=== PATIENT | female | born 1950 | race Caucasian/White ===

== ENCOUNTER → 2016-10-08 | Outpatient (CLI) | payer MEDICARE, MEDICAID ==
[~2016-10-08] MED LIST: ALEN70TA2 PO; ALEN70TA47 PO; BACL10TA PO; CIPR-226 PO; CIPR250S2 PO; DICL75TA2 PO; DIPH25CA79 PO; FLUT16SP22 NS; GABA300C PO; LEVO50TA6 PO; NITR-65 PO; NITR100C10 PO; OMEP20CA12 PO; OXYC-197 PO; OXYC-471 PO; POLY119P5 PO; PRD20T PO; ROSU10TA PO; RT-ALBUINH IH
--- OUTSIDE RECORDS SUMMARY | 2016-10-08 12:53 | XMS REPORT | Continuity of Care Document ---
Author Author [facility] Organization [facility] Address Unknown Phone Unavailable Care Team Providers Care Torpedo Specialist Name Role Phone PCP Unavailable Source Comments Some departments are not documenting in the electronic medical record. If you do not see the information that you expected, contact Release of Information in the Health Information Management department at [phone] for further assistance in locating additional records.[facility] Active Allergies and Adverse Reactions Allergen Noted Date Severity Reactions Comments Amoxicillin 02/01/2003 Allergy recorded in SMS: Amoxicillin~Reactions: HIVES Clarithromycin 02/01/2003 Allergy recorded in SMS: Biaxin~Reactions: HIVES~HIVES/BLISTERS Iodine 02/01/2003 Allergy recorded in SMS: TOPICAL IODINE~Reactions: HIVES~HIVES/BLISTERS Penicillins 02/01/2003 High Allergy recorded in SMS: PCN~Reactions: HIVES Current Medications Not on file Active Problems Not on file Social History Tobacco Use Types Packs/Day Years Used Date Never Assessed Plan of Care Health Maintenance Due Date Last Done Comments Physical (Comprehensive) 1957 Exam Pertussis Vaccine 1960 Tetanus Vaccine 1966 Breast Cancer Screening 1989 Colorectal Cancer 1999 Screening Shingles Vaccine 2009 Osteoporosis Screening 2014 Prevnar/Pneumovax (#1) 2014 Influenza Vaccine 05/14/2016 Results from Last 3 Months Not on file
--- NOTE | 2016-10-08 19:28 | Diagnostic Imaging Report ---
Digital mammogram bilateral screening. This study was compared to the prior exams of 01/01/2015, 06/27/2013, and 04/18/2012. At this time, there are no current complaints. The current study was also evaluated with a Computer Aided Detection (CAD) system. FINDINGS: There are scattered fibroglandular densities in both breasts which could obscure a lesion. In the midportion of the left breast approximately 6-7 cm deep to the nipple there are a few scattered microcalcifications. I am not certain that these calcifications have changed significantly since the prior exams of 06/27/2013 and 01/01/2015. They are more conspicuous on this study, however. I would recommend that a compression/magnification view of this area be obtained in the CC and MLO projections so that these calcifications can be further studied. The overall appearance of the breasts is otherwise stable. There is no primary or secondary sign of malignancy noted. IMPRESSION: Additional mammographic views of the left breast would be recommended for further study. ACR BI-RADS Category 0: Incomplete. (Need additional imaging evaluation). Result letter will be mailed to the patient. Note: At least 10% of breast cancer is not imaged by mammography. Dictated by: Dictated on workstation # [id number]
== END ==
LOC: RAD 12:49
PROVIDERS: ATTEND Nurse Practitioner Family
DX: Z12.31 Encounter for screening mammogram for malignant neoplasm of breast (principal)

== ENCOUNTER → 2016-10-16 | Outpatient (CLI) | payer MEDICARE, MEDICAID ==
--- OUTSIDE RECORDS SUMMARY | 2016-10-16 07:48 | XMS REPORT | Continuity of Care Document ---
Author Author [facility] Organization [facility] Address Unknown Phone Unavailable Care Team Providers Care Wool Classer Name Role Phone PCP Unavailable Source Comments Some departments are not documenting in the electronic medical record. If you do not see the information that you expected, contact Release of Information in the Health Information Management department at [phone] for further assistance in locating additional records.[facility] Active Allergies and Adverse Reactions Allergen Noted [...]
--- NOTE | 2016-10-16 18:57 | Diagnostic Imaging Report ---
CC and lateral magnification views for calcifications are performed. INDICATION: Central slightly inferior left breast calcifications seen on screening. The current study was also evaluated with a Computer Aided Detection (CAD) system. FINDINGS: Focal compression views demonstrate loosely clustered punctate calcifications without associated mass. IMPRESSION: Loosely clustered punctate calcifications in the central slightly inferior aspect of the left breast. These are favored to be benign. Ultrasound correlation is pending. ACR BI-RADS Category 0: Incomplete. (Needs additional imaging evaluation). Result letter will be mailed to the patient. Note: At least 10% of breast cancer is not imaged by mammography. Dictated by: Dictated on workstation # [id number]
--- NOTE | 2016-10-16 19:01 | Diagnostic Imaging Report ---
EXAMINATION: Left breast ultrasound. INDICATION: Calcification seen in the inferior aspect of the left breast. FINDINGS: Unremarkable breast parenchyma is seen with no focal lesion. The four quadrants and retroareolar region of the left breast were scanned. IMPRESSION: Negative study. Six month followup to observe the calcifications of interest is recommended. ACR BI-RADS Category 2: Benign findings. Result letter will be mailed to the patient. Note: At least 10% of breast cancer is not imaged by mammography. Dictated by: Dictated on workstation # [id number]
== END ==
LOC: RAD 07:44
PROVIDERS: ATTEND Nurse Practitioner Family
DX: R92.8 Other abnormal and inconclusive findings on diagnostic imaging of breast (principal)
CPT/HCPCS: 76641

== ENCOUNTER → 2017-11-10 | Outpatient (CLI) | payer MEDICARE, MEDICAID ==
--- NOTE | 2017-11-10 18:43 | Diagnostic Imaging Report ---
INDICATION: Followup of left breast calcifications. Comparison is made with prior mammogram from 10/08/2016 and 01/01/2015. The current study was also evaluated with a Computer Aided Detection (CAD) system. FINDINGS: The cluster of punctate calcifications in the inferior left breast appears to be stable. No associated soft tissue mass is identified. No new calcifications are seen. The axillae are unremarkable. IMPRESSION: Stable left breast calcifications. Patient should return in 6 months for additional 6-month followup of left breast calcifications. ACR BI-RADS Category 3: Probably benign findings. Result letter will be mailed to the patient. Note: At least 10% of breast cancer is not imaged by mammography. Dictated by: Dictated on workstation # [id number]
== END ==
LOC: RAD 13:51
PROVIDERS: ATTEND Nurse Practitioner Family
DX: R92.8 Other abnormal and inconclusive findings on diagnostic imaging of breast (principal)
CPT/HCPCS: 77066

== ENCOUNTER → 2018-04-22 | Outpatient (CLI) | payer MEDICARE, MEDICAID, OTHER ==
--- NOTE | 2018-04-22 14:09 | Diagnostic Imaging Report ---
Indication: Left breast calcifications. Patient presents for six-month followup. Correlation is made with prior mammograms from 11/10/2017 and 10/16/2016 as well as 10/08/2016. Unilateral left 2-D and 3-D diagnostic mammography was performed. The punctate calcifications in the medial and inferior left breast appear stable. No associated soft tissue mass is seen. Remainder of the left breast is unremarkable. Left axilla is unremarkable. Impression: BI-RADS 3 Stable left breast calcifications in the inferior and slightly inner aspect. Followup in 6 months is recommended to confirm stability. ACR BI-RADS Category 3: Probably benign findings. Result letter will be mailed to the patient. Note: At least 10% of breast cancer is not imaged by mammography. Dictated by: Dictated on workstation # [id number]
== END ==
LOC: RAD 12:55
PROVIDERS: ATTEND Nurse Practitioner Family
DX: R92.1 Mammographic calcification found on diagnostic imaging of breast (principal)

== ENCOUNTER 2018-07-20 05:40 | Outpatient (CLI) | payer MEDICARE, OTHER, MEDICAID ==
[~2018-07-20] VITALS: Ht 154.9 cm; Wt 78.0 kg
[~2018-07-20 05:40] MED LIST changes: -OXYC-197 PO; +OXYC1TAB87 PO
[2018-07-20] MEDS ORDERED: prelief PO (15:46)
[2018-07-20] MEDS ORDERED: ROSU20TA31 PO (15:46)
[2018-07-20] MEDS ORDERED: FESO4TAB PO (15:46)
[2018-07-20] MEDS ORDERED: HYDR25TA4 PO (15:46)
[2018-07-20] MEDS ORDERED: NITR100C10 PO (15:46)
[2018-07-20] MEDS ORDERED: LEVO75TA6 PO (15:46)
[2018-07-20] MEDS ORDERED: ALBU18HF2 IH (15:46)
== END 2018-07-20 16:00 | disposition home or self-care (01) ==
LOC: PREOP 05:40
PROVIDERS: ATTEND Surgery
DX: Z01.818 Encounter for other preprocedural examination (principal)

== ENCOUNTER 2018-07-27 07:30 | Day surgery (SDC) | payer MEDICARE, OTHER ==
[~2018-07-27] VITALS: Ht 154.9 cm; Wt 78.0 kg
[~2018-07-27 07:30] MED LIST changes: +ALBU18HF2 IH; +FESO4TAB PO; +HYDR25TA4 PO; +LEVO75TA6 PO; +ROSU20TA31 PO; +prelief PO
[2018-07-27] MEDS ORDERED: LACTATED RINGERS 1,000 ML IV STA (07:41)
[2018-07-27 07:45] VITALS: BP 114/57
[2018-07-27] MEDS ORDERED: HURRICAINE EXT TUBE (BENZOCAINE) XX PRN (07:45)
[2018-07-27] MEDS ORDERED: LACTATED RINGERS 1,000 ML IV ONE (07:46)
[2018-07-27] MEDS ORDERED: MIDAZOLAM 2 MG/2 ML (VERSED) VIAL ONE (07:55)
[2018-07-27] MEDS ORDERED: PROPOFOL INJECTION 50 ML IV ONE (07:55)
--- NOTE | 2018-07-27 08:17 | Progress Note-Pre Operative ---
Pre-Operative Progress Note H&P Reviewed The H&P was reviewed, patient examined and no changes noted. Time Seen by Provider: 08:13 Date H&P Reviewed: Jul 27, 2018 Time H&P Reviewed: 08:14 Pre-Operative Diagnosis: Dsyphagia, Screening Colonoscopy KEISHA SHETH DO Jul 27, 2018 08:17
--- OUTSIDE RECORDS SUMMARY | 2018-07-27 08:23 | XMS REPORT | Clinical Summary ---
Author Author [facility] Organization [facility] Address Unknown Phone Unavailable Care Team Providers Care Independent Living Specialist Name Role Phone PCP Unavailable Allergies Not on File Current Medications Not on file Active Problems Not on file Social History Tobacco Use Types Packs/Day Years Used Date Never Assessed Sex Assigned at Date Recorded Not on file Last Filed Vital Signs Not on file Plan of Treatment Not on file Results Not on filefrom Last 3 Months
--- OUTSIDE RECORDS SUMMARY | 2018-07-27 08:23 | XMS REPORT | Clinical Summary ---
Author Author [facility] Organization [facility] Address Unknown Phone Unavailable Care Team Providers Care Lens Inserter Name Role Phone Caren Colon Unavailable Unavailable Janae Lucas Unavailable Unavailable Leanna Cristobal RN Unavailable Unavailable No Pcp, Na Unavailable Unavailable Source Comments Some departments are not documenting in the electronic medical record. If you do not see the information that you expected, contact Release of Information in the Health Information Management department at [phone] for further assistance in locating additional records.[facility] Allergies Active Allergy Reactions Severity Noted Date Comments Amoxicillin 02/01/2003 Allergy recorded in SMS: Amoxicillin~Reactions: HIVES Clarithromycin 02/01/2003 Allergy recorded in SMS: Biaxin~Reactions: HIVES~HIVES/BLISTERS Iodine 02/01/2003 Allergy recorded in SMS: TOPICAL IODINE~Reactions: HIVES~HIVES/BLISTERS Penicillins High 02/01/2003 Allergy recorded in SMS: PCN~Reactions: HIVES Current Medications Not on file Active Problems Not on file Social History Tobacco Use Types Packs/Day Years Used Date Never Assessed Sex Assigned at Date Recorded Not on file Last Filed Vital Signs Not on file Plan of Treatment Health Maintenance Due Date Last Done Comments HEPATITIS C SCREENING 1950 PHYSICAL (COMPREHENSIVE) 1957 EXAM PERTUSSIS VACCINE 1960 TETANUS VACCINE 1966 BREAST CANCER SCREENING 1989 COLORECTAL CANCER 1999 SCREENING SHINGLES RECOMBINANT 1999 VACCINE (1 of 2) OSTEOPOROSIS 2014 SCREENING/MONITORING PNEUMONIA (PCV13/PPSV23) 2014 VACCINES (1 of 2 - PCV13) INFLUENZA VACCINE 04/13/2018 Results Not on filefrom Last 3 Months
--- OUTSIDE RECORDS SUMMARY | 2018-07-27 08:24 | XMS REPORT ---
Author Author ANTHONY CASTELLANO [facility] Address [address] [place] [address] Care Team Providers Care 911 Operator Name Role Phone GRAY ANTHONY Unavailable PROBLEMS Type Condition ICD9-CM Code EBD95-PR Code Onset Dates Condition Status SNOMED Code Problem Hyperlipemia, mixed E78.2 Active 000411263 Problem Essential hypertension I10 Active 15670908 Problem Esophageal reflux K21.9 Active 428341488 Problem COPD (chronic obstructive pulmonary disease) J44.9 Active 03793726 Problem Rhinitis J31.0 Active 58627906 Problem Neuropathy G62.9 Active 512331011 Problem Acquired hypothyroidism E03.9 Active 564954229 Problem Non-seasonal allergic rhinitis due to pollen J30.1 Active 48134383 Problem Chronic fatigue R53.82 Active 80132897 ALLERGIES Substance Reaction Event Type Date Status Binicolasa hives Drug Allergy Jun, Active ENCOUNTERS Encounter Location Date Diagnosis [facility] [address] [address] Oct, [address] [id number] Jun, Acquired hypothyroidism E03.9 ; Hyperlipemia, mixed E78.2 ; Essential hypertension I10 ; Esophageal reflux K21.9 ; COPD (chronic obstructive pulmonary disease) J44.9 ; Ingrown toenail L60.0 ; Foot pain, bilateral M79.671 ; Noncompliance by refusing intervention or support Z53.29 ; Colon cancer screening Z12.11 and Rhinitis J31.0 [facility] [address] [id number] Jun, Hyperlipemia, mixed E78.2 [facility] [address] [id number] Jun, Hypothyroidism, unspecified type E03.9 ; Hyperlipemia, mixed E78.2 ; Essential hypertension I10 and Encounter for immunization Z23 [facility] [place] [id number] [place] [address] [id number] Jun, [facility] [place] [address] [id number] May, Essential hypertension I10 [facility] [id number] [place] [address] [id number] May, Hypothyroidism, unspecified type E03.9 ; Essential hypertension I10 and Hyperlipemia, mixed E78.2 [facility] [place] [id number] [place] [address] [id number] Apr, [facility] [place] [address] [id number] Apr, Abnormal mammogram of left breast R92.8 [facility] [id number] [place] [address] [id number] Mar, Abnormal mammogram of left breast R92.8 [facility] [id number] [place] [address] [id number] Mar, [facility] [id number] [place] [address] [id number] Mar, [facility] [id number] [place] [address] 2546 Feb, Sore throat and laryngitis J06.0 and Strep throat J02.0 [facility] [id number] [place] [address] 30[address] 2542 Dec, [facility] [place] [id number] [place] [address] [id number] Dec, [facility] [id number] [place] [address] [id number] Dec, Dilated pore of Mk of back L70.8 ; Seborrheic keratoses L82.1 and Non- seasonal allergic rhinitis due to pollen J30.1 [facility] [id number] [id number] Dec, [id number] [place] [address] [id number] Oct, [facility] [address] [id number] Oct, Screening breast examination Z12.31 and History of abnormal mammogram Z87.898 [facility] [id number] [place] [address] [id number] Sep, [address] [place] [address] [id number] Sep, [place] [id number] [place] [address] [id number] Sep, [place] [id number] [place] [address] [id number] Jun, Obesity (BMI 30.0-34.9) E66.9 ; Chronic fatigue R53.82 ; Neuropathy G62.9 ; Essential hypertension I10 and Encounter for immunization Z23 [place] [id number] [place] [address] [id number] Jun, Neuropathy G62.9 and Essential hypertension I10 [place] [id number] [place] [address] [id number] Apr, [place] [id number] [place] [address] [id number] Mar, Neuropathy G62.9 ; Hypothyroidism, unspecified type E03.9 ; Essential hypertension I10 ; Muscle spasm M62.838 and Hyperlipemia, mixed E78.2 [address] [place] [address] [id number] Feb, [place] [id number] [place] [address] [id number] January, [address] [place] [address] [id number] Dec, [place] [id number] [place] [address] [id number] Dec, Hypothyroidism, unspecified type E03.9 [address] [place] [address] [id number] Nov, [place] [id number] [place] [address] [id number] Nov, Neuropathy G62.9 ; Sinus congestion R09.81 ; Hyperlipemia, mixed E78.2 and Hypothyroidism, unspecified type E03.9 [facility] [place] [id number] [place] [address] [id number] Nov, Neuropathy G62.9 [facility] [place] [id number] [place] [address] [id number] Nov, Sinus congestion R09.81 and Acquired hypothyroidism E03.9 [facility] [place] [address] [id number] Nov, Acquired hypothyroidism E03.9 [facility] [place] [address] [id number] Oct, [facility] [address] [id number] Oct, Sinus congestion R09.81 and Neuropathy G62.9 [facility] [place] [id number] [place] [address] [id number] Oct, Fever, unspecified R50.9 ; Sinus congestion R09.81 and Neuropathy G62.9 [facility] [id number] [place] [address] Oct [facility] [place] [id number] [place] [address] [id number] Oct, Abnormal mammogram of left breast R92.8 [facility] [place] [id number] [place] [address] [id number] Sep, Abnormal mammogram R92.8 [facility] [place] [id number] [place] [address] [id number] Sep, Acquired hypothyroidism E03.9 [facility] [place] [id number] [place] [address] [id number] Sep, Hypothyroidism, unspecified type E03.9 ; Hyperlipemia, mixed E78.2 and Essential hypertension I10 [facility] [place] [id number] [place] [address] [id number] Sep, Hypothyroidism, unspecified type E03.9 and Hyperlipemia, mixed E78.2 [facility] [place] [address] [id number] Aug, Acute maxillary sinusitis, recurrence not specified J01.00 [place] [address] [id number] Jul, Hyperlipemia, mixed E78.2 [place] [address] [id number] Jul, Acquired hypothyroidism E03.9 ; Hyperlipemia, mixed E78.2 ; Multiple joint pain M25.50 ; Esophageal reflux K21.9 ; Otitis media with effusion, right H65.91 and Essential hypertension I10 [address] [id number] Jul, Gastroesophageal reflux disease, esophagitis presence not specified K21.9 [place] [address] [id number] May, [address] [id number] Apr, Cystitis N30.90 and Well woman exam Z01.419 [place] [id number] [place] [address] [id number] Apr, Hematuria R31.9 and Dysuria R30.[address] [id number] Apr, [address] [id number] Apr, Urinary tract infection, site not specified N39.0 and Hematuria, unspecified R31.9 [place] [id number] [place] [address] [id number] Dec, [place] [id number] [place] [address] [id number] Nov, [address] [id number] Oct, Hyperlipemia, mixed E78.2 [place] [id number] [place] [address] [id number] Oct, Gastroesophageal reflux disease, esophagitis presence not specified K21.9 ; Acute serous otitis media of left ear, recurrence not specified H65.02 ; Hyperlipemia, mixed E78.2 and Hypothyroidism, unspecified type E03.9 [address] [place] [address] [id number] Sep, [place] [id number] [place] [address] [id number] Sep, Actinic keratoses L57.0 and Stuffy and runny nose J34.89 [place] [address] [place] [address] [id number] Aug, [place] [address] [place] [address] [id number] Aug, Acute cystitis with hematuria N30.01 [place] [address] [place] [address] [id number] Jul, Reflux esophagitis K21.0 ; Acquired deformities of toe, 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 ; Multiple joint pain M25.50 and Sinus congestion R09.[address] [place] [address] [id number] Jul, [place] [address] [place] [address] [id number] Jun, Acute cystitis without hematuria N30.00 ; Dysuria R30.0 ; Flank pain R10.9 and High risk medication use Z79.8[address] [place] [address] [id number] Jun, Urinary tract infection N39.0 [place] [address] [facility] [id number] [id number] Jun, [place] [id number] [id number] Jun, Urinary tract infection, site not specified 599.0 and Encounter for immunization Z23 [facility] [address] [id number] Jun, [place] [id number] [place] [address] [id number] May, [address] [place] [address] [id number] Dec, [facility] [place] [facility] [address] [facility] [id number] [place] [address] 9[address] Dec, [facility] [place] [facility] [address] [facility] [id number], [place] [address] 3[address] Dec, [facility] [address] [facility] [id number] [place] [id number] Oct, [facility] [place] [facility] [address] [facility] [id number][place] [address] 0[address] Oct, [facility] [address] [facility] [id number] [place] [id number] Sep, [facility] [place] [facility] [address] [facility] [id number] [place] [address]- 5816 Sep, [facility] [address] [facility] [id number] [place] [id number] Sep, [facility] [place] [facility] [address] [facility] [id number] [address] 4[address] Sep, [facility] [address] [id number] [place] [id number] Aug, [facility] [address] [facility] [id number] [place] [id number] Aug, [facility] [place] [facility] [address] [facility] [id number], [place] [address] 9[address] Aug, [facility] [place] [facility] [address] [facility] [id number] [address]- 0076 Aug, [facility] [address] [facility] [id number] [place] [id number] Aug, [facility] [place] [facility] [address] [facility] [id number], [place] [address] 84[address] Aug, [facility] [address] [facility] [id number] [place] [id number] Jul, [facility] [place] [facility] [address] [facility] [id number], [place] [address]- 9[address] Jul, [facility] [address] [id number] [place] [id number] Jul, [facility] [place] [facility] [address] [facility] [id number], [place] [address]- 30[address] Jul, [facility] [address] [facility] [id number] [place] [id number] Jul, [facility] [place] [facility] [address] [facility] [id number], [place] [address]- 8[address] Jul, [facility] [address] [id number] [place] [id number] Jul, [facility] [place] [facility] [address] [facility] [id number] [place] [address] Jul, [facility] [place] [facility] [address] [facility] [id number], [place] [address]- 68[address] Jun, [facility] [place] [facility] [address] [facility] [id number][place] [address]- 1763 Jun, [facility] [address] [facility] [id number] [place] [id number] Jun, [facility] [place] [facility] [address] [facility] [id number], [place] [address]- 2811 Jun, [facility] [place] [facility] [address] [facility] [id number][place]59[place]- 0171 Jun, [facility] [address] [facility] [id number] [place] [id number] Jun, [facility] [address] [facility] [id number] [place] [id number] Jun, [facility] [place] [facility] [address] [facility] [id number][place] [address]- 8660 Jun, [facility] [address] [facility] [id number] [place] [id number] Jun, [facility] [place] [facility] [address] [facility] [id number][place] [address]- 4087 Jun, [facility] [address] [facility] [id number] [place] [id number] May, [facility] [place] [facility] [address] [facility] [id number] [place] [address]- 3591 May, [facility] [address] [facility] [id number] [place] [id number] May, [facility] [place] [facility] [address] [facility] [id number] [place] [address]- 1705 May, [facility] [place] [facility] [address] [facility] [id number] [place] [address]- 4683 Apr, [facility] [place] [facility] [address] [facility] [id number] [place] [address]- 8313 Apr, [facility] [address] [facility] [id number] [place] [id number] Apr, [facility] [place] [facility] [address] [facility] [id number] [place] [address]- 2259 Apr, [facility] [address] [facility] [id number] [place] [id number] Mar, [facility] [place] [facility] [address] [facility] [id number] [place] [address]- 3824 Mar, [facility] [address] [id number] [place] [id number] Feb, [facility] [place] [facility] [address] [facility] [id number] [address]- 6557 Feb, [facility] [address] [facility] [id number] [place] [id number] January, [facility] [place] [facility] [address] [facility] [id number], [place] [address]- 7934 January, [facility] [address] [id number] [place] [id number] January, [facility] [place] [facility] [address] [facility] [id number] [place] [address]- 8010 January, [facility] [address] [facility] [id number] [place] 055542252 Dec, [facility] [place] [facility] [address] [facility] [id number] [place] [address]- 6480 Dec, [facility] [address] [facility] [id number] [place] [id number] Dec, [facility] [address] [facility] [id number], [place] [address]- 5026 Dec, [facility] [address] [facility] [id number] [place] 54[address] Nov, [facility] [address] [facility] [id number][place] [address]- 2560 Nov, [facility] [place] [facility] [address] [facility] [id number], [place] [address]- 7477 Oct, [facility] [address] [facility] [id number], [place] [address]- 9027 Oct, [facility] [place] [facility] [address] [place] [address] [id number] [address]- 5573 Sep, [facility] [id number] [place] 627808808 Sep, [facility] [address] [place] [address] [id number] [place] 645406216 Sep, [facility] [address] [address]- [address] Sep, [facility] [address] [place] [id number] [place] 150659626 Aug, [facility] [address], [place] [address]- 8236 Aug, [facility] [address] [facility] [id number] [place] [id number] Jul, [facility] [place] [facility] [address] [facility] [id number][place] [address]- 1458 Jul, [facility] [address] [facility] [id number] [place] 800541268 Jul, [facility] [place] [facility] [address] [facility] [id number][place] [address]- 1056 Jul, [facility] [id number] [place] [id number] Jul, [facility] [place] [facility] [address] [facility] [id number], [place] [address]- 2546 Jul, [facility] [address] [id number] [place] 514538385 Jul, [facility] [place] [facility] [address] [facility] [id number], [place] [address]- 2546 Jul, [facility] [place] [facility] [address] [facility] [id number] [place] [address]- 2546 Jul, [facility] [address] [id number] [place] 371662202 Jun, [facility] [place] [facility] [address] [facility] [id number], [place] [address]- 2546 Jun, [facility] [address] [id number] [place] 344460929 Jun, [facility] [address] [id number] [place] 744695444 Jun, [facility] [place] [facility] [address] [facility] [id number], [place] [address]- 2556 Jun, [facility] [place] [facility] [address], [place] [address]- 8236 Jun, [facility] [address] [id number] [place] 225284214 Jun, [facility] [place] [facility] [address], [place] [address]- 2546 Jun, [facility] [place] [facility] [address] [facility] [id number], [place] [address]- 2546 Jun, [facility] [address] [id number] [place] 478219153 May, [facility] [address] [id number] [place] 794235026 May, [facility] [address] [id number] [place] 171457683 May, [facility] [address] [id number] [place] 087719660 May, [facility] [address] [id number] [place] 552314896 Apr, [facility] [address] [id number] [place] [id number] Feb, [facility] [address] [id number] [place] [id number] Feb, [facility] [address] [facility] [id number], [place] [address]- 2546 Feb, [facility] [address] [id number] [place] 876191835 January, [facility] [address] [facility] [id number], [place] [address]- 3926 January, [facility] [address] [id number] [place] [id number] January, [facility] [address] [id number] [place] [id number] January, [facility] [address] [id number] [place] 415583407 January, [facility] [place] [facility] [address]005[address]100[place], [place] [address]- 1062 Nov, [facility] [place] [facility] [address]00565100[place], [place] [address]- 7370 Nov, [facility] [address] [id number] [place] [id number] Oct, [facility] [address] [id number] [place] [id number] Oct, [facility] [address] [id number] [place] [id number] Oct, [facility] [address] [id number] [place] [id number] Oct, [facility] [place] [facility] [address] [place] [address] [id number], [place] [address]- 1635 Oct, [facility] [place] [facility] [address]100[place], [place] [address]- 6856 Oct, [facility] [address] [id number] [place] 810553660 Sep, [facility] [address] [facility] [id number], [place] [address]- 9851 Sep, [facility] [address] [id number] [place] [id number] Sep, [facility] [address] [id number] [place] 316054413 Sep, [facility] [address] [id number] [place] 736045697 Jun, [facility] [address] [facility] [id number][place] [address]- 8331 Jun, [facility] [address] [id number] [place] [id number] May, [facility] [address] [id number] [place] 758807982 May, [facility] [address] [id number] [place] 894064507 Apr, [facility] [address] [id number] [place] 030578592 Apr, [facility] [address] [id number] [place] 786153866 Apr, [facility] [address] [id number] [place] [id number] Mar, [facility] [address] [facility] [id number][place] [address]- 3624 Feb, [facility] [address] [id number] [place] [id number] Nov, [facility] [address] [id number] [place] [id number] Nov, [facility] [address] [facility] [id number] [id number] Nov, [facility] [id number] [id number] Nov, [facility] [address] [facility] [id number], [place] [address] Nov, [facility] [address] [facility] [id number] [place] [id number] Nov, [facility] [address] [facility] [id number] [place] [id number] Sep, [facility] [address] [facility] [id number] [place] [id number] Sep, IMMUNIZATIONS No Known Immunizations SOCIAL HISTORY Never Assessed REASON FOR VISIT IPT- Establish care, f/u on labs [facility] PLAN OF CARE Activity Details Follow Up 3 months or as indicated by lab Reason:[facility]ITAL SIGNS Height 62 in 2018-07-08 Weight 174.1 lbs 2018-07-08 Temperature 99.2 degrees Fahrenheit 2018-07-08 Heart Rate 80 bpm 2018-07-08 Respiratory Rate 16 2018-07-08 BMI 31.84 kg/m2 2018-07-08 Blood pressure systolic 120 mmHg 2018-07-08 Blood pressure diastolic 70 mmHg 2018-07-08 MEDICATIONS Medication Instructions Dosage Frequency Start Date End Date Duration Status Levothyroxine Sodium 75MCG Orally Once a day 1 tablet 24h Active Toviaz 4 MG Orally Once a day 1 tablet 24h 30 day(s) Active Diclofenac Sodium 75 mg Orally twice a day as needed 1 tablet 30 Active Zyrtec Allergy 10 mg Orally Once a day 1 tablet 24h Jun, Jul, 30 day(s) Active Crestor 20 mg Orally Once a day 1 tablet 24h Active Fosamax 70 MG Orally once a week, take 30 min before eating and avoid lying down for 30 min. 1 tablet 0 Active MiraLax Active Omeprazole 20 mg Orally Once a day 1 capsule 24h Active Fluticasone Propionate 50 mcg/act Nasally Once a day 2 spray in each nostril 24h Active Baclofen 10MG Orally Once a day 1 tablet with food or milk 24h 0 days Active Ventolin HFA 90 MCG/ACT Inhalation every 4 hrs 2 puffs as needed 4h Active Diclofenac Sodium 1 % Transdermal 3 times a day as needed apply 2 grams Mar, 0 days Active Prelief 340 (65-50) MG (CA-P) Orally 8 time(s) a day 2 tablets Active Hydrochlorothiazide 25MG oral daily 1 tablet 24h Active RESULTS No Results PROCEDURES Procedure Date Ordered Result Body Site [facility] VISIT ESTABLISHED PATIENT Jul 08, 2018 INSTRUCTIONS MEDICATIONS ADMINISTERED No Known Medications MEDICAL (GENERAL) HISTORY Type Description Date Medical History hyperlipidemia Medical History acid reflux Medical History allergies Medical History Arthritis Medical History chronic obstructive pulmonary disease (COPD) Medical History osteoporosis Medical History thyroid disorder Medical History Anal fissure Medical History Memory loss Medical History Other psoriasis Medical History Primary localized osteoarthrosis, hand Medical History Diverticulosis of colon (without mention of hemorrhage) Medical History Actinic keratosis Medical History Multiple joint pain Medical History Abnormal mammogram of left breast Surgical History foot surgery rt hammer toe and b union_ repair 05/2015 Surgical History bladder surgery--prolapse x 2 2003, 2005 Surgical History partial hysterectomy 1979 Surgical History carpal tunnel release-bilateral 1997 Surgical History colonoscopy 2013 Surgical History right ankle surgery x 5 (ankle is now fused) 2010 Surgical History decompressive lumbar laminectomy and fusion L4-S1 03/06/2016 Surgical History Hemmroidectomy-Dr. YANG in [place] 2013 Hospitalization History surgeries Hospitalization History [facility] for abdominal/chest pain 07/2015 Hospitalization History Inpt for lumbar surgery x's 10 days 02/2015 Hospitalization History Pt was in [facility] for rehab from surgery, Dx with UTI
--- OUTSIDE RECORDS SUMMARY | 2018-07-27 08:24 | XMS REPORT ---
Author Author ZARINA RAYO [facility] Address [address] [place] [address] Care Team Providers Care Manager Market Development Name Role Phone ZARINA RAYO Unavailable PROBLEMS Type Condition ICD9-CM Code OPQ83-SB Code Onset Dates Condition Status SNOMED Code Problem Hyperlipemia, mixed E78.2 Active 251146994 Problem Essential hypertension I10 Active 11671520 Problem Esophageal reflux K21.9 Active 195415779 Problem COPD (chronic obstructive pulmonary disease) J44.9 Active 00819276 Problem Rhinitis J31.0 Active 12971333 Problem Neuropathy G62.9 Active 730057839 Problem Acquired hypothyroidism E03.9 Active 828306693 Problem Non-seasonal allergic rhinitis due to pollen J30.1 Active 98666334 Problem Chronic fatigue R53.82 Active 19453591 ALLERGIES Substance Reaction Event Type Date Status Biaxin hives Drug Allergy Jul, Active ENCOUNTERS Encounter Location Date Diagnosis [facility] [address] [facility] [id number], [place] [address] Oct, [address] [id number] [id number] Jul, Urinary tract infection, site not specified N39.0 and Dysuria R30.0 [place] [id number] [id number] Jun, Acquired hypothyroidism E03.9 ; Hyperlipemia, mixed E78.2 ; Essential hypertension I10 ; Esophageal reflux K21.9 ; COPD (chronic obstructive pulmonary disease) J44.9 ; Ingrown toenail L60.0 ; Foot pain, bilateral M79.671 ; Noncompliance by refusing intervention or support Z53.29 ; Colon cancer screening Z12.11 and Rhinitis J31.0 [facility] [id number][place] [id number] Jun, Hyperlipemia, mixed E78.2 [facility] [place] [id number] [place] [address] [id number] Jun, Hypothyroidism, unspecified type E03.9 ; Hyperlipemia, mixed E78.2 ; Essential hypertension I10 and Encounter for immunization Z23 [facility] [place] [id number] [place] [address] [id number] Jun, [facility] [place] [address] [id number] May, Essential hypertension I10 [facility] [place] [id number] [place] [address] [id number] May, Hypothyroidism, unspecified type E03.9 ; Essential hypertension I10 and Hyperlipemia, mixed E78.2 [facility] [place] [id number] [place] [address] [id number] Apr, [facility] [place] [id number] [place] [address] [phone] Apr, Abnormal mammogram of left breast R92.8 [facility] [place] [id number] [place] [address] [id number] Mar, Abnormal mammogram of left breast R92.8 [facility] [place] [id number] [place] [address] [id number] Mar, [facility] [place] [id number] [place] [address] [phone] Mar, [facility] [id number] [place] [address] Feb, Sore throat and laryngitis J06.0 and Strep throat J02.0 [facility] [address]00565[address], [place] [address] Dec, [facility] [place] [id number] [place] [address] [id number] Dec, [facility] [place] [id number] [place] [address] [id number] Dec, Dilated pore of Mk of back L70.8 ; Seborrheic keratoses L82.1 and Non- seasonal allergic rhinitis due to pollen J30.1 [facility] [place] [address] [id number] [id number] Dec, [facility] [place] [address] [place] [address] [id number], [place] [id number] Oct, [facility] [place] [address] [facility] [id number], [place] [id number] Oct, Screening breast examination Z12.31 and History of abnormal mammogram Z87.898 [facility] [place] [id number], [place] [id number] Sep, [facility] [place] [address] [facility] [id number][place] [id number] Sep, [facility] [place] [id number] [place] [address] [id number] Sep, [facility] [id number], [place] [id number] Jun, Obesity (BMI 30.0-34.9) E66.9 ; Chronic fatigue R53.82 ; Neuropathy G62.9 ; Essential hypertension I10 and Encounter for immunization Z23 [facility] [address] [facility] [id number][place] [id number] Jun, Neuropathy G62.9 and Essential hypertension I10 [facility] [place] [id number] [place] [address] [id number] Apr, [facility] [place] [id number], [place] [id number] Mar, Neuropathy G62.9 ; Hypothyroidism, unspecified type E03.9 ; Essential hypertension I10 ; Muscle spasm M62.838 and Hyperlipemia, mixed E78.2 [facility] [place] [address] [facility] [id number], [place] [id number] Feb, [facility] [place] [id number] [place] [address] [id number] January, [facility] [place] [id number] [place] [address] [id number] Dec, [facility] [place] [address] [facility] [id number], [place] [id number] Dec, Hypothyroidism, unspecified type E03.9 [facility] [place] [id number] [place] [address] [id number] Nov, [facility] [address] [id number] Nov, Neuropathy G62.9 ; Sinus congestion R09.81 ; Hyperlipemia, mixed E78.2 and Hypothyroidism, unspecified type E03.9 [facility] [place] [id number] [place] [address] [id number] Nov, Neuropathy G62.9 [facility] [place] [id number] [place] [address] [id number] Nov, Sinus congestion R09.81 and Acquired hypothyroidism E03.9 [facility] [address] [id number] Nov, Acquired hypothyroidism E03.9 [facility] [place] [id number] [place] [address] [id number] Oct, [facility] [place] [id number] [place] [address] [id number] Oct, Sinus congestion R09.81 and Neuropathy G62.9 [facility] [id number] [place] [address] [id number] Oct, Fever, unspecified R50.9 ; Sinus congestion R09.81 and Neuropathy G62.9 [facility] [address] [id number] [place] [address] Oct [facility] [place] [id number] [place] [address] [id number] Oct, Abnormal mammogram of left breast R92.8 [facility] [id number] [place] [address] [id number] Sep, Abnormal mammogram R92.8 [facility] [place] [id number] [place] [address] [id number] Sep, Acquired hypothyroidism E03.9 [facility] [place] [id number] [place] [address] [id number] Sep, Hypothyroidism, unspecified type E03.9 ; Hyperlipemia, mixed E78.2 and Essential hypertension I10 [place] [id number] [place] [address] [id number] Sep, Hypothyroidism, unspecified type E03.9 and Hyperlipemia, mixed E78.[address] [id number] Aug, Acute maxillary sinusitis, recurrence not specified J01.[address] [id number] Jul, Hyperlipemia, mixed E78.[address] [id number] Jul, Acquired hypothyroidism E03.9 ; Hyperlipemia, mixed E78.2 ; Multiple joint pain M25.50 ; Esophageal reflux K21.9 ; Otitis media with effusion, right H65.91 and Essential hypertension I10 [place] [id number] [place] [address] [id number] Jul, Gastroesophageal reflux disease, esophagitis presence not specified K21.[address] [id number] May, [address] [id number] Apr, Cystitis N30.90 and Well woman exam Z01.[address] [id number] Apr, Hematuria R31.9 and Dysuria R30.[address] [id number] Apr, [address] [id number] Apr, Urinary tract infection, site not specified N39.0 and Hematuria, unspecified R31.[address] [id number] Dec, [address] [id number] Nov, [place] [id number] [place] [address] [id number] Oct, Hyperlipemia, mixed E78.2 [address] [id number] Oct, Gastroesophageal reflux disease, esophagitis presence not specified K21.9 ; Acute serous otitis media of left ear, recurrence not specified H65.02 ; Hyperlipemia, mixed E78.2 and Hypothyroidism, unspecified type E03.9 [address] [place] [address] [id number] Sep, [place] [id number] [place] [address] [id number] Sep, Actinic keratoses L57.0 and Stuffy and runny nose J34.89 [place] [id number] [place] [address] [id number] Aug, [place] [id number] [place] [address] [id number] Aug, Acute cystitis with hematuria N30.01 [place] [id number] [place] [address] [id number] Jul, Reflux esophagitis K21.0 ; Acquired deformities of toe, 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 ; Multiple joint pain M25.50 and Sinus congestion R09.81 [address] [place] [address] [id number] Jul, [place] [id number] [place] [address] [id number] Jun, Acute cystitis without hematuria N30.00 ; Dysuria R30.0 ; Flank pain R10.9 and High risk medication use Z79.899 [address] [place] [address] [id number] Jun, Urinary tract infection N39.0 [facility] [address] [id number] [id number] Jun, [place] [id number] [place] [address] [id number] Jun, Urinary tract infection, site not specified 599.0 and [facility]counter [facility] [address]00565[place] [id number] Jun, [facility] [address] [id number] [place] [id number] May, [facility] [address] [id number] [place] [id number] Dec, [facility] [place] [facility] [address] [facility] [id number], [place] [address] Dec, [facility] [place] [facility] [address]00565100[place], [place] [address] Dec, [facility] [address] [id number] [place] [id number] Oct, [facility] [place] [facility] [address] [facility] [id number], [place] [address] 12[address] Oct, [facility] [address] [facility] [id number], [place] [id number] Sep, [facility] [place] [facility] [address]00565100[place], [place] [address] Sep, [facility] [address] [id number], [place] [id number] Sep, [facility] [place] [facility] [address]00565[address], [place] [address] Sep, [facility] [address] [facility] [id number], [place] [id number] Aug, [facility] [address] [id number], [place] [id number] Aug, [facility] [place] [facility] [address] [facility] [id number], [place] [address]- 0090 Aug, [facility] [place] [facility] [address] [facility] [id number], [place] [address] 9431 Aug, [facility] [address] [id number], [place] [id number] Aug, [facility] [place] [facility] [address] [facility] [id number], [place] [address] 5[address] Aug, [facility] [address] [facility] [id number], [place] [id number] Jul, [facility] [place] [facility] [address] [id number] [place] [address]- 21[address] Jul, [facility] [address] [id number] [place] [id number] Jul, [facility] [place] [facility] [address] [id number] [place] [address]- 7812 Jul, [facility] [address] [id number] [place] [id number] Jul, [facility] [place] [facility] [address] [id number] [place] [address]- 0857 Jul, [facility] [address] [facility] [id number] [place] [id number] Jul, [facility] [place] [facility] [address] [facility] [id number], [place] [address] 36[address] Jul, [facility] [place] [facility] [address] [facility] [id number], [place] [address]- 8836 Jun, [facility] [place] [facility] [address] [facility] [id number], [place] [address]- 2712 Jun, [facility] [address] [facility] [id number], [place] [id number] Jun, [facility] [place] [facility] [address] [facility] [id number], [place] [address]- 3529 Jun, [facility] [place] [facility] [address] [id number][place] [address]- 9369 Jun, [facility] [address] [id number], [place] [id number] Jun, [facility] [address] [id number] [place] [id number] Jun, [facility] [place] [facility] [address] [facility] [id number], [place] [address]- 4714 Jun, [facility] [address] [id number] [place] [id number] Jun, [facility] [place] [facility] [address] [facility] [id number], [place] [address]- 1127 Jun, [facility] [address] [id number] [place] [id number] May, [facility] [place] [facility] [address] [facility] [id number], [place] [address]- 2[address] May, [facility] [address] [id number] [place] [id number] May, [facility] [place] [facility] [address] [facility] [id number][place] [address]- 4820 May, [facility] [place] [facility] [address] [facility] [id number] [place] [address]- 8293 Apr, [facility] [place] [facility] [address] [facility] [id number], [place] [address]- 9981 Apr, [facility] [address] [facility] [id number] [place] [id number] Apr, [facility] [place] [facility] [address] [facility] [id number], [place] [address]- 3[address] Apr, [facility] [address] [facility] [id number] [place] [id number] Mar, [facility] [place] [facility] [address] [facility] [id number], [place] [address]- 7681 Mar, [facility] [address] [id number] [place] [id number] Feb, [facility] [place] [facility] [address] [facility] [id number], [place] [address]- 6554 Feb, [facility] [address] [id number] [place] [id number] January, [facility] [place] [facility] [address] [id number], [place] [address]- 6183 January, [facility] [address] [id number] [place] [id number] January, [facility] [place] [facility] [address] [facility] [id number], [place] [address]- 1566 January, [facility] [address] [id number] [place] [id number] Dec, [facility] [place] [facility] [address] [facility] [id number], [place] [address]- 2856 Dec, [facility] [address] [facility] [id number] [place] [id number] Dec, [facility] [place] [facility] [address] [facility] [id number], [place] [address]- 0736 Dec, [facility] [address] [facility] [id number], [place] 888801884 Nov, [facility] [place] [facility] [address] [facility] [id number] [place] [address]- 8769 Nov, [facility] [place] [facility] [address] [facility] [id number], [place] [address]- 2292 Oct, [facility] [place] [facility] [address]65[address], [place] [address]- 9573 Oct, [facility] [place] [facility] [address] [id number], [place] [address]- 5[address] Sep, [facility] [address] [facility] [id number], [place] 817879840 Sep, [facility] [address] [facility] [id number], [place] [id number] Sep, [facility] [place] [facility] [address] [facility] [id number], [place] [address]- 6926 Sep, [facility] [address] [facility] [id number], [place] 314310324 Aug, [facility] [place] [facility] [address] [facility] [id number], [place] [address]- 5076 Aug, [facility] [address] [facility] [id number] [place] [id number] Jul, [facility] [place] [facility] [address] [facility] [id number], [place] [address]- 4496 Jul, [facility] [address] [id number], [place] [id number] Jul, [facility] [place] [facility] [address] [facility] [id number], [place] [address]- 1656 Jul, [facility] [address] [facility] [id number], [place] 445243701 Jul, [facility] [place] [facility] [address] [facility] [id number], [place] [address]- 2546 Jul, [facility] [address] [facility] [id number], [place] 833517061 Jul, [facility] [place] [facility] [address] [facility] [id number], [place] [address] 2546 Jul, [facility] [place] [facility] [address] [facility] [id number], [place] [address]- 3176 Jul, [facility] [address] [id number], [place] 045374042 Jun, [facility] [place] [facility] [address]00565[address], [place] [address]- 3806 Jun, [facility] [address] [facility] [id number], [place] 012775812 Jun, [facility] [place] [address] [facility] [id number], [place] 210210597 Jun, [facility] [place] [facility] [address] [id number], [place] [address]- 1066 Jun, [facility] [place] [facility] [address] [facility] [id number], [place] [address]- 5916 Jun, [facility] [address] [facility] [id number], [place] 280543602 Jun, [facility] [place] [facility] [address] [facility] [id number], [place] [address]- 4086 Jun, [facility] [place] [facility] [address] [facility] [id number][place] [address]- 9406 Jun, [facility] [address] [facility] [id number], [place] 175026783 May, [facility] [address] [facility] [id number], [place] 970923945 May, [facility] [address] [id number] [place] [id number] May, [facility] [address] [id number] [place] [id number] May, [facility] [address] [id number] [place] [id number] Apr, [facility] [address] [id number] [place] [id number] Feb, [facility] [address] [id number] [place] [id number] Feb, [facility] [address] [facility] [id number], [place] [address]- 2546 Feb, [facility] [address] [id number] [place] [id number] January, [facility] [address]00565100[place], [place] [address]- 2546 January, [facility] [address] [id number] [place] [id number] January, [facility] [address] [id number] [place] [id number] January, [facility] [address] [id number] [place] [id number] January, [facility] [address]00565100[place], [place] [address]- 2546 Nov, [facility] [address]00565100[place], [place] [address]- 2546 Nov, [facility] [address] [id number] [place] [id number] Oct, [facility] [address] [id number] [place] [id number] Oct, [facility] [address] [id number] [place] [id number] Oct, [facility] [address] [id number] [place] [id number] Oct, [facility] [address]00565100[place], [place] [address]- 5157 Oct, [facility] [address] [facility] [id number], [place] [address]- 6552 Oct, [facility] [address] [id number] [place] [id number] Sep, [facility] [address] [facility] [id number], [place] [address]- 0780 Sep, [facility] [address] [id number] [place] [id number] Sep, [facility] [address] [id number] [place] [id number] Sep, [facility] [address] [id number] [place] [id number] Jun, [facility] [address] [facility] [id number], [place] [address] Jun, [facility] [address] [id number] [place] [id number] May, [facility] [address] [id number] [place] [id number] May, [facility] [address] [id number] [place] [id number] Apr, [facility] [address] [id number] [place] [id number] Apr, [facility] [address] [id number] [id number] Apr, [facility] [address] [id number][place] [id number] Mar, [facility] [address] [facility] [id number], [place] [address] Feb, [facility] [address] [id number][place] [id number] Nov, [facility] [address] [id number][place] [id number] Nov, [facility] [address] [facility] [id number], [place] [address] Nov, [facility] [address] [facility] [id number] [place] [address] Nov, [facility] [address] [facility] [id number], [place] [address] Nov, [facility] [address] [facility] [id number][place] [id number] Nov, [facility] [address] [facility] [id number][place] [id number] Sep, [facility] [address] [facility] [id number][place] [id number] Sep, IMMUNIZATIONS No Known Immunizations SOCIAL HISTORY Never Assessed REASON FOR VISIT Frequency in urination, burning on urination. Started 3 days ago. Chris de oliveira PLAN OF CARE Activity Details Follow Up 1 Week, prn Reason: VITAL SIGNS Height 62 in 2018-07-23 Weight 175.4 lbs 2018-07-23 Temperature 98.9 degrees Fahrenheit 2018-07-23 Heart Rate 84 bpm 2018-07-23 Respiratory Rate 18 2018-07-23 BMI 32.08 kg/m2 2018-07-23 Blood pressure systolic 120 mmHg 2018-07-23 Blood pressure diastolic 74 mmHg 2018-07-23 MEDICATIONS Medication Instructions Dosage Frequency Start Date End Date Duration Status Toviaz 4 MG Orally Once a day 1 tablet 24h 30 day(s) Active Ventolin HFA 90 MCG/ACT Inhalation every 4 hrs 2 puffs as needed 4h Active Omeprazole 20 mg Orally Once a day 1 capsule 24h Active Prelief 340 (65-50) MG (CA-P) Orally 8 time(s) a day 2 tablets Active Fosamax 70 MG Orally once a week, take 30 min before eating and avoid lying down for 30 min. 1 tablet 0 Active Zyrtec Allergy 10 mg Orally Once a day 1 tablet 24h Jun, Jul, 30 day(s) Active Fluticasone Propionate 50 mcg/act Nasally Once a day 2 spray in each nostril 24h Active Diclofenac Sodium 75 mg Orally twice a day as needed 1 tablet 30 Active Diclofenac Sodium 1 % Transdermal 3 times a day as needed apply 2 grams Mar, 0 days Active Baclofen 10MG Orally Once a day 1 tablet with food or milk 24h 0 days Active Ciprofloxacin 500 mg Orally Once a day 1 tablet 24h Jul, 17 Jul, 2018 7 days Active Hydrochlorothiazide 25MG oral daily 1 tablet 24h Active MiraLax Active Pyridium 100 mg Orally Three times a day 1 tablet after meals 8h Jul, Jul, 3 days Active Crestor 20 mg Orally Once a day 1 tablet 24h Active Levothyroxine Sodium 75MCG Orally Once a day 1 tablet 24h 30 Active RESULTS Name Result Date Reference Range UA LONG DIP (IN HOUSE) Lot # [id number] Exp date 04/12/2019 Clarity cloudy Color yellow Odor yes GLU negative CEE negative KET negative SG 1.025 BLO 3+ pH 6.0 Protein 2+ URO 0.2 NIT POSITIVE ISA 3+ Lot # Exp date PROCEDURES Procedure Date Ordered Result Body Site [facility] VISIT ESTABLISHED PATIENT Jul 23, 2018 URINALYSIS, AUTO, W/O SCOPE Jul 23, 2018 INSTRUCTIONS MEDICATIONS ADMINISTERED No Known Medications [...] [id number] 03/06/2016 Surgical History Hemmroidectomy-Dr. YANG in [place] 2013 Hospitalization History surgeries Hospitalization History [facility] for abdominal/chest pain 07/2015 Hospitalization History Inpt for lumbar surgery x's 10 days 02/2015 Hospitalization History Pt was in [facility] for rehab from surgery, Dx with UTI -03/2016
--- OUTSIDE RECORDS SUMMARY | 2018-07-27 08:25 | XMS REPORT ---
Author Author ANTHONY CASTELLANO [facility] Address [address] [place] [address] Care Team Providers Care Target Man Name Role Phone ANTHONY CASTELLANO Unavailable PROBLEMS Type Condition ICD9-CM Code LTB77-CF Code Onset Dates Condition Status SNOMED Code Problem Hyperlipemia, mixed E78.2 Active 540416272 Problem Non-seasonal allergic rhinitis due to pollen J30.1 Active 92381121 Problem Chronic fatigue R53.82 Active 95032707 Problem Essential hypertension I10 Active 54579170 Problem Esophageal reflux K21.9 Active 570238405 Problem Neuropathy G62.9 Active 930201898 Problem Acquired hypothyroidism E03.9 Active [id number] ALLERGIES No Information ENCOUNTERS Encounter Location Date Diagnosis [facility] [id number] [place] [address] [id number] Jun, [address] [id number] Jun, [address] [id number] May, Essential hypertension I10 [id number] [place] [address] [id number] May, Hypothyroidism, unspecified type E03.9 ; Essential hypertension I10 and Hyperlipemia, mixed E78.2 [facility] [id number] [place] [address] [id number] Apr, [id number] [place] [address] [id number] Apr, Abnormal mammogram of left breast R92.[address] [id number] Mar, Abnormal mammogram of left breast R92.8 [id number] [place] [id number] Mar, [address] [id number][place] [id number] Mar, [facility] [address], [place] [address] Feb, Sore throat and laryngitis J06.0 and Strep throat J02.0 [facility] [address] [facility] [id number] [address] Dec, [facility] [id number] [place] [address] [id number] Dec, [id number] [place] [address] [id number] Dec, Dilated pore of Mk of back L70.8 ; Seborrheic keratoses L82.1 and Non- seasonal allergic rhinitis due to pollen J30.1 [facility] [address] [place] [address] [id number] Dec, [facility] [address]005[address] [id number] Oct, [facility] [address] [place] [address] [id number] Oct, Screening breast examination Z12.31 and History of abnormal mammogram Z87.[address] [place] [address] [id number] Sep, [address] [place] [address] [id number] Sep, [address] [place] [address] [id number] Sep, [address] [place] [address] [id number] Jun, Obesity (BMI 30.0-34.9) E66.9 ; Chronic fatigue R53.82 ; Neuropathy G62.9 ; Essential hypertension I10 and Encounter for immunization Z23 [facility] [address] [place] [address] [id number] Jun, Neuropathy G62.9 and Essential hypertension I10 [id number] [place] [address] [id number] Apr[facility] [id number] [place] [address] [id number] Mar, Neuropathy G62.9 ; Hypothyroidism, unspecified type E03.9 ; Essential hypertension I10 ; Muscle spasm M62.838 and Hyperlipemia, mixed E78.2 [facility] [id number] [place] [address] [id number] Feb, [facility] [address] [id number] January, [facility] [id number] [place] [address] [id number] Dec, [facility] [place] [address] [id number] [place] [address] [phone] Dec, Hypothyroidism, unspecified type E03.9 [facility] [place] [id number] [place] [address] [id number] Nov, [facility] [address] [address] [address] [place] [address] [id number] Nov, Neuropathy G62.9 ; Sinus congestion R09.81 ; Hyperlipemia, mixed E78.2 and Hypothyroidism, unspecified type E03.9 [facility] [place] [address] [id number] [place] [address] [id number] Nov, Neuropathy G62.9 [facility] [id number] [place] [address] [id number] Nov, Sinus congestion R09.81 and Acquired hypothyroidism E03.9 [facility] [id number] [place] [address] [id number] Nov, Acquired hypothyroidism E03.9 [facility] [id number] [place] [address] [id number] Oct, [facility] [address] [id number] [place] [address] [id number] Oct, Sinus congestion R09.81 and Neuropathy G62.9 [facility] [id number] [place] [address] [id number] Oct, Fever, unspecified R50.9 ; Sinus congestion R09.81 and Neuropathy G62.9 [facility] [address] [id number] [place] [address] Oct [address] [place] [address] [id number] Oct, Abnormal mammogram of left breast R92.8 [place] [address] [place] [address] [id number] Sep, Abnormal mammogram R92.8 [address] [place] [address] [id number] Sep, Acquired hypothyroidism E03.9 [place] [address] [place] [address] [id number] Sep, Hypothyroidism, unspecified type E03.9 ; Hyperlipemia, mixed E78.2 and Essential hypertension I10 [address] [place] [address] [id number] Sep, Hypothyroidism, unspecified type E03.9 and Hyperlipemia, mixed E78.2 [address] [place] [address] [id number] Aug, Acute maxillary sinusitis, recurrence not specified J01.00 [address] [place] [address] [id number] Jul, Hyperlipemia, mixed E78.2 [place] [address] [place] [address] [id number] Jul, Acquired hypothyroidism E03.9 ; Hyperlipemia, mixed E78.2 ; Multiple joint pain M25.50 ; Esophageal reflux K21.9 ; Otitis media with effusion, right H65.91 and Essential hypertension I10 [address] [place] [address] [id number] Jul, Gastroesophageal reflux disease, esophagitis presence not specified K21.9 [address] [place] [address] [id number] May, [address] [place] [address] [id number] Apr, Cystitis N30.90 and Well woman exam Z01.419 [address] [place] [address] [id number] Apr, Hematuria R31.9 and Dysuria R30.0 [address] [place] [address] [id number] Apr, [address] [id number] Apr, Urinary tract infection, site not specified N39.0 and Hematuria, unspecified R31.[address] [phone] Dec, [address] [place] [address] [id number] Nov, [address] [id number] Oct, Hyperlipemia, mixed E78.2 [address] [place] [address] [id number] Oct, Gastroesophageal reflux disease, esophagitis presence not specified K21.9 ; Acute serous otitis media of left ear, recurrence not specified H65.02 ; Hyperlipemia, mixed E78.2 and Hypothyroidism, unspecified type E03.9 [address] [place] [address] [id number] Sep, [address] [id number] Sep, Actinic keratoses L57.0 and Stuffy and runny nose J34.89 [address] [place] [address] [id number] Aug, [address] [place] [address] [id number] Aug, Acute cystitis with hematuria N30.[address] [id number] Jul, Reflux esophagitis K21.0 ; Acquired deformities of toe, 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 ; Multiple joint pain M25.50 and Sinus congestion R09.81 [address] [place] [address] [id number] Jul, [address] [id number], [place] [id number] Jun, Acute cystitis without hematuria N30.00 ; Dysuria R30.0 ; Flank pain R10.9 and High risk medication use Z79.899 [facility] [address] [id number][place] [id number] Jun, Urinary tract infection N39.0 [facility] [place] [address] [facility] [id number] [id number] Jun, [facility] [id number], [place] [id number] Jun, Urinary tract infection, site not specified 599.0 and Encounter for immunization Z23 [facility] [place] [id number] [id number] Jun, [facility] [id number], [place] [id number] May, [facility] [id number], [place] [id number] Dec, [facility] [address], [place] [address] Dec, [facility] [address], [place] [address] Dec, [facility] [address] [id number], [place] [id number] Oct, [facility] [address], [place] [address] Oct, [facility] [address] [facility] [id number], [place] [id number] Sep, [facility] [address] [place] [address] Sep, [facility] [address] [id number], [place] [id number] Sep, [facility] [address] [id number], [place] [address] Sep, [facility] [address] [id number] [place] [id number] Aug, [facility] [address] [id number] [place] [id number] Aug, [facility] [place] [facility] [address] [facility] [id number] [place] [address] Aug, [facility] [place] [facility] [address] [facility] [id number], [place] [address] Aug, [facility] [address] [id number] [place] [id number] Aug, [facility] [place] [facility] [address] [facility] [id number] [place] [address] Aug, [facility] [address] [facility] [id number] [place] [id number] Jul, [facility] [address] [facility] [id number], [place] [address] Jul, [facility] [address] [facility] [id number], [place] [id number] Jul, [facility] [place] [facility] [address] [facility] [id number][place] [address] Jul, [facility] [address] [facility] [id number], [place] [id number] Jul, [facility] [place] [facility] [address] [facility] [id number], [place] [address] Jul, [facility] [address] [facility] [id number], [place] [id number] Jul, [facility] [address] [facility] [id number], [place] [address] Jul, [facility] [address] [facility] [id number], [place] [address] Jun, [facility] [place] [facility] [address] [facility] [id number][place] [address] Jun, [facility] [address] [facility] [id number], [place] [id number] Jun, [facility] [place] [facility] [address] [id number], [place] [address] Jun, [facility] [place] [facility] [address] [facility] [id number] [place] [address] 0[address] Jun, [facility] [address] [id number], [place] [id number] Jun, [facility] [address] [id number] [place] [id number] Jun, [facility] [place] [facility] [address] [facility] [id number] [place] [address] Jun, [facility] [address] [facility] [id number] [place] [id number] Jun, [facility] [place] [facility] [address] [facility] [id number], [place] [address] Jun, [facility] [address] [facility] [id number], [place] [id number] May, [facility] [place] [facility] [address] [facility] [id number], [place] [address] 77[address] May, [facility] [address] [facility] [id number], [place] [id number] May, [facility] [place] [address] [facility] [id number][place] [address] 4[address] May, [facility] [place] [facility] [address] [facility] [id number], [place] [address] Apr, [facility] [address] [facility] [id number], [place] [address] Apr, [facility] [address] [facility] [id number], [place] [id number] Apr, [facility] [place] [facility] [address] [facility] [id number], [place] [address] Apr, [facility] [address] [facility] [id number], [place] [id number] Mar, [facility] [place] [facility] [address] [facility] [id number][place] [address] 17[address] Mar, [facility] [address] [id number] [place] [id number] Feb, [facility] [place] [facility] [address] [facility] [id number], [place] [address]- 25[address] Feb, [facility] [address] [id number] [place] [id number] January, [facility] [address] [facility] [id number], [place] [address] 2546 January, [facility] [address] [id number] [place] [id number] January, [facility] [place] [facility] [address] [facility] [id number][place] [address]- [address] January, [facility] [address] [id number] [place] [id number] Dec, [facility] [facility] [address] [facility] [id number], [place] [address] 9[address] Dec, [facility] [address] [facility] [id number], [place] 413568336 Dec, [facility] [place] [facility] [address] [facility] [id number], [place] [address] Dec, [facility] [address] [facility] [id number], [place] [id number] Nov, [facility] [address] [facility] [id number], [place] [address] Nov, [facility] [place] [facility] [address] [facility] [id number], [place] [address] 2[address] Oct, [facility] [place] [facility] [address] [facility] [id number], [place] [address] 12[address] Oct, [facility] [place] [facility] [address] [facility] [id number], [place] [address] Sep, [facility] [address] [id number], [place] 63406[address] Sep, [facility] [address] [id number], [place] 53[address] Sep, [facility] [place] [facility] [address] [id number], [place] [address]- 44[address] Sep, [facility] [address] [id number] [place] [id number] Aug, [facility] [address] [facility] [id number][place] [address]- 7[address] Aug, [facility] [address] [id number], [place] [id number] Jul, [facility] [address] [id number], [place] [address]- 15[address] Jul, [facility] [address] [id number] [place] [id number] Jul, [facility] [place] [address] [id number], [place] [address]- 59[address] Jul, [facility] [address] [facility] [id number], [place] 635884363 Jul, [facility] [address] [facility] [id number], [place] 913878- 7774 Jul, [facility] [address] [facility] [id number], [place] [id number] Jul, [facility] [address] [facility] [id number], [place] [address]- 5586 Jul, [facility] [address] [facility] [id number][place] [address]- 55[address] Jul, [facility] [address] [id number], [place] 911002715 Jun, [facility] [address] [id number] [address]- 69[address] Jun, [facility] [address] [id number], [place] 210079337 Jun, [facility] [address] [id number], [place] 256024200 Jun, [facility] [place] [address] [facility] [id number], [place] [address]- [address] Jun, [facility] [address] [facility] [id number], [place] [address]- 2991 Jun, [facility] [address] [id number], [place] 724221973 Jun, [facility] [address] [facility] [id number][place] [address] 2546 Jun, [facility] [address] [facility] [id number], [place] [address]- 2546 Jun, [facility] [address] [id number] [place] [id number] May, [facility] [address] [id number] [place] [id number] May, [facility] [address] [id number] [place] 878194777 May, [facility] [address] [id number] [place] [id number] May, [facility] [address] [id number] [place] [id number] Apr, [facility] [address] [id number] [place] [id number] Feb, [facility] [address] [id number] [place] [id number] Feb, [facility] [address] [facility] [id number] [address]- 2546 Feb, [facility] [address] [id number] [place] [id number] January, [facility] [address] [facility] [id number], [place] [address]- 2546 January, [facility] [address] [id number] [place] [id number] January, [facility] [address] [id number] [place] [id number] January, [facility] [address] [id number] [place] [id number] January, [facility] [address] [facility] [id number], [place] [address]- 2046 Nov, [facility] [address] [facility] [id number][place] [address]- 2546 Nov, [facility] [address] [id number], [place] 674159186 Oct, [facility] [address] [id number] [place] [id number] Oct, [facility] [address] [id number] [place] 901579846 Oct, [facility] [address] [id number], [place] 144604160 Oct, [facility] [address] [facility] [id number], [place] [address] Oct, [facility] [id number], [place] [address] Oct, [facility] [address] [id number], [place] [id number] Sep, [facility] [address] [facility] [id number], [place] [address] Sep, [facility] [address] [id number][place] [id number] Sep, [facility] [address] [id number][place] [id number] Sep, [facility] [address] [id number][place] [id number] Jun, [facility] [address] [facility] [id number], [place] [address] Jun, [facility] [address] [id number], [place] [id number] May, [facility] [address] [id number], [place] [id number] May, [facility] [address] [id number][place] [id number] Apr, [facility] [address] [id number][place] [id number] Apr, [facility] [address] [id number][place] [id number] Apr, [facility] [id number][place] [id number] Mar, [facility] [id number], [place] [address] Feb, [facility] [id number], [place] [id number] Nov, [facility] [id number] [place] [id number] Nov, [facility] [id number] [place] [address] Nov, [facility] [id number] [place] [address] Nov, [facility] [id number] [place] [address] Nov, [facility] [id number] [id number] Nov, [id number] [place] [id number] Sep, [id number] [id number] Sep, IMMUNIZATIONS No Known Immunizations SOCIAL HISTORY Never Assessed REASON FOR VISIT Medication question PLAN OF CARE VITAL SIGNS MEDICATIONS Unknown Medications RESULTS No Results PROCEDURES No Known procedures INSTRUCTIONS MEDICATIONS ADMINISTERED No Known Medications MEDICAL [...] Surgical History bladder surgery--prolapse x 2 2003, 2006 Surgical History partial hysterectomy 1979 Surgical History carpal tunnel release-bilateral 1997 Surgical History colonoscopy 2013 Surgical History right ankle surgery x 5 (ankle is now fused) 2010 Surgical History decompressive lumbar laminectomy and fusion L4-S1 03/06/2016 Surgical History [facility]ide[facility] Hospitalization History surgeries Hospitalization History [facility] for abdominal/chest pain 07/2015 Hospitalization History Inpt for lumbar surgery x's 10 days 02/2015 Hospitalization History Pt was in [facility] for rehab from surgery, Dx with UTI
--- OUTSIDE RECORDS SUMMARY | 2018-07-27 08:26 | XMS REPORT ---
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 Phone ANTHONY CASTELLANO Unavailable PROBLEMS Type Condition ICD9-CM Code QVL61-DW Code Onset Dates Condition Status SNOMED Code Problem Hyperlipemia, mixed E78.2 Active 698473138 Problem Non-seasonal allergic rhinitis due to pollen J30.1 Active 65912283 Problem Chronic fatigue R53.82 Active 76557127 Problem Essential hypertension I10 Active 16082819 Problem Esophageal reflux K21.9 Active 430926467 Problem Neuropathy G62.9 Active 054683089 Problem Acquired hypothyroidism E03.9 Active 007617421 ALLERGIES Substance Reaction Event Type Date Status Biaxin hives Drug Allergy May, Active ENCOUNTERS Encounter Location Date Diagnosis [facility] [address] [id number] Jun, [address] [id number] May, Essential hypertension I10 [address] [id number] May, Hypothyroidism, unspecified type E03.9 ; Essential hypertension I10 and Hyperlipemia, mixed E78.2 [facility] [id number] [place] [address] [id number] Apr, [address] [id number] Apr, Abnormal mammogram of left breast R92.[address] [id number] Mar, Abnormal mammogram of left breast R92.[address] [id number] Mar, [address] [id number] Mar, [facility] [address], [place] [address] Feb, Sore throat and laryngitis J06.0 and Strep throat J02.0 [facility] [address] [facility] [id number] [address] Dec, [address] [id number] [place] [address] [id number] Dec, [id number] [place] [address] [id number] Dec, Dilated pore of Mk of back L70.8 ; Seborrheic keratoses L82.1 and Non- seasonal allergic rhinitis due to pollen J30.[address] [place] [address] [id number] Dec, [address] [place] [address] [id number] Oct, [id number] [place] [address] [id number] Oct, Screening breast examination Z12.31 and History of abnormal mammogram Z87.898 [id number] [place] [address] [id number] Sep, [id number] [place] [address] [id number] Sep, [id number] [place] [address] [id number] Sep, [id number] [place] [address] [id number] Jun, Obesity (BMI 30.0-34.9) E66.9 ; Chronic fatigue R53.82 ; Neuropathy G62.9 ; Essential hypertension I10 and Encounter for immunization Z23 [address] [id number] [place] [address] [id number] Jun, Neuropathy G62.9 and Essential hypertension I10 [address] [id number] [place] [address] [id number] Apr, [facility] [address]005[address] [address] Mar, Neuropathy G62.9 ; Hypothyroidism, unspecified type E03.9 ; Essential hypertension I10 ; Muscle spasm M62.838 and Hyperlipemia, mixed E78.2 [facility] [address] [place] [address] [id number] Feb, [facility] [id number] [place] [address] [id number] January, [facility] [address] [id number] [place] [address] [id number] Dec, [facility] [address] [id number] [place] [address] [id number] Dec, Hypothyroidism, unspecified type E03.9 [facility] [address] [id number] [place] [address] [id number] Nov, [facility] [id number] [place] [address] [id number] Nov, Neuropathy G62.9 ; Sinus congestion R09.81 ; Hyperlipemia, mixed E78.2 and Hypothyroidism, unspecified type E03.9 [facility] [address] [place] [address] [id number] Nov, Neuropathy G62.9 [facility] [id number] [place] [address] [id number] Nov, Sinus congestion R09.81 and Acquired hypothyroidism E03.9 [facility] [address] [place] [address] [id number] Nov, Acquired hypothyroidism E03.9 [facility] [address] [place] [address] [id number] Oct, [facility] [address] [place] [address] [id number] Oct, Sinus congestion R09.81 and Neuropathy G62.9 [facility] [address] [id number] [place] [address] [id number] Oct, Fever, unspecified R50.9 ; Sinus congestion R09.81 and Neuropathy G62.9 [facility] [place] [id number] [place] [address] 10 Oct [address] [id number] Oct, Abnormal mammogram of left breast R92.8 [address] [id number] [place] [address] [id number] Sep, Abnormal mammogram R92.8 [id number] [place] [address] [id number] Sep, Acquired hypothyroidism E03.9 [address] [id number] [place] [address] [id number] Sep, Hypothyroidism, unspecified type E03.9 ; Hyperlipemia, mixed E78.2 and Essential hypertension I10 [address] [id number] [place] [address] [id number] Sep, Hypothyroidism, unspecified type E03.9 and Hyperlipemia, mixed E78.2 [address] [id number] [place] [address] [id number] Aug, Acute maxillary sinusitis, recurrence not specified J01.00 [id number] [place] [address] [id number] Jul, Hyperlipemia, mixed E78.2 [id number] [place] [address] [id number] Jul, Acquired hypothyroidism E03.9 ; Hyperlipemia, mixed E78.2 ; Multiple joint pain M25.50 ; Esophageal reflux K21.9 ; Otitis media with effusion, right H65.91 and Essential hypertension I10 [address] [place] [address] [id number] Jul, Gastroesophageal reflux disease, esophagitis presence not specified K21.9 [address] [id number] [place] [address] [id number] May, [address] [id number] [place] [address] [id number] Apr, Cystitis N30.90 and Well woman exam Z01.419 [id number] [place] [address] [id number] Apr, Hematuria R31.9 and Dysuria R30.0 [place] [id number] [place] [address] [id number] Apr, [address] [id number] Apr, Urinary tract infection, site not specified N39.0 and Hematuria, unspecified R31.9 [place] [id number] [place] [address] [id number] Dec, [address] [id number] Nov, [place] [id number] [place] [address] [id number] Oct, Hyperlipemia, mixed E78.2 [address] [id number] [place] [address] [id number] Oct, Gastroesophageal reflux disease, esophagitis presence not specified K21.9 ; Acute serous otitis media of left ear, recurrence not specified H65.02 ; Hyperlipemia, mixed E78.2 and Hypothyroidism, unspecified type E03.9 [address] [id number] [place] [address] [id number] Sep, [address] [id number] Sep, Actinic keratoses L57.0 and Stuffy and runny nose J34.89 [address] [id number] [place] [address] [id number] Aug, [address] [address] [place] [address] [id number] Aug, Acute cystitis with hematuria N30.01 [address] [address] [place] [address] [id number] 16 Jul, 2015 Reflux esophagitis K21.0 ; Acquired deformities of toe, 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 ; Multiple joint pain M25.50 and Sinus congestion R09.81 [place] [id number] [place] [address] [id number] Jul, [address] [id number] Jun, Acute cystitis without hematuria N30.00 ; Dysuria R30.0 ; Flank pain R10.9 and High risk medication use Z79.899 [facility] [place] [id number], [place] [id number] Jun, Urinary tract infection N39.0 [facility] [address] [address] [id number] [id number] Jun, [facility] [place] [id number][place] [id number] Jun, Urinary tract infection, site not specified 599.0 and Encounter for immunization Z23 [facility] [place] [id number] [id number] Jun, [facility] [place] [address] [id number][place] [id number] May, [facility] [place] [address], [place] [id number] Dec, [facility] [address], [place] [address] Dec, [facility] [id number] [place] [address] Dec, [facility] [place] [address], [place] [id number] Oct, [facility] [address], [place] [address] Oct, [facility] [place] [id number], [place] [id number] Sep, [facility] [address], [place] [address] Sep, [facility] [address], [place] [id number] Sep, [facility] [address], [place] [address] Sep, [facility] [place] [address] [id number] Aug, [facility] [address] [id number] [place] [id number] Aug, [facility] [place] [facility] [address] [id number] [place] [address] Aug, [facility] [place] [facility] [address] [facility] [id number] [place] [address] 6[address] Aug, [facility] [address] [id number] [place] [id number] Aug, [facility] [place] [facility] [address] [id number] [place] [address] Aug, [facility] [address] [id number] [place] [id number] Jul, [facility] [place] [facility] [address] [facility] [id number] [place] [address] 7[address] Jul, [facility] [address] [facility] [id number][place] [id number] Jul, [facility] [place] [facility] [address] [facility] [id number], [place] [address] Jul, [facility] [address] [facility] [id number], [place] [id number] Jul, [facility] [place] [facility] [address] [facility] [id number], [place] [address] Jul, [facility] [address] [id number], [place] [id number] Jul, [facility] [place] [facility] [address] [facility] [id number], [place] [address] Jul, [facility] [place] [facility] [address] [facility] [id number], [place] [address] 8[address] Jun, [facility] [place] [facility] [address] [facility] [id number], [place] [address] Jun, [facility] [address] [id number], [place] [id number] Jun, [facility] [place] [facility] [address] [facility] [id number], [place] [address] Jun, [facility] [place] [facility] [address] [id number] [place] [address] Jun, [facility] [address] [id number] [place] [id number] Jun, [facility] [address] [id number] [place] [id number] Jun, [facility] [place] [facility] [address] [facility] [id number], [place] [address] Jun, [facility] [address] [id number] [place] 9844523[address] Jun, [facility] [place] [facility] [address] [facility] [id number], [place] [address] Jun, [facility] [address] [facility] [id number] [place] [id number] May, [facility] [place] [facility] [address] [facility] [id number], [place] [address] May, [facility] [address] [facility] [id number] [place] 8396724[address] May, [facility] [place] [facility] [address] [facility] [id number], [place] [address] May, [facility] [place] [facility] [address] [facility] [id number], [place] [address] Apr, [facility] [place] [facility] [address] [facility] [id number], [place] [address] Apr, [facility] [address] [id number] [place] [id number] Apr, [facility] [place] [facility] [address] [facility] [id number], [place] [address] Apr, [facility] [address] [id number] [place] [id number] Mar, [facility] [place] [facility] [address] [facility] [id number], [place] [address] Mar, [facility] [address] [id number] [place] [id number] Feb, [facility] [place] [facility] [address] [id number], [place] [address] Feb, [facility] [address] [id number] [place] [id number] January, [facility] [place] [facility] [address] [facility] [id number], [place] [address] January, [facility] [address] [id number] [place] [id number] January, [facility] [place] [facility] [address] [id number][place] [address] 9[address] January, [facility] [address] [facility] [id number], [place] [id number] Dec, [facility] [place] [facility] [address] [facility] [id number], [place] [address] Dec, [facility] [address] [facility] [id number], [place] 969493549 Dec, [facility] [place] [facility] [address] [facility] [id number], [place] [address] Dec, [facility] [address] [facility] [id number], [place] [id number] Nov, [facility] [place] [facility] [address] [facility] [id number], [place] [address] Nov, [facility] [place] [facility] [address] [facility] [id number], [place] [address] 0[address] Oct, [facility] [place] [facility] [address] [facility] [id number], [place] [address] Oct, [facility] [place] [facility] [address] [facility] [id number], [place] [address] 0[address] Sep, [facility] [address] [id number], [place] [id number] Sep, [facility] [address] [facility] [id number], [place] 947258464 Sep, [facility] [place] [facility] [address] [facility] [id number], [place] [address] Sep, [facility] [address] [facility] [id number] [place] [id number] Aug, [facility] [place] [facility] [address] [facility] [id number], [place] [address] 8[address] Aug, [facility] [address] [facility] [id number] [place] [id number] Jul, [facility] [place] [facility] [address] [facility] [id number] [place] [address] 3[address] Jul, [facility] [address] [facility] [id number], [place] 356079962 Jul, [facility] [place] [facility] [address] [facility] [id number], [place] [address] 0[address] Jul, [facility] [address] [facility] [id number], [place] 601879615 Jul, [facility] [place] [facility] [address] [facility] [id number], [place] [address] 83[address] Jul, [facility] [address] [facility] [id number], [place] [id number] Jul, [facility] [place] [facility] [address] [facility] [id number], [place] [address]- 2000 Jul, [facility] [place] [facility] [address] [facility] [id number], [place] [address]- 69[address] Jul, [facility] [address] [facility] [id number], [place] 647675953 Jun, [facility] [place] [facility] [address] [facility] [id number] [place] [address]- 50[address] Jun, [facility] [address] [id number], [place] 350913177 Jun, [facility] [address] [facility] [id number], [place] [id number] Jun, [facility] [place] [facility] [address] [facility] [id number], [place] [address]- [address] Jun, [facility] [address] [facility] [id number], [place] [address]- 8[address] Jun, [facility] [address] [id number] [place] [id number] Jun, [facility] [address] [facility] [id number], [place] [address] 2546 Jun, [facility] [address] [facility] [id number], [place] [address]- 2546 Jun, [facility] [address] [id number] [place] 000099822 May, [facility] [address] [id number] [place] 004297438 May, [facility] [address] [id number] [place] 084493811 May, [facility] [address] [id number] [place] [id number] May, [facility] [address] [id number] [place] 049815678 Apr, [facility] [address] [id number] [place] 779408551 Feb, [facility] [address] [id number] [place] [id number] Feb, [facility] [address] [facility] [id number], [place] [address]- 2546 Feb, [facility] [address] [id number] [place] [id number] January, [facility] [address] [id number], [place] [address]- [address] January, [facility] [address] [id number] [place] 460420813 January, [facility] [address] [id number] [place] 927800930 January, [facility] [address] [id number] [place] [id number] January, [facility] [address] [facility] [id number], [place] [address]- 2546 Nov, [facility] [address] [facility] [id number], [place] [address]- 7306 Nov, [facility] [address] [id number], [place] 349378451 Oct, [facility] [address] [id number], [place] 178019585 Oct, [facility] [address] [id number], [place] 959004460 Oct, [facility] [address] [id number], [place] 878488181 Oct, [facility] [address] [facility] [id number], [place] [address]- 2546 Oct, [facility] [address] [facility] [id number], [place] [address]- 2546 Oct, [facility] [address] [id number], [place] 272002093 Sep, [facility] [address] [facility] [id number], [place] [address]- 6766 Sep, [facility] [address] [id number], [place] 502851105 Sep, [facility] [address] [id number], [place] 214355530 Sep, [facility] [address] [id number], [place] 009942461 Jun, [facility] [address] [facility] [id number], [place] [address]- 2546 Jun, [facility] [address] [id number], [place] 560619599 May, [facility] [address] [id number], [place] 532460581 May, [facility] [address] [id number], [place] 232555759 Apr, [facility] [address] [id number], [place] 017930439 Apr, [facility] [address] [facility] [id number], [place] 707116834 Apr, [facility] [address] [facility] [id number], [place] 462321518 Mar, [facility] [address] [id number], [place] [address]- 25[address] Feb, [facility] [address] [facility] [id number], [place] 811979668 Nov, [facility] [address] [id number], [place] [id number] Nov, [facility] [address], [place] [address]- 2546 Nov, [facility] [address]100[place], [place] [address]- 2546 Nov, [facility] [address], [place] [address]- 2546 Nov, [facility] [address] [facility] [id number], [place] 412412082 Nov, [facility] [address] [id number], [place] 528226504 Sep, [facility] [address] [id number], [place] [id number] Sep, IMMUNIZATIONS No Known Immunizations SOCIAL HISTORY Never Assessed REASON FOR VISIT here for CHM, has HTN and Hyperlipidemia. alvino Almanza PLAN OF CARE Activity Details Follow Up 4-6 Weeks, prn Reason:Establish Care VITAL SIGNS Height 62 in 2018-05-24 Weight 171 lbs 2018-05-24 Temperature 98.2 degrees Fahrenheit 2018-05-24 Heart Rate 78 bpm 2018-05-24 Respiratory Rate 16 2018-05-24 BMI 31.27 kg/m2 2018-05-24 Blood pressure systolic 130 mmHg 2018-05-24 Blood pressure diastolic 72 mmHg 2018-05-24 MEDICATIONS Medication Instructions Dosage Frequency Start Date End Date Duration Status Fosamax 70 MG Orally once a week, take 30 min before eating and avoid lying down for 30 min. 1 tablet 0 Active Prelief 340 (65-50) MG (CA-P) Orally 8 time(s) a day 2 tablets Active Toviaz 4 MG Orally Once a day 1 tablet 24h 30 day(s) Active Diclofenac Sodium 75 mg Orally twice a day as needed 1 tablet 30 Active Crestor 20MG Orally Once a day 1 tablet 24h Active Baclofen 10MG Orally Once a day 1 tablet with food or milk 24h Active Fluticasone Propionate 50 mcg/act Nasally Once a day 2 spray in each nostril 24h 0 Active Diclofenac Sodium 1 % Transdermal 3 times a day as needed apply 2 grams Mar, 0 days Active Omeprazole 20 mg Orally Once a day 1 capsule 24h 0 days Active Levothyroxine Sodium 75MCG Orally Once a day 1 tablet 24h Active Ventolin HFA 90 MCG/ACT Inhalation every 4 hrs 2 puffs as needed 4h 0 Active MiraLax Active Hydrochlorothiazide 25MG oral daily 1 tablet 24h Active RESULTS No Results PROCEDURES Procedure Date Ordered Result Body Site [facility] VISIT ESTABLISHED PATIENT May 24, 2018 INSTRUCTIONS MEDICATIONS ADMINISTERED No Known Medications [...] [id number] 03/06/2016 Surgical History Hemmroidectomy-Dr. YANG in [place] 2013 Hospitalization History surgeries Hospitalization History [facility] for abdominal/chest pain 07/2015 Hospitalization History Inpt for lumbar surgery x's 10 days 02/2015 Hospitalization History Pt was in [facility] for rehab from surgery, Dx with UTI
--- OUTSIDE RECORDS SUMMARY | 2018-07-27 08:26 | XMS REPORT ---
Author Author ANTHONY CASTELLANO [facility] Address [address] [place] [address] Care Team Providers Care Safety Officer Name Role Phone ANTHONY CASTELLANO Unavailable PROBLEMS Type Condition ICD9-CM Code YQU52-ZA Code Onset Dates Condition Status SNOMED Code Problem Hyperlipemia, mixed E78.2 Active 961185060 Problem Non-seasonal allergic rhinitis due to pollen J30.1 Active 54938295 Problem Chronic fatigue R53.82 Active 06269953 Problem Essential hypertension I10 Active 91066191 Problem Esophageal reflux K21.9 Active 463992318 Problem Neuropathy G62.9 Active 458314723 Problem Acquired hypothyroidism E03.9 Active 250651220 ALLERGIES No Information ENCOUNTERS Encounter Location Date Diagnosis [facility] [id number] [place] [address] [id number] Jun, [address] [id number] Jun, [address] [id number] May, Essential hypertension I10 [id number] [place] [address] [phone] May, Hypothyroidism, unspecified type E03.9 ; Essential hypertension I10 and Hyperlipemia, mixed E78.2 [facility] [id number] [place] [address] [id number] Apr, [id number] [place] [address] [id number] Apr, Abnormal mammogram of left breast R92.[address] [id number] Mar, Abnormal mammogram of left breast R92.8 [id number] [place] [address] [id number] Mar, [address] [id number] [place] [id number] Mar, [facility] [id number], [place] [address] Feb, Sore throat and laryngitis J06.0 and Strep throat J02.0 [facility] [address] [facility] [id number], [place] [address] Dec, [facility] [id number] [place] [address] [id number] Dec, [id number] [place] [address] [id number] Dec, Dilated pore of Mk of back L70.8 ; Seborrheic keratoses L82.1 and Non- seasonal allergic rhinitis due to pollen J30.1 [facility] [id number] [place] [address] [id number] Dec, [facility] [address]00565[address] [id number] Oct, [facility] [id number] [place] [address] [id number] Oct, Screening breast examination Z12.31 and History of abnormal mammogram Z87.[address] [place] [address] [id number] Sep, [address] [place] [address] [id number] Sep, [address] [place] [address] [id number] Sep, [address] [place] [address] [id number] Jun, Obesity (BMI 30.0-34.9) E66.9 ; Chronic fatigue R53.82 ; Neuropathy G62.9 ; Essential hypertension I10 and Encounter for immunization Z23 [facility] [address] [place] [address] [id number] Jun, Neuropathy G62.9 and Essential hypertension I10 [id number] [place] [address] [id number] Apr, [facility] [id number] [place] [address] [id number] Mar, Neuropathy G62.9 ; Hypothyroidism, unspecified type E03.9 ; Essential hypertension I10 ; Muscle spasm M62.838 and Hyperlipemia, mixed E78.2 [facility] [id number] [place] [address] [id number] Feb, [facility] [address] [id number] January, [facility] [id number] [place] [address] [id number] Dec, [facility] [place] [id number] [place] [address] [id number] Dec, Hypothyroidism, unspecified type E03.9 [facility] [place] [id number] [place] [address] [id number] Nov, [facility] [place] [id number] [place] [address] [id number] Nov, Neuropathy G62.9 ; Sinus congestion R09.81 ; Hyperlipemia, mixed E78.2 and Hypothyroidism, unspecified type E03.9 [facility] [place] [id number] [place] [address] [id number] Nov, Neuropathy G62.9 [facility] [place] [id number] [place] [address] [id number] Nov, Sinus congestion R09.81 and Acquired hypothyroidism E03.9 [facility] [place] [id number] [place] [address] [id number] Nov, Acquired hypothyroidism E03.9 [facility] [place] [id number] [place] [address] [id number] Oct, [facility] [place] [id number] [place] [address] [id number] Oct, Sinus congestion R09.81 and Neuropathy G62.9 [facility] [id number] [place] [address] [id number] Oct, Fever, unspecified R50.9 ; Sinus congestion R09.81 and Neuropathy G62.9 [facility] [address] [id number] [place] [address] Oct [id number] [place] [address] [id number] Oct, Abnormal mammogram of left breast R92.8 [place] [id number] [place] [address] [id number] Sep, Abnormal mammogram R92.8 [id number] [place] [address] [id number] Sep, Acquired hypothyroidism E03.9 [place] [id number] [place] [address] [id number] Sep, Hypothyroidism, unspecified type E03.9 ; Hyperlipemia, mixed E78.2 and Essential hypertension I10 [id number] [place] [address] [id number] Sep, Hypothyroidism, unspecified type E03.9 and Hyperlipemia, mixed E78.2 [id number] [place] [address] [id number] Aug, Acute maxillary sinusitis, recurrence not specified J01.00 [id number] [place] [address] [id number] Jul, Hyperlipemia, mixed E78.2 [place] [id number] [place] [address] [id number] Jul, Acquired hypothyroidism E03.9 ; Hyperlipemia, mixed E78.2 ; Multiple joint pain M25.50 ; Esophageal reflux K21.9 ; Otitis media with effusion, right H65.91 and Essential hypertension I10 [address] [place] [address] [id number] Jul, Gastroesophageal reflux disease, esophagitis presence not specified K21.9 [id number] [place] [address] [id number] May, [id number] [place] [address] [id number] Apr, Cystitis N30.90 and Well woman exam Z01.419 [id number] [place] [address] [id number] Apr, Hematuria R31.9 and Dysuria R30.0 [id number] [place] [address] [id number] Apr, [address] [id number] Apr, Urinary tract infection, site not specified N39.0 and Hematuria, unspecified R31.[address] [id number] Dec, [id number] [place] [address] [id number] Nov, [address] [id number] Oct, Hyperlipemia, mixed E78.2 [id number] [place] [address] [id number] Oct, Gastroesophageal reflux disease, esophagitis presence not specified K21.9 ; Acute serous otitis media of left ear, recurrence not specified H65.02 ; Hyperlipemia, mixed E78.2 and Hypothyroidism, unspecified type E03.9 [id number] [place] [address] [id number] Sep, [address] [id number] Sep, Actinic keratoses L57.0 and Stuffy and runny nose J34.89 [id number] [place] [address] [id number] Aug, [id number] [place] [address] [id number] Aug, Acute cystitis with hematuria N30.[address] [id number] Jul, Reflux esophagitis K21.0 ; Acquired deformities of toe, 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 ; Multiple joint pain M25.50 and Sinus congestion R09.81 [id number] [place] [address] [id number] Jul, [address] [id number] [place] [id number] Jun, Acute cystitis without hematuria N30.00 ; Dysuria R30.0 ; Flank pain R10.9 and High risk medication use Z79.899 [facility] [address] [id number] [place] [id number] Jun, Urinary tract infection N39.0 [facility] [place] [address] [facility] [id number][place] [id number] Jun, [facility] [id number] [place] [id number] Jun, Urinary tract infection, site not specified 599.0 and Encounter for immunization Z23 [id number] [id number] Jun, [facility] [id number] [place] [id number] May, [facility] [id number] [place] [id number] Dec, [facility] [address], [place] [address] Dec, [facility] [address], [place] [address] Dec, [facility] [address] [id number] [place] [id number] Oct, [facility] [address], [place] [address] Oct, [facility] [address] [facility] [id number] [place] [id number] Sep, [facility] [address] [place] [address] Sep, [facility] [address] [id number] [place] [id number] Sep, [facility] [address] [id number], [place] [address] 0[address] Sep, [facility] [address] [id number] [place] [id number] Aug, [facility] [address] [id number] [place] [id number] Aug, [facility] [place] [facility] [address] [facility] [id number] [place] [address] Aug, [facility] [place] [facility] [address] [facility] [id number], [place] [address] 3[address] Aug, [facility] [address] [id number] [place] [id number] Aug, [facility] [place] [facility] [address] [facility] [id number] [place] [address]- 70[address] Aug, [facility] [address] [facility] [id number] [place] [id number] Jul, [facility] [place] [facility] [address] [facility] [id number], [place] [address] Jul, [facility] [address] [facility] [id number] [place] [id number] Jul, [facility] [place] [facility] [address] [facility] [id number], [place] [address] Jul, [facility] [address] [facility] [id number] [place] [id number] Jul, [facility] [place] [facility] [address] [facility] [id number], [place] [address] 65[address] Jul, [facility] [address] [facility] [id number] [place] [id number] Jul, [facility] [place] [facility] [address] [facility] [id number], [place] [address] Jul, [facility] [place] [facility] [address] [facility] [id number], [place] [address] Jun, [facility] [place] [facility] [address] [facility] [id number], [place] [address] 5[address] Jun, [facility] [address] [facility] [id number] [place] [id number] Jun, [facility] [place] [facility] [address] [id number], [place] [address] 98[address] Jun, [facility] [place] [facility] [address] [facility] [id number] [place] [address] 6673 Jun, [facility] [address] [id number] [place] [address] Jun, [facility] [address] [id number] [place] [id number] Jun, [facility] [place] [facility] [address] [facility] [id number] [place] [address]- 0119 Jun, [facility] [address] [facility] [id number] [place] [id number] Jun, [facility] [place] [facility] [address] [facility] [id number], [place] [address] 9[address] Jun, [facility] [address] [facility] [id number] [place] [id number] May, [facility] [place] [facility] [address] [facility] [id number], [place] [address] 6843 May, [facility] [address] [facility] [id number] [place] [id number] May, [facility] [place] [facility] [address] [facility] [id number], [place] [address] May, [facility] [place] [facility] [address] [facility] [id number], [place] [address]- 65[address] Apr, [facility] [place] [facility] [address] [facility] [id number], [place] [address]- 1191 Apr, [facility] [address] [facility] [id number] [place] 1233[address]771 Apr, [facility] [place] [facility] [address] [facility] [id number], [place] [address]- 2713 Apr, [facility] [address] [facility] [id number] [place] [id number] Mar, [facility] [place] [facility] [address] [facility] [id number], [place] [address]- 76[address] Mar, [facility] [address] [id number] [place] [id number] Feb, [facility] [place] [facility] [address] [facility] [id number], [place] [address]- 2546 Feb, [facility] [address] [id number] [place] [id number] January, [facility] [place] [facility] [address] [facility] [id number], [place] [address] 2546 January, [facility] [address] [id number] [place] [address]37[address] January, [facility] [place] [facility] [address] [facility] [id number], [place] [address]- 2546 January, [facility] [address] [id number] [place] [id number] Dec, [facility] [place] [facility] [address] [facility] [id number], [place] [address]- 8336 Dec, [facility] [address] [facility] [id number] [place] [id number] Dec, [facility] [place] [facility] [address] [facility] [id number], [place] [address]- 5[address] Dec, [facility] [address] [facility] [id number] [place] [id number] Nov, [facility] [place] [facility] [address] [facility] [id number], [place] [address]- 9216 Nov, [facility] [place] [facility] [address] [facility] [id number], [place] [address]- 4266 Oct, [facility] [place] [facility] [address] [facility] [id number], [place] [address]- 1386 Oct, [facility] [facility] [address] [facility] [id number], [place] [address]- 9236 Sep, [facility] [address] [id number] [place] [id number] Sep, [facility] [address] [id number] [place] 73[address]3381 Sep, [facility] [facility] [address] [id number], [place] [address] 3[address] Sep, [facility] [address] [id number] [place] [id number] Aug, [facility] [place] [facility] [address] [facility] [id number], [place] [address] 8[address] Aug, [facility] [address] [id number] [place] 414335296 Jul, [facility] [place] [facility] [address] [id number], [place] [address]- 2694 Jul, [facility] [address] [id number] [place] [id number] Jul, [facility] [place] [facility] [address] [id number], [place] [address]- 6040 Jul, [facility] [address] [facility] [id number] [place] 980058075 Jul, [facility] [place] [facility] [address] [facility] [id number][place]- 3294 Jul, [facility] [address] [facility] [id number] [place] [id number] Jul, [facility] [place] [facility] [address] [facility] [id number], [place] [address]- 6241 Jul, [facility] [place] [facility] [address] [facility] [id number], [place] [address]- 6384 Jul, [facility] [address] [id number] [place] 695222165 Jun, [facility] [place] [facility] [address] [id number], [place] [address] 1980 Jun, [facility] [address] [id number] [place] 324090079 Jun, [facility] [address] [id number] [place] 287475579 Jun, [facility] [place] [facility] [address] [facility] [id number], [place] [address]- 6336 Jun, [facility] [address] [facility] [id number], [place] [address]- 6[address] Jun, [facility] [address] [id number] [place] 643189532 Jun, [facility] [address] [facility] [id number], [place] [address] 2546 Jun, [facility] [address] [facility] [id number], [place] [address]- 2546 Jun, [facility] [address] [id number] [place] [address] May, [facility] [address] [id number] [place] [id number] May, [facility] [address] [id number] [place] 522913279 May, [facility] [address] [id number] [place] 349573886 May, [facility] [address] [id number] [place] 640307460 Apr, [facility] [address] [id number] [place] 188760218 Feb, [facility] [address] [id number] [place] 080578709 Feb, [facility] [address] [facility] [id number], [place] [address]- 2546 Feb, [facility] [address] [id number] [place] [address] January, [facility] [address] [facility] [id number], [place] [address]- 2546 January, [facility] [address] [id number] [place] [id number] January, [facility] [address] [id number] [place] 8601840[address] January, [facility] [address] [id number] [place] 147337455 January, [facility] [address] [facility] [id number], [place] [address]- 4616 Nov, [facility] [address] [facility] [id number], [place] [address]- 2546 Nov, [facility] [address] [id number] [place] [id number] Oct, [facility] [address] [id number] [place] 1054[address] Oct, [facility] [address] [id number] [place] [id number] Oct, [facility] [address] [id number] [place] 977073771 Oct, [facility] [address] [facility] [id number], [place] [address]- 2546 Oct, [facility] [address]65[address], [place] [address]- 2546 Oct, [facility] [address] [id number] [place] 737247486 Sep, [facility] [address] [facility] [id number], [place] [address]- 2546 Sep, [facility] [address] [id number] [place] 199146548 Sep, [facility] [address] [id number] [place] 096999666 Sep, [facility] [address] [id number] [place] 116353581 Jun, [facility] [address] [facility] [id number], [place] [address]- 2546 Jun, [facility] [address] [id number] [place] 6[address] May, [facility] [address] [id number] [place] 160228811 May, [facility] [address] [id number] [place] 736074[address] Apr, [facility] [address] [id number] [place] 254444985 Apr, [facility] [address] [id number] [place] [address] Apr, [facility] [id number] [place] [address]69[address]658 Mar, [facility] [address]00565100[place], [place] [address]- 2546 Feb, [facility] [id number] [place] [id number] Nov, [facility] [id number] [place] 520[address] Nov, [facility] [id number] [place] [address]- 2546 Nov, [facility] [id number] [place] [address]- 2546 Nov, [facility] [address] [id number] [phone] Nov, [facility] [id number] [id number] Nov, [facility] [id number] [place] [id number] Sep, [facility] [id number] [place] [id number] Sep, IMMUNIZATIONS No Known Immunizations SOCIAL HISTORY Never Assessed REASON FOR VISIT med refill PLAN OF CARE VITAL SIGNS MEDICATIONS Medication Instructions Dosage Frequency Start Date End Date Duration Status Baclofen 10MG Orally Once a day 1 tablet with food or milk 24h 0 days Active Hydrochlorothiazide 25MG oral daily 1 tablet 24h 0 days Active RESULTS No Results PROCEDURES No Known procedures [...] [id number] 03/06/2016 Surgical History Hemmroidectomy-Dr. YANG in [place] 2013 Hospitalization History surgeries Hospitalization History [facility] for abdominal/chest pain 07/2015 Hospitalization History Inpt for lumbar surgery x's 10 days 02/2015 Hospitalization History Pt was in [facility] for rehab from surgery, Dx with UTI
--- OUTSIDE RECORDS SUMMARY | 2018-07-27 08:27 | XMS REPORT ---
Author Author ROOPA FOSTER Organization [facility] Address [address] [place] [address] Care Team Providers Care Analytics Consultant Name Role Phone ROOPA FOSTER Unavailable PROBLEMS Type Condition ICD9-CM Code TZY62-TL Code Onset Dates Condition Status SNOMED Code Problem Hyperlipemia, mixed E78.2 Active 895933933 Problem Non-seasonal allergic rhinitis due to pollen J30.1 Active 76943642 Problem Chronic fatigue R53.82 Active 74648978 Problem Essential hypertension I10 Active 52044890 Problem Esophageal reflux K21.9 Active 196419663 Problem Neuropathy G62.9 Active 327044639 Problem Acquired hypothyroidism E03.9 Active 496035770 ALLERGIES No Information ENCOUNTERS Encounter Location Date Diagnosis [facility] [id number] [place] [address] [id number] Jun, [place] [address] [id number] May, Hypothyroidism, unspecified type E03.9 ; Essential hypertension I10 and Hyperlipemia, mixed E78.2 [facility] [id number] [place] [address] [id number] Apr, [facility] [address] [id number] Apr, Abnormal mammogram of left breast R92.8 [facility] [id number] [place] [address] [id number] Mar, Abnormal mammogram of left breast R92.8 [facility] [id number] [place] [address] [id number] Mar, [facility] [id number] [place] [address] [id number] Mar, [facility] [id number] [place] [address] Feb, Sore throat and laryngitis J06.0 and Strep throat J02.0 [facility] [address]005[address], [place] [address] Dec, [facility] [id number] [place] [id number] Dec, [place] [id number] [place] [address] [id number] Dec, Dilated pore of Mk of back L70.8 ; Seborrheic keratoses L82.1 and Non- seasonal allergic rhinitis due to pollen J30.1 [facility] [address] [id number] Dec, [address] [id number] Oct, [address] [place] [address] [id number] Oct, Screening breast examination Z12.31 and History of abnormal mammogram Z87.898 [facility] [address] [place] [address] [id number] Sep, [address] [place] [address] [id number] Sep, [address] [place] [address] [id number] Sep, [place] [id number] [place] [address] [id number] Jun, Obesity (BMI 30.0-34.9) E66.9 ; Chronic fatigue R53.82 ; Neuropathy G62.9 ; Essential hypertension I10 and Encounter for immunization Z23 [address] [place] [address] [id number] Jun, Neuropathy G62.9 and Essential hypertension I10 [address] [place] [address] [id number] Apr, [address] [place] [address] [id number] Mar, Neuropathy G62.9 ; Hypothyroidism, unspecified type E03.9 ; Essential hypertension I10 ; Muscle spasm M62.838 and Hyperlipemia, mixed E78.2 [facility] [place] [id number] [place] [address] [id number] Feb, [facility] [address] [id number] January, [facility] [place] [id number] [place] [address] [id number] Dec, [facility] [address] [id number] Dec, Hypothyroidism, unspecified type E03.9 [facility] [place] [id number] [place] [address] [id number] Nov, [facility] [address] [id number] Nov, Neuropathy G62.9 ; Sinus congestion R09.81 ; Hyperlipemia, mixed E78.2 and Hypothyroidism, unspecified type E03.9 [facility] [place] [id number] [place] [address] [id number] Nov, Neuropathy G62.9 [facility] [place] [id number] [place] [address] [id number] Nov, Sinus congestion R09.81 and Acquired hypothyroidism E03.9 [facility] [place] [id number] [place] [address] [id number] Nov, Acquired hypothyroidism E03.9 [facility] [place] [id number] [place] [address] [id number] Oct, [facility] [place] [id number] [place] [address] [id number] Oct, Sinus congestion R09.81 and Neuropathy G62.9 [facility] [place] [id number] [place] [address] [id number] Oct, Fever, unspecified R50.9 ; Sinus congestion R09.81 and Neuropathy G62.9 [facility] [place] [id number] [place] [address] Oct [facility] [place] [id number] [place] [address] [id number] Oct, Abnormal mammogram of left breast R92.8 [place] [id number] [place] [address] [id number] Sep, Abnormal mammogram R92.8 [place] [address] [id number] Sep, Acquired hypothyroidism E03.[address] [id number] Sep, Hypothyroidism, unspecified type E03.9 ; Hyperlipemia, mixed E78.2 and Essential hypertension I10 [address] [id number] Sep, Hypothyroidism, unspecified type E03.9 and Hyperlipemia, mixed E78.[address] [id number] Aug, Acute maxillary sinusitis, recurrence not specified J01.[address] [id number] Jul, Hyperlipemia, mixed E78.[address] [id number] Jul, Acquired hypothyroidism E03.9 ; Hyperlipemia, mixed E78.2 ; Multiple joint pain M25.50 ; Esophageal reflux K21.9 ; Otitis media with effusion, right H65.91 and Essential hypertension I10 [place] [id number] [place] [address] [id number] Jul, Gastroesophageal reflux disease, esophagitis presence not specified K21.9 [place] [id number] [place] [address] [id number] May, [place] [id number] [place] [address] [id number] Apr, Cystitis N30.90 and Well woman exam Z01.419 [place] [id number] [place] [address] [id number] Apr, Hematuria R31.9 and Dysuria R30.[address] [id number] Apr, [address] [place] [address] [id number] Apr, Urinary tract infection, site not specified N39.0 and Hematuria, unspecified R31.9 [place] [id number] [place] [address] [id number] Dec, [place] [id number] [place] [address] [id number] Nov, [address] [id number] Oct, Hyperlipemia, mixed E78.2 [place] [id number] [place] [address] [id number] Oct, Gastroesophageal reflux disease, esophagitis presence not specified K21.9 ; Acute serous otitis media of left ear, recurrence not specified H65.02 ; Hyperlipemia, mixed E78.2 and Hypothyroidism, unspecified type E03.9 [place] [id number] [place] [address] [id number] Sep, [place] [id number] [place] [address] [id number] Sep, Actinic keratoses L57.0 and Stuffy and runny nose J34.89 [place] [id number] [place] [address] [id number] Aug, [place] [id number] [place] [address] [id number] Aug, Acute cystitis with hematuria N30.01 [place] [id number] [place] [address] [id number] 16 Jul, 2015 Reflux esophagitis K21.0 ; Acquired deformities of toe, 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 ; Multiple joint pain M25.50 and Sinus congestion R09.81 [address] [place] [address] [id number] Jul, [address] [place] [address] [id number] Jun, Acute cystitis without hematuria N30.00 ; Dysuria R30.0 ; Flank pain R10.9 and High risk medication use Z79.899 [facility] [address] [facility] [id number] [id number] Jun, Urinary tract infection N39.0 [facility] [address] [facility] [address] [id number] [id number] Jun, [facility] [address] [id number] [id number] Jun, Urinary tract infection, site not specified 599.0 and Encounter for [facility] [place] [address] [facility] [id number][place] [id number] Jun, [facility] [id number] [place]ACE[place] [id number] May, [facility] [place] [id number] [place] [id number] Dec, [facility] [address], [place] [address] Dec, [facility] [address]65100[place], [place] [address] 8[address] Dec, [facility] [id number] [place] [id number] Oct, [facility] [address], [place] [address] Oct, [facility] [address] [facility] [id number] [place]ACE[place] [id number] Sep, [facility] [address]100[place], [place] [address] 3[address] Sep, [facility] [address] [facility] [id number] [place]ACE[place] [id number] Sep, [facility] [address], [place] [address] 2546 Sep, [facility] [place] [address] [facility] [id number] [place]ACE[place] [id number] Aug, [facility] [place] [address] [id number] [place]ACE[place] 399678987 Aug, [facility] [place] [facility] [address] [id number] [place] [address] Aug, [facility] [place] [facility] [address] [id number] [place] [address] 4[address] Aug, [facility] [address] [id number] [place] [id number] Aug, [facility] [place] [facility] [address] [id number] [place] [address] 29[address] Aug, [facility] [address] [id number] [place]ACE[place] [id number] Jul, [facility] [place] [facility] [address] [id number] [place] [address] 2896 Jul, [facility] [address] [facility] [id number] [place]ACE[place] [id number] Jul, [facility] [place] [facility] [address] [facility] [id number], [place] [address] Jul, [facility] [address] [facility] [id number] [place]ACE[place] [id number] Jul, [facility] [place] [facility] [address] [facility] [id number], [place] [address] 9[address] Jul, [facility] [address] [facility] [id number] [place]ACE[place] [id number] Jul, [facility] [place] [facility] [address] [facility] [id number], [place] [address]- 4898 Jul, [facility] [place] [facility] [address] [facility] [id number], [place] [address]- 9401 Jun, [facility] [place] [facility] [address] [id number], [place] [address]- 9264 Jun, [facility] [address] [facility] [id number] [place]ACE[place] [id number] Jun, [facility] [place] [facility] [address] [facility] [id number], [place]- [address] Jun, [facility] [place] [facility] [address] [facility] [id number], [place] [address]- 7751 Jun, [facility] [address] [id number] [place] [id number] Jun, [facility] [address] [id number] [place] [id number] Jun, [facility] [place] [facility] [address] [facility] [id number] [place] [address]- 1626 Jun, [facility] [address] [id number] [place] [id number] Jun, [facility] [place] [facility] [address] [id number] [place] [address]- 5652 Jun, [facility] [address] [id number] [place] [id number] May, [facility] [place] [facility] [address] [facility] [id number], [place] [address]- 3[address] May, [facility] [address] [facility] [id number] PLACE[place] [id number] May, [facility] [place] [facility] [address] [facility] [id number] [place] [address]- 2084 May, [facility] [place] [facility] [address] [facility] [id number], [place] [address]- 2679 Apr, [facility] [place] [facility] [address] [facility] [id number], [place] [address]- 5[address] Apr, [facility] [address] [facility] [id number] [place]ACE[place] [id number] Apr, [facility] [place] [facility] [address] [facility] [id number], [place] [address]- 8513 Apr, [facility] [address] [facility] [id number] [place] [id number] Mar, [facility] [place] [facility] [address] [facility] [id number] [place] [address]- 4895 Mar, [facility] [address] [id number] [place] [id number] Feb, [facility] [place] [facility] [address] [facility] [id number], [place] [address]- 5106 Feb, [facility] [address] [facility] [id number] [place] [id number] January, [facility] [place] [facility] [address] [facility] [id number], [place] [address]- 5676 January, [facility] [address] [facility] [id number] [place] [id number] January, [facility] [place] [facility] [address] [facility] [id number], [place] [address]- 6776 January, [facility] [address] [facility] [id number] [place] [id number] Dec, [facility] [place] [facility] [address] [facility] [id number], [place] [address]- 3556 Dec, [facility] [address] [facility] [id number] [place] [id number] Dec, [facility] [place] [facility] [address] [facility] [id number], [place] [address]- 0576 Dec, [facility] [address] [facility] [id number] [place]ACE[place] [id number] Nov, [facility] [place] [facility] [address], [place] [address]- [address] Nov, [facility] [place] [facility] [address] [facility] [id number], [place] [address]- 6070 Oct, [facility] [place] [facility] [address] [facility] [id number], [place] [address]- 5976 Oct, [facility] [place] [facility] [address] [facility] [id number], [place] [address]- 1371 Sep, [facility] [address] [facility] [id number] [place]ACE[place] 046225664 Sep, [facility] [address] [facility] [id number] [place] [id number] Sep, [facility] [place] [facility] [address] [facility] [id number], [place] [address]- [address] Sep, [facility] [address] [id number] [place] [id number] Aug, [facility] [place] [facility] [address] [facility] [id number], [place] [address]- 0226 Aug, [facility] [address] [facility] [id number] [place]ACE[place] 426869328 Jul, [facility] [place] [facility] [address] [facility] [id number], [place] [address]- 3506 Jul, [facility] [address] [facility] [id number] [place]ACE[place] [id number] Jul, [facility] [place] [facility] [address] [facility] [id number], [place] [address]- 3020 Jul, [facility] [address] [facility] [id number] [place]ACE[place] [id number] Jul, [facility] [place] [facility] [address], [place] [address]- 3181 Jul, [facility] [address] [facility] [id number] [place]ACE[place] 512638151 Jul, [facility] [place] [facility] [address] [facility] [id number], [place] [address]- 7541 Jul, [facility] [place] [facility] [address] [facility] [id number], [place] [address]- 7204 Jul, [facility] [address] [facility] [id number] [place]ACE[place] 615373500 Jun, [facility] [place] [facility] [address] [facility] [id number], [place] [address]- 0753 Jun, [facility] [address] [facility] [id number] [place]ACE[place] 054058133 Jun, [facility] [address] [facility] [id number] [place]ACE[place] 087354474 Jun, [facility] [place] [facility] [address] [facility] [id number], [place] [address]- 4866 Jun, [facility] [place] [facility] [address] [facility] [id number], [place] [address]- 1452 Jun, [facility] [address] [id number] [place] [id number] Jun, [facility] [address] [facility] [id number], [place] [address]- 2546 Jun, [facility] [address] [facility] [id number], [place] [address]- 2546 Jun, [facility] [address] [id number] [place] [id number] May, [facility] [address] [id number] [place] [id number] May, [facility] [address] [id number] [place] [id number] May, [facility] [address] [id number] [place] [id number] May, [facility] [address] [id number] [place] 028919279 Apr, [facility] [address] [id number] [place] [id number] Feb, [facility] [address] [id number] [place] [id number] Feb, [facility] [address], [place] [address]- 2546 Feb, [facility] [address] [id number] [place] [id number] January, [facility] [address]00565100[place], [place] [address]- 2546 January, [facility] [address] [id number] [place]ACE[place] 740374241 January, [facility] [address] [id number] [place] [id number] January, [facility] [address] [facility] [id number] [place]ACE[place] 477490782 January, [facility] [address], [place] [address]- 5848 Nov, [facility] [address] [id number], [place] [address]- 2546 Nov, [facility] [address] [id number] [place] [id number] Oct, [facility] [address] [id number] [place] [id number] Oct, [facility] [address] [id number] [place] [id number] Oct, [facility] [address] [id number] [place] [id number] Oct, [facility] [address] [facility] [id number], [place] [address]- 2546 Oct, [facility] [address] [facility] [id number], [place] [address]- 2546 Oct, [facility] [address] [id number] [place]ACE[place] 918525511 Sep, [facility] [address] [facility] [id number], [place] [address]- 5871 Sep, [facility] [address] [id number] [place] [id number] Sep, [facility] [address] [id number] [place]ACE[place] 905576063 Sep, [facility] [address] [id number] [place]ACE[place] 396075301 Jun, [facility] [address] [facility] [id number], [place] [address]- 2546 Jun, [facility] [address] [id number] PLACE[place] 772097784 May, [facility] [address] [id number] [place] [id number] May, [facility] [address] [id number] [place] 043013651 Apr, [facility] [address] [id number] [place] [id number] Apr, [facility] [address] [id number] [place]ACE[place] 217878922 Apr, [facility] [address] [facility] [id number] [place]ACE[place] 187031281 Mar, [facility] [address]00565100[place], [place] [address]- 2546 Feb, [facility] [address] [id number] [place]ACE[place] 335947843 Nov, [facility] [id number] [place]ACE[place] [id number] Nov, [facility] [address]00565100[place], [place] [address]- 2546 Nov, [facility] [address]00565100[place], [place] [address]- 2546 Nov, [facility] [address]00565100[place], [place] [address]- 2546 Nov, [facility] [address] 131647649 Nov, [facility] [address] 121490281 Sep, [facility] [address] 569882952 Sep, IMMUNIZATIONS No Known Immunizations SOCIAL HISTORY Never Assessed REASON FOR VISIT change mammogram order per [facility] OF [facility] VITAL SIGNS MEDICATIONS Unknown Medications RESULTS Name Result Date Reference Range Mammogram Dx, Left 2018-04-22 PROCEDURES No Known procedures INSTRUCTIONS MEDICATIONS ADMINISTERED [...] L4-S1 03/06/2016 Surgical History Hemmroidectomy-Dr. YANG in [place] 2013 Hospitalization History surgeries Hospitalization History [facility] for abdominal/chest pain 07/2015 Hospitalization History Inpt for lumbar surgery x's 10 days 02/2015 Hospitalization History Pt was in [facility] for rehab from surgery, Dx with UTI
--- OUTSIDE RECORDS SUMMARY | 2018-07-27 08:27 | XMS REPORT ---
Author Author ROOPA FOSTER Organization [facility] Address [address] [place] [address] Care Team Providers Care Optical Instrument Specialist Name Role Phone ROOPA FOSTER Unavailable PROBLEMS Type Condition ICD9-CM Code RTD88-NI Code Onset Dates Condition Status SNOMED Code Problem Hyperlipemia, mixed E78.2 Active 252668400 Problem Non-seasonal allergic rhinitis due to pollen J30.1 Active 58167394 Problem Chronic fatigue R53.82 Active 28933078 Problem Essential hypertension I10 Active 53951924 Problem Esophageal reflux K21.9 Active 711569136 Problem Neuropathy G62.9 Active 442509033 Problem Acquired hypothyroidism E03.9 Active 680450636 ALLERGIES No Information ENCOUNTERS Encounter Location Date Diagnosis [facility] [address] [id number] Jun, [address] [id number] May, Essential hypertension I10 [address] [id number] May, Hypothyroidism, unspecified type E03.9 ; Essential hypertension I10 and Hyperlipemia, mixed E78.2 [facility] [id number] [place] [address] [id number] Apr, [address] [id number] Apr, Abnormal mammogram of left breast R92.[address] [id number] Mar, Abnormal mammogram of left breast R92.[address] [id number] Mar, [address] [id number] Mar, [facility] [address]005[address], [place] [address] Feb, Sore throat and laryngitis J06.0 and Strep throat J02.0 [facility] [address] [facility] [id number] [address]46 Dec, [place] [id number] [place] [address] [id number] Dec, [place] [id number] [place] [address] [id number] Dec, Dilated pore of Mk of back L70.8 ; Seborrheic keratoses L82.1 and Non- seasonal allergic rhinitis due to pollen J30.[address] [place] [address] [id number] Dec, [address] [place] [address] [id number] Oct, [place] [id number] [place] [address] [id number] Oct, Screening breast examination Z12.31 and History of abnormal mammogram Z87.898 [address] [id number] [place] [address] [id number] Sep, [place] [id number] [place] [address] [id number] Sep, [address] [id number] [place] [address] [id number] Sep, [address] [id number] [place] [address] [id number] Jun, Obesity (BMI 30.0-34.9) E66.9 ; Chronic fatigue R53.82 ; Neuropathy G62.9 ; Essential hypertension I10 and Encounter for immunization Z23 [place] [id number] [place] [address] [id number] Jun, Neuropathy G62.9 and Essential hypertension I10 [place] [id number] [place] [address] [id number] Apr, [facility] [address]005[address] [id number] Mar, Neuropathy G62.9 ; Hypothyroidism, unspecified type E03.9 ; Essential hypertension I10 ; Muscle spasm M62.838 and Hyperlipemia, mixed E78.2 [facility] [address] [place] [address] [id number] Feb, [facility] [place] [id number] [place] [address] [id number] January, [facility] [place] [id number] [place] [address] [id number] Dec, [facility] [place] [id number] [place] [address] [id number] Dec, Hypothyroidism, unspecified type E03.9 [facility] [place] [id number] [place] [address] [id number] Nov, [facility] [place] [id number] [place] [address] [id number] Nov, Neuropathy G62.9 ; Sinus congestion R09.81 ; Hyperlipemia, mixed E78.2 and Hypothyroidism, unspecified type E03.9 [facility] [address] [place] [address] [id number] Nov, Neuropathy G62.9 [facility] [place] [id number] [place] [address] [id number] Nov, Sinus congestion R09.81 and Acquired hypothyroidism E03.9 [facility] [address] [place] [address] [id number] Nov, Acquired hypothyroidism E03.9 [facility] [address] [place] [address] [id number] Oct, [facility] [address] [place] [address] [id number] Oct, Sinus congestion R09.81 and Neuropathy G62.9 [facility] [place] [id number] [place] [address] [id number] Oct, Fever, unspecified R50.9 ; Sinus congestion R09.81 and Neuropathy G62.9 [facility] [place] [id number] [place] [address] 10 Oct [address]005[address] [id number] Oct, Abnormal mammogram of left breast R92.8 [place] [id number] [place] [address] [id number] Sep, Abnormal mammogram R92.8 [place] [id number] [place] [address] [id number] Sep, Acquired hypothyroidism E03.9 [place] [id number] [place] [address] [id number] Sep, Hypothyroidism, unspecified type E03.9 ; Hyperlipemia, mixed E78.2 and Essential hypertension I10 [place] [id number] [place] [address] [id number] Sep, Hypothyroidism, unspecified type E03.9 and Hyperlipemia, mixed E78.2 [place] [id number] [place] [address] [id number] Aug, Acute maxillary sinusitis, recurrence not specified J01.00 [place] [address] [place] [address] [id number] Jul, Hyperlipemia, mixed E78.2 [place] [id number] [place] [address] [id number] Jul, Acquired hypothyroidism E03.9 ; Hyperlipemia, mixed E78.2 ; Multiple joint pain M25.50 ; Esophageal reflux K21.9 ; Otitis media with effusion, right H65.91 and Essential hypertension I10 [address] [place] [address] [id number] Jul, Gastroesophageal reflux disease, esophagitis presence not specified K21.9 [place] [id number] [place] [address] [id number] May, [place] [address] [place] [address] [id number] Apr, Cystitis N30.90 and Well woman exam Z01.419 [place] [address] [place] [address] [id number] Apr, Hematuria R31.9 and Dysuria R30.0 [place] [id number] [place] [address] [id number] Apr, [address] [id number] Apr, Urinary tract infection, site not specified N39.0 and Hematuria, unspecified R31.9 [place] [id number] [place] [address] [id number] Dec, [address] [id number] Nov, [place] [id number] [place] [address] [id number] Oct, Hyperlipemia, mixed E78.2 [place] [id number] [place] [address] [id number] Oct, Gastroesophageal reflux disease, esophagitis presence not specified K21.9 ; Acute serous otitis media of left ear, recurrence not specified H65.02 ; Hyperlipemia, mixed E78.2 and Hypothyroidism, unspecified type E03.9 [place] [id number] [place] [address] [id number] Sep, [address] [id number] Sep, Actinic keratoses L57.0 and Stuffy and runny nose J34.89 [place] [address] [place] [address] [id number] Aug, [place] [address] [place] [address] [id number] Aug, Acute cystitis with hematuria N30.01 [place] [address] [place] [address] [id number] Jul, 2015 Reflux esophagitis K21.0 ; Acquired deformities of toe, 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 ; Multiple joint pain M25.50 and Sinus congestion R09.81 [place] [address] [place] [address] [id number] Jul, [address] [id number] Jun, Acute cystitis without hematuria N30.00 ; Dysuria R30.0 ; Flank pain R10.9 and High risk medication use Z79.899 [facility] [place] [id number] [place] [id number] Jun, Urinary tract infection N39.0 [facility] [place] [address] [facility] [address] [id number] [id number] Jun, [facility] [place] [id number] [place]KE[place] [id number] Jun, Urinary tract infection, site not specified 599.0 and Encounter for immunization [facility] [place] [id number] [id number] Jun, [facility] [place] [address] [id number] [place] [id number] May, [facility] [place] [address] [id number] Dec, [facility] [address]005[address], [place] [address] Dec, [facility] [id number] [place] [address] Dec, [facility] [place] [address]00565[address] [id number] Oct, [facility] [address], [place] [address] Oct, [facility] [place] [id number] [place]KE[place] [id number] Sep, [facility] [address], [place] [address] Sep, [facility] [address]65100[place] [id number] Sep, [facility] [address]005[address], [place] [address] Sep, [facility] [place] [address]005[address] [id number] Aug, [facility] [place] [address] [id number] [place] [id number] Aug, [facility] [place] [facility] [address] [id number] [place] [address] Aug, [facility] [place] [facility] [address] [facility] [id number] [place] [address] Aug, [facility] [place] [address] [id number] [place] [id number] Aug, [facility] [place] [facility] [address] [id number] [place] [address] Aug, [facility] [place] [address] [id number] [place] [id number] Jul, [facility] [place] [facility] [address] [facility] [id number] [place] [address] Jul, [facility] [place] [address] [facility] [id number] LAKE[place] [id number] Jul, [facility] [place] [facility] [address] [facility] [id number], [place] [address] Jul, [facility] [address] [facility] [id number] [place]KE[place] [id number] Jul, [facility] [place] [facility] [address] [facility] [id number], [place] [address] Jul, [facility] [address] [id number] LAKE[place] [id number] Jul, [facility] [place] [facility] [address] [facility] [id number], [place] [address] Jul, [facility] [place] [facility] [address] [facility] [id number], [place] [address] Jun, [facility] [place] [facility] [address] [facility] [id number], [place] [address] Jun, [facility] [place] [address] [id number] [place]KE[place] [id number] Jun, [facility] [place] [facility] [address] [facility] [id number], [place] [address] Jun, [facility] [place] [facility] [address] [id number] [place] [address] Jun, [facility] [place] [address] [id number] [place] [id number] Jun, [facility] [address] [id number] [place] [id number] Jun, [facility] [place] [facility] [address] [facility] [id number], [place] [address] Jun, [facility] [address] [id number] [place] [id number] Jun, [facility] [place] [facility] [address] [facility] [id number], [place] [address] Jun, [facility] [address] [facility] [id number] [place] [id number] May, [facility] [place] [facility] [address] [facility] [id number], [place] [address] May, [facility] [address] [facility] [id number] [place] [id number] May, [facility] [place] [facility] [address] [facility] [id number], [place] [address] May, [facility] [place] [facility] [address] [facility] [id number], [place] [address] Apr, [facility] [place] [facility] [address] [facility] [id number], [place] [address] Apr, [facility] [address] [id number] [place] 035885938 Apr, [facility] [place] [facility] [address] [facility] [id number], [place] [address] Apr, [facility] [address] [id number] [place] [id number] Mar, [facility] [place] [facility] [address] [facility] [id number], [place] [address] Mar, [facility] [address] [id number] [place] [id number] Feb, [facility] [place] [facility] [address] [id number], [place] [address] Feb, [facility] [address] [id number] [place] [id number] January, [facility] [place] [facility] [address] [facility] [id number], [place] [address] January, [facility] [address] [id number] [place] [id number] January, [facility] [place] [facility] [address] [id number], [place] [address] January, [facility] [address] [facility] [id number] [place]KE[place] [id number] Dec, [facility] [place] [facility] [address] [facility] [id number], [place] [address] Dec, [facility] [address] [facility] [id number] LAKE[place] [id number] Dec, [facility] [place] [facility] [address] [facility] [id number], [place] [address] Dec, [facility] [address] [facility] [id number] [place]KE[place] [id number] Nov, [facility] [place] [facility] [address] [facility] [id number], [place] [address] Nov, [facility] [place] [facility] [address] [facility] [id number], [place] [address] 1667 Oct, [facility] [place] [facility] [address] [facility] [id number], [place] [address] 3[address] Oct, [facility] [place] [facility] [address] [facility] [id number], [place] [address] 72[address] Sep, [facility] [address] [id number] [place]KE[place] [id number] Sep, [facility] [address] [facility] [id number] LAKE[place] 817199796 Sep, [facility] [place] [facility] [address] [facility] [id number], [place] [address] 9[address] Sep, [facility] [address] [facility] [id number] [place] [id number] Aug, [facility] [place] [facility] [address] [facility] [id number], [place] [address] 79[address] Aug, [facility] [address] [facility] [id number] [place] [id number] Jul, [facility] [place] [facility] [address] [facility] [id number] [place] [address] 42[address] Jul, [facility] [address] [facility] [id number] [place]KE[place] 371473687 Jul, [facility] [place] [facility] [address] [facility] [id number], [place] [address] 8[address] Jul, [facility] [address] [facility] [id number] LAKE[place] [id number] Jul, [facility] [place] [facility] [address] [facility] [id number], [place] [address] 9[address] Jul, [facility] [address] [facility] [id number] [place]KE[place] 069725091 Jul, [facility] [place] [facility] [address] [facility] [id number], [place] [address]- 6[address] Jul, [facility] [place] [facility] [address] [facility] [id number], [place] [address]- 45[address] Jul, [facility] [address] [facility] [id number] LAKE[place] 059499148 Jun, [facility] [place] [facility] [address] [facility] [id number] [place] [address]- 287[address] Jun, [facility] [address] [id number] LAKE[place] 165066412 Jun, [facility] [address] [facility] [id number] [place]KE[place] 513360025 Jun, [facility] [place] [facility] [address] [facility] [id number], [place] [address]- 23[address] Jun, [facility] [address] [facility] [id number][place] [address]- 85[address] Jun, [facility] [address] [id number] [place] 589476432 Jun, [facility] [address] [facility] [id number], [place] [address] 2546 Jun, [facility] [address] [facility] [id number], [place] [address]- 2546 Jun, [facility] [address] [id number] [place] [id number] May, [facility] [address] [id number] [place] 214100786 May, [facility] [address] [id number] [place] [id number] May, [facility] [address] [id number] [place] [id number] May, [facility] [address] [id number] [place] 388566973 Apr, [facility] [address] [id number] [place] 142066498 Feb, [facility] [address] [id number] [place] [id number] Feb, [facility] [address] [facility] [id number], [place] [address]- 2546 Feb, [facility] [address] [id number] [place] [id number] January, [facility] [address] [id number], [place] [address]- [address] January, [facility] [address] [id number] [place] [id number] January, [facility] [address] [id number] [place] [id number] January, [facility] [address] [id number] [place] 748653606 January, [facility] [address] [facility] [id number], [place] [address]- 2546 Nov, [facility] [address] [facility] [id number], [place] [address]- 5[address] Nov, [facility] [address] [id number] [place]KE[place] 302872994 Oct, [facility] [address] [id number] LAKE[place] 386418775 Oct, [facility] [address] [id number] LAKE[place] 526049672 Oct, [facility] [address] [id number] [place]KE[place] 919742262 Oct, [facility] [address] [facility] [id number], [place] [address]- 2546 Oct, [facility] [address] [facility] [id number], [place] [address]- 2546 Oct, [facility] [address] [id number] [place]KE[place] [id number] Sep, [facility] [address] [facility] [id number], [place] [address]- 9[address] Sep, [facility] [address] [id number] LAKE[place] [id number] Sep, [facility] [address] [id number] LAKE[place] 928298130 Sep, [facility] [address] [id number] [place]KE[place] 217712746 Jun, [facility] [address] [facility] [id number], [place] [address]- 2546 Jun, [facility] [address] [id number] [place]KE[place] [id number] May, [facility] [address] [id number] [place]KE[place] [id number] May, [facility] [address] [id number] LAKE[place] 392266199 Apr, [facility] [address] [id number] LAKE, [place] 1208397[address] Apr, [facility] [address] [facility] [id number] LAKE, [place] 487473098 Apr, [facility] [address] [id number] [place] [id number] Mar, [facility] [address]00565100[place], [place] [address]- 25[address] Feb, [facility] [address] [id number] [place]KE[place] [id number] Nov, [facility] [address]00565100[place] [id number] Nov, [facility] [address]00565100[place], [place] [address]- 2546 Nov, [facility] [address]00565100[place], [place] [address]- 2546 Nov, [facility] [address]00565100[place], [place] [address]- 2546 Nov, [facility] [address] [id number] [place] [id number] Nov, [place] [id number] [address]3085 Sep, [address]65100[place] [address] Sep, IMMUNIZATIONS No Known Immunizations SOCIAL HISTORY Never Assessed REASON FOR VISIT Medication refill request PLAN OF CARE VITAL SIGNS MEDICATIONS Medication Instructions Dosage Frequency Start Date End Date Duration Status Levothyroxine Sodium 75MCG Orally Once a day 1 tablet 24h 30 days Active RESULTS No Results PROCEDURES No [...] L4-S1 03/06/2016 Surgical History Hemmroidectomy-Dr. YANG [place] 2013 Hospitalization History surgeries Hospitalization History [facility] for abdominal/chest pain 07/2015 Hospitalization History Inpt for lumbar surgery x's 10 days 02/2015 Hospitalization History Pt was in [facility] for rehab from surgery, Dx with UTI
--- OUTSIDE RECORDS SUMMARY | 2018-07-27 08:28 | XMS REPORT ---
Author Author ROOPA FOSTER Organization [facility] Address [address] [place] [address] Care Team Providers Care Battery Engineer Name Role Phone ROOPA FOSTER Unavailable PROBLEMS Type Condition ICD9-CM Code ALY02-ZV Code Onset Dates Condition Status SNOMED Code Problem Hyperlipemia, mixed E78.2 Active 362154102 Problem Non-seasonal allergic rhinitis due to pollen J30.1 Active 42855023 Problem Chronic fatigue R53.82 Active 93977026 Problem Essential hypertension I10 Active 65044606 Problem Esophageal reflux K21.9 Active 264101790 Problem Neuropathy G62.9 Active 459363228 Problem Acquired hypothyroidism E03.9 Active [id number] ALLERGIES No Information ENCOUNTERS Encounter Location Date Diagnosis [facility] [id number] [place] [address] [id number] Jun, [place] [address] [id number] May, Hypothyroidism, unspecified type E03.9 ; Essential hypertension I10 and Hyperlipemia, mixed E78.2 [facility] [id number] [place] [address] [id number] Apr, [facility] [address] [id number] Apr, Abnormal mammogram of left breast R92.8 [facility] [id number] [place] [address] [id number] Mar, Abnormal mammogram of left breast R92.8 [facility] [id number] [place] [address] [id number] Mar, [facility] [id number] [place] [address] [id number] Mar, [facility] [id number] [place] [address] Feb, Sore throat and laryngitis J06.0 and Strep throat J02.0 [facility] [address]00565[address], [place] [address] Dec, [facility] [id number], [place] [id number] Dec, [place] [id number] [place] [address] [id number] Dec, Dilated pore of Mk of back L70.8 ; Seborrheic keratoses L82.1 and Non- seasonal allergic rhinitis due to pollen J30.1 [facility] [address] [address] Dec, [address] [id number] Oct, [address] [place] [address] [id number] Oct, Screening breast examination Z12.31 and History of abnormal mammogram Z87.898 [facility] [address] [place] [address] [id number] Sep, [address] [place] [address] [id number] Sep, [address] [place] [address] [id number] Sep, [place] [id number] [place] [address] [id number] Jun, Obesity (BMI 30.0-34.9) E66.9 ; Chronic fatigue R53.82 ; Neuropathy G62.9 ; Essential hypertension I10 and Encounter for immunization Z23 [address] [place] [address] [id number] Jun, Neuropathy G62.9 and Essential hypertension I10 [address] [place] [address] [id number] Apr, [address] [place] [address] [id number] Mar, Neuropathy G62.9 ; Hypothyroidism, unspecified type E03.9 ; Essential hypertension I10 ; Muscle spasm M62.838 and Hyperlipemia, mixed E78.2 [facility] [place] [address] [id number] [place] [address] [id number] Feb, [facility] [address] [id number] January, [facility] [place] [id number] [place] [address] [id number] Dec, [facility] [address] [id number] Dec, Hypothyroidism, unspecified type E03.9 [facility] [place] [id number] [place] [address] [id number] Nov, [facility] [address] [id number] Nov, Neuropathy G62.9 ; Sinus congestion R09.81 ; Hyperlipemia, mixed E78.2 and Hypothyroidism, unspecified type E03.9 [facility] [place] [id number] [place] [address] [id number] Nov, Neuropathy G62.9 [facility] [place] [id number] [place] [address] [id number] Nov, Sinus congestion R09.81 and Acquired hypothyroidism E03.9 [facility] [place] [id number] [place] [address] [id number] Nov, Acquired hypothyroidism E03.9 [facility] [place] [id number] [place] [address] [id number] Oct, [facility] [place] [id number] [place] [address] [id number] Oct, Sinus congestion R09.81 and Neuropathy G62.9 [facility] [place] [id number] [place] [address] [id number] Oct, Fever, unspecified R50.9 ; Sinus congestion R09.81 and Neuropathy G62.9 [facility] [place] [id number] [place] [address] Oct [facility] [place] [id number] [place] [address] [id number] Oct, Abnormal mammogram of left breast R92.8 [place] [id number] [place] [address] [id number] Sep, Abnormal mammogram R92.8 [place] [address] [id number] Sep, Acquired hypothyroidism E03.[address] [id number] Sep, Hypothyroidism, unspecified type E03.9 ; Hyperlipemia, mixed E78.2 and Essential hypertension I10 [address] [id number] Sep, Hypothyroidism, unspecified type E03.9 and Hyperlipemia, mixed E78.[address] [id number] Aug, Acute maxillary sinusitis, recurrence not specified J01.[address] [id number] Jul, Hyperlipemia, mixed E78.[address] [id number] Jul, Acquired hypothyroidism E03.9 ; Hyperlipemia, mixed E78.2 ; Multiple joint pain M25.50 ; Esophageal reflux K21.9 ; Otitis media with effusion, right H65.91 and Essential hypertension I10 [place] [id number] [place] [address] [id number] Jul, Gastroesophageal reflux disease, esophagitis presence not specified K21.9 [place] [id number] [place] [address] [id number] May, [place] [id number] [place] [address] [id number] Apr, Cystitis N30.90 and Well woman exam Z01.419 [place] [address] [place] [address] [id number] Apr, Hematuria R31.9 and Dysuria R30.[address] [id number] Apr, [address] [place] [address] [id number] Apr, Urinary tract infection, site not specified N39.0 and Hematuria, unspecified R31.9 [place] [id number] [place] [address] [id number] Dec, [place] [id number] [place] [address] [id number] Nov, [address] [id number] Oct, Hyperlipemia, mixed E78.2 [place] [id number] [place] [address] [id number] Oct, Gastroesophageal reflux disease, esophagitis presence not specified K21.9 ; Acute serous otitis media of left ear, recurrence not specified H65.02 ; Hyperlipemia, mixed E78.2 and Hypothyroidism, unspecified type E03.9 [place] [id number] [place] [address] [id number] Sep, [place] [id number] [place] [address] [id number] Sep, Actinic keratoses L57.0 and Stuffy and runny nose J34.89 [place] [id number] [place] [address] [id number] Aug, [place] [id number] [place] [address] [id number] Aug, Acute cystitis with hematuria N30.01 [place] [id number] [place] [address] [id number] 16 Jul, 2015 Reflux esophagitis K21.0 ; Acquired deformities of toe, 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 ; Multiple joint pain M25.50 and Sinus congestion R09.81 [address] [place] [address] [id number] Jul, [address] [place] [address] [id number] Jun, Acute cystitis without hematuria N30.00 ; Dysuria R30.0 ; Flank pain R10.9 and High risk medication use Z79.899 [facility] [address] [facility] [id number][place] [id number] Jun, Urinary tract infection N39.0 [facility] [address] [address] [id number] [id number] Jun, [facility] [address] [id number] [id number] Jun, Urinary tract infection, site not specified 599.0 and Encounter for immunization Z23 [facility] [address] [facility] [id number] [id number] Jun, [facility] [id number], [place] [id number] May, [facility] [id number], [place] [id number] Dec, [facility] [address]005[address], [place] [address] Dec, [facility] [address]65100[place], [place] [address] Dec, [facility] [id number], [place] [id number] Oct, [facility] [address]00565100[place], [place] [address] 8[address] Oct, [facility] [address] [facility] [id number], [place] [id number] Sep, [facility] [address]00565100[place], [place] [address] 07[address] Sep, [facility] [address] [facility] [id number], [place] [id number] Sep, [facility] [address]00565100[place], [place] [address] 2546 Sep, [facility] [address] [facility] [id number], [place] [id number] Aug, [facility] [address] [id number] [id number] Aug, [facility] [place] [facility] [address] [id number] [place] [address] Aug, [facility] [place] [facility] [address] [id number] [place] [address]- 3316 Aug, [facility] [address] [id number] [place] [id number] Aug, [facility] [place] [facility] [address] [id number] [place] [address]- 9326 Aug, [facility] [address] [id number], [place] [id number] Jul, [facility] [place] [facility] [address] [id number] [place] [address]- 3311 Jul, [facility] [address] [facility] [id number], [place] [id number] Jul, [facility] [place] [facility] [address] [facility] [id number], [place] [address]- [address] Jul, [facility] [address] [facility] [id number], [place] 1543[address]298 Jul, [facility] [place] [facility] [address] [facility] [id number], [place] [address]- [address] Jul, [facility] [address] [facility] [id number], [place] [id number] Jul, [facility] [place] [facility] [address] [facility] [id number], [place] [address]- 4[address] Jul, [facility] [place] [facility] [address] [facility] [id number], [place] [address]- 8732 Jun, [facility] [place] [facility] [address] [id number], [place] [address]- 6410 Jun, [facility] [address] [facility] [id number], [place] [id number] Jun, [facility] [place] [facility] [address] [facility] [id number], [place] 522239- 6446 Jun, [facility] [place] [facility] [address] [facility] [id number], [place] [address]- 275[address] Jun, [facility] [address] [id number] [place] [id number] Jun, [facility] [address] [id number] [place] [id number] Jun, [facility] [place] [facility] [address] [facility] [id number] [place] [address]- 4846 Jun, [facility] [address] [id number] [place] [id number] Jun, [facility] [place] [facility] [address] [id number] [place] [address]- 6968 Jun, [facility] [address] [id number] [place] [id number] May, [facility] [place] [facility] [address] [facility] [id number], [place] [address]- 9628 May, [facility] [address] [facility] [id number], [place] [id number] May, [facility] [place] [facility] [address] [facility] [id number] [place] [address]- 2049 May, [facility] [place] [facility] [address] [facility] [id number], [place] [address]- 8826 Apr, [facility] [place] [facility] [address] [facility] [id number], [place] [address]- 2466 Apr, [facility] [address] [facility] [id number], [place] 789693286 Apr, [facility] [place] [facility] [address] [facility] [id number], [place] [address]- 0114 Apr, [facility] [address] [facility] [id number] [place] 728234048 Mar, [facility] [place] [facility] [address] [facility] [id number] [place] [address]- 5339 Mar, [facility] [address] [id number] [place] 8046[address] Feb, [facility] [place] [facility] [address] [facility] [id number], [place] [address]- 0496 Feb, [facility] [address] [facility] [id number] [place] 317412329 January, [facility] [place] [facility] [address] [facility] [id number], [place] [address]- 8446 January, [facility] [address] [facility] [id number] [place] [id number] January, [facility] [place] [facility] [address] [facility] [id number], [place] [address]- 7946 January, [facility] [address] [facility] [id number] [place] [id number] Dec, [facility] [place] [facility] [address] [facility] [id number], [place] [address]- 1456 Dec, [facility] [address] [facility] [id number] [place] [id number] Dec, [facility] [place] [facility] [address] [facility] [id number], [place] [address]- 8696 Dec, [facility] [address] [facility] [id number], [place] 307071823 Nov, [facility] [place] [facility] [address], [place] [address]- 4616 Nov, [facility] [place] [facility] [address] [facility] [id number], [place] [address]- 4343 Oct, [facility] [place] [facility] [address] [facility] [id number], [place] [address]- 5086 Oct, [facility] [place] [facility] [address] [facility] [id number], [place] [address]- 5116 Sep, [facility] [address] [facility] [id number], [place] 402998077 Sep, [facility] [address] [facility] [id number] [place] [id number] Sep, [facility] [place] [facility] [address] [facility] [id number], [place] [address]- 8396 Sep, [facility] [address] [id number] [place] 3845[address]133 Aug, [facility] [place] [facility] [address] [facility] [id number], [place] [address]- 1386 Aug, [facility] [address] [facility] [id number], [place] 017458264 Jul, [facility] [place] [facility] [address] [facility] [id number], [place] [address]- 5656 Jul, [facility] [address] [facility] [id number], [place] 329301855 Jul, [facility] [place] [facility] [address] [facility] [id number], [place] [address]- 7069 Jul, [facility] [address] [facility] [id number], [place] 641595164 Jul, [facility] [place] [facility] [address], [place] [address]- 2830 Jul, [facility] [address] [facility] [id number], [place] 710203518 Jul, [facility] [place] [facility] [address] [facility] [id number], [place] [address]- 0428 Jul, [facility] [place] [facility] [address] [facility] [id number], [place] [address]- 8800 Jul, [facility] [address] [facility] [id number], [place] 357117970 Jun, [facility] [place] [facility] [address] [facility] [id number], [place] [address]- 5911 Jun, [facility] [address] [facility] [id number], [place] 366022651 Jun, [facility] [address] [facility] [id number], [place] 610216346 Jun, [facility] [place] [facility] [address] [facility] [id number], [place] [address]- 7097 Jun, [facility] [place] [facility] [address] [facility] [id number], [place] [address]- 0869 Jun, [facility] [address] [id number] [place] 0844301[address] Jun, [facility] [address] [facility] [id number], [place] [address]- 2546 Jun, [facility] [address] [facility] [id number], [place] [address]- 2546 Jun, [facility] [address] [id number] [place] 9902439[address] May, [facility] [address] [id number] [place] 283549281 May, [facility] [address] [id number] [place] 584498261 May, [facility] [address] [id number] [place] 939029857 May, [facility] [address] [id number] [place] 844911684 Apr, [facility] [address] [id number] [place] 434[address] Feb, [facility] [address] [id number] [place] [address] Feb, [facility] [address], [place] [address]- 2546 Feb, [facility] [address] [id number] [place] 835397868 January, [facility] [address]005[address], [place] [address]- 2546 January, [facility] [address] [id number], [place] 335923117 January, [facility] [address] [id number] [place] 486634063 January, [facility] [address] [facility] [id number], [place] 231069898 January, [facility] [address]00565100[place], [place] [address]- 1701 Nov, [facility] [id number], [place] [address]- 2546 Nov, [facility] [address] [id number] [place] 286603493 Oct, [facility] [address] [id number] [place] 49[address]1266 Oct, [facility] [address] [id number] [place] 4667939[address] Oct, [facility] [address] [id number] [place] 244022935 Oct, [facility] [address] [facility] [id number], [place] [address]- 2546 Oct, [facility] [address] [facility] [id number], [place] [address]- 2546 Oct, [facility] [address] [id number], [place] 989732545 Sep, [facility] [address] [facility] [id number], [place] [address]- 978[address] Sep, [facility] [address] [id number] [place] 565317474 Sep, [facility] [address] [id number], [place] 851597308 Sep, [facility] [address] [id number], [place] 698839226 Jun, [facility] [address] [facility] [id number], [place] [address]- 2546 Jun, [facility] [address] [id number], [place] 041627301 May, [facility] [address] [id number] [place] 162592117 May, [facility] [address] [id number] [place] 555363755 Apr, [facility] [address] [id number] [place] 580993815 Apr, [facility] [address] [id number], [place] 164673445 Apr, [facility] [address] [id number], [place] 235937162 Mar, [facility] [address]00565[address], [place] [address]- 2546 Feb, [facility] [address] [id number], [place] [id number] Nov, [facility] [id number] [id number] Nov, [facility] [address] [id number] [address] Nov, [facility] [id number] [place] [address] Nov, [facility] [id number], [place] [address] Nov, [facility] [id number] [id number] Nov, [facility] [id number] [id number] Sep, [facility] [id number] [id number] Sep, IMMUNIZATIONS No Known Immunizations SOCIAL HISTORY Never Assessed REASON FOR VISIT Needing Orders PLAN OF CARE VITAL SIGNS MEDICATIONS Unknown [...] L4-S1 03/06/2016 Surgical History Hemmroidectomy-Dr. YANG in [place] 2013 Hospitalization History surgeries Hospitalization History [facility] for abdominal/chest pain 07/2015 Hospitalization History Inpt for lumbar surgery x's 10 days 02/2015 Hospitalization History Pt was in [facility] for rehab from surgery, Dx with UTI
--- OUTSIDE RECORDS SUMMARY | 2018-07-27 08:28 | XMS REPORT ---
Author Author ROOPA FOSTER Organization [facility] Address [address] [place] [address] Care Team Providers Care Surgical Coder Name Role Phone ROOPA FOSTER Unavailable PROBLEMS Type Condition ICD9-CM Code LEM74-DX Code Onset Dates Condition Status SNOMED Code Problem Essential hypertension I10 Active 40230942 Problem Multiple joint pain M25.50 Active 53080962 Problem Acquired hypothyroidism E03.9 Active 111976186 Problem Non-seasonal allergic rhinitis due to pollen J30.1 Active 94748876 Problem Chronic fatigue R53.82 Active 17990887 Problem Neuropathy G62.9 Active 891795002 Problem Abnormal mammogram of left breast R92.8 Active 383786753 Problem Obesity (BMI 30.0-34.9) E66.9 Active 677735147402985 Problem Hypothyroidism, unspecified type E03.9 Active 99982702 Problem Memory loss 780.93 Active 97669159 Problem Primary localized osteoarthrosis, hand 715.14 Active 609622343 Problem Diverticulosis of colon (without mention of hemorrhage) 562.10 Active 408010491 Problem Unspecified hypothyroidism 244.9 Active 84484334 Problem Actinic keratosis 702.0 Active 790926461 Problem Hyperlipemia, mixed E78.2 Active 779440587 Problem Other psoriasis 696.1 Active 2224668 Problem Esophageal reflux K21.9 Active 719631763 ALLERGIES No Information ENCOUNTERS Encounter Location Date Diagnosis [facility] [address] [facility] [id number] [place] [id number] May, [place] [address] [id number] [place] [id number] Apr, [facility] [address] [id number] [place] [id number] Apr, Abnormal mammogram of left breast R92.8 [facility] [id number] [place] [address] [id number] Mar, Abnormal mammogram of left breast R92.8 [facility] [address] [place] [address] [id number] Mar, [address] [place] [address] [id number] Mar, [facility] [address]00565100[place] [address] Feb, Sore throat and laryngitis J06.0 and Strep throat J02.0 [facility] [address] [facility] [id number] [address] Dec, [address] [place] [address] [id number] Dec, [address] [place] [address] [id number] Dec, Dilated pore of Mk of back L70.8 ; Seborrheic keratoses L82.1 and Non- seasonal allergic rhinitis due to pollen J30.1 [facility] [address]00565100[place] [id number] Dec, [address]00565[place] [id number] Oct, [address] [place] [address] [id number] Oct, Screening breast examination Z12.31 and History of abnormal mammogram Z87.[address] [place] [address] [id number] Sep, [address]00565100[place] [id number] Sep, [address] [place] [address] [id number] Sep, [place] [id number] [place] [address] [id number] Jun, Obesity (BMI 30.0-34.9) E66.9 ; Chronic fatigue R53.82 ; Neuropathy G62.9 ; Essential hypertension I10 and Encounter for immunization Z23 [address] [place] [id number] [place] [address] [id number] Jun, Neuropathy G62.9 and Essential hypertension I10 [facility] [place] [address] [id number] Apr, [facility] [place] [address] [id number] Mar, Neuropathy G62.9 ; Hypothyroidism, unspecified type E03.9 ; Essential hypertension I10 ; Muscle spasm M62.838 and Hyperlipemia, mixed E78.2 [place] [address] [place] [address] [id number] [place] [address] [id number] Feb, [address] [id number] January, [facility] [place] [address] [id number] Dec, [place] [id number] [place] [address] [id number] Dec, Hypothyroidism, unspecified type E03.9 [place] [id number] [place] [address] [id number] Nov, [address] [id number] Nov, Neuropathy G62.9 ; Sinus congestion R09.81 ; Hyperlipemia, mixed E78.2 and Hypothyroidism, unspecified type E03.9 [facility] [place] [id number] [place] [address] [id number] Nov, Neuropathy G62.9 [facility] [place] [id number] [place] [address] [id number] Nov, Sinus congestion R09.81 and Acquired hypothyroidism E03.9 [facility] [place] [id number] [place] [address] [id number] Nov, Acquired hypothyroidism E03.9 [facility] [place] [id number] [place] [address] [id number] Oct, [facility] [place] [id number] [place] [address] [id number] Oct, Sinus congestion R09.81 and Neuropathy G62.9 [address] [place] [address] [id number] Oct, 2016 Fever, unspecified R50.9 ; Sinus congestion R09.81 and Neuropathy G62.9 [facility] [address] [id number] [address] 10 Oct [place] [id number] [place] [address] [id number] Oct, Abnormal mammogram of left breast R92.8 [place] [id number] [place] [address] [id number] Sep, Abnormal mammogram R92.[address] [id number] Sep, Acquired hypothyroidism E03.9 [place] [id number] [place] [address] [id number] Sep, Hypothyroidism, unspecified type E03.9 ; Hyperlipemia, mixed E78.2 and Essential hypertension I10 [place] [id number] [place] [address] [id number] Sep, Hypothyroidism, unspecified type E03.9 and Hyperlipemia, mixed E78.2 [place] [id number] [place] [address] [id number] Aug, Acute maxillary sinusitis, recurrence not specified J01.00 [place] [id number] [place] [address] [id number] Jul, Hyperlipemia, mixed E78.2 [place] [id number] [place] [address] [id number] Jul, Acquired hypothyroidism E03.9 ; Hyperlipemia, mixed E78.2 ; Multiple joint pain M25.50 ; Esophageal reflux K21.9 ; Otitis media with effusion, right H65.91 and Essential hypertension I10 [place] [id number] [place] [address] [id number] Jul, Gastroesophageal reflux disease, esophagitis presence not specified K21.9 [place] [id number] [place] [address] [id number] May, [address] [place] [address] [id number] Apr, Cystitis N30.90 and Well woman exam Z01.[address] [id number] Apr, Hematuria R31.9 and Dysuria R30.[address] [id number] Apr, [address] [id number] Apr, Urinary tract infection, site not specified N39.0 and Hematuria, unspecified R31.[address] [id number] Dec, [address] [id number] Nov, [address] [id number] Oct, Hyperlipemia, mixed E78.[address] [id number] Oct, Gastroesophageal reflux disease, esophagitis presence not specified K21.9 ; Acute serous otitis media of left ear, recurrence not specified H65.02 ; Hyperlipemia, mixed E78.2 and Hypothyroidism, unspecified type E03.9 [place] [id number] [place] [address] [id number] Sep, [address] [id number] Sep, Actinic keratoses L57.0 and Stuffy and runny nose J34.89 [place] [id number] [place] [address] [id number] Aug, [address] [id number] Aug, Acute cystitis with hematuria N30.01 [place] [id number] [place] [address] [id number] Jul, Reflux esophagitis K21.0 ; Acquired deformities of toe, 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 ; Multiple joint pain M25.50 and Sinus congestion R09.81 [address]00565100[place] [id number] Jul, [address] [place] [address] [id number] Jun, Acute cystitis without hematuria N30.00 ; Dysuria R30.0 ; Flank pain R10.9 and High risk medication use Z79.899 [address]00565100[place] [id number] Jun, Urinary tract infection N39.[address] [id number] [id number] Jun, [address] [place] [address] [id number] Jun, Urinary tract infection, site not specified 599.0 and Encounter [facility] [id number] [id number] Jun, [place] [id number] [id number] May, [address] [place] [address] [id number] Dec, [facility] [id number] [place] [address] Dec, [facility] [id number] [place] [address] 07835- 7030 Dec, [address]65100[place] [id number] Oct, [facility] [id number] [place] [address] Oct, [address] [place] [address] [id number] Sep, [facility] [address] [place] [address] 89537- 6146 Sep, [place] [id number] [id number] Sep, [facility] [place] [facility] [address] [id number] [place] [address] Sep, [facility] [address] [id number] [place] [id number] Aug, [facility] [address] [facility] [id number] [place] [id number] Aug, [facility] [place] [facility] [address] [facility] [id number] [place] [address] Aug, [facility] [place] [facility] [address] [facility] [id number] [place] [address]- 3979 Aug, [facility] [address] [facility] [id number] [place] [id number] Aug, [facility] [place] [facility] [address]00565100[place] 9[address] Aug, [facility] [address] [facility] [id number] [place] [id number] Jul, [facility] [place] [facility] [address] [facility] [id number] [place] [address]- 8731 Jul, [facility] [address] [facility] [id number] [place] [id number] Jul, [facility] [place] [facility] [address] [facility] [id number] [address]- 8[address] Jul, [facility] [address] [facility] [id number] [place] [id number] Jul, [facility] [place] [facility] [address] [facility] [id number] [place] [address]- 8853 Jul, [facility] [address] [facility] [id number] [place]INT[place] [id number] Jul, [facility] [place] [facility] [address] [facility] [id number] [place] [address]- 1518 Jul, [facility] [place] [facility] [address] [facility] [id number] [place] [address]- 3095 Jun, [facility] [place] [facility] [address] [facility] [id number] [place] [address]- 0772 Jun, [facility] [address] [id number] [place] [id number] Jun, [facility] [place] [facility] [address] [facility] [id number] [place]- 4[address] Jun, [facility] [place] [facility] [address] [facility] [id number] [place] [address]- 9769 Jun, [facility] [address] [id number] [place] [id number] Jun, [facility] [address] [id number] [place] [id number] Jun, [facility] [place] [facility] [address] [facility] [id number] [place] [address]- 1891 Jun, [facility] [address] [facility] [id number] [place] [id number] Jun, [facility] [place] [facility] [address] [facility] [id number] [place] [address]- 7830 Jun, [facility] [address] [facility] [id number] [place] [id number] May, [facility] [place] [facility] [address] [facility] [id number] [place] [address]- 7514 May, [facility] [address] [facility] [id number] [place] [id number] May, [facility] [place] [facility] [address] [facility] [id number] [place] [address]- 1611 May, [facility] [place] [facility] [address] [facility] [id number] [address]- 3024 Apr, [facility] [place] [facility] [address] [facility] [id number] [place] [address]- 3595 Apr, [facility] [address] [facility] [id number] [place] [id number] Apr, [facility] [place] [facility] [address] [facility] [id number] [place] [address]- 1512 Apr, [facility] [address] [id number] [place] [id number] Mar, [facility] [place] [facility] [address] [id number] [place] [address]- 6136 Mar, [facility] [address] [id number] [place] [id number] Feb, [facility] [place] [facility] [address] [facility] [id number] [place] [address]- 8586 Feb, [facility] [address] [id number] [place] [id number] January, [facility] [place] [facility] [address] [facility] [id number] [address]- 3669 January, [facility] [address] [facility] [id number] [place] [id number] January, [facility] [place] [facility] [address] [id number] [address]- 3866 January, [facility] [address] [facility] [id number] [place] [id number] Dec, [facility] [place] [facility] [address] [facility] [id number] [place] [address]- 2184 Dec, [facility] [address] [facility] [id number] [place] [id number] Dec, [facility] [place] [facility] [address] [facility] [id number] [place] [address]- 2986 Dec, [facility] [address] [facility] [id number] [place] [id number] Nov, [facility] [place] [facility] [address] [facility] [id number] [place] [address]- 0545 Nov, [facility] [place] [facility] [address] [facility] [id number] [place] [address]- 0738 Oct, [facility] [place] [facility] [address] [facility] [id number] [place] [address]- 1869 Oct, [facility] [place] [facility] [address] [facility] [id number] [place] [address]- 2877 Sep, [facility] [address] [id number] [place] [id number] Sep, [facility] [address] [id number] [place] 712344594 Sep, [facility] [place] [facility] [address] [facility] [id number] [place] [address]- 6827 Sep, [facility] [address] [id number] [place] [id number] Aug, [facility] [place] [facility] [address] [facility] [id number] [place] [address]- 5917 Aug, [facility] [address] [id number] [place] [id number] Jul, [facility] [place] [facility] [address]00565100[place] [address]- 4851 Jul, [facility] [address] [id number] [place] [id number] Jul, [facility] [place] [facility] [address]00565100[place] [address]- 6281 Jul, [facility] [address] [facility] [id number] [place] 773190924 Jul, [facility] [place] [facility] [address]00565100[place] [address]- 0542 Jul, [facility] [address] [id number] [place] [id number] Jul, [facility] [place] [facility] [address] [id number] [address]- 4473 Jul, [facility] [place] [facility] [address] [facility] [id number] [place] [address]- 1921 Jul, [facility] [address] [facility] [id number] [place] [id number] Jun, [facility] [place] [facility] [address] [facility] [id number] [place] 95040922- 4420 Jun, [facility] [address] [facility] [id number] [place] [id number] Jun, [facility] [address] [id number] [place] 048686732 Jun, [facility] [place] [facility] [address] [facility] [id number] [place] 224628[place]- 2746 Jun, [facility] [place] [facility] [address] [facility] [id number] [place] [address]- 2276 Jun, [facility] [address] [id number] [place] 504912528 Jun, [facility] [place] [facility] [address] [facility] [id number] [place] 16[place]- 6024 Jun, [facility] [place] [facility] [address] [facility] [id number] [place] 44824747- 8062 Jun, [facility] [address] [id number] [place] 082001795 May, [facility] [address] [id number] [place] 707630964 May, [facility] [address] [id number] [place] [id number] May, [facility] [address] [id number] [place] 728485850 May, [facility] [address] [id number] [place] 961225270 Apr, [facility] [address] [id number] [place] 570155901 Feb, [facility] [address] [id number] [place] 918743001 Feb, [facility] [place] [facility] [address] [facility] [id number] [place] [address]- 2065 Feb, [facility] [address] [id number] [place] [id number] January, [facility] [place] [facility] [address] [facility] [id number] [place] [address]- 8637 January, [facility] [address] [id number] [place] 012851833 January, [facility] [address] [id number] [place] 722605120 January, [facility] [address] [id number] [place] 251504033 January, [facility] [place] [facility] [address] [facility] [id number] [place] [address]- 2546 Nov, [facility] [address]005[address]100[place] [address]- 2546 Nov, [facility] [address] [id number] [place] [id number] Oct, [facility] [address] [id number] [place] [id number] Oct, [facility] [address] [id number] [place] 177471885 Oct, [facility] [id number] [place] 292160618 Oct, [facility] [place] [facility] [address]00565100[place] [address]- 2546 Oct, [facility] [address] [id number] [address]- 2546 Oct, [facility] [address] [id number] [place]INT[place] 799728466 Sep, [facility] [address] [id number] [address]- 2546 Sep, [facility] [address] [id number] [place] 217822688 Sep, [facility] [address] [id number] [place] 281903748 Sep, [facility] [address] [id number] [place] 239813785 Jun, [facility] [place] [facility] [address] [facility] [id number] [place] [address]- 2546 Jun, [facility] [address] [id number] [place] 695018962 May, [facility] [address] [id number] [place]INT[place] [id number] May, [facility] [id number] [place] 989331312 Apr, [facility] [id number] [place] 367935363 Apr, [facility] [id number] [place] 911543800 Apr, [facility] [id number] [place] [address] [id number] Mar, [facility] [id number] [place] [address] 00729- 2546 Feb, [facility] [id number] [place] [address] [id number] Nov, [facility] [id number] [place] [address] [id number] Nov, [facility] [id number] [place] [address] 86115- 2546 Nov, [facility] [id number] [place] [address] 15245- 2546 Nov, [facility] [id number] [place] [address] 79647- 2546 Nov, [facility] [id number] [place] 063016318 Nov, [facility] [address]00565100[place] 338589512 Sep, [facility] [address] [id number] [place] [id number] Sep, IMMUNIZATIONS No Known Immunizations SOCIAL HISTORY Never Assessed REASON FOR VISIT med question PLAN OF CARE VITAL SIGNS MEDICATIONS Medication Instructions Dosage Frequency Start Date End Date Duration Status Diclofenac Sodium 1 % Transdermal 3 times a day as needed apply 2 grams Mar, 0 days Active RESULTS No Results PROCEDURES No Known procedures INSTRUCTIONS MEDICATIONS ADMINISTERED No Known Medications MEDICAL (GENERAL) HISTORY Type Description Date Medical History hyperlipidemia Medical History acid reflux Medical History allergies Medical History Arthritis Medical History chronic obstructive pulmonary disease (COPD) Medical History osteoporosis Medical History thyroid disorder Medical History Anal fissure Surgical History foot surgery rt hammer toe and b union_ repair 05/2015 Surgical History bladder surgery--prolapse x 2 2003, 2005 Surgical History partial hysterectomy 1979 Surgical History carpal tunnel release-bilateral 1997 Surgical History colonoscopy 2013 Surgical History right ankle surgery x 5 (ankle is now fused) 2010 Surgical History decompressive lumbar laminectomy and fusion L4-S1 03/06/2016 Surgical History Hemmroidectomy-Dr. YANG in [place] 2013 Hospitalization History surgeries Hospitalization History [facility] for abdominal/chest pain 07/2015 Hospitalization History Inpt for lumbar surgery x's 10 days 02/2015 Hospitalization History Pt was in [facility] for rehab from surgery, Dx with UTI
--- OUTSIDE RECORDS SUMMARY | 2018-07-27 08:29 | XMS REPORT ---
Author Author ROOPA FOSTER Organization [facility] Address [address] [place] [address] Care Team Providers Care Suppression Crew Leader Name Role Phone ROOPA FOSTER Unavailable PROBLEMS Type Condition ICD9-CM Code GUL33-LP Code Onset Dates Condition Status SNOMED Code Problem Essential hypertension I10 Active 18202308 Problem Multiple joint pain M25.50 Active 70839830 Problem Acquired hypothyroidism E03.9 Active 799587898 Problem Non-seasonal allergic rhinitis due to pollen J30.1 Active 09832259 Problem Chronic fatigue R53.82 Active 40319002 Problem Neuropathy G62.9 Active 827459890 Problem Abnormal mammogram of left breast R92.8 Active 866513573 Problem Obesity (BMI 30.0-34.9) E66.9 Active 956150316348148 Problem Hypothyroidism, unspecified type E03.9 Active 75377473 Problem Memory loss 780.93 Active 21367613 Problem Primary localized osteoarthrosis, hand 715.14 Active 127745995 Problem Diverticulosis of colon (without mention of hemorrhage) 562.10 Active 262207806 Problem Unspecified hypothyroidism 244.9 Active 93768572 Problem Actinic keratosis 702.0 Active 018780071 Problem Hyperlipemia, mixed E78.2 Active 321295061 Problem Other psoriasis 696.1 Active 7407367 Problem Esophageal reflux K21.9 Active 216630624 ALLERGIES No Information ENCOUNTERS Encounter Location Date Diagnosis [facility] [address] [id number] [id number] May, [facility] [address] [id number] [id number] Apr, [facility] [address] [id number] [address] Apr, Abnormal mammogram of left breast R92.8 [facility] [id number] [place] [address] [id number] Mar, Abnormal mammogram of left breast R92.8 [facility] [address] [place] [address] [id number] Mar, [address] [place] [address] [id number] Mar, [facility] [address]005[address] [address] Feb, Sore throat and laryngitis J06.0 and Strep throat J02.0 [facility] [address] [facility] [id number] [address] Dec, [id number] [place] [address] [id number] Dec, [address] [place] [address] [id number] Dec, Dilated pore of Mk of back L70.8 ; Seborrheic keratoses L82.1 and Non- seasonal allergic rhinitis due to pollen J30.1 [facility] [address]00565[address] [id number] Dec, [address]005[address] [id number] Oct, [address] [place] [address] [id number] Oct, Screening breast examination Z12.31 and History of abnormal mammogram Z87.898 [address] [place] [address] [id number] Sep, [address]65100[place] [address] Sep, [address] [place] [address] [id number] Sep, [address] [id number] [place] [address] [id number] Jun, Obesity (BMI 30.0-34.9) E66.9 ; Chronic fatigue R53.82 ; Neuropathy G62.9 ; Essential hypertension I10 and Encounter for immunization Z23 [address] [place] [id number] [place] [address] [id number] Jun, Neuropathy G62.9 and Essential hypertension I10 [facility] [place] [address] [id number] Apr, [facility] [place] [address] [id number] Mar, Neuropathy G62.9 ; Hypothyroidism, unspecified type E03.9 ; Essential hypertension I10 ; Muscle spasm M62.838 and Hyperlipemia, mixed E78.2 [place] [id number] [place] [address] [id number] Feb, [address] [id number] January, [facility] [place] [address] [id number] Dec, [address] [id number] [place] [address] [id number] Dec, Hypothyroidism, unspecified type E03.9 [address] [place] [id number] [place] [address] [id number] Nov, [address] [id number] Nov, Neuropathy G62.9 ; Sinus congestion R09.81 ; Hyperlipemia, mixed E78.2 and Hypothyroidism, unspecified type E03.9 [facility] [place] [id number] [place] [address] [id number] Nov, Neuropathy G62.9 [facility] [place] [id number] [place] [address] [id number] Nov, Sinus congestion R09.81 and Acquired hypothyroidism E03.9 [facility] [place] [id number] [place] [address] [id number] Nov, Acquired hypothyroidism E03.9 [facility] [place] [id number] [place] [address] [id number] Oct, [facility] [place] [id number] [place] [address] [id number] Oct, Sinus congestion R09.81 and Neuropathy G62.9 [address] [place] [address] [id number] 14 Oct, 2016 Fever, unspecified R50.9 ; Sinus congestion R09.81 and Neuropathy G62.9 [facility] [place] [address] [id number] [place] [address] 10 Oct [address] [place] [id number] [place] [address] [id number] Oct, Abnormal mammogram of left breast R92.8 [address] [place] [id number] [place] [address] [id number] Sep, Abnormal mammogram R92.[address] [id number] Sep, Acquired hypothyroidism E03.9 [place] [id number] [place] [address] [id number] Sep, Hypothyroidism, unspecified type E03.9 ; Hyperlipemia, mixed E78.2 and Essential hypertension I10 [address] [id number] [place] [address] [id number] Sep, Hypothyroidism, unspecified type E03.9 and Hyperlipemia, mixed E78.2 [place] [place] [id number] [place] [address] [id number] Aug, Acute maxillary sinusitis, recurrence not specified J01.00 [place] [place] [id number] [place] [address] [id number] Jul, Hyperlipemia, mixed E78.2 [address] [place] [id number] [place] [address] [id number] Jul, Acquired hypothyroidism E03.9 ; Hyperlipemia, mixed E78.2 ; Multiple joint pain M25.50 ; Esophageal reflux K21.9 ; Otitis media with effusion, right H65.91 and Essential hypertension I10 [place] [place] [id number] [place] [address] [id number] Jul, Gastroesophageal reflux disease, esophagitis presence not specified K21.9 [place] [id number] [place] [address] [id number] May, [address] [place] [address] [id number] Apr, Cystitis N30.90 and Well woman exam Z01.[address] [id number] Apr, Hematuria R31.9 and Dysuria R30.[address] [id number] Apr, [address] [id number] Apr, Urinary tract infection, site not specified N39.0 and Hematuria, unspecified R31.[address] [id number] Dec, [address] [id number] Nov, [address] [id number] Oct, Hyperlipemia, mixed E78.[address] [id number] Oct, Gastroesophageal reflux disease, esophagitis presence not specified K21.9 ; Acute serous otitis media of left ear, recurrence not specified H65.02 ; Hyperlipemia, mixed E78.2 and Hypothyroidism, unspecified type E03.9 [place] [id number] [place] [address] [id number] Sep, [address] [id number] Sep, Actinic keratoses L57.0 and Stuffy and runny nose J34.89 [place] [id number] [place] [address] [id number] Aug, [address] [id number] Aug, Acute cystitis with hematuria N30.01 [place] [id number] [place] [address] [id number] Jul, Reflux esophagitis K21.0 ; Acquired deformities of toe, 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 ; Multiple joint pain M25.50 and Sinus congestion R09.81 [address]00565[address] [id number] Jul, [address] [place] [address] [id number] Jun, Acute cystitis without hematuria N30.00 ; Dysuria R30.0 ; Flank pain R10.9 and High risk medication use Z79.899 [address]65[address] [id number] Jun, Urinary tract infection N39.[address] [id number] [id number] Jun, [address] [place] [address] [id number] Jun, Urinary tract infection, site not specified 599.0 and Encounter [facility] [id number] [id number] Jun, [place] [id number] [id number] May, [address] [place] [address] [id number] Dec, [facility] [id number] [place] [address] Dec, [facility] [id number] [place] [address]- [address] Dec, [address]100[place], [place] [id number] Oct, [facility] [id number] [place] [address] Oct, [address] [place] [address] [id number] Sep, [facility] [address] [place] [address]- 4[address] Sep, [place] [id number] [id number] Sep, [facility] [place] [facility] [address] [id number] [place] [address] Sep, [facility] [address] [id number] [place] [id number] Aug, [facility] [address] [id number] [place] [id number] Aug, [facility] [place] [facility] [address] [facility] [id number] [place]- 0662 Aug, [facility] [place] [facility] [address] [facility] [id number] [place] [address]- 3683 Aug, [facility] [address] [id number] [place] [id number] Aug, [facility] [place] [facility] [id number] [address] Aug, [facility] [address] [id number], [place] [id number] Jul, [facility] [place] [facility] [address] [facility] [id number][place] [address]- 8663 Jul, [facility] [address] [id number] [place] [id number] Jul, [facility] [place] [facility] [address] [facility] [id number][place] [address]- 2[address] Jul, [facility] [address] [id number], [place] [id number] Jul, [facility] [place] [facility] [address] [facility] [id number][place] [address]- 98[address] Jul, [facility] [address] [id number], [place] [id number] Jul, [facility] [place] [facility] [address] [facility] [id number][place] [address]- 2604 Jul, [facility] [place] [facility] [address] [facility] [id number], [place] [address]- 4[address] Jun, [facility] [place] [facility] [address] [facility] [id number][place] [address]- 40[address] Jun, [facility] [address] [id number] [place] [id number] Jun, [facility] [place] [facility] [address] [facility] [id number] [place]- [address] Jun, [facility] [place] [facility] [address] [facility] [id number] [place] [address]- 9575 Jun, [facility] [address] [id number] [place] [id number] Jun, [facility] [address] [id number] [place] [id number] Jun, [facility] [place] [facility] [address] [facility] [id number] [place] [address]- 0344 Jun, [facility] [address] [id number] [place] [id number] Jun, [facility] [place] [facility] [address] [facility] [id number][place] [address]- 6[address] Jun, [facility] [address] [id number] [place] [id number] May, [facility] [place] [facility] [address] [facility] [id number], [place] [address]- 7369 May, [facility] [address] [id number] [place] [id number] May, [facility] [place] [facility] [address] [facility] [id number], [place] [address]- [address] May, [facility] [place] [facility] [address] [facility] [id number][place] [address]- 8320 Apr, [facility] [place] [facility] [address] [facility] [id number], [place] [address]- 39[address] Apr, [facility] [address] [id number] [place] [id number] Apr, [facility] [place] [facility] [address] [facility] [id number][place] [address]- 8971 Apr, [facility] [address] [id number] [place] [id number] Mar, [facility] [place] [facility] [address] [id number] [place] [address]- 0986 Mar, [facility] [address] [id number] [place] [id number] Feb, [facility] [place] [facility] [address] [facility] [id number] [place] [address]- 6516 Feb, [facility] [address] [id number] [place] [id number] January, [facility] [place] [facility] [address] [facility] [id number][place] [address]- 6401 January, [facility] [address] [id number] [place] [id number] January, [facility] [place] [facility] [address] [id number] [address]- 5[address] January, [facility] [address] [id number] [place] [id number] Dec, [facility] [place] [facility] [address] [facility] [id number], [place] [address]- 4[address] Dec, [facility] [address] [id number] [place] [id number] Dec, [facility] [place] [facility] [address] [facility] [id number], [place] [address]- 5806 Dec, [facility] [address] [id number], [place] 832930509 Nov, [facility] [place] [facility] [address] [facility] [id number] [place] [address]- 2955 Nov, [facility] [place] [facility] [address] [facility] [id number] [place] [address]- 9991 Oct, [facility] [place] [facility] [address] [facility] [id number] [place] [address]- 8918 Oct, [facility] [place] [facility] [address] [facility] [id number][place] [address]- 0129 Sep, [facility] [address] [id number] [place] [id number] Sep, [facility] [address] [id number] [place] [id number] Sep, [facility] [place] [facility] [address] [facility] [id number][place] [address]- 3516 Sep, [facility] [address] [id number] [place] [id number] Aug, [facility] [place] [facility] [address] [facility] [id number], [place] [address]- 9998 Aug, [facility] [address] [id number] [place] [id number] Jul, [facility] [place] [facility] [address], [place] [address]- 0[address] Jul, [facility] [address] [id number], [place] [id number] Jul, [facility] [place] [facility] [address]005[address], [place] [address]- 7[address] Jul, [facility] [address] [id number], [place] 799969895 Jul, [facility] [place] [facility] [address], [place] [address]- 7485 Jul, [facility] [address] [id number], [place] 551840550 Jul, [facility] [place] [facility] [address] [id number] [address]- 0323 Jul, [facility] [place] [facility] [address] [facility] [id number], [place] [address]- 3192 Jul, [facility] [address] [id number], [place] 165826626 Jun, [facility] [place] [facility] [address] [facility] [id number], [place] 31066380- 0555 Jun, [facility] [address] [id number], [place] 390412273 Jun, [facility] [address] [id number] [place] [id number] Jun, [facility] [place] [facility] [address] [facility] [id number] [place] 92846891- 9538 Jun, [facility] [place] [facility] [address] [facility] [id number] [place] [address]- 3518 Jun, [facility] [address] [id number] [place] [id number] Jun, [facility] [place] [facility] [address] [facility] [id number] [place] 57706689- 3074 Jun, [facility] [place] [facility] [address] [facility] [id number] [place] 56020139- 0960 Jun, [facility] [address] [id number] [place] [id number] May, [facility] [address] [id number] [place] [id number] May, [facility] [address] [id number] [place] [id number] May, [facility] [address] [id number] [place] [id number] May, [facility] [address] [id number], [place] 914657922 Apr, [facility] [address] [id number], [place] 038320086 Feb, [facility] [address] [id number], [place] 396409596 Feb, [facility] [place] [facility] [address] [facility] [id number][place] [address]- 7749 Feb, [facility] [address] [id number] [place] [id number] January, [facility] [place] [facility] [address] [facility] [id number] [place] [address]- 6826 January, [facility] [address] [id number], [place] 00[address]11941 January, [facility] [address] [id number], [place] 826001759 January, [facility] [address] [id number] [place] [id number] January, [facility] [place] [facility] [address] [facility] [id number], [place] [address]- 2546 Nov, [facility] [address]00565100[place] [address]- 2546 Nov, [facility] [address] [id number], [place] 529104888 Oct, [facility] [address] [id number] [place] [id number] Oct, [facility] [address] [id number], [place] 299623639 Oct, [facility] [id number], [place] 500558657 Oct, [facility] [place] [facility] [address]00565100[place] [address]- 2546 Oct, [facility] [address] [id number], [place] [address]- 2546 Oct, [facility] [address] [id number], [place] 795610085 Sep, [facility] [address] [id number], [place] [address]- 2546 Sep, [facility] [address] [id number], [place] 443663298 Sep, [facility] [address] [id number], [place] 859874743 Sep, [facility] [address] [id number], [place] 345358049 Jun, [facility] [place] [facility] [address] [facility] [id number], [place] [address]- 2546 Jun, [facility] [address] [id number], [place] 320519791 May, [facility] [address] [id number], [place] [address] May, [facility] [id number], [place] [id number] Apr, [facility] [id number] [id number] Apr, [facility] [address] [id number] [id number] Apr, [facility] [id number] [place] [id number] Mar, [facility] [id number] [place] [phone] Feb, [facility] [id number] [place] [id number] Nov, [facility] [id number] [place] [id number] Nov, [facility] [id number] [place] [address] Nov, [facility] [id number] [place] [phone] Nov, [facility] [id number] [place] [phone] Nov, [facility] [id number] [id number] Nov, [facility] [id number] [id number] Sep, [facility] [address] [id number] [phone] Sep, IMMUNIZATIONS No Known Immunizations SOCIAL HISTORY Never Assessed REASON FOR VISIT refill on diclofenac PLAN OF CARE VITAL SIGNS MEDICATIONS Medication Instructions Dosage Frequency Start Date End Date Duration Status Diclofenac Sodium 75 mg Orally twice a day as needed 1 tablet 30 Active RESULTS No Results PROCEDURES No Known [...] carpal tunnel release-bilateral 1997 Surgical History colonoscopy 2014 Surgical History right ankle surgery x 5 (ankle is now fused) 2010 Surgical History decompressive lumbar laminectomy and fusion L4-S1 03/06/2016 Surgical History Hemmroidectomy-Dr. YANG in [place] 2013 Hospitalization History surgeries Hospitalization History [facility] for abdominal/chest pain 07/2015 Hospitalization History Inpt for lumbar surgery x's 10 days 02/2015 Hospitalization History Pt was in [facility] for rehab from surgery, Dx with UTI -03/2016
--- OUTSIDE RECORDS SUMMARY | 2018-07-27 08:30 | XMS REPORT ---
Author Author NEVAEH MCCARTY Organization [facility] Address [address] [place] [address] Care Team Providers Care Batch Room Technician Name Role Phone NEVAEH MCCARTY Unavailable PROBLEMS Type Condition ICD9-CM Code ABN56-GS Code Onset Dates Condition Status SNOMED Code Problem Essential hypertension I10 Active 21904837 Problem Multiple joint pain M25.50 Active 00158998 Problem Acquired hypothyroidism E03.9 Active 120965785 Problem Non-seasonal allergic rhinitis due to pollen J30.1 Active 99576486 Problem Chronic fatigue R53.82 Active 70148818 Problem Neuropathy G62.9 Active 769261647 Problem Abnormal mammogram of left breast R92.8 Active 753118069 Problem Obesity (BMI 30.0-34.9) E66.9 Active 456865294604649 Problem Hypothyroidism, unspecified type E03.9 Active 80832477 Problem Memory loss 780.93 Active 72179578 Problem Primary localized osteoarthrosis, hand 715.14 Active 254330439 Problem Diverticulosis of colon (without mention of hemorrhage) 562.10 Active 996491774 Problem Unspecified hypothyroidism 244.9 Active 94035506 Problem Actinic keratosis 702.0 Active 057225003 Problem Hyperlipemia, mixed E78.2 Active 734192963 Problem Other psoriasis 696.1 Active 6441935 Problem Esophageal reflux K21.9 Active 487107633 ALLERGIES Substance Reaction Event Type Date Status Biaxin hives Drug Allergy Feb, Active ENCOUNTERS Encounter Location Date Diagnosis [facility] [address] [facility] [id number] [id number] Apr, Abnormal mammogram of left breast R92.8 [facility] [address] [id number][place] [id number] Mar, Abnormal mammogram of left breast R92.8 [facility] [address] [id number], [place] [id number] Mar, [facility] [id number][place] [id number] Mar, [facility] [id number] [place] [address] Feb, Sore throat and laryngitis J06.0 and Strep throat J02.0 [facility] [address] [facility] [id number], [place] [address] Dec, [facility] [id number] [place] [address] [id number] Dec, [facility] [id number] [place] [address] [id number] Dec, Dilated pore of Mk of back L70.8 ; Seborrheic keratoses L82.1 and Non- seasonal allergic rhinitis due to pollen J30.1 [facility] [address] [place] [address] [id number] Dec, [facility] [address]00565100[place] [address] Oct, [facility] [address] [place] [address] [id number] Oct, Screening breast examination Z12.31 and History of abnormal mammogram Z87.[address] [place] [address] [id number] Sep, [address] [place] [address] [id number] Sep, [address] [place] [address] [phone] Sep, [address] [place] [address] [id number] Jun, Obesity (BMI 30.0-34.9) E66.9 ; Chronic fatigue R53.82 ; Neuropathy G62.9 ; Essential hypertension I10 and Encounter for immunization Z23 [facility] [address] [place] [address] [id number] Jun, Neuropathy G62.9 and Essential hypertension I10 [id number] [place] [address] [id number] Apr, [facility] [place] [id number] [place] [address] [id number] Mar, Neuropathy G62.9 ; Hypothyroidism, unspecified type E03.9 ; Essential hypertension I10 ; Muscle spasm M62.838 and Hyperlipemia, mixed E78.2 [facility] [id number] [place] [address] [id number] Feb, [facility] [place] [address] [id number] January, [facility] [id number] [place] [address] [id number] Dec, [facility] [address] [id number] Dec, Hypothyroidism, unspecified type E03.9 [facility] [place] [id number] [place] [address] [id number] Nov, [facility] [address] [id number] Nov, Neuropathy G62.9 ; Sinus congestion R09.81 ; Hyperlipemia, mixed E78.2 and Hypothyroidism, unspecified type E03.9 [facility] [id number] [place] [address] [id number] Nov, Neuropathy G62.9 [facility] [address] [place] [address] [id number] Nov, Sinus congestion R09.81 and Acquired hypothyroidism E03.9 [facility] [address] [place] [address] [id number] Nov, Acquired hypothyroidism E03.9 [facility] [address] [place] [address] [id number] Oct, [facility] [address] [id number] Oct, Sinus congestion R09.81 and Neuropathy G62.9 [facility] [place] [id number] [place] [address] [id number] Oct, Fever, unspecified R50.9 ; Sinus congestion R09.81 and Neuropathy G62.9 [facility] [address] [id number] [place] [address] Oct [address] [place] [address] [id number] Oct, Abnormal mammogram of left breast R92.8 [address] [id number] [place] [address] [id number] Sep, Abnormal mammogram R92.8 [place] [id number] [place] [address] [id number] Sep, Acquired hypothyroidism E03.9 [place] [address] [place] [address] [id number] Sep, Hyperlipemia, mixed E78.2 ; Hypothyroidism, unspecified type E03.9 and Essential hypertension I10 [address] [place] [address] [id number] Sep, Hypothyroidism, unspecified type E03.9 and Hyperlipemia, mixed E78.2 [place] [id number] [place] [address] [id number] Aug, Acute maxillary sinusitis, recurrence not specified J01.00 [place] [address] [place] [address] [id number] Jul, Hyperlipemia, mixed E78.2 [place] [address] [place] [address] [id number] Jul, Acquired hypothyroidism E03.9 ; Hyperlipemia, mixed E78.2 ; Multiple joint pain M25.50 ; Esophageal reflux K21.9 ; Otitis media with effusion, right H65.91 and Essential hypertension I10 [address] [place] [address] [id number] Jul, Gastroesophageal reflux disease, esophagitis presence not specified K21.9 [place] [id number] [place] [address] [id number] May, [address] [place] [address] [place] [address] [id number] Apr, Cystitis N30.90 and Well woman exam Z01.419 [address] [place] [place] [address] [id number] Apr, Hematuria R31.9 and Dysuria R30.0 [place] [id number] [place] [address] [id number] Apr, [address] [id number] Apr, Urinary tract infection, site not specified N39.0 and Hematuria, unspecified R31.[address] [id number] Dec, [place] [id number] [place] [address] [id number] Nov, [address] [id number] Oct, Hyperlipemia, mixed E78.2 [place] [address] [place] [address] [id number] Oct, Gastroesophageal reflux disease, esophagitis presence not specified K21.9 ; Acute serous otitis media of left ear, recurrence not specified H65.02 ; Hypothyroidism, unspecified type E03.9 and Hyperlipemia, mixed E78.2 [place] [address] [place] [address] [id number] Sep, [address] [id number] Sep, Actinic keratoses L57.0 and Stuffy and runny nose J34.89 [place] [address] [place] [address] [id number] Aug, [place] [address] [place] [address] [id number] Aug, Acute cystitis with hematuria N30.[address] [id number] 16 Jul, 2015 Reflux esophagitis K21.0 ; Acquired deformities of toe, 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 ; Multiple joint pain M25.50 and Sinus congestion R09.81 [place] [address] [place] [address] [id number] Jul, [place] [address] [facility] [id number][place] [id number] Jun, Acute cystitis without hematuria N30.00 ; Dysuria R30.0 ; Flank pain R10.9 and High risk medication use Z79.899 [facility] [place] [address] [facility] [id number][place] [id number] Jun, Urinary tract infection N39.0 [facility] [place] [address] [facility] [id number][place] [id number] Jun, [facility] [place] [address] [facility] [id number], [place] [id number] Jun, Urinary tract infection, site not specified 599.0 and Encounter for immunization Z23 [facility] [address] [id number] [id number] Jun, [facility] [address] [id number] [id number] May, [facility] [place] [address] [id number] [id number] Dec, [facility] [address] [id number], [place] [address] Dec, [facility] [address]00565100[place], [place] [address]46 Dec, [facility] [address] [facility] [id number], [place] [id number] Oct, [facility] [address] [id number], [place] [address] 2546 Oct, [facility] [place] [address] [facility] [id number], [place] [id number] Sep, [facility] [address]00565100[place], [place] [address] Sep, [facility] [place] [address] [facility] [id number], [place] [id number] Sep, [facility] [address] [id number], [place] [address] Sep, [facility] [address] [id number] [place] [id number] Aug, [facility] [address] [id number] [place] [id number] Aug, [facility] [place] [facility] [address] [id number] [place] [address]- 7[address] Aug, [facility] [place] [facility] [address] [facility] 3] [id number], [place] [address]- 8[address] Aug, [facility] [address] [id number] [place] [id number] Aug, [facility] [place] [facility] [address] [facility]NOTE 3] [id number], [place] [address] Aug, [facility] [address] [facility] [id number] [place] [id number] Jul, [facility] [place] [facility] [address] [facility]NOTE 3] [id number], [place] [address] 5[address] Jul, [facility] [address] [facility] [id number], [place] [id number] Jul, [facility] [place] [facility] [address] [facility] 3] [id number], [place] [address] 4147 Jul, [facility] [address] [facility] [id number], [place] [address]0199 Jul, [facility] [place] [facility] [address] [facility]NOTE 3] [id number], [place] [address]- 1757 Jul, [facility] [address] [facility] [id number], [place] [id number] Jul, [facility] [place] [facility] [address] [facility] 3] [id number], [place] [address]- 0813 Jul, [facility] [place] [facility] [address] [facility] 3] [id number], [place]49[place]- 4646 Jun, [facility] [place] [facility] [address] [facility] 3] [id number], [place] [address]- 9943 Jun, [facility] [address] [facility] [id number], [place] [id number] Jun, [facility] [place] [facility] [address] [facility] 3] [id number] [place] [address]- 7[address] Jun, [facility] [place] [facility] [address] [facility] 3] [id number] [place] [address]- 1105 Jun, [facility] [address] [id number] [place] [address] Jun, [facility] [address] [id number] [place] [address]24[address] Jun, [facility] [place] [facility] [address] [facility] 3] [id number] [place] [address]- 5440 Jun, [facility] [address] [id number] [place] [address]28[address] Jun, [facility] [place] [facility] [address] [facility] 3] [id number], [place] [address]- 1455 Jun, [facility] [address] [facility] [id number], [place] 597328850 May, [facility] [place] [facility] [address] [facility] 3] [id number], [place] [address]- [address] May, [facility] [address] [facility] [id number], [place] [id number] May, [facility] [place] [facility] [address] [facility] 3] [id number], [place] [address]- 3501 May, [facility] [place] [facility] [address] [facility] 3] [id number], [place] [address]- 8717 Apr, [facility] [place] [facility] [address] [facility]NOTE 3] [id number], [place] 69189200- 7076 Apr, [facility] [address] [facility] [id number] [place] [id number] Apr, [facility] [place] [facility] [address] [facility]NOTE 3] [id number], [place] 40948018- 2539 Apr, [facility] [address] [facility] [id number], [place] 655667357 Mar, [facility] [place] [facility] [address] [facility] 3] [id number], [place] [address]- 2546 Mar, [facility] [address] [id number] [place] [address] Feb, [facility] [address] [id number] [place] [address]- 2546 Feb, [facility] [address] [id number] [place] [address]35[address] January, [facility] [place] [facility] [address] [id number] [place] [address]- 2546 January, [facility] [address] [id number] [place] [id number] January, [facility] [place] [facility] [address] [facility] 3] [id number] [place] [address]- 2546 January, [facility] [address] [id number] [place] [id number] Dec, [facility] [place] [facility] [address] [facility] 3] [id number], [place] [address] Dec, [facility] [address] [id number], [place] 837702465 Dec, [facility] [place] [facility] [address] [facility] 3] [id number], [place] [address] 2546 Dec, [facility] [address] [facility] [id number], [place] [id number] Nov, [facility] [place] [facility] [address] [facility] 3] [id number], [place] [address] 2546 Nov, [facility] [place] [facility] [address] [facility] 3] [id number], [place] [address]- 2546 Oct, [facility] [place] [facility] [address] [facility] 3] [id number], [place] [address]- 6486 Oct, [facility] [place] [facility] [address] [facility] 3] [id number], [place] [address] 2546 Sep, [facility] [address] [id number] [place] 2019[place] Sep, [facility] [address] [id number], [place] 407489119 Sep, [facility] [place] [facility] [address] [id number], [place] [address]- 4669 Sep, [facility] [address] [id number], [place] 075342589 Aug, [facility] [place] [facility] [address] [facility] 3] [id number], [place] [address]- 3484 Aug, [facility] [address] [id number], [place] 843726746 Jul, [facility] [place] [facility] [address] [facility] 3] [id number], [place] [address]- 1916 Jul, [facility] [address] [id number], [place] 365174572 Jul, [facility] [place] [facility] [address]00565100[place], [place] [address]- 76[address] Jul, [facility] [address] [facility] [id number], [place] 172031012 Jul, [facility] [place] [facility] [address] [facility] 3] [id number], [place] 11237601- 2727 Jul, [facility] [address] [facility] [id number], [place] 195835999 Jul, [facility] [place] [facility] [address]00565100[place], [place] [address]- 9787 Jul, [facility] [place] [facility] [address] [facility] 3] [id number], [place] [address]- 0975 Jul, [facility] [address] [id number], [place] 316996319 Jun, [facility] [place] [facility] [address] [id number], [place] [address]- 2531 Jun, [facility] [address] [id number], [place] 944179498 Jun, [facility] [address] [id number], [place] 174739328 Jun, [facility] [place] [facility] [address] [facility]] [id number], [place] [address]- 2436 Jun, [facility] [address] [id number], [place] [address]- 9996 Jun, [facility] [address] [id number], [place] 669934343 Jun, [facility] [address] [facility] [id number], [place] [address] 2546 Jun, [facility] [place] [facility] [address] [facility]] [id number], [place] [address]- 2546 Jun, [facility] [address] [id number] [place] 61486[address] May, [facility] [address] [id number] [place] 815825076 May, [facility] [address] [id number] [place] 687252942 May, [facility] [address] [id number] [place] 239022655 May, [facility] [address] [id number] [place] 893307595 Apr, [facility] [address] [id number] [place] 901189677 Feb, [facility] [address] [id number] [place] [address]18490[address] Feb, [facility] [address] [facility]] [id number], [place] [address]- 2546 Feb, [facility] [address] [id number] [place] 162[address]121 January, [facility] [address] [id number], [place] [address]- 2546 January, [facility] [address] [id number] [place] 626153979 January, [facility] [address] [id number] [place] 8635465[address] January, [facility] [address] [id number] [place] [address] January, [facility] [address] [facility]] [id number], [place] [address]- 2546 Nov, [facility] [address] [facility] 3] [id number], [place] [address]- 2546 Nov, [facility] [address] [id number], [place] 2901[address]103 Oct, [facility] [address] [id number] [place] 2738816[address] Oct, [facility] [address] [id number] [place] 790[place] Oct, [facility] [address] [id number] [place] 208814373 Oct, [facility] [place] [facility] [address] [id number], [place] [address]- 2546 Oct, [facility] [address]00565100[place], [place] [address]- 2546 Oct, [facility] [address] [id number], [place] 707826813 Sep, [facility] [address] [facility]] [id number], [place] [address]- 2546 Sep, [facility] [address] [id number], [place] 264448356 Sep, [facility] [address] [id number], [place] 892679322 Sep, [facility] [address] [id number], [place] 037379979 Jun, [facility] [address] [facility] [id number], [place] [address]- 2546 Jun, [facility] [address] [id number], [place] 965524699 May, [facility] [address] [id number], [place] 972510902 May, [facility] [address] [id number], [place] 896884386 Apr, [facility] [address] [id number], [place] [address] Apr, [facility] [address] [facility] [id number] [id number] Apr, [facility] [address] [id number] [id number] Mar, [facility] [id number], [place] [address] Feb, [facility] [id number] [id number] Nov, [facility] [id number], [place] [id number] Nov, [facility] ([facility] [id number] [place] [address] Nov, [facility] ([facility] [address] [id number], [place] [address] Nov, [facility] ([facility] [address] [id number], [place] [address] Nov, [facility] [address] [id number] [id number] Nov, [facility] [id number] [id number] Sep, [facility] [address] [id number][place] [id number] Sep, IMMUNIZATIONS No Known Immunizations SOCIAL HISTORY Never Assessed REASON FOR VISIT sore throat Pt c/o sore throat and cough, feels she is having a COPD exacerbation [facility] PLAN OF CARE Activity Details Follow Up 1 Week, prn Reason:if symptoms worsen or not improving VITAL SIGNS Height 62 in 2018-02-25 Weight 170.4 lbs 2018-02-25 Temperature 98.3 degrees Fahrenheit 2018-02-25 Heart Rate 102 bpm 2018-02-25 Respiratory Rate 22 2018-02-25 Oximetry 95 % 2018-02-25 BMI 31.16 kg/m2 2018-02-25 Blood pressure systolic 122 mmHg 2018-02-25 Blood pressure diastolic 76 mmHg 2018-02-25 MEDICATIONS Medication Instructions Dosage Frequency Start Date End Date Duration Status Amoxicillin 500 mg Orally Once a day 2 capsules 24h Feb, Feb, 10 day(s) Active Diclofenac Sodium 75 mg Orally twice a day as needed 1 tablet 30 Active Prelief 340 (65-50) MG (CA-P) Orally 8 time(s) a day 2 tablets Active Fluticasone Propionate 50 mcg/act Nasally Once a day 2 spray in each nostril 24h 0 Active Levothyroxine Sodium 75MCG Orally Once a day 1 tablet 24h Active Crestor 20 mg Orally Once a day 1 tablet 24h Active Oxybutynin Chloride 10 MG Active Benzonatate 200 mg Orally Three times a day 1 capsule 8h Feb, Feb, 14 days Active MiraLax Active Hydrochlorothiazide 25MG oral daily 1 tablet 24h 90 Active Baclofen 10 mg Orally Once a day 1 tablet with food or milk 24h Active Ventolin HFA 90 MCG/ACT Inhalation every 4 hrs 2 puffs as needed 4h 0 Active Fosamax 70 MG Orally once a week, take 30 min before eating and avoid lying down for 30 min. 1 tablet Dec, 0 days Active Omeprazole 20 mg Orally Once a day 1 capsule 24h 0 days Active RESULTS Name Result Date Reference Range STREP A (IN HOUSE) 2018-02-25 STREP A positive Control [id number] Lot # + Exp date 2020-06-28 PROCEDURES Procedure Date Ordered Result Body Site STREP A ASSAY W/OPTIC February 25, 2018 [facility] VISIT ESTABLISHED PATIENT February 25, 2018 INSTRUCTIONS MEDICATIONS ADMINISTERED No Known Medications [...] [id number] 03/06/2016 Surgical History Hemmroidectomy-Dr. YANG in [place] 2013 Hospitalization History surgeries Hospitalization History [facility] for abdominal/chest pain 07/2015 Hospitalization History Inpt for lumbar surgery x's 10 days 02/2015 Hospitalization History Pt was in [facility] for rehab from surgery, Dx with UTI
--- OUTSIDE RECORDS SUMMARY | 2018-07-27 08:30 | XMS REPORT ---
Author Author ROOPA FOSTER Organization [facility] Address [address] [place] [address] Care Team Providers Care B And B Gang Worker Name Role Phone ROOPA FOSTER Unavailable PROBLEMS Type Condition ICD9-CM Code MLP39-NV Code Onset Dates Condition Status SNOMED Code Problem Essential hypertension I10 Active 36660863 Problem Multiple joint pain M25.50 Active 28797423 Problem Acquired hypothyroidism E03.9 Active 571360811 Problem Non-seasonal allergic rhinitis due to pollen J30.1 Active 13368665 Problem Chronic fatigue R53.82 Active 18782777 Problem Neuropathy G62.9 Active 458340274 Problem Abnormal mammogram of left breast R92.8 Active 673715690 Problem Obesity (BMI 30.0-34.9) E66.9 Active 652337041504255 Problem Hypothyroidism, unspecified type E03.9 Active 86821850 Problem Memory loss 780.93 Active 41818195 Problem Primary localized osteoarthrosis, hand 715.14 Active 862120742 Problem Diverticulosis of colon (without mention of hemorrhage) 562.10 Active 523715398 Problem Unspecified hypothyroidism 244.9 Active 77750899 Problem Actinic keratosis 702.0 Active 015344555 Problem Hyperlipemia, mixed E78.2 Active 610475821 Problem Other psoriasis 696.1 Active 7001971 Problem Esophageal reflux K21.9 Active 356385446 ALLERGIES No Information ENCOUNTERS Encounter Location Date Diagnosis [facility] [address] [facility] [id number][place] [id number] Mar, Abnormal mammogram of left breast R92.8 [facility] [address] [id number][place] [id number] Mar, [facility] [address] [facility] [id number][place] [id number] Mar, [facility] [address], [place] [address] Feb, Sore throat and laryngitis J06.0 and Strep throat J02.0 [facility] [address] [id number], [place] [address] Dec, [facility] [address] [place] [address] [id number] Dec, [place] [id number] [place] [address] [id number] Dec, Dilated pore of Mk of back L70.8 ; Seborrheic keratoses L82.1 and Non- seasonal allergic rhinitis due to pollen J30.1 [place] [id number] [place] [address] [id number] Dec, [address]005[address] [id number] Oct, [address] [id number] [place] [address] [id number] Oct, Screening breast examination Z12.31 and History of abnormal mammogram Z87.898 [place] [id number] [place] [address] [id number] Sep, [address] [id number] [place] [address] [id number] Sep, [address] [id number] [place] [address] [id number] Sep, [address] [id number] [place] [address] [id number] Jun, Obesity (BMI 30.0-34.9) E66.9 ; Chronic fatigue R53.82 ; Neuropathy G62.9 ; Essential hypertension I10 and Encounter for immunization Z23 [place] [id number] [place] [address] [id number] Jun, Neuropathy G62.9 and Essential hypertension I10 [place] [id number] [place] [address] [id number] Apr, [address] [id number] Mar, Neuropathy G62.9 ; Hypothyroidism, unspecified type E03.9 ; Essential hypertension I10 ; Muscle spasm M62.838 and Hyperlipemia, mixed E78.2 [facility] [id number] [place] [address] [id number] Feb, [facility] [id number] [place] [address] [id number] January, [facility] [id number] [place] [address] [id number] Dec, [facility] [address] [id number] Dec, Hypothyroidism, unspecified type E03.9 [facility] [address] [id number] [place] [address] [id number] Nov, [facility] [address] [id number] Nov, Neuropathy G62.9 ; Sinus congestion R09.81 ; Hyperlipemia, mixed E78.2 and Hypothyroidism, unspecified type E03.9 [facility] [id number] [place] [address] [id number] Nov, Neuropathy G62.9 [facility] [id number] [place] [address] [id number] Nov, Sinus congestion R09.81 and Acquired hypothyroidism E03.9 [facility] [address] [place] [address] [id number] Nov, Acquired hypothyroidism E03.9 [facility] [address] [place] [address] [id number] Oct, [facility] [id number] [place] [address] [id number] Oct, Sinus congestion R09.81 and Neuropathy G62.9 [facility] [id number] [place] [address] [id number] Oct, Fever, unspecified R50.9 ; Sinus congestion R09.81 and Neuropathy G62.9 [facility] [place] [id number] [place] [address] Oct [facility] [id number] [place] [address] [id number] Oct, Abnormal mammogram of left breast R92.8 [place] [id number] [place] [address] [id number] Sep, Abnormal mammogram R92.8 [place] [id number] [place] [address] [id number] Sep, Acquired hypothyroidism E03.[address] [id number] Sep, Hyperlipemia, mixed E78.2 ; Hypothyroidism, unspecified type E03.9 and Essential hypertension I10 [address] [id number] Sep, Hypothyroidism, unspecified type E03.9 and Hyperlipemia, mixed E78.[address] [id number] Aug, Acute maxillary sinusitis, recurrence not specified J01.[address] [id number] Jul, Hyperlipemia, mixed E78.[address] [id number] Jul, Acquired hypothyroidism E03.9 ; Hyperlipemia, mixed E78.2 ; Multiple joint pain M25.50 ; Esophageal reflux K21.9 ; Otitis media with effusion, right H65.91 and Essential hypertension I10 [place] [id number] [place] [address] [id number] Jul, Gastroesophageal reflux disease, esophagitis presence not specified K21.9 [place] [id number] [place] [address] [id number] May, [address] [id number] Apr, Cystitis N30.90 and Well woman exam Z01.419 [place] [id number] [place] [address] [id number] Apr, Hematuria R31.9 and Dysuria R30.0 [address] [id number] Apr, [place] [id number] [place] [address] [id number] Apr, Urinary tract infection, site not specified N39.0 and Hematuria, unspecified R31.9 [place] [id number] [place] [address] [id number] Dec, [place] [id number] [place] [address] [id number] Nov, [place] [id number] [place] [address] [id number] Oct, Hyperlipemia, mixed E78.[address] [id number] Oct, Gastroesophageal reflux disease, esophagitis presence not specified K21.9 ; Acute serous otitis media of left ear, recurrence not specified H65.02 ; Hypothyroidism, unspecified type E03.9 and Hyperlipemia, mixed E78.2 [place] [id number] [place] [address] [id number] Sep, [place] [id number] [place] [address] [id number] Sep, Actinic keratoses L57.0 and Stuffy and runny nose J34.89 [place] [id number] [place] [address] [id number] Aug, [place] [id number] [place] [address] [id number] Aug, Acute cystitis with hematuria N30.01 [place] [id number] [place] [address] [id number] Jul, 2015 Reflux esophagitis K21.0 ; Acquired deformities of toe, 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 ; Multiple joint pain M25.50 and Sinus congestion R09.81 [place] [id number] [place] [address] [id number] Jul, [place] [id number] [place] [address] [id number] Jun, Acute cystitis without hematuria N30.00 ; Dysuria R30.0 ; Flank pain R10.9 and High risk medication use Z79.899 [facility] [address] [facility] [id number][place] [id number] Jun, Urinary tract infection N39.0 [facility] [address] [facility] [id number] [id number] Jun, [facility] [address] [id number][place] [id number] Jun, Urinary tract infection, site not specified 599.0 and Encounter for immunization [facility]23 [facility] [address] [facility] [id number][place] [id number] Jun, [facility] [id number], [place] [id number] May, [facility] [address] [id number], [place] [id number] Dec, [facility] [address], [place] [address] Dec, [facility] [address]005[address]100[place], [place] [address] Dec, [facility] [id number], [place] [id number] Oct, [facility] [address]005[address]100[place], [place] [address] Oct, [facility] [id number], [place] [id number] Sep, [facility] [address]00565[address], [place] [address] Sep, [facility] [address] [facility] [id number], [place] [id number] Sep, [facility] [address], [place] [address] 3[address] Sep, [facility] [address] [id number], [place] [id number] Aug, [facility] [id number], [place] [id number] Aug, [facility] [place] [facility] [address] [id number] [place] Aug, [facility] [place] [facility] [address] [id number] [place] [address]- 1488 Aug, [facility] [address] [id number] [place] [id number] Aug, [facility] [place] [facility] [address] [id number], [place] [address] 0[address] Aug, [facility] [address] [facility] [id number] [place] [id number] Jul, [facility] [place] [facility] [address] [id number] [place] [address]- 3362 Jul, [facility] [address] [facility] [id number] [place] [id number] Jul, [facility] [place] [facility] [address] [facility] [id number], [place] 14[address]- [address] Jul, [facility] [address] [facility] [id number], [place] [id number] Jul, [facility] [place] [facility] [address] [facility] [id number], [place] [address] 5[address] Jul, [facility] [address] [facility] [id number], [place] [id number] Jul, [facility] [place] [facility] [address] [facility] [id number][place]90[place]- 6[address] Jul, [facility] [place] [facility] [address] [facility] [id number], [place] [address] 20[address] Jun, [facility] [place] [facility] [address] [id number], [place] [address] 9469 Jun, [facility] [address] [facility] [id number], [place] [id number] Jun, [facility] [place] [facility] [address] [facility] [id number], [place] [address]- 4433 Jun, [facility] [place] [facility] [address] [id number] [place] [address]- 4416 Jun, [facility] [address] [id number] [place] [id number] Jun, [facility] [address] [id number] [place] [id number] Jun, [facility] [place] [facility] [address] [facility] [id number] [place] [address]- 4896 Jun, [facility] [address] [id number] [place] [id number] Jun, [facility] [place] [facility] [address] [id number] [place] [address]- 8076 Jun, [facility] [address] [id number] [place] 054385042 May, [facility] [place] [facility] [address] [facility] [id number] [place] [address]- 5113 May, [facility] [address] [facility] [id number], [place] [id number] May, [facility] [place] [facility] [address] [facility] [id number] [place]- 3943 May, [facility] [place] [facility] [address] [facility] [id number], [place] [address]- 1341 Apr, [facility] [place] [facility] [address] [facility] [id number], [place] [address]- 9799 Apr, [facility] [address] [facility] [id number], [place] [id number] Apr, [facility] [place] [facility] [address] [id number], [place] [address]- 3058 Apr, [facility] [address] [facility] [id number] [place] [id number] Mar, [facility] [place] [facility] [address] [facility] [id number] [place] [address]- 4505 Mar, [facility] [address] [facility] [id number], [place] [id number] Feb, [facility] [place] [facility] [address] [facility] [id number], [place] [address]- 0776 Feb, [facility] [address] [facility] [id number] [place] [id number] January, [facility] [place] [facility] [address] [facility] [id number] [place] [address]- 2546 January, [facility] [address] [facility] [id number] [place] [id number] January, [facility] [place] [facility] [address] [facility] [id number] [place] [address]- 2546 January, [facility] [address] [facility] [id number] [place] [id number] Dec, [facility] [place] [facility] [address] [facility] [id number], [place] [address]- 6106 Dec, [facility] [address] [facility] [id number], [place] 326744486 Dec, [facility] [place] [facility] [address] [facility] [id number], [place] [address]- 4416 Dec, [facility] [address] [facility] [id number], [place] 035947955 Nov, [facility] [place] [facility] [address] [facility] [id number], [place] [address]- 5656 Nov, [facility] [place] [facility] [address] [facility] [id number], [place] [address]- 5296 Oct, [facility] [place] [facility] [address] [facility] [id number], [place] [address]- 0326 Oct, [facility] [place] [facility] [address] [facility] [id number], [place] [address]- 6236 Sep, [facility] [address] [id number], [place] [id number] Sep, [facility] [address] [facility] [id number] [place] 939208706 Sep, [facility] [place] [facility] [address] [facility] [id number], [place] [address]- 7180 Sep, [facility] [address] [facility] [id number] [place] [id number] Aug, [facility] [address] [facility] [id number], [place] [address]- 6749 Aug, [facility] [address] [facility] [id number], [place] 524537529 Jul, [facility] [place] [facility] [address] [facility] [id number], [place] [address]- 1226 Jul, [facility] [address] [facility] [id number], [place] [id number] Jul, [facility] [address] [id number], [place] [address]- 3[address] Jul, [facility] [address] [id number], [place] [id number] Jul, [facility] [address], [place] [address]- 37[address] Jul, [facility] [address] [id number], [place] [id number] Jul, [facility] [address]100[place], [place] [address]- 7478 Jul, [facility] [place] [facility] [address]100[place], [place] [address]- 5031 Jul, [facility] [id number], [place] 650294633 Jun, [facility] [place] [facility] [address] [facility] [id number], [place] [address]- 9[address] Jun, [facility] [address] [facility] [id number], [place] [id number] Jun, [facility] [address] [facility] [id number], [place] 015060429 Jun, [facility] [place] [facility] [address]00565100[place], [place] [address]- 9654 Jun, [facility] [place] [facility] [address] [place] [address] 94608- 2546 Jun, [facility] [address] [id number] [place] [id number] Jun, [facility] [address] [facility] [id number], [place] [address]- 2546 Jun, [facility] [address] [facility] [id number], [place] [address]- 2546 Jun, [facility] [address] [id number] [place] [id number] May, [facility] [address] [id number] [place] 977830078 May, [facility] [address] [id number] [place] [id number] May, [facility] [address] [id number] [place] 701554215 May, [facility] [address] [id number] [place] 398902572 Apr, [facility] [address] [id number] [place] 990673989 Feb, [facility] [address] [id number] [place] [id number] Feb, [facility] [address] [facility] [id number], [place] [address]- 2546 Feb, [facility] [address] [id number] [place] [id number] January, [facility] [address] [facility] [id number], [place] [address]- 2546 January, [facility] [address] [id number] [place] [id number] January, [facility] [address] [id number] [place] 217422052 January, [facility] [address] [id number] [place] [id number] January, [facility] [address] [facility] [id number], [place] [address]- 8333 Nov, [facility] [place] [facility] [address] [facility] [id number], [place] [address]- 2546 Nov, [facility] [address] [id number] [place] 182778204 Oct, [facility] [address] [id number] [place] 719465307 Oct, [facility] [address] [id number] [place] [id number] Oct, [facility] [address] [id number], [place] 586010205 Oct, [facility] [address] [facility] [id number], [place] [address]- 2546 Oct, [facility] [place] [facility] [address] [facility] [id number], [place] [address]- 2546 Oct, [facility] [address] [id number], [place] 329765235 Sep, [facility] [address] [facility] [id number], [place] [address]- 4263 Sep, [facility] [address] [id number], [place] 419541180 Sep, [facility] [address] [id number], [place] 467330087 Sep, [facility] [address] [id number], [place] 026830985 Jun, [facility] [address], [place] [address]- 2546 Jun, [facility] [address] [id number], [place] 134937908 May, [facility] [address] [id number] [place] 849302526 May, [facility] [address] [id number], [place] [id number] Apr, [facility] [address] [id number], [place] 889215204 Apr, [facility] [address] [id number], [place] [id number] Apr, [facility] [address] [id number], [place] 469871159 Mar, [facility] [address], [place] [address]- 2546 Feb, [facility] [address] [id number], [place] [id number] Nov, [facility] [address] [place] [address] [id number] Nov, [facility] [id number] [place] [address] 02576- 2546 Nov, [facility] [id number] [place] [address] 84439- 2546 Nov, [facility] [address] [id number], [place] [address]- 2546 Nov, [facility] [address]65[address], [place] 484852494 Nov, [facility] [address]00565100[place], [place] 712249722 Sep, [facility] [address], [place] [id number] Sep, IMMUNIZATIONS No Known Immunizations SOCIAL HISTORY Never Assessed REASON FOR VISIT med question PLAN OF CARE VITAL SIGNS MEDICATIONS Medication Instructions Dosage Frequency Start Date End Date Duration Status Omeprazole 20 mg Orally Once a day 1 capsule 24h 0 days Active RESULTS No Results [...] L4-S1 03/06/2016 Surgical History Hemmroidectomy-Dr. YANG in [place] 2013 Hospitalization History surgeries Hospitalization History [facility] for abdominal/chest pain 07/2015 Hospitalization History Inpt for lumbar surgery x's 10 days 02/2015 Hospitalization History Pt was in [facility] for rehab from surgery, Dx with UTI -03/2016
--- OUTSIDE RECORDS SUMMARY | 2018-07-27 08:31 | XMS REPORT ---
Author Author ROOPA FOSTER Organization [facility] Address [address] [place] [address] Care Team Providers Care Sports Intern Name Role Phone ROOPA FOSTER Unavailable PROBLEMS Type Condition ICD9-CM Code EQM81-VO Code Onset Dates Condition Status SNOMED Code Problem Essential hypertension I10 Active 16882196 Problem Multiple joint pain M25.50 Active 68430956 Problem Acquired hypothyroidism E03.9 Active 170571454 Problem Non-seasonal allergic rhinitis due to pollen J30.1 Active 83644408 Problem Chronic fatigue R53.82 Active 77830676 Problem Neuropathy G62.9 Active 941722692 Problem Abnormal mammogram of left breast R92.8 Active 366134042 Problem Obesity (BMI 30.0-34.9) E66.9 Active 553959766790171 Problem Hypothyroidism, unspecified type E03.9 Active 93722675 Problem Memory loss 780.93 Active 14394169 Problem Primary localized osteoarthrosis, hand 715.14 Active 395903282 Problem Diverticulosis of colon (without mention of hemorrhage) 562.10 Active 424272984 Problem Unspecified hypothyroidism 244.9 Active 07190742 Problem Actinic keratosis 702.0 Active 372198282 Problem Hyperlipemia, mixed E78.2 Active 663660177 Problem Other psoriasis 696.1 Active 6796771 Problem Esophageal reflux K21.9 Active 309925781 ALLERGIES Substance Reaction Event Type Date Status Penicillin V Potassium hives Drug Allergy Dec, Active Biaxin hives Drug Allergy Dec, Active Amoxicillin hives Drug Allergy Dec, Active ENCOUNTERS Encounter Location Date Diagnosis [facility] [address] [facility] [id number] [id number] Mar, [facility] [address] [facility] [id number][place] [id number] Mar, [facility] [address] [facility] [id number], [place] [address] Feb, Sore throat and laryngitis J06.0 and Strep throat J02.0 [facility] [place] [facility] [address]00565[address], [place] [address] Dec, [facility] [id number] [place] [address] [id number] Dec, [place] [id number] [place] [address] [id number] Dec, Dilated pore of Mk of back L70.8 ; Seborrheic keratoses L82.1 and Non- seasonal allergic rhinitis due to pollen J30.[address] [place] [address] [id number] Dec, [address]005[address] [id number] Oct, [place] [id number] [place] [address] [id number] Oct, Screening breast examination Z12.31 and History of abnormal mammogram Z87.898 [place] [id number] [place] [address] [id number] Sep, [place] [id number] [place] [address] [id number] Sep, [address] [place] [address] [id number] Sep, [place] [id number] [place] [address] [id number] Jun, Obesity (BMI 30.0-34.9) E66.9 ; Chronic fatigue R53.82 ; Neuropathy G62.9 ; Essential hypertension I10 and Encounter for immunization Z23 [place] [id number] [place] [address] [id number] Jun, Neuropathy G62.9 and Essential hypertension I10 [place] [id number] [place] [address] [id number] Apr, [place] [id number] [place] [address] [id number] Mar, Neuropathy G62.9 ; Hypothyroidism, unspecified type E03.9 ; Essential hypertension I10 ; Muscle spasm M62.838 and Hyperlipemia, mixed E78.2 [facility] [place] [id number] [place] [address] [id number] Feb, [facility] [place] [id number] [place] [address] [id number] January, [facility] [place] [id number] [place] [address] [id number] Dec, [facility] [address] [id number] Dec, Hypothyroidism, unspecified type E03.9 [facility] [place] [id number] [place] [address] [id number] Nov, [facility] [address] [id number] Nov, Neuropathy G62.9 ; Sinus congestion R09.81 ; Hyperlipemia, mixed E78.2 and Hypothyroidism, unspecified type E03.9 [facility] [place] [id number] [place] [address] [id number] Nov, Neuropathy G62.9 [facility] [address] [place] [address] [id number] Nov, Sinus congestion R09.81 and Acquired hypothyroidism E03.9 [facility] [address] [place] [address] [id number] Nov, Acquired hypothyroidism E03.9 [facility] [address] [place] [address] [id number] Oct, [facility] [place] [id number] [place] [address] [id number] Oct, Sinus congestion R09.81 and Neuropathy G62.9 [facility] [place] [id number] [place] [address] [id number] Oct, Fever, unspecified R50.9 ; Sinus congestion R09.81 and Neuropathy G62.9 [facility] [place] [address] [id number] [address] Oct [facility] [place] [id number] [place] [address] [id number] Oct, Abnormal mammogram of left breast R92.8 [place] [id number] [place] [address] [id number] Sep, Abnormal mammogram R92.[address] [id number] Sep, Acquired hypothyroidism E03.[address] [id number] Sep, Hypothyroidism, unspecified type E03.9 ; Hyperlipemia, mixed E78.2 and Essential hypertension I10 [address] [id number] Sep, Hypothyroidism, unspecified type E03.9 and Hyperlipemia, mixed E78.[address] [id number] Aug, Acute maxillary sinusitis, recurrence not specified J01.[address] [id number] Jul, Hyperlipemia, mixed E78.[address] [id number] Jul, Acquired hypothyroidism E03.9 ; Hyperlipemia, mixed E78.2 ; Multiple joint pain M25.50 ; Esophageal reflux K21.9 ; Otitis media with effusion, right H65.91 and Essential hypertension I10 [place] [id number] [place] [address] [id number] Jul, Gastroesophageal reflux disease, esophagitis presence not specified K21.9 [place] [id number] [place] [address] [id number] May, [address] [id number] Apr, Cystitis N30.90 and Well woman exam Z01.419 [place] [id number] [place] [address] [id number] Apr, Hematuria R31.9 and Dysuria R30.[address] [place] [id number] Apr, [place] [id number] [place] [address] [id number] Apr, Urinary tract infection, site not specified N39.0 and Hematuria, unspecified R31.[address] [id number] Dec, [address] [id number] Nov, [address] [id number] Oct, Hyperlipemia, mixed E78.[address] [id number] Oct, Gastroesophageal reflux disease, esophagitis presence not specified K21.9 ; Acute serous otitis media of left ear, recurrence not specified H65.02 ; Hyperlipemia, mixed E78.2 and Hypothyroidism, unspecified type E03.9 [place] [id number] [place] [address] [id number] Sep, [address] [id number] Sep, Actinic keratoses L57.0 and Stuffy and runny nose J34.89 [place] [id number] [place] [address] [id number] Aug, [address] [id number] Aug, Acute cystitis with hematuria N30.[address] [id number] 16 Jul, 2015 Reflux esophagitis K21.0 ; Acquired deformities of toe, 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 ; Multiple joint pain M25.50 and Sinus congestion R09.81 [place] [id number] [place] [address] [id number] Jul, [place] [id number] [place] [address] [id number] Jun, Acute cystitis without hematuria N30.00 ; Dysuria R30.0 ; Flank pain R10.9 and High risk medication use Z79.899 [facility] [id number] [id number] Jun, Urinary tract infection N39.0 [facility] Levy[address] [facility] [id number][place] [id number] Jun, [facility] [address] [place] [id number] [id number] Jun, Urinary tract infection, site not specified 599.0 and Encounter for immunization Z23 [facility] [address] [facility] [id number][place] [phone] Jun, [facility] [id number], [place] [id number] May, [facility] [place] [id number], [place] [id number] Dec, [facility] [facility] [address], [place] [address] Dec, [facility] [place] [facility] [address], [place] [address] Dec, [facility] [id number], [place] [id number] Oct, [facility] [place] [facility] [address], [place] [address] Oct, [facility] [address] [place] [id number], [place] [id number] Sep, [facility] [place] [facility] [address]65[address], [place] [address] Sep, [facility] [address] [facility] [id number][place] [id number] Sep, [facility] [place] [facility] [address]65[address], [place] [address] Sep, [facility] [place] [address] [place] [id number], [place] [id number] Aug, [facility] [id number], [place] [id number] Aug, [facility] [place] [facility] [address] [id number] [place] [address] Aug, [facility] [place] [facility] [address] [id number] [place] [address] Aug, [facility] [address] [id number] [place] [id number] Aug, [facility] [place] [facility] [address] [id number] [place] [address] Aug, [facility] [address] [id number] [place] [id number] Jul, [facility] [place] [facility] [address] [id number] [place] Jul, [facility] [address] [facility] [id number], [place] [id number] Jul, [facility] [place] [facility] [address] [facility] [id number], [place] Jul, [facility] [address] [facility] [id number][place] [id number] Jul, [facility] [place] [facility] [address] [facility] [id number], [place] [address] Jul, [facility] [address] [facility] [id number], [place] [id number] Jul, [facility] [place] [facility] [address] [facility] [id number], [place] Jul, [facility] [place] [facility] [address] [facility] [id number], [place] [address] Jun, [facility] [place] [facility] [address] [id number], [place] Jun, [facility] [address] [facility] [id number], [place] [id number] Jun, [facility] [place] [facility] [address] [facility] [id number], [place] [address] Jun, [facility] [place] [facility] [address] [facility] [id number] [place] [address] Jun, [facility] [address] [id number] [place] [id number] Jun, [facility] [address] [id number] [place] [id number] Jun, [facility] [place] [facility] [address] [facility] [id number] [place] [address] Jun, [facility] [address] [id number] [place] [id number] Jun, [facility] [place] [facility] [address] [id number] [place] [address] Jun, [facility] [address] [id number] [place] [id number] May, [facility] [place] [facility] [address] [facility] [id number] [place] [address] May, [facility] [address] [facility] [id number], [place] [id number] May, [facility] [place] [facility] [address] [facility] [id number] [place] May, [facility] [place] [facility] [address] [facility] [id number] [place] Apr, [facility] [place] [facility] [address] [facility] [id number], [place] [address] Apr, [facility] [address] [facility] [id number] [place] [id number] Apr, [facility] [place] [facility] [address] [facility] [id number] [place] [address] Apr, [facility] [address] [facility] [id number] [place] [id number] Mar, [facility] [place] [facility] [address] [facility] [id number] [place] [address] Mar, [facility] [address] [facility] [id number] [place] [id number] Feb, [facility] [place] [facility] [address] [facility] [id number] [place] [address] Feb, [facility] [address] [facility] [id number] [place] [id number] January, [facility] [place] [facility] [address] [facility] [id number] [place] [address] 25[address] January, [facility] [address] [facility] [id number] [place] [id number] January, [facility] [place] [facility] [address] [facility] [id number] [place] [address]- [address] January, [facility] [address] [facility] [id number] [place] [id number] Dec, [facility] [place] [facility] [address] [facility] [id number], [place] [address] Dec, [facility] [address] [facility] [id number] [place] [id number] Dec, [facility] [place] [facility] [address] [facility] [id number], [place] [address] 2546 Dec, [facility] [address] [facility] [id number] [place] [id number] Nov, [facility] [place] [facility] [address] [facility] [id number], [place] [address] Nov, [facility] [place] [facility] [address] [place] [id number], [place] [address] Oct, [facility] [place] [facility] [address] [facility] [id number], [place] [address] Oct, [facility] [place] [facility] [address] [facility] [id number] [place] [address]- [address] Sep, [facility] [address] [facility] [id number] [place] [id number] Sep, [facility] [address] [facility] [id number] [place] [id number] Sep, [facility] [place] [facility] [address] [facility] [id number], [place] [address] Sep, [facility] [address] [id number] [place] [id number] Aug, [facility] [place] [facility] [address] [facility] [id number], [place] [address] Aug, [facility] [address] [facility] [id number], [place] [id number] Jul, [facility] [place] [facility] [address] [facility] [id number], [place] [address]- [address] Jul, [facility] [address] [id number] [place] [id number] Jul, [facility] [place] [facility] [address] [facility] [id number], [place] [address] Jul, [facility] [address] [facility] [id number], [place] [id number] Jul, [facility] [place] [facility] [address]65[address], [place] [address] Jul, [facility] [address] [facility] [id number], [place] [id number] Jul, [facility] [place] [facility] [address], [place] [address] Jul, [facility] [place] [facility] [address] [place] [address] [id number], [place] [address] Jul, [facility] [address] [facility] [id number], [place] [id number] Jun, [facility] [place] [facility] [address] [facility] [id number], [place] [address]- [address] Jun, [facility] [address] [facility] [id number], [place] 232115721 Jun, [facility] [address] [facility] [id number], [place] 387856051 Jun, [facility] [place] [facility] [address] [facility] [id number], [place] [address]- [address] Jun, [facility] [place] [facility] [address] [facility] [id number], [place] [address]2483203- [address] Jun, [facility] [address] [id number] [place] [id number] Jun, [facility] [address] [facility] [id number], [place] [address]- [address] Jun, [facility] [address] [facility] [id number], [place] [address]- 25[address] Jun, [facility] [address] [id number] [place] [id number] May, [facility] [address] [id number] [place] [id number] May, [facility] [address] [id number] [place] [id number] May, [facility] [address] [id number] [place] [id number] May, [facility] [address] [id number] [place] [id number] Apr, [facility] [address] [id number] [place] [id number] Feb, [facility] [address] [id number] [place] 905712171 Feb, [facility] [address], [place] [address]- [address] Feb, [facility] [address] [id number] [place] 6421826[address] January, [facility] [address], [place] [address]- [address] January, [facility] [address] [id number] [place] [id number] January, [facility] [address] [id number] [place] [id number] January, [facility] [address] [id number] [place] [id number] January, [facility] [address]65100[place], [place] [address]- [address] Nov, [facility] [place] [facility] [address] [facility] [id number], [place] [address]- 2546 Nov, [facility] [address] [id number] [place] [id number] Oct, [facility] [address] [id number] [place] [id number] Oct, [facility] [address] [id number] [place] 077468016 Oct, [facility] [address] [id number] [place] [id number] Oct, [facility] [address] [facility] [id number], [place] [address]- [address] Oct, [facility] [address] [facility] [id number], [place] [address]- 359[address] Oct, [facility] [address] [id number], [place] 734503462 Sep, [facility] [address] [facility] [id number], [place] [address]- [address] Sep, [facility] [address] [id number], [place] 032042488 Sep, [facility] [address] [id number], [place] 599407273 Sep, [facility] [address] [id number], [place] [id number] Jun, [facility] [address] [facility] [id number], [place] [address]- 2546 Jun, [facility] [address] [id number], [place] [address]23820 May, [facility] [address] [id number] [place] [id number] May, [facility] [address] [id number] [place] 055462692 Apr, [facility] [address] [id number] [place] [id number] Apr, [facility] [address] [id number] [place] [address] Apr, [facility] [address] [facility] [id number] [place] [address] Mar, [facility] [place] [facility] [address] [facility] [id number], [place] [address]- 2546 Feb, [facility] [address] [id number], [place] [address]407 Nov, [facility] [address] [id number], [place] 825296699 Nov, [facility] [place] [facility] [address] [facility] [id number], [place] [address]- 2546 Nov, [facility] [place] [facility] [address]65[address], [place] [address]- 2546 Nov, [facility] [place] [facility] [address], [place] [address]- [address] Nov, [facility] [address] [id number], [place] [id number] Nov, [facility] [address] [id number], [place] 899033295 Sep, [facility] [address] [id number], [place] [id number] Sep, IMMUNIZATIONS No Known Immunizations SOCIAL HISTORY Never Assessed REASON FOR VISIT skin tag removal- meir THAYER, black head cleaning PLAN OF CARE Activity Details Follow Up prn Reason: VITAL SIGNS Height 62 in 2017-12-24 Weight 171 lbs 2017-12-24 Temperature 99.2 degrees Fahrenheit 2017-12-24 Heart Rate 98 bpm 2017-12-24 Respiratory Rate 20 2017-12-24 BMI 31.27 kg/m2 2017-12-24 Blood pressure systolic 120 mmHg 2017-12-24 Blood pressure diastolic 88 mmHg 2017-12-24 MEDICATIONS Medication Instructions Dosage Frequency Start Date End Date Duration Status Diclofenac Sodium 75 mg Orally twice a day as needed 1 tablet 30 Active Hydrochlorothiazide 25MG oral daily 1 tablet 24h 90 Active MiraLax Active Baclofen 10 mg Orally Once a day 1 tablet with food or milk 24h 0 Active Levothyroxine Sodium 75MCG Orally Once a day 1 tablet 24h Active Fluticasone Propionate 50 mcg/act Nasally Once a day 2 spray in each nostril 24h 0 Active Oxybutynin Chloride 10 MG Active Omeprazole 20 mg Orally 2 times a day 1 capsule 12h 30 Active Fosamax 70 MG Orally once a week, take 30 min before eating and avoid lying down for 30 min. 1 tablet Dec, 0 days Active Crestor 20 mg Orally Once a day 1 tablet 24h Active Toviaz 4 MG Orally Once a day 1 tablet 24h Unknown Prelief 340 (65-50) MG (CA-P) Orally 8 time(s) a day 2 tablets Active Ventolin HFA 90 MCG/ACT Inhalation every 4 hrs 2 puffs as needed 4h 0 Active Boniva 150 MG Orally Once per month 1 tablet Unknown RESULTS No Results PROCEDURES Procedure Date Ordered Result Body Site [facility] VISIT ESTABLISHED PATIENT December 24, 2017 INSTRUCTIONS MEDICATIONS ADMINISTERED No Known Medications MEDICAL [...] L4-S1 03/06/2016 Surgical History Hemmroidectomy-Dr. YANG in [place] 2013 Hospitalization History surgeries Hospitalization History [facility] for abdominal/chest pain 07/2015 Hospitalization History Inpt for lumbar surgery x's 10 days 02/2015 Hospitalization History Pt was in [facility] for rehab from surgery, Dx with UTI -03/2016
--- OUTSIDE RECORDS SUMMARY | 2018-07-27 08:31 | XMS REPORT ---
Author Author ROOPA FOSTER Organization [facility] Address [address] [place] [address] Care Team Providers Care Wood Cutter Name Role Phone ROOPA FOSTER Unavailable PROBLEMS Type Condition ICD9-CM Code UOG84-KE Code Onset Dates Condition Status SNOMED Code Problem Essential hypertension I10 Active 85304102 Problem Multiple joint pain M25.50 Active 90986183 Problem Acquired hypothyroidism E03.9 Active 157867275 Problem Non-seasonal allergic rhinitis due to pollen J30.1 Active 65495683 Problem Chronic fatigue R53.82 Active 09726423 Problem Neuropathy G62.9 Active 967401019 Problem Abnormal mammogram of left breast R92.8 Active 666270186 Problem Obesity (BMI 30.0-34.9) E66.9 Active [id number] Problem Hypothyroidism, unspecified type E03.9 Active 44436231 Problem Memory loss 780.93 Active 16367439 Problem Primary localized osteoarthrosis, hand 715.14 Active 826969600 Problem Diverticulosis of colon (without mention of hemorrhage) 562.10 Active 885320931 Problem Unspecified hypothyroidism 244.9 Active 76137127 Problem Actinic keratosis 702.0 Active 052718942 Problem Hyperlipemia, mixed E78.2 Active 282299500 Problem Other psoriasis 696.1 Active 7719074 Problem Esophageal reflux K21.9 Active 033099649 ALLERGIES No Information ENCOUNTERS Encounter Location Date Diagnosis [facility] [address] [facility] [id number] [id number] Mar, Abnormal mammogram of left breast R92.8 [facility] [address] [id number] [id number] Mar, [facility] [address] [facility] [id number] [id number] Mar, [facility] [address]00565100[place], [place] [address] Feb, Sore throat and laryngitis J06.0 and Strep throat J02.0 [facility] [address] [id number], [place] [address] Dec, [facility] [address] [place] [address] [id number] Dec, [id number] [place] [address] [id number] Dec, Dilated pore of Mk of back L70.8 ; Seborrheic keratoses L82.1 and Non- seasonal allergic rhinitis due to pollen J30.1 [id number] [place] [address] [id number] Dec, [address]00565100[place] [id number] Oct, [id number] [place] [address] [id number] Oct, Screening breast examination Z12.31 and History of abnormal mammogram Z87.898 [id number] [place] [address] [id number] Sep, [id number] [place] [address] [id number] Sep, [id number] [place] [address] [id number] Sep, [id number] [place] [address] [id number] Jun, Obesity (BMI 30.0-34.9) E66.9 ; Chronic fatigue R53.82 ; Neuropathy G62.9 ; Essential hypertension I10 and Encounter for immunization Z23 [id number] [place] [address] [id number] Jun, Neuropathy G62.9 and Essential hypertension I10 [id number] [place] [address] [id number] Apr, [address] [id number] Mar, Neuropathy G62.9 ; Hypothyroidism, unspecified type E03.9 ; Essential hypertension I10 ; Muscle spasm M62.838 and Hyperlipemia, mixed E78.2 [facility] [id number] [place] [address] [id number] Feb, [facility] [id number] [place] [address] [id number] January, [facility] [id number] [place] [address] [id number] Dec, [facility] [address] [id number] Dec, Hypothyroidism, unspecified type E03.9 [facility] [id number] [place] [address] [id number] Nov, [facility] [address] [id number] Nov, Neuropathy G62.9 ; Sinus congestion R09.81 ; Hyperlipemia, mixed E78.2 and Hypothyroidism, unspecified type E03.9 [facility] [id number] [place] [address] [id number] Nov, Neuropathy G62.9 [facility] [id number] [place] [address] [id number] Nov, Sinus congestion R09.81 and Acquired hypothyroidism E03.9 [facility] [address] [place] [address] [id number] Nov, Acquired hypothyroidism E03.9 [facility] [address] [place] [address] [id number] Oct, [facility] [id number] [place] [address] [id number] Oct, Sinus congestion R09.81 and Neuropathy G62.9 [facility] [id number] [place] [address] [id number] Oct, Fever, unspecified R50.9 ; Sinus congestion R09.81 and Neuropathy G62.9 [facility] [place] [id number] [address] Oct [facility] [id number] [place] [address] [id number] Oct, Abnormal mammogram of left breast R92.8 [id number] [place] [address] [id number] Sep, Abnormal mammogram R92.8 [id number] [place] [address] [id number] Sep, Acquired hypothyroidism E03.[address] [id number] Sep, Hyperlipemia, mixed E78.2 ; Hypothyroidism, unspecified type E03.9 and Essential hypertension I10 [address] [id number] Sep, Hypothyroidism, unspecified type E03.9 and Hyperlipemia, mixed E78.[address] [id number] Aug, Acute maxillary sinusitis, recurrence not specified J01.[address] [id number] Jul, Hyperlipemia, mixed E78.[address] [id number] Jul, Acquired hypothyroidism E03.9 ; Hyperlipemia, mixed E78.2 ; Multiple joint pain M25.50 ; Esophageal reflux K21.9 ; Otitis media with effusion, right H65.91 and Essential hypertension I10 [id number] [place] [address] [id number] Jul, Gastroesophageal reflux disease, esophagitis presence not specified K21.9 [address] [id number] [place] [address] [id number] May, [address] [id number] Apr, Cystitis N30.90 and Well woman exam Z01.419 [id number] [place] [address] [id number] Apr, Hematuria R31.9 and Dysuria R30.0 [address] [id number] Apr, [id number] [place] [address] [id number] Apr, Urinary tract infection, site not specified N39.0 and Hematuria, unspecified R31.9 [id number] [place] [address] [id number] Dec, [id number] [place] [address] [id number] Nov, [id number] [place] [address] [id number] Oct, Hyperlipemia, mixed E78.[address] [id number] Oct, Gastroesophageal reflux disease, esophagitis presence not specified K21.9 ; Acute serous otitis media of left ear, recurrence not specified H65.02 ; Hypothyroidism, unspecified type E03.9 and Hyperlipemia, mixed E78.2 [id number] [place] [address] [id number] Sep, [id number] [place] [address] [id number] Sep, Actinic keratoses L57.0 and Stuffy and runny nose J34.89 [id number] [place] [address] [id number] Aug, [id number] [place] [address] [id number] Aug, Acute cystitis with hematuria N30.01 [id number] [place] [address] [id number] 16 Jul, 2015 Reflux esophagitis K21.0 ; Acquired deformities of toe, 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 ; Multiple joint pain M25.50 and Sinus congestion R09.81 [id number] [place] [address] [id number] Jul, [id number] [place] [address] [id number] Jun, Acute cystitis without hematuria N30.00 ; Dysuria R30.0 ; Flank pain R10.9 and High risk medication use Z79.899 [facility] [address] [facility] [id number] [id number] Jun, Urinary tract infection N39.0 [facility] [address] [facility] [id number][place] [id number] Jun, [facility] [address] [id number], [place] [id number] Jun, Urinary tract infection, site not specified 599.0 and Encounter for immunization Z23 [facility] [place] [address] [facility] [id number][place] [id number] Jun, [facility] [id number], [place] [id number] May, [facility] [place] [address] [id number], [place] [id number] Dec, [facility] [address]65100[place], [place] [address] Dec, [facility] [address]65100[place], [place] [address] Dec, [facility] [id number], [place] [id number] Oct, [facility] [address]100[place], [place] [address] Oct, [facility] [id number], [place] [id number] Sep, [facility] [address]65100[place], [place] [address] Sep, [facility] [address] [facility] [id number], [place] [id number] Sep, [facility] [address]65100[place], [place] [address] Sep, [facility] [address] [id number], [place] [id number] Aug, [facility] [id number], [place] [id number] Aug, [facility] [place] [facility] [address] [id number] [place] Aug, [facility] [place] [facility] [address] [id number] [place] [address] Aug, [facility] [address] [id number] [place] [id number] Aug, [facility] [place] [facility] [address] [id number], [place] [address] Aug, [facility] [address] [facility] [id number] [place] [id number] Jul, [facility] [place] [facility] [address] [id number] [place] [address]- 07[address] Jul, [facility] [address] [facility] [id number] [place] [id number] Jul, [facility] [place] [facility] [address] [facility] [id number][place] [address] Jul, [facility] [address] [facility] [id number], [place] [id number] Jul, [facility] [place] [facility] [address] [facility] [id number], [place] [address] Jul, [facility] [address] [facility] [id number], [place] [id number] Jul, [facility] [place] [facility] [address] [facility] [id number], [place] Jul, [facility] [place] [facility] [address] [facility] [id number], [place] [address]- 9[address] Jun, [facility] [place] [facility] [address] [id number], [place] [address] 33[address] Jun, [facility] [address] [facility] [id number], [place] [id number] Jun, [facility] [place] [facility] [address] [facility] [id number], [place] [address] 6[address] Jun, [facility] [place] [facility] [address] [id number] [place] [address]- 5[address] Jun, [facility] [address] [id number] [place] [id number] Jun, [facility] [address] [id number] [place] [id number] Jun, [facility] [place] [facility] [address] [facility] [id number] [place] [address]- 9206 Jun, [facility] [address] [id number] [place] [id number] Jun, [facility] [place] [facility] [address] [id number] [place] [address]- 7[address] Jun, [facility] [address] [id number] [place] [id number] May, [facility] [place] [facility] [address] [facility] [id number] [place] [address]- 4461 May, [facility] [address] [facility] [id number], [place] [id number] May, [facility] [place] [facility] [address] [facility] [id number] [place] 98[address] May, [facility] [place] [facility] [address] [facility] [id number], [place] [address]- 38[address] Apr, [facility] [place] [facility] [address] [facility] [id number], [place] [address]- 1498 Apr, [facility] [address] [facility] [id number], [place] [id number] Apr, [facility] [place] [facility] [address] [id number], [place] [address] 8[address] Apr, [facility] [address] [facility] [id number] [place] [id number] Mar, [facility] [place] [facility] [address] [facility] [id number] [place] [address]- 6177 Mar, [facility] [address] [facility] [id number], [place] [id number] Feb, [facility] [place] [facility] [address] [facility] [id number], [place] [address]- 93[address] Feb, [facility] [address] [facility] [id number] [place] [id number] January, [facility] [place] [facility] [address] [facility] [id number] [place] [address]- 2546 January, [facility] [address] [facility] [id number] [place] [id number] January, [facility] [place] [facility] [address] [facility] [id number] [place] [address]- 2546 January, [facility] [address] [facility] [id number] [place] [id number] Dec, [facility] [place] [facility] [address] [facility] [id number], [place] [address]- 8[address] Dec, [facility] [address] [facility] [id number], [place] 510775375 Dec, [facility] [place] [facility] [address] [facility] [id number], [place] [address]- 9096 Dec, [facility] [address] [facility] [id number], [place] [id number] Nov, [facility] [place] [facility] [address] [facility] [id number], [place] [address]- 48[address] Nov, [facility] [place] [facility] [address] [facility] [id number], [place] [address]- 5686 Oct, [facility] [place] [facility] [address] [facility] [id number], [place] [address]- 7456 Oct, [facility] [place] [facility] [address] [facility] [id number], [place] [address]- 4746 Sep, [facility] [address] [id number], [place] 845164025 Sep, [facility] [address] [facility] [id number] [place] 885370507 Sep, [facility] [place] [facility] [address] [facility] [id number], [place] [address]- 9[address] Sep, [facility] [address] [facility] [id number] [place] [id number] Aug, [facility] [address] [facility] [id number], [place] [address]- [address] Aug, [facility] [address] [facility] [id number], [place] [id number] Jul, [facility] [place] [facility] [address] [facility] [id number], [place] [address]- [address] Jul, [facility] [address] [facility] [id number], [place] [id number] Jul, [facility] [address] [id number], [place] [address]- [address] Jul, [facility] [address] [id number], [place] [id number] Jul, [facility] [address]00565100[place], [place] [address]- 8[address] Jul, [facility] [address] [id number], [place] 546182513 Jul, [facility] [address]100[place], [place] [address]- 0[address] Jul, [facility] [place] [facility] [address]00565100[place], [place] [address]- 6651 Jul, [facility] [id number], [place] 290631729 Jun, [facility] [place] [facility] [address] [facility] [id number], [place] [address]- 1758 Jun, [facility] [address] [facility] [id number], [place] 639847382 Jun, [facility] [address] [facility] [id number], [place] 107416518 Jun, [facility] [place] [facility] [address]00565100[place], [place] [address]- 28[address] Jun, [facility] [place] [facility] [address] [place] [address]- 2546 Jun, [facility] [address] [id number] [place] 412020966 Jun, [facility] [address] [facility] [id number], [place] [address]- 2546 Jun, [facility] [address] [facility] [id number], [place] [address]- 2546 Jun, [facility] [address] [id number] [place] [id number] May, [facility] [address] [id number] [place] 780104915 May, [facility] [address] [id number] [place] [id number] May, [facility] [address] [id number] [place] 786087677 May, [facility] [address] [id number] [place] 610292983 Apr, [facility] [address] [id number] [place] [id number] Feb, [facility] [address] [id number] [place] 349085704 Feb, [facility] [address] [facility] [id number], [place] [address]- 2546 Feb, [facility] [address] [id number] [place] [id number] January, [facility] [address] [facility] [id number], [place] [address]- 2546 January, [facility] [address] [id number] [place] [id number] January, [facility] [address] [id number] [place] 840252429 January, [facility] [address] [id number] [place] 203719914 January, [facility] [address] [facility] [id number], [place] [address]- 0239 Nov, [facility] [place] [facility] [address] [facility] [id number], [place] [address]- 2546 Nov, [facility] [address] [id number] [place] 580964468 Oct, [facility] [address] [id number] [place] 420983510 Oct, [facility] [address] [id number] [place] 393763327 Oct, [facility] [address] [id number], [place] 838920691 Oct, [facility] [address] [facility] [id number], [place] [address]- 2546 Oct, [facility] [place] [facility] [address] [facility] [id number], [place] [address]- 2546 Oct, [facility] [address] [id number], [place] 054128157 Sep, [facility] [address] [facility] [id number], [place] [address]- 7203 Sep, [facility] [address] [id number], [place] 242119066 Sep, [facility] [address] [id number], [place] 332832376 Sep, [facility] [address] [id number], [place] 778324002 Jun, [facility] [address]00565100[place], [place] [address]- 2546 Jun, [facility] [address] [id number], [place] 125099949 May, [facility] [address] [id number] [place] 810522108 May, [facility] [address] [id number], [place] 793318491 Apr, [facility] [address] [id number], [place] 240119942 Apr, [facility] [address] [id number], [place] 173859828 Apr, [facility] [address] [id number], [place] [id number] Mar, [facility] [address]00565100[place], [place] [address]- 2546 Feb, [facility] [address] [id number], [place] 157502802 Nov, [facility] [id number] [place] [address] [id number] Nov, [facility] [id number] [place] [address]- 2546 Nov, [facility] [id number] [place] [address]- 2546 Nov, [facility] [address] [id number], [place] [address]- 2546 Nov, [facility] [address]00565[address] 816267602 Nov, [facility] [address]00565[address], [place] 587[address]2908 Sep, [facility] [address]65[address], [place] 4936[address]990 Sep, IMMUNIZATIONS No Known Immunizations SOCIAL HISTORY Never Assessed REASON FOR VISIT Medication notice PLAN OF CARE VITAL SIGNS MEDICATIONS Unknown [...] L4-S1 03/06/2016 Surgical History Hemmroidectomy-Dr. YANG in [facility] 2013 Hospitalization History surgeries Hospitalization History [facility] for abdominal/chest pain 07/2015 Hospitalization History In for lumbar surgery x's 10 days 02/2015 Hospitalization History Pt was in [facility] for rehab from surgery, Dx with UTI
--- OUTSIDE RECORDS SUMMARY | 2018-07-27 08:32 | XMS REPORT ---
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 Name Role Phone YU WEBSTER CP Unavailable Allergies No Known Allergies Problems Problem Type Condition Code Onset Dates Condition Status Problem Esophageal reflux 530.81 Active Problem Acute maxillary sinusitis 461.0 Active Problem Sciatica 724.3 Active Problem Actinic keratosis 702.0 Active Problem Acute bronchitis 466.0 Active Problem Diverticulosis of colon (without mention of hemorrhage) 562.10 Active Problem External hemorrhoids with other complication 455.5 Active Problem Internal hemorrhoids without mention of complication 455.0 Active Problem Abdominal pain, left lower quadrant 789.04 Active Problem Unspecified constipation 564.00 Active Problem Primary localized osteoarthrosis, hand 715.14 Active Problem Degeneration of intervertebral disc, site unspecified 722.6 Active Problem Other and unspecified hyperlipidemia 272.4 Active Problem Acute upper respiratory infections of unspecified site 465.9 Active Problem Allergic rhinitis due to pollen 477.0 Active Problem Chronic airway obstruction, not elsewhere classified 496 Active 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 Problem Benign paroxysmal positional vertigo 386.11 Active Problem Other psoriasis 696.1 Active Problem Unspecified breast screening V76.10 Active Problem 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 Problem Unspecified hypothyroidism 244.9 Active Problem Lumbago 724.2 Active Problem Need for prophylactic vaccination and inoculation, Influenza V04.81 Active Problem Urinary tract infection, site not specified 599.0 Active Problem Pain in joint, hand 719.44 Active Problem Pain in joint, site unspecified 719.40 Active Problem Rash and other nonspecific skin eruption 782.1 Active Problem Hirsutism 704.1 Active Problem Unspecified backache 724.5 Active Problem Acute sinusitis, unspecified 461.9 Active Problem Pain in joint, shoulder region 719.41 Active Problem Anal fissure 565.0 Active Problem Memory loss 780.93 Active Problem Dysphagia, unspecified 787.20 Active Problem Pain in soft tissues of limb 729.5 Active Problem Personal history of colonic polyps V12.72 Active Medications Medication Code System Code Instructions Start Date End Date Status Dosage Turonor [facility] [place] [address]-68 10 MG Orally Once a day Jul 15, 2015 1 tablet Results No Known Results Summary Purpose eClinicalWorks Submission
--- OUTSIDE RECORDS SUMMARY | 2018-07-27 08:32 | XMS REPORT ---
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 Name Role Phone ROOPA FOSTER Unavailable PROBLEMS Type Condition ICD9-CM Code XKE06-BL Code Onset Dates Condition Status SNOMED Code Problem Essential hypertension I10 Active 27562694 Problem Multiple joint pain M25.50 Active 05814009 Problem Acquired hypothyroidism E03.9 Active 375131540 Problem Non-seasonal allergic rhinitis due to pollen J30.1 Active 02008312 Problem Chronic fatigue R53.82 Active 30685687 Problem Neuropathy G62.9 Active 307574924 Problem Abnormal mammogram of left breast R92.8 Active 525167455 Problem Obesity (BMI 30.0-34.9) E66.9 Active [id number] Problem Hypothyroidism, unspecified type E03.9 Active 72703081 Problem Memory loss 780.93 Active 75539708 Problem Primary localized osteoarthrosis, hand 715.14 Active 345888306 Problem Diverticulosis of colon (without mention of hemorrhage) 562.10 Active 819709999 Problem Unspecified hypothyroidism 244.9 Active 92614904 Problem Actinic keratosis 702.0 Active 053723088 Problem Hyperlipemia, mixed E78.2 Active 649282610 Problem Other psoriasis 696.1 Active 8366091 Problem Esophageal reflux K21.9 Active 350816538 ALLERGIES No Information ENCOUNTERS Encounter Location Date Diagnosis [facility] [address] [facility] [id number] [id number] Mar, [facility] [address] [facility] [id number][place] [id number] Mar, [facility] [address] [id number], [place] [address] Feb, Sore throat and laryngitis J06.0 and Strep throat J02.0 [facility] [address] [id number][place] [address] Dec, [id number] [place] [address] [id number] Dec, [place] [id number] [place] [address] [id number] Dec, Dilated pore of Mk of back L70.8 ; Seborrheic keratoses L82.1 and Non- seasonal allergic rhinitis due to pollen J30.1 [facility] [address]00565[address] [id number] Dec, [address]100[place] [id number] Oct, [address] [place] [address] [id number] Oct, Screening breast examination Z12.31 and History of abnormal mammogram Z87.898 [place] [id number] [place] [address] [id number] Sep, [address]100[place] [id number] Sep, [address] [place] [address] [id number] Sep, [place] [id number] [place] [address] [id number] Jun, Obesity (BMI 30.0-34.9) E66.9 ; Chronic fatigue R53.82 ; Neuropathy G62.9 ; Essential hypertension I10 and Encounter for immunization Z23 [facility] [address] [id number] Jun, Neuropathy G62.9 and Essential hypertension I10 [address] [place] [address] [id number] Apr, [place] [id number] [place] [address] [id number] Mar, Neuropathy G62.9 ; Hypothyroidism, unspecified type E03.9 ; Essential hypertension I10 ; Muscle spasm M62.838 and Hyperlipemia, mixed E78.[address] [id number] [id number] Feb, [facility] [place] [id number] [place] [address] [id number] January, [facility] [place] [id number] [place] [address] [id number] Dec, [facility] [address] [place] [address] [id number] Dec, Hypothyroidism, unspecified type E03.9 [facility] [place] [id number] [place] [address] [id number] Nov, [facility] [place] [id number] [place] [address] [id number] Nov, Neuropathy G62.9 ; Sinus congestion R09.81 ; Hyperlipemia, mixed E78.2 and Hypothyroidism, unspecified type E03.9 [facility] [address] [place] [address] [id number] Nov, Neuropathy G62.9 [facility] [address] [place] [address] [id number] Nov, Sinus congestion R09.81 and Acquired hypothyroidism E03.9 [place] [id number] [place] [address] [id number] Nov, Acquired hypothyroidism E03.9 [address] [place] [address] [id number] Oct, [address] [place] [address] [id number] Oct, Sinus congestion R09.81 and Neuropathy G62.9 [facility] [address]00565100[place] [id number] Oct, Fever, unspecified R50.9 ; Sinus congestion R09.81 and Neuropathy G62.9 [facility] [place] [address] [id number] [place] [address] Oct [facility] [place] [address] [facility] [id number][place] [id number] Oct, Abnormal mammogram of left breast R92.8 [facility] [place] [address] [place] [id number] [place] [address] [id number] Sep, Abnormal mammogram R92.8 [place] [id number] [place] [address] [id number] Sep, Acquired hypothyroidism E03.[address] [id number] Sep, Hypothyroidism, unspecified type E03.9 ; Hyperlipemia, mixed E78.2 and Essential hypertension I10 [place] [id number] [place] [address] [id number] Sep, Hypothyroidism, unspecified type E03.9 and Hyperlipemia, mixed E78.[address] [id number] Aug, Acute maxillary sinusitis, recurrence not specified J01.00 [place] [id number] [place] [address] [id number] Jul, Hyperlipemia, mixed E78.[address] [id number] Jul, Acquired hypothyroidism E03.9 ; Hyperlipemia, mixed E78.2 ; Multiple joint pain M25.50 ; Esophageal reflux K21.9 ; Otitis media with effusion, right H65.91 and Essential hypertension I10 [place] [id number] [place] [address] [id number] Jul, Gastroesophageal reflux disease, esophagitis presence not specified K21.9 [place] [id number] [place] [address] [id number] May, [place] [id number] [place] [address] [id number] Apr, Cystitis N30.90 and Well woman exam Z01.[address] [id number] Apr, Hematuria R31.9 and Dysuria R30.0 [place] [id number] [place] [address] [id number] Apr, [address] [id number] Apr, Urinary tract infection, site not specified N39.0 and Hematuria, unspecified R31.9 [place] [id number] [place] [address] [id number] Dec, [address] [id number] Nov, [address] [id number] Oct, Hyperlipemia, mixed E78.[address] [id number] Oct, Gastroesophageal reflux disease, esophagitis presence not specified K21.9 ; Acute serous otitis media of left ear, recurrence not specified H65.02 ; Hyperlipemia, mixed E78.2 and Hypothyroidism, unspecified type E03.[address] [id number] Sep, [address] [id number] Sep, Actinic keratoses L57.0 and Stuffy and runny nose J34.89 [place] [id number] [place] [address] [id number] Aug, [address] [id number] Aug, Acute cystitis with hematuria N30.01 [place] [id number] [place] [address] [id number] Jul, Reflux esophagitis K21.0 ; Acquired deformities of toe, 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 ; Multiple joint pain M25.50 and Sinus congestion R09.81 [place] [id number] [place] [address] [id number] Jul, [address] [id number] Jun, Acute cystitis without hematuria N30.00 ; Dysuria R30.0 ; Flank pain R10.9 and High risk medication use Z79.[address] [id number] Jun, Urinary tract infection N39.[address] [facility] [address] [id number] [id number] Jun, [facility] [address] [facility] [id number] [id number] Jun, Urinary tract infection, site not specified 599.0 and [facility] [address] [id number] [id number] Jun, [facility] [place] [address] [place] [id number] [id number] May, [facility] [place] [address] [place] [id number] [id number] Dec, [facility] [address]00565100[place], [place] [address] Dec, [facility] [address]00565100[place], [place] [address] Dec, [facility] [id number] [id number] Oct, [facility] [address]00565100[place], [place] [address] Oct, [facility] [address] [place] [id number], [place] [id number] Sep, [facility] [address] [place] [address] [id number], [place] [address] Sep, [facility] [address] [facility] [id number][place] [id number] Sep, [facility] [address] [id number], [place] [address] Sep, [facility] [address] [place] [id number] [id number] Aug, [facility] [address] [facility] [id number], [place] [id number] Aug, [facility] [address]00565100[place], [place] [address] Aug, [facility] [place] [address] [id number], [place] [address] Aug, [facility] [address] [facility] [id number][place] [id number] Aug, [facility] [address] [id number], [place] [address] Aug, [facility] [address] [facility] [id number][place] [id number] Jul, [facility] [address] [id number], [place] [address] Jul, [facility] [address] [facility] [id number], [place] [id number] Jul, [facility] [place] [address] [id number], [place] Jul, [facility] [address] [facility] [id number], [place] [id number] Jul, [facility] [address] [id number], [place] [address] Jul, [facility] [address] [facility] [id number], [place] [id number] Jul, [facility] [address] [id number], [place] [address] Jul, [facility] [address] [id number], [place] [address] Jun, [facility] [address] [id number], [place] [address] Jun, [facility] [address] [facility] [id number][place] [id number] Jun, [facility] [address] [id number], [place] 134[place]173[place] [address] Jun, [facility] [address] [id number], [place] [address] Jun, [facility] [address] [facility] [id number], [place] [id number] Jun, [facility] [address] [id number] [place] [id number] Jun, [facility] [place] [facility] [address] [id number] [place] [address] Jun, [facility] [address] [id number] [place] [id number] Jun, [facility] [place] [facility] [address] [id number] [place] [address] Jun, [facility] [address] [id number] [place] [id number] May, [facility] [place] [facility] [address] [id number] [place] [address] May, [facility] [address] [id number] [place] [id number] May, [facility] [address] [id number], [place] [address] May, [facility] [place] [facility] [address] [id number] [place] [address] 244[address] Apr, [facility] [place] [facility] [address] [id number] [place] Apr, [facility] [address] [id number], [place] [id number] Apr, [facility] [address] [id number], [place] [address] Apr, [facility] [address] [id number], [place] [id number] Mar, [facility] [address] [id number], [place] [address] Mar, [facility] [address] [id number] [place] [id number] Feb, [facility] [place] [facility] [address] [id number] [place] [address] Feb, [facility] [address] [id number] [place] [id number] January, [facility] [place] [facility] [address] [id number], [place] [address] January, [facility] [address] [facility] [id number], [place] [id number] January, [facility] [place] [facility] [address] [id number], [place] [address] January, [facility] [address] [facility] [id number] [place] [id number] Dec, [facility] [place] [facility] [address] [id number] [place] [address]- 6[address] Dec, [facility] [address] [facility] [id number], [place] [id number] Dec, [facility] [place] [facility] [address]00565100[place], [place] [address] Dec, [facility] [id number], [place] [id number] Nov, [facility] [place] [facility] [address]00565100[place], [place] [address] Nov, [facility] [place] [facility] [address]00565100[place], [place] [address] 8[address] Oct, [facility] [place] [facility] [address]00565100[place], [place] [address] 8[address] Oct, [facility] [place] [facility] [address]00565100[place], [place] [address]- 277[address] Sep, [facility] [address] [facility] [id number], [place] [id number] Sep, [facility] [address] [facility] [id number], [place] [id number] Sep, [facility] [place] [facility] [address] [id number], [place] [address]- [address] Sep, [facility] [address] [place] [id number], [place] [id number] Aug, [facility] [place] [facility] [address] [id number], [place] [address] Aug, [facility] [address] [facility] [id number], [place] [id number] Jul, [facility] [place] [facility] [address] [id number], [place] [address]- 67[address] Jul, [facility] [address] [facility] [id number], [place] [id number] Jul, [facility] [place] [facility] [address] [id number], [place] [address] Jul, [facility] [address] [facility] [id number], [place] [id number] Jul, [facility] [place] [facility] [address] [id number], [place] [address] Jul, [facility] [address] [facility] [id number], [place] 058234026 Jul, [facility] [place] [facility] [address] [id number], [place] [address]- [address] Jul, [facility] [place] [facility] [address] [id number], [place] [address]- 89[address] Jul, [facility] [address] [facility] [id number], [place] [id number] Jun, [facility] [place] [facility] [address] [id number], [place] [address] Jun, [facility] [address] [facility] [id number], [place] [address]41107547 Jun, [facility] [address] [facility] [id number], [place] 260049928 Jun, [facility] [place] [facility] [address] [id number], [place] [address]- 4[address] Jun, [facility] [place] [facility] [address] [id number], [place] [address]- 37[address] Jun, [facility] [address] [facility] [id number], [place] 847330269 Jun, [facility] [place] [facility] [address] [id number], [place] [address]- 2549 Jun, [facility] [place] [facility] [address] [id number], [place] [address]- 2546 Jun, [facility] [address] [id number] [place] 878803951 May, [facility] [address] [id number] [place] [id number] May, [facility] [address] [id number] [place] 7823495[place] May, [facility] [address] [id number] [place] [id number] May, [facility] [address] [id number] [place] [id number] Apr, [facility] [address] [id number] [place] [id number] Feb, [facility] [address] [id number] [place] [id number] Feb, [facility] [address] [id number], [place] [address]- [address] Feb, [facility] [address] [id number] [place] [id number] January, [facility] [place] [facility] [address] [id number], [place] [address]- 0986 January, [facility] [address] [id number], [place] [id number] January, [facility] [address] [id number] [place] [id number] January, [facility] [address] [id number], [place] 079015400 January, [facility] [facility] [address] [id number], [place] [address]- 2546 Nov, [facility] [place] [facility] [address] [id number], [place] [address]- 5762 Nov, [facility] [address] [id number] [place] [id number] Oct, [facility] [address] [id number] [place] [id number] Oct, [facility] [address] [id number] [place] [id number] Oct, [facility] [address] [id number] [place] [id number] Oct, [facility] [id number] [place] [address]- 2546 Oct, [facility] [address] [id number], [place] [address]- 8594 Oct, [facility] [address] [id number] [place] [id number] Sep, [facility] [address]00565100[place], [place] [address]- 6[address] Sep, [facility] [address] [id number], [place] 915886977 Sep, [facility] [address] [id number], [place] 083182022 Sep, [facility] [address] [id number] [place] 080771669 Jun, [facility] [address] [id number], [place] [address]- 8196 Jun, [facility] [address] [id number] [place] 148572796 May, [facility] [address] [id number] [place] [id number] May, [facility] [address] [id number] [place] [id number] Apr, [facility] [address] [id number] [place] [id number] Apr, [facility] [address] [id number] [place] 664502498 Apr, [facility] [address] [id number] [place] [id number] Mar, [facility] [address]00565100[place], [place] [address]- 25[address] Feb, [address] [place] [address] [id number] Nov, [place] [id number] [place] [address] [id number] Nov, [facility] [id number] [place] [address]- 2546 Nov, [facility] [id number] [place] [address] 8[address]- 2546 Nov, [facility] [id number] [place] [address] 80941- 2546 Nov, [place] [id number] [place] [address] [id number] Nov, [address] [place] [address] [id number] Sep, [address] [place] [address] [id number] Sep, IMMUNIZATIONS No Known Immunizations SOCIAL HISTORY Never Assessed REASON FOR VISIT Medication question PLAN OF CARE VITAL SIGNS MEDICATIONS Medication Instructions Dosage Frequency Start Date End Date Duration Status Fosamax 70 MG Orally once a week, take 30 min before eating and avoid lying down for 30 min. 1 tablet Dec, 0 days Active RESULTS No Results PROCEDURES [...] L4-S1 03/06/2016 Surgical History Hemmroidectomy-Dr. YANG in [place] 2013 Hospitalization History surgeries Hospitalization History [facility] for abdominal/chest pain 07/2015 Hospitalization History In for lumbar surgery x's 10 days 02/2015 Hospitalization History Pt was in [facility] for rehab from surgery, Dx with UTI
--- OUTSIDE RECORDS SUMMARY | 2018-07-27 08:32 | XMS REPORT ---
Author Author ROOPA FOSTER [facility] Address [address] [place] [address] Care Team Providers Care Sales Representative [employer] Name Role Phone ROOPA FOSTER Unavailable PROBLEMS Type Condition ICD9-CM Code EAP37-AW Code Onset Dates Condition Status SNOMED Code Problem Degeneration of intervertebral disc, site unspecified 722.6 Active 98368277 Problem Memory loss 780.93 Active 32453198 Problem Pain in joint, site unspecified 719.40 Active 03428740 Problem Pain in joint, shoulder region 719.41 Active 183026902 Problem Primary localized osteoarthrosis, hand 715.14 Active 789710472 Problem Hirsutism 704.1 Active 251352304 Problem Actinic keratosis 702.0 Active 301317 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 405716279 Problem Other psoriasis 696.1 Active 9065275 Problem Other and unspecified hyperlipidemia 272.4 Active 98194494 Problem Lumbago 724.2 Active 676705463 Problem Unspecified hypothyroidism 244.9 Active 63516261 Problem Unspecified backache 724.5 Active 728326293 Problem Hyperlipemia, mixed E78.2 Active 504599979 Problem Essential hypertension I10 Active 25719750 Problem Esophageal reflux K21.9 Active 583787315 Problem Hypothyroidism, unspecified type E03.9 Active 27353907 Problem Neuropathy G62.9 Active 814960822 Problem Diverticulosis of colon (without mention of hemorrhage) 562.10 Active 652083277 Problem Anal fissure 565.0 Active 19289241 Problem Sciatica 724.3 Active 34077560 Problem Otitis media with effusion, right H65.91 Active 91772646 Problem Acquired hypothyroidism E03.9 Active 619136539 Problem Abnormal mammogram of left breast R92.8 Active 570116010 Problem Multiple joint pain M25.50 Active 27881106 Problem Abdominal pain, left lower quadrant 789.04 Active 270301014 Problem Acute bronchitis 466.0 Active 92139045 Problem Dysphagia, unspecified 787.20 Active 57985231 Problem Acute maxillary sinusitis 461.0 Active 13877455 Problem Esophageal reflux 530.81 Active 056831345 Problem Chronic airway obstruction, not elsewhere classified 496 Active 00734810 Problem Benign paroxysmal positional vertigo 386.11 Active 784828067 Problem Allergic rhinitis due to pollen 477.0 Active 25980683 Problem External hemorrhoids with other complication 455.5 Active 53496788 Problem Internal hemorrhoids without mention of complication 455.0 Active 83959983 ALLERGIES No Information SOCIAL HISTORY Never Assessed PLAN OF CARE VITAL SIGNS MEDICATIONS Medication Instructions Dosage Frequency Start Date End Date Duration Status Gabapentin 100 mg Orally 3 times a day 2 capsules 8h 0 days Active RESULTS No Results PROCEDURES No Known procedures IMMUNIZATIONS No Known Immunizations MEDICAL (GENERAL) HISTORY Type Description Date Medical History hyperlipidemia Medical History acid reflux Medical History allergies Medical History Arthritis Medical History chronic obstructive pulmonary disease (COPD) Medical History osteoporosis Medical History thyroid disorder Surgical History foot surgery rt hammer toe and b union_ repair 05/2015 Surgical History bladder surgery--prolapse x 2 2003, 2005 Surgical History partial hysterectomy 1979 Surgical History carpal tunnel release-bilateral 1997 Surgical History colonoscopy 2013 Surgical History right ankle surgery x 5 (ankle is now fused) 2010 Surgical History decompressive lumbar laminectomy and fusion L4-S1 03/06/2016 Surgical History Hemmroidectomy-Dr. YANG in [place] 2013 Hospitalization History surgeries Hospitalization History [facility] for abdominal/chest pain 07/2015 Hospitalization History Inpt for lumbar surgery x's 10 days 02/2015 Hospitalization History Pt was in [facility] for rehab from surgery, Dx with UTI
--- OUTSIDE RECORDS SUMMARY | 2018-07-27 08:32 | XMS REPORT ---
Author Author YU WEBSTER [facility] eClinicalWorks Address Unknown Phone Unavailable Care Team Providers Care Flat Examiner Name Role Phone YU WEBSTER CP Unavailable [...] history of colonic polyps V12.72 Active Medications No Known Medications Results No Known Results Summary Purpose eClinicalWorks Submission
--- OUTSIDE RECORDS SUMMARY | 2018-07-27 08:32 | XMS REPORT ---
Author Author ROOPA FOSTER [facility] Address [address] [place] [address] Care Team Providers Care Tubular Stock Glass Bulb Machine Former Name Role Phone ROOPA FOSTER Unavailable PROBLEMS Type Condition ICD9-CM Code WHV46-GN Code Onset Dates Condition Status SNOMED Code Problem Essential hypertension I10 Active 49411061 Problem Multiple joint pain M25.50 Active 63195657 Problem Acquired hypothyroidism E03.9 Active 918224523 Problem Non-seasonal allergic rhinitis due to pollen J30.1 Active 14806245 Problem Chronic fatigue R53.82 Active 77320724 Problem Neuropathy G62.9 Active 627409402 Problem Abnormal mammogram of left breast R92.8 Active 541512672 Problem Obesity (BMI 30.0-34.9) E66.9 Active 392640661774842 Problem Hypothyroidism, unspecified type E03.9 Active 04233172 Problem Memory loss 780.93 Active 01104054 Problem Primary localized osteoarthrosis, hand 715.14 Active 908930723 Problem Diverticulosis of colon (without mention of hemorrhage) 562.10 Active 485282962 Problem Unspecified hypothyroidism 244.9 Active 02191887 Problem Actinic keratosis 702.0 Active 602396200 Problem Hyperlipemia, mixed E78.2 Active 623440018 Problem Other psoriasis 696.1 Active 0023872 Problem Esophageal reflux K21.9 Active 232336654 ALLERGIES No Information ENCOUNTERS Encounter Location Date Diagnosis [facility] [address] [facility] [id number] [address] Feb, Sore throat and laryngitis J06.0 and Strep throat J02.0 [facility] [address] [facility] [id number] [address] Dec, [facility] [address] [facility] [facility] [id number] [place] [id number] Dec, [facility] [address] [facility] [facility] [id number] [place] [id number] Dec, Dilated pore of Mk of back L70.8 ; Seborrheic keratoses L82.1 and Non- seasonal allergic rhinitis due to pollen J30.1 [facility] [address] [facility] [facility] [id number] [place] [id number] Dec, [address] [id number] [place] [id number] Oct, [facility] [id number] [place] [address] [id number] Oct, Screening breast examination Z12.31 and History of abnormal mammogram Z87.898 [place] [id number] [place] [address] [id number] Sep, [address] [place] [address] [id number] Sep, [address] [place] [address] [phone] Sep, [address] [place] [address] [id number] Jun, Obesity (BMI 30.0-34.9) E66.9 ; Chronic fatigue R53.82 ; Neuropathy G62.9 ; Essential hypertension I10 and Encounter for immunization Z23 [address] [place] [address] [id number] Jun, Neuropathy G62.9 and Essential hypertension I10 [address] [place] [address] [id number] Apr, [address] [place] [address] [id number] Mar, Neuropathy G62.9 ; Hypothyroidism, unspecified type E03.9 ; Essential hypertension I10 ; Muscle spasm M62.838 and Hyperlipemia, mixed E78.2 [address]00565100[place] [id number] Feb, [place] [id number] [place] [address] [id number] January, [address] [id number] [place] [id number] Dec, [facility] [place] [id number] [place] [address] [id number] Dec, Hypothyroidism, unspecified type E03.9 [facility] [place] [id number] [place] [address] [id number] Nov, [facility] [place] [id number] [place] [address] [id number] Nov, Neuropathy G62.9 ; Sinus congestion R09.81 ; Hyperlipemia, mixed E78.2 and Hypothyroidism, unspecified type E03.9 [facility] [place] [id number] [place] [address] [id number] Nov, Neuropathy G62.9 [facility] [place] [id number] [place] [address] [id number] Nov, Sinus congestion R09.81 and Acquired hypothyroidism E03.9 [facility] [place] [id number] [place] [address] [id number] Nov, Acquired hypothyroidism E03.9 [facility] [address] [place] [address] [id number] Oct, [facility] [place] [id number] [place] [address] [id number] Oct, Sinus congestion R09.81 and Neuropathy G62.9 [facility] [address] [place] [address] [id number] Oct, Fever, unspecified R50.9 ; Sinus congestion R09.81 and Neuropathy G62.9 [facility] [place] [address] [id number] [place] [address] Oct [facility] [address] [place] [address] [id number] Oct, Abnormal mammogram of left breast R92.8 [facility] [address] [place] [address] [id number] Sep, Abnormal mammogram R92.8 [facility] [address] [place] [address] [id number] Sep, Acquired hypothyroidism E03.9 [facility] [id number] [place] [address] [id number] Sep, Hypothyroidism, unspecified type E03.9 ; Hyperlipemia, mixed E78.2 and Essential hypertension I10 [place] [address] [id number] Sep, Hypothyroidism, unspecified type E03.9 and Hyperlipemia, mixed E78.[address] [id number] Aug, Acute maxillary sinusitis, recurrence not specified J01.[address] [id number] Jul, Hyperlipemia, mixed E78.[address] [id number] Jul, Acquired hypothyroidism E03.9 ; Hyperlipemia, mixed E78.2 ; Multiple joint pain M25.50 ; Esophageal reflux K21.9 ; Otitis media with effusion, right H65.91 and Essential hypertension I10 [place] [id number] [place] [address] [id number] Jul, Gastroesophageal reflux disease, esophagitis presence not specified K21.9 [place] [id number] [place] [address] [id number] May, [address] [id number] Apr, Cystitis N30.90 and Well woman exam Z01.419 [place] [id number] [place] [address] [id number] Apr, Hematuria R31.9 and Dysuria R30.[address] [id number] Apr, [address] [id number] Apr, Urinary tract infection, site not specified N39.0 and Hematuria, unspecified R31.[address] [id number] Dec, [address]00565100[place] [id number] Nov, [address] [place] [address] [id number] Oct, Hyperlipemia, mixed E78.2 [place] [id number] [place] [address] [id number] Oct, Gastroesophageal reflux disease, esophagitis presence not specified K21.9 ; Acute serous otitis media of left ear, recurrence not specified H65.02 ; Hyperlipemia, mixed E78.2 and Hypothyroidism, unspecified type E03.9 [place] [id number] [place] [address] [id number] Sep, [place] [id number] [place] [address] [id number] Sep, Actinic keratoses L57.0 and Stuffy and runny nose J34.89 [place] [id number] [place] [address] [id number] Aug, [place] [id number] [place] [address] [id number] Aug, Acute cystitis with hematuria N30.01 [place] [id number] [place] [address] [id number] Jul, Reflux esophagitis K21.0 ; Acquired deformities of toe, 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 ; Multiple joint pain M25.50 and Sinus congestion R09.81 [address] [place] [address] [id number] Jul, [place] [address] [place] [address] [id number] Jun, Acute cystitis without hematuria N30.00 ; Dysuria R30.0 ; Flank pain R10.9 and High risk medication use Z79.899 [address] [place] [address] [id number] Jun, Urinary tract infection N39.0 [place] [address] [facility] [id number] [place] [id number] Jun, [address]00565100[place] [id number] Jun, Urinary tract infection, site not specified 599.0 and Encounter for [facility] [id number] [id number] Jun, [facility] [address] [id number] [place] [id number] May, [facility] [id number] [place] [id number] Dec, [facility] [id number] [place] [address] Dec, [facility] [place] [facility] [id number] [place] [address] Dec, [facility] [id number] [place] [id number] Oct, [facility] [address]00565100[place] [address] Oct, [facility] [id number] [place] [id number] Sep, [facility] [address]00565100[place] [address] Sep, [facility] [id number] [place] [id number] Sep, [facility] [address] [address] [id number] [address] Sep, [facility] [id number] [place] [id number] Aug, [facility] [address] [id number] [place] [id number] Aug, [facility] [address]00565100[place] [address] Aug, [facility] [place] [facility] [address] [place] [address] [id number] [address] Aug, [facility] [id number] [place] [id number] Aug, [facility] [place] [facility] [address] [facility] [id number] [place] [address] Aug, [facility] [address] [facility] [facility] [id number] [place] [id number] Jul, [facility] [place] [address] [facility] [id number] [place] [address] Jul, [facility] [address] [facility] [facility] [id number] [place] [id number] Jul, [facility] [place] [facility] [address] [id number] [place] [address] Jul, [facility] [address] [facility] [facility] [id number] [place] [id number] Jul, [facility] [place] [address] [facility] [id number] [place] [address] Jul, [facility] [address] [id number] [place] [id number] Jul, [facility] [place] [address] [facility] [id number] [place] [address] Jul, [facility] [place] [address] [facility] [id number] [place] [address] Jun, [facility] [place] [facility] [address] [facility] [id number] [place] [address] Jun, [facility] [address] [facility] [facility] [id number] [place] [id number] Jun, [facility] [place] [address] [facility] [id number] [place] [address] Jun, [facility] [place] [address] [facility] [id number] [place] [address] Jun, [facility] [address] [facility] [facility] [id number] [place] [id number] Jun, [facility] [address] [facility] [facility] [id number] [place] [id number] Jun, [facility] [place] [facility] [address] [facility] [id number] [place] [address] Jun, [facility] [address] [id number] [place] [id number] Jun, [facility] [place] [facility] [address] [id number] [place] [address] Jun, [facility] [address] [id number] [place] [id number] May, [facility] [place] [facility] [address] [id number] [place] May, [facility] [address] [id number] [place] [id number] May, [facility] [place] [facility] [address] [facility] [id number] [place] [address] May, [facility] [place] [facility] [address] [facility] [id number] [place] [address] Apr, [facility] [place] [facility] [address] [facility] [id number] [place] [address] Apr, [facility] [address] [id number] [place] [id number] Apr, [facility] [place] [facility] [address] [facility] [id number] [place] [address] Apr, [facility] [address] [facility] [facility] [id number] [place] [id number] Mar, [facility] [place] [facility] [address] [id number] [address] Mar, [facility] [address] [id number] [place] [address]68[address] Feb, [facility] [place] [facility] [address] [id number] [place] [address] Feb, [facility] [address] [id number] [place] [id number] January, [facility] [place] [facility] [address] [id number] [place] [address] January, [facility] [address] [id number] [place] [id number] January, [facility] [address] [facility] [id number] [place] [address] January, [facility] [address] [facility] [facility] [id number] [place] [id number] Dec, [facility] [address] [facility] [id number] [place] [address] Dec, [facility] [address] [facility] [facility] [id number] [place] 925263287 Dec, [facility] [address] [facility] [id number] [place] [address] Dec, [facility] [address] [facility] [facility] [id number] [place] [id number] Nov, [facility] [place] [facility] [address]00565100[place] [address] Nov, [facility] [place] [facility] [address]00565100[place] [address] Oct, [facility] [place] [facility] [address]00565100[place] [address] Oct, [facility] [place] [facility] [address]00565100[place] [address] Sep, [facility] [address] [facility] [facility] [id number] [place] [id number] Sep, [facility] [address] [facility] [facility] [id number] [place] [id number] Sep, [facility] [place] [facility] [address] [facility] [id number] [place] [address] Sep, [facility] [address] [facility] [facility] [id number] [place] [id number] Aug, [facility] [place] [facility] [address] [facility] [id number] [place] [address] 25[address] Aug, [facility] [address] [place] [address] [id number] [place] 035989135 Jul, [facility] [address] [id number] [place] [address] 38[address] Jul, [facility] [address] [facility] [facility] [id number] [place] 938354662 Jul, [facility] [facility] [address] [facility] [id number] [place] [address] 8[address] Jul, [facility] [address] [facility] [facility] [id number] [place] 268156661 Jul, [facility] [facility] [address] [facility] [id number] [place] [address] Jul, [facility] [address] [facility] [facility] [id number] [place] [address] [id number] Jul, [facility] [place] [facility] [address] [place] [id number] [address]- 8467 Jul, [facility] [address]00565100[place] [address] Jul, [facility] [address] [facility] [id number] [place] 826038008 Jun, [facility] [place] [facility] [address] [facility] [id number] [place] [address] Jun, [facility] [address] [facility] [facility] [id number] [place] 480984679 Jun, [facility] [place] [address] [facility] [facility] [id number] [place] [id number] Jun, [facility] [place] [facility] [address] [facility] [id number] [place] [address]- 2207 Jun, [facility] [place] [facility] [address] [facility] [id number] [place] [address]- 9[address] Jun, [facility] [address] [facility] [facility] [id number] [place] 250469192 Jun, [facility] [place] [facility] [address] [facility] [id number] [place] [address]- 4552 Jun, [facility] [place] [facility] [address]00565100[place] [address]- 2698 Jun, [facility] [address] [id number] [place] [address] May, [facility] [address] [id number] [place] [id number] May, [facility] [address] [id number] [place] [id number] May, [facility] [address] [id number] [place] [id number] May, [facility] [address] [id number] [place] 823829049 Apr, [facility] [address] [id number] [place] 550226122 Feb, [facility] [address] [id number] [place] [id number] Feb, [facility] [address] [facility] [id number] [place] [address]- 2546 Feb, [facility] [address] [id number] [place] 499718515 January, [facility] [address] [facility] [id number] [place] [address]- 2546 January, [facility] [address] [id number] [place] 724923726 January, [facility] [address] [id number] [place] 203007074 January, [facility] [address] [id number] [place] 166623203 January, [facility] [address] [facility] [id number] [place] [address]- 2546 Nov, [facility] [address] [facility] [id number] [place] [address]- 2546 Nov, [facility] [address] [id number] [place] 498043775 Oct, [facility] [address] [id number] [place] 271109779 Oct, [facility] [address] [id number] [place] 850729691 Oct, [facility] [address] [id number] [place] 169302600 Oct, [facility] [place] [facility] [address] [facility] [id number] [place] [address]- 0468 Oct, [facility] [place] [facility] [address] [facility] [id number] [place] [address]- 7144 Oct, [facility] [address] [id number] [place] [id number] Sep, [facility] [facility] [address] [facility] [id number] [place] [address]- 3323 Sep, [facility] [address] [id number] [place] 696155720 Sep, [facility] [address] [id number] [place] 767879718 Sep, [facility] [address] [id number] [place] 035455857 Jun, [facility] [address]00565100[place] [address]- 07[address] Jun, [facility] [address] [id number] [place] 414776335 May, [facility] [address] [id number] [place] 674795875 May, [facility] [address] [id number] [place] 294208511 Apr, [facility] [address] [id number] [place] 015406499 Apr, [facility] [address] [id number] [place] 067822962 Apr, [facility] [address] [id number] [place] [id number] Mar, [facility] [address] [facility] [id number] [place] [address]- 0607 Feb, [facility] [address] [facility] [facility] [id number] [place] [id number] Nov, [facility] [address] [facility] [facility] [id number] [place] [id number] Nov, [facility] [address]00565100[place] [address]- 2546 Nov, [facility] [address] [id number] [address]- 2546 Nov, [facility] [address]00565100[place] [address]- 2546 Nov, [facility] [address] [id number] [place] [address]35916[address] Nov, [facility] [address]00565100[place] [address]99467543 Sep, [facility] [address] [id number] [place] [id number] Sep, IMMUNIZATIONS No Known Immunizations SOCIAL HISTORY Never Assessed REASON FOR VISIT requesting return call PLAN OF CARE VITAL SIGNS MEDICATIONS No Known Medications RESULTS No Results PROCEDURES No Known [...] 2 2003, 2005 Surgical History partial hysterectomy 1980 Surgical History carpal tunnel release-bilateral 1997 Surgical History colonoscopy 2013 Surgical History right ankle surgery x 5 (ankle is now fused) 2010 Surgical History decompressive lumbar laminectomy and fusion L4-S1 03/06/2016 [facility] Hospitalization History surgeries Hospitalization History [facility] for abdominal[facility]chest pain 07/2015 Hospitalization History Inpt for lumbar surgery x's 10 days 02/2015 Hospitalization History Pt was in [facility] for rehab from surgery, Dx with UTI -03/2016
--- OUTSIDE RECORDS SUMMARY | 2018-07-27 08:33 | XMS REPORT ---
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 Name Role Phone ROOPA FOSTER Unavailable PROBLEMS Type Condition ICD9-CM Code MIV29-ML Code Onset Dates Condition Status SNOMED Code Problem Essential hypertension I10 Active 48340533 Problem Multiple joint pain M25.50 Active 94664490 Problem Acquired hypothyroidism E03.9 Active 442745737 Problem Non-seasonal allergic rhinitis due to pollen J30.1 Active 12323133 Problem Chronic fatigue R53.82 Active 98131557 Problem Neuropathy G62.9 Active 052191607 Problem Abnormal mammogram of left breast R92.8 Active 110572322 Problem Obesity (BMI 30.0-34.9) E66.9 Active 869172507083919 Problem Hypothyroidism, unspecified type E03.9 Active 66308601 Problem Memory loss 780.93 Active 02380653 Problem Primary localized osteoarthrosis, hand 715.14 Active 787864600 Problem Diverticulosis of colon (without mention of hemorrhage) 562.10 Active 867416550 Problem Unspecified hypothyroidism 244.9 Active 32120311 Problem Actinic keratosis 702.0 Active 240625126 Problem Hyperlipemia, mixed E78.2 Active 518390729 Problem Other psoriasis 696.1 Active 9198395 Problem Esophageal reflux K21.9 Active 278596808 ALLERGIES No Information ENCOUNTERS Encounter Location Date Diagnosis [facility] [address] [facility] [id number] [id number] Mar, [facility] [address] [facility] [id number], [place] [id number] Mar, [facility] [address] [facility] [id number], [place] [address] Feb, Sore throat and laryngitis J06.0 and Strep throat J02.0 [facility] [address] [facility] [id number], [place] [address] Dec, [address] [place] [address] [id number] Dec, [place] [id number] [place] [address] [id number] Dec, Dilated pore of Mk of back L70.8 ; Seborrheic keratoses L82.1 and Non- seasonal allergic rhinitis due to pollen J30.1 [facility] [address]00565[address] [address] Dec, [address]00565[place] [id number] Oct, [address] [place] [address] [id number] Oct, Screening breast examination Z12.31 and History of abnormal mammogram Z87.898 [place] [id number] [place] [address] [id number] Sep, [address]00565100[place] [id number] Sep, [address] [place] [address] [id number] Sep, [place] [id number] [place] [address] [id number] Jun, Obesity (BMI 30.0-34.9) E66.9 ; Chronic fatigue R53.82 ; Neuropathy G62.9 ; Essential hypertension I10 and Encounter for immunization Z23 [facility] [address]00565[address] [id number] Jun, Neuropathy G62.9 and Essential hypertension I10 [address] [place] [address] [id number] Apr, [place] [id number] [place] [address] [id number] Mar, Neuropathy G62.9 ; Hypothyroidism, unspecified type E03.9 ; Essential hypertension I10 ; Muscle spasm M62.838 and Hyperlipemia, mixed E78.[address] [id number][place] [id number] Feb, [facility] [place] [id number] [place] [address] [id number] January, [facility] [id number] [place] [address] [id number] Dec, [facility] [address] [place] [address] [id number] Dec, Hypothyroidism, unspecified type E03.9 [facility] [id number] [place] [address] [id number] Nov, [facility] [place] [id number] [place] [address] [id number] Nov, Neuropathy G62.9 ; Sinus congestion R09.81 ; Hyperlipemia, mixed E78.2 and Hypothyroidism, unspecified type E03.9 [facility] [address] [place] [address] [id number] Nov, Neuropathy G62.9 [facility] [address] [place] [address] [id number] Nov, Sinus congestion R09.81 and Acquired hypothyroidism E03.9 [place] [id number] [place] [address] [id number] Nov, Acquired hypothyroidism E03.9 [address] [place] [address] [id number] Oct, [address] [place] [address] [id number] Oct, Sinus congestion R09.81 and Neuropathy G62.9 [facility] [address]00565[address] [address] Oct, Fever, unspecified R50.9 ; Sinus congestion R09.81 and Neuropathy G62.9 [facility] [place] [address] [id number] [address] Oct [facility] [place] [address] [facility] [id number], [place] [id number] Oct, Abnormal mammogram of left breast R92.8 [facility] [place] [address] [place] [id number] [place] [address] [id number] Sep, Abnormal mammogram R92.8 [place] [id number] [place] [address] [id number] Sep, Acquired hypothyroidism E03.[address] [id number] Sep, Hypothyroidism, unspecified type E03.9 ; Hyperlipemia, mixed E78.2 and Essential hypertension I10 [place] [address] [place] [address] [id number] Sep, Hypothyroidism, unspecified type E03.9 and Hyperlipemia, mixed E78.[address] [id number] Aug, Acute maxillary sinusitis, recurrence not specified J01.00 [place] [address] [place] [address] [id number] Jul, Hyperlipemia, mixed E78.[address] [id number] Jul, Acquired hypothyroidism E03.9 ; Hyperlipemia, mixed E78.2 ; Multiple joint pain M25.50 ; Esophageal reflux K21.9 ; Otitis media with effusion, right H65.91 and Essential hypertension I10 [place] [address] [place] [address] [id number] Jul, Gastroesophageal reflux disease, esophagitis presence not specified K21.9 [place] [address] [place] [address] [id number] May, [place] [address] [place] [address] [id number] Apr, Cystitis N30.90 and Well woman exam Z01.[address] [id number] Apr, Hematuria R31.9 and Dysuria R30.0 [place] [address] [place] [address] [id number] Apr, [address] [id number] Apr, Urinary tract infection, site not specified N39.0 and Hematuria, unspecified R31.9 [place] [address] [place] [address] [id number] Dec, [address] [id number] Nov, [address] [id number] Oct, Hyperlipemia, mixed E78.[address] [id number] Oct, Gastroesophageal reflux disease, esophagitis presence not specified K21.9 ; Acute serous otitis media of left ear, recurrence not specified H65.02 ; Hyperlipemia, mixed E78.2 and Hypothyroidism, unspecified type E03.[address] [id number] Sep, [address] [id number] Sep, Actinic keratoses L57.0 and Stuffy and runny nose J34.89 [place] [address] [place] [address] [id number] Aug, [address] [id number] Aug, Acute cystitis with hematuria N30.01 [place] [address] [place] [address] [id number] Jul, Reflux esophagitis K21.0 ; Acquired deformities of toe, 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 ; Multiple joint pain M25.50 and Sinus congestion R09.81 [place] [address] [place] [address] [id number] Jul, [address] [id number] Jun, Acute cystitis without hematuria N30.00 ; Dysuria R30.0 ; Flank pain R10.9 and High risk medication use Z79.[address] [id number] Jun, Urinary tract infection N39.[address] [facility] [address] [id number] [id number] Jun, [facility] [address] [facility] [id number], [place] [id number] Jun, Urinary tract infection, site not specified 599.0 and [facility] [address] [id number] [id number] Jun, [facility] [address] [place] [id number], [place] [id number] May, [facility] [address] [id number], [place] [id number] Dec, [facility] [address]00565100[place], [place] [address] Dec, [facility] [address]00565100[place], [place] [address] Dec, [facility] [id number], [place] [id number] Oct, [facility] [address]00565100[place], [place] [address] Oct, [facility] [address] [id number], [place] [id number] Sep, [facility] [address] [place] [address] [id number], [place] [address] Sep, [facility] [address] [facility] [id number], [place] [id number] Sep, [facility] [facility] [address] [facility] [id number], [place] [address] Sep, [facility] [address] [id number], [place] [id number] Aug, [facility] [address] [facility] [id number], [place] [id number] Aug, [facility] [address]00565100[place], [place] [address] Aug, [facility] [place] [address] [facility] [id number], [place] [address] Aug, [facility] [address] [facility] [id number], [place] [id number] Aug, [facility] [address] [facility] [id number], [place] [address] Aug, [facility] [address] [facility] [id number], [place] [address]87400921 Jul, [facility] [address] [facility] [id number], [place] [address] Jul, [facility] [address] [facility] [id number], [place] [id number] Jul, [facility] [address] [facility] [id number], [place] 250729- [address] Jul, [facility] [address] [facility] [id number], [place] [id number] Jul, [facility] [place] [facility] [address] [facility] [id number], [place] [address]- [address] Jul, [facility] [address] [facility] [id number], [place] 840730023 Jul, [facility] [address] [facility] [id number], [place] [address]- 17[address] Jul, [facility] [address] [facility] [id number], [place] [address]- 5[address] Jun, [facility] [place] [facility] [address] [facility] [id number], [place] [address]- 0[address] Jun, [facility] [address] [facility] [id number], [place] 112390584 Jun, [facility] [facility] [address] [facility] [id number], [place] 38014557- 1980 Jun, [facility] [place] [facility] [address] [facility] [id number], [place] [address]- [address] Jun, [facility] [address] [facility] [id number], [place] [id number] Jun, [facility] [address] [id number] [place] [id number] Jun, [facility] [place] [facility] [address] [id number] [place] [address]- [address] Jun, [facility] [address] [id number] [place] [id number] Jun, [facility] [place] [facility] [address] [id number] [place] [address]- 7716 Jun, [facility] [address] [id number] [place] [id number] May, [facility] [place] [facility] [address] [facility] [id number] [place] [address]- 3[address] May, [facility] [address] [id number] [place] [id number] May, [facility] [place] [facility] [address] [facility] [id number], [place] [address]- 9[address] May, [facility] [place] [facility] [address] [facility] [id number] [place] [address]- 8820 Apr, [facility] [place] [facility] [address] [facility] [id number] [place]- 1924 Apr, [facility] [address] [id number], [place] 156084191 Apr, [facility] [place] [facility] [address] [facility] [id number], [place] [address]- [address] Apr, [facility] [address] [id number], [place] 648672398 Mar, [facility] [place] [facility] [address] [id number], [place] [address]- [address] Mar, [facility] [address] [id number] [place] [id number] Feb, [facility] [place] [facility] [address] [facility] [id number] [place] [address]- 3835 Feb, [facility] [address] [id number] [place] 847351349 January, [facility] [place] [facility] [address] [facility] [id number], [place] [address]- [address]46 January, [facility] [address] [facility] [id number], [place] 846306221 January, [facility] [place] [facility] [address] [facility] [id number], [place] [address]- [address]46 January, [facility] [address] [facility] [id number] [place] [id number] Dec, [facility] [place] [facility] [address] [facility] [id number] [place] [address]- 9816 Dec, [facility] [address] [facility] [id number], [place] [id number] Dec, [facility] [place] [facility] [address]00565100[place], [place] [address]- 25[address] Dec, [facility] [id number], [place] 501935934 Nov, [facility] [place] [facility] [address]00565100[place], [place] [address]- 76[address] Nov, [facility] [place] [facility] [address]00565100[place], [place] [address]- 3583 Oct, [facility] [place] [facility] [address]00565100[place], [place] [address]- 3[address] Oct, [facility] [place] [facility] [address]00565100[place], [place] [address]- 4[address] Sep, [facility] [address] [facility] [id number], [place] [id number] Sep, [facility] [address] [facility] [id number], [place] 372650350 Sep, [facility] [place] [facility] [address] [facility] [id number], [place] [address]- 2546 Sep, [facility] [address] [id number], [place] 875259882 Aug, [facility] [place] [facility] [address] [facility] [id number], [place] [address]- 3867 Aug, [facility] [address] [facility] [id number], [place] 090803039 Jul, [facility] [place] [facility] [address] [facility] [id number], [place] [address]- 39[address] Jul, [facility] [address] [facility] [id number], [place] 787952578 Jul, [facility] [place] [facility] [address] [facility] [id number], [place] [address]- 7543 Jul, [facility] [address] [facility] [id number], [place] 821098374 Jul, [facility] [place] [facility] [address] [facility] [id number], [place] [address]- 5931 Jul, [facility] [address] [facility] [id number], [place] 230424938 Jul, [facility] [place] [facility] [address] [facility] [id number], [place] [address]- 5[address] Jul, [facility] [place] [facility] [address] [facility] [id number], [place] [address]- 7363 Jul, [facility] [address] [facility] [id number], [place] 315214528 Jun, [facility] [place] [facility] [address] [facility] [id number], [place] [address]- 9235 Jun, [facility] [address] [facility] [id number], [place] [id number] Jun, [facility] [address] [facility] [id number], [place] 160861287 Jun, [facility] [place] [facility] [address] [facility] [id number], [place] [address]- 6501 Jun, [facility] [place] [facility] [address] [facility] [id number], [place] [address]- 6342 Jun, [facility] [address] [facility] [id number], [place] 313762409 Jun, [facility] [place] [facility] [address] [id number], [place] [address]- 254 Jun, [facility] [facility] [address] [id number], [place] [address]- 2546 Jun, [facility] [address] [id number] [place] [id number] May, [facility] [address] [id number] [place] [id number] May, [facility] [address] [id number] [place] 861686465 May, [facility] [address] [id number] [place] [id number] May, [facility] [address] [id number] [place] 107694574 Apr, [facility] [address] [id number] [place] [id number] Feb, [facility] [address] [id number] [place] 803520101 Feb, [facility] [address] [facility] [id number], [place] [address]- 2546 Feb, [facility] [address] [id number] [place] [id number] January, [facility] [facility] [address] [facility] [id number], [place] [address]- 2566 January, [facility] [address] [id number], [place] 526885878 January, [facility] [address] [id number] [place] 095822622 January, [facility] [address] [id number], [place] 232773210 January, [facility] [facility] [address] [facility] [id number], [place] [address]- 2546 Nov, [facility] [place] [facility] [address] [facility] [id number], [place] [address]- 2928 Nov, [facility] [address] [id number] [place] [id number] Oct, [facility] [address] [id number] [place] 105269638 Oct, [facility] [address] [id number] [place] 005108167 Oct, [facility] [address] [id number] [place] 541572517 Oct, [facility] [address] [facility] [id number] [place] [address]- 2546 Oct, [facility] [address] [facility] [id number], [place] [address]- 4171 Oct, [facility] [address] [id number] [place] [id number] Sep, [facility] [address]00565100[place], [place] [address]- 1625 Sep, [facility] [address] [id number], [place] 944512487 Sep, [facility] [address] [id number], [place] 417097046 Sep, [facility] [address] [id number] [place] 540519284 Jun, [facility] [address] [facility] [id number], [place] [address]- 4596 Jun, [facility] [address] [id number] [place] [id number] May, [facility] [address] [id number] [place] 166247584 May, [facility] [address] [id number] [place] [id number] Apr, [facility] [address] [id number] [place] 600253915 Apr, [facility] [address] [id number] [place] [id number] Apr, [facility] [address] [id number] [place] 156367904 Mar, [facility] [address]00565100[place], [place] [address]- [address]46 Feb, [facility] [address]65[address], [place] 149[address]39 Nov, [facility] [address] [place] [address] [id number] Nov, [facility] [address] [id number], [place] [address]- 2546 Nov, [facility] [id number] [place] [address] 0[address]- 2546 Nov, [facility] [id number] [place] [address]- 2546 Nov, [facility] [address] [place] [address] [id number] Nov, [address] [place] [address] [id number] Sep, [address], [place] [address]6946282 Sep, IMMUNIZATIONS No Known Immunizations SOCIAL HISTORY Never Assessed REASON FOR VISIT order for mammogram PLAN OF CARE VITAL SIGNS MEDICATIONS Unknown [...] L4-S1 03/06/2016 Surgical History Hemmroidectomy-Dr. YANG in [place] 2013 Hospitalization History surgeries Hospitalization History [facility] for abdominal/chest pain 07/2015 Hospitalization History Inpt for lumbar surgery x's 10 days 02/2015 Hospitalization History Pt was in [facility] for rehab from surgery, Dx with UTI
--- OUTSIDE RECORDS SUMMARY | 2018-07-27 08:33 | XMS REPORT ---
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 Name Role Phone ROOPA FOSTER Unavailable PROBLEMS Type Condition ICD9-CM Code [id number] Code Onset Dates Condition Status SNOMED Code Problem Degeneration of intervertebral disc, site unspecified 722.6 Active 34119336 Problem Memory loss 780.93 Active 64467361 Problem Pain in joint, site unspecified 719.40 Active 69752056 Problem Pain in joint, shoulder region 719.41 Active 925907785 Problem Primary localized osteoarthrosis, hand 715.14 Active 156382575 Problem Hirsutism 704.1 Active 967852197 Problem Actinic keratosis 702.0 Active 500580712 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 971297368 Problem Other psoriasis 696.1 Active 6727510 Problem Other and unspecified hyperlipidemia 272.4 Active 37685744 Problem Lumbago 724.2 Active 913962971 Problem Unspecified hypothyroidism 244.9 Active 26818897 Problem Unspecified backache 724.5 Active 833698485 Problem Hyperlipemia, mixed E78.2 Active 421936107 Problem Essential hypertension I10 Active 21421534 Problem Esophageal reflux K21.9 Active 900355877 Problem Hypothyroidism, unspecified type E03.9 Active 34217356 Problem Neuropathy G62.9 Active 551930523 Problem Diverticulosis of colon (without mention of hemorrhage) 562.10 Active 076959491 Problem Anal fissure 565.0 Active 28839518 Problem Sciatica 724.3 Active 46237997 Problem Otitis media with effusion, right H65.91 Active 30356548 Problem Acquired hypothyroidism E03.9 Active 495725317 Problem Abnormal mammogram of left breast R92.8 Active 553211944 Problem Multiple joint pain M25.50 Active 30678817 Problem Abdominal pain, left lower quadrant 789.04 Active 586345114 Problem Acute bronchitis 466.0 Active 07772314 Problem Dysphagia, unspecified 787.20 Active 29910512 Problem Acute maxillary sinusitis 461.0 Active 08067937 Problem Esophageal reflux 530.81 Active 076622514 Problem Chronic airway obstruction, not elsewhere classified 496 Active 67794338 Problem Benign paroxysmal positional vertigo 386.11 Active 510423992 Problem Allergic rhinitis due to pollen 477.0 Active 75445821 Problem External hemorrhoids with other complication 455.5 Active 40316309 Problem Internal hemorrhoids without mention of complication 455.0 Active 82659385 ALLERGIES No Information SOCIAL HISTORY Never Assessed PLAN OF CARE VITAL SIGNS MEDICATIONS Medication Instructions Dosage Frequency Start Date End Date Duration Status Fluticasone Propionate 50MCG/AC Nasally Once a day 2 spray in each nostril 24h 0 days Active RESULTS No Results [...] L4-S1 03/06/2016 Surgical History Hemmroidectomy-Dr. YANG in [place] 2013 Hospitalization History surgeries Hospitalization History [facility] for abdominal/chest pain 07/2015 Hospitalization History Inpt for lumbar surgery x's 10 days 02/2015 Hospitalization History Pt was in [facility] for rehab from surgery, Dx with UTI
--- OUTSIDE RECORDS SUMMARY | 2018-07-27 08:33 | XMS REPORT ---
Author Author ESTHER MOORE 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.14 Active 116482761 Problem Hirsutism 704.1 Active 759750153 Problem Actinic keratosis 702.0 Active 770829153 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 233136527 Problem Other psoriasis 696.1 Active 3954761 Problem Other and unspecified hyperlipidemia 272.4 Active 39075387 Problem Lumbago 724.2 Active 591926021 Problem Unspecified hypothyroidism 244.9 Active 73878418 Problem Unspecified backache 724.5 Active 238576297 Problem Hyperlipemia, mixed E78.2 Active 604324998 Problem Essential hypertension I10 Active 68528546 Problem Esophageal reflux K21.9 Active 411125086 Problem Hypothyroidism, unspecified type E03.9 Active 75261365 Problem Neuropathy G62.9 Active 720804285 Problem Diverticulosis of colon (without mention of hemorrhage) 562.10 Active 881545852 Problem Anal fissure 565.0 Active 89011043 Problem Sciatica 724.3 Active 31555489 Problem Otitis media with effusion, right H65.91 Active 24796687 Problem Acquired hypothyroidism E03.9 Active 092998484 Problem Abnormal mammogram of left breast R92.8 Active 972408583 Problem Multiple joint pain M25.50 Active 23463595 Problem Abdominal pain, left lower quadrant 789.04 Active 174297427 Problem Acute bronchitis 466.0 Active 34541057 Problem Dysphagia, unspecified 787.20 Active 88554432 Problem Acute maxillary sinusitis 461.0 Active 85545946 Problem Esophageal reflux 530.81 Active 543728587 Problem Chronic airway obstruction, not elsewhere classified 496 Active 59450182 Problem Benign paroxysmal positional vertigo 386.11 Active 703654523 Problem Allergic rhinitis due to pollen 477.0 Active 93136040 Problem External hemorrhoids with other complication 455.5 Active 50081364 Problem Internal hemorrhoids without mention of complication 455.0 Active 94355487 ALLERGIES Unknown Allergies SOCIAL HISTORY No smoking Hx information available PLAN OF CARE VITAL SIGNS MEDICATIONS Unknown Medications RESULTS Name Result Date Reference Range Mammogram Dx, Left 2016-10-16 Ultrasound : Breast, Left 2016-10-16 PROCEDURES No Known procedures IMMUNIZATIONS No Known Immunizations
--- OUTSIDE RECORDS SUMMARY | 2018-07-27 08:33 | XMS REPORT ---
Author Author ROOPA FOSTER [facility] Address [address] [place] [address] Care Team Providers Care Lineman Name Role Phone ROOPA FOSTER Unavailable PROBLEMS Type Condition ICD9-CM Code [id number] Code Onset Dates Condition Status SNOMED Code Problem Degeneration of intervertebral disc, site unspecified 722.6 Active 02358720 Problem Memory loss 780.93 Active 56016392 Problem Pain in joint, site unspecified 719.40 Active 27760211 Problem Pain in joint, shoulder region 719.41 Active 154424838 Problem Primary localized osteoarthrosis, hand 715.14 Active 223799290 Problem Hirsutism 704.1 Active 008137099 Problem Actinic keratosis 702.0 Active 276437 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 480593736 Problem Other psoriasis 696.1 Active 6080626 Problem Other and unspecified hyperlipidemia 272.4 Active 60536958 Problem Lumbago 724.2 Active 142141123 Problem Unspecified hypothyroidism 244.9 Active 93479652 Problem Unspecified backache 724.5 Active 969008749 Problem Hyperlipemia, mixed E78.2 Active 747450132 Problem Essential hypertension I10 Active 46305753 Problem Esophageal reflux K21.9 Active 590074188 Problem Hypothyroidism, unspecified type E03.9 Active 40819561 Problem Neuropathy G62.9 Active 679677350 Problem Diverticulosis of colon (without mention of hemorrhage) 562.10 Active 468553825 Problem Anal fissure 565.0 Active 02828772 Problem Sciatica 724.3 Active 86351085 Problem Otitis media with effusion, right H65.91 Active 92908920 Problem Acquired hypothyroidism E03.9 Active 077942957 Problem Abnormal mammogram of left breast R92.8 Active 422127832 Problem Multiple joint pain M25.50 Active 03284942 Problem Abdominal pain, left lower quadrant 789.04 Active 866818428 Problem Acute bronchitis 466.0 Active 67248956 Problem Dysphagia, unspecified 787.20 Active 94881518 Problem Acute maxillary sinusitis 461.0 Active 34672289 Problem Esophageal reflux 530.81 Active 826160350 Problem Chronic airway obstruction, not elsewhere classified 496 Active 20731539 Problem Benign paroxysmal positional vertigo 386.11 Active 521015985 Problem Allergic rhinitis due to pollen 477.0 Active 78405758 Problem External hemorrhoids with other complication 455.5 Active 77245551 Problem Internal hemorrhoids without mention of complication 455.0 Active 71530269 ALLERGIES Substance Reaction Event Type Date Status Penicillin V Potassium hives Drug Allergy Oct, Active Biaxin Unknown Drug Allergy Oct, Active Amoxicillin hives Drug Allergy Oct, Active SOCIAL HISTORY Never Assessed PLAN OF CARE Activity Details Follow Up 4 Weeks Reason:CHM Neuropathy VITAL SIGNS Height 62 in 2016-11-03 Weight 172.2 lbs 2016-11-03 Temperature 98.7 degrees Fahrenheit 2016-11-03 Heart Rate 86 bpm 2016-11-03 Respiratory Rate 16 2016-11-03 Oximetry 93 % 2016-11-03 BMI 31.49 kg/m2 2016-11-03 Blood pressure systolic 100 mmHg 2016-11-03 Blood pressure diastolic 70 mmHg 2016-11-03 MEDICATIONS Medication Instructions Dosage Frequency Start Date End Date Duration Status Fluticasone Propionate 50MCG/AC Nasally Once a day 2 spray in each nostril 24h 0 days Active Levothyroxine Sodium 75 MCG Orally Once a day 1 tablet 24h 0 days Active Diclofenac Sodium 75MG Orally Once a day 1 tablet 24h Active Boniva 150 MG Orally Once per month 1 tablet 30 Active MiraLax Active Crestor 20 mg Orally Once a day 1/2 tablet 24h Active Omeprazole 20MG TAKE ONE CAPSULE BY MOUTH BEFORE MEAL(S) TWICE DAILY 20 Active Toviaz 4 MG Orally Once a day 1 tablet 24h Active Ventolin HFA 90 MCG/ACT Inhalation every 4 hrs 2 puffs as needed 4h Active Sudafed 30 MG Orally every 6 hrs for sinus congestion 1 tablet as needed 14 days Active Hydrochlorothiazide 25 MG Orally Once a day 1 tablet 24h 0 days Active Prelief 340 (65-50) MG (CA-P) Orally 8 time(s) a day 2 tablets Active Gabapentin 100 mg Orally 3 times a day (increase from once per day to 3 times per day over the first week) 1 capsule 0 days Active RESULTS No Results PROCEDURES Procedure Date Ordered Result Body Site ON LICENSE OF [facility] VISIT ESTABLISHED PATIENT Nov 03, 2016 IMMUNIZATIONS No Known Immunizations MEDICAL (GENERAL) HISTORY [...] L4-S1 03/06/2016 Surgical History Hemmroidectomy-Dr. YANG in [place] 2013 Hospitalization History surgeries Hospitalization History [facility] for abdominal/chest pain 07/2015 Hospitalization History Inpt for lumbar surgery x's 10 days 02/2015 Hospitalization History Pt was in [facility] for rehab from surgery, Dx with UTI
--- OUTSIDE RECORDS SUMMARY | 2018-07-27 08:34 | XMS REPORT ---
Author Author JULIANO CARDENAS Organization [employer] Address Unknown Phone Unavailable Care Team Providers Care Reel And Rewinder Operator Name Role Phone JULIANO CARDENAS CP Unavailable Allergies No Known Allergies Problems Problem Type Condition Code Onset Dates Condition Status Assessment Gastroesophageal reflux disease, esophagitis presence not specified K21.9 Active Problem Pain in joint, shoulder region 719.41 Active Problem Pain in joint, site unspecified 719.40 Active Problem Other psoriasis 696.1 Active Problem Hirsutism 704.1 Active Problem Anal fissure 565.0 Active Problem Acute maxillary sinusitis 461.0 Active Problem Unspecified backache 724.5 Active Problem Dysphagia, unspecified 787.20 Active Problem Memory loss 780.93 Active 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 Problem Benign paroxysmal positional vertigo 386.11 Active Problem Sciatica 724.3 Active Problem Actinic keratosis 702.0 Active Problem Hyperlipemia, mixed E78.2 Active Problem Esophageal reflux 530.81 Active Problem Chronic airway obstruction, not elsewhere classified 496 Active Problem Degeneration of intervertebral disc, site unspecified 722.6 Active Problem Lumbago 724.2 Active Problem Allergic rhinitis due to pollen 477.0 Active Problem External hemorrhoids with other complication 455.5 Active Problem Internal hemorrhoids without mention of complication 455.0 Active Problem Acute bronchitis 466.0 Active Problem Diverticulosis of colon (without mention of hemorrhage) 562.10 Active Problem Other and unspecified hyperlipidemia 272.4 Active Problem Unspecified hypothyroidism 244.9 Active Problem Abdominal pain, left lower quadrant 789.04 Active Problem Primary localized osteoarthrosis, 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
--- OUTSIDE RECORDS SUMMARY | 2018-07-27 08:34 | XMS REPORT ---
Author Author ROOPA FOSTER [facility] Address [address] [place] [address] Care Team Providers Care Air Tank Assembler Name Role Phone ROOPA FOSTER Unavailable PROBLEMS Type Condition ICD9-CM Code VBB52-PZ Code Onset Dates Condition Status SNOMED Code Problem Essential hypertension I10 Active 32072044 Problem Multiple joint pain M25.50 Active 68244596 Problem Acquired hypothyroidism E03.9 Active 807503533 Problem Non-seasonal allergic rhinitis due to pollen J30.1 Active 30619588 Problem Chronic fatigue R53.82 Active 55161837 Problem Neuropathy G62.9 Active 199405950 Problem Abnormal mammogram of left breast R92.8 Active 935202481 Problem Obesity (BMI 30.0-34.9) E66.9 Active 782448514619665 Problem Hypothyroidism, unspecified type E03.9 Active 95663378 Problem Memory loss 780.93 Active 01260066 Problem Primary localized osteoarthrosis, 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 Active 854085893 Problem Diverticulosis of colon (without mention of hemorrhage) 562.10 Active 043318123 Problem Unspecified hypothyroidism 244.9 Active 96709725 Problem Actinic keratosis 702.0 Active 732072436 Problem Hyperlipemia, mixed E78.2 Active 415521558 Problem Other psoriasis 696.1 Active 1704358 Problem Esophageal reflux K21.9 Active 945662734 ALLERGIES No Information ENCOUNTERS Encounter Location Date Diagnosis [facility] [address] [facility] [id number] [address] Feb, Sore throat and laryngitis J06.0 and Strep throat J02.0 [facility] [address] [facility] [id number] [place] [address] Dec, [facility] [address] [facility] [id number] LAKE[place] [id number] Dec, [facility] [address] [facility] [id number] [place]KE[place] [id number] Dec, Dilated pore of Mk of back L70.8 ; Seborrheic keratoses L82.1 and Non- seasonal allergic rhinitis due to pollen J30.1 [facility] [address] [facility] [id number] LAKE[place] [id number] Dec, [address] [id number][place] [id number] Oct, [facility] [id number] [place] [address] [id number] Oct, Screening breast examination Z12.31 and History of abnormal mammogram Z87.898 [place] [id number] [place] [address] [id number] Sep, [address] [place] [address] [id number] Sep, [address] [place] [address] [id number] Sep, [address] [place] [address] [id number] Jun, Obesity (BMI 30.0-34.9) E66.9 ; Chronic fatigue R53.82 ; Neuropathy G62.9 ; Essential hypertension I10 and Encounter for immunization Z23 [address] [place] [address] [id number] Jun, Neuropathy G62.9 and Essential hypertension I10 [address] [place] [address] [id number] Apr, [address] [place] [address] [id number] Mar, Neuropathy G62.9 ; Hypothyroidism, unspecified type E03.9 ; Essential hypertension I10 ; Muscle spasm M62.838 and Hyperlipemia, mixed E78.2 [address]00565100[place] [id number] Feb, [place] [id number] [place] [address] [id number] January, [address] [id number] LAKE[place] [id number] Dec, [facility] [place] [id number] [place] [address] [id number] Dec, Hypothyroidism, unspecified type E03.9 [facility] [place] [address] [place] [id number] [place] [address] [id number] Nov, [facility] [place] [id number] [place] [address] [id number] Nov, Neuropathy G62.9 ; Sinus congestion R09.81 ; Hyperlipemia, mixed E78.2 and Hypothyroidism, unspecified type E03.9 [facility] [place] [id number] [place] [address] [id number] Nov, Neuropathy G62.9 [facility] [place] [id number] [place] [address] [id number] Nov, Sinus congestion R09.81 and Acquired hypothyroidism E03.9 [facility] [place] [id number] [place] [address] [id number] Nov, Acquired hypothyroidism E03.9 [facility] [address] [place] [address] [id number] Oct, [facility] [place] [id number] [place] [address] [id number] Oct, Sinus congestion R09.81 and Neuropathy G62.9 [facility] [address] [place] [address] [id number] Oct, Fever, unspecified R50.9 ; Sinus congestion R09.81 and Neuropathy G62.9 [facility] [place] [address] [id number] [place] [address] Oct [facility] [address] [place] [address] [id number] Oct, Abnormal mammogram of left breast R92.8 [facility] [address] [place] [address] [id number] Sep, Abnormal mammogram R92.8 [facility] [address] [place] [address] [id number] Sep, Acquired hypothyroidism E03.9 [facility] [id number] [place] [address] [id number] Sep, Hyperlipemia, mixed E78.2 ; Hypothyroidism, unspecified type E03.9 and Essential hypertension I10 [place] [address] [id number] Sep, Hypothyroidism, unspecified type E03.9 and Hyperlipemia, mixed E78.[address] [id number] Aug, Acute maxillary sinusitis, recurrence not specified J01.[address] [id number] Jul, Hyperlipemia, mixed E78.[address] [id number] Jul, Acquired hypothyroidism E03.9 ; Hyperlipemia, mixed E78.2 ; Multiple joint pain M25.50 ; Esophageal reflux K21.9 ; Otitis media with effusion, right H65.91 and Essential hypertension I10 [place] [id number] [place] [address] [id number] Jul, Gastroesophageal reflux disease, esophagitis presence not specified K21.[address] [id number] May, [address] [id number] Apr, Cystitis N30.90 and Well woman exam Z01.419 [place] [id number] [place] [address] [id number] Apr, Hematuria R31.9 and Dysuria R30.[address] [id number] Apr, [address] [id number] Apr, Urinary tract infection, site not specified N39.0 and Hematuria, unspecified R31.[address] [id number] Dec, [address]00565100[place] [id number] Nov, [place] [id number] [place] [address] [id number] Oct, Hyperlipemia, mixed E78.2 [place] [id number] [place] [address] [id number] Oct, Gastroesophageal reflux disease, esophagitis presence not specified K21.9 ; Acute serous otitis media of left ear, recurrence not specified H65.02 ; Hypothyroidism, unspecified type E03.9 and Hyperlipemia, mixed E78.2 [place] [id number] [place] [address] [id number] Sep, [place] [address] [place] [address] [id number] Sep, Actinic keratoses L57.0 and Stuffy and runny nose J34.89 [place] [id number] [place] [address] [id number] Aug, [place] [id number] [place] [address] [id number] Aug, Acute cystitis with hematuria N30.01 [place] [address] [place] [address] [id number] Jul, Reflux esophagitis K21.0 ; Acquired deformities of toe, 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 ; Multiple joint pain M25.50 and Sinus congestion R09.81 [address] [place] [address] [id number] Jul, [place] [address] [place] [address] [id number] Jun, Acute cystitis without hematuria N30.00 ; Dysuria R30.0 ; Flank pain R10.9 and High risk medication use Z79.899 [address] [place] [address] [id number] Jun, Urinary tract infection N39.0 [facility] [address] [facility] [id number][place] [id number] Jun, [address]100[place] [id number] Jun, Urinary tract infection, site not specified 599.0 and Encounter [facility] [id number][place] [id number] Jun, [facility] [place] [address] [place] [id number] [place] [id number] May, [facility] [id number] [place] [id number] Dec, [facility] [address] [place] [id number] [place] [address] Dec, [facility] [place] [facility] [address] [place] [id number] [place] [address] Dec, [facility] [id number] [place]KE[place] [id number] Oct, [facility] [address]00565100[place] [address] Oct, [facility] [id number] [place]KE[place] [id number] Sep, [facility] [address]00565100[place] [address] Sep, [facility] [id number] [place]KE[place] [id number] Sep, [facility] [address] [place] [id number] [address] Sep, [facility] [id number] [place]KE[place] [id number] Aug, [facility] [address] [place] [id number] [place] [id number] Aug, [facility] [address]00565100[place] [address] Aug, [facility] [place] [facility] [address] [place] [id number] [address] Aug, [facility] [id number] [place]KE[place] [id number] Aug, [facility] [place] [facility] [address] [facility] [id number] [place] [address] Aug, [facility] [address] [facility] [id number] [place] [id number] Jul, [facility] [place] [facility] [address] [facility] [id number] [place] [address] Jul, [facility] [address] [facility] [id number] [place] [id number] Jul, [facility] [place] [facility] [address] [id number] [place] [address] Jul, [facility] [address] [facility] [id number] [place] [id number] Jul, [facility] [place] [facility] [address] [facility] [id number] [place] [address] Jul, [facility] [place] [address] [place] [id number] [place]KE[place] [id number] Jul, [facility] [place] [facility] [address] [facility] [id number] [address] Jul, [facility] [place] [facility] [address] [facility] [id number] [place] [address] Jun, [facility] [place] [facility] [address] [facility] [id number] [address] Jun, [facility] [address] [facility] [id number] [place]KE[place] [id number] Jun, [facility] [place] [facility] [address] [facility] [id number] [place] [address] Jun, [facility] [place] [facility] [address] [facility] [id number] [place] [address] Jun, [facility] [address] [facility] [id number] [place] [id number] Jun, [facility] [address] [facility] [id number] [place] [id number] Jun, [facility] [place] [facility] [address] [facility] [id number] [address] Jun, [facility] [address] [id number] [place] [id number] Jun, [facility] [place] [facility] [address] [id number] [place] [address]- [address] Jun, [facility] [address] [id number] [place] [id number] May, [facility] [place] [facility] [address] [id number] [place] [address] May, [facility] [address] [id number] [place] [id number] May, [facility] [place] [facility] [address] [facility] [id number] [place] [address] May, [facility] [place] [facility] [address] [facility] [id number] [place] [address] Apr, [facility] [place] [facility] [address] [facility] [id number] [place] [address] Apr, [facility] [address] [id number] [place] [id number] Apr, [facility] [place] [facility] [address] [facility] [id number] [place] [address] Apr, [facility] [address] [facility] [id number] [place] [id number] Mar, [facility] [place] [facility] [address] [id number] [place] [address] Mar, [facility] [address] [id number] [place] [id number] Feb, [facility] [place] [facility] [address] [id number] [place] [address] Feb, [facility] [address] [id number] [place] [id number] January, [facility] [place] [facility] [address] [id number] [place] [address] January, [facility] [address] [id number] [place] [id number] January, [facility] [address] [facility] [id number] [place] [address] January, [facility] [address] [facility] [id number] [place] [id number] Dec, [facility] [address] [facility] [id number] [place] [address] Dec, [facility] [address] [facility] [id number] [place]KE[place] 590444002 Dec, [facility] [address] [facility] [id number] [address] Dec, [facility] [address] [facility] [id number] [place]KE[place] 393789199 Nov, [facility] [place] [facility] [address]00565100[place] [address] Nov, [facility] [place] [facility] [address]00565100[place] [address] Oct, [facility] [place] [facility] [address]00565100[place] [address] Oct, [facility] [place] [facility] [address]00565100[place] [address] Sep, [facility] [address] [facility] [id number] [place]KE[place] 794136611 Sep, [facility] [address] [facility] [id number] [place] 9488036[address] Sep, [facility] [place] [facility] [address] [facility] [id number] [place] [address] Sep, [facility] [address] [facility] [id number] [place] [id number] Aug, [facility] [place] [facility] [address] [facility] [id number] [place] [address] Aug, [facility] [place] [address] [place] [id number] [place] [id number] Jul, [facility] [place] [facility] [address] [id number] [address] Jul, [facility] [address] [facility] [id number] [place]KE[place] 067099172 Jul, [facility] [place] [facility] [address] [facility] [id number] [place] [address] Jul, [facility] [address] [facility] [id number] [place]KE[place] 103464607 Jul, [facility] [place] [facility] [address] [facility] [id number] [place] [address]- [address] Jul, [facility] [address] [facility] [id number] [place] [address] [id number] Jul, [facility] [place] [facility] [address] [place] [id number] [address]- [address] Jul, [facility] [address]00565100[place] [address] Jul, [facility] [address] [facility] [id number] [place] 581843774 Jun, [facility] [place] [facility] [address] [facility] [id number] [place] [address]- 9[address] Jun, [facility] [address] [facility] [id number] [place]KE[place] 500887947 Jun, [facility] [place] [address] [facility] [id number] [place] 148637708 Jun, [facility] [place] [facility] [address] [facility] [id number] [place] [address]- [address] Jun, [facility] [place] [facility] [address] [facility] [id number] [address]- 5[address] Jun, [facility] [address] [facility] [id number] [place], [place] [id number] Jun, [facility] [place] [facility] [address] [facility] [id number] [place] [address]- 85[address] Jun, [facility] [place] [facility] [address]00565100[place] [address]- 45[address] Jun, [facility] [address] [id number] [place] 580370039 May, [facility] [address] [id number] [place] [id number] May, [facility] [address] [id number] [place] [address] May, [facility] [address] [id number] [place] 723650178 May, [facility] [address] [id number] [place] 9[place]01811 Apr, [facility] [address] [id number] [place] 433395300 Feb, [facility] [address] [id number] [place] [id number] Feb, [facility] [address] [facility] [id number] [address]- [address] Feb, [facility] [address] [id number] [place] 540[address]2702 January, [facility] [address] [facility] [id number] [place] [address]- 2546 January, [facility] [address] [id number] [place] 765158135 January, [facility] [address] [id number] [place] [id number] January, [facility] [address] [id number] [place] [id number] January, [facility] [address] [facility] [id number] [place] [address]- 2546 Nov, [facility] [address] [facility] [id number] [place] [address]- 2546 Nov, [facility] [address] [id number] [place] 125724322 Oct, [facility] [address] [id number] [place] 923628600 Oct, [facility] [address] [id number] [place] 415[address]846 Oct, [facility] [address] [id number] [place] 0582[address]358 Oct, [facility] [place] [facility] [address] [facility] [id number] [place] [address]- 5834 Oct, [facility] [place] [facility] [address] [facility] [id number] [place] [address]- 4232 Oct, [facility] [address] [id number] LAKE[place] 955846483 Sep, [facility] [place] [facility] [address] [facility] [id number] [place] [address]- 4[address] Sep, [facility] [address] [id number] [place]KE[place] 683281536 Sep, [facility] [address] [id number] [place] 858768[address] Sep, [facility] [address] [id number] [place] 438541881 Jun, [facility] [address]00565100[place] [address]- [address] Jun, [facility] [address] [id number] [place] 105239346 May, [facility] [address] [id number] [place]KE[place] 474469865 May, [facility] [address] [id number] [place]KE[place] 465168045 Apr, [facility] [address] [id number] LAKE[place] 766312250 Apr, [facility] [address] [id number] [place] 8248[address] Apr, [facility] [address] [id number] [place] 589587803 Mar, [facility] [place] [facility] [address] [facility] [id number] [place] [address]- 6047 Feb, [facility] [address] [facility] [id number] [place]KE[place] 004371033 Nov, [facility] [address] [facility] [id number] [place] [address] Nov, [facility] [address]00565100[place] [address]- 25[address] Nov, [facility] [address] [id number] [address]- 2546 Nov, [facility] [address]00565100[place] [address]- 2546 Nov, [facility] [address] [id number] [place]KE[place] [address]452296 Nov, [facility] [address]00565[address] [id number] Sep, [facility] [address] [id number] [id number] Sep, IMMUNIZATIONS No Known Immunizations SOCIAL HISTORY Never Assessed REASON FOR VISIT Refill request PLAN OF CARE VITAL SIGNS MEDICATIONS No [...] [id number] 03/06/2016 [facility] Hospital[facility] History surgeries Hospitalization History [facility] for abdominal/chest pain 07/2015 Hospitalization History Inpt for lumbar surgery x's 10 days 02/2015 Hospitalization History Pt was in [facility] for rehab from surgery, Dx with UTI -03/2016
--- OUTSIDE RECORDS SUMMARY | 2018-07-27 08:35 | XMS REPORT ---
Author Author JULIANO CARDENAS [facility] Address [address] [place] [address] Care Team Providers Care Scanning Tech Name Role Phone JULIANO CARDENAS Unavailable PROBLEMS Type Condition ICD9-CM Code WFY04-EL Code Onset Dates Condition Status SNOMED Code Problem Acute maxillary sinusitis 461.0 Active 33461851 Problem Hirsutism 704.1 Active 311125149 Problem Actinic keratosis 702.0 Active 325012737 Problem Esophageal reflux 530.81 Active 125133787 Problem Sciatica 724.3 Active 03027013 Problem Acute bronchitis 466.0 Active 90382380 Problem Diverticulosis of colon (without mention of hemorrhage) 562.10 Active 847541076 Problem External hemorrhoids with other complication 455.5 Active 41475764 Problem Internal hemorrhoids without mention of complication 455.0 Active 72119467 Problem Benign paroxysmal positional vertigo 386.11 Active 093624024 Problem Abdominal pain, left lower quadrant 789.04 Active 068102912 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 196898133 Problem Primary localized osteoarthrosis, 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.14 Active 785923995 Problem Hyperlipemia, mixed E78.2 Active 438344326 Problem Otitis media with effusion, right H65.91 Active 23295732 Problem Essential hypertension I10 Active 59200900 Problem Hypothyroidism, unspecified type E03.9 Active 34297728 Problem Neuropathy G62.9 Active 345832930 Problem Other psoriasis 696.1 Active 5240875 Problem Unspecified hypothyroidism 244.9 Active 81892974 Problem Other and unspecified hyperlipidemia 272.4 Active 01372086 Problem Multiple joint pain M25.50 Active 11867672 Problem Esophageal reflux K21.9 Active 126121009 Problem Abnormal mammogram of left breast R92.8 Active 324109844 Problem Acquired hypothyroidism E03.9 Active 115391893 Problem Pain in joint, shoulder region 719.41 Active 061647582 Problem Memory loss 780.93 Active 55909666 Problem Pain in joint, site unspecified 719.40 Active 79047513 Problem Dysphagia, unspecified 787.20 Active 26883271 Problem Anal fissure 565.0 Active 31468345 Problem Unspecified backache 724.5 Active 146667914 Problem Allergic rhinitis due to pollen 477.0 Active 46229755 Problem Lumbago 724.2 Active 548858501 Problem Degeneration of intervertebral disc, site unspecified 722.6 Active 96750969 Problem Chronic airway obstruction, not elsewhere classified 496 Active 01759185 ALLERGIES Substance Reaction Event Type Date Status Penicillin V Potassium hives Drug Allergy Aug, Active Biaxin Unknown Drug Allergy Aug, Active Amoxicillin hives Drug Allergy Aug, Active SOCIAL HISTORY No smoking Hx information available PLAN OF CARE Activity Details Follow Up prn Reason: VITAL SIGNS Height 62 in 2016-09-08 Weight 174.0 lbs 2016-09-08 Temperature 97.9 degrees Fahrenheit 2016-09-08 Heart Rate 104 bpm 2016-09-08 Respiratory Rate 28 2016-09-08 BMI 31.82 kg/m2 2016-09-08 Blood pressure systolic 132 mmHg 2016-09-08 Blood pressure diastolic 86 mmHg 2016-09-08 MEDICATIONS Medication Instructions Dosage Frequency Start Date End Date Duration Status Hydrochlorothiazide 25 MG Orally Once a day 1 tablet 24h 30 days Active Zithromax Z-Wang 250 MG Orally Once a day 2 tab d 1 then 1 tab qd 24h Aug, Sep, 05 days Active Crestor 10 mg Orally Once a day 1 tablet 24h 30 Active Levothyroxine Sodium 75 MCG Orally Once a day TAKE ONE TABLET BY MOUTH ONCE DAILY 24h Active Ventolin HFA 90 MCG/ACT Inhalation every 4 hrs 2 puffs as needed 4h Active Toviaz 4 MG Orally Once a day 1 tablet 24h Active Flexeril 10 MG Orally Once a day-at bedtime 1 tablet Active Baclofen 10 mg Orally Once a day 1 tablet with food or milk 24h Active Nitrofurantoin Macrocrystal 100 MG Orally Once a day 1 capsule 24h Aug, Active Diclofenac Sodium 75MG Orally 2 times a day PRN 1 tablet Active MiraLax Active Fluticasone Propionate 50MCG/AC USE TWO SPRAY(S) IN EACH NOSTRIL ONCE DAILY 30 Active Boniva 150 MG Orally Once per month 1 tablet 30 Active Prelief 340 (65-50) MG (CA-P) Orally 8 time(s) a day 2 tablets Active Omeprazole 20MG TAKE ONE CAPSULE BY MOUTH BEFORE MEAL(S) TWICE DAILY 20 Active RESULTS No Results PROCEDURES Procedure Date Ordered Related Diagnosis Body Site [facility] VISIT ESTABLISHED PATIENT Sep 08, 2016 Office Visit, Est Pt., Level 3 Sep 08, 2016 IMMUNIZATIONS No Known Immunizations
--- OUTSIDE RECORDS SUMMARY | 2018-07-27 08:35 | XMS REPORT ---
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 325602709 Problem Other psoriasis 696.1 Active 1007059 Problem Lumbago 724.2 Active 101354494 Problem Unspecified backache 724.5 Active 329077428 Problem Sciatica 724.3 Active 68961658 Problem Otitis media with effusion, right H65.91 Active 69241687 Problem Anal fissure 565.0 Active 39786243 Problem Esophageal reflux K21.9 Active 862475140 Problem Diverticulosis of colon (without mention of hemorrhage) 562.10 Active 227158272 Problem Essential hypertension I10 Active 52995640 Problem Multiple joint pain M25.50 Active 91209995 Problem Acquired hypothyroidism E03.9 Active 648402605 Problem Non-seasonal allergic rhinitis due to pollen J30.1 Active 69700228 Problem Obesity (BMI 30.0-34.9) E66.9 Active 050833538692731 Problem Acute bronchitis 466.0 Active 15459580 Problem Chronic airway obstruction, not elsewhere classified 496 Active 73475984 Problem Esophageal reflux 530.81 Active 010782920 Problem Neuropathy G62.9 Active 300855530 Problem Abnormal mammogram of left breast R92.8 Active 134198909 Problem Chronic fatigue R53.82 Active 55860213 Problem Hypothyroidism, unspecified type E03.9 Active 95046542 Problem Degeneration of intervertebral disc, site unspecified 722.6 Active 61653409 Problem Internal hemorrhoids without mention of complication 455.0 Active 59782875 Problem Pain in joint, shoulder region 719.41 Active 975562315 Problem Benign paroxysmal positional vertigo 386.11 Active 724113415 Problem Dysphagia, unspecified 787.20 Active 14806082 Problem Acute maxillary sinusitis 461.0 Active 58111749 Problem Memory loss 780.93 Active 42886814 Problem External hemorrhoids with other complication 455.5 Active 50912896 Problem Unspecified hypothyroidism 244.9 Active 37668751 Problem Abdominal pain, left lower quadrant 789.04 Active 857377308 Problem Hyperlipemia, mixed E78.2 Active 054728704 Problem Allergic rhinitis due to pollen 477.0 Active 26390344 Problem Other and unspecified hyperlipidemia 272.4 Active 84834280 ALLERGIES Substance Reaction Event Type Date Status Penicillin V Potassium hives Drug Allergy Jun, Active Biaxin hives Drug Allergy Jun, Active Amoxicillin hives Drug Allergy Jun, Active ENCOUNTERS Encounter Location Date Diagnosis [facility] [address] [facility] [id number] [address] Dec, [address] [place] [address] [id number] Dec, [place] [id number] [place] [address] [id number] Dec, Dilated pore of Mk of back L70.8 ; Seborrheic keratoses L82.1 and Non- seasonal allergic rhinitis due to pollen J30.1 [address] [id number] Dec, [place] [address] [facility] [id number] [id number] Oct, [address] [place] [address] [id number] Oct, Screening breast examination Z12.31 and History of abnormal mammogram Z87.[address] [place] [address] [id number] Sep, [place] [address] [place] [address] [id number] Sep, [facility] [id number] [place] [address] [id number] Sep, [place] [address] [place] [address] [id number] Jun, Obesity (BMI 30.0-34.9) E66.9 ; Chronic fatigue R53.82 ; Neuropathy G62.9 ; Essential hypertension I10 and Encounter for immunization Z23 [place] [id number] [place] [address] [id number] Jun, Neuropathy G62.9 and Essential hypertension I10 [place] [id number] [place] [address] [id number] Apr, [address] [id number] Mar, Neuropathy G62.9 ; Hypothyroidism, unspecified type E03.9 ; Essential hypertension I10 ; Muscle spasm M62.838 and Hyperlipemia, mixed E78.2 [place] [address] [place] [address] [id number] Feb, [place] [id number] [place] [address] [id number] January, [address] [id number] Dec, [place] [address] [place] [address] [id number] Dec, Hypothyroidism, unspecified type E03.9 [place] [address] [place] [address] [id number] Nov, [place] [address] [place] [address] [id number] Nov, Neuropathy G62.9 ; Sinus congestion R09.81 ; Hyperlipemia, mixed E78.2 and Hypothyroidism, unspecified type E03.9 [facility] [place] [id number] [place] [address] [id number] Nov, Neuropathy G62.9 [facility] [place] [id number] [place] [address] [id number] Nov, Sinus congestion R09.81 and Acquired hypothyroidism E03.9 [address] [address] Nov, Acquired hypothyroidism E03.[address] [place] [address] [id number] Oct, [place] [address] [place] [address] [id number] Oct, Sinus congestion R09.81 and Neuropathy G62.9 [place] [address] [place] [address] [id number] Oct, Fever, unspecified R50.9 ; Sinus congestion R09.81 and Neuropathy G62.9 [place] [address] [id number] [place] [address] Oct [address] [place] [address] [id number] Oct, Abnormal mammogram of left breast R92.8 [place] [address] [place] [address] [id number] Sep, Abnormal mammogram R92.8 [place] [address] [place] [address] [id number] Sep, Acquired hypothyroidism E03.9 [place] [address] [place] [address] [id number] Sep, Hypothyroidism, unspecified type E03.9 ; Hyperlipemia, mixed E78.2 and Essential hypertension I10 [address] [place] [address] [id number] Sep, Hypothyroidism, unspecified type E03.9 and Hyperlipemia, mixed E78.[address] [place] [address] [id number] Aug, Acute maxillary sinusitis, recurrence not specified J01.00 [place] [address] [place] [address] [id number] Jul, Hyperlipemia, mixed E78.[address] [place] [address] [id number] Jul, Acquired hypothyroidism E03.9 ; Hyperlipemia, mixed E78.2 ; Multiple joint pain M25.50 ; Esophageal reflux K21.9 ; Otitis media with effusion, right H65.91 and Essential hypertension I10 [address] [id number] Jul, Gastroesophageal reflux disease, esophagitis presence not specified K21.9 [place] [address] [place] [address] [id number] May, [address] [id number] Apr, Cystitis N30.90 and Well woman exam Z01.[address] [id number] Apr, Hematuria R31.9 and Dysuria R30.[address] [id number] Apr, [address] [id number] Apr, Urinary tract infection, site not specified N39.0 and Hematuria, unspecified R31.9 [place] [address] [place] [address] [id number] Dec, [address] [id number] Nov, [address] [id number] Oct, Hyperlipemia, mixed E78.[address] [id number] Oct, Gastroesophageal reflux disease, esophagitis presence not specified K21.9 ; Acute serous otitis media of left ear, recurrence not specified H65.02 ; Hyperlipemia, mixed E78.2 and Hypothyroidism, unspecified type E03.9 [place] [address] [place] [address] [id number] Sep, [place] [address] [place] [address] [id number] Sep, Actinic keratoses L57.0 and Stuffy and runny nose J34.89 [place] [address] [id number] Aug, [address] [id number] Aug, Acute cystitis with hematuria N30.01 [address] [id number] Jul, Reflux esophagitis K21.0 ; Acquired deformities of toe, 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 ; Multiple joint pain M25.50 and Sinus congestion R09.81 [address] [id number] Jul, [address] [place] [address] [id number] Jun, Acute cystitis without hematuria N30.00 ; Dysuria R30.0 ; Flank pain R10.9 and High risk medication use Z79.899 [address] [id number] Jun, Urinary tract infection N39.0 [place] [address] [facility] [id number] [id number] Jun, [place] [id number] [id number] Jun, Urinary tract infection, site not specified 599.0 and [facility] [address] [id number] [id number] Jun, [place] [id number] [id number] May, [place] [id number] [id number] Dec, [facility] [address] [address] Dec, [facility] [address] [place] [address] Dec, [address] [id number] Oct, [facility] [address] [place] [id number] [address] Oct, [facility] [address] [id number] [place] [id number] Sep, [facility] [place] [facility] [address] [facility] [id number] [place] [address] Sep, [facility] [address] [id number] [place] [id number] Sep, [facility] [place] [facility] [address] [facility] [id number] [address] Sep, [facility] [address] [id number] [place] [id number] Aug, [facility] [address] [id number] [place] [id number] Aug, [facility] [place] [facility] [address] [facility] [id number] [place] [address] Aug, [facility] [place] [facility] [address] [facility] [id number] [place] [address] Aug, [facility] [address] [id number] [place] [id number] Aug, [facility] [place] [facility] [address] [facility] [id number] [place] [address] Aug, [facility] [address] [facility] [id number] [place] [id number] Jul, [facility] [place] [facility] [address] [facility] [id number] [address] Jul, [facility] [address] [id number] [place] [id number] Jul, [facility] [place] [facility] [address] [facility] [id number] [address] Jul, [facility] [address] [id number] [place] [id number] Jul, [facility] [place] [facility] [address] [facility] [id number] [place] [address] Jul, [facility] [address] [id number] [place] 993488347 Jul, [facility] [place] [facility] [address] [facility] [id number] [place] [address]- 6[address] Jul, [facility] [place] [facility] [address] [facility] [id number] [place] [address]- [address] Jun, [facility] [place] [facility] [address] [facility] [id number] [place] [address] Jun, [facility] [address] [facility] [id number] [place] [id number] Jun, [facility] [place] [facility] [address] [facility] [id number] [place] [address]- 0369 Jun, [facility] [place] [facility] [address] [facility] [id number] [place] [address]- 0[address] Jun, [facility] [address] [facility] [id number] [place] 353[address]2673 Jun, [facility] [address] [facility] [id number] [place] [id number] Jun, [facility] [place] [facility] [address] [facility] [id number] [place] [address]- [address] Jun, [facility] [address] [facility] [id number] [place] 731558131 Jun, [facility] [place] [facility] [address] [facility] [id number] [place] [address]- [address] Jun, [facility] [address] [facility] [id number] [place] [id number] May, [facility] [place] [facility] [address] [facility] [id number] [place] [address]- [address] May, [facility] [address] [facility] [id number] [place] 488429787 May, [facility] [place] [facility] [address] [facility] [id number] [place] [address] May, [facility] [place] [facility] [address] [facility] [id number] [place] [address]- [address] Apr, [facility] [place] [facility] [address] [id number] [place] [address]- 7[address] Apr, [facility] [address] [id number] [place] 838612283 Apr, [facility] [place] [facility] [address] [facility] [id number] [place] [address]- 6[address] Apr, [facility] [address] [id number] [place] 184594939 Mar, [facility] [place] [facility] [address] [id number] [place] [address]- 79[address] Mar, [facility] [address] [id number] [place] [id number] Feb, [facility] [place] [facility] [address] [facility] [id number] [place] [address]- 287[address] Feb, [facility] [address] [id number] [place] 789999080 January, [facility] [place] [facility] [address] [facility] [id number] [place] [address]- 24[address] January, [facility] [address] [id number] [place] 777832544 January, [facility] [place] [facility] [address] [facility] [id number] [place] [address]- 8[address] January, [facility] [address] [id number] [place] 517060000 Dec, [facility] [place] [facility] [address] [facility] [id number] [place] [address]- 5[address] Dec, [facility] [address] [id number] [place] 7670950[address] Dec, [facility] [place] [facility] [address] [facility] [id number] [place] [address]- 2[address] Dec, [facility] [address] [id number] [place] 590048998 Nov, [facility] [place] [facility] [address] [facility] [id number] [place] 844[place]642[place] [address] Nov, [facility] [place] [facility] [address] [facility] [id number] [place] [address]- [address] Oct, [facility] [place] [facility] [address] [facility] [id number] [place] [address]- 16[address] Oct, [facility] [place] [facility] [address] [facility] [id number] [place] [address]- [address] Sep, [facility] [address] [id number] [place] 1037427[address] Sep, [facility] [address] [facility] [id number] [place] 883688471 Sep, [facility] [place] [facility] [address] [facility] [id number] [place] [address]- 8[address] Sep, [facility] [address] [facility] [id number] [place] 523969273 Aug, [facility] [place] [facility] [address] [facility] [id number] [place] [address]- 38[address] Aug, [facility] [address] [facility] [id number] [place] 901182327 Jul, [facility] [place] [facility] [address] [facility] [id number] [place] [address] 8[address] Jul, [facility] [address] [facility] [id number] [place] 123910621 Jul, [facility] [place] [facility] [address] [id number] [address] Jul, [facility] [address] [facility] [id number] [place] 631053748 Jul, [facility] [place] [facility] [address] [facility] [id number] [place] [address]- [address] Jul, [facility] [address] [facility] [id number] [place] 785360169 Jul, [facility] [place] [facility] [address] [id number] [address]- [address] Jul, [facility] [place] [facility] [address] [facility] [id number] [place] [address]- [address] Jul, [facility] [address] [id number] [place] 091577673 Jun, [facility] [place] [facility] [address] [facility] [id number] [place] [address]- 99[address] Jun, [facility] [address] [id number] [place] 948697536 Jun, [facility] [address] [id number] [place] 694988195 Jun, [facility] [place] [facility] [address] [facility] [id number] [place] [address]- 9[address] Jun, [facility] [place] [facility] [address] [facility] [id number] [place] [address]- 9676 Jun, [facility] [address] [id number] [place] 098325980 Jun, [facility] [place] [facility] [address] [place] [address]- [address] Jun, [facility] [place] [facility] [address] [id number] [address]- 58[address] Jun, [facility] [address] [id number] [place] 378509509 May, [facility] [address] [id number] [place] 535425334 May, [facility] [address] [id number] [place] 126566755 May, [facility] [address] [id number] [place] 354699248 May, [facility] [address] [id number] [place] 156499460 Apr, [facility] [address] [id number] [place] 833115708 Feb, [facility] [address] [id number] [place] 139049382 Feb, [facility] [place] [facility] [address] [address]- 24[address] Feb, [facility] [address] [id number] [place] 273[address]236 January, [facility] [address] [facility] [id number] [place] [address]- [address]46 January, [facility] [address] [id number] [place] 630577007 January, [facility] [address] [id number] [place] 306563436 January, [facility] [address] [id number] [place] 404021117 January, [facility] [address]005[address]100[place] [address]- [address] Nov, [facility] [address] [id number] [address]- 25[address] Nov, [facility] [address] [id number] [place] 568859275 Oct, [facility] [address] [id number] [place] 056145518 Oct, [facility] [address] [id number] [place] 981996259 Oct, [facility] [address] [facility] [id number] [place] 790579478 Oct, [facility] [address]00565100[place] [address]- [address] Oct, [facility] [address] [facility] [id number] [place] [address]- 2546 Oct, [facility] [address] [facility] [id number] [place] 449179458 Sep, [facility] [address] [facility] [id number] [place] [address]- 2546 Sep, [facility] [address] [id number] [place] 826353458 Sep, [facility] [address] [facility] [id number] [place] 942577579 Sep, [facility] [address] [facility] [id number] [place] 843880070 Jun, [facility] [address] [id number] [address]- [address]46 Jun, [facility] [address] [id number] [place] 348819464 May, [facility] [address] [id number] [place] 938380741 May, [facility] [address] [id number] [place] 887430651 Apr, [facility] [address] [id number] [place] 999429266 Apr, [facility] [address] [id number] [place] 151477314 Apr, [facility] [id number] [place] 575397540 Mar, [facility] [address] [place] [address]- [address] Feb, [facility] [id number] [place] 168636730 Nov, [facility] [id number] [place] 682928726 Nov, [facility] [address] [id number] [address]- 2546 Nov, [facility] [id number] [place] [address]- 2546 Nov, [facility] [address] [id number] [address]- 2546 Nov, [facility] [id number] [place] 255261642 Nov, [facility] [address] [id number] [id number] Sep, [facility] [address] [id number] [id number] Sep, IMMUNIZATIONS Vaccine Route Administration Date Status FLUARIX QUAD (3 AND UP) 2017 IM Intramuscular Jun 28, 2017 Administered PCV 13 IM Intramuscular Jun 28, 2017 Administered SOCIAL HISTORY Never Assessed REASON FOR VISIT HTN/Neuropathy, depression screen John JENKINS PLAN OF CARE Activity Details Follow Up 4 Weeks Reason:CHM thyroid VITAL SIGNS Height 62 in 2017-06-28 Weight 171.0 lbs 2017-06-28 Temperature 97.6 degrees Fahrenheit 2017-06-28 Heart Rate 92 bpm 2017-06-28 Respiratory Rate 18 2017-06-28 BMI 31.27 kg/m2 2017-06-28 Blood pressure systolic 118 mmHg 2017-06-28 Blood pressure diastolic 68 mmHg 2017-06-28 MEDICATIONS Medication Instructions Dosage Frequency Start Date End Date Duration Status Levothyroxine Sodium 75MCG Orally Once a day 1 tablet 24h 90 Active Toviaz 4 MG Orally Once a day 1 tablet 24h Active Boniva 150 MG Orally Once per month 1 tablet 30 Active Prelief 340 (65-50) MG (CA-P) Orally 8 time(s) a day 2 tablets Active MiraLax Active Ventolin HFA 90 MCG/ACT Inhalation every 4 hrs 2 puffs as needed 4h 0 Active Baclofen 10 mg Orally Once a day 1 tablet with food or milk 24h 0 Active Diclofenac Sodium 75 mg Orally twice a day as needed 1 tablet 30 Active Fluticasone Propionate 50 mcg/act Nasally Once a day 2 spray in each nostril 24h 0 Active Rosuvastatin Calcium 10 mg Orally Once a day 1 tablet 24h Nov, 90 Active Omeprazole 20 mg Orally 2 times a day 1 capsule 12h 30 days Active RESULTS No Results PROCEDURES Procedure Date Ordered Result Body [facility] Jun [facility], 2017 VENIPUNCT, ROUTINE* Jun 28, 2017 [facility] VISIT ESTABLISHED PATIENT Jun 28, 2017 PCV 13 Jun 28, 2017 FLUARIX QUAD (3 & UP)-[id number] 28, 2017 IMMUNIZATION ADMIN, EACH ADD (please include units) Jun 28, 2017 SINGLE IMMUNIZATION ADMIN Jun 28, 2017 INSTRUCTIONS MEDICATIONS ADMINISTERED No Known Medications [...] 03/06/2016 Surgical History Hemmroidectomy-Dr. YANG in [place] 2013 Hospitalization History surgeries Hospitalization History [facility] for abdominal/chest pain 07/2015 Hospitalization History Inpt for lumbar surgery x's 10 days 02/2015 Hospitalization History Pt was in [facility] for rehab from surgery, Dx with UTI
--- OUTSIDE RECORDS SUMMARY | 2018-07-27 08:35 | XMS REPORT ---
Author Author YU WEBSTER [facility] eClinicalWorks Address Unknown Phone Unavailable Care Team Providers Care Electrolysist Name Role Phone YU WEBSTER CP Unavailable [...] Instructions Start Date End Date Status Dosage Nitrofurantoin Macroc[facility] [address]-64 50 MG Orally Once a day Aug 23, 2015 1 capsule at bedtime Results No Known Results Summary Purpose eClinicalWorks Submission
--- OUTSIDE RECORDS SUMMARY | 2018-07-27 08:35 | XMS REPORT ---
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 171228413 Problem Other psoriasis 696.1 Active 5827216 Problem Lumbago 724.2 Active 063191126 Problem Unspecified backache 724.5 Active 378984493 Problem Sciatica 724.3 Active 99086769 Problem Otitis media with effusion, right H65.91 Active 27394589 Problem Anal fissure 565.0 Active 90582760 Problem Esophageal reflux K21.9 Active 964245340 Problem Diverticulosis of colon (without mention of hemorrhage) 562.10 Active 261228583 Problem Essential hypertension I10 Active 76857307 Problem Multiple joint pain M25.50 Active 91492439 Problem Acquired hypothyroidism E03.9 Active 274185507 Problem Non-seasonal allergic rhinitis due to pollen J30.1 Active 91478648 Problem Obesity (BMI 30.0-34.9) E66.9 Active [id number] Problem Acute bronchitis 466.0 Active 76619232 Problem Chronic airway obstruction, not elsewhere classified 496 Active 31778309 Problem Esophageal reflux 530.81 Active 663645402 Problem Neuropathy G62.9 Active 509861094 Problem Abnormal mammogram of left breast R92.8 Active 771541720 Problem Chronic fatigue R53.82 Active 33814560 Problem Hypothyroidism, unspecified type E03.9 Active 79736552 Problem Degeneration of intervertebral disc, site unspecified 722.6 Active 65472204 Problem Internal hemorrhoids without mention of complication 455.0 Active 22453236 Problem Pain in joint, shoulder region 719.41 Active 972301505 Problem Benign paroxysmal positional vertigo 386.11 Active 963823017 Problem Dysphagia, unspecified 787.20 Active 20201083 Problem Acute maxillary sinusitis 461.0 Active 83152837 Problem Memory loss 780.93 Active 99579678 Problem External hemorrhoids with other complication 455.5 Active 70410161 Problem Unspecified hypothyroidism 244.9 Active 84670700 Problem Abdominal pain, left lower quadrant 789.04 Active 418420571 Problem Hyperlipemia, mixed E78.2 Active 627443006 Problem Allergic rhinitis due to pollen 477.0 Active 78665974 Problem Other and unspecified hyperlipidemia 272.4 Active 90476951 ALLERGIES No Information ENCOUNTERS Encounter Location Date Diagnosis [facility] [address], [place] [address] Dec, [place] [id number] [place] [address] [id number] Dec, [place] [id number] [place] [address] [id number] Dec, Dilated pore of Mk of back L70.8 ; Seborrheic keratoses L82.1 and Non- seasonal allergic rhinitis due to pollen J30.1 [address] [place] [address] [id number] Dec, [address] [id number] [place] [id number] Oct, [place] [id number] [place] [address] [id number] Oct, Screening breast examination Z12.31 and History of abnormal mammogram Z87.898 [place] [id number] [place] [address] [id number] Sep, [address] [place] [address] [id number] Sep, [address] [place] [address] [id number] Sep, [place] [id number] [place] [address] [id number] Jun, Obesity (BMI 30.0-34.9) E66.9 ; Chronic fatigue R53.82 ; Neuropathy G62.9 ; Essential hypertension I10 and Encounter for immunization Z23 [place] [id number] [place] [address] [id number] Jun, Neuropathy G62.9 and Essential hypertension I10 [address] [id number] Apr, [address] [id number] Mar, Neuropathy G62.9 ; Hypothyroidism, unspecified type E03.9 ; Essential hypertension I10 ; Muscle spasm M62.838 and Hyperlipemia, mixed E78.2 [place] [id number] [place] [address] [id number] Feb, [place] [id number] [place] [address] [id number] January, [place] [id number] [place] [address] [id number] Dec, [place] [id number] [place] [address] [id number] Dec, Hypothyroidism, unspecified type E03.9 [place] [id number] [place] [address] [id number] Nov, [place] [address] [place] [address] [id number] Nov, Neuropathy G62.9 ; Sinus congestion R09.81 ; Hyperlipemia, mixed E78.2 and Hypothyroidism, unspecified type E03.9 [facility] [place] [id number] [place] [address] [id number] Nov, Neuropathy G62.9 [facility] [place] [id number] [place] [address] [id number] Nov, Sinus congestion R09.81 and Acquired hypothyroidism E03.9 [place] [id number] [place] [address] [id number] Nov, Acquired hypothyroidism E03.9 [address] [id number] Oct, [address] [phone] Oct, Sinus congestion R09.81 and Neuropathy G62.9 [address] [id number] Oct, Fever, unspecified R50.9 ; Sinus congestion R09.81 and Neuropathy G62.9 [place] [address] [id number] [place] [address] Oct [address] [place] [address] [id number] Oct, Abnormal mammogram of left breast R92.8 [place] [id number] [place] [address] [id number] Sep, Abnormal mammogram R92.8 [place] [id number] [place] [address] [id number] Sep, Acquired hypothyroidism E03.9 [address] [id number] Sep, Hyperlipemia, mixed E78.2 ; Hypothyroidism, unspecified type E03.9 and Essential hypertension I10 [address] [id number] Sep, Hypothyroidism, unspecified type E03.9 and Hyperlipemia, mixed E78.[address] [place] [address] [id number] Aug, Acute maxillary sinusitis, recurrence not specified J01.00 [address] [id number] Jul, Hyperlipemia, mixed E78.2 [place] [id number] [place] [address] [id number] Jul, Acquired hypothyroidism E03.9 ; Hyperlipemia, mixed E78.2 ; Multiple joint pain M25.50 ; Esophageal reflux K21.9 ; Otitis media with effusion, right H65.91 and Essential hypertension I10 [place] [id number] [place] [address] [id number] Jul, Gastroesophageal reflux disease, esophagitis presence not specified K21.9 [place] [address] [place] [id number] [place] [id number] May, [address] [id number] Apr, Cystitis N30.90 and Well woman exam Z01.[address] [id number] Apr, Hematuria R31.9 and Dysuria R30.[address] [id number] Apr, [address] [id number] Apr, Urinary tract infection, site not specified N39.0 and Hematuria, unspecified R31.[address] [id number] Dec, [place] [address] [id number] Nov, [place] [id number] [place] [address] [id number] Oct, Hyperlipemia, mixed E78.2 [place] [address] [place] [address] [id number] Oct, Gastroesophageal reflux disease, esophagitis presence not specified K21.9 ; Acute serous otitis media of left ear, recurrence not specified H65.02 ; Hypothyroidism, unspecified type E03.9 and Hyperlipemia, mixed E78.2 [address] [place] [address] [id number] Sep, [address] [id number] Sep, Actinic keratoses L57.0 and Stuffy and runny nose J34.89 [place] [address] [place] [address] [id number] Aug, [address] [id number] Aug, Acute cystitis with hematuria N30.01 [address] [id number] Jul, Reflux esophagitis K21.0 ; Acquired deformities of toe, 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 ; Multiple joint pain M25.50 and Sinus congestion R09.81 [address] [id number] Jul, [place] [address] [place] [address] [id number] Jun, Acute cystitis without hematuria N30.00 ; Dysuria R30.0 ; Flank pain R10.9 and High risk medication use Z79.899 [address] [place] [address] [id number] Jun, Urinary tract infection N39.[address] [id number] [place] [id number] Jun, [address] [place] [address] [id number] Jun, Urinary tract infection, site not specified 599.0 and [facility] [id number] [place] [address] [id number] Jun, [place] [id number] [id number] May, [place] [id number] [place] [address] [id number] Dec, [facility] [address] [place] [address] Dec, [facility] [address] [place] [address] Dec, [address] [place] [address] [id number] Oct, [facility] [address] [place] [address] Oct, [place] [id number] [id number] Sep, [facility] [place] [facility] [address] [id number] [place] [address] Sep, [facility] [address] [id number] [place] [id number] Sep, [facility] [place] [facility] [address] [facility] [id number], [place] [address] Sep, [facility] [address] [id number] [place] [id number] Aug, [facility] [address] [id number] [place] [id number] Aug, [facility] [place] [facility] [address] [facility] [id number] [place] [address] Aug, [facility] [place] [facility] [address], [place] [address] Aug, [facility] [address] [id number] [place] [id number] Aug, [facility] [place] [facility] [address] [facility] [id number] [address] Aug, [facility] [address] [facility] [id number] [place] [id number] Jul, [facility] [place] [facility] [address] [facility] [id number], [place] [address] Jul, [facility] [address] [id number] [place] [id number] Jul, [facility] [place] [facility] [address] [facility] [id number], [place] [address] Jul, [facility] [address] [id number] [place] [id number] Jul, [facility] [place] [facility] [address] [facility] [id number], [place] [address] Jul, [facility] [address] [id number] [place] [id number] Jul, [facility] [place] [facility] [address] [facility] [id number], [place] [address]- 1610 Jul, [facility] [place] [facility] [address] [facility] [id number], [place] [address] 43[address] Jun, [facility] [place] [facility] [address] [facility] [id number], [place] [address] 17[address] Jun, [facility] [address] [facility] [id number] [place] [id number] Jun, [facility] [place] [facility] [address] [facility] [id number], [place] [address] 12[address] Jun, [facility] [place] [facility] [address] [facility] [id number], [place] [address]- 7975 Jun, [facility] [address] [facility] [id number] [place]ALL[place] [id number] Jun, [facility] [address] [facility] [id number] [place]ALLS[place] [id number] Jun, [facility] [place] [facility] [address] [facility] [id number], [place] [address] 6[address] Jun, [facility] [address] [facility] [id number] [place] [id number] Jun, [facility] [place] [facility] [address] [facility] [id number], [place] [address]- 5[address] Jun, [facility] [address] [facility] [id number] [place]ALL[place] [id number] May, [facility] [place] [facility] [address] [facility] [id number], [place] [address] May, [facility] [address] [facility] [id number] [place]ALL[place] [address] May, [facility] [place] [facility] [address] [facility] [id number], [place] [address]- [address]37 May, [facility] [place] [facility] [address] [facility] [id number], [place] [address]- 48[address] Apr, [facility] [place] [facility] [address] [facility] [id number], [place] [address]- [address] Apr, [facility] [address] [id number] [place] [id number] Apr, [facility] [place] [facility] [address] [facility] [id number] [place] [address]- 6[address] Apr, [facility] [address] [facility] [id number] [place] [id number] Mar, [facility] [place] [facility] [address] [facility] [id number] [place] [address]- 8106 Mar, [facility] [address] [facility] [id number] [place] [id number] Feb, [facility] [place] [facility] [address] [facility] [id number] [place] [address]- 4[address] Feb, [facility] [address] [facility] [id number] [place] [id number] January, [facility] [place] [facility] [address] [place] [address] January, [facility] [address] [facility] [id number] [place] [id number] January, [facility] [place] [facility] [address] [id number], [place] [address] January, [facility] [address] [facility] [id number] [place] [address] Dec, [facility] [place] [facility] [address] [facility] [id number], [place] [address]- [address] Dec, [facility] [address] [facility] [id number] [place]ALL[place] [address] Dec, [facility] [place] [facility] [address] [facility] [id number] [place] [address]- 76[address] Dec, [facility] [address] [facility] [id number] [place] [id number] Nov, [facility] [place] [facility] [address] [facility] [id number] [place] [address]- 36[address] Nov, [facility] [place] [facility] [address] [place] [id number] [place] [address]- 287[address] Oct, [facility] [place] [facility] [address] [facility] [id number], [place] [address]- 6069 Oct, [facility] [place] [facility] [address] [facility] [id number], [place] [address]- [address] Sep, [facility] [address] [id number] [place] [id number] Sep, [facility] [address] [id number] [place] [id number] Sep, [facility] [place] [facility] [address] [facility] [id number], [place] [address] Sep, [facility] [address] [facility] [id number] [place] [id number] Aug, [facility] [place] [facility] [address], [place] [address]- [address] Aug, [facility] [id number] [place] [address]254[address] Jul, [facility] [place] [facility] [address], [place] [address] Jul, [facility] [address] [place] [address] [id number] [place] [address] Jul, [facility] [place] [facility] [address], [place] [address] Jul, [facility] [id number] [place] [address] Jul, [facility] [place] [facility] [address] [facility] [id number], [place] [address]- 64[address] Jul, [facility] [address] [facility] [id number] [place] [address]49 Jul, [facility] [place] [facility] [address] [facility] [id number], [place] [address]- 2398 Jul, [facility] [place] [facility] [address] [facility] [id number], [place] [address]- [address] Jul, [facility] [address] [facility] [id number] [place] [address] Jun, [facility] [address] [facility] [id number], [place] [address]- 2546 Jun, [facility] [address] [id number] [place] 2[address] Jun, [facility] [address] [id number] [place] 491[address]25 Jun, [facility] [address] [facility] [id number], [place] [address]- [address] Jun, [facility] [address] [facility] [id number], [place] [address]- 5090 Jun, [facility] [address] [id number] [place] 836972129 Jun, [facility] [address] [facility] [id number], [place] [address] 2546 Jun, [facility] [address], [place] [address]- 89[address] Jun, [facility] [address] [id number] [place] 433356582 May, [facility] [address] [id number] [place] 44[address] May, [facility] [address] [id number] [place] 656288793 May, [facility] [address] [id number] [place]ALL[place] 905709609 May, [facility] [address] [id number] [place] 561934851 Apr, [facility] [address] [id number] [place] 9695807[address] Feb, [facility] [address] [id number] [place] 082654840 Feb, [facility] [address] [facility] [id number], [place] [address]- 2546 Feb, [facility] [address] [id number] [place]ALL[place] 564[address]1811 January, [facility] [place] [facility] [address] [facility] [id number], [place] [address]- 2546 January, [facility] [address] [id number] [place] [id number] January, [facility] [address] [facility] [id number] [place] 1942[address]15 January, [facility] [address] [facility] [id number] [place] [address]27[address] January, [facility] [address] [facility] [id number], [place] [address]- 2546 Nov, [facility] [address], [place] [address]- 2546 Nov, [facility] [address] [id number] [place] [address] Oct, [facility] [id number] [place] 345162461 Oct, [facility] [address] [id number] [place] 920038103 Oct, [facility] [address] [facility] [id number] [place] 859224157 Oct, [facility] [address], [place] [address]- 2546 Oct, [facility] [id number], [place] [address]- 2546 Oct, [facility] [address] [id number] [place] 414390615 Sep, [facility] [address] [facility] [id number], [place] [address]- 2546 Sep, [facility] [address] [facility] [id number] [place] 710194973 Sep, [facility] [address] [facility] [id number] [place]ALL[place] 846276729 Sep, [facility] [address] [id number] [place] [address] Jun, [facility] [address], [place] [address]- [address] Jun, [facility] [address] [id number] [place] [id number] May, [facility] [address] [id number] [place] [id number] May, [facility] [address] [id number] [place] [id number] Apr, [facility] [address] [id number] [place] [id number] Apr, [facility] [address] [id number] [place] [address] Apr, [facility] [address] [id number] [place] [id number] Mar, [facility] [address], [place] [address] Feb, [facility] [id number] [place] [address] Nov, [facility] [id number] [place] [address] Nov, [facility] [address] [place] [address]- 2546 Nov, [facility] [address]005[address], [place] [address]- 2546 Nov, [facility] [address], [place] [address]- 2546 Nov, [facility] [id number] [place] [id number] Nov, [facility] [id number] [place]ALL[place] 508[address]8875 Sep, [facility] [id number] [place]ALLS[place] 890887[address] Sep, IMMUNIZATIONS No Known Immunizations SOCIAL HISTORY Never Assessed REASON FOR VISIT Refill request PLAN OF CARE VITAL SIGNS MEDICATIONS Medication Instructions Dosage Frequency Start Date End Date Duration Status Diclofenac Sodium 75 mg Orally twice a day as needed 1 tablet 30 Active Omeprazole 20 mg Orally 2 times a day 1 capsule 12h 30 days Active Hydrochlorothiazide 25MG oral daily 1 tablet 24h 30 days Active Rosuvastatin Calcium 10 mg Orally Once a day 1 tablet 24h Nov, 30 days Active RESULTS No Results PROCEDURES [...] L4-S1 03/06/2016 Surgical History Hemmroidectomy-Dr. YANG in [place] 2013 Hospitalization History surgeries Hospitalization History [facility] for abdominal/chest pain 07/2015 Hospitalization History Inpt for lumbar surgery x's 10 days 02/2015 Hospitalization History Pt was in [facility] for rehab from surgery, Dx with UTI -03/2016
--- OUTSIDE RECORDS SUMMARY | 2018-07-27 08:36 | XMS REPORT ---
Author Author JULIANO CARDENAS Organization [employer] Address Unknown Phone Unavailable Care Team Providers [facility] Name Role Phone JULIANO CARDENAS CP Unavailable Allergies No Known Allergies Problems Problem Type Condition Code Onset Dates Condition Status Problem Pain in joint, shoulder region 719.41 [...] Primary localized osteoarthrosis, hand 715.14 Active Medications No Known Medications Results No Known Results Summary Purpose [employer] Submission
--- OUTSIDE RECORDS SUMMARY | 2018-07-27 08:36 | XMS REPORT ---
Author Author ROOPA FOSTER [facility] Address [address] [place] [address] Care Team Providers Care Phlebotomist Medical Lab Assistant Name Role Phone ROOPA FOSTER Unavailable PROBLEMS Type Condition ICD9-CM Code [id number] Code Onset Dates Condition Status SNOMED Code Problem Degeneration of intervertebral disc, site unspecified 722.6 Active 58245636 Problem Memory loss 780.93 Active 27057703 Problem Pain in joint, site unspecified 719.40 Active 22295764 Problem Pain in joint, shoulder region 719.41 Active 965893372 Problem Primary localized osteoarthrosis, hand 715.14 Active 775078873 Problem Hirsutism 704.1 Active 746406787 Problem Actinic keratosis 702.0 Active 658935 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 168069407 Problem Other psoriasis 696.1 Active 8230639 Problem Other and unspecified hyperlipidemia 272.4 Active 46850714 Problem Lumbago 724.2 Active 343328476 Problem Unspecified hypothyroidism 244.9 Active 74508511 Problem Unspecified backache 724.5 Active 472711115 Problem Hyperlipemia, mixed E78.2 Active 331224121 Problem Essential hypertension I10 Active 21114093 Problem Esophageal reflux K21.9 Active 034596914 Problem Hypothyroidism, unspecified type E03.9 Active 82165166 Problem Neuropathy G62.9 Active 202598247 Problem Diverticulosis of colon (without mention of hemorrhage) 562.10 Active 728541437 Problem Anal fissure 565.0 Active 63176781 Problem Sciatica 724.3 Active 34643281 Problem Otitis media with effusion, right H65.91 Active 34301418 Problem Acquired hypothyroidism E03.9 Active 533742203 Problem Abnormal mammogram of left breast R92.8 Active 616293939 Problem Multiple joint pain M25.50 Active 69351458 Problem Abdominal pain, left lower quadrant 789.04 Active 862269615 Problem Acute bronchitis 466.0 Active 24077078 Problem Dysphagia, unspecified 787.20 Active 57916843 Problem Acute maxillary sinusitis 461.0 Active 82065771 Problem Esophageal reflux 530.81 Active 551547245 Problem Chronic airway obstruction, not elsewhere classified 496 Active 24247251 Problem Benign paroxysmal positional vertigo 386.11 Active 224724661 Problem Allergic rhinitis due to pollen 477.0 Active 49311578 Problem External hemorrhoids with other complication 455.5 Active 93566625 Problem Internal hemorrhoids without mention of complication 455.0 Active 10287826 ALLERGIES No Information SOCIAL HISTORY Never Assessed PLAN OF CARE VITAL SIGNS MEDICATIONS Medication Instructions Dosage Frequency Start Date End Date Duration Status Sudafed 30 MG Orally every 6 hrs for sinus congestion 1 tablet as needed 0 days Active Levothyroxine Sodium 75 mcg Orally Once a day 1 tablet 24h 0 days Active RESULTS [...] L4-S1 03/06/2016 Surgical History Hemmroidectomy-Dr. YANG in [place] 2013 Hospitalization History surgeries Hospitalization History [facility] for abdominal/chest pain 07/2015 Hospitalization History Inpt for lumbar surgery x's 10 days 02/2015 Hospitalization History Pt was in [facility] for rehab from surgery, Dx with UTI
--- OUTSIDE RECORDS SUMMARY | 2018-07-27 08:36 | XMS REPORT ---
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 961481085 Problem Other psoriasis 696.1 Active 0743653 Problem Lumbago 724.2 Active 669418108 Problem Unspecified backache 724.5 Active 717657368 Problem Hyperlipemia, mixed E78.2 Active 078138267 Problem Sciatica 724.3 Active 12220553 Problem Otitis media with effusion, right H65.91 Active 04908594 Problem Anal fissure 565.0 Active 22634693 Problem Esophageal reflux K21.9 Active 580064657 Problem Acquired hypothyroidism E03.9 Active 001992242 Problem Essential hypertension I10 Active 40751203 Problem Obesity (BMI 30.0-34.9) E66.9 Active 348921444028773 Problem Chronic fatigue R53.82 Active 21889932 Problem Chronic airway obstruction, not elsewhere classified 496 Active 23690520 Problem Esophageal reflux 530.81 Active 283116693 Problem Diverticulosis of colon (without mention of hemorrhage) 562.10 Active 917055449 Problem Abnormal mammogram of left breast R92.8 Active 183220654 Problem Multiple joint pain M25.50 Active 31615511 Problem Hypothyroidism, unspecified type E03.9 Active 18953210 Problem Neuropathy G62.9 Active 574199405 Problem Memory loss 780.93 Active 75270026 Problem External hemorrhoids with other complication 455.5 Active 04581760 Problem Degeneration of intervertebral disc, site unspecified 722.6 Active 99674891 Problem Internal hemorrhoids without mention of complication 455.0 Active 02701572 Problem Abdominal pain, left lower quadrant 789.04 Active 215167445 Problem Acute bronchitis 466.0 Active 00534382 Problem Dysphagia, unspecified 787.20 Active 20183270 Problem Acute maxillary sinusitis 461.0 Active 84640501 Problem Other and unspecified hyperlipidemia 272.4 Active 41818662 Problem Unspecified hypothyroidism 244.9 Active 88471948 Problem Benign paroxysmal positional vertigo 386.11 Active 171098427 Problem Allergic rhinitis due to pollen 477.0 Active 26388270 ALLERGIES No Information SOCIAL HISTORY Never Assessed PLAN OF CARE VITAL SIGNS MEDICATIONS Medication Instructions Dosage Frequency Start Date End Date Duration Status Diclofenac Sodium 75 mg Orally twice a day as needed 1 tablet 2 Feb, 2017 0 days Active RESULTS No Results PROCEDURES [...] L4-S1 03/06/2016 Surgical History Hemmroidectomy-Dr. YANG in [place] 2013 Hospitalization History surgeries Hospitalization History [facility] for abdominal/chest pain 07/2015 Hospitalization History Inpt for lumbar surgery x's 10 days 02/2015 Hospitalization History Pt was in [facility] for rehab from surgery, Dx with UTI
--- OUTSIDE RECORDS SUMMARY | 2018-07-27 08:36 | XMS REPORT ---
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 Active 476719735 Problem Hirsutism 704.1 Active 205030012 Problem Actinic keratosis 702.0 Active 378492 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 987123785 Problem Other psoriasis 696.1 Active 4590059 Problem Other and unspecified hyperlipidemia 272.4 Active 57771731 Problem Lumbago 724.2 Active 510185433 Problem Unspecified hypothyroidism 244.9 Active 21413898 Problem Unspecified backache 724.5 Active 038213384 Problem Hyperlipemia, mixed E78.2 Active 423104110 Problem Essential hypertension I10 Active 64282954 Problem Esophageal reflux K21.9 Active 291822748 Problem Hypothyroidism, unspecified type E03.9 Active 20202644 Problem Neuropathy G62.9 Active 068528333 Problem Diverticulosis of colon (without mention of hemorrhage) 562.10 Active 018061804 Problem Anal fissure 565.0 Active 21087954 Problem Sciatica 724.3 Active 66088547 Problem Otitis media with effusion, right H65.91 Active 56376814 Problem Acquired hypothyroidism E03.9 Active 254182110 Problem Abnormal mammogram of left breast R92.8 Active 881623384 Problem Multiple joint pain M25.50 Active 06543489 Problem Abdominal pain, left lower quadrant 789.04 Active 321725215 Problem Acute bronchitis 466.0 Active 68229150 Problem Dysphagia, unspecified 787.20 Active 82513319 Problem Acute maxillary sinusitis 461.0 Active 22396757 Problem Esophageal reflux 530.81 Active 111639977 Problem Chronic airway obstruction, not elsewhere classified 496 Active 56475314 Problem Benign paroxysmal positional vertigo 386.11 Active 047866831 Problem Allergic rhinitis due to pollen 477.0 Active 30309086 Problem External hemorrhoids with other complication 455.5 Active 56503491 Problem Internal hemorrhoids without mention of complication 455.0 Active 60540093 ALLERGIES Substance Reaction Event Type Date Status Penicillin V Potassium hives Drug Allergy Oct, Active Biaxin Unknown Drug Allergy Oct, Active Amoxicillin hives Drug Allergy Oct, Active SOCIAL HISTORY Never Assessed PLAN OF CARE Activity Details Follow Up 1 Week, prn Reason:if s/s worsen VITAL SIGNS Height 62 in 2016-10-27 Weight 175.4 lbs 2016-10-27 Temperature 99.9 degrees Fahrenheit 2016-10-27 Heart Rate 100 bpm 2016-10-27 Respiratory Rate 18 2016-10-27 BMI 32.08 kg/m2 2016-10-27 Blood pressure systolic 110 mmHg 2016-10-27 Blood pressure diastolic 84 mmHg 2016-10-27 MEDICATIONS Medication Instructions Dosage Frequency Start Date End Date Duration Status Sudafed 30 MG Orally every 6 hrs for sinus congestion 1 tablet as needed Oct, 14 days Active Fluticasone Propionate 50MCG/AC Nasally Once a day 2 spray in each nostril 24h 0 days Active Boniva 150 MG Orally Once per month 1 tablet 30 Active Omeprazole 20MG TAKE ONE CAPSULE BY MOUTH BEFORE MEAL(S) TWICE DAILY 20 Active Baclofen 10 mg Orally Once a day 1 tablet with food or milk 24h Active MiraLax Active Flexeril 10 MG Orally Once a day-at bedtime 1 tablet Active Levothyroxine Sodium 75 MCG Orally Once a day 1 tablet 24h 0 days Active Toviaz 4 MG Orally Once a day 1 tablet 24h Active Ventolin HFA 90 MCG/ACT Inhalation every 4 hrs 2 puffs as needed 4h Active Gabapentin 100 mg Orally 3 times a day (increase from once per day to 3 times per day over the first week) 1 capsule Oct, 0 days Active Diclofenac Sodium 75MG Orally 2 times a day PRN 1 tablet 0 days Active Hydrochlorothiazide 25 MG Orally Once a day 1 tablet 24h 0 days Active Crestor 20 mg Orally Once a day 1 tablet 24h 0 days Active Prelief 340 (65-50) MG (CA-P) Orally 8 time(s) a day 2 tablets Active RESULTS Name Result Date Reference Range INFLUENZA A & B (IN HOUSE) 2016-10-27 INFLUENZA A negative INFLUENZA B negative Control positive Lot # [id number] Exp date 01/30/17 PROCEDURES Procedure Date Ordered Result Body Site INFLUENZA ASSAY W/OPTIC Oct 27, 2016 [facility] VISIT ESTABLISHED PATIENT Oct 27, 2016 IMMUNIZATIONS No Known Immunizations MEDICAL (GENERAL) [...] L4-S1 03/06/2016 Surgical History Hemmroidectomy-Dr. YANG in [place] 2013 Hospitalization History surgeries Hospitalization History [facility] for abdominal/chest pain 07/2015 Hospitalization History Inpt for lumbar surgery x's 10 days 02/2015 Hospitalization History Pt was in [facility] for rehab from surgery, Dx with UTI
--- OUTSIDE RECORDS SUMMARY | 2018-07-27 08:36 | XMS REPORT ---
Author Author JULIANO CARDENAS Organization [employer] Address Unknown Phone Unavailable Care Team Providers Care Speech Language Pathologist Travel Name Role Phone JULIANO CARDENAS CP Unavailable Allergies, Adverse Reactions, Alerts Substance Reaction Event Type Penicillin V Potassium hives Drug Allergy Biaxin Info Not Available Drug Allergy Amoxicillin hives Drug Allergy Problems Problem Type Condition Code Onset Dates Condition Status Assessment Dysuria R30.0 Active Assessment Hematuria R31.9 Active Problem Pain in joint, shoulder region [...] Instructions Start Date End Date Status Dosage Baclofen [facility] [address]-77 10 MG Orally Three times a day 1 tablet with food or milk Ventolin HFA [facility] [address]-83 90 MCG/ACT Inhalation every 4 hrs 2 puffs as needed Pantoprazole Sodium [facility] [address]-99 40 MG Orally Once a day Oct 31, 2015 1 tablet Nitrofurantoin Macrocrystal [facility] [address]-35 100 mg Orally twice a day Aug 23, 2015 1 capsule Pyridium [facility] [address]-73 100 MG Orally Three times a day Apr 20, 2016 1 tablet after meals Omeprazole [facility] [address]-22 20 MG Orally 2 times a day 1 capsule Diclofenac Sodium [facility] 11808975248 75MG Orally 2 times a day PRN 1 tablet Crestor [facility] [address]-63 10 MG Orally Once a day 1 tablet Boniva [facility] [address]-37 150 MG Orally Once per month Oct 31, 2015 1 tablet Omeprazole [facility] 11574765987 20MG TAKE ONE CAPSULE BY MOUTH BEFORE MEAL(S) TWICE DAILY Cipro [facility] [address]-61 500 MG Orally Twice a day Apr 13, 2016 Apr 23, 2016 1 tablet Levothyroxine Sodium [facility] 17876440131 50MCG TAKE ONE TABLET BY MOUTH ONCE DAILY Procedures Procedure Coding System Code Date [facility] VISIT ESTABLISHED PATIENT CPT-4 G0467 Apr 20, 2016 Office Visit, Est Pt., Level 3 CPT-4 44612 Apr 20, 2016 URINALYSIS, AUTO, W/O SCOPE CPT-4 32558 Apr 20, 2016 Vital Signs Date/Time: Apr 20, 2016 Cardiac Monitoring Heart Rate 72 bpm Weight 177 lbs Height 62 in BMI 32.37 Index Blood Pressure Diastolic 74 mmHg Blood Pressure Systolic 138 mmHg Results No Known Results Summary Purpose [employer] Submission
--- OUTSIDE RECORDS SUMMARY | 2018-07-27 08:36 | XMS REPORT ---
Author Author YU WEBSTER [facility] [employer] Address Unknown Phone Unavailable Care Team Providers Care Ripshear Operator Name Role Phone YU WEBSTER CP Unavailable [...]
--- OUTSIDE RECORDS SUMMARY | 2018-07-27 08:37 | XMS REPORT ---
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 Active Problem Unspecified backache 724.5 Active Assessment Acute cystitis without hematuria N30.00 Active Problem Acute sinusitis, unspecified 461.9 Active Problem Pain in joint, shoulder region 719.41 Active Problem Anal fissure 565.0 Active Assessment Flank pain R10.9 Active Problem Memory loss 780.93 Active Assessment Dysuria R30.0 Active Problem Dysphagia, unspecified 787.20 Active Problem Pain in soft tissues of limb 729.5 Active Problem Personal history of colonic polyps V12.72 Active Medications Medication Code System Code Instructions Start Date End Date Status Dosage Flonase [facility] [address]-11 50 MCG/DOSE Nasally Once a day 1 spray in each nostril Diclofenac Sodium [facility] [address]-94 75 MG Orally Twice a day December 31, 2015 1 tab Simvastatin [facility] [address]-25 80 MG Orally Once a day 1 tablet in the evening Ventolin HFA [facility] [address]-42 90 MCG/ACT Inhalation every 4 hrs 2 puffs as needed Omeprazole [facility] [address]-83 20 MG Orally 2 times a day 1 capsule Hydrochlorothiazide [facility] [address]-65 25 MG Orally Once a day 1 tablet Levothyroxine Sodium [facility] [address]-53 50 MCG Orally Once a day 1 tablet Fosamax [facility] [address]-72 70 MG Orally Once a week 1 tablet Ceftin [facility] [address]-15 250 MG Orally Twice a day Jul 04, 2015 Jul 11, 2015 1 tablet Procedures Procedure Coding System Code Date URINALYSIS, AUTO, W/O SCOPE CPT-4 47022 Jul 04, 2015 [facility] VISIT ESTABLISHED PATIENT CPT-4 G0467 Jul 04, 2015 [facility] CPT-4 NOBLL Jul 04, 2015 VENIPUNCT, ROUTINE* CPT-4 52497 Jul 04, 2015 Office Visit, Est Pt., Level 3 CPT-4 12074 Jul 04, 2015 Vital Signs Date/Time: Jul 04, 2015 Temperature 98.5 F Weight 184.0 lbs Height 62 in BMI 33.65 Index Blood Pressure Diastolic 70 mmHg Blood Pressure Systolic 100 mmHg Cardiac Monitoring Heart Rate 96 bpm Results Name Result Date Reference Range Unit Abnormality Flag CULTURE, URINE TSH ROUTINE VENIPUNCTURE UA LONG DIP (IN HOUSE) LIPID PANEL Summary Purpose [employer] Submission
--- OUTSIDE RECORDS SUMMARY | 2018-07-27 08:37 | XMS REPORT ---
Author Author YU WEBSTER [facility] [employer] Address Unknown Phone Unavailable Care Team Providers Care Assistant Professor Of Religion Name Role Phone YU WEBSTER CP Unavailable [...] Problem Unspecified breast screening V76.10 Active Assessment Sinus congestion R09.81 Active Problem Other specified congenital anomaly of [...] Active Problem Unspecified backache 724.5 Active Assessment Reflux esophagitis K21.0 Active Problem Acute sinusitis, unspecified 461.9 Active Problem Pain in joint, shoulder region 719.41 Active Problem Anal fissure 565.0 Active Assessment Multiple joint pain M25.50 Active Problem Memory loss 780.93 Active Assessment Acquired deformities of toe, 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 Active Problem Dysphagia, unspecified 787.20 Active Problem Pain in soft tissues of limb 729.5 Active Problem Personal history of colonic polyps V12.72 Active Medications Medication Code System Code Instructions Start Date End Date Status Dosage Omeprazole [facility] [address]-19 20 MG Orally 2 times a day 1 capsule Macrobid [facility] [address]-91 100 MG Orally every 12 hrs 1 capsule with food Levothyroxine Sodium [facility] [address]-68 50 MCG Orally Once a day 1 tablet Diclofenac Sodium [facility] [address]-04 75 MG Orally Twice a day December 31, 2015 1 tab Fosamax [facility] [address]-10 70 MG Orally Once a week 1 tablet Hydrochlorothiazide [facility] [address]-48 25 MG Orally Once a day 1 tablet Crestor [facility] [address]-06 10 MG Orally Once a day Jul 15, 2015 1 tablet Ventolin HFA [facility] [address]-02 90 MCG/ACT Inhalation every 4 hrs 2 puffs as needed Fluticasone Propionate [facility] 99683721246 50MCG/AC USE TWO SPRAY(S ) IN EACH NOSTRIL ONCE DAILY Flonase [facility] [address]-52 50 MCG/DOSE Nasally Once a day 1 spray in each nostril Pseudoephedrine HCl [facility] [address]-15 120 MG Once a day Nov 01, 2014 1 Tablet by Oral route 1 time per day Procedures Procedure Coding System Code Date VENIPUNCT, ROUTINE* CPT-4 21901 Jul 29, 2015 [facility] VISIT ESTABLISHED PATIENT CPT-4 G0467 Jul 29, 2015 [facility] CPT-4 NOBLL Jul 29, 2015 Office Visit, Est Pt., Level 3 CPT-4 24241 Jul 29, 2015 Vital Signs Date/Time: Jul 29, 2015 Temperature 99.2 F Weight 187.0 lbs Height 62 in BMI 34.20 Index Blood Pressure Diastolic 68 mmHg Blood Pressure Systolic 118 mmHg Cardiac Monitoring Heart Rate 84 bpm Results Name Result Date Reference Range Unit Abnormality Flag ROUTINE VENIPUNCTURE RA (RHEUMATOID) FACTOR Summary Purpose [employer] Submission
--- OUTSIDE RECORDS SUMMARY | 2018-07-27 08:37 | XMS REPORT ---
Author Author ROOPA RAMOS Organization [employer] Address Unknown Phone Unavailable Care Team Providers Care Wet Silk Hanger Name Role Phone ROOPA RAMOS CP Unavailable Allergies No Known Allergies Problems Problem Type Condition Code Onset Dates Condition Status Problem Pain in joint, shoulder region 719.41 Active Assessment Hyperlipemia, mixed E78.2 Active Problem Pain in joint, site unspecified 719.40 Active Problem Hirsutism 704.1 Active Problem Acute maxillary sinusitis 461.0 Active Problem Esophageal reflux 530.81 Active Problem Actinic keratosis 702.0 Active Problem Dysphagia, unspecified 787.20 Active Problem Sciatica 724.3 Active Problem Degeneration of intervertebral disc, site unspecified 722.6 Active Problem Acute bronchitis 466.0 Active Problem Chronic airway obstruction, not elsewhere classified 496 Active Problem Lumbago 724.2 Active Problem Allergic rhinitis due to pollen 477.0 Active Problem Multiple joint pain M25.50 Active Problem Esophageal reflux K21.9 Active Problem Internal hemorrhoids without mention of complication 455.0 Active Problem External hemorrhoids with other complication 455.5 Active Problem Acquired hypothyroidism E03.9 Active Problem Diverticulosis of colon (without mention of hemorrhage) 562.10 Active 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 Problem Benign paroxysmal positional vertigo 386.11 Active Problem Otitis media with effusion, right H65.91 Active Problem Hyperlipemia, mixed E78.2 Active Problem Other and unspecified hyperlipidemia 272.4 Active Problem Unspecified hypothyroidism 244.9 Active Problem Abdominal pain, left lower quadrant 789.04 Active Problem Primary localized osteoarthrosis, 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
--- OUTSIDE RECORDS SUMMARY | 2018-07-27 08:37 | XMS REPORT ---
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 Active 359789673 Problem Hirsutism 704.1 Active 738374730 Problem Actinic keratosis 702.0 Active 240090916 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 749276958 Problem Other psoriasis 696.1 Active 6702920 Problem Other and unspecified hyperlipidemia 272.4 Active 62817727 Problem Lumbago 724.2 Active 629583048 Problem Unspecified hypothyroidism 244.9 Active 89472696 Problem Unspecified backache 724.5 Active 955328923 Problem Hyperlipemia, mixed E78.2 Active 769412535 Problem Essential hypertension I10 Active 99835737 Problem Esophageal reflux K21.9 Active 429628996 Problem Hypothyroidism, unspecified type E03.9 Active 26995324 Problem Neuropathy G62.9 Active 298550663 Problem Diverticulosis of colon (without mention of hemorrhage) 562.10 Active 393038226 Problem Anal fissure 565.0 Active 77595198 Problem Sciatica 724.3 Active 68414424 Problem Otitis media with effusion, right H65.91 Active 98153085 Problem Acquired hypothyroidism E03.9 Active 061487118 Problem Abnormal mammogram of left breast R92.8 Active 343418274 Problem Multiple joint pain M25.50 Active 33712211 Problem Abdominal pain, left lower quadrant 789.04 Active 672322991 Problem Acute bronchitis 466.0 Active 98027008 Problem Dysphagia, unspecified 787.20 Active 01892289 Problem Acute maxillary sinusitis 461.0 Active 01853136 Problem Esophageal reflux 530.81 Active 323923056 Problem Chronic airway obstruction, not elsewhere classified 496 Active 00857452 Problem Benign paroxysmal positional vertigo 386.11 Active 428788935 Problem Allergic rhinitis due to pollen 477.0 Active 68825021 Problem External hemorrhoids with other complication 455.5 Active 53517871 Problem Internal hemorrhoids without mention of complication 455.0 Active 88428570 ALLERGIES No Information SOCIAL HISTORY Never Assessed PLAN OF CARE VITAL SIGNS MEDICATIONS Unknown [...] L4-S1 03/06/2016 Surgical History Hemmroidectomy-Dr. YANG in [place] 2013 Hospitalization History surgeries Hospitalization History [facility] for abdominal/chest pain 07/2015 Hospitalization History Inpt for lumbar surgery x's 10 days 02/2015 Hospitalization History Pt was in [facility] for rehab from surgery, Dx with UTI
--- OUTSIDE RECORDS SUMMARY | 2018-07-27 08:38 | XMS REPORT ---
Author Author YU WEBSTER [facility] eClinicalWorks Address Unknown Phone Unavailable Care Team Providers Care Robotics Systems Engineer Name Role Phone YU WEBSTER CP Unavailable [...] Active Problem Unspecified backache 724.5 Active Assessment Urinary tract infection N39.0 Active Problem Acute sinusitis, unspecified 461.9 Active Problem Pain in joint, shoulder region 719.41 Active Problem Anal fissure 565.0 Active Problem Memory loss 780.93 Active Problem Dysphagia, unspecified 787.20 Active Problem Pain in soft tissues of limb 729.5 Active Problem Personal history of colonic polyps V12.72 Active Medications Medication Code System Code Instructions Start Date End Date Status Dosage Macrobid [facility] [address]-35 100 MG Orally every 12 hrs Jun 27, 2015Jun 1 capsule with food Procedures Procedure Coding System Code Date URINALYSIS, AUTO, W/O SCOPE CPT-4 15447 Jun 27, 2015 [facility] NO[facility] Jun 27, 2015 Results Name Result Date Reference Range Unit Abnormality Flag UA LONG DIP (IN HOUSE) Summary Purpose eClinicalWorks Submission
--- OUTSIDE RECORDS SUMMARY | 2018-07-27 08:38 | XMS REPORT ---
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.14 Active 441222174 Problem Hirsutism 704.1 Active 676088214 Problem Actinic keratosis 702.0 Active 498005 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 943083008 Problem Other psoriasis 696.1 Active 7450607 Problem Other and unspecified hyperlipidemia 272.4 Active 59484517 Problem Lumbago 724.2 Active 798331709 Problem Unspecified hypothyroidism 244.9 Active 96794704 Problem Unspecified backache 724.5 Active 203341827 Problem Hyperlipemia, mixed E78.2 Active 573901859 Problem Essential hypertension I10 Active 88804728 Problem Esophageal reflux K21.9 Active 879765783 Problem Hypothyroidism, unspecified type E03.9 Active 62244392 Problem Neuropathy G62.9 Active 934004495 Problem Diverticulosis of colon (without mention of hemorrhage) 562.10 Active 916495959 Problem Anal fissure 565.0 Active 26426511 Problem Sciatica 724.3 Active 41450169 Problem Otitis media with effusion, right H65.91 Active 61998076 Problem Acquired hypothyroidism E03.9 Active 500815785 Problem Abnormal mammogram of left breast R92.8 Active 539043431 Problem Multiple joint pain M25.50 Active 46846959 Problem Abdominal pain, left lower quadrant 789.04 Active 694537171 Problem Acute bronchitis 466.0 Active 24197212 Problem Dysphagia, unspecified 787.20 Active 29447972 Problem Acute maxillary sinusitis 461.0 Active 29692317 Problem Esophageal reflux 530.81 Active 463384337 Problem Chronic airway obstruction, not elsewhere classified 496 Active 95999851 Problem Benign paroxysmal positional vertigo 386.11 Active 687442905 Problem Allergic rhinitis due to pollen 477.0 Active 13238307 Problem External hemorrhoids with other complication 455.5 Active 42507298 Problem Internal hemorrhoids without mention of complication 455.0 Active 69599922 ALLERGIES No Information SOCIAL HISTORY Never Assessed PLAN OF CARE VITAL SIGNS MEDICATIONS Unknown Medications RESULTS Name Result Date Reference Range TSH 2016-11-11 TSH 0.568 0.450-4.500 PROCEDURES Procedure Date Ordered Result Body Site [facility] November 11, 2016 VENIPUNCT, ROUTINE* November 11, 2016 IMMUNIZATIONS No Known Immunizations MEDICAL (GENERAL) [...] L4-S1 03/06/2016 Surgical History Hemmroidectomy-Dr. YANG in [place] 2013 Hospitalization History surgeries Hospitalization History [facility] for abdominal/chest pain 07/2015 Hospitalization History Inpt for lumbar surgery x's 10 days 02/2015 Hospitalization History Pt was in [facility] for rehab from surgery, Dx with UTI
--- OUTSIDE RECORDS SUMMARY | 2018-07-27 08:38 | XMS REPORT ---
Author Author YU WEBSTER Organization [employer] Address Unknown Phone Unavailable Care Team Providers Care Fisheries Inspector Name Role Phone YU WEBSTER CP Unavailable [...] Start Date End Date Status Dosage Omeprazole [facility] [address]-29 20 mg Orally 2 times a day 1 capsule Results No Known Results Summary Purpose eClinicalWorks Submission
--- OUTSIDE RECORDS SUMMARY | 2018-07-27 08:38 | XMS REPORT ---
Author Author YU WEBSTER [facility] eClinicalWorks Address Unknown Phone Unavailable Care Team Providers Care Engineering Coordinator Name Role Phone UY WEBSTER CP Unavailable Allergies, Adverse Reactions, Alerts [...] Unspecified backache 724.5 Active Assessment Acute cystitis with hematuria N30.01 Active Problem Acute sinusitis, unspecified 461.9 Active Problem Pain in joint, shoulder region 719.41 Active Problem Anal fissure 565.0 Active Problem Memory loss 780.93 Active Problem Dysphagia, unspecified 787.20 Active Problem Pain in soft tissues of limb 729.5 Active Problem Personal history of colonic polyps V12.72 Active Medications Medication Code System Code Instructions Start Date End Date Status Dosage Ventolin HFA [facility] [address]-72 90 MCG/ACT Inhalation every 4 hrs 2 puffs as needed VESIcare [facility] [address]-50 5 MG Orally Once a day 1 tablet Macrobid [facility] [address]-05 100 MG Orally every 12 hrs Aug 19, 2015Aug 1 capsule with food Fosamax [facility] 99713232398 70MG Orally one time/week 1 tablet Fluticasone Propionate [facility] 52696122898 50MCG/AC USE TWO SPRAY(S ) IN EACH NOSTRIL ONCE DAILY Crestor [facility] [address]-54 10 MG Orally Once a day Jul 15, 2015 1 tablet Bactrim [facility] [address]-35 400-80 MG Orally Once a day 2 tablets Omeprazole [facility] [address]-31 20 MG Orally 2 times a day 1 capsule Levothyroxine Sodium [facility] 44374028056 50MCG TAKE ONE TABLET BY MOUTH ONCE DAILY Hydrochlorothiazide [facility] [address]-77 25 MG Orally Once a day 1 tablet Diclofenac Sodium [facility] [address]-64 75 MG Orally Twice a day December 31, 2015 1 tab Procedures Procedure Coding System Code Date URINE-NO MICRO CPT-4 80045 Aug 19, 2015 URINALYSIS, AUTO W/SCOPE CPT-4 12573 Aug 19, 2015 Office Visit, Est Pt., Level 3 CPT-4 50222 Aug 19, 2015 URINALYSIS, AUTO, W/O SCOPE CPT-4 96524 Aug 19, 2015 CULTURE OF SPECIMEN BY KIT CPT-4 01516 Aug 19, 2015 [facility] NOBLL Aug 19, 2015 Vital Signs Date/Time: Aug 19, 2015 Temperature 98 F Weight 186 lbs Height 62 in BMI 34.02 Index Blood Pressure Diastolic 70 mmHg Blood Pressure Systolic 126 mmHg Cardiac Monitoring Heart Rate 78 bpm Results Name Result Date Reference Range Unit Abnormality Flag UA LONG DIP (IN HOUSE) ----pH 5.5 20150819 ----BLO 2+ 20150819 ----SG 1.025 20150819 ----KET trace 20150819 ----CEE neg [id number] ----URO 0.2 20150819 ----Protein 2+ 20150819 ----ISA trace 20150819 ----NIT positive 20150819 ----Clarity cloudy 20150819 ----Color yellow 20150819 ----Odor no 20150819 ----GLU neg [id number] Summary Purpose eClinicalWorks Submission
--- OUTSIDE RECORDS SUMMARY | 2018-07-27 08:38 | XMS REPORT ---
Author Author ESTHER MOORE [facility] eClinicalWorks Address Unknown Phone Unavailable Care Team Providers Care Power Brake Operator Name Role Phone ESTHER MOORE CP Unavailable Allergies, Adverse Reactions, Alerts Substance Reaction Event Type Penicillin V Potassium hives Drug Allergy Biaxin Info Not Available Drug Allergy Amoxicillin hives Drug Allergy Problems Problem Type Condition Code Onset Dates Condition Status Assessment Well woman exam Z01.419 Active Assessment Cystitis N30.90 Active Problem Pain in joint, shoulder region [...] Start Date End Date Status Dosage Boniva [facility] [address]-90 150 MG Orally Once per month Oct 31, 2015 1 tablet Nitrofurantoin Macrocrystal [facility] [address]-38 100 mg Orally twice a day Aug 23, 2015 1 capsule Levothyroxine Sodium [facility] 12358124338 50MCG TAKE ONE TABLET BY MOUTH ONCE DAILY Baclofen [facility] [address]-80 10 MG Orally Three times a day 1 tablet with food or milk Pantoprazole Sodium [facility] [address]-35 40 MG Orally Once a day Oct 31, 2015 1 tablet Diclofenac Sodium [facility] 22106859409 75MG Orally 2 times a day PRN 1 tablet Pyridium [facility] [address]-61 100 MG Orally Three times a day Apr 20, 2016 1 tablet after meals Prelief [facility] [address]645 340 (65-50) MG (CA-P) Orally 4 times a day Apr 24, 2016 Jun 23, 2016 2 tablets Crestor [facility] [address]-19 10 MG Orally Once a day 1 tablet Ventolin HFA [facility] [address]-94 90 MCG/ACT Inhalation every 4 hrs 2 puffs as needed Omeprazole [facility] [address]-30 20 MG Orally 2 times a day 1 capsule Omeprazole [facility] 52242901584 20MG TAKE ONE CAPSULE BY MOUTH BEFORE MEAL(S) TWICE DAILY Procedures Procedure Coding System Code Date URINALYSIS, AUTO, W/O SCOPE CPT-4 70978 Apr 24, 2016 SPECIMEN HANDLING CPT-4 11783 Apr 24, 2016 [facility] NOB[facility] Apr 24, 2016 Preventive Care Est Pt. Age 40-64 CPT-4 46640 Apr 24, 2016 Vital Signs Date/Time: Apr 24, 2016 Cardiac Monitoring Heart Rate 76 bpm Weight 176.4 lbs Height 62 in BMI 32.26 Index Blood Pressure Diastolic 70 mmHg Blood Pressure Systolic 138 mmHg Results No Known Results Summary Purpose eClinicalWorks Submission
--- OUTSIDE RECORDS SUMMARY | 2018-07-27 08:39 | XMS REPORT ---
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 Active 708851539 Problem Hirsutism 704.1 Active 069077266 Problem Actinic keratosis 702.0 Active 025030 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 196724609 Problem Other psoriasis 696.1 Active 6489583 Problem Other and unspecified hyperlipidemia 272.4 Active 95239046 Problem Lumbago 724.2 Active 236303360 Problem Unspecified hypothyroidism 244.9 Active 61969378 Problem Unspecified backache 724.5 Active 892680930 Problem Hyperlipemia, mixed E78.2 Active 785123807 Problem Essential hypertension I10 Active 81169711 Problem Esophageal reflux K21.9 Active 713984671 Problem Hypothyroidism, unspecified type E03.9 Active 81478163 Problem Neuropathy G62.9 Active 222333242 Problem Diverticulosis of colon (without mention of hemorrhage) 562.10 Active 714420702 Problem Anal fissure 565.0 Active 12525964 Problem Sciatica 724.3 Active 13774068 Problem Otitis media with effusion, right H65.91 Active 83760702 Problem Acquired hypothyroidism E03.9 Active 952196577 Problem Abnormal mammogram of left breast R92.8 Active 887972783 Problem Multiple joint pain M25.50 Active 42435409 Problem Abdominal pain, left lower quadrant 789.04 Active 128228395 Problem Acute bronchitis 466.0 Active 45578837 Problem Dysphagia, unspecified 787.20 Active 83132807 Problem Acute maxillary sinusitis 461.0 Active 63718017 Problem Esophageal reflux 530.81 Active 639802277 Problem Chronic airway obstruction, not elsewhere classified 496 Active 55430771 Problem Benign paroxysmal positional vertigo 386.11 Active 626108787 Problem Allergic rhinitis due to pollen 477.0 Active 01986918 Problem External hemorrhoids with other complication 455.5 Active 78275004 Problem Internal hemorrhoids without mention of complication 455.0 Active 49913721 ALLERGIES No Information SOCIAL HISTORY Never Assessed [...] L4-S1 03/06/2016 Surgical History Hemmroidectomy-Dr. YANG in [place] 2013 Hospitalization History surgeries Hospitalization History [facility] for abdominal/chest pain 07/2015 Hospitalization History Inpt for lumbar surgery x's 10 days 02/2015 Hospitalization History Pt was in [facility] for rehab from surgery, Dx with UTI
--- OUTSIDE RECORDS SUMMARY | 2018-07-27 08:40 | XMS REPORT ---
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 033353010 Problem Other psoriasis 696.1 Active 7822628 Problem Lumbago 724.2 Active 962166040 Problem Unspecified backache 724.5 Active 452510332 Problem Hyperlipemia, mixed E78.2 Active 458503613 Problem Sciatica 724.3 Active 21261248 Problem Otitis media with effusion, right H65.91 Active 53985353 Problem Anal fissure 565.0 Active 51074880 Problem Esophageal reflux K21.9 Active 924317315 Problem Acquired hypothyroidism E03.9 Active 853004952 Problem Essential hypertension I10 Active 86449320 Problem Obesity (BMI 30.0-34.9) E66.9 Active [id number] Problem Chronic fatigue R53.82 Active 10521611 Problem Chronic airway obstruction, not elsewhere classified 496 Active 27187249 Problem Esophageal reflux 530.81 Active 979127488 Problem Diverticulosis of colon (without mention of hemorrhage) 562.10 Active 169609077 Problem Abnormal mammogram of left breast R92.8 Active 289259003 Problem Multiple joint pain M25.50 Active 05610675 Problem Hypothyroidism, unspecified type E03.9 Active 55029497 Problem Neuropathy G62.9 Active 013766356 Problem Memory loss 780.93 Active 89454808 Problem External hemorrhoids with other complication 455.5 Active 33602933 Problem Degeneration of intervertebral disc, site unspecified 722.6 Active 75055188 Problem Internal hemorrhoids without mention of complication 455.0 Active 30439626 Problem Abdominal pain, left lower quadrant 789.04 Active 310519667 Problem Acute bronchitis 466.0 Active 71539067 Problem Dysphagia, unspecified 787.20 Active 54170283 Problem Acute maxillary sinusitis 461.0 Active 95413373 Problem Other and unspecified hyperlipidemia 272.4 Active 86524146 Problem Unspecified hypothyroidism 244.9 Active 58707039 Problem Benign paroxysmal positional vertigo 386.11 Active 915700665 Problem Allergic rhinitis due to pollen 477.0 Active 03777853 ALLERGIES No Information ENCOUNTERS Encounter Location Date Diagnosis [address] [id number] Dec, [place] [id number] [place] [id number] Oct, [address] [id number] Oct, Screening breast examination Z12.31 and History of abnormal mammogram Z87.[address] [id number] Sep, [address] [id number] Sep, [place] [id number] [place] [address] [id number] Sep, [address] [id number] Jun, Obesity (BMI 30.0-34.9) E66.9 ; Chronic fatigue R53.82 ; Neuropathy G62.9 ; Essential hypertension I10 and Encounter for immunization Z23 [address] [id number] Jun, Neuropathy G62.9 and Essential hypertension I10 [address] [id number] Apr, [address] [id number] Mar, Neuropathy G62.9 ; Hypothyroidism, unspecified type E03.9 ; Essential hypertension I10 ; Muscle spasm M62.838 and Hyperlipemia, mixed E78.2 [facility] [address] [place] [address] [id number] Feb, [facility] [place] [id number] [place] [address] [id number] January, [facility] [place] [id number] [place] [address] [id number] Dec, [facility] [place] [id number] [place] [address] [id number] Dec, Hypothyroidism, unspecified type E03.9 [facility] [place] [id number] [place] [address] [id number] Nov, [facility] [place] [id number] [place] [address] [id number] Nov, Neuropathy G62.9 ; Sinus congestion R09.81 ; Hyperlipemia, mixed E78.2 and Hypothyroidism, unspecified type E03.9 [facility] [address] [place] [address] [id number] Nov, Neuropathy G62.9 [facility] [place] [id number] [place] [address] [id number] Nov, Sinus congestion R09.81 and Acquired hypothyroidism E03.9 [place] [id number] [place] [address] [id number] Nov, Acquired hypothyroidism E03.9 [address] [place] [address] [id number] Oct, [facility] [address] [place] [address] [id number] Oct, Sinus congestion R09.81 and Neuropathy G62.9 [facility] [place] [id number] [place] [address] [id number] Oct, Fever, unspecified R50.9 ; Sinus congestion R09.81 and Neuropathy G62.9 [facility] [place] [address] [place] [id number] [place] [address] Oct [address] [place] [address] [id number] Oct, Abnormal mammogram of left breast R92.[address] [id number] Sep, Abnormal mammogram R92.[address] [id number] Sep, Acquired hypothyroidism E03.9 [place] [id number] [place] [address] [id number] Sep, Hyperlipemia, mixed E78.2 ; Hypothyroidism, unspecified type E03.9 and Essential hypertension I10 [address] [id number] Sep, Hypothyroidism, unspecified type E03.9 and Hyperlipemia, mixed E78.[address] [id number] Aug, Acute maxillary sinusitis, recurrence not specified J01.00 [place] [id number] [place] [address] [id number] Jul, Hyperlipemia, mixed E78.[address] [id number] Jul, Acquired hypothyroidism E03.9 ; Hyperlipemia, mixed E78.2 ; Multiple joint pain M25.50 ; Esophageal reflux K21.9 ; Otitis media with effusion, right H65.91 and Essential hypertension I10 [place] [id number] [place] [address] [id number] Jul, Gastroesophageal reflux disease, esophagitis presence not specified K21.9 [place] [id number] [place] [id number] May, [address] [id number] Apr, Cystitis N30.90 and Well woman exam Z01.419 [place] [id number] [place] [address] [id number] Apr, Hematuria R31.9 and Dysuria R30.0 [place] [id number] [place] [address] [id number] Apr, [place] [id number] [place] [address] [id number] Apr, Urinary tract infection, site not specified N39.0 and Hematuria, unspecified R31.9 [place] [id number] [place] [address] [id number] Dec, [address] [id number] Nov, [place] [id number] [place] [address] [id number] Oct, Hyperlipemia, mixed E78.2 [place] [id number] [place] [address] [id number] Oct, Gastroesophageal reflux disease, esophagitis presence not specified K21.9 ; Acute serous otitis media of left ear, recurrence not specified H65.02 ; Hypothyroidism, unspecified type E03.9 and Hyperlipemia, mixed E78.2 [place] [id number] [place] [address] [id number] Sep, [place] [id number] [place] [address] [id number] Sep, Actinic keratoses L57.0 and Stuffy and runny nose J34.89 [place] [address] [place] [address] [id number] Aug, [place] [address] [place] [address] [id number] Aug, Acute cystitis with hematuria N30.[address] [place] [address] [id number] 16 Jul, 2015 Reflux esophagitis K21.0 ; Acquired deformities of toe, 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 ; Multiple joint pain M25.50 and Sinus congestion R09.81 [place] [id number] [place] [address] [id number] Jul, [place] [address] [place] [address] [id number] Jun, Acute cystitis without hematuria N30.00 ; Dysuria R30.0 ; Flank pain R10.9 and High risk medication use Z79.899 [facility] [place] [address] [id number] [id number] Jun, Urinary tract infection N39.[address] [facility] [address] [id number] [id number] Jun, [facility] [place] [id number] [id number] Jun, Urinary tract infection, site not specified 599.0 and [facility] [place] [address] [id number] [id number] Jun, [facility] [place] [address] [address] [id number][place] [id number] May, [facility] [place] [id number], [place] [id number] Dec, [facility] [address] [place] [address]- [address] Dec, [facility] [address] [place] [address]- 36[address] Dec, [facility] [place] [id number] [place] [address] [id number] Oct, [facility] [address] [place] [address] 15463- 5427 Oct, [facility] [place] [id number], [place] [id number] Sep, [facility] [address]005[address], [place] [address] Sep, [facility] [place] [id number] [place] [address] [id number] Sep, [facility] [address]00565100[place], [place] [address] Sep, [facility] [address] [id number][place] [id number] Aug, [facility] [place] [address] [id number] [place] [id number] Aug, [facility] [place] [facility] [address] [facility] [id number] [place] [address]- 9[address] Aug, [facility] [place] [facility] [address] [facility] [id number] [place] [address]- 54[address] Aug, [facility] [place] [address] [facility] [id number] [place] [id number] Aug, [facility] [place] [facility] [address] [facility] [id number] [place] [address]- 7[address] Aug, [facility] [place] [address] [id number] [place] [id number] Jul, [facility] [place] [facility] [address] [facility] [id number] [place] [address]- 4490 Jul, [facility] [address] [facility] [place] [id number][place] [id number] Jul, [facility] [place] [facility] [address] [facility] [id number], [place] [address]- 8499 Jul, [facility] [address] [facility] [id number], [place] 437584762 Jul, [facility] [place] [facility] [address] [facility] [id number], [place] [address]- 5584 Jul, [facility] [address] [facility] [place] [id number], [place] [id number] Jul, [facility] [place] [facility] [address] [facility] [id number], [place] [address]- 9269 Jul, [facility] [place] [facility] [address] [facility] [id number], [place] [address]- 2073 Jun, [facility] [place] [facility] [address] [facility] [id number], [place] [address]- 1794 Jun, [facility] [address] [facility] [id number], [place] 789660351 Jun, [facility] [place] [facility] [address] [facility] [id number], [place] [address]- 6[address] Jun, [facility] [place] [facility] [address] [id number] [place] [address]- 5322 Jun, [facility] [address] [id number] [place] [id number] Jun, [facility] [address] [id number] [place] 453004377 Jun, [facility] [place] [facility] [address] [facility] [id number] [place] [address]- 0647 Jun, [facility] [address] [id number] [place] [id number] Jun, [facility] [place] [facility] [address] [facility] [id number] [place] [address]- 2912 Jun, [facility] [address] [facility] [id number] [place] [id number] May, [facility] [place] [facility] [address] [facility] [id number], [place] [address]- 5984 May, [facility] [address] [facility] [id number] [place] [id number] May, [facility] [place] [facility] [address] [facility] [id number], [place] [address]- 4916 May, [facility] [place] [facility] [address] [facility] [id number], [place] [address]- 3[address] Apr, [facility] [place] [facility] [address] [facility] [id number], [place] [address]- 1535 Apr, [facility] [address] [facility] [place] [id number], [place] [id number] Apr, [facility] [place] [facility] [address] [facility] [id number] [place] [address]- 8720 Apr, [facility] [address] [facility] [place] [id number], [place] [id number] Mar, [facility] [place] [facility] [address] [facility] [id number], [place] [address]- 9411 Mar, [facility] [address] [id number], [place] [id number] Feb, [facility] [place] [facility] [address] [facility] [id number], [place] [address]- 6746 Feb, [facility] [address] [facility] [place] [id number] [place] [id number] January, [facility] [place] [facility] [address] [facility] [id number], [place] [address]- 5016 January, [facility] [address] [facility] [id number] [place] [id number] January, [facility] [place] [facility] [address] [id number] [place] [address]- 1328 January, [facility] [address] [facility] [id number] [place] 584618129 Dec, [facility] [place] [facility] [address] [facility] [id number], [place] [address]- 9574 Dec, [facility] [address] [id number] [place] [id number] Dec, [facility] [place] [facility] [address] [facility] [id number], [place] [address]- 9567 Dec, [facility] [address] [place] [id number], [place] [id number] Nov, [facility] [place] [facility] [address] [facility] [id number], [place] [address]- 9444 Nov, [facility] [place] [facility] [address] [facility] [id number], [place] [address]- 4661 Oct, [facility] [place] [facility] [address] [facility] [id number], [place] [address]- 6373 Oct, [facility] [place] [facility] [address] [facility] [id number], [place] [address]- 6936 Sep, [facility] [address] [id number] [place] 391377209 Sep, [facility] [address] [facility] [id number] [place] [id number] Sep, [facility] [place] [facility] [address] [facility] [id number], [place] [address]- 9276 Sep, [facility] [address] [id number] [place] [id number] Aug, [facility] [place] [facility] [address] [facility] [id number], [place] [address]- [address] Aug, [facility] [address] [facility] [id number] [place] 750638081 Jul, [facility] [place] [facility] [address] [facility] [id number], [place] [address]- 9003 Jul, [facility] [address] [facility] [id number] [place] 213153570 Jul, [facility] [place] [facility] [address] [facility] [id number], [place] [address]- 7614 Jul, [facility] [address] [id number], [place] 090303692 Jul, [facility] [place] [facility] [address]00565[address], [place] [address]- 2077 Jul, [facility] [address] [facility] [id number], [place] 344032967 Jul, [facility] [place] [facility] [address]00565[address], [place] [address]- 2475 Jul, [facility] [place] [facility] [address]65[address], [place] [address]- 6824 Jul, [facility] [address] [facility] [id number], [place] 788188502 Jun, [facility] [place] [facility] [address] [facility] [id number], [place] [address]- 6201 Jun, [facility] [address] [facility] [id number], [place] 633378320 Jun, [facility] [address] [facility] [id number], [place] 483912585 Jun, [facility] [place] [facility] [address] [facility] [id number], [place] 97513289- 7085 Jun, [facility] [place] [facility] [address] [address] [id number], [place] [address]- 2545 Jun, [facility] [address] [id number] [place] 487856892 Jun, [facility] [address] [facility] [id number], [place] [address] 2546 Jun, [facility] [address] [facility] [id number], [place] [address]- 5136 Jun, [facility] [address] [id number] [place] 749352847 May, [facility] [address] [id number] [place] 446886582 May, [facility] [address] [id number] [place] 362466561 May, [facility] [address] [id number] [place] 282069195 May, [facility] [address] [id number] [place] 028130925 Apr, [facility] [address] [id number] [place] 482984761 Feb, [facility] [address] [id number] [place] 443218207 Feb, [facility] [address]00565[address], [place] [address]- 2546 Feb, [facility] [address] [id number], [place] 798852758 January, [facility] [address] [facility] [id number], [place] [address]- 8146 January, [facility] [address] [id number] [place] 970791011 January, [facility] [address] [id number], [place] 917742211 January, [facility] [address] [id number], [place] 518411553 January, [facility] [address], [place] [address]- 1314 Nov, [facility] [address] [facility] [id number], [place] [address]- 2546 Nov, [facility] [address] [id number] [place] 404948591 Oct, [facility] [address] [id number] [place] 395614203 Oct, [facility] [address] [id number] [place] 374722337 Oct, [facility] [address] [id number] [place] 493169198 Oct, [facility] [address] [facility] [id number], [place] [address]- 2546 Oct, [facility] [address] [facility] [id number], [place] [address]- 2546 Oct, [facility] [address] [id number], [place] 861658443 Sep, [facility] [address] [facility] [id number], [place] [address]- 2546 Sep, [facility] [address] [id number], [place] 587152749 Sep, [facility] [address] [id number], [place] 837980029 Sep, [facility] [address] [id number], [place] 963681970 Jun, [facility] [address] [facility] [id number], [place] [address]- 2546 Jun, [facility] [address] [id number] [place] 743443266 May, [facility] [address] [id number] [place] 448727799 May, [facility] [address] [id number] [place] 393808196 Apr, [facility] [address] [id number] [place] 892151416 Apr, [facility] [address] [id number], [place] 605532303 Apr, [facility] [address] [id number], [place] 109275474 Mar, [facility] [address]00565100[place], [place] [address]- 2546 Feb, [facility] [address] [id number], [place] 421650455 Nov, [facility] [address]005[address], [place] [address] Nov, [facility] [address]00565100[place], [place] [address]- 2546 Nov, [facility] [address]65[address], [place] [address]- 2546 Nov, [facility] [address]00565100[place], [place] [address]- 2546 Nov, [address]00565100[place], [place] 005851961 Nov, [address]00565100[place], [place] 808658694 Sep, [address]00565100[place], [place] 623751638 Sep, IMMUNIZATIONS No Known Immunizations SOCIAL HISTORY Never Assessed REASON FOR VISIT med refills PLAN OF CARE VITAL SIGNS MEDICATIONS Medication Instructions Dosage Frequency Start Date End Date Duration Status Diclofenac Sodium 75 mg Orally twice a day as needed 1 tablet 1 Apr, 2017 0 days Active Omeprazole 20 mg Orally Once a day 1 capsule 24h Active RESULTS No Results PROCEDURES No Known [...] L4-S1 03/06/2016 Surgical History Hemmroidectomy-Dr. YANG in [place] 2013 Hospitalization History surgeries Hospitalization History [facility] for abdominal/chest pain 07/2015 Hospitalization History Inpt for lumbar surgery x's 10 days 02/2015 Hospitalization History Pt was in [facility] for rehab from surgery, Dx with UTI
--- OUTSIDE RECORDS SUMMARY | 2018-07-27 08:41 | XMS REPORT ---
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 331667547 Problem Other psoriasis 696.1 Active 5014565 Problem Lumbago 724.2 Active 450192045 Problem Unspecified backache 724.5 Active 629424975 Problem Hyperlipemia, mixed E78.2 Active 315496424 Problem Sciatica 724.3 Active 44550513 Problem Otitis media with effusion, right H65.91 Active 51871954 Problem Anal fissure 565.0 Active 38449110 Problem Esophageal reflux K21.9 Active 875575324 Problem Acquired hypothyroidism E03.9 Active 767836019 Problem Essential hypertension I10 Active 83902664 Problem Obesity (BMI 30.0-34.9) E66.9 Active 995738809929934 Problem Chronic fatigue R53.82 Active 23152994 Problem Chronic airway obstruction, not elsewhere classified 496 Active 15464556 Problem Esophageal reflux 530.81 Active 094272622 Problem Diverticulosis of colon (without mention of hemorrhage) 562.10 Active 365580280 Problem Abnormal mammogram of left breast R92.8 Active 643311121 Problem Multiple joint pain M25.50 Active 58635804 Problem Hypothyroidism, unspecified type E03.9 Active 01499674 Problem Neuropathy G62.9 Active 992171988 Problem Memory loss 780.93 Active 53911914 Problem External hemorrhoids with other complication 455.5 Active 76983557 Problem Degeneration of intervertebral disc, site unspecified 722.6 Active 58112811 Problem Internal hemorrhoids without mention of complication 455.0 Active 06488365 Problem Abdominal pain, left lower quadrant 789.04 Active 411923993 Problem Acute bronchitis 466.0 Active 53319280 Problem Dysphagia, unspecified 787.20 Active 45409900 Problem Acute maxillary sinusitis 461.0 Active 19838673 Problem Other and unspecified hyperlipidemia 272.4 Active 53705870 Problem Unspecified hypothyroidism 244.9 Active 43768812 Problem Benign paroxysmal positional vertigo 386.11 Active 987825932 Problem Allergic rhinitis due to pollen 477.0 Active 62389502 ALLERGIES No Information ENCOUNTERS Encounter Location Date Diagnosis [address] [id number] [id number] Oct, [place] [id number] [place] [address] [id number] Oct, Screening breast examination Z12.31 and History of abnormal mammogram Z87.898 [place] [id number] [place] [address] [id number] Sep, [place] [id number] [place] [address] [id number] Sep, [place] [id number] [place] [address] [id number] Sep, [place] [id number] [place] [address] [id number] Jun, Obesity (BMI 30.0-34.9) E66.9 ; Chronic fatigue R53.82 ; Neuropathy G62.9 ; Essential hypertension I10 and Encounter for immunization Z23 [place] [id number] [place] [address] [id number] Jun, Neuropathy G62.9 and Essential hypertension I10 [place] [id number] [place] [address] [id number] Apr, [place] [id number] [place] [address] [id number] Mar, Neuropathy G62.9 ; Hypothyroidism, unspecified type E03.9 ; Essential hypertension I10 ; Muscle spasm M62.838 and Hyperlipemia, mixed E78.2 [facility] [place] [id number] [place] [address] [id number] Feb, [facility] [address] [id number] January, [facility] [place] [id number] [place] [address] [id number] Dec, [facility] [address] [id number] Dec, Hypothyroidism, unspecified type E03.9 [facility] [place] [id number] [place] [address] [id number] Nov, [facility] [address] [id number] Nov, Neuropathy G62.9 ; Sinus congestion R09.81 ; Hyperlipemia, mixed E78.2 and Hypothyroidism, unspecified type E03.9 [facility] [place] [id number] [place] [address] [id number] Nov, Neuropathy G62.9 [facility] [place] [id number] [place] [address] [id number] Nov, Sinus congestion R09.81 and Acquired hypothyroidism E03.9 [facility] [place] [id number] [place] [address] [id number] Nov, Acquired hypothyroidism E03.9 [facility] [address] [place] [address] [id number] Oct, [facility] [place] [id number] [place] [address] [id number] Oct, Sinus congestion R09.81 and Neuropathy G62.9 [facility] [address] [place] [address] [id number] Oct, Fever, unspecified R50.9 ; Sinus congestion R09.81 and Neuropathy G62.9 [facility] [place] [address] [id number] [place] [address] Oct [facility] [place] [id number] [place] [address] [id number] Oct, Abnormal mammogram of left breast R92.8 [place] [id number] [place] [address] [id number] Sep, Abnormal mammogram R92.8 [place] [address] [place] [id number] [place] [address] [id number] Sep, Acquired hypothyroidism E03.9 [place] [id number] [place] [address] [id number] Sep, Hypothyroidism, unspecified type E03.9 ; Hyperlipemia, mixed E78.2 and Essential hypertension I10 [place] [id number] [place] [address] [id number] Sep, Hypothyroidism, unspecified type E03.9 and Hyperlipemia, mixed E78.2 [place] [id number] [place] [address] [id number] Aug, Acute maxillary sinusitis, recurrence not specified J01.[address] [id number] Jul, Hyperlipemia, mixed E78.2 [place] [id number] [place] [address] [id number] Jul, Acquired hypothyroidism E03.9 ; Hyperlipemia, mixed E78.2 ; Multiple joint pain M25.50 ; Esophageal reflux K21.9 ; Otitis media with effusion, right H65.91 and Essential hypertension I10 [place] [id number] [place] [address] [id number] Jul, Gastroesophageal reflux disease, esophagitis presence not specified K21.9 [place] [id number] [place] [address] [id number] May, [place] [id number] [place] [address] [id number] Apr, Cystitis N30.90 and Well woman exam Z01.[address] [id number] Apr, Hematuria R31.9 and Dysuria R30.[address] [id number] Apr, [address] [place] [address] [id number] Apr, Urinary tract infection, site not specified N39.0 and Hematuria, unspecified R31.9 [place] [id number] [place] [address] [id number] Dec, [address] [id number] Nov, [address] [id number] Oct, Hyperlipemia, mixed E78.2 [place] [id number] [place] [address] [id number] Oct, Gastroesophageal reflux disease, esophagitis presence not specified K21.9 ; Acute serous otitis media of left ear, recurrence not specified H65.02 ; Hyperlipemia, mixed E78.2 and Hypothyroidism, unspecified type E03.9 [place] [id number] [place] [address] [id number] Sep, [place] [id number] [place] [address] [id number] Sep, Actinic keratoses L57.0 and Stuffy and runny nose J34.89 [place] [id number] [place] [address] [id number] Aug, [place] [id number] [place] [address] [id number] Aug, Acute cystitis with hematuria N30.01 [place] [id number] [place] [address] [id number] Jul, Reflux esophagitis K21.0 ; Acquired deformities of toe, 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 ; Multiple joint pain M25.50 and Sinus congestion R09.81 [place] [id number] [place] [address] [id number] Jul, [address] [id number] Jun, Acute cystitis without hematuria N30.00 ; Dysuria R30.0 ; Flank pain R10.9 and High risk medication use Z79.899 [facility] [address] [facility] [id number] [id number] Jun, Urinary tract infection N39.0 [facility] [address] [facility] [id number][place] [id number] Jun, [facility] [address] [facility] [id number], [place] [id number] Jun, Urinary tract infection, site not specified 599.0 and Encounter for immunization Z23 [facility] [place] [address] [id number] [id number] Jun, [facility] [address] [facility] [id number], [place] [id number] May, [facility] [address] [place] [id number][place] [id number] Dec, [facility] [address] [address] Dec, [facility] [address]00565[address], [place] [address] Dec, [facility] [address] [facility] [id number], [place] [id number] Oct, [facility] [address]65[address], [place] [address] Oct, [facility] [place] [address] [place] [id number][place] [id number] Sep, [facility] [address]65[address], [place] [address] Sep, [facility] [address] [facility] [id number], [place] [id number] Sep, [facility] [address]00565[address], [place] [address] 2546 Sep, [facility] [address] [facility] [id number][place] 701018077 Aug, [facility] [address] [facility] [id number][place] [id number] Aug, [facility] [place] [facility] [address] [id number], [place] [address] Aug, [facility] [place] [facility] [address] [id number] [place] [address] Aug, [facility] [address] [id number] [place] [id number] Aug, [facility] [place] [facility] [address] [id number], [place] [address] 9[address] Aug, [facility] [address] [id number], [place] [id number] Jul, [facility] [place] [facility] [address] [id number], [place] [address] Jul, [facility] [address] [facility] [id number], [place] [id number] Jul, [facility] [place] [facility] [address] [id number], [place] [address] 65[address] Jul, [facility] [address] [facility] [id number], [place] [id number] Jul, [facility] [place] [facility] [address] [id number], [place] [address] 8[address] Jul, [facility] [address] [facility] [id number], [place] 006883086 Jul, [facility] [place] [facility] [address] [id number], [place] [address] 9[address] Jul, [facility] [place] [facility] [address] [id number], [place] [address] 8[address] Jun, [facility] [place] [facility] [address] [id number], [place] [address] 4[address] Jun, [facility] [address] [facility] [id number], [place] [id number] Jun, [facility] [place] [facility] [address] [id number], [place] [address]- 7361 14 Jun, 2014 [facility] [place] [facility] [address] [id number], [place] [address] 2073 Jun, [facility] [address] [id number] [place] [id number] Jun, [facility] [address] [id number] [place] [id number] Jun, [facility] [place] [facility] [address] [facility] [id number] [place] [address]- 4[address] Jun, [facility] [address] [id number] [place] [id number] Jun, [facility] [place] [facility] [address] [facility] [id number] [place] [address]- 5176 Jun, [facility] [address] [id number] [place] [id number] May, [facility] [place] [facility] [address] [facility] [id number], [place] [address] May, [facility] [address] [facility] [id number] [place] [id number] May, [facility] [place] [facility] [address] [facility] [id number], [place] 28437273- 2476 May, [facility] [place] [facility] [address] [facility] [id number], [place] 08301956- 3644 Apr, [facility] [place] [facility] [address] [facility] [id number], [place] 52318772- 5763 Apr, [facility] [address] [facility] [id number], [place] 786933607 Apr, [facility] [place] [facility] [address] [facility] [id number], [place] [address]- 9[address] Apr, [facility] [address] [id number] [place] [id number] Mar, [facility] [place] [facility] [address] [facility] [id number], [place] [address]- 8[address] Mar, [facility] [address] [facility] [id number] [place] [id number] Feb, [facility] [place] [facility] [address] [facility] [id number], [place] [address]- 2546 Feb, [facility] [address] [id number] [place] [id number] January, [facility] [place] [facility] [address] [id number] [place] [address]- 2546 January, [facility] [address] [id number] [place] 050066947 January, [facility] [place] [facility] [address] [id number] [place] [address]- 2546 January, [facility] [address] [id number] [place] [id number] Dec, [facility] [place] [facility] [address] [facility] [id number] [place] [address]- 6026 Dec, [facility] [address] [id number] [place] [id number] Dec, [facility] [place] [facility] [address]65[address], [place] [address]- 2546 Dec, [facility] [address] [id number], [place] 647501271 Nov, [facility] [place] [facility] [address]65[address], [place] [address]- 0226 Nov, [facility] [place] [facility] [address] [facility] [id number], [place] [address]- 77[address] Oct, [facility] [place] [facility] [address]65[address], [place] [address]- 1376 Oct, [facility] [place] [facility] [address] [facility] [id number], [place] [address]- 2546 Sep, [facility] [address] [id number] [place] [id number] Sep, [facility] [address] [id number] [place] [id number] Sep, [facility] [place] [facility] [address] [facility] [id number], [place] [address]- 2546 Sep, [facility] [address] [id number], [place] 154406864 Aug, [facility] [address] [id number], [place] [address]- 2846 Aug, [facility] [address] [id number], [place] [id number] Jul, [facility] [address] [facility] [id number], [place] [address]- 9966 Jul, [facility] [address] [id number], [place] 204199207 Jul, [facility] [place] [facility] [address] [facility] [id number], [place] [address]- 3367 Jul, [facility] [address] [facility] [id number], [place] 421657709 Jul, [facility] [place] [facility] [address]65[address], [place] [address]- 0598 Jul, [facility] [address] [facility] [id number], [place] 379481377 Jul, [facility] [place] [facility] [address] [id number]16[place]- [address] Jul, [facility] [place] [facility] [address] [place] [id number], [place] [address]- 1835 Jul, [facility] [address] [id number], [place] 416077279 Jun, [facility] [place] [facility] [address] [facility] [id number], [place] [address]- 3705 Jun, [facility] [address] [id number], [place] 672002850 Jun, [facility] [address] [id number], [place] 071796447 Jun, [facility] [place] [facility] [address] [facility] [id number], [place] 485195- [address]39 Jun, [facility] [place] [facility] [address] [facility] [id number], [place] 814[place]- 2943 Jun, [facility] [address] [id number] [place] 050554665 Jun, [facility] [address] [facility] [id number], [place] [address]- 5621 Jun, [facility] [place] [facility] [address] [facility] [id number], [place] [address]- 2541 Jun, [facility] [address] [id number] [place] [id number] May, [facility] [address] [id number] [place] 321250935 May, [facility] [address] [id number] [place] 521045482 May, [facility] [address] [id number] [place] 155923219 May, [facility] [address] [id number] [place] 191126425 Apr, [facility] [address] [id number] [place] 480611280 Feb, [facility] [address] [id number] [place] 806077472 Feb, [facility] [address]65100[place], [place] [address]- 2219 Feb, [facility] [address] [id number] [place] 865019923 January, [facility] [address] [facility] [id number], [place] [address]- [address] January, [facility] [address] [id number] [place] 468954712 January, [facility] [address] [id number] [place] 535172473 January, [facility] [address] [id number], [place] 955147857 January, [facility] [place] [facility] [address] [facility] [id number], [place] [address]- 7006 Nov, [facility] [place] [facility] [address], [place] [address]- 2546 Nov, [facility] [address] [id number] [place] 548761958 Oct, [facility] [address] [id number] [place] 159319102 Oct, [facility] [address] [id number] [place] 707788726 Oct, [facility] [address] [id number] [place] 416498214 Oct, [facility] [address] [facility] [id number], [place] [address]- 2546 Oct, [facility] [address] [facility] [id number], [place] [address]- 2546 Oct, [facility] [address] [id number], [place] 347141355 Sep, [facility] [address]65[address], [place] [address]- 2546 Sep, [facility] [address] [id number], [place] 641045004 Sep, [facility] [address] [id number] [place] 369518172 Sep, [facility] [address] [id number], [place] 157870765 Jun, [facility] [address] [facility] [id number], [place] [address]- 2546 Jun, [facility] [address] [id number] [place] 344293221 May, [facility] [address] [id number] [place] 436273408 May, [facility] [address] [id number] [place] 582101941 Apr, [facility] [address] [id number] [place] 369778839 Apr, [facility] [address] [id number] [place] 078191557 Apr, [facility] [address] [id number], [place] 344750725 Mar, [facility] [address]65[address], [place] [address]- 2546 Feb, [facility] [id number], [place] 688[address]16[address] Nov, [facility] [id number], [place] [address] Nov, [facility] [id number] [place] [address]- 2546 Nov, [facility] [id number] [place] [address]- [address] Nov, [facility] [id number] [place] [address] 833[address]- 2546 Nov, [facility] [id number], [place] 6938[address]497 Nov, [facility] [id number], [place] 9898[address]65 Sep, [facility] [id number], [place] 744296882 Sep, IMMUNIZATIONS No Known Immunizations SOCIAL HISTORY Never Assessed REASON FOR VISIT 3 month follow up on neuropathy and HTN. States she stopped Gabapentin x 2 weeks , "I felt weird". alivno Almanza PLAN OF CARE Activity Details Follow Up 3 Months Reason:CHM HTN Neuropathy VITAL SIGNS Height 62 in 2017-03-15 Weight 171.5 lbs 2017-03-15 Temperature 97.9 degrees Fahrenheit 2017-03-15 Heart Rate 82 bpm 2017-03-15 Respiratory Rate 16 2017-03-15 BMI 31.36 kg/m2 2017-03-15 Blood pressure systolic 120 mmHg 2017-03-15 Blood pressure diastolic 78 mmHg 2017-03-15 MEDICATIONS Medication Instructions Dosage Frequency Start Date End Date Duration Status Prelief 340 (65-50) MG (CA-P) Orally 8 time(s) a day 2 tablets Active Toviaz 4 MG Orally Once a day 1 tablet 24h Active Boniva 150 MG Orally Once per month 1 tablet 30 Active Omeprazole 20MG TAKE ONE CAPSULE BY MOUTH BEFORE MEAL(S) TWICE DAILY 20 Active Hydrochlorothiazide 25MG oral daily 1 tablet 24h 0 Active Amitriptyline HCl 10 MG Orally Once a day 1 tablet 24h 0 Active Levothyroxine Sodium 75 mcg Orally Once a day 1 tablet 24h Active Baclofen 10 mg Orally Once a day 1 tablet with food or milk 24h 0 Active Ventolin HFA 90 MCG/ACT Inhalation every 4 hrs 2 puffs as needed 4h 0 Active Rosuvastatin Calcium 10 mg Orally Once a day 1 tablet 24h Nov, 0 days Active Fluticasone Propionate 50 mcg/act Nasally Once a day 2 spray in each nostril 24h 0 Active MiraLax Active RESULTS No Results PROCEDURES Procedure Date Ordered Result Body Site [facility] ESTABLISHED PATIENT March 15, 2017 INSTRUCTIONS MEDICATIONS ADMINISTERED No Known Medications [...] [id number] 03/06/2016 Surgical History Hemmroidectomy-Dr. Y[place] 2013 Hospitalization History surgeries Hospitalization History [facility] for abdominal/chest pain 07/2015 Hospitalization History Inpt for lumbar surgery x's 10 days 02/2015 Hospitalization History Pt was in [facility] for rehab from surgery, Dx with UTI
--- OUTSIDE RECORDS SUMMARY | 2018-07-27 08:43 | XMS REPORT ---
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.14 Active 133829775 Problem Hirsutism 704.1 Active 959681722 Problem Actinic keratosis 702.0 Active 050970900 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 078425435 Problem Other psoriasis 696.1 Active 3803010 Problem Other and unspecified hyperlipidemia 272.4 Active 43539027 Problem Lumbago 724.2 Active 027529435 Problem Unspecified hypothyroidism 244.9 Active 49558292 Problem Unspecified backache 724.5 Active 624343954 Problem Hyperlipemia, mixed E78.2 Active 281752153 Problem Essential hypertension I10 Active 25320943 Problem Esophageal reflux K21.9 Active 191995040 Problem Hypothyroidism, unspecified type E03.9 Active 79784050 Problem Neuropathy G62.9 Active 525338804 Problem Diverticulosis of colon (without mention of hemorrhage) 562.10 Active 541318917 Problem Anal fissure 565.0 Active 98282936 Problem Sciatica 724.3 Active 35620390 Problem Otitis media with effusion, right H65.91 Active 72494361 Problem Acquired hypothyroidism E03.9 Active 797054453 Problem Abnormal mammogram of left breast R92.8 Active 898859218 Problem Multiple joint pain M25.50 Active 67297132 Problem Abdominal pain, left lower quadrant 789.04 Active 909865684 Problem Acute bronchitis 466.0 Active 68963903 Problem Dysphagia, unspecified 787.20 Active 12998536 Problem Acute maxillary sinusitis 461.0 Active 34748432 Problem Esophageal reflux 530.81 Active 046652382 Problem Chronic airway obstruction, not elsewhere classified 496 Active 29530232 Problem Benign paroxysmal positional vertigo 386.11 Active 116111017 Problem Allergic rhinitis due to pollen 477.0 Active 01146515 Problem External hemorrhoids with other complication 455.5 Active 51763972 Problem Internal hemorrhoids without mention of complication 455.0 Active 88204539 ALLERGIES Unknown Allergies SOCIAL HISTORY No smoking Hx information available PLAN OF CARE VITAL SIGNS MEDICATIONS Medication Instructions Dosage Frequency Start Date End Date Duration Status Levothyroxine Sodium 75 MCG Orally Once a day 1 tablet 24h 0 days Active Diclofenac Sodium 75MG Orally 2 times a day PRN 1 tablet 0 days Active RESULTS No Results PROCEDURES No Known procedures IMMUNIZATIONS No Known Immunizations
--- OUTSIDE RECORDS SUMMARY | 2018-07-27 08:43 | XMS REPORT ---
Author Author ROOPA FOSTER [facility] Address [address] [place] [address] Care Team Providers Care Parking Lot Attendant Name Role Phone ROOPA FOSTER Unavailable PROBLEMS Type Condition ICD9-CM Code [id number] Code Onset Dates Condition Status SNOMED Code Problem Acute maxillary sinusitis 461.0 Active 87613098 Problem Hirsutism 704.1 Active 647211093 Problem Actinic keratosis 702.0 Active 569756026 Problem Esophageal reflux 530.81 Active 312271649 Problem Sciatica 724.3 Active 40531956 Problem Acute bronchitis 466.0 Active 13082013 Problem Diverticulosis of colon (without mention of hemorrhage) 562.10 Active 377054613 Problem External hemorrhoids with other complication 455.5 Active 22496096 Problem Internal hemorrhoids without mention of complication 455.0 Active 84117883 Problem Benign paroxysmal positional vertigo 386.11 Active 030508731 Problem Abdominal pain, left lower quadrant 789.04 Active 682932107 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 418910847 Problem Primary localized osteoarthrosis, 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.14 Active 305663739 Problem Hyperlipemia, mixed E78.2 Active 162075446 Problem Otitis media with effusion, right H65.91 Active 41346601 Problem Essential hypertension I10 Active 31068075 Problem Hypothyroidism, unspecified type E03.9 Active 27999679 Problem Neuropathy G62.9 Active 753227402 Problem Other psoriasis 696.1 Active 0615724 Problem Unspecified hypothyroidism 244.9 Active 11457955 Problem Other and unspecified hyperlipidemia 272.4 Active 28616984 Problem Multiple joint pain M25.50 Active 72106475 Problem Esophageal reflux K21.9 Active 840562499 Problem Abnormal mammogram of left breast R92.8 Active 656594595 Problem Acquired hypothyroidism E03.9 Active 591785500 Problem Pain in joint, shoulder region 719.41 Active 759725184 Problem Memory loss 780.93 Active 91985836 Problem Pain in joint, site unspecified 719.40 Active 63776946 Problem Dysphagia, unspecified 787.20 Active 83547903 Problem Anal fissure 565.0 Active 94990470 Problem Unspecified backache 724.5 Active 583707980 Problem Allergic rhinitis due to pollen 477.0 Active 21452425 Problem Lumbago 724.2 Active 396140127 Problem Degeneration of intervertebral disc, site unspecified 722.6 Active 30988265 Problem Chronic airway obstruction, not elsewhere classified 496 Active 33231481 ALLERGIES Unknown Allergies SOCIAL HISTORY No smoking Hx information available PLAN OF CARE VITAL SIGNS MEDICATIONS Medication Instructions Dosage Frequency Start Date End Date Duration Status Crestor 20 mg Orally Once a day 1 tablet 24h 0 days Active Fish Oil 1000 MG Orally Once a day 1 capsule 24h Sep, Oct, 30 day(s) Active RESULTS No Results PROCEDURES No Known procedures IMMUNIZATIONS No Known Immunizations
--- OUTSIDE RECORDS SUMMARY | 2018-07-27 08:43 | XMS REPORT ---
Author Author YU WEBSTER [facility] eClinical[employer] Address Unknown Phone Unavailable Care Team Providers Care Bird Tender Name Role Phone YU WEBSTER CP Unavailable [...] Active Problem Unspecified backache 724.5 Active Assessment Actinic keratoses L57.0 Active Problem Acute sinusitis, unspecified 461.9 Active Problem Pain in joint, shoulder region 719.41 Active Problem Anal fissure 565.0 Active Problem Memory loss 780.93 Active Assessment Stuffy and runny nose J34.89 Active Problem Dysphagia, unspecified 787.20 Active Problem Pain in soft tissues of limb 729.5 Active Problem Personal history of colonic polyps V12.72 Active Medications Medication Code System Code Instructions Start Date End Date Status Dosage Fluticasone Propionate [facility] 33561681250 50MCG/AC USE TWO SPRAY(S ) IN EACH NOSTRIL ONCE DAILY Diclofenac Sodium [facility] [address]-86 75 MG Orally Twice a day December 31, 2015 1 tab VESIcare [facility] [address]-45 5 MG Orally Once a day 1 tablet Pseudoephedrine HCl [facility] [address]-02 120 MG Once a day Nov 01, 2014 1 Tablet by Oral route 1 time per day Levothyroxine Sodium [facility] 94712718123 50MCG TAKE ONE TABLET BY MOUTH ONCE DAILY Omeprazole [facility] [address]-39 20 MG Orally 2 times a day 1 capsule Crestor [facility] [address]-21 10 MG Orally Once a day Jul 15, 2015 1 tablet Ventolin HFA [facility] [address]-76 90 MCG/ACT Inhalation every 4 hrs 2 puffs as needed Bactrim [facility] [address]-11 400-80 MG Orally Once a day 2 tablets Fosamax [facility] 20158058865 70MG Orally one time/week 1 tablet Nitrofurantoin Macrocrystal [facility] [address]-04 50 MG Orally Once a day Aug 23, 2015 1 capsule at bedtime Hydrochlorothiazide [facility] [address]-85 25 MG Orally Once a day 1 tablet Procedures Procedure Coding System Code Date CRYOTHERAPY OF SKIN CPT-4 16738 Sep 27, 2015 Vital Signs Date/Time: Sep 27, 2015 Temperature 98.6 F Weight 187.8 lbs Height 62 in BMI 34.35 Index Blood Pressure Diastolic 70 mmHg Blood Pressure Systolic 120 mmHg Cardiac Monitoring Heart Rate 68 bpm Results No Known Results Summary Purpose eClinicalWorks Submission
--- OUTSIDE RECORDS SUMMARY | 2018-07-27 08:43 | XMS REPORT ---
Author Author YU WEBSTER [facility] e[employer] Address Unknown Phone Unavailable Care Team Providers Care Binder Cutter Hand Name Role Phone YU WEBSTER CP Unavailable Allergies No Known Allergies Problems Problem Type Condition ICD-9 Code Onset Dates Condition Status Problem Esophageal [...] Start Date End Date Status Dosage Omeprazole [facility] [address]-43 20 MG Orally 2 times a day Oct 10, 2014 take 1 capsule Results No Known Results Summary Purpose eClinicalWorks Submission
--- OUTSIDE RECORDS SUMMARY | 2018-07-27 08:44 | XMS REPORT ---
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 Active 621897931 Problem Hirsutism 704.1 Active 457376627 Problem Actinic keratosis 702.0 Active 734907138 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 145403380 Problem Other psoriasis 696.1 Active 9100838 Problem Other and unspecified hyperlipidemia 272.4 Active 45412815 Problem Lumbago 724.2 Active 716320942 Problem Unspecified hypothyroidism 244.9 Active 65568247 Problem Unspecified backache 724.5 Active 122821818 Problem Hyperlipemia, mixed E78.2 Active 890982857 Problem Essential hypertension I10 Active 43003011 Problem Esophageal reflux K21.9 Active 403659062 Problem Hypothyroidism, unspecified type E03.9 Active 01611628 Problem Neuropathy G62.9 Active 861217440 Problem Diverticulosis of colon (without mention of hemorrhage) 562.10 Active 863491710 Problem Anal fissure 565.0 Active 17986748 Problem Sciatica 724.3 Active 84405834 Problem Otitis media with effusion, right H65.91 Active 47169861 Problem Acquired hypothyroidism E03.9 Active 059228762 Problem Abnormal mammogram of left breast R92.8 Active 977452581 Problem Multiple joint pain M25.50 Active 00578984 Problem Abdominal pain, left lower quadrant 789.04 Active 961672258 Problem Acute bronchitis 466.0 Active 32093593 Problem Dysphagia, unspecified 787.20 Active 31952209 Problem Acute maxillary sinusitis 461.0 Active 19426438 Problem Esophageal reflux 530.81 Active 821016449 Problem Chronic airway obstruction, not elsewhere classified 496 Active 60428240 Problem Benign paroxysmal positional vertigo 386.11 Active 359899430 Problem Allergic rhinitis due to pollen 477.0 Active 15743457 Problem External hemorrhoids with other complication 455.5 Active 00002155 Problem Internal hemorrhoids without mention of complication 455.0 Active 52193885 ALLERGIES Substance Reaction Event Type Date Status Penicillin V Potassium hives Drug Allergy Jul, Active Biaxin Unknown Drug Allergy Jul, Active Amoxicillin hives Drug Allergy Jul, Active SOCIAL HISTORY No smoking Hx information available PLAN OF CARE Activity Details Follow Up 2 - 3 Days Reason:Fasting labs and 6 weeks for TSH VITAL SIGNS Height 62 in 2016-07-29 Weight 171.1 lbs 2016-07-29 Temperature 99.0 degrees Fahrenheit 2016-07-29 Heart Rate 72 bpm 2016-07-29 Respiratory Rate 16 2016-07-29 BMI 31.29 kg/m2 2016-07-29 Blood pressure systolic 128 mmHg 2016-07-29 Blood pressure diastolic 70 mmHg 2016-07-29 MEDICATIONS Medication Instructions Dosage Frequency Start Date End Date Duration Status MiraLax Active Omeprazole 20MG TAKE ONE CAPSULE BY MOUTH BEFORE MEAL(S) TWICE DAILY Active Diclofenac Sodium 75MG Orally 2 times a day PRN 1 tablet Active Hydrochlorothiazide 25 MG Orally Once a day 1 tablet 24h Active Nitrofurantoin Macrocrystal 100 MG Orally Once a day 1 capsule 24h Aug, Active Levothyroxine Sodium 75 MCG Orally Once a day TAKE ONE TABLET BY MOUTH ONCE DAILY 24h Active Fluticasone Propionate 50MCG/AC USE TWO SPRAY(S) IN EACH NOSTRIL ONCE DAILY Active Prelief 340 (65-50) MG (CA-P) Orally 8 time(s) a day 2 tablets Active Ventolin HFA 90 MCG/ACT Inhalation every 4 hrs 2 puffs as needed 4h Active Crestor 10 mg Orally Once a day 1 tablet 24h Active Baclofen 10 mg Orally Once a day 1 tablet with food or milk 24h Active Toviaz 4 MG Orally Once a day 1 tablet 24h Active Boniva 150 MG Orally Once per month 1 tablet Oct, Active RESULTS No Results PROCEDURES Procedure Date Ordered Related Diagnosis Body Site [facility] VISIT ESTABLISHED PATIENT Jul 29, 2016 Office Visit, Est Pt., Level 3 Jul 29, 2016 IMMUNIZATIONS No Known Immunizations
--- OUTSIDE RECORDS SUMMARY | 2018-07-27 08:44 | XMS REPORT ---
Author Author JULIAON CARDENAS Organization [employer] Address Unknown Phone Unavailable Care Team Providers Care Product Applications Engineer Name Role Phone JULIANO CARDENAS CP Unavailable [...] Unspecified backache 724.5 Active Assessment Urinary tract infection, site not specified 599.0 Active Problem Acute sinusitis, unspecified 461.9 Active Problem Pain in joint, shoulder region 719.41 Active Problem Anal fissure 565.0 Active Problem Memory loss 780.93 Active Assessment Encounter for immunization Z23 Active Problem Dysphagia, unspecified 787.20 Active Problem Pain in soft tissues of limb 729.5 Active Problem Personal history of colonic polyps V12.72 Active Medications Medication Code System Code Instructions Start Date End Date Status Dosage Diclofenac Sodium [facility] 98220614511 75MG take 1 Tablet by Oral route 2 times per day PRN Fosamax [facility] [address]-29 70 MG Orally one time/week Jun 26, [address] [facility] [address]-59 50 mcg/actuation Jul 30, 2014 2 sprays by Nasal route 1 time per day Omeprazole [facility] [address]-61 20 MG Orally 2 times a day Oct 10, 2014 take [address] [facility] [address]-66 25 mg December 06, 2013 1 tablet by Oral route 1 time per day levothyroxine ND 0 50 mcg Aug 13, 2014 1 tablet by Oral route 1 time per day Ventolin HFA [facility] [address]-73 90 mcg/actuation Aug 22, 2014 inhale 1-2 puff by Inhalation route as needed 2 times per day PRN cough or shortness of breath Cipro [facility] [address]-63 500 MG Orally Twice a day Jun 20, 2015 Jun 25, [address] [facility] 70495502780 80MG Orally Once a day 1 tablet in the evening Procedures Procedure Coding System Code Date Office Visit, Est Pt., Level 3 CPT-4 50976 Jun 20, 2015 FLUARIX QUAD (3 & UP)-GSK-2014 CPT-4 47410 Jun 20, 2015 [facility] VISIT ESTABLISHED PATIENT CPT-4 G0467 Jun 20, 2015 URINALYSIS, AUTO, W/O SCOPE CPT-4 85052 Jun 20, 2015 SINGLE IMMUNIZATION ADMIN CPT-4 02279 Jun 20, 2015 Vital Signs Date/Time: Jun 20, 2015 Temperature 98.3 F Weight 175 lbs Height 62 in BMI 32.00 Index Blood Pressure Diastolic 70 mmHg Blood Pressure Systolic 130 mmHg Cardiac Monitoring Heart Rate 72 bpm Results Name Result Date Reference Range Unit Abnormality Flag UA LONG DIP (IN HOUSE) Immunizations Vaccine Administration Date FLUARIX QUAD (3 & UP)-GSK-2014Jun 20, 2015 Summary Purpose eClinicalWorks Submission
--- OUTSIDE RECORDS SUMMARY | 2018-07-27 08:47 | XMS REPORT | Continuity of Care Document ---
Author Author [facility] Address Unknown Phone Unavailable Allergies Active Description Code Type Severity Reaction Onset Reported/Identified Relationship to Patient Clinical Status Yes Penicillins Drug Allergy 09/30/2011 Yes Penicillins Drug Allergy N/A N/A 09/30/2011 Yes celecoxib [id number] Drug Allergy Unknown N/A 07/22/2015 Yes Sulfa (Sulfonamide Antibiotics) [id number] Drug Allergy Unknown N/A 2014 Yes celecoxib [id number] Drug Allergy Severe FACE SWELLING 07/20/2018 Yes Penicillins [id number] Drug Allergy Severe N/A 07/20/2018 Medications There is no data. Problems Date Dx Coded Attending Type Code Diagnosis Diagnosed By 09/23/2011 SUGAR DEVRIES MD 465.9 UPPER RESPIRATORY INFECTION 09/23/2011 SUGAR DEVRIES MD 49Jensen COPD 09/23/2011 SUGAR DEVRIES MD 465.9 UPPER RESPIRATORY INFECTION 09/23/2011 SUGAR DEVRIES MD 49Jensen COPD 09/23/2011 SUGAR DEVRIES MD 465.9 UPPER RESPIRATORY INFECTION 09/23/2011 SUGAR DEVRIES MD 49Jensen COPD 09/23/2011 465.9 UPPER RESPIRATORY INFECTION 09/23/2011 496 COPD 09/23/2011 465.9 UPPER RESPIRATORY INFECTION 09/23/2011 496 COPD 09/23/2011 465.9 UPPER RESPIRATORY INFECTION 09/23/2011 496 COPD 09/23/2011 465.9 UPPER RESPIRATORY INFECTION 09/23/2011 496 COPD 09/23/2011 465.9 UPPER RESPIRATORY INFECTION 09/23/2011 496 COPD 09/23/2011 JACLYN CRUZ DO 465.9 UPPER RESPIRATORY INFECTION 09/23/2011 JACLYN CRUZ DO 496 COPD 09/23/2011 JACLYN CRUZ DO 465.9 UPPER RESPIRATORY INFECTION 09/23/2011 JACLYN CRUZ DO 496 COPD 09/23/2011 JACLYN CRUZ DO 465.9 UPPER RESPIRATORY INFECTION 09/23/2011 CRUZ DO, JACLYN K 496 COPD 09/23/2011 CRUZ DO, JACLYN K 465.9 UPPER RESPIRATORY INFECTION 09/23/2011 CRUZ DO, JACLYN K 496 COPD 09/23/2011 CRUZ DO, JACLYN K 465.9 UPPER RESPIRATORY INFECTION 09/23/2011 CRUZ DO, JACLYN K 496 COPD 09/23/2011 CRUZ DO, JACLYN K 465.9 UPPER RESPIRATORY INFECTION 09/23/2011 CRUZ DO, JACLYN K 496 COPD 09/23/2011 HELL[employer]IG SAL[employer]ENT [employer]ING [employer], YU E 465.9 UPPER RESPIRATORY INFECTION 09/23/2011 HELLWIG SALES AGENT [employer]ING [employer], YU E 496 COPD 09/23/2011 CRUZ DO, JACLYN K 465.9 UPPER RESPIRATORY INFECTION 09/23/2011 CRUZ DO, JACLYN K 496 COPD 09/23/2011 HELLWIG SALES AGENT [employer]ING SERVICE, YU E 465.9 UPPER RESPIRATORY INFECTION 09/23/2011 HELLWIG SALES AGENT [employer] VENDING SERVICE, YU E 496 COPD 09/23/2011 HELLWIG SALES AGENT [employer] VENDING SERVICE, YU E 465.9 UPPER RESPIRATORY INFECTION 09/23/2011 HELLWIG SALES AGENT [employer] VENDING SERVICE, YU E 496 COPD 09/23/2011 HELLWIG SALES AGENT [employer] VENDING SERVICE, YU E 465.9 UPPER RESPIRATORY INFECTION 09/23/2011 HELLWIG SALES AGENT FO[employer] VENDING SERVICE, YU E 496 COPD 09/23/2011 HELLWIG SALES AGENT FO[employer] VENDING SERVICE, YU E 465.9 UPPER RESPIRATORY INFECTION 09/23/2011 HELLWIG SALES AGENT [employer] VENDING SERVICE, YU E 496 COPD 09/23/2011 CRUZ DO, JACLYN K 465.9 UPPER RESPIRATORY INFECTION 09/23/2011 CRUZ DO, JACLYN K 496 COPD 09/23/2011 465.9 UPPER RESPIRATORY INFECTION 09/23/2011 496 COPD 09/30/2011 SUGAR DEVRIES MD 461.9 SINUSITIS ACUTE 09/30/2011 SUGAR DEVRIES MD 461.9 SINUSITIS ACUTE 09/30/2011 SUGAR DEVRIES MD 461.9 SINUSITIS ACUTE 09/30/2011 461.9 SINUSITIS ACUTE 09/30/2011 461.9 SINUSITIS ACUTE 09/30/2011 461.9 SINUSITIS ACUTE 09/30/2011 461.9 SINUSITIS ACUTE 09/30/2011 461.9 SINUSITIS ACUTE 09/30/2011 CRUZ DO, JACLYN K 461.9 SINUSITIS ACUTE 09/30/2011 CRUZ DO, JACLYN K 461.9 SINUSITIS ACUTE 09/30/2011 CRUZ DO, JACLYN K 461.9 SINUSITIS ACUTE 09/30/2011 CRUZ DO, JACLYN K 461.9 SINUSITIS ACUTE 09/30/2011 CRUZ DO, JACLYN K 461.9 SINUSITIS ACUTE 09/30/2011 CRUZ DO, JACLYN K 461.9 SINUSITIS ACUTE 09/30/2011 HELL[employer]IG SALES AGENT [employer]ING SERVICE, YU E 461.9 SINUSITIS ACUTE 09/30/2011 CRUZ DO, JACLYN K 461.9 SINUSITIS ACUTE 09/30/2011 HELLWIG SALES AGENT [employer]ING SERVICE, YU E 461.9 SINUSITIS ACUTE 09/30/2011 HELLWIG SALES AGENT [employer] VENDING SERVICE, YU E 461.9 SINUSITIS ACUTE 09/30/2011 HELLWIG SALES AGENT FO[employer] VENDING SERVICE, YU E 461.9 SINUSITIS ACUTE 09/30/2011 HELLWIG SALES AGENT [employer] VENDING SERVICE, YU E 461.9 SINUSITIS ACUTE 09/30/2011 CRUZ DO, JACLYN K 461.9 SINUSITIS ACUTE 09/30/2011 461.9 SINUSITIS ACUTE 11/20/2011 SUGAR DEVRIES MD 599.0 URINARY TRACT INFECTION SITE NOT SPECIFIED 11/20/2011 SUGAR DEVRIES MD 719.44 PAIN IN JOINT INVOLVING HAND 11/20/2011 SUGAR DEVRIES MD 724.2 LUMBAGO 11/20/2011 SUGAR DEVRIES MD 599.0 URINARY TRACT INFECTION SITE NOT SPECIFIED 11/20/2011 SUGAR DEVRIES MD 719.44 PAIN IN JOINT INVOLVING HAND 11/20/2011 SUGAR DEVRIES MD 724.2 LUMBAGO 11/20/2011 SUGAR DEVRIES MD 599.0 URINARY TRACT INFECTION SITE NOT SPECIFIED 11/20/2011 SUGAR DEVRIES MD 719.44 PAIN IN JOINT INVOLVING HAND 11/20/2011 SUGAR DEVRIES MD 724.2 LUMBAGO 11/20/2011 599.0 URINARY TRACT INFECTION SITE NOT SPECIFIED 11/20/2011 719.44 PAIN IN JOINT INVOLVING HAND 11/20/2011 724.2 LUMBAGO 11/20/2011 599.0 URINARY TRACT INFECTION SITE NOT SPECIFIED 11/20/2011 719.44 PAIN IN JOINT INVOLVING HAND 11/20/2011 724.2 LUMBAGO 11/20/2011 599.0 URINARY TRACT INFECTION SITE NOT SPECIFIED 11/20/2011 719.44 PAIN IN JOINT INVOLVING HAND 11/20/2011 724.2 LUMBAGO 11/20/2011 599.0 URINARY TRACT INFECTION SITE NOT SPECIFIED 11/20/2011 719.44 PAIN IN JOINT INVOLVING HAND 11/20/2011 724.2 LUMBAGO 11/20/2011 599.0 URINARY TRACT INFECTION SITE NOT SPECIFIED 11/20/2011 719.44 PAIN IN JOINT INVOLVING HAND 11/20/2011 724.2 LUMBAGO 11/20/2011 CRUZ DO, JACLYN K 599.0 URINARY TRACT INFECTION SITE NOT SPECIFIED 11/20/2011 CRUZ DO, JACLYN K 719.44 PAIN IN JOINT INVOLVING HAND 11/20/2011 CRUZ DO, JACLYN K 724.2 LUMBAGO 11/20/2011 CRUZ DO, JACLYN K 599.0 URINARY TRACT INFECTION SITE NOT SPECIFIED 11/20/2011 CRUZ DO, JACLYN K 719.44 PAIN IN JOINT INVOLVING HAND 11/20/2011 CRUZ DO, JACLYN K 724.2 LUMBAGO 11/20/2011 CRUZ DO, JACLYN K 599.0 URINARY TRACT INFECTION SITE NOT SPECIFIED 11/20/2011 CRUZ DO, JACLYN K 719.44 PAIN IN JOINT INVOLVING HAND 11/20/2011 CRUZ DO, JACLYN K 724.2 LUMBAGO 11/20/2011 CRUZ DO, JACLYN K 599.0 URINARY TRACT INFECTION SITE NOT SPECIFIED 11/20/2011 CRUZ DO, JACLYN K 719.44 PAIN IN JOINT INVOLVING HAND 11/20/2011 CRUZ DO, JACLYN K 724.2 LUMBAGO 11/20/2011 CRUZ DO, JACLYN K 599.0 URINARY TRACT INFECTION SITE NOT SPECIFIED 11/20/2011 CRUZ DO, JACYLN K 719.44 PAIN IN JOINT INVOLVING HAND 11/20/2011 CRUZ DO, JACLYN K 724.2 LUMBAGO 11/20/2011 RCUZ DO, JACLYN K 599.0 URINARY TRACT INFECTION SITE NOT SPECIFIED 11/20/2011 CRUZ DO, JACLYN K 719.44 PAIN IN JOINT INVOLVING HAND 11/20/2011 CRUZ DO, JACLYN K 724.2 LUMBAGO 11/20/2011 YU WEBSTER APRN 599.0 URINARY TRACT INFECTION SITE NOT SPECIFIED 11/20/2011 HELLWIG SALES AGENT [employer] VENDING SERVICE YU E 719.44 PAIN IN JOINT INVOLVING HAND 11/20/2011 HELLWIG SALES AGENT FO[employer] VENDING SERVICE YU E 724.2 LUMBAGO 11/20/2011 CRUZ DO JACLYN K 599.0 URINARY TRACT INFECTION SITE NOT SPECIFIED 11/20/2011 CRUZ DOJACLYN K 719.44 PAIN IN JOINT INVOLVING HAND 11/20/2011 CRUZ DO JACLYN K 724.2 LUMBAGO 11/20/2011 HELLWIG SALES AGENT FO[employer] VENDING SERVICE YU E 599.0 URINARY TRACT INFECTION SITE NOT SPECIFIED 11/20/2011 HELLWIG SALES AGENT [employer] VENDING SERVICE, YU E 719.44 PAIN IN JOINT INVOLVING HAND 11/20/2011 HELLWIG SALES AGENT FO[employer] VENDING SERVICE YU E 724.2 LUMBAGO 11/20/2011 HELLWIG SALES AGENT FO[employer] VENDING SERVICE YU E 599.0 URINARY TRACT INFECTION SITE NOT SPECIFIED 11/20/2011 SATISHLALEXANDER SALES AGENT FO[employer] VENDING SERVICE YU E 719.44 PAIN IN JOINT INVOLVING HAND 11/20/2011 HELLWIG SALES AGENT FO[employer] VENDING SERVICE YU E 724.2 LUMBAGO 11/20/2011 HELLWIG SALES AGENT FO[employer] VENDING SERVICE, YU E 599.0 URINARY TRACT INFECTION SITE NOT SPECIFIED 11/20/2011 SATISHLALEXANDER SALES AGENT FOOD VENDING SERVICE YU E 719.44 PAIN IN JOINT INVOLVING HAND 11/20/2011 HELLWIG SALES AGENT FO[employer] VENDING SERVICE, YU E 724.2 LUMBAGO 11/20/2011 HELLWIG SALES AGENT FO[employer] VENDING SERVICE, YU E 599.0 URINARY TRACT INFECTION SITE NOT SPECIFIED 11/20/2011 SATISHLWIG SALES AGENT FO[employer] VENDING SERVICE YU E 719.44 PAIN IN JOINT INVOLVING HAND 11/20/2011 HELLWIG SALES AGENT FO[employer] VENDING SERVICE, YU E 724.2 LUMBAGO 11/20/2011 CRUZ DO JACLYN K 599.0 URINARY TRACT INFECTION SITE NOT SPECIFIED 11/20/2011 ANTHONY DOJACLYN K 719.44 PAIN IN JOINT INVOLVING HAND 11/20/2011 CRUZ DO JACLYN K 724.2 LUMBAGO 11/20/2011 599.0 URINARY TRACT INFECTION SITE NOT SPECIFIED 11/20/2011 719.44 PAIN IN JOINT INVOLVING HAND 11/20/2011 724.2 LUMBAGO 12/04/2011 DEVRIES SUGAR BENAVIDEZ 715.14 OSTEOARTHROSIS LOCALIZED PRIMARY INVOLVING HAND 12/04/2011 SUGAR DEVRIES MD 715.14 OSTEOARTHROSIS LOCALIZED PRIMARY INVOLVING HAND 12/04/2011 SUGAR DEVRIES MD 715.14 OSTEOARTHROSIS LOCALIZED PRIMARY INVOLVING HAND 12/04/2011 715.14 OSTEOARTHROSIS LOCALIZED PRIMARY INVOLVING HAND 12/04/2011 715.14 OSTEOARTHROSIS LOCALIZED PRIMARY INVOLVING HAND 12/04/2011 715.14 OSTEOARTHROSIS LOCALIZED PRIMARY INVOLVING HAND 12/04/2011 715.14 OSTEOARTHROSIS LOCALIZED PRIMARY INVOLVING HAND 12/04/2011 715.14 OSTEOARTHROSIS LOCALIZED PRIMARY INVOLVING HAND 12/04/2011 ANTHONY DE LA TORRE JACLYN K 715.14 OSTEOARTHROSIS LOCALIZED PRIMARY INVOLVING HAND 12/04/2011 ANTHONY DE LA TORRE JACLYN K 715.14 OSTEOARTHROSIS LOCALIZED PRIMARY INVOLVING HAND 12/04/2011 ANTHONY DE LA TORRE JACLYN K 715.14 OSTEOARTHROSIS LOCALIZED PRIMARY INVOLVING HAND 12/04/2011 ANTHONY DE LA TORRE JACLYN K 715.14 OSTEOARTHROSIS LOCALIZED PRIMARY INVOLVING HAND 12/04/2011 ROBERT CRUZ DOA K 715.14 OSTEOARTHROSIS LOCALIZED PRIMARY INVOLVING HAND 12/04/2011 ANTHONY DE LA TORRE JACLYN K 715.14 OSTEOARTHROSIS LOCALIZED PRIMARY INVOLVING HAND 12/04/2011 SATISHLALEXANDER SALES AGENT FO[employer] VENDING SERVICE, YU E 715.14 OSTEOARTHROSIS LOCALIZED PRIMARY INVOLVING HAND 12/04/2011 ANTHONY DE LA TORRE JACLYN K 715.14 OSTEOARTHROSIS LOCALIZED PRIMARY INVOLVING HAND 12/04/2011 DARIN SALES AGENT FO[employer] VENDING SERVICE, YU E 715.14 OSTEOARTHROSIS LOCALIZED PRIMARY INVOLVING HAND 12/04/2011 SATISHLALEXANDER SALES AGENT FO[employer] VENDING SERVICE, YU E 715.14 OSTEOARTHROSIS LOCALIZED PRIMARY INVOLVING HAND 12/04/2011 SATISHLALEXANDER SALES AGENT [employer] VENDING SERVICE, YU E 715.14 OSTEOARTHROSIS LOCALIZED PRIMARY INVOLVING HAND 12/04/2011 DARIN SALES AGENT [employer] VENDING SERVICE, YU E 715.14 OSTEOARTHROSIS LOCALIZED PRIMARY INVOLVING HAND 12/04/2011 ROBERT CRUZ DOA K 715.14 OSTEOARTHROSIS LOCALIZED PRIMARY INVOLVING HAND 12/04/2011 715.14 OSTEOARTHROSIS LOCALIZED PRIMARY INVOLVING HAND 04/04/2012 SUGAR DEVRIES MD 244.9 HYPOTHYROIDISM 04/04/2012 SUGAR DEVRIES MD 272.4 OTHER AND UNSPECIFIED HYPERLIPIDEMIA 04/04/2012 SUGAR DEVRIES MD V76.10 BREAST CANCER SCREENING 04/04/2012 SUGAR DEVRIES MD 244.9 HYPOTHYROIDISM 04/04/2012 SUGAR DEVRIES MD 272.4 OTHER AND UNSPECIFIED HYPERLIPIDEMIA 04/04/2012 SUGAR DEVRIES MD V76.10 BREAST CANCER SCREENING 04/04/2012 SUGAR DEVRIES MD 244.9 HYPOTHYROIDISM 04/04/2012 SUGAR DEVRIES MD 272.4 OTHER AND UNSPECIFIED HYPERLIPIDEMIA 04/04/2012 SUGAR DEVRIES MD V76.10 BREAST CANCER SCREENING 04/04/2012 244.9 HYPOTHYROIDISM 04/04/2012 272.4 OTHER AND UNSPECIFIED HYPERLIPIDEMIA 04/04/2012 V76.10 BREAST CANCER SCREENING 04/04/2012 244.9 HYPOTHYROIDISM 04/04/2012 272.4 OTHER AND UNSPECIFIED HYPERLIPIDEMIA 04/04/2012 V76.10 BREAST CANCER SCREENING 04/04/2012 244.9 HYPOTHYROIDISM 04/04/2012 272.4 OTHER AND UNSPECIFIED HYPERLIPIDEMIA 04/04/2012 V76.10 BREAST CANCER SCREENING 04/04/2012 244.9 HYPOTHYROIDISM 04/04/2012 272.4 OTHER AND UNSPECIFIED HYPERLIPIDEMIA 04/04/2012 V76.10 BREAST CANCER SCREENING 04/04/2012 244.9 HYPOTHYROIDISM 04/04/2012 272.4 OTHER AND UNSPECIFIED HYPERLIPIDEMIA 04/04/2012 V76.10 BREAST CANCER SCREENING 04/04/2012 CRUZ DO, JACLYN K 244.9 HYPOTHYROIDISM 04/04/2012 CRUZ DO, JACLYN K 272.4 OTHER AND UNSPECIFIED HYPERLIPIDEMIA 04/04/2012 CRUZ DO, JACLYN K V76.10 BREAST CANCER SCREENING 04/04/2012 CRUZ DO, JACLYN K 244.9 HYPOTHYROIDISM 04/04/2012 CRUZ DO, JACLYN K 272.4 OTHER AND UNSPECIFIED HYPERLIPIDEMIA 04/04/2012 CRUZ DO, JACLYN K V76.10 BREAST CANCER SCREENING 04/04/2012 CRUZ DO, JACLYN K 244.9 HYPOTHYROIDISM 04/04/2012 CRUZ DO, JACLYN K 272.4 OTHER AND UNSPECIFIED HYPERLIPIDEMIA 04/04/2012 CRUZ DO, JACLYN K V76.10 BREAST CANCER SCREENING 04/04/2012 CRUZ DO, JACLYN K 244.9 HYPOTHYROIDISM 04/04/2012 CRUZ DO, JACLYN K 272.4 OTHER AND UNSPECIFIED HYPERLIPIDEMIA 04/04/2012 CRUZ DO, JACLYN K V76.10 BREAST CANCER SCREENING 04/04/2012 CRUZ DO, JACLYN K 244.9 HYPOTHYROIDISM 04/04/2012 CRUZ DO, JACLYN K 272.4 OTHER AND UNSPECIFIED HYPERLIPIDEMIA 04/04/2012 CRUZ DO, JACLYN K V76.10 BREAST CANCER SCREENING 04/04/2012 CRUZ DO, JACLYN K 244.9 HYPOTHYROIDISM 04/04/2012 CRUZ DO, JACLYN K 272.4 OTHER AND UNSPECIFIED HYPERLIPIDEMIA 04/04/2012 CRUZ DO, JACLYN K V76.10 BREAST CANCER SCREENING 04/04/2012 [facility] FOOD VENDING SERVICE, YU E 244.9 HYPOTHYROIDISM 04/04/2012 HELLWIG SALES AGENT FO[employer] VENDING SERVICE, YU E 272.4 OTHER AND UNSPECIFIED HYPERLIPIDEMIA 04/04/2012 HELLWIG SALES AGENT FOOD VENDING SERVICE, YU E V76.10 BREAST CANCER SCREENING 04/04/2012 CRUZ DO, JACLYN K 244.9 HYPOTHYROIDISM 04/04/2012 CRUZ DO, JACLYN K 272.4 OTHER AND UNSPECIFIED HYPERLIPIDEMIA 04/04/2012 CRUZ DO, JACLYN K V76.10 BREAST CANCER SCREENING 04/04/2012 [facility] AGENT FOOD VENDING SERVICE, YU E 244.9 HYPOTHYROIDISM 04/04/2012 [facility], YU E 272.4 OTHER AND UNSPECIFIED HYPERLIPIDEMIA 04/04/2012 [facility] FOOD VENDING [facility], YU E V76.10 BREAST CANCER SCREENING 04/04/2012 HELLWIG SALES AGENT FO[employer] VENDING SERVICE, YU E 244.9 HYPOTHYROIDISM 04/04/2012 [facility]END[facility], YU E 272.4 OTHER AND UNSPECIFIED HYPERLIPIDEMIA 04/04/2012 [facility]END[facility], YU E V76.10 BREAST CANCER SCREENING 04/04/2012 HELLWIG SALES AGENT FO[employer] VENDING SERVICE, YU E 244.9 HYPOTHYROIDISM 04/04/2012 [facility] FOOD VEND[facility], YU E 272.4 OTHER AND UNSPECIFIED HYPERLIPIDEMIA 04/04/2012 [facility] FO[facility] VEND[facility], YU E V76.10 BREAST CANCER SCREENING 04/04/2012 HELLWIG SALES AGENT FO[employer] VENDING SERVICE, YU E 244.9 HYPOTHYROIDISM 04/04/2012 HELLWIG SALES AGENT FOOD VENDING SERVICE, YU E 272.4 OTHER AND UNSPECIFIED HYPERLIPIDEMIA 04/04/2012 HELLWIG SALES AGENT FOOD VENDING SERVICE, YU E V76.10 BREAST CANCER SCREENING 04/04/2012 CRUZ DO, JACLYN K 244.9 HYPOTHYROIDISM 04/04/2012 CRUZ DO, JACLYN K 272.4 OTHER AND UNSPECIFIED HYPERLIPIDEMIA 04/04/2012 CRUZ DO, JACLYN K V76.10 BREAST CANCER SCREENING 04/04/2012 244.9 HYPOTHYROIDISM 04/04/2012 272.4 OTHER AND UNSPECIFIED HYPERLIPIDEMIA 04/04/2012 V76.10 BREAST CANCER SCREENING 09/28/2012 SUGAR DEVRIES MD 565.0 ANAL FISSURE 09/28/2012 SUGAR DEVRIES MD 565.0 ANAL FISSURE 09/28/2012 SUGAR DEVRIES MD 565.0 ANAL FISSURE 09/28/2012 565.0 ANAL FISSURE 09/28/2012 565.0 ANAL FISSURE 09/28/2012 565.0 ANAL FISSURE 09/28/2012 565.0 ANAL FISSURE 09/28/2012 565.0 ANAL FISSURE 09/28/2012 ANTHONY DE LA TORRE JACLYN K 565.0 ANAL FISSURE 09/28/2012 CRUZ DO JACLYN K 565.0 ANAL FISSURE 09/28/2012 CRUZ DO JACLYN K 565.0 ANAL FISSURE 09/28/2012 ANTHONY DE LA TORRE JACLYN K 565.0 ANAL FISSURE 09/28/2012 CRUZ DO JACLYN K 565.0 ANAL FISSURE 09/28/2012 CRUZ DO JACLYN K 565.0 ANAL FISSURE 09/28/2012 HELLALEXANDER SALES AGENT FO[employer] VENDING SERVICE, YU E 565.0 ANAL FISSURE 09/28/2012 CRUZ DO JACLYN K 565.0 ANAL FISSURE 09/28/2012 HELLAELXANDER SALES AGENT FOOD VENDING SERVICE, YU E 565.0 ANAL FISSURE 09/28/2012 HELLALEXANDER SALES AGENT FO[employer] VENDING SERVICE, YU E 565.0 ANAL FISSURE 09/28/2012 HELLALEXANDER SALES AGENT FO[employer] VENDING SERVICE, YU E 565.0 ANAL FISSURE 09/28/2012 HELLALEXANDER BLEDSOE, YU E 565.0 ANAL FISSURE 09/28/2012 ROBERT CRUZ DOA K 565.0 ANAL FISSURE 10/13/2012 SUGAR DEVRIES MD 704.1 excessive facial or body hair (hirsutism) 10/13/2012 SUGAR DEVRIES MD 719.40 ARTHRALGIA 10/13/2012 SUGAR DEVRIES MD 719.41 joint pain, localized in the left shoulder 10/13/2012 SUGAR DEVRIES MD 704.1 excessive facial or body hair (hirsutism) 10/13/2012 SUGAR DEVRIES MD 719.40 ARTHRALGIA 10/13/2012 SUGAR DEVRIES MD 719.41 joint pain, localized in the left shoulder 10/13/2012 704.1 excessive facial or body hair (hirsutism) 10/13/2012 719.40 ARTHRALGIA 10/13/2012 719.41 joint pain, localized in the left shoulder 10/13/2012 704.1 excessive facial or body hair (hirsutism) 10/13/2012 719.40 ARTHRALGIA 10/13/2012 719.41 joint pain, localized in the left shoulder 10/13/2012 704.1 excessive facial or body hair (hirsutism) 10/13/2012 719.40 ARTHRALGIA 10/13/2012 719.41 joint pain, localized in the left shoulder 10/13/2012 704.1 excessive facial or body hair (hirsutism) 10/13/2012 719.40 ARTHRALGIA 10/13/2012 719.41 joint pain, localized in the left shoulder 10/13/2012 704.1 excessive facial or body hair (hirsutism) 10/13/2012 719.40 ARTHRALGIA 10/13/2012 719.41 joint pain, localized in the left shoulder 10/13/2012 JACLYN CRUZ DO K 704.1 excessive facial or body hair (hirsutism) 10/13/2012 ROBERT CRUZ DOA K 719.40 ARTHRALGIA 10/13/2012 ROBERT CRUZ DOA K 719.41 joint pain, localized in the left shoulder 10/13/2012 ROBERT CRUZ DOA K 704.1 excessive facial or body hair (hirsutism) 10/13/2012 CRUZ ROBERT DE LA TORREA K 719.40 ARTHRALGIA 10/13/2012 ROBERT CRUZ DOA K 719.41 joint pain, localized in the left shoulder 10/13/2012 ROBERT CRUZ DOA K 704.1 excessive facial or body hair (hirsutism) 10/13/2012 ROBERT CRUZ DOA K 719.40 ARTHRALGIA 10/13/2012 ROBERT CRUZ DOA K 719.41 joint pain, localized in the left shoulder 10/13/2012 CRUZ DO, JACLYN K 704.1 excessive facial or body hair (hirsutism) 10/13/2012 CRUZ DO, JACLYN K 719.40 ARTHRALGIA 10/13/2012 CRUZ DO, JACLYN K 719.41 joint pain, localized in the left shoulder 10/13/2012 CRUZ DO, JACLYN K 704.1 excessive facial or body hair (hirsutism) 10/13/2012 CRUZ DO, JACLYN K 719.40 ARTHRALGIA 10/13/2012 CRUZ DO, JACLYN K 719.41 joint pain, localized in the left shoulder 10/13/2012 CRUZ DO, JACLYN K 704.1 excessive facial or body hair (hirsutism) 10/13/2012 CRUZ DO, JACLYN K 719.40 ARTHRALGIA 10/13/2012 CRUZ DO, JACLYN K 719.41 joint pain, localized in the left shoulder 10/13/2012 DARIN SALES AGENT FO[employer] VENDING SERVICE YU E 704.1 excessive facial or body hair (hirsutism) 10/13/2012 HELLWIG SALES AGENT FOOD VENDING SERVICE, YU E 719.40 ARTHRALGIA 10/13/2012 HELLWIG SALES AGENT FOOD VENDING SERVICE, YU E 719.41 joint pain, localized in the left shoulder 10/13/2012 CRUZ DO, JACLYN K 704.1 excessive facial or body hair (hirsutism) 10/13/2012 CRUZ DO, JACLYN K 719.40 ARTHRALGIA 10/13/2012 CRUZ DO, JACLYN K 719.41 joint pain, localized in the left shoulder 10/13/2012 HELLWIG SALES AGENT FO[employer] VENDING SERVICE, YU E 704.1 excessive facial or body hair (hirsutism) 10/13/2012 HELLWIG SALES AGENT FOOD VENDING SERVICE, YU E 719.40 ARTHRALGIA 10/13/2012 HELLWIG SALES AGENT FOOD VENDING SERVICE, YU E 719.41 joint pain, localized in the left shoulder 10/13/2012 HELLWIG SALES AGENT FOOD VENDING SERVICE, YU E 704.1 excessive facial or body hair (hirsutism) 10/13/2012 HELLWIG SALES AGENT FOOD VENDING SERVICE, YU E 719.40 ARTHRALGIA 10/13/2012 HELLWIG SALES AGENT FOOD VENDING SERVICE, YU E 719.41 joint pain, localized in the left shoulder 10/13/2012 HELPURNIMA SALES AGENT FOOD VENDING SERVICE, YU E 704.1 excessive facial or body hair (hirsutism) 10/13/2012 HELLALEXANDER SALES AGENT FOOD VENDING SERVICE, YU E 719.40 ARTHRALGIA 10/13/2012 HELLALEXANDER SALES AGENT FOOD VENDING SERVICE, YU E 719.41 joint pain, localized in the left shoulder 10/13/2012 HELPURNIMA WOLFFN, YU E 704.1 excessive facial or body hair (hirsutism) 10/13/2012 HELLALEXANDER SALES [employer], YU E 719.40 ARTHRALGIA 10/13/2012 HELLALEXANDER SALES [employer], YU E 719.41 joint pain, localized in the left shoulder 10/13/2012 CRUZ DO, JACLYN K 704.1 excessive facial or body hair (hirsutism) 10/13/2012 CRUZ DO, JACLYN K 719.40 ARTHRALGIA 10/13/2012 CRUZ DO, JACLYN K 719.41 joint pain, localized in the left shoulder 10/27/2012 SUGAR DEVRIES MD 724.5 back pain 10/27/2012 SUGAR DEVRIES MD 729.5 pain in the hands 10/27/2012 SUGAR DEVRIES MD 782.1 skin: a rash [as Sx] 10/27/2012 724.5 back pain 10/27/2012 729.5 pain in the hands 10/27/2012 782.1 skin: a rash [as Sx] 10/27/2012 724.5 back pain 10/27/2012 729.5 pain in the hands 10/27/2012 782.1 skin: a rash [as Sx] 10/27/2012 724.5 back pain 10/27/2012 729.5 pain in the hands 10/27/2012 782.1 skin: a rash [as Sx] 10/27/2012 724.5 back pain 10/27/2012 729.5 pain in the hands 10/27/2012 782.1 skin: a rash [as Sx] 10/27/2012 724.5 back pain 10/27/2012 729.5 pain in the hands 10/27/2012 782.1 skin: a rash [as Sx] 10/27/2012 CRUZ DO, JACLYN K 724.5 back pain 10/27/2012 CRUZ DO, JACLYN K 729.5 pain in the hands 10/27/2012 CRUZ DO, JACLYN K 782.1 skin: a rash [as Sx] 10/27/2012 CRUZ DO, JACLYN K 724.5 back pain 10/27/2012 CRUZ DO, JACLYN K 729.5 pain in the hands 10/27/2012 CRUZ DO, JACLYN K 782.1 skin: a rash [as Sx] 10/27/2012 CRUZ DO, JACLYN K 724.5 back pain 10/27/2012 CRUZ DO, JACLYN K 729.5 pain in the hands 10/27/2012 CRUZ DO, JACLYN K 782.1 skin: a rash [as Sx] 10/27/2012 CRUZ DO, JACLYN K 724.5 back pain 10/27/2012 CRUZ DO, JACLYN K 729.5 pain in the hands 10/27/2012 CRUZ DO, JACLYN K 782.1 skin: a rash [as Sx] 10/27/2012 CRUZ DO, JALCYN K 724.5 back pain 10/27/2012 CRUZ DO, JACLYN K 729.5 pain in the hands 10/27/2012 CRUZ DO, JACLYN K 782.1 skin: a rash [as Sx] 10/27/2012 CRUZ DO, JACLYN K 724.5 back pain 10/27/2012 CRUZ DO, JACLYN K 729.5 pain in the hands 10/27/2012 CRUZ DO, JACLYN K 782.1 skin: a rash [as Sx] 10/27/2012 YU WEBSTER APRN E 724.5 back pain 10/27/2012 YU WEBSTER APRN E 729.5 pain in the hands 10/27/2012 YU WEBSTER APRN E 782.1 skin: a rash [as Sx] 10/27/2012 CRUZ DO, JACLYN K 724.5 back pain 10/27/2012 CRUZ DO, JACLYN K 729.5 pain in the hands 10/27/2012 CRUZ DO, JACLYN K 782.1 skin: a rash [as Sx] 10/27/2012 HELLWIG SAL[employer], YU E 724.5 back pain 10/27/2012 HELLWIG SAL[employer], YU E 729.5 pain in the hands 10/27/2012 HELLWIG SALES [employer], YU E 782.1 skin: a rash [as Sx] 10/27/2012 HELLWIG SALES [employer], YU E 724.5 back pain 10/27/2012 HELLWIG SAL[employer], YU E 729.5 pain in the hands 10/27/2012 HELLWIG SALES [employer], YU E 782.1 skin: a rash [as Sx] 10/27/2012 HELLWIG SALES [employer], YU E 724.5 back pain 10/27/2012 HELLWIG SALES [employer], YU E 729.5 pain in the hands 10/27/2012 HELLWIG SALES [employer], YU E 782.1 skin: a rash [as Sx] 10/27/2012 SATISHLWIG SALES [employer], YU E 724.5 back pain 10/27/2012 HELLWIG SALES [employer], YU E 729.5 pain in the hands 10/27/2012 HELLWIG SALES [employer], YU E 782.1 skin: a rash [as Sx] 10/27/2012 ANTHONY DO JACLYN K 724.5 back pain 10/27/2012 ANTHONY DO JACLYN K 729.5 pain in the hands 10/27/2012 CRUZ DO JACLYN K 782.1 skin: a rash [as Sx] 02/02/2013 789.04 abdominal pain in the left lower belly (LLQ) 02/02/2013 789.04 abdominal pain in the left lower belly (LLQ) 02/02/2013 789.04 abdominal pain in the left lower belly (LLQ) 02/02/2013 789.04 abdominal pain in the left lower belly (LLQ) 02/02/2013 ANTHONY DOROBERTA K 789.04 abdominal pain in the left lower belly (LLQ) 02/02/2013 CRUZ DOROBERTA K 789.04 abdominal pain in the left lower belly (LLQ) 02/02/2013 CRUZ DO JACLYN K 789.04 abdominal pain in the left lower belly (LLQ) 02/02/2013 CRUZ DO, JACLYN K 789.04 abdominal pain in the left lower belly (LLQ) 02/02/2013 CRUZ DO, JACLYN K 789.04 abdominal pain in the left lower belly (LLQ) 02/02/2013 CRUZ DO, JACLYN K 789.04 abdominal pain in the left lower belly (LLQ) 02/02/2013 HELLWIG SALES [employer] YU E 789.04 abdominal pain in the left lower belly (LLQ) 02/02/2013 CRUZ DO, JACLYN K 789.04 abdominal pain in the left lower belly (LLQ) 02/02/2013 HELLWIG SALES [employer], YU E 789.04 abdominal pain in the left lower belly (LLQ) 02/02/2013 HELLWIG SALES 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 [employer]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 SERVICE YU E 789.04 abdominal pain in the left lower belly (LLQ) 02/02/2013 DARIN BLEDSOE YU E 789.04 abdominal pain in the left lower belly (LLQ) 02/02/2013 SATISHLWIG SALES AGENT [employer] VENDING SERVICE YU E 789.04 abdominal pain in the left lower belly (LLQ) 02/02/2013 CRUZ DO, JACLYN K 789.04 abdominal pain in the left lower belly (LLQ) 05/01/2013 696.1 OTHER PSORIASIS AND SIMILAR DISORDERS 05/01/2013 696.1 OTHER PSORIASIS AND SIMILAR DISORDERS 05/01/2013 CRUZ DO, JACLYN K 696.1 OTHER PSORIASIS AND SIMILAR DISORDERS 05/01/2013 CRUZ DO, JACLYN K 696.1 OTHER PSORIASIS AND SIMILAR DISORDERS 05/01/2013 CRUZ DO, JACLYN K 696.1 OTHER PSORIASIS AND SIMILAR DISORDERS 05/01/2013 CRUZ DO, JACLYN K 696.1 OTHER PSORIASIS AND SIMILAR DISORDERS 05/01/2013 CRUZ DO, JACLYN K 696.1 OTHER PSORIASIS AND SIMILAR DISORDERS 05/01/2013 CRUZ DO, JACLYN K 696.1 OTHER PSORIASIS AND SIMILAR DISORDERS 05/01/2013 DARIN SALES AGENT [employer]ING SERVICE, YU E 696.1 OTHER PSORIASIS AND SIMILAR DISORDERS 05/01/2013 CRUZ DO, JACLYN K 696.1 OTHER PSORIASIS AND SIMILAR DISORDERS 05/01/2013 SATISHLALEXANDER SALES AGENT FO[employer] VENDING SERVICE, YU E 696.1 OTHER PSORIASIS AND SIMILAR DISORDERS 05/01/2013 HELLWIG SALES AGENT [employer]ING SERVICE, YU E 696.1 OTHER PSORIASIS AND SIMILAR DISORDERS 05/01/2013 HELLWIG SALES AGENT [employer]ING [employer]ICE, YU E 696.1 OTHER PSORIASIS AND SIMILAR DISORDERS 05/01/2013 HELLWIG SALES AGENT [employer]ING [employer]ICE, YU E 696.1 OTHER PSORIASIS AND SIMILAR DISORDERS 05/01/2013 CRUZ DO, JACLYN K 696.1 OTHER PSORIASIS AND SIMILAR DISORDERS 05/17/2013 701.1 KERATODERMA ACQUIRED 05/17/2013 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 05/17/2013 CRUZ DO, JACLYN K 701.1 KERATODERMA ACQUIRED 05/17/2013 CRUZ DO, JACLYN K 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 05/17/2013 CRUZ DO, JACLYN K 701.1 KERATODERMA ACQUIRED 05/17/2013 CRUZ DO, JACLYN K 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 05/17/2013 CRUZ DO, JACLYN K 701.1 KERATODERMA ACQUIRED 05/17/2013 CRUZ DO, JACLYN K 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 05/17/2013 CRUZ DO, JACLYN K 701.1 KERATODERMA ACQUIRED 05/17/2013 CRUZ DO, JACLYN K 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 05/17/2013 RCUZ DO, JACLYN K 701.1 KERATODERMA ACQUIRED 05/17/2013 CRUZ DO, JACLYN K 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 05/17/2013 CRUZ DO, JACLYN K 701.1 KERATODERMA ACQUIRED 05/17/2013 CRUZ DO, JACLYN K 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 05/17/2013 HELLWIG SALES [employer], YU E 701.1 KERATODERMA ACQUIRED 05/17/2013 HELWIG SALES AGENT [employer]ING [employer]ICE, YU E 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 05/17/2013 CRUZ DO, JACLYN K 701.1 KERATODERMA ACQUIRED 05/17/2013 CRUZ DO, JACLYN K 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 05/17/2013 HELLWIG SALES AGENT [employer]ING [employer]ICE, YU E 701.1 KERATODERMA ACQUIRED 05/17/2013 HELWIG SALES AGENT [employer]ING [employer]ICE, YU E 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 05/17/2013 HELLWIG SALES AGENT [employer]ING [employer]ICE, YU E 701.1 KERATODERMA ACQUIRED 05/17/2013 HELLWIG SALES AGENT [employer]ING [employer]ICE, YU E 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 05/17/2013 HELLWIG SALES AGENT [employer]ING [employer]ICE, YU E 701.1 KERATODERMA ACQUIRED 05/17/2013 HELLWIG SALES AGENT [employer]ING [employer]ICE, YU E 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 05/17/2013 HELLWIG SALES AGENT [employer]ING [employer]ICE, YU E 701.1 KERATODERMA ACQUIRED 05/17/2013 HELLWIG SALES AGENT [employer]ING [employer]ICE, YU E 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 05/17/2013 CRUZ DO, JACLYN K 701.1 KERATODERMA ACQUIRED 05/17/2013 CRUZ DO, JACLYN K 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 05/23/2013 CRUZ DO, JACLYN K 477.0 ALLERGIC RHINITIS DUE TO POLLEN 05/23/2013 CRUZ DO, JACLYN K V04.81 FLU DX (3 YRS AND ABOVE, IM) 05/23/2013 CRUZ DO, JACLYN K 477.0 ALLERGIC RHINITIS DUE TO POLLEN 05/23/2013 CRUZ DO, JACLYN K V04.81 FLU DX (3 YRS AND ABOVE, IM) 05/23/2013 CRUZ DO, JACLYN K 477.0 ALLERGIC RHINITIS DUE TO POLLEN 05/23/2013 CRUZ DO, JACLYN K V04.81 FLU DX (3 YRS AND ABOVE, IM) 05/23/2013 CRUZ DO, JACLYN K 477.0 ALLERGIC RHINITIS DUE TO POLLEN 05/23/2013 CRUZ DO, JACLYN K V04.81 FLU DX (3 YRS AND ABOVE, IM) 05/23/2013 CRUZ DO, JACLYN K 477.0 ALLERGIC RHINITIS DUE TO POLLEN 05/23/2013 CRUZ DO, JACLYN K V04.81 FLU DX (3 YRS AND ABOVE, IM) 05/23/2013 CRUZ DO, JACLYN K 477.0 ALLERGIC RHINITIS DUE TO POLLEN 05/23/2013 CRUZ DO, JACLYN K V04.81 FLU DX (3 YRS AND ABOVE, IM) 05/23/2013 SATISHLWIG SALES AGENT [employer]ENDING SERVICE, YU E 477.0 ALLERGIC RHINITIS DUE TO POLLEN 05/23/2013 HELLeodanWIG SALES AGENT [employer] VENDING SERVICE, YU E V04.81 FLU DX (3 YRS AND ABOVE, IM) 05/23/2013 CRUZ DO, JACLYN K 477.0 ALLERGIC RHINITIS DUE TO POLLEN 05/23/2013 CRUZ DO, JACLYN K V04.81 FLU DX (3 YRS AND ABOVE, IM) 05/23/2013 HELLWIG SALES AGENT [employer]ING SERVICE, YU E 477.0 ALLERGIC RHINITIS DUE TO POLLEN 05/23/2013 HELLWIG SALES AGENT [employer]ING SERVICE, YU E V04.81 FLU DX (3 YRS AND ABOVE, IM) 05/23/2013 HELLWIG SALES AGENT [employer]ING SERVICE, YU E 477.0 ALLERGIC RHINITIS DUE TO POLLEN 05/23/2013 HELLWIG SALES AGENT [employer]ING SERVICE, YU E V04.81 FLU DX (3 YRS AND ABOVE, IM) 05/23/2013 HELLWIG SALES AGENT [employer]ING SERVICE, YU E 477.0 ALLERGIC RHINITIS DUE TO POLLEN 05/23/2013 HELLWIG SALES AGENT [employer]ING SERVICE, YU E V04.81 FLU DX (3 YRS AND ABOVE, IM) 05/23/2013 HELLWIG SALES AGENT [employer]ING SERVICE, YU E 477.0 ALLERGIC RHINITIS DUE TO POLLEN 05/23/2013 HELLWIG SALES AGENT [employer]ENDING SERVICE, YU E V04.81 FLU DX (3 YRS AND ABOVE, IM) 05/23/2013 CRUZ DO, JACLYN K 477.0 ALLERGIC RHINITIS DUE TO POLLEN 05/23/2013 CRUZ DO, JACLYN K V04.81 FLU DX (3 YRS AND ABOVE, IM) 06/07/2013 CRUZ DO, JACLYN K 466.0 ACUTE BRONCHITIS 06/07/2013 CRUZ DO, JACLYN K 466.0 ACUTE BRONCHITIS 06/07/2013 CRUZ DO, JACLYN K 466.0 ACUTE BRONCHITIS 06/07/2013 CRUZ DO, JACLYN K 466.0 ACUTE BRONCHITIS 06/07/2013 CRUZ DO, JACLYN K 466.0 ACUTE BRONCHITIS 06/07/2013 HELLWIG SALES [employer], YU E 466.0 ACUTE BRONCHITIS 06/07/2013 CRUZ DO, JACLYN K 466.0 ACUTE BRONCHITIS 06/07/2013 HELLWIG SALES AGENT [employer]ICE, YU E 466.0 ACUTE BRONCHITIS 06/07/2013 HELLWIG SALES AGENT [employer]ING [employer]ICE, YU E 466.0 ACUTE BRONCHITIS 06/07/2013 HELLWIG SALES AGENT [employer]ING SERVICE, YU E 466.0 ACUTE BRONCHITIS 06/07/2013 HELLWIG SALES AGENT [employer]ING [employer]ICE, YU E 466.0 ACUTE BRONCHITIS 06/07/2013 CRUZ DO, JACLYN K 466.0 ACUTE BRONCHITIS 07/20/2013 CRUZ DO, JACLYN K 386.11 BENIGN PAROXYSMAL POSITIONAL VERTIGO 07/20/2013 CRUZ DO, JACLYN K 386.11 BENIGN PAROXYSMAL POSITIONAL VERTIGO 07/20/2013 HELLWIG SALES AG[employer], YU E 386.11 BENIGN PAROXYSMAL POSITIONAL VERTIGO 07/20/2013 CRUZ DO, JACLYN K 386.11 BENIGN PAROXYSMAL POSITIONAL VERTIGO 07/20/2013 HELLWIG SALES AGENT [employer]ICE, YU E 386.11 BENIGN PAROXYSMAL POSITIONAL VERTIGO 07/20/2013 HELLWIG SALES AGENT [employer]ING [employer]ICE, YU E 386.11 BENIGN PAROXYSMAL POSITIONAL VERTIGO 07/20/2013 HELLWIG SALES AGENT [employer]ING SERVICE, YU E 386.11 BENIGN PAROXYSMAL POSITIONAL VERTIGO 07/20/2013 HELLWIG SALES AGENT [employer]ING SERVICE, YU E 386.11 BENIGN PAROXYSMAL POSITIONAL VERTIGO 07/20/2013 CRUZ DO, JACLYN K 386.11 BENIGN PAROXYSMAL POSITIONAL VERTIGO 08/11/2013 HELLWIG SALES AG[employer]ICE, YU E 461.0 ACUTE MAXILLARY SINUSITIS 08/11/2013 CRZU , JACLYN K 461.0 ACUTE MAXILLARY SINUSITIS 08/11/2013 HELLWIG SALES AGENT [employer]ING [employer]ICE, YU E 461.0 ACUTE MAXILLARY SINUSITIS 08/11/2013 HELLWIG SALES AGENT [employer]ENDING SERVICE, YU E 461.0 ACUTE MAXILLARY SINUSITIS 08/11/2013 HELLWIG SALES AGENT [employer]ENDING SERVICE, YU E 461.0 ACUTE MAXILLARY SINUSITIS 08/11/2013 HELLWIG SALES AGENT [employer]ING SERVICE, YU E 461.0 ACUTE MAXILLARY SINUSITIS 08/11/2013 ANTHONY DE LA TORRE, JACLYN K 461.0 ACUTE MAXILLARY SINUSITIS 12/06/2013 CRUZ DO, JACLYN K 724.3 SCIATICA 12/06/2013 HELLWIG SALES AGENT [employer]ING [employer]ICE, YU E 724.3 SCIATICA 12/06/2013 HELLWIG SALES AGENT [employer]ENDING SERVICE, YU E 724.3 SCIATICA 12/06/2013 HELLWIG SALES AGENT [employer]ENDING SERVICE, YU E 724.3 SCIATICA 12/06/2013 HELLWIG SALES AGENT [employer]ING SERVICE, YU E 724.3 SCIATICA 12/06/2013 CRUZ DO, JACLYN K 724.3 SCIATICA 05/25/2014 HELLWIG SALES AG[employer]ICE, YU E 564.00 UNSPECIFIED CONSTIPATION 05/25/2014 ROBERT WEBSTER APRNSIE E 722.6 DEGENERATION OF INTERVERTEBRAL DISC SITE UNSPECIFIED 05/25/2014 ROBERT WEBSTER APRNSIE E 780.93 MEMORY LOSS 05/25/2014 ROBERT WEBSTER APRNSIE E 787.20 DYSPHAGIA UNSPECIFIED 05/25/2014 ROBERT WEBSTER APRNSIE E V12.72 PERSONAL HISTORY OF COLONIC POLYPS 05/25/2014 ROBERT WEBSTER APRNSIE E 564.00 UNSPECIFIED CONSTIPATION 05/25/2014 ROBERT WEBSTER APRNSIE E 722.6 DEGENERATION OF INTERVERTEBRAL DISC SITE UNSPECIFIED 05/25/2014 ROBERT WEBSTER APRNSIE E 780.93 MEMORY LOSS 05/25/2014 ROBERT WEBSTER APRNSIE E 787.20 DYSPHAGIA UNSPECIFIED 05/25/2014 ROBERT WEBSTER APRNSIE E V12.72 PERSONAL HISTORY OF COLONIC POLYPS 05/25/2014 MAGALI WEBSTER APRNE E 564.00 UNSPECIFIED CONSTIPATION 05/25/2014 MAGALI WEBSTER APRNE E 722.6 DEGENERATION OF INTERVERTEBRAL DISC SITE UNSPECIFIED 05/25/2014 ROBERT WEBSTER APRNSIE E 780.93 MEMORY LOSS 05/25/2014 ROBERT WEBSTER APRNSIE E 787.20 DYSPHAGIA UNSPECIFIED 05/25/2014 ROBERT WEBSTER APRNSIE E V12.72 PERSONAL HISTORY OF COLONIC POLYPS 05/25/2014 CRUZ DO, JACLYN K 564.00 UNSPECIFIED CONSTIPATION 05/25/2014 CRUZ DO, JACLYN K 722.6 DEGENERATION OF INTERVERTEBRAL DISC SITE UNSPECIFIED 05/25/2014 CRUZ DO, JACLYN K 780.93 MEMORY LOSS 05/25/2014 CRUZ DO, JACLYN K 787.20 DYSPHAGIA UNSPECIFIED 05/25/2014 CRUZ DO, JACLYN K V12.72 PERSONAL HISTORY OF COLONIC POLYPS 08/06/2014 YU WEBSTER APRN E 455.0 INTERNAL HEMORRHOIDS WITHOUT COMPLICATION 08/06/2014 YU WEBSTER APRN E 455.5 EXTERNAL HEMORRHOIDS WITH OTHER COMPLICATION 08/06/2014 MAGALI WEBSTER APRNE E 562.10 DIVERTICULOSIS OF COLON (WITHOUT HEMORRHAGE) 08/06/2014 HELLWIG SALES AGENT [employer]ICE, YU E 455.0 INTERNAL HEMORRHOIDS WITHOUT COMPLICATION 08/06/2014 YU WEBSTER APRN E 455.5 EXTERNAL HEMORRHOIDS WITH OTHER COMPLICATION 08/06/2014 YU WEBSTER APRN E 562.10 DIVERTICULOSIS OF COLON (WITHOUT HEMORRHAGE) 08/06/2014 JACLYN CRUZ DO K 455.0 INTERNAL HEMORRHOIDS WITHOUT COMPLICATION 08/06/2014 JACLYN CRUZ DO K 455.5 EXTERNAL HEMORRHOIDS WITH OTHER COMPLICATION 08/06/2014 JACLYN CRUZ DO K 562.10 DIVERTICULOSIS OF COLON (WITHOUT HEMORRHAGE) 09/26/2014 JAYCOB BENAVIDEZ, SUGAR Alcocer Ot 729.5 09/26/2014 SUGAR DEVRIES MD Ot 780.79 09/26/2014 SUGAR DEVRIES MD Ot 715.94 09/26/2014 SUGAR DEVRIES MD Ot 722.4 09/26/2014 SUGAR DERVIES MD Ot 722.51 09/26/2014 SUGAR DEVRIES MD Ot 722.52 09/26/2014 YU WEBSTER APRN Ot V76.12 09/26/2014 YU WEBSTER APRN Ot 722.52 09/28/2014 ALLY ALMEIDA MD Ot 278.00 OBESITY, NOS 09/28/2014 ALLY ALMEIDA MD Ot 721.3 LUMBOSACRAL SPONDYLOSIS 09/28/2014 ALLY ALMEIDA MD Ot 722.52 LUMB/LUMBOSAC DISC DEGEN 09/28/2014 ALLY ALMEIDA MD Ot V58.69 OTH MED,LT,CURRENT USE 09/28/2014 ALLY ALMEIDA MD Ot V85.35 BODY MASS INDEX 35.0-35.9, ADULT 10/10/2014 YU WEBSTER APRN E 530.81 ESOPHAGEAL REFLUX 10/10/2014 MAGALI WEBSTER APRNE E 702.0 ACTINIC KERATOSIS 10/10/2014 JACLYN CRUZ DO K 530.81 ESOPHAGEAL REFLUX 10/10/2014 JACLYN CRUZ DO K 702.0 ACTINIC KERATOSIS 11/05/2014 Ot 721.3 LUMBOSACRAL SPONDYLOSIS 11/05/2014 Ot 722.52 LUMB/ LUMBOSAC DISC DEGEN 11/05/2014 Ot V58.69 OTH MED,LT, CURRENT USE 12/28/2014 JACLYN CRUZ DO K 381.81 DYSFUNCTION OF EUSTACHIAN TUBE 12/28/2014 JACLYN CRUZ DO K 727.1 BUNION 12/28/2014 JACLYN CRUZ DO V76.19 OTHER SCREENING BREAST EXAMINATION 02/01/2015 YU WEBSTER SALES AGENT [employer]ING SERVICE Ot V76.12 02/25/2015 YU WEBSTER SALES AGENT [employer]ENDING SERVICE Ot V76.12 05/13/2015 SUGAR DEVRIES MD Ot 729.5 05/13/2015 SUGAR DEVRIES MD Ot 780.79 05/13/2015 SUGAR DEVRIES MD Ot 715.94 05/13/2015 SUGAR DEVRIES MD Ot 722.4 05/13/2015 SUGAR DEVRIES MD Ot 722.51 05/13/2015 SUGAR DEVRIES MD Ot 722.52 05/13/2015 YU WEBSTER SALES AGENT [employer]ING SERVICE Ot V76.12 05/13/2015 YU WEBSTER SALES AGENT [employer] VENDING SERVICE Ot 722.52 05/13/2015 YU WEBSTER SALES AGENT [employer]ING SERVICE Ot V76.12 06/05/2015 ALLY ALMEIDA MD Ot 722.52 06/05/2015 ALLY ALMEIDA MD Ot 724.6 06/27/2015 YU WEBSTER SALES AGENT [employer]ING SERVICE Ot V76.12 06/27/2015 ALLY ALMEIDA MD Ot 722.52 06/27/2015 ALLY ALMEIDA MD Ot 724.6 06/27/2015 ALLY ALMEIDA MD Ot 722.52 06/27/2015 ALLY ALMEIDA MD Ot 724.6 07/22/2015 KIM ZAMORANO SALES AGENT [employer]ENDING SERVICE Ot F17.211 07/22/2015 KIM ZAMORANO SALES AGENT [employer]ENDING SERVICE Ot M41.26 07/22/2015 KIM ZAMORANO SALES AGENT [employer] VENDING SERVICE Ot M47.897 07/22/2015 KIM ZAMORANO SALES AGENT [employer] VENDING SERVICE Ot M54.16 07/22/2015 KIM ZAMORANO SALES AGENT [employer] VENDING SERVICE Ot N39.0 07/23/2015 SUGAR DEVRIES MD Ot 729.5 07/23/2015 SUGAR DEVRIES MD Ot 780.79 07/23/2015 SUGAR DEVRIES MD Ot 715.94 07/23/2015 JAYCOB BENAVIDEZ, SUGAR Alcocer Ot 722.4 07/23/2015 JAYCOB BENAVIDEZ, SUGAR Alcocer Ot 722.51 07/23/2015 JAYCOB BENAVIDEZ, SUGAR Alcocer Ot 722.52 07/23/2015 YU WEBSTER SALES AGENT [employer]ING SERVICE Ot V76.12 07/23/2015 HELLYU MUNOZ SALES AGENT FO[employer] VENDING SERVICE Ot 722.52 07/23/2015 HELLeodanROBERT MUNOZSIE E SALES AGENT [employer] VENDING SERVICE Ot V76.12 07/23/2015 ALLY ALMEIDA MD Ot 722.52 07/23/2015 ALLY ALMEIDA MD Ot 724.6 07/24/2015 SUSAN POLLOCK MD Ot E03.9 HYPOTHYROIDISM, UNSPECIFIED 07/24/2015 SUSAN POLLOCK MD, Ot E66.9 OBESITY, UNSPECIFIED 07/24/2015 SUSAN POLLOCK MD, Ot E78.5 HYPERLIPIDEMIA, UNSPECIFIED 07/24/2015 SUSAN POLLOCK MD Ot I10 ESSENTIAL (PRIMARY) HYPERTENSION 07/24/2015 SUSAN POLLOCK MD, Ot I25.10 ATHSCL HEART DISEASE OF [place] CORONARY 07/24/2015 SUSAN POLLOCK MD Ot K21.9 GASTRO-ESOPHAGEAL REFLUX DISEASE WITHOUT 07/24/2015 SUSAN POLLOCK MD, Ot K44.9 DIAPHRAGMATIC HERNIA WITHOUT OBSTRUCTION 07/24/2015 SUSAN POLLOCK MD, Ot N39.0 URINARY TRACT INFECTION, SITE NOT SPECIF 07/24/2015 SUSAN POLLOCK MD Ot R07.89 OTHER CHEST PAIN 07/24/2015 SUSAN POLLOCK MD Ot Z68.35 BODY MASS INDEX (BMI) 35.0-35.9, ADULT 07/24/2015 SUSAN POLLOCK MD, Ot Z79.899 OTHER REPORT ANALYST (CURRENT) DRUG THERAPY 07/24/2015 SUSAN POLLOCK MD, Ot Z87.891 PERSONAL HISTORY OF NICOTINE DEPENDENCE 07/26/2015 LALY ALMEIDA MD Ot E66.9 OBESITY, UNSPECIFIED 07/26/2015 ALLY ALMEIDA MD Ot M47.816 SPONDYLOSIS W/O MYELOPATHY OR RADICULOPA 07/26/2015 ALLY ALMEIDA MD Ot M51.16 INTERVERTEBRAL DISC DISORDERS W RADICULO 07/26/2015 ALLY ALMEIDA MD, Ot M79.1 MYALGIA 07/26/2015 ALLY ALMEIDA MD, Ot Z68.34 BODY MASS INDEX (BMI) 34.0-34.9, ADULT 07/26/2015 ALLY ALMEIDA MD, Ot Z79.899 OTHER SNF (CURRENT) DRUG THERAPY 08/07/2015 ALLY ALMEIDA MD Ot 722.52 08/07/2015 ALLY ALMEIDA MD Ot 724.6 08/07/2015 YU WEBSTER APRN Ot V76.12 08/07/2015 ALLY ALMEIDA MD, Ot 722.52 08/07/2015 ALLY ALMEIDA MD, Ot 724.6 10/18/2015 YU WEBSTER APRN Ot V76.12 10/18/2015 ALLY ALMEIDA MD Ot 722.52 10/18/2015 ALLY ALMEIDA MD Ot 724.6 10/18/2015 ALLY ALMEIDA MD, Ot M47.816 SPONDYLOSIS W/O MYELOPATHY OR RADICULOPA 10/18/2015 ALLY ALMEIDA MD, Ot M51.16 INTERVERTEBRAL DISC DISORDERS W RADICULO 10/18/2015 ALLY ALMEIDA MD, Ot M53.3 SACROCOCCYGEAL DISORDERS, NOT ELSEWHERE 10/18/2015 ALLY ALMEIDA MD, Ot Z79.899 OTHER REPORT ANALYST (CURRENT) DRUG THERAPY 12/27/2015 ALLY ALMEIDA MD, Ot M47.816 SPONDYLOSIS W/O MYELOPATHY OR RADICULOPA 12/27/2015 ALLY ALMEIDA MD, Ot M51.16 INTERVERTEBRAL DISC DISORDERS W RADICULO 12/27/2015 ALLY ALMEIDA MD, Ot M53.3 SACROCOCCYGEAL DISORDERS, NOT ELSEWHERE 12/27/2015 ALLY ALMEIDA MD, Ot Z79.899 OTHER REPORT ANALYST (CURRENT) DRUG THERAPY 01/08/2016 ALLY ALMEIDA MD, Ot M47.816 SPONDYLOSIS W/O MYELOPATHY OR RADICULOPA 01/08/2016 ALLY ALMEIDA MD, Ot M51.16 INTERVERTEBRAL DISC DISORDERS W RADICULO 01/08/2016 ALLY ALMEIDA MD, Ot M53.3 SACROCOCCYGEAL DISORDERS, NOT ELSEWHERE 01/08/2016 ALLY ALMEIDA MD, Ot Z79.899 OTHER REPORT ANALYST (CURRENT) DRUG THERAPY 01/08/2016 ALLY ALMEIDA MD Ot M47.816 SPONDYLOSIS W/O MYELOPATHY OR RADICULOPA 01/08/2016 ALLY ALMEIDA MD Ot M51.16 INTERVERTEBRAL DISC DISORDERS W RADICULO 01/08/2016 ALLY ALMEIDA MD Ot M53.3 SACROCOCCYGEAL DISORDERS, NOT ELSEWHERE 01/08/2016 ALLY ALMEIDA MD Ot Z79.899 OTHER SNF (CURRENT) DRUG THERAPY 02/14/2016 ALLY ALMEIDA MD Ot M47.816 SPONDYLOSIS W/O MYELOPATHY OR RADICULOPA 02/14/2016 ALLY ALMEIDA MD Ot M51.16 INTERVERTEBRAL DISC DISORDERS W RADICULO 02/14/2016 ALLY ALMEIDA MD Ot M53.3 SACROCOCCYGEAL DISORDERS, NOT ELSEWHERE 02/14/2016 ALLY ALMEIDA MD Ot Z79.899 OTHER SNF (CURRENT) DRUG THERAPY 02/18/2016 CE ORELLANA MD Ot M54.16 RADICULOPATHY, LUMBAR REGION 02/19/2016 CE ORELLANA MD Ot M54.16 RADICULOPATHY, LUMBAR REGION 02/20/2016 ALLY ALMEIDA MD Ot M54.5 LOW BACK PAIN 02/22/2016 UMAIR ACOSTA MD Ot G89.29 OTHER CHRONIC PAIN 02/22/2016 UMAIR ACOSTA MD Ot K59.00 CONSTIPATION, UNSPECIFIED 02/22/2016 UMAIR ACOSTA MD Ot M48.06 SPINAL STENOSIS, LUMBAR REGION 02/22/2016 UMAIR ACOSTA MD Ot M54.16 RADICULOPATHY, LUMBAR REGION 02/22/2016 UMAIR ACOSTA MD Ot Z79.891 SNF (CURRENT) USE OF OPIATE ANALGE 02/24/2016 ALLY ALMEIDA MD Ot M54.5 LOW BACK PAIN 02/24/2016 UMAIR ACOSTA MD Ot G89.29 OTHER CHRONIC PAIN 02/24/2016 UMAIR ACOSTA MD Ot K59.00 CONSTIPATION, UNSPECIFIED 02/24/2016 UMAIR ACOSTA MD Ot M48.06 SPINAL STENOSIS, LUMBAR REGION 02/24/2016 DAVE BENAVIDEZ, UMAIR Roe Ot M54.16 RADICULOPATHY, LUMBAR REGION 02/24/2016 DAVE BENAVIDEZ, UMAIR Roe Ot Z79.891 SNF (CURRENT) USE OF OPIATE ANALGE 02/26/2016 JUAN PABLO BENAVIDEZ, ALLY Galvez Ot M54.5 LOW BACK PAIN 03/18/2016 ALLY ALMEIDA MD Ot M54.5 LOW BACK PAIN 03/26/2016 ALLY ALMEIDA MD Ot M54.5 LOW BACK PAIN 03/26/2016 ALLY ALMEIDA MD Ot M54.5 LOW BACK PAIN 04/23/2016 CARDENAS, JULIANO R CFNP Ot R30.0 DYSURIA 04/23/2016 CARDENAS, JULIANO R CFNP Ot R31.9 HEMATURIA, UNSPECIFIED 04/24/2016 CARDENAS, JULIANO R CFNP Ot R30.0 DYSURIA 04/24/2016 CARDENAS, JULIANO R CFNP Ot R31.9 HEMATURIA, UNSPECIFIED 05/13/2016 CARDENAS, JULIANO R CFNP Ot R30.0 DYSURIA 05/13/2016 CARDENAS, JULIANO R CFNP Ot R31.9 HEMATURIA, UNSPECIFIED 05/22/2016 CARDENAS, JULIANO R CFNP Ot R30.0 DYSURIA 05/22/2016 CARDENAS, JULIANO R CFNP Ot R31.9 HEMATURIA, UNSPECIFIED 10/08/2016 JUAN PABLO BENAVIDEZ, ALLY Galvez Ot M54.5 LOW BACK PAIN 10/08/2016 CARDENAS, JULIANO R CFNP Ot R30.0 DYSURIA 10/08/2016 CARDENAS, JULIANO R CFNP Ot R31.9 HEMATURIA, UNSPECIFIED 10/12/2016 ESTHER FAITH HEARINGS REPORTER Ot Z12.31 ENCNTR SCREEN MAMMOGRAM FOR MALIGNANT NE 10/12/2016 ESTHER FAITH HEARINGS REPORTER Ot Z12.31 ENCNTR SCREEN MAMMOGRAM FOR MALIGNANT NE 10/16/2016 ESTHER FAITH HEARINGS REPORTER Ot R92.8 OTH ABN AND INCONCLUSIVE FINDINGS ON DX 10/16/2016 ESTHER FAITH HEARINGS REPORTER Ot R92.8 OTH ABN AND INCONCLUSIVE FINDINGS ON DX 10/19/2016 CATHERINE-CASHERO, ESTHER N HEARINGS REPORTER Ot R92.8 OTH ABN AND INCONCLUSIVE FINDINGS ON DX 11/03/2016 ESTHER FAITH HEARINGS REPORTER Ot Z12.31 ENCNTR SCREEN MAMMOGRAM FOR MALIGNANT NE 11/06/2016 ESTHER FAITH HEARINGS REPORTER Ot Z12.31 ENCNTR SCREEN MAMMOGRAM FOR MALIGNANT NE 12/14/2016 ESTHER FAITH Maninder HEARINGS REPORTER Ot R92.8 OTH ABN AND INCONCLUSIVE FINDINGS ON DX 12/18/2016 ESTHER FAITH HEARINGS REPORTER Ot R92.8 OTH ABN AND INCONCLUSIVE FINDINGS ON DX 11/11/2017 DEGRAFFENREID-THORPE, ROOPA L Ot R92.8 OTH ABN AND INCONCLUSIVE FINDINGS ON DX 11/16/2017 DEGRAFFENREID-THORPE, ROOPA L Ot R92.8 OTH ABN AND INCONCLUSIVE FINDINGS ON DX 12/02/2017 DEGRAFFENREID-THORPE, ROOPA L Ot R92.8 OTH ABN AND INCONCLUSIVE FINDINGS ON DX 03/02/2018 DEGRAFFENREID-THORPE, ROOPA L Ot R92.8 OTH ABN AND INCONCLUSIVE FINDINGS ON DX 03/02/2018 JAYCOB BENAVIDEZ, SUGAR L Ot 729.5 PAIN IN LIMB 03/02/2018 JAYCOB BENAVIDEZ, SUGAR L Ot 780.79 OTH MALAISE FATIGUE 03/02/2018 JAYCOB BENAVIDEZ, SUGAR L Ot 715.94 OSTEOARTHROS NOS-HAND 03/02/2018 JAYCOB BENAVIDEZ, SUGAR L Ot 722.4 CERVICAL DISC DEGEN 03/02/2018 JAYCOB BENAVIDEZ, SUGAR L Ot 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 03/02/2018 JAYCOB BENAVIDEZ, SUGAR L Ot 722.52 LUMB/LUMBOSAC DISC DEGEN 03/02/2018 YU WEBSTER E SALES AGENT [employer] VENDING SERVICE Ot V76.12 OTH SCREEN MAMMO-MALIGN NEOPLASM OF DMITRY 03/02/2018 YU WEBSTER E SALES AGENT [employer] VENDING SERVICE Ot 722.52 LUMB/LUMBOSAC DISC DEGEN 03/02/2018 YU WEBSTER E SALES AGENT FOOD VENDING SERVICE Ot V76.12 OTH SCREEN MAMMO-MALIGN NEOPLASM OF DMITRY 03/02/2018 DEGRAFFENREID-THORPE, ROOPA L Ot R92.8 OTH ABN AND INCONCLUSIVE FINDINGS ON DX 03/08/2018 DEGRAFFENREID-ROOPA THORPE Ot R92.8 OTH ABN AND INCONCLUSIVE FINDINGS ON DX 06/02/2018 Ot R92.1 MAMMOGRAPHIC CALCIFCN FOUND ON DIAGNOSTI 06/10/2018 Ot R92.1 MAMMOGRAPHIC CALCIFCN FOUND ON DIAGNOSTI 07/21/2018 KEISHA SHETH DO Ot Z01.818 ENCOUNTER FOR OTHER PREPROCEDURAL EXAMIN Procedures Code Description [place] [address] ROUTINE VENIPUNCTURE 10/13/2012 39049 TESTOSTERONE-WOMEN & CHILDREN 10/13/2012 20591 CCP ANTIBODY 10/13/2012 ANAANA DEVANTE ANALYZER (SCREEN) 10/13/2012 91506 CBC 10/14/2012 74159 URIC ACID 10/15/2012 76092 CRP 10/15/2012 89554 PROLACTIN 10/15/2012 78248 FSH 10/15/2012 28166 LH 10/15/2012 81688 TSH 10/15/2012 79646 RA FACTOR 10/15/2012 89900 ROUTINE VENIPUNCTURE 02/02/2013 12637 UA LONG DIP 02/02/2013 98086 XRAY CERVICAL SPINE, 2 OR 3 VIEWS 02/02/2013 05632 XRAY THORACIC SPINE 3 VIEWS 02/02/2013 41893 XRAY LUMBAR SPINE MIN 4 VIEWS 02/02/2013 70953 XRAY HAND CEE 2 VIEWS 02/02/2013 06250 MRI EXTREMITY JOINT, UPPER LEFT, W/O CONTRAST 02/02/2013 20408 CBC 02/02/2013 85395 CMP 02/02/2013 6234181 GFR CALC (RESULT ONLY) 02/02/2013 24575 CRP 02/02/2013 06462 CULTURE URINE 02/04/2013 29656 SKIN TAG REM 1-15 05/17/2013 61499 LESION DESTRUCTION 1-14 ( BENIGN) 05/17/2013 12193 MAMMOGRAM, SCREENING 05/26/2013 40764 UA LONG DIP 07/10/2013 ORTHOPEDI ANALY RIGGINS 07/10/2013 56046 LIPID PANEL 08/11/2013 41673 TSH 08/11/2013 95152 MRI SPINE (LUMBAR) W/O CONTRAST 12/06/2013 77749 DEXA BONE DENSITY, AXIAL 05/25/2014 GASTROENT CLARISSE ALEJANDRA 05/25/2014 NEUROLOGUMAIR MOREIRA 05/25/2014 NEUROLOGY Aníbal 05/25/2014 Neurologi Umair Grace 06/15/2014 86270 ROUTINE VENIPUNCTURE 08/06/2014 81890 CMP 08/06/2014 53704 LIPID PANEL 08/06/2014 67619 TSH 08/06/2014 53884 CBC 08/06/2014 GENERAL S TREYJOSSE 08/06/2014 ORTHOPEDI RUPAL BRONSON 08/06/2014 97558 MAMMOGRAM, SCREENING 12/28/2014 PODIATRY SUSNA RICH 12/28/2014 Results Test Result Range INTERPRETATION - 06/28/17 13:13 INTERPRETATION NRG FOLATE (FOLIC ACID) - 06/28/17 13:13 FOLATE, SERUM >24.0 ng/mL NRG CBC - 07/04/18 10:00 WHITE BLOOD CELL COUNT 7.0 Thousand/uL 3.8-10.8 RED BLOOD CELL COUNT 5.43 Million/uL 3.80-5.10 HEMOGLOBIN 15.8 g/dL 11.7-15.5 HEMATOCRIT 46.9 % 35.0-45.0 MCV 86.4 fL 80.0-100.0 MCH 29.1 pg 27.0-33.0 MCHC 33.7 g/dL 32.0-36.0 RDW 13.6 % 11.0-15.0 PLATELET COUNT 269 Thousand/uL 140-400 MPV 9.5 fL 7.5-12.5 ABSOLUTE NEUTROPHILS 4375 cells/uL 9226-0259 ABSOLUTE LYMPHOCYTES 2093 cells/uL 850-3900 ABSOLUTE MONOCYTES 378 cells/uL 200-950 ABSOLUTE EOSINOPHILS 91 cells/uL 15-500 ABSOLUTE BASOPHILS 63 cells/uL 0-200 NEUTROPHILS 62.5 % NRG LYMPHOCYTES 29.9 % NRG MONOCYTES 5.4 % NRG EOSINOPHILS 1.3 % NRG BASOPHILS 0.9 % NRG TSH - 07/04/18 10:00 TSH 0.20 mIU/L 0.40-4.50 Encounters ACCT No. Visit Date/Time Discharge Status Pt. Type Provider Facility Loc./Unit Complaint [id number] 12/28/2014 09:59:00 12/28/2014 23:59:59 CLS Outpatient JACLYN CRUZ DO [id number] 10/10/2014 11:03:00 10/10/2014 23:59:59 CLS Outpatient YU WEBSTER APRN [id number] 08/06/2014 10:50:00 08/06/2014 23:59:59 CLS Outpatient YU WEBSTER APRN [id number] 05/25/2014 10:07:00 05/25/2014 23:59:59 CLS Outpatient YU WEBSTER APRN [id number] 12/20/2013 13:50:00 12/20/2013 23:59:59 CLS Outpatient YU WEBSTER APRN [id number] 12/06/2013 10:56:00 12/06/2013 23:59:59 CLS Outpatient CRUZ DOJACLYN [id number] 08/11/2013 10:39:00 08/11/2013 23:59:59 CLS Outpatient YU WEBSTER APRN [id number] 07/20/2013 09:28:00 07/20/2013 23:59:59 CLS Outpatient CRUZ DOJACLYN [id number] 07/10/2013 13:44:00 07/10/2013 23:59:59 CLS Outpatient CRUZ DOJACLYN [id number] 07/10/2013 13:44:00 07/10/2013 23:59:59 CLS Outpatient CRUZ DOJACLYN [id number] 06/07/2013 11:00:00 06/07/2013 23:59:59 CLS Outpatient CRUZ DOJACLYN [id number] 05/23/2013 09:26:00 05/23/2013 23:59:59 CLS Outpatient CRUZ DOJACLYN [id number] 05/23/2013 09:26:00 05/23/2013 23:59:59 CLS Outpatient CRUZ DOJACLYN [id number] 10/27/2012 14:01:00 10/27/2012 23:59:59 CLS Outpatient SUGAR DEVRIES MD [id number] 10/13/2012 15:17:00 10/13/2012 23:59:59 CLS Outpatient SUGAR DEVRIES MD [id number] 09/28/2012 09:32:00 09/28/2012 23:59:59 [place] [id number] 2012 14:17:00 2012 23:59:59 CLS Outpatient [id number] 05/17/2013 09:49:00 Document Registration [id number] 05/01/2013 10:28:00 Document Registration [id number] 03/07/2013 09:48:00 Document Registration [id number] 02/02/2013 10:50:00 Document Registration [id number] 12/02/2012 00:00:00 Document Registration [id number] 05/13/2015 22:51:56 ACT Document Registration [id number] 02/25/2018 08:30:00 02/25/2018 23:59:59 CLS Outpatient ROOPA FOSTER [facility] [id number] 07/04/2018 09:40:00 Document Registration [id number] 06/28/2017 11:20:00 Document Registration [id number] 07/20/2018 05:40:00 07/20/2018 16:00:00 DIS Outpatient KEISHA SHETH DO [facility] PREOP COLONOSCOPY/EGD [id number] 11/10/2017 13:51:00 11/10/2017 23:59:59 CLS Outpatient ROOPA RAMOS [facility] RAD [id number] HX OF ABN MAMMO [id number] 10/16/2016 07:44:00 10/16/2016 23:59:59 CLS Outpatient ESTHER FA[employer] HEARINGS REPORTER [facility] RAD ABNORMAL MAMMO [id number] 10/08/2016 12:49:00 10/08/2016 23:59:59 CLS Outpatient ESTHER FAITH HEARINGS REPORTER [facility] RAD SCREENING [id number] 04/22/2016 08:41:00 04/22/2016 23:59:59 CLS Outpatient JULIANO CARDENAS [facility] RAD HEMATURIA,DYSURIA [id number] 02/22/2016 09:11:00 02/22/2016 11:25:00 DIS Emergency DAVE BENAVIDEZ, UMAIR Roe [facility] ER BACK PAIN [id number] 02/20/2016 17:45:00 02/20/2016 23:59:59 CLS Outpatient JUAN PABLO BENAVIDEZ, ALLY Galvez [facility] RAD LOW BACK PAIN [id number] 02/18/2016 09:38:00 02/18/2016 14:05:00 DIS Emergency CE ORELLANA MD [facility] ER BACK/LEFT HIP PAIN [id number] 02/14/2016 10:24:00 02/14/2016 11:10:00 DIS Outpatient ALLY ALMEIDA MD [facility] CARD DISC DISORDER, SACROCCOCGEAL DISORDER [id number] 12/27/2015 09:00:00 12/27/2015 09:51:00 DIS Outpatient ALLY ALMEIDA MD [facility] CARD DISC DISORDER W/ RADICULOPATHY,SACROCOCCYGEAL DISOR [id number] 10/18/2015 10:04:00 10/18/2015 11:06:00 DIS Outpatient ALLY ALMEIDA MD [facility] 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 [id number] 07/26/2015 11:08:00 07/26/2015 12:32:00 DIS Outpatient ALLY ALMEIDA MD [facility] CARD [id number] 07/23/2015 04:31:00 07/24/2015 11:58:00 DIS Outpatient SUSAN POLLOCK MD [facility] CATH CHEST PAIN [id number] 07/22/2015 15:34:00 07/22/2015 19:46:00 DIS Emergency KIM ZAMORANO SALES AGENT FOOD VENDING SERVICE [facility] ER [id number] 05/13/2015 11:43:00 05/13/2015 23:59:59 CLS Outpatient ALLY ALMEIDA MD [facility] CARD [id number] 01/01/2015 10:07:00 01/01/2015 23:59:59 CLS Outpatient YU WEBSTER SALES AG[employer]ING SERVICE [facility] RAD SCREENING [id number] 09/28/2014 08:15:00 09/28/2014 09:25:00 DIS Outpatient ALLY ALMEIDA MD [facility] CARD DDD [id number] 12/14/2013 13:05:00 12/14/2013 23:59:59 CLS Outpatient YU WEBSTER SALES AGENT [employer] VENDING SERVICE [facility] RAD INCREASED LUMBAGO [id number] 06/27/2013 10:29:00 06/27/2013 23:59:59 CLS Outpatient YU WEBSTER APRN [facility] RAD ROUTINE [id number] 03/07/2013 12:43:00 03/07/2013 23:59:59 CLS Outpatient SUGAR DEVRIES MD [facility] RAD PAIN AND WEAKNESS, HX OF ROTATOR CUFF REPAIR [id number] 02/13/2013 12:28:00 02/13/2013 23:59:59 CLS Outpatient SUGAR DEVRIES MD [facility] RAD NECK STIFFNESS AND PAIN,BACK PAIN,HAND PAIN [id number] 07/27/2018 13:40:00 PEN Preadmit KEISHA SHETH DO [facility] ENDO SCREENING/DYSPAGIA [id number] 04/22/2018 12:55:00 Document Registration [id number] 07/23/2015 04:34:00 Document Registration [id number] 11/05/2014 12:41:00 Document Registration
[2018-07-27 10:10] VITALS: BP 134/76
[2018-07-27 10:40] VITALS: BP 126/75
--- NOTE | 2018-07-27 10:54 | Progress Note-Post Operative ---
Post-Operative Progess Note Surgeon (s)/Shipyard Helper (s) Surgeon KEISHA SHETH DO Shipyard Helper: none Pre-Operative Diagnosis Dsyphagia, Screening Colonoscopy Post-Operative Diagnosis Gastritis, Hiatal Hernia, ?? Barretts Esophagus Cecal Polyp Diverticula Internal Hemorrhoids Procedure & Operative Findings Date of Procedure 07/27/18 Procedure Performed/Findings EGD with bx Colon with snare Anesthesia Type IV sedation by SENIOR QUALITATIVE RESEARCHER Estimated Blood Loss Estimated blood loss (mL): scant Specimens/Packing Specimens Removed antral bx body of stomach bx GE jxn bx Cecal colon polyp, taken in pieces KEISHA SHETH DO Jul 27, 2018 10:54
--- NOTE | 2018-07-27 10:56 | Endoscopy Discharge Instruct ---
Endo Procedure/Findings Findings 1.: Hiatal Hernia, Gastritis, Hernandez's Esophagus 2.: Polyp 3.: Diverticulosis 4.: Internal Hemorrhoids Discharge Instructions - Activity: You might feel a little sleepy until tomorrow. This is due to the medicine you received to relax you. Until tomorrow, you should: NOT drive a car, operate machinery or power tools. NOT drink any alcoholic beverages. NOT make any important decisions or sign importortant papers. Do not return to work until tomorrow, unless otherwise instructed. Resume previous activities tomorrow. Diet: Start by taking liquids. If you tolerate liquids, advance to solid food. Make an appointment for one week Instructions: 1.: Colonoscopy in 1 year Notify Physician - If you experience excessive bleeding, unusual abdominal pain, fever, or chest pain, contact your doctor immediately. Follow-Up: - I have received and understand the above instructions and will call my doctor if I have any further questions. Patient Signature Date Nurse Signature Other (Relationship) KEISHA SHETH DO Jul 27, 2018 10:56
--- NOTE | 2018-07-27 11:11 | Anesthesia-General Post-Op ---
MAC Patient Condition Mental Status/LOC: Same as Preop Cardiovascular: Satisfactory Nausea/Vomiting: Absent Respiratory: Satisfactory Pain: Controlled Complications: Absent Post Op Complications Complications None Follow Up Care/Instructions Patient Instructions None needed. Anesthesiology Discharge Order Discharge Order Patient is doing well, no complaints, stable vital signs, no apparent adverse anesthesia problems. No complications reported per nursing. GANESH HAYES CRNA Jul 27, 2018 11:11
--- NOTE | 2018-07-27 14:51 | OPERATIVE REPORT ---
DATE OF SERVICE: PREOPERATIVE DIAGNOSES: Dysphagia and screening colonoscopy. POSTOPERATIVE DIAGNOSES: 1. Gastritis. 2. Hiatal hernia. 3. Questionable Hernandez's esophagus. 4. Cecal polyp. 5. Diverticulum. 6. Internal hemorrhoids. PROCEDURES: 1. EGD with biopsy. 2. Colonoscopy with snare polypectomy. SURGEON: Jorge Cruz DO. SUPERINTENDENT SEED MILL: None. ANESTHESIA: IV sedation by the SITE FOREMAN. SPECIMEN: One biopsy from the antrum, one biopsy from the body of the stomach and then one biopsy from the GE junction. Flat cecal polyp larger than a cm taken in multiple pieces sent to pathology. PROCEDURE NOTE: After informed consent was obtained, the patient was brought to the endoscopy suite, placed in the bed left lateral decubitus position. She was administered IV sedation by the SITE FOREMAN who then monitored her vitals the entire time, heart rate, blood pressure and pulse ox and the scope was inserted down the mouth into the stomach and towards the antrum, saw some inflammation and erythema in the body of stomach and then saw some at the antrum. Push into the duodenum, this looked okay, took a picture of the duodenum, backed up into the antrum, did a biopsy. Then pulled up back into the body of stomach and did a biopsy of rest of the . Retroflexed the scope, saw what looked like a small hiatal hernia and then pulled back into the GE junction, looked like there was a little bit of Hernandez's esophagus almost creeping up of the Z line. Biopsy was taken here. I then pulled up the rest of the esophagus and took a picture of the esophagus on the way out. There was no stricture or problems in the rest of the esophagus. At this point, switched gloves and switched cameras, went down below, inserted the scope. Upon entering the sigmoid, noted large diverticula, able to push pass this and get all the way to the cecum, took a picture of appendiceal orifice and then just inside this cecal cap almost next to the ileocecal valve was a long flat polyp, elected to do snare polypectomy, removed this in pieces. Able to remove it all and then slowly withdrew the scope insufflating to look circumferentially at the gallagher looking at the cecum up the ascending colon to the hepatic flexure, then down the transverse colon, the splenic flexure into the descending colon and down in the sigmoid and finally into the rectum, retroflexed the rectal vault, saw some minimal internal hemorrhoids, took a picture of this and then removed the scope. The patient tolerated the procedure, recovered in the endoscopy suite. Job ID: [id number] DocumentID: [id number] Dictated Date: 07/27/2018 11:14:22 Assistant Commissioner Date: 07/27/2018 14:50:40 Dictated By: JORGE CRUZ DO
== END 2018-07-27 11:05 | disposition home or self-care (01) ==
LOC: ENDO 07:30
PROVIDERS: ATTEND Surgery
DX: Z12.11 Encounter for screening for malignant neoplasm of colon (principal); D12.0 Benign neoplasm of cecum; K57.30 Diverticulosis of large intestine without perforation or abscess without bleeding; K64.8 Other hemorrhoids; K29.70 Gastritis, unspecified, without bleeding; K44.9 Diaphragmatic hernia without obstruction or gangrene; K21.9 Gastro-esophageal reflux disease without esophagitis; I10 Essential (primary) hypertension; J44.9 Chronic obstructive pulmonary disease, unspecified; G57.93 Unspecified mononeuropathy of bilateral lower limbs; Z87.891 Personal history of nicotine dependence; Z79.899 Other long term (current) drug therapy
CPT/HCPCS: 88305; 88342

== ENCOUNTER → 2019-01-25 | Outpatient (CLI) | payer MEDICARE, OTHER ==
[~2019-01-25] MED LIST changes: -ALEN70TA47 PO; +ALEN70TA5 PO; -ROSU10TA PO; +ROSU10TA22 PO
--- NOTE | 2019-01-25 15:56 | Diagnostic Imaging Report ---
PROCEDURE: US Venous Lower Ext Paramjit. TECHNIQUE: Multiple real-time grayscale images were obtained over the lower extremities in various projections, bilaterally. Additional duplex Doppler and color Doppler images were also obtained. INDICATION: Lower extremity edema. There is no evidence of right or left lower extremity DVT. Both lower extremity deep venous system shows normal compressibility with normal response to augmentation and Valsalva. No fluid collection or mass is seen. ?? IMPRESSION: No evidence of right or left lower extremity DVT. Dictated by: Dictated on workstation # [id number]
== END ==
LOC: RAD 14:15
PROVIDERS: ATTEND Registered Nurse
DX: R60.0 Localized edema (principal)
CPT/HCPCS: 93970

== ENCOUNTER 2019-08-14 05:37 | Outpatient (CLI) | payer MEDICARE, OTHER ==
[~2019-08-14] VITALS: Ht 154.9 cm; Wt 77.7 kg
[~2019-08-14 05:37] MED LIST changes: -OMEP20CA12 PO; +OMEP20CA13 PO; -ROSU20TA31 PO; +ROSU20TA32 PO
[2019-08-14] MEDS ORDERED: MELO7.5T46 PO (09:56)
[2019-08-14] MEDS ORDERED: FESO8TAB PO (13:34)
[2019-08-14] MEDS ORDERED: CETI10TA17 PO (13:34)
[2019-08-14] MEDS ORDERED: TRIM100T PO (13:34)
== END 2019-08-14 13:58 ==
LOC: PREOP 05:37
PROVIDERS: ATTEND Surgery
DX: Z01.818 Encounter for other preprocedural examination (principal)

== ENCOUNTER 2019-08-14 09:01 | Emergency (ER) | payer MEDICARE, OTHER ==
[~2019-08-14] VITALS: Ht 154.9 cm; Wt 77.7 kg
[2019-08-14] MEDS ORDERED: MELO7.5T46 PO (09:56)
--- NOTE | 2019-08-14 10:02 | ED Upper Extremity ---
General Chief Complaint: Upper Extremity Stated Complaint: R SHOULDER PAIN Source: patient Exam Limitations: no limitations History of Present Illness Date Seen by Provider: Aug 14, 2019 Time Seen by Provider: 10:01 Initial Comments 69-year-old female presents with right shoulder pain. Patient reports that it happened this morning she was getting dressed. Reports that she twisted funny and has the pain. Is worse with her extending it against resistance. Or lifting that out to the side. She does have full range of motion. No other injuries reported or concerns. Allergies and Home Medications Allergies Coded Allergies: Penicillins (Verified Allergy, Severe, 07/20/18) celecoxib (Verified Allergy, Severe, FACE SWELLING , 07/20/18) Home Medications Albuterol Sulfate 18 Gm Hfa.aer.ad, 2 PUFF IH QID PRN for WHEEZING, (Reported) Alendronate Sodium 70 Mg Tablet, 70 MG PO WEEKLY ON SATURDAYS, (Reported) Baclofen 10 Mg Tablet, 10 MG PO TID PRN for MUSCLE SPASMS, (Reported) Diclofenac Sodium 75 Mg Tablet.dr, 75 MG PO DAILY, (Reported) Diclofenac Sodium 75 Mg Tablet.dr, 75 MG PO HS PRN for PAIN, (Reported) Diphenhydramine HCl 25 Mg Capsule, 25-50 MG PO HS PRN for ALLERGIES, (Reported) Fesoterodine Fumarate 4 Mg Tab.sr.24h, 4 MG PO DAILY, (Reported) Fluticasone Propionate 16 Gm Hume.susp, 2 SPRAY NS BID PRN for CONGESTION, (Reported) Hydrochlorothiazide 25 Mg Tablet, 25 MG PO DAILY, (Reported) Levothyroxine Sodium 75 Mcg Tablet, 75 MCG PO DAILY, (Reported) Nitrofurantoin Monohyd/M-Cryst 100 Mg Capsule, 100 MG PO BID Prescribed by: VERNON GONZALEZ on 07/24/15 1128 Nitrofurantoin Monohyd/M-Cryst 100 Mg Capsule, 100 MG PO every 4 days, (Reported) Omeprazole 20 Mg Capsule.dr, 20 MG PO DAILY, (Reported) Polyethylene Glycol 3350 119 Gm Powder, 17 GM PO BID PRN for CONSTIPATION Prescribed by: RUY PRO on 02/22/16 1109 Rosuvastatin Calcium 20 Mg Tablet, 20 MG PO HS, (Reported) [prelief] , 2 TAB PO BID, (Reported) Patient Home Medication List Home Medication List Reviewed: Yes Review of Systems Constitutional: No chills, No fever Respiratory: no symptoms reported Cardiovascular: no symptoms reported Gastrointestinal: no symptoms reported Genitourinary: no symptoms reported Musculoskeletal: see HPI Skin: no symptoms reported Psychiatric/Neurological: No Symptoms Reported Past Lhueonz-Quyifh-Cbjvma Hx Past Med/Social Hx: Reviewed Nursing Past Med/Soc Hx Patient Social History Former Smoker, Quit: Jul 20, 2006 Recent Foreign Travel: No Contact w/Someone Who Travel: No Recent Hopitalizations: No Immunizations Up To Date Date of Pneumonia Vaccine: Jul 23, 2017 Date of Influenza Vaccine: May 23, 2018 Seasonal Allergies Seasonal Allergies: No Past Medical History Bladder Surgery, Hysterectomy, Nose, Orthopedic COPD Reproductive Disorders: No Gastroesophageal Reflux, Chronic Constipation Arthritis Hypothyroidsim Eczema Adverse Reaction/Blood Tranf: No Family Medical History Arthritis 19 MOTHER Diabetes mellitus G8 BROTHER G8 SISTER FH: breast cancer G8 SISTER FH: emphysema G8 BROTHER FH: lymphoma G8 BROTHER Myocardial infarction 19 FATHER No Pertinent Family Hx Physical Exam Vital Signs Vital Signs - First Documented 08/14/19 09:42 Temp 36.6 Pulse 88 Resp 18 Pulse Ox 94 O2 Delivery Room Air Capillary Refill : Height, Weight, BMI Height: 5'1.00" Weight: 172lbs. 0.0oz. 78.077655ym; 32.5 BMI Method:Stated General Appearance: WD/WN, no apparent distress Neck: full range of motion, supple Cardiovascular: normal peripheral pulses, regular rate, rhythm Respiratory: lungs clear, normal breath sounds Gastrointestinal: non tender, soft Shoulder: normal ROM, pain, soft tissue tenderness Elbow/Forearm: normal inspection, non-tender Wrist: Yes normal inspection, Yes non-tender Hand: normal inspection, non-tender Neurologic/Tendon: normal sensation Neurologic/Psychiatric: alert, normal mood/affect, oriented x 3 Skin: normal color, warm/dry Progress/Results/Core Measures Results/Orders My Orders Orders - DAVID ESTEBAN DO Shoulder, Right, 3 Views (08/14/19 10:02) Vital Signs/I&O 08/14/19 09:42 Temp 36.6 Pulse 88 Resp 18 B/P (MAP) Pulse Ox 94 O2 Delivery Room Air Departure Impression Primary Impression: Strain of right shoulder Qualified Codes: S46.911A - Strain of unspecified muscle, fascia and tendon at shoulder and upper arm level, right arm, initial encounter Disposition: HOME, SELF-CARE Condition: Stable Departure-Patient Inst. Referrals: JACLYN CRUZ DO (PCP/Family) Primary Care Physician Patient Instructions: Tendonitis (DC), Muscle Strain Add. Discharge Instructions: Tylenol or ibuprofen as needed for pain Follow-up with your primary care provider or orthopedic surgeon if symptoms are not improved All discharge instructions reviewed with patient and/or family. Voiced understanding. DAVID ESTEBAN DO Aug 14, 2019 10:02 POS
--- NOTE | 2019-08-14 10:31 | Diagnostic Imaging Report ---
CLINICAL HISTORY: Right shoulder pain. Prior rotator cuff surgery. COMPARISON: None. TECHNIQUE: Three views of the right shoulder. FINDINGS: There is no acute fracture or dislocation of the right shoulder. Alignment is anatomic. Moderate degenerative changes are present in the right shoulder with bulky osteophytes and joint space narrowing. No large joint effusion is seen. The included soft tissues are unremarkable. The included right chest is clear. IMPRESSION: 1. No acute fracture or dislocation in the right shoulder. 2. Moderate degenerative changes in the right shoulder. Dictated by: Dictated on workstation # [id number]
[2019-08-14 11:13] VITALS: BP 110/76
[2019-08-14] MEDS ORDERED: TRIM100T PO (13:34)
[2019-08-14] MEDS ORDERED: CETI10TA17 PO (13:34)
[2019-08-14] MEDS ORDERED: FESO8TAB PO (13:34)
--- OUTSIDE RECORDS SUMMARY | 2019-09-07 21:24 | XMS REPORT ---
Author Author Paola Lucero [facility] Address [address] [place] [address] Care Team Providers Care Extern Name Role Phone YU Lucero Unavailable PROBLEMS Type Condition ICD9-CM Code OCO62-EU Code Onset Dates Condition S tatus SNOMED Code Problem Abnormal MRI, lumbar spine R93.7 Act sung 639836010 Problem Hyperlipemia, mixed E78.2 Active 674444785 Problem Esophageal reflux K21.9 Active 24 6549141 Problem Non-seasonal allergic rhinitis due to pollen J30.1 Active 69336806 Problem COPD (chronic obstructive pulmonary disease) J44.9 Active 36935118 Problem Essential hypertension I10 Active 56695199 Problem Acquired hypothyroidism E03.9 Active 119743799 Problem Neuropathy G62.9 Active 303887484 Problem Chronic fatigue R53.82 Active 5270 2003 ALLERGIES No Information ENCOUNTERS Encounter Location Date Diagnosis [place] [id number], [place] [id number] January, Arthralgia of left temporomandibular shaina nt M26.622 [place] [id number] [place], [place] [address], [place] [id number] January, Essential hypertension I10 ; Neuropathy G62.9 and Edema, unspecified type R60.9 [place] [id number] [employer], [place] [id number] Sep, [place] [id number] [place], [place] [address], [employer] S [id number] Sep, COPD (chronic obstructive pulmonary dise ase) J44.9 ; Essential hypertension I10 ; Hyperlipemia, mixed E78.2 ; Acquired hypothyroidism E03.9 ; Esophageal reflux K21.9 ; Midline low back pain, unspecified chronicity, with sciatica presence unspecified M54.5 and Michaelle infection B37.[address] [id number] [place] [id number] Sep, Toenail fungus B35.1 [facility] [place] [address] [facility] [id number] [place] [id number] Aug, [facility] [place] [address] [facility] [id number] [place] [id number] Aug, Rhinitis J31.0 [facility] [address] [id number] [id number] Aug, [facility] [place] [address] [facility] [id number] [place] [id number] Aug, [facility] [place] [address] [facility] [id number] [place] [id number] Aug, [facility] [place] [address] [facility] [facility] [address] [id number] [id number] Jul, Urinary tract infection, site not specif ied N39.0 and Dysuria R30.0 [facility] [place] [address] [facility] [id number] [place] [id number] Jun, Acquired hypothyroidism E03.9 ; Hyperlip emia, mixed E78.2 ; Essential hypertension I10 ; Esophageal reflux K21.9 ; COPD (chronic obstructive pulmonary disease) J44.9 ; Ingrown toenail L60.0 ; Foot pain, bilateral M79.671 ; Noncompliance by refusing intervention or support Z53.29 ; Colon cancer screening Z12.[address] [facility] [address] [facility] [id number] [place] [id number] Jun, Hyperlipemia, mixed E78.2 [facility] [place] [address] [facility] [id number] [place] [id number] Jun, Hypothyroidism, unspecified type E03.9 ; Hyperlipemia, mixed E78.2 ; Essential hypertension I10 and Encounter for immunization Z23 [facility] [place] [address] [facility] [id number] [place] [id number] Jun, [facility] [place] [address] [facility] [id number] [place] [id number] May, Essential hypertension I10 [facility] [place] [address] [id number] [place] [id number] May, Hypothyroidism, unspecified type E03.9 ; Essential hypertension I10 and Hyperlipemia, mixed E78.2 [facility] [place] [address] [id number] [place] [id number] Apr, [facility] [place] [address] [id number] [place] [id number] Apr, Abnormal mammogram of left breast R92.8 [facility] [place] [address] [id number] [place] [id number] Mar, Abnormal mammogram of left breast R92.8 [facility] [place] [address] [id number] [place] [id number] Mar, [facility] [place] [address] [id number] [place] [id number] Mar, [facility] [address] [facility] [id number] [address] [place] [address] Feb, Sore throat and laryngitis J 06.0 and Strep throat J02.0 [facility] [address] [facility] [id number] [address] [place] [address] Dec, [facility] [place] [address] [id number] [place] [id number] Dec, [facility] [place] [address] [id number] [place] [id number] Dec, Dilated pore of Mk of back L70.8 ; Se borrheic keratoses L82.1 and Non- seasonal allergic rhinitis due to pollen J30.1 [facility] [place] [address] [id number] [place] [id number] Dec, [facility] [address] [facility] [address] [id number] [id number] Oct, [facility] [place] [address] [id number] [place] [id number] Oct, Screening breast examination Z12.31 and History of abnormal mammogram Z87.898 [facility] [place] [address] [place] [id number] [place] [id number] Sep, [facility] [place] [address] [place] [id number] [place] [id number] Sep, [facility] [place] [address] [place] [id number] [place] [id number] Sep, [facility] [place] [address] [place] [id number] [place] [address], [place] [id number] Jun, Obesity (BMI 30.0-34.9) E66.9 ; Chronic fatigue R53.82 ; Neuropathy G62.9 ; Essential hypertension I10 and Encounter for immunization Z23 [facility] [address] [place] [address] [id number] [place] [address], [place] [id number] Jun, Neuropathy G62.9 and Essential hypertens ion I10 [facility] [id number] [place] [id number] Apr, [facility] [place] [address] [place] [address] [id number] [place] [address], [place] [id number] Mar, Neuropathy G62.9 ; Hypothyroidism, unspe cified type E03.9 ; Essential hypertension I10 ; Muscle spasm M62.838 and Hyperlipemia, mixed E78.2 [facility] [id number] [place] [id number] Feb, [facility] [place] [id number] [place] [id number] January, [facility] [place] [id number] [place] [id number] Dec, [facility] [place] [address] [place] [address] [id number] [place] [address], [place] [id number] Dec, Hypothyroidism, unspecified type E03.9 [facility] [place] [address] [place] [id number] [place] [id number] Nov, [facility] [place] [address] [place] [id number] [place] [address], [place] [id number] Nov, Neuropathy G62.9 ; Sinus congestion R09. 81 ; Hyperlipemia, mixed E78.2 and Hypothyroidism, unspecified type E03.9 [facility] [place] [address] [place] [id number] [id number] Nov, Neuropathy G62.9 [facility] [place] [address] [facility] [id number] [place] [id number] Nov, Sinus congestion R09.81 and Acquired hyp othyroidism E03.9 [facility] [place] [address] [facility] [id number] [place] [id number] Nov, Acquired hypothyroidism E03.9 [facility] [place] [address] [id number] [place] [id number] Oct, [facility] [place] [address] [facility] [id number] [place] [id number] Oct, Sinus congestion R09.81 and Neuropathy G 62.9 [place] [id number] [place] [id number] Oct, Fever, unspecified R50.9 ; Sinus congest ion R09.81 and Neuropathy G62.9 [place] [address] [id number] [place] [address] Oct, [facility] [place] [address] [place] [id number] [place] [id number] Oct, Abnormal mammogram of left breast R92.8 [place] [id number] [place] [id number] Sep, Abnormal mammogram R92.8 [place] [address] [facility] [id number] [place] [id number] Sep, Acquired hypothyroidism E03.9 [facility] [place] [address] [facility] [id number] [place] [id number] Sep, Hypothyroidism, unspecified type E03.9 ; Hyperlipemia, mixed E78.2 and Essential hypertension I10 [facility] [id number] [place] [id number] Sep, Hypothyroidism, unspecified type E03.9 a nd Hyperlipemia, mixed E78.2 [facility] [place] [address] [place] [id number] [place] [id number] Aug, Acute maxillary sinusitis, recurrence no t specified J01.00 [facility] [place] [address] [id number] [place] [id number] Jul, Hyperlipemia, mixed E78.2 [facility] [place] [address] [id number] [place] [id number] Jul, Acquired hypothyroidism E03.9 ; Hyperlip emia, mixed E78.2 ; Multiple joint pain M25.50 ; Esophageal reflux K21.9 ; Otitis media with effusion, right H65.91 and Essential hypertension I10 [facility] [place] [address] [id number] [place] [id number] Jul, Gastroesophageal reflux disease, esophag itis presence not specified K21.9 [facility] [place] [address] [id number] [place] [id number] May, [facility] [place] [address] [id number] [place] [id number] Apr, Cystitis N30.90 and Well woman exam Z01. 419 [facility] [place] [address] [id number] [place] [id number] Apr, Hematuria R31.9 and Dysuria R30.0 [facility] [place] [address] [id number] [place] [id number] Apr, [facility] [place] [address] [id number] [place] [id number] Apr, Urinary tract infection, site not specif ied N39.0 and Hematuria, unspecified R31.9 [facility] [place] [address] [id number] [place] [id number] Dec, [facility] [place] [address] [id number] [place] [id number] Nov, [facility] [place] [address] [id number] [place] [id number] Oct, Hyperlipemia, mixed E78.2 [facility] [place] [address] [id number] [place] [id number] Oct, Gastroesophageal reflux disease, esophag itis presence not specified K21.9 ; Acute serous otitis media of left ear, recurrence not specified H65.02 ; Hyperlipemia, mixed E78.2 and Hypothyroidism, unspecified type E03.9 [place] [address] [facility] [id number] [place], [place] [id number] Sep, [address] [id number] [place], S [id number] Sep, Actinic keratoses L57.0 and Stuffy and r unny nose J34.[address], [place] [id number] Aug, [address], [place] [id number] Aug, Acute cystitis with hematuria N30.[id number] [place] [address], S [id number] Jul, Reflux esophagitis K21.0 ; Acquired defo rmities of toe, 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 ; Multiple joint pain M25.50 and Sinus congestion R09.[address], [place] [id number] Jul, [address], S [id number] Jun, Acute cystitis without hematuria N30.00 ; Dysuria R30.0 ; Flank pain R10.9 and High risk medication use Z79.899 [address], S [id number] Jun, Urinary tract infection N39.0 [facility] [address] [id number] [id number] Jun, [address] [id number] [place] [id number] Jun, Urinary tract infection, site not specif ied 599.0 and Encounter for immunization Z23 [facility] [place] [address] [facility] [id number] [facility] [place] [id number] Jun, [place] [id number] [id number] May, [place] [id number] [place] [id number] Dec, [facility] [address] [facility] [id number] [address] [place] [address], [place] [address] Dec, [facility] [address] [facility] [id number] [address] [place] [address], [place] [address] Dec, [facility] [place] [address] [id number] [place] [id number] Oct, [facility] [address] [id number] [address] [place] [address], [place] [address] Oct, [facility] [place] [address] [id number] [place] [id number] Sep, [facility] [address] [facility] [id number] [address] [place] [address], [place] [address] Sep, [facility] [place] [address] [id number] [place] [id number] Sep, [facility] [address] [facility] [id number] [address] [place] [address], [place] [address] Sep, [facility] [place] [address] [id number] [place] [id number] Aug, [facility] [place] [address] [id number] [place] [id number] Aug, [facility] [address] [facility] [id number] [address] [place] [address], [place] [address] Aug, [facility] [address] [id number] [address] [place] [address], [place] [address] Aug, [facility] [place] [address] [id number] [place] [id number] Aug, [facility] [address] [facility] [id number] [address] [place] [address], [place] [address] Aug, [facility] [place] [address] [id number] [place] [id number] Jul, [facility] [address] [facility] [id number] [address] [place] [address], [place] [address] Jul, [facility] [place] [address] [id number] [place] [id number] Jul, [facility] [address] [id number] [address] [place] [address], [place] [address] Jul, [facility] [place] [address] [id number] [place] [id number] Jul, [facility] [address] [id number] [address] [place] [address], [place] [address] Jul, [facility] [place] [address] [id number] [place] [id number] Jul, [facility] [address] [id number] [address] [place] [address], [place] [address] Jul, [facility] [address] [id number] [address] [place] [address], [place] [address] Jun, [facility] [address] [id number] [address] [place] [address], [place] [address] Jun, [facility] [place] [address] [id number] [place] [id number] Jun, [facility] [address] [id number] [address] [place] [address] Jun, [facility] [address] [id number] [address] [place] [address], [place] [address] Jun, [facility] [place] [address] [id number] [place] [id number] Jun, [facility] [place] [address] [id number] [place] K [place] [id number] Jun, [facility] [address] [id number] [address] [place] [address], [place] [address] Jun, [facility] [place] [address] [id number] [place] [id number] Jun, [facility] [address] [id number] [address] [place] [address], [place] [address] Jun, [facility] [place] [address] [id number] [place] [id number] May, [facility] [address] [id number] [facility] [place] [address] May, [facility] [place] [address] [id number] [place] [id number] May, [facility] [address] [id number] [facility] [place] [address] May, [facility] [address] [id number] [facility] [place] [address] Apr, [facility] [address] [id number] [address] [place] [address], [place] [address] Apr, [facility] [place] [address] [id number] [place] [id number] Apr, [facility] [address] [id number] [address] [place] [address], [place] [address] Apr, [facility] [place] [address] [id number] [place] [id number] Mar, [facility] [address] [id number] [address] [place] [address], [place] [address] Mar, [facility] [place] [address] [id number] [place] [id number] Feb, [facility] [address] [id number] [facility] [place] [address] Feb, [facility] [place] [address] [id number] [place] [id number] January, [facility] [address] [id number] [facility] [place] [address] January, [facility] [place] [address] [id number] [place] [id number] January, [facility] [address] [id number] [facility] [place] [address] January, [facility] [place] [address] [id number] [place] [id number] Dec, [facility] [address] [id number] [address] [place] [address], [place] [address] Dec, [facility] [place] [address] [id number] [place] [id number] Dec, [facility] [address] [id number] [address] [place] [address], [place] [address] Dec, [facility] [place] [address] [id number] [place] [id number] Nov, [facility] [address] [id number] [address] [place] [address], [place] [address] Nov, [facility] [address] [id number] [address] [place] [address], [place] [address] Oct, [facility] [address] [facility] [id number] [address] [place] [address], [place] [address] Oct, [facility] [address] [id number] [address] [place] [address], [place] [address] Sep, [facility] [place] [address] [id number] [place] [id number] Sep, [facility] [place] [address] [id number] [place] [id number] Sep, [facility] [address] [id number] [address] [place] [address], [place] [address] Sep, [facility] [place] [address] [id number] [place] [id number] Aug, [facility] [address] [id number] [address] [place] [address], [place] [address] Aug, [facility] [place] [address] [id number] [place] [id number] Jul, [facility] [address] [id number] [address] [place] [address], [place] [address] Jul, [facility] [place] [address] [id number] [place] [id number] Jul, [facility] [address] [id number] [address] [place] [address], [place] [address] Jul, [facility] [place] [address] [id number] [place] [id number] Jul, [facility] [address] [id number] [address] [place] [address], [place] [address] Jul, [facility] [place] [address] [id number] [place] [id number] Jul, [facility] [address] [id number] [address] [place] [address], [place] [address] Jul, [facility] [address] [id number] [address] [place] [address], [place] [address] Jul, [facility] [place] [address] [id number] [place] [id number] Jun, [facility] [address] [id number] [address] [place] [address], [place] [address] Jun, [facility] [place] [address] [id number] [place] [id number] Jun, [facility] [place] [address] [id number] [place] [id number] Jun, [facility] [address] [id number] [address] [place] [address], [place] [address] Jun, [facility] [address] [id number] [address] [place] [address], [place] [address] Jun, [facility] [place] [address] [id number] [place] [id number] Jun, [facility] [address] [id number] [address] [place] [address], [place] [address] Jun, [facility] [address] [id number] [address] [place] [address], [place] [address] Jun, [facility] [place] [address] [id number] [place] [id number] May, [facility] [place] [address] [id number] [place] [id number] May, [facility] [place] [address] [id number] [place] [id number] May, [facility] [place] [address] [id number] [place] [id number] May, [facility] [place] [address] [id number] [place] [id number] Apr, [facility] [place] [address] [id number] [place] [id number] Feb, [facility] [place] [address] [id number] [place] [id number] Feb, [facility] [address] [id number] [address] [place] [id number] Feb, [facility] [place] [address] [id number] [place] [id number] January, [facility] [address] [facility] [id number] [address] [place] [phone] January, [facility] [place] [address] [id number] [place] [id number] January, [facility] [place] [address] [id number] [place] [id number] January, [facility] [place] [address] [id number] [place] [id number] January, [facility] [address] [facility] [id number] [address] [place] [phone] Nov, [facility] [address] [facility] [id number] [address] [place] [phone] Nov, [facility] [place] [address] [id number] [place] [id number] Oct, [facility] [place] [address] [id number] [place] [id number] Oct, [facility] [place] [address] [id number] [place] [id number] Oct, [facility] [place] [address] [id number] [place] [id number] Oct, [facility] [address] [id number] [address] [place] [phone] Oct, [facility] [address] [facility] [id number] [address] [place] [id number] Oct, [facility] [place] [address] [id number] [place] [id number] Sep, [facility] [address] [facility] [id number] [address] [place] [phone] Sep, [facility] [place] [address] [id number] [place] [id number] Sep, [facility] [place] [address] [id number] [place] [id number] Sep, [facility] [place] [address] [id number] [place] [id number] Jun, [facility] [address] [id number] [address] [place] [phone] Jun, [facility] [place] [address] [id number] [place] [id number] May, [facility] [place] [address] [id number] [place] [id number] May, [facility] [place] [address] [id number] [place] [id number] Apr, [facility] [place] [address] [id number] [place] [id number] Apr, [facility] [place] [address] [id number] [place] [id number] Apr, [facility] [place] [address] [id number] [place] [id number] Mar, [facility] [address] [id number] [address] [place] [address], [place] [address] Feb, [facility] [place] [address] [id number] [place] [id number] Nov, [facility] [place] [address] [id number] [place] [id number] Nov, [facility] [address] [facility] [id number] [address] [place] [id number] Nov, [facility] [address] [facility] [id number] [address] [place] [phone] Nov, [facility] [address] [facility] [id number] [address] [place] [phone] Nov, [facility] [facility] [address] [facility] [id number] [place], S [id number] Nov, [facility] [address] [facility] [id number] [place], S [id number] Sep, [facility] [address] [facility] [id number] [place], S [id number] Sep, IMMUNIZATIONS No Known Immunizations SOCIAL HISTORY Never Assessed REASON FOR VISIT PLAN OF CARE VITAL SIGNS MEDICATIONS No Known Medications RESULTS No Results PROCEDURES No Known procedures INSTRUCTIONS MEDICATIONS ADMINISTERED No Known Medications MEDICAL (GENERAL) HISTORY Type Description Date Medical History hyperlipidemia Medical History acid reflux Medical History allergies Medical History Arthritis Medical History chronic obstructive pulmonary disease (C OPD) Medical History osteoporosis Medical History thyroid disorder [...] ankle surgery x 5 (ankle is now fu sed) 2010 Surgical History decompressive lumbar laminectomy and fus ion L4-S1 03/06/2016 Surgical History Hemmroidectomy-Dr. YANG in [place] 2013 Surgical History EGD/Colonoscopy 07/27/18 Hospitalization History surgeries Hospitalization History [facility] for abdominal/chest pain 07/2015 Hospitalization History Inpt for lumbar surgery x's 10 days 02/2015 Hospitalization History Pt was in [facility] home for rehab from surgery, Dx with UTI
--- OUTSIDE RECORDS SUMMARY | 2019-09-07 21:24 | XMS REPORT ---
Author Author Paola Lucero [facility] Address [address] [place] [address] Care Team Providers Care Science Technician Name Role Phone YU Lucero Unavailable PROBLEMS Type Condition ICD9-CM Code LWL50-YI Code Onset Dates Condition S tatus SNOMED Code Problem Abnormal MRI, lumbar spine R93.7 Act sung 308807385 Problem Hyperlipemia, mixed E78.2 Active 312602478 Problem Esophageal reflux K21.9 Active 24 6808395 Problem Non-seasonal allergic rhinitis due to pollen J30.1 Active 01283897 Problem COPD (chronic obstructive pulmonary disease) J44.9 Active 86979384 Problem Essential hypertension I10 Active 60366516 Problem Acquired hypothyroidism E03.9 Active 921643980 Problem Neuropathy G62.9 Active 175369250 Problem Chronic fatigue R53.82 Active 5270 2003 ALLERGIES No Information ENCOUNTERS Encounter Location Date Diagnosis [place] [id number] [place] [id number] January, Arthralgia of left temporomandibular shaina nt M26.622 [place] [id number] [place], [place] [address], [place] [id number] January, Essential hypertension I10 ; Neuropathy G62.9 and Edema, unspecified type R60.9 [place] [id number] [id number] Sep, [place] [id number] [place], [place] [address], [employer] [place] [id number] Sep, COPD (chronic obstructive pulmonary dise ase) J44.9 ; Essential hypertension I10 ; Hyperlipemia, mixed E78.2 ; Acquired hypothyroidism E03.9 ; Esophageal reflux K21.9 ; Midline low back pain, unspecified chronicity, with sciatica presence unspecified M54.5 and Michaelle infection B37.[address] [id number] [place] [id number] Sep, Toenail fungus B35.1 [facility] [place] [address] [facility] [id number] [place] [id number] Aug, [facility] [place] [address] [facility] [id number] [place] [id number] Aug, Rhinitis J31.0 [facility] [address] [id number] [place] [id number] Aug, [facility] [place] [address] [facility] [id number] [place] [id number] Aug, [facility] [place] [address] [facility] [id number] [place] [id number] Aug, [facility] [place] [address] [facility] [address] [id number] [place] [id number] Jul, Urinary tract infection, site not specif ied N39.0 and Dysuria R30.0 [facility] [place] [address] [facility] [id number] [place] [id number] Jun, Acquired hypothyroidism E03.9 ; Hyperlip emia, mixed E78.2 ; Essential hypertension I10 ; Esophageal reflux K21.9 ; COPD (chronic obstructive pulmonary disease) J44.9 ; Ingrown toenail L60.0 ; Foot pain, bilateral M79.671 ; Noncompliance by refusing intervention or support Z53.29 ; Colon cancer screening Z12.11 and Rhinitis J31.0 [facility] [address] [facility] [id number] [place] [id number] Jun, Hyperlipemia, mixed E78.2 [facility] [place] [address] [facility] [id number] [place] [id number] Jun, Hypothyroidism, unspecified type E03.9 ; Hyperlipemia, mixed E78.2 ; Essential hypertension I10 and Encounter for immunization Z23 [facility] [place] [address] [facility] [id number] [place] [id number] Jun, [facility] [place] [address] [facility] [id number] [place] [id number] May, Essential hypertension I10 [facility] [place] [address] [id number] [place] [id number] May, Hypothyroidism, unspecified type E03.9 ; Essential hypertension I10 and Hyperlipemia, mixed E78.2 [facility] [place] [address] [id number] [place] [id number] Apr, [facility] [place] [address] [id number] [place] [id number] Apr, Abnormal mammogram of left breast R92.8 [facility] [place] [address] [id number] [place] [id number] Mar, Abnormal mammogram of left breast R92.8 [facility] [place] [address] [id number] [place] [id number] Mar, [facility] [place] [address] [id number] [place] [id number] Mar, [facility] [address] [facility] [id number] [address] [place] [address] Feb, Sore throat and laryngitis J 06.0 and Strep throat J02.0 [facility] [place] [address] [facility] [id number] [address] [place] [address] Dec, [facility] [place] [address] [id number] [place] [id number] Dec, [facility] [place] [address] [id number] [place] [id number] Dec, Dilated pore of Mk of back L70.8 ; Se borrheic keratoses L82.1 and Non- seasonal allergic rhinitis due to pollen J30.1 [facility] [place] [address] [id number] [place] [id number] Dec, [facility] [place] [address] [facility] [address] [id number] [place] [id number] Oct, [facility] [place] [address] [id number] [place] [id number] Oct, Screening breast examination Z12.31 and History of abnormal mammogram Z87.898 [facility] [place] [address] [place] [id number] [place] [id number] Sep, [facility] [place] [address] [id number] [place] [id number] Sep, [facility] [place] [address] [id number] [place] [id number] Sep, [facility] [place] [address] [place] [id number] [place] [address], [place] [id number] Jun, Obesity (BMI 30.0-34.9) E66.9 ; Chronic fatigue R53.82 ; Neuropathy G62.9 ; Essential hypertension I10 and Encounter for immunization Z23 [facility] [address] [id number] [place] [address], [place] [id number] Jun, Neuropathy G62.9 and Essential hypertens ion I10 [facility] [id number] [place] [id number] Apr, [facility] [place] [id number] [place] [address], [place] [id number] Mar, Neuropathy G62.9 ; Hypothyroidism, unspe cified type E03.9 ; Essential hypertension I10 ; Muscle spasm M62.838 and Hyperlipemia, mixed E78.2 [facility] [id number] [place] [id number] Feb, [facility] [place] [id number] [place] [id number] January, [facility] [place] [id number] [place] [id number] Dec, [facility] [place] [id number] [place] [address], [place] [id number] Dec, Hypothyroidism, unspecified type E03.9 [facility] [place] [address] [place] [address] [id number] [place] [id number] Nov, [facility] [place] [id number] [place] [address], [place] [id number] Nov, Neuropathy G62.9 ; Sinus congestion R09. 81 ; Hyperlipemia, mixed E78.2 and Hypothyroidism, unspecified type E03.9 [facility] [place] [address] [place] [address] [id number] [id number] Nov, Neuropathy G62.9 [facility] [place] [address] [facility] [id number] [place] [id number] Nov, Sinus congestion R09.81 and Acquired hyp othyroidism E03.9 [facility] [place] [address] [facility] [id number] [place] [id number] Nov, Acquired hypothyroidism E03.9 [facility] [place] [address] [id number] [place] [id number] Oct, [facility] [place] [address] [facility] [id number] [place] [id number] Oct, Sinus congestion R09.81 and Neuropathy G 62.9 [place] [id number] [place] [id number] Oct, Fever, unspecified R50.9 ; Sinus congest ion R09.81 and Neuropathy G62.9 [place] [address] [id number] [place] [address] Oct, [facility] [place] [address] [place] [address] [id number] [place] [id number] Oct, Abnormal mammogram of left breast R92.8 [place] [id number] [place] [id number] Sep, Abnormal mammogram R92.8 [place] [address] [facility] [id number] [place] [id number] Sep, Acquired hypothyroidism E03.9 [facility] [place] [address] [facility] [id number] [place] [id number] Sep, Hypothyroidism, unspecified type E03.9 ; Hyperlipemia, mixed E78.2 and Essential hypertension I10 [facility] [id number] [place] [id number] Sep, Hypothyroidism, unspecified type E03.9 a nd Hyperlipemia, mixed E78.2 [facility] [place] [address] [place] [address] [id number] [place] [id number] Aug, Acute maxillary sinusitis, recurrence no t specified J01.00 [facility] [place] [address] [id number] [place] [id number] Jul, Hyperlipemia, mixed E78.2 [facility] [place] [address] [id number] [place] [id number] Jul, Acquired hypothyroidism E03.9 ; Hyperlip emia, mixed E78.2 ; Multiple joint pain M25.50 ; Esophageal reflux K21.9 ; Otitis media with effusion, right H65.91 and Essential hypertension I10 [facility] [place] [address] [id number] [place] [id number] Jul, Gastroesophageal reflux disease, esophag itis presence not specified K21.9 [facility] [place] [address] [id number] [place] [id number] May, [facility] [place] [address] [id number] [place] [id number] Apr, Cystitis N30.90 and Well woman exam Z01. 419 [facility] [place] [address] [id number] [place] [id number] Apr, Hematuria R31.9 and Dysuria R30.0 [facility] [place] [address] [id number] [place] [id number] Apr, [facility] [place] [address] [id number] [place] [id number] Apr, Urinary tract infection, site not specif ied N39.0 and Hematuria, unspecified R31.9 [facility] [place] [address] [id number] [place] [id number] Dec, [facility] [place] [address] [id number] [place] [id number] Nov, [facility] [place] [address] [id number] [place] [id number] Oct, Hyperlipemia, mixed E78.2 [facility] [place] [address] [id number] [place] [id number] Oct, Gastroesophageal reflux disease, esophag itis presence not specified K21.9 ; Acute serous otitis media of left ear, recurrence not specified H65.02 ; Hyperlipemia, mixed E78.2 and Hypothyroidism, unspecified type E03.9 [place] [address] [facility] [id number] [place] [id number] Sep, [address] [id number] [place] [id number] Sep, Actinic keratoses L57.0 and Stuffy and r unny nose J34.[address], [place] [id number] Aug, [address] [id number] Aug, Acute cystitis with hematuria N30.[address] [place] [address], S [id number] Jul, Reflux esophagitis K21.0 ; Acquired defo rmities of toe, 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 ; Multiple joint pain M25.50 and Sinus congestion R09.81 [address] [id number] Jul, [address] [id number] Jun, Acute cystitis without hematuria N30.00 ; Dysuria R30.0 ; Flank pain R10.9 and High risk medication use Z79.899 [address], [place] [id number] Jun, Urinary tract infection N39.0 [facility] [address] [id number] [place] [id number] Jun, [address] [id number] [place] [id number] Jun, Urinary tract infection, site not specif ied 599.0 and Encounter for immunization Z23 [facility] [place] [address] [facility] [id number] [facility] [place] [id number] Jun, [place] [id number] [id number] May, [place] [id number] [place] [id number] Dec, [facility] [address] [facility] [id number] [address] [place] [address], [place] [address] Dec, [facility] [address] [facility] [id number] [address] [place] [address], [place] [address] Dec, [facility] [place] [address] [id number] [place] [id number] Oct, [facility] [address] [id number] [address] [place] [address], [place] [address] Oct, [facility] [place] [address] [id number] [place] [id number] Sep, [facility] [address] [facility] [id number] [address] [place] [address], [place] [address] Sep, [facility] [place] [address] [id number] [place] [id number] Sep, [facility] [address] [facility] [id number] [address] [place] [address], [place] [address] Sep, [facility] [place] [address] [id number] [place] [id number] Aug, [facility] [place] [address] [id number] [place] [id number] Aug, [facility] [address] [facility] [id number] [address] [place] [address], [place] [address] Aug, [facility] [address] [id number] [address] [place] [address], [place] [address] Aug, [facility] [place] [address] [id number] [place] [id number] Aug, [facility] [address] [facility] [id number] [address] [place] [address], [place] [address] Aug, [facility] [place] [address] [id number] [place] [id number] Jul, [facility] [address] [facility] [id number] [address] [place] [address], [place] [address] Jul, [facility] [place] [address] [id number] [place] [id number] Jul, [facility] [address] [id number] [address] [place] [address], [place] [address] Jul, [facility] [place] [address] [id number] [place] [id number] Jul, [facility] [address] [id number] [address] [place] [address], [place] [address] Jul, [facility] [place] [address] [id number] [place] [id number] Jul, [facility] [address] [id number] [address] [place] [address], [place] [address] Jul, [facility] [address] [id number] [address] [place] [address], [place] [address] Jun, [facility] [address] [id number] [address] [place] [address], [place] [address] Jun, [facility] [place] [address] [id number] [place] [id number] Jun, [facility] [address] [id number] [address] [place] [address] Jun, [facility] [address] [id number] [address] [place] [address], [place] [address] Jun, [facility] [place] [address] [id number] [place] [id number] Jun, [facility] [place] [address] [id number] [place] [id number] Jun, [facility] [address] [id number] [address] [place] [address], [place] [address] Jun, [facility] [place] [address] [id number] [place] [id number] Jun, [facility] [address] [id number] [address] [place] [address], [place] [address] Jun, [facility] [place] [address] [id number] [place] [id number] May, [facility] [address] [id number] [facility] [place] [address] May, [facility] [place] [address] [id number] [place] [id number] May, [facility] [address] [id number] [facility] [place] [address] May, [facility] [address] [id number] [facility] [place] [address] Apr, [facility] [address] [id number] [address] [place] [address], [place] [address] Apr, [facility] [place] [address] [id number] [place] [id number] Apr, [facility] [address] [id number] [address] [place] [address], [place] [address] Apr, [facility] [place] [address] [id number] [place] [id number] Mar, [facility] [address] [id number] [address] [place] [address], [place] [address] Mar, [facility] [place] [address] [id number] [place] [id number] Feb, [facility] [address] [id number] [facility] [place] [address] Feb, [facility] [place] [address] [id number] [place] [id number] January, [facility] [address] [id number] [facility] [place] [address] January, [facility] [place] [address] [id number] [place] [id number] January, [facility] [address] [id number] [facility] [place] [address] January, [facility] [place] [address] [id number] [place] [id number] Dec, [facility] [address] [id number] [address] [place] [address], [place] [address] Dec, [facility] [place] [address] [id number] [place] [id number] Dec, [facility] [address] [id number] [address] [place] [address], [place] [address] Dec, [facility] [place] [address] [id number] [place] [id number] Nov, [facility] [address] [id number] [address] [place] [address], [place] [address] Nov, [facility] [address] [id number] [address] [place] [address], [place] [address] Oct, [facility] [address] [facility] [id number] [address] [place] [address], [place] [address] Oct, [facility] [address] [id number] [address] [place] [address], [place] [address] Sep, [facility] [place] [address] [id number] [place] [id number] Sep, [facility] [place] [address] [id number] [place] [id number] Sep, [facility] [address] [id number] [address] [place] [address], [place] [address] Sep, [facility] [place] [address] [id number] [place] [id number] Aug, [facility] [address] [id number] [address] [place] [address], [place] [address] Aug, [facility] [place] [address] [id number] [place] [id number] Jul, [facility] [address] [id number] [address] [place] [address], [place] [address] Jul, [facility] [place] [address] [id number] [place] [id number] Jul, [facility] [address] [id number] [address] [place] [address], [place] [address] Jul, [facility] [place] [address] [id number] [place] [id number] Jul, [facility] [address] [id number] [address] [place] [address], [place] [address] Jul, [facility] [place] [address] [id number] [place] [id number] Jul, [facility] [address] [id number] [address] [place] [address], [place] [address] Jul, [facility] [address] [id number] [address] [place] [address], [place] [address] Jul, [facility] [place] [address] [id number] [place] [id number] Jun, [facility] [address] [id number] [address] [place] [address], [place] [address] Jun, [facility] [place] [address] [id number] [place] [id number] Jun, [facility] [place] [address] [id number] [place] [id number] Jun, [facility] [address] [id number] [address] [place] [address], [place] [address] Jun, [facility] [address] [id number] [address] [place] [address], [place] [address] Jun, [facility] [place] [address] [id number] [place] [id number] Jun, [facility] [address] [id number] [address] [place] [address], [place] [address] Jun, [facility] [address] [id number] [address] [place] [address], [place] [address] Jun, [facility] [place] [address] [id number] [place] [id number] May, [facility] [place] [address] [id number] [place] [id number] May, [facility] [place] [address] [id number] [place] [id number] May, [facility] [place] [address] [id number] [place] [id number] May, [facility] [place] [address] [id number] [place] [id number] Apr, [facility] [place] [address] [id number] [place] [id number] Feb, [facility] [place] [address] [id number] [place] [id number] Feb, [facility] [address] [id number] [address] [place] [id number] Feb, [facility] [place] [address] [id number] [place] [id number] January, [facility] [address] [facility] [id number] [address] [place] [phone] January, [facility] [place] [address] [id number] [place] [id number] January, [facility] [place] [address] [id number] [place] [id number] January, [facility] [place] [address] [id number] [place] [id number] January, [facility] [address] [facility] [id number] [address] [place] [phone] Nov, [facility] [address] [facility] [id number] [address] [place] [phone] Nov, [facility] [place] [address] [id number] [place] [id number] Oct, [facility] [place] [address] [id number] [place] [id number] Oct, [facility] [place] [address] [id number] [place] [id number] Oct, [facility] [place] [address] [id number] [place] [id number] Oct, [facility] [address] [id number] [address] [place] [phone] Oct, [facility] [address] [facility] [id number] [address] [place] [phone] Oct, [facility] [place] [address] [id number] [place] [id number] Sep, [facility] [address] [facility] [id number] [address] [place] [phone] Sep, [facility] [place] [address] [id number] [place] [id number] Sep, [facility] [place] [address] [id number] [place] [id number] Sep, [facility] [place] [address] [id number] [place] [id number] Jun, [facility] [address] [id number] [address] [place] [phone] Jun, [facility] [place] [address] [id number] [place] [id number] May, [facility] [place] [address] [id number] [place] [id number] May, [facility] [place] [address] [id number] [place] [id number] Apr, [facility] [place] [address] [id number] [place] [id number] Apr, [facility] [place] [address] [id number] [place] [id number] Apr, [facility] [address] [id number] [place] [id number] Mar, [facility] [address] [id number] [address] [place] [address], [place] [phone] Feb, [facility] [place] [address] [id number] [place] [id number] Nov, [facility] [place] [address] [id number] [place] [id number] Nov, [facility] [place] [address] [facility] [id number] [address] [place] [phone] Nov, [facility] [place] [address] [facility] [id number] [address] [place] [phone] Nov, [facility] [place] [address] [facility] [id number] [address] [place] [phone] Nov, [facility] [address] [facility] [id number] [place] [id number] Nov, [facility] [address] [facility] [id number] [place] [id number] Sep, [facility] [address] [facility] [id number] [place] [id number] Sep, IMMUNIZATIONS No Known Immunizations SOCIAL HISTORY Never Assessed REASON FOR VISIT PLAN OF CARE VITAL SIGNS Height 62 in 2014-08-06 Weight 190 lbs 2014-08-06 Temperature 99.1 degrees Fahrenheit 2014-08-06 Heart Rate 92 bpm 2014-08-06 Respiratory Rate 20 2014-08-06 Blood pressure systolic 110 mmHg 2014-08-06 Blood pressure diastolic 80 mmHg 2014-08-06 MEDICATIONS No Known Medications RESULTS No Results PROCEDURES Procedure Date Ordered Result Body Site COMPLETE CBC W/AUTO DIFF WBC Aug 06, 2014 ASSAY THYROID STIM HORMONE Aug 06, 2014 LIPID PANEL Aug 06, 2014 COMPREHEN METABOLIC PANEL Aug 06, 2014 VENIPUNCT, ROUTINE* Aug 06, 2014 INSTRUCTIONS MEDICATIONS ADMINISTERED No Known Medications MEDICAL [...] [id number] 03/06/2016 Surgical History Hemmroidectomy-Dr. YANG in [place] 2013 Surgical History EGD/Colonoscopy 07/27/18 Hospitalization History surgeries Hospitalization History [facility] for abdominal/chest pain 07/2015 Hospitalization History Inpt for lumbar surgery x's 10 days 02/2015 Hospitalization History Pt was in [facility] home for rehab from surgery, Dx with UTI -03/2016
--- OUTSIDE RECORDS SUMMARY | 2019-09-07 21:24 | XMS REPORT | Encounter Summary ---
Author Author [facility] Organization [facility] Address Unknown Phone Unavailable Care Team Providers Care Laborer [facility] Name Role Phone PCP Unavailable Encounter Details Care Team Description Date Type Department 04/02/2005 [facility] Encounter Social History Date Tobacco Use Types Packs/Day Years Used Never Assessed Sex Assigned at Date Recorded Not on file Industry Job Start Date Occupation Not on file Not on file Not on file Travel End Travel History Travel Start No recent travel history available. documented as of this encounter Plan of Treatment Not on filedocumented as of this encounter Visit Diagnoses Not on filedocumented in this encounter
--- OUTSIDE RECORDS SUMMARY | 2019-09-07 21:24 | XMS REPORT ---
Author Author Paola Lucero [facility] Address [address] [place] [address] Care Team Providers Care [employer] Specialist Name Role Phone YU Lucero Unavailable PROBLEMS Type Condition ICD9-CM Code FAS85-BU Code Onset Dates Condition S tatus SNOMED Code Problem Abnormal MRI, lumbar spine R93.7 Act sung 050431128 Problem Hyperlipemia, mixed E78.2 Active 639940098 Problem Esophageal reflux K21.9 Active 24 2510605 Problem Non-seasonal allergic rhinitis due to pollen J30.1 Active 79354306 Problem COPD (chronic obstructive pulmonary disease) J44.9 Active 05279934 Problem Essential hypertension I10 Active 19343913 Problem Acquired hypothyroidism E03.9 Active 485561287 Problem Neuropathy G62.9 Active 707895151 Problem Chronic fatigue R53.82 Active 5270 2003 ALLERGIES No Information ENCOUNTERS Encounter Location Date Diagnosis [place] [id number] [id number] January, Arthralgia of left temporomandibular shaina nt M26.622 [place] [id number] [place], [place] [address], [place] [id number] January, Essential hypertension I10 ; Neuropathy G62.9 and Edema, unspecified type R60.9 [place] [id number] [id number] Sep, [place] [id number] [place], [place] [address], [employer] [place] [id number] Sep, COPD (chronic obstructive pulmonary dise ase) J44.9 ; Essential hypertension I10 ; Hyperlipemia, mixed E78.2 ; Acquired hypothyroidism E03.9 ; Esophageal reflux K21.9 ; Midline low back pain, unspecified chronicity, with sciatica presence unspecified M54.5 and Michaelle infection B37.[address] [id number] [place] [id number] Sep, Toenail fungus B35.1 [facility] [place] [address] [facility] [id number] [place] [id number] Aug, [facility] [place] [address] [facility] [id number] [place] [id number] Aug, Rhinitis J31.0 [facility] [address] [id number] [id number] Aug, [facility] [place] [address] [facility] [id number] [place] [id number] Aug, [facility] [place] [address] [facility] [id number] [place] [id number] Aug, [facility] [place] [address] [id number][place] [id number] Jul, Urinary tract infection, site not specif ied N39.0 and Dysuria R30.0 [facility] [place] [address] [facility] [id number] [place] [id number] Jun, Acquired hypothyroidism E03.9 ; Hyperlip emia, mixed E78.2 ; Essential hypertension I10 ; Esophageal reflux K21.9 ; COPD (chronic obstructive pulmonary disease) J44.9 ; Ingrown toenail L60.0 ; Foot pain, bilateral M79.671 ; Noncompliance by refusing intervention or support Z53.29 ; Colon cancer screening Z12.11 and Rhinitis J31.0 [facility] [address] [facility] [id number] [place] [id number] Jun, Hyperlipemia, mixed E78.2 [facility] [place] [address] [facility] [id number] [place] [id number] Jun, Hypothyroidism, unspecified type E03.9 ; Hyperlipemia, mixed E78.2 ; Essential hypertension I10 and Encounter for immunization Z23 [facility] [place] [address] [facility] [id number] [place] [id number] Jun, [facility] [place] [address] [facility] [id number] [place] [id number] May, Essential hypertension I10 [facility] [place] [address] [id number] [place] [id number] May, Hypothyroidism, unspecified type E03.9 ; Essential hypertension I10 and Hyperlipemia, mixed E78.2 [facility] [place] [address] [id number] [place] [id number] Apr, [facility] [place] [address] [id number] [place] [id number] Apr, Abnormal mammogram of left breast R92.8 [facility] [place] [address] [id number] [place] [id number] Mar, Abnormal mammogram of left breast R92.8 [facility] [place] [address] [id number] [place] [id number] Mar, [facility] [place] [address] [id number] [place] [id number] Mar, [facility] [address] [facility] [id number] [address] [place] [address] Feb, Sore throat and laryngitis J 06.0 and Strep throat J02.0 [facility] [address] [facility] [id number] [address] [place] [address] Dec, [facility] [place] [address] [id number] [place] [id number] Dec, [facility] [place] [address] [id number] [place] [id number] Dec, Dilated pore of Mk of back L70.8 ; Se borrheic keratoses L82.1 and Non- seasonal allergic rhinitis due to pollen J30.1 [facility] [place] [address] [id number] [place] [id number] Dec, [facility] [place] [address] [id number] [id number] Oct, [facility] [place] [address] [id number] [place] [id number] Oct, Screening breast examination Z12.31 and History of abnormal mammogram Z87.898 [facility] [place] [address] [place] [id number] [place] [id number] Sep, [facility] [place] [address] [id number] [place] [id number] Sep, [facility] [place] [address] [id number] [place] [id number] Sep, [facility] [place] [id number] [place] [address], [place] [id number] Jun, Obesity (BMI 30.0-34.9) E66.9 ; Chronic fatigue R53.82 ; Neuropathy G62.9 ; Essential hypertension I10 and Encounter for immunization Z23 [facility] [id number] [place] [address], [place] [id number] Jun, Neuropathy G62.9 and Essential hypertens ion I10 [facility] [id number] [place] [id number] Apr, [facility] [place] [id number] [place] [address], [place] [id number] Mar, Neuropathy G62.9 ; Hypothyroidism, unspe cified type E03.9 ; Essential hypertension I10 ; Muscle spasm M62.838 and Hyperlipemia, mixed E78.2 [facility] [id number] [place] [id number] Feb, [facility] [place] [id number] [place] [id number] January, [facility] [place] [id number] [place] [id number] Dec, [facility] [place] [id number] [place] [address], [place] [id number] Dec, Hypothyroidism, unspecified type E03.9 [facility] [place] [address] [id number] [place] [id number] Nov, [facility] [place] [id number] [place] [address], [place] [id number] Nov, Neuropathy G62.9 ; Sinus congestion R09. 81 ; Hyperlipemia, mixed E78.2 and Hypothyroidism, unspecified type E03.9 [facility] [place] [address] [place] [id number] [id number] Nov, Neuropathy G62.9 [facility] [place] [address] [facility] [id number] [place] [id number] Nov, Sinus congestion R09.81 and Acquired hyp othyroidism E03.9 [facility] [place] [address] [facility] [id number] [place] [id number] Nov, Acquired hypothyroidism E03.9 [facility] [place] [address] [id number] [place] [id number] Oct, [facility] [place] [address] [facility] [id number] [place] [id number] Oct, Sinus congestion R09.81 and Neuropathy G 62.9 [place] [id number] [place] [id number] Oct, Fever, unspecified R50.9 ; Sinus congest ion R09.81 and Neuropathy G62.9 [place] [address] [id number] [place] [address] Oct, [facility] [place] [address] [place] [address] [id number] [place] [id number] Oct, Abnormal mammogram of left breast R92.8 [place] [id number] [place] [id number] Sep, Abnormal mammogram R92.8 [place] [address] [facility] [id number] [place] [id number] Sep, Acquired hypothyroidism E03.9 [facility] [place] [address] [facility] [id number] [place] [id number] Sep, Hypothyroidism, unspecified type E03.9 ; Hyperlipemia, mixed E78.2 and Essential hypertension I10 [facility] [id number] [place] [id number] Sep, Hypothyroidism, unspecified type E03.9 a nd Hyperlipemia, mixed E78.2 [facility] [place] [address] [place] [address] [id number] [place] [id number] Aug, Acute maxillary sinusitis, recurrence no t specified J01.00 [facility] [place] [address] [id number] [place] [id number] Jul, Hyperlipemia, mixed E78.2 [facility] [place] [address] [id number] [place] [id number] Jul, Acquired hypothyroidism E03.9 ; Hyperlip emia, mixed E78.2 ; Multiple joint pain M25.50 ; Esophageal reflux K21.9 ; Otitis media with effusion, right H65.91 and Essential hypertension I10 [facility] [place] [address] [id number] [place] [id number] Jul, Gastroesophageal reflux disease, esophag itis presence not specified K21.9 [facility] [place] [address] [id number] [place] [id number] May, [facility] [place] [address] [id number] [place] [id number] Apr, Cystitis N30.90 and Well woman exam Z01. 419 [facility] [place] [address] [id number] [place] [id number] Apr, Hematuria R31.9 and Dysuria R30.0 [facility] [place] [address] [id number] [place] [id number] Apr, [facility] [place] [address] [id number] [place] [id number] Apr, Urinary tract infection, site not specif ied N39.0 and Hematuria, unspecified R31.9 [facility] [place] [address] [id number] [place] [id number] Dec, [facility] [place] [address] [id number] [place] [id number] Nov, [facility] [place] [address] [id number] [place] [id number] Oct, Hyperlipemia, mixed E78.2 [facility] [place] [address] [id number] [place] [id number] Oct, Gastroesophageal reflux disease, esophag itis presence not specified K21.9 ; Acute serous otitis media of left ear, recurrence not specified H65.02 ; Hyperlipemia, mixed E78.2 and Hypothyroidism, unspecified type E03.9 [place] [address] [facility] [id number] [place] [id number] Sep, [address] [id number] [place] [id number] Sep, Actinic keratoses L57.0 and Stuffy and r unny nose J34.89 [address]65100[facility], [place] [id number] Aug, [address]65[address], S [id number] Aug, Acute cystitis with hematuria N30.[address] [place] [address], S [id number] Jul, Reflux esophagitis K21.0 ; Acquired defo rmities of toe, 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 ; Multiple joint pain M25.50 and Sinus congestion R09.81 [address], S [id number] Jul, [address], S [id number] Jun, Acute cystitis without hematuria N30.00 ; Dysuria R30.0 ; Flank pain R10.9 and High risk medication use Z79.899 [address]65100[facility], S [id number] Jun, Urinary tract infection N39.0 [facility] [address] [id number] [id number] Jun, [address] [id number] [place] [id number] Jun, Urinary tract infection, site not specif ied 599.0 and Encounter for immunization Z23 [facility] [address] [facility] [id number] [facility] [place] [id number] Jun, [place] [id number] [id number] May, [place] [id number] [id number] Dec, [facility] [address] [facility] [id number] [address] [place] [address], [place] [address] Dec, [facility] [address] [facility] [id number] [address] [place] [address], [place] [address] Dec, [facility] [place] [address] [id number] [place] [id number] Oct, [facility] [address] [id number] [address] [place] [address], [place] [address] Oct, [facility] [place] [address] [id number] [place] [id number] Sep, [facility] [address] [facility] [id number] [address] [place] [address], [place] [address] Sep, [facility] [place] [address] [id number] [place] [id number] Sep, [facility] [address] [facility] [id number] [address] [place] [address], [place] [address] Sep, [facility] [place] [address] [id number] [place] [id number] Aug, [facility] [place] [address] [id number] [place] [id number] Aug, [facility] [address] [facility] [id number] [address] [place] [address], [place] [address] Aug, [facility] [address] [id number] [address] [place] [address], [place] [address] Aug, [facility] [place] [address] [id number] [place] [id number] Aug, [facility] [address] [facility] [id number] [address] [place] [address], [place] [address] Aug, [facility] [place] [address] [id number] [place] [id number] Jul, [facility] [address] [facility] [id number] [address] [place] [address], [place] [address] Jul, [facility] [place] [address] [id number] [place] [id number] Jul, [facility] [address] [id number] [address] [place] [address], [place] [address] Jul, [facility] [place] [address] [id number] [place] [id number] Jul, [facility] [address] [id number] [address] [place] [address], [place] [address] Jul, [facility] [place] [address] [id number] [place] [id number] Jul, [facility] [address] [id number] [address] [place] [address], [place] [address] Jul, [facility] [address] [id number] [address] [place] [address], [place] [address] Jun, [facility] [address] [id number] [address] [place] [address], [place] [address] Jun, [facility] [place] [address] [id number] [place] [id number] Jun, [facility] [address] [id number] [address] [place] [address] Jun, [facility] [address] [id number] [address] [place] [address], [place] [address] Jun, [facility] [place] [address] [id number] [place] [id number] Jun, [facility] [place] [address] [id number] [place] [id number] Jun, [facility] [address] [id number] [address] [place] [address], [place] [address] Jun, [facility] [place] [address] [id number] [place] [id number] Jun, [facility] [address] [id number] [address] [place] [address], [place] [address] Jun, [facility] [place] [address] [id number] [place] [id number] May, [facility] [address] [id number] [facility] [place] [address] May, [facility] [place] [address] [id number] [place] [id number] May, [facility] [address] [id number] [facility] [place] [address] May, [facility] [address] [id number] [facility] [place] [address] Apr, [facility] [address] [id number] [address] [place] [address], [place] [address] Apr, [facility] [place] [address] [id number] [place] [id number] Apr, [facility] [address] [id number] [address] [place] [address], [place] [address] Apr, [facility] [place] [address] [id number] [place] [id number] Mar, [facility] [address] [id number] [address] [place] [address], [place] [address] Mar, [facility] [place] [address] [id number] [place] [id number] Feb, [facility] [address] [id number] [facility] [place] [address] Feb, [facility] [place] [address] [id number] [place] [id number] January, [facility] [address] [id number] [facility] [place] [address] January, [facility] [place] [address] [id number] [place] [id number] January, [facility] [address] [id number] [facility] [place] [address] January, [facility] [place] [address] [id number] [place] [id number] Dec, [facility] [address] [id number] [address] [place] [address], [place] [address] Dec, [facility] [place] [address] [id number] [place] [id number] Dec, [facility] [address] [id number] [address] [place] [address], [place] [address] Dec, [facility] [place] [address] [id number] [place] [id number] Nov, [facility] [address] [id number] [address] [place] [address], [place] [address] Nov, [facility] [address] [id number] [address] [place] [address], [place] [address] Oct, [facility] [address] [facility] [id number] [address] [place] [address], [place] [address] Oct, [facility] [address] [id number] [address] [place] [address], [place] [address] Sep, [facility] [place] [address] [id number] [place] [id number] Sep, [facility] [place] [address] [id number] [place] [id number] Sep, [facility] [address] [id number] [address] [place] [address], [place] [address] Sep, [facility] [place] [address] [id number] [place] [id number] Aug, [facility] [address] [id number] [address] [place] [address], [place] [address] Aug, [facility] [place] [address] [id number] [place] [id number] Jul, [facility] [address] [id number] [address] [place] [address], [place] [address] Jul, [facility] [place] [address] [id number] [place] [id number] Jul, [facility] [address] [id number] [address] [place] [address], [place] [address] Jul, [facility] [place] [address] [id number] [place] [id number] Jul, [facility] [address] [id number] [address] [place] [address], [place] [address] Jul, [facility] [place] [address] [id number] [place] [id number] Jul, [facility] [address] [id number] [address] [place] [address], [place] [address] Jul, [facility] [address] [id number] [address] [place] [address], [place] [address] Jul, [facility] [place] [address] [id number] [place] [id number] Jun, [facility] [address] [id number] [address] [place] [address], [place] [address] Jun, [facility] [place] [address] [id number] [place] [id number] Jun, [facility] [place] [address] [id number] [place] [id number] Jun, [facility] [address] [id number] [address] [place] [address], [place] [address] Jun, [facility] [address] [id number] [address] [place] [address], [place] [address] Jun, [facility] [place] [address] [id number] [place] [id number] Jun, [facility] [address] [id number] [address] [place] [address], [place] [address] Jun, [facility] [address] [id number] [address] [place] [address], [place] [address] Jun, [facility] [place] [address] [id number] [place] [id number] May, [facility] [place] [address] [id number] [place] [id number] May, [facility] [place] [address] [id number] [place] [id number] May, [facility] [place] [address] [id number] [place] [id number] May, [facility] [place] [address] [id number] [place] [id number] Apr, [facility] [place] [address] [id number] [place] [id number] Feb, [facility] [place] [address] [id number] [place] [id number] Feb, [facility] [address] [id number] [address] [place] [phone] Feb, [facility] [place] [address] [id number] [place] [id number] January, [facility] [address] [facility] [id number] [address] [place] [id number] January, [facility] [place] [address] [id number] [place] [id number] January, [facility] [place] [address] [id number] [place] [id number] January, [facility] [place] [address] [id number] [place] [id number] January, [facility] [address] [facility] [id number] [address] [place] [id number] Nov, [facility] [address] [facility] [id number] [address] [place] [phone] Nov, [facility] [place] [address] [id number] [place] [id number] Oct, [facility] [place] [address] [id number] [place] [id number] Oct, [facility] [place] [address] [id number] [place] [id number] Oct, [facility] [place] [address] [id number] [place] [id number] Oct, [facility] [address] [id number] [address] [place] [phone] Oct, [facility] [address] [facility] [id number] [address] [place] [id number] Oct, [facility] [place] [address] [id number] [place] [id number] Sep, [facility] [address] [facility] [id number] [address] [place] [phone] Sep, [facility] [place] [address] [id number] [place] [id number] Sep, [facility] [place] [address] [id number] [place] [id number] Sep, [facility] [place] [address] [id number] [place] [id number] Jun, [facility] [address] [id number] [address] [place] [phone] Jun, [facility] [place] [address] [id number] [place] [id number] May, [facility] [place] [address] [id number] [place] [id number] May, [facility] [place] [address] [id number] [place] [id number] Apr, [facility] [place] [address] [id number] [place] [id number] Apr, [facility] [place] [address] [id number] [place] [id number] Apr, [facility] [place] [address] [id number] [place] [id number] Mar, [facility] [address] [id number] [address] [place] [address], [place] [address] Feb, [facility] [place] [address] [id number] [place] [id number] Nov, [facility] [place] [address] [id number] [place] [id number] Nov, [facility] [address] [facility] [id number] [address] [place] [phone] Nov, [facility] [address] [facility] [id number] [address] [place] [id number] Nov, [facility] [address] [facility] [id number] [address] [place] [id number] Nov, [facility] [address] [facility] [id number] [place] [id number] Nov, [facility] [address] [facility] [id number] [place] [id number] Sep, [facility] [address] [facility] [id number] [place] [id number] Sep, IMMUNIZATIONS No Known Immunizations SOCIAL HISTORY [...] [id number] 03/06/2016 Surgical History Hemmroidectomy-Dr. YANG in [place] 2013 Surgical History EGD/Colonoscopy 07/27/18 Hospitalization History surgeries Hospitalization History [facility] for abdominal/chest pain 07/2015 Hospitalization History Inpt for lumbar surgery x's 10 days 02/2015 Hospitalization History Pt was in [facility] home for rehab from surgery, Dx with UTI
--- OUTSIDE RECORDS SUMMARY | 2019-09-07 21:24 | XMS REPORT | Clinical Summary ---
Author Author [facility] Organization [facility] Address Unknown Phone Unavailable Care Team Providers Care Felt Checker Name Role Phone PCP Unavailable Allergies Not on File Medications Not on file Active Problems Not on file Social History Date Tobacco Use Types Packs/Day Years Used Never Assessed Sex Assigned at Date Recorded Not on file Industry Job Start Date Occupation Not on file Not on file Not on file Travel End Travel History Travel Start No recent travel history available. Last Filed Vital Signs Not on file Plan of Treatment Not on file Results Not on filefrom Last 3 Months
--- OUTSIDE RECORDS SUMMARY | 2019-09-07 21:24 | XMS REPORT | Clinical Summary ---
Author Author [facility] Organization [facility] Address Unknown Phone Unavailable Care Team Providers Care Film Splicer Name Role Phone Caren Colon Unavailable Unavailable Janae Lucas Unavailable Unavailable Leanna Cristobal RN Unavailable Unavailable No Pcp, Na Unavailable Unavailable Source Comments Some departments are not documenting in the electronic medical record. If you d o not see the information that you expected, contact Release of Information in [facility] Information Management department at [phone] for further assistan ce in locating additional records.[facility] Allergies Comments Active Allergy Reactions Severity Noted Date Allergy recorded in SMS: Amoxicillin~Reactions: HIVES Amoxicillin 02/01/2003 Allergy recorded in SMS: Biaxin~Reactions: HIVES~HIVES/BLISTERS Clarithromycin 02/01/2003 Allergy recorded in SMS: TOPICAL IODINE~Reactions: HIVES~HIVES/BLISTERS Iodine 02/01/2003 Allergy recorded in SMS: PCN~Reactions: HIVES Penicillins High 02/01/2003 Medications Not on file Active Problems Not [...] Last Done Comments HEPATITIS C SCREENING 1949 MEDICARE ANNUAL WELLNESS 1949 VISIT DTAP/TDAP VACCINES (1 - 1960 Tdap) PHYSICAL (COMPREHENSIVE) 1967 EXAM BREAST CANCER SCREENING 1989 COLORECTAL CANCER 1999 SCREENING SHINGLES RECOMBINANT 1999 VACCINE (1 of 2) OSTEOPOROSIS 2014 SCREENING/MONITORING PNEUMONIA (PCV13/PPSV23) 2014 VACCINES (1 of 2 - PCV13) INFLUENZA VACCINE 04/13/2019 Results Not on filefrom Last 3 Months Insurance Type Payer Benefit Subscriber ID Effective Phone Address Plan / Dates Group Medicare MEDICARE MEDICARE xxxxxxxxxx [id number] PART A AND resent B Advance Directives Patient Tray Server Explanation Type Date Recorded Advance 07/26/2014 4:23 PM Directive/DPOA
--- OUTSIDE RECORDS SUMMARY | 2019-09-07 21:25 | XMS REPORT ---
Author Author Paola Lucero [facility] Address [address] [place] [address] Care Team Providers Care Channel Cementer Name Role Phone YU Lucero Unavailable PROBLEMS Type Condition ICD9-CM Code IHN27-HD Code Onset Dates Condition S tatus SNOMED Code Problem Abnormal MRI, lumbar spine R93.7 Act sung 734955574 Problem Hyperlipemia, mixed E78.2 Active 838525868 Problem Esophageal reflux K21.9 Active 24 7279873 Problem Non-seasonal allergic rhinitis due to pollen J30.1 Active 87093473 Problem COPD (chronic obstructive pulmonary disease) J44.9 Active 07088121 Problem Essential hypertension I10 Active 52714405 Problem Acquired hypothyroidism E03.9 Active 322490871 Problem Neuropathy G62.9 Active 977281380 Problem Chronic fatigue R53.82 Active 5270 2003 ALLERGIES No Information ENCOUNTERS Encounter Location Date Diagnosis [place] [id number] [place] [id number] January, Arthralgia of left temporomandibular shaina nt M26.622 [address] [id number] [place], [place] [address], [place] [id number] January, Essential hypertension I10 ; Neuropathy G62.9 and Edema, unspecified type R60.9 [place] [id number] [employer] [id number] Sep, [place] [id number] [place], [place] [address], [employer] [place] [id number] Sep, COPD (chronic obstructive pulmonary dise ase) J44.9 ; Essential hypertension I10 ; Hyperlipemia, mixed E78.2 ; Acquired hypothyroidism E03.9 ; Esophageal reflux K21.9 ; Midline low back pain, unspecified chronicity, with sciatica presence unspecified M54.5 and Michaelle infection B37.[address] [id number] [place] [id number] Sep, Toenail fungus B35.1 [facility] [place] [address] [facility] [id number] [place] [id number] Aug, [facility] [place] [address] [facility] [id number] [place] [id number] Aug, Rhinitis J31.0 [facility] [address] [id number] [id number] Aug, [facility] [place] [address] [facility] [id number] [place] [id number] Aug, [facility] [place] [address] [facility] [id number] [place] [id number] Aug, [facility] [place] [address] [facility] [address] [id number] [id number] Jul, Urinary tract infection, site not specif ied N39.0 and Dysuria R30.0 [facility] [place] [address] [facility] [id number] [place] [id number] Jun, Acquired hypothyroidism E03.9 ; Hyperlip emia, mixed E78.2 ; Essential hypertension I10 ; Esophageal reflux K21.9 ; COPD (chronic obstructive pulmonary disease) J44.9 ; Ingrown toenail L60.0 ; Foot pain, bilateral M79.671 ; Noncompliance by refusing intervention or support Z53.29 ; Colon cancer screening Z12.11 and Rhinitis J31.0 [facility] [address] [facility] [id number] [place] [id number] Jun, Hyperlipemia, mixed E78.2 [facility] [place] [address] [facility] [id number] [place] [id number] Jun, Hypothyroidism, unspecified type E03.9 ; Hyperlipemia, mixed E78.2 ; Essential hypertension I10 and Encounter for immunization Z23 [facility] [place] [address] [facility] [id number] [place] [id number] Jun, [facility] [place] [address] [facility] [id number] [place] [id number] May, Essential hypertension I10 [facility] [place] [address] [id number] [place] [id number] May, Hypothyroidism, unspecified type E03.9 ; Essential hypertension I10 and Hyperlipemia, mixed E78.2 [facility] [place] [address] [id number] [place] [id number] Apr, [facility] [place] [address] [id number] [place] [id number] Apr, Abnormal mammogram of left breast R92.8 [facility] [place] [address] [id number] [place] [id number] Mar, Abnormal mammogram of left breast R92.8 [facility] [place] [address] [id number] [place] [id number] Mar, [facility] [place] [address] [id number] [place] [id number] Mar, [facility] [address] [facility] [id number] [address] [place] [address] Feb, Sore throat and laryngitis J 06.0 and Strep throat J02.0 [facility] [address] [facility] [id number] [address] [place] [address] Dec, [facility] [place] [address] [id number] [place] [id number] Dec, [facility] [place] [address] [id number] [place] [id number] Dec, Dilated pore of Mk of back L70.8 ; Se borrheic keratoses L82.1 and Non- seasonal allergic rhinitis due to pollen J30.1 [facility] [place] [address] [id number] [place] [id number] Dec, [facility] [address] [facility] [address] [id number] [id number] Oct, [facility] [place] [address] [id number] [place] [id number] Oct, Screening breast examination Z12.31 and History of abnormal mammogram Z87.898 [facility] [place] [address] [id number] [place] [id number] Sep, [facility] [place] [address] [id number] [place] [id number] Sep, [facility] [place] [address] [id number] [place] [id number] Sep, [facility] [place] [id number] [place] [address], [place] [id number] Jun, Obesity (BMI 30.0-34.9) E66.9 ; Chronic fatigue R53.82 ; Neuropathy G62.9 ; Essential hypertension I10 and Encounter for immunization Z23 [facility] [id number] [place] [address], [place] [id number] Jun, Neuropathy G62.9 and Essential hypertens ion I10 [facility] [id number] [place] [id number] Apr, [facility] [place] [id number] [place] [address], [place] [id number] Mar, Neuropathy G62.9 ; Hypothyroidism, unspe cified type E03.9 ; Essential hypertension I10 ; Muscle spasm M62.838 and Hyperlipemia, mixed E78.2 [facility] [id number] [place] [id number] Feb, [facility] [place] [id number] [place] [id number] January, [facility] [place] [id number] [place] [id number] Dec, [facility] [place] [id number] [place] [address], [place] [id number] Dec, Hypothyroidism, unspecified type E03.9 [facility] [place] [address] [id number] [place] [id number] Nov, [facility] [place] [id number] [place] [address], [place] [id number] Nov, Neuropathy G62.9 ; Sinus congestion R09. 81 ; Hyperlipemia, mixed E78.2 and Hypothyroidism, unspecified type E03.9 [facility] [place] [address] [place] [address] [id number] [id number] Nov, Neuropathy G62.9 [facility] [place] [address] [facility] [id number] [place] [id number] Nov, Sinus congestion R09.81 and Acquired hyp othyroidism E03.9 [facility] [place] [address] [facility] [id number] [place] [id number] Nov, Acquired hypothyroidism E03.9 [facility] [place] [address] [id number] [place] [id number] Oct, [facility] [place] [address] [facility] [id number] [place] [id number] Oct, Sinus congestion R09.81 and Neuropathy G 62.9 [place] [id number] [place] [id number] Oct, Fever, unspecified R50.9 ; Sinus congest ion R09.81 and Neuropathy G62.9 [place] [address] [id number] [place] [address] Oct, [facility] [place] [address] [id number] [place] [id number] Oct, Abnormal mammogram of left breast R92.8 [place] [id number] [place] [id number] Sep, Abnormal mammogram R92.8 [place] [address] [facility] [id number] [place] [id number] Sep, Acquired hypothyroidism E03.9 [facility] [place] [address] [facility] [id number] [place] [id number] Sep, Hypothyroidism, unspecified type E03.9 ; Hyperlipemia, mixed E78.2 and Essential hypertension I10 [facility] [id number] [place] [id number] Sep, Hypothyroidism, unspecified type E03.9 a nd Hyperlipemia, mixed E78.2 [facility] [place] [address] [id number] [place] [id number] Aug, Acute maxillary sinusitis, recurrence no t specified J01.00 [facility] [place] [address] [id number] [place] [id number] Jul, Hyperlipemia, mixed E78.2 [facility] [place] [address] [id number] [place] [id number] Jul, Acquired hypothyroidism E03.9 ; Hyperlip emia, mixed E78.2 ; Multiple joint pain M25.50 ; Esophageal reflux K21.9 ; Otitis media with effusion, right H65.91 and Essential hypertension I10 [facility] [place] [address] [id number] [place] [id number] Jul, Gastroesophageal reflux disease, esophag itis presence not specified K21.9 [facility] [place] [address] [id number] [place] [id number] May, [facility] [place] [address] [id number] [place] [id number] Apr, Cystitis N30.90 and Well woman exam Z01. 419 [facility] [place] [address] [id number] [place] [id number] Apr, Hematuria R31.9 and Dysuria R30.0 [facility] [place] [address] [id number] [place] [id number] Apr, [facility] [place] [address] [id number] [place] [id number] Apr, Urinary tract infection, site not specif ied N39.0 and Hematuria, unspecified R31.9 [facility] [place] [address] [id number] [place] [id number] Dec, [facility] [place] [address] [id number] [place] [id number] Nov, [facility] [place] [address] [id number] [place] [id number] Oct, Hyperlipemia, mixed E78.2 [facility] [place] [address] [id number] [place] [id number] Oct, Gastroesophageal reflux disease, esophag itis presence not specified K21.9 ; Acute serous otitis media of left ear, recurrence not specified H65.02 ; Hyperlipemia, mixed E78.2 and Hypothyroidism, unspecified type E03.9 [place] [address] [facility] [id number] [place] [id number] Sep, [address] [id number] [place] [id number] Sep, Actinic keratoses L57.0 and Stuffy and r unny nose J34.[address]65100[facility], [place] [id number] Aug, [address]00565100[facility], [place] [id number] Aug, Acute cystitis with hematuria N30.[address] [place] [address], S [id number] Jul, Reflux esophagitis K21.0 ; Acquired defo rmities of toe, 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 ; Multiple joint pain M25.50 and Sinus congestion R09.[address]00565100[facility], [place] [id number] Jul, [address]65100[facility], [place] [id number] Jun, Acute cystitis without hematuria N30.00 ; Dysuria R30.0 ; Flank pain R10.9 and High risk medication use Z79.8[address]65100[facility], [place] [id number] Jun, Urinary tract infection N39.0 [facility] [address] [id number] [id number] Jun, [address] [id number] [place] [id number] Jun, Urinary tract infection, site not specif ied 599.0 and Encounter for immunization Z23 [facility] [address] [facility] [id number] [facility] [place] [id number] Jun, [place] [id number] [id number] May, [place] [id number] [place] [id number] Dec, [facility] [address] [facility] [id number] [address] [place] [address], [place] [address] Dec, [facility] [address] [facility] [id number] [address] [place] [address], [place] [address] Dec, [facility] [place] [address] [id number] [place] [id number] Oct, [facility] [address] [id number] [address] [place] [address], [place] [address] Oct, [facility] [place] [address] [id number] [place] [id number] Sep, [facility] [address] [facility] [id number] [address] [place] [address], [place] [address] Sep, [facility] [place] [address] [id number] [place] [id number] Sep, [facility] [address] [facility] [id number] [address] [place] [address], [place] [address] Sep, [facility] [place] [address] [id number] [place] [id number] Aug, [facility] [place] [address] [id number] [place] [id number] Aug, [facility] [address] [facility] [id number] [address] [place] [address], [place] [address] Aug, [facility] [address] [id number] [address] [place] [address], [place] [address] Aug, [facility] [place] [address] [id number] [place] [id number] Aug, [facility] [address] [facility] [id number] [address] [place] [address], [place] [address] Aug, [facility] [place] [address] [id number] [place] [id number] Jul, [facility] [address] [facility] [id number] [address] [place] [address], [place] [address] Jul, [facility] [place] [address] [id number] [place] [id number] Jul, [facility] [address] [id number] [address] [place] [address], [place] [address] Jul, [facility] [place] [address] [id number] [place] [id number] Jul, [facility] [address] [id number] [address] [place] [address], [place] [address] Jul, [facility] [place] [address] [id number] [place] [id number] Jul, [facility] [address] [id number] [address] [place] [address], [place] [address] Jul, [facility] [address] [id number] [address] [place] [address], [place] [address] Jun, [facility] [address] [id number] [address] [place] [address], [place] [address] Jun, [facility] [place] [address] [id number] [place] [id number] Jun, [facility] [address] [id number] [address] [place] [address] Jun, [facility] [address] [id number] [address] [place] [address], [place] [address] Jun, [facility] [place] [address] [id number] [place] [id number] Jun, [facility] [place] [address] [id number] [place] [id number] Jun, [facility] [address] [id number] [address] [place] [address], [place] [address] Jun, [facility] [place] [address] [id number] [place] [id number] Jun, [facility] [address] [id number] [address] [place] [address], [place] [address] Jun, [facility] [place] [address] [id number] [place] [id number] May, [facility] [address] [id number] [facility] [place] [address] May, [facility] [place] [address] [id number] [place] [id number] May, [facility] [address] [id number] [facility] [place] [address] May, [facility] [address] [id number] [facility] [place] [address] Apr, [facility] [address] [id number] [address] [place] [address], [place] [address] Apr, [facility] [place] [address] [id number] [place] [id number] Apr, [facility] [address] [id number] [address] [place] [address], [place] [address] Apr, [facility] [place] [address] [id number] [place] [id number] Mar, [facility] [address] [id number] [address] [place] [address], [place] [address] Mar, [facility] [place] [address] [id number] [place] [id number] Feb, [facility] [address] [id number] [facility] [place] [address] Feb, [facility] [place] [address] [id number] [place] [id number] January, [facility] [address] [id number] [facility] [place] [address] January, [facility] [place] [address] [id number] [place] [id number] January, [facility] [address] [id number] [facility] [place] [address] January, [facility] [place] [address] [id number] [place] [id number] Dec, [facility] [address] [id number] [address] [place] [address], [place] [address] Dec, [facility] [place] [address] [id number] [place] [id number] Dec, [facility] [address] [id number] [address] [place] [address], [place] [address] Dec, [facility] [place] [address] [id number] [place] [id number] Nov, [facility] [address] [id number] [address] [place] [address], [place] [address] Nov, [facility] [address] [id number] [address] [place] [address], [place] [address] Oct, [facility] [address] [facility] [id number] [address] [place] [address], [place] [address] Oct, [facility] [address] [id number] [address] [place] [address], [place] [address] Sep, [facility] [place] [address] [id number] [place] [id number] Sep, [facility] [place] [address] [id number] [place] [id number] Sep, [facility] [address] [id number] [address] [place] [address], [place] [address] Sep, [facility] [place] [address] [id number] [place] [id number] Aug, [facility] [address] [id number] [address] [place] [address], [place] [address] Aug, [facility] [place] [address] [id number] [place] [id number] Jul, [facility] [address] [id number] [address] [place] [address], [place] [address] Jul, [facility] [place] [address] [id number] [place] [id number] Jul, [facility] [address] [id number] [address] [place] [address], [place] [address] Jul, [facility] [place] [address] [id number] [place] [id number] Jul, [facility] [address] [id number] [address] [place] [address], [place] [address] Jul, [facility] [place] [address] [id number] [place] [id number] Jul, [facility] [address] [id number] [address] [place] [address], [place] [address] Jul, [facility] [address] [id number] [address] [place] [address], [place] [address] Jul, [facility] [place] [address] [id number] [place] [id number] Jun, [facility] [address] [id number] [address] [place] [address], [place] [address] Jun, [facility] [place] [address] [id number] [place] [id number] Jun, [facility] [place] [address] [id number] [place] [id number] Jun, [facility] [address] [id number] [address] [place] [address], [place] [address] Jun, [facility] [address] [id number] [address] [place] [address], [place] [address] Jun, [facility] [place] [address] [id number] [place] [id number] Jun, [facility] [address] [id number] [address] [place] [address], [place] [address] Jun, [facility] [address] [id number] [address] [place] [address], [place] [address] Jun, [facility] [place] [address] [id number] [place] [id number] May, [facility] [place] [address] [id number] [place] [id number] May, [facility] [place] [address] [id number] [place] [id number] May, [facility] [place] [address] [id number] [place] [id number] May, [facility] [place] [address] [id number] [place] [id number] Apr, [facility] [place] [address] [id number] [place] [id number] Feb, [facility] [place] [address] [id number] [place] [id number] Feb, [facility] [address] [id number] [address] [place] [id number] Feb, [facility] [place] [address] [id number] [place] [id number] January, [facility] [address] [facility] [id number] [address] [place] [address] January, [facility] [place] [address] [id number] [place] [id number] January, [facility] [place] [address] [id number] [place] [id number] January, [facility] [place] [address] [id number] [place] [id number] January, [facility] [address] [facility] [id number] [address] [place] [id number] Nov, [facility] [address] [facility] [id number] [address] [place] [id number] Nov, [facility] [place] [address] [id number] [place] [id number] Oct, [facility] [place] [address] [id number] [place] [id number] Oct, [facility] [place] [address] [id number] [place] [id number] Oct, [facility] [place] [address] [id number] [place] [id number] Oct, [facility] [address] [id number] [address] [place] [id number] Oct, [facility] [address] [facility] [id number] [address] [place] [id number] Oct, [facility] [place] [address] [id number] [place] [id number] Sep, [facility] [address] [facility] [id number] [address] [place] [address] Sep, [facility] [place] [address] [id number] [place] [id number] Sep, [facility] [place] [address] [id number] [place] [id number] Sep, [facility] [place] [address] [id number] [place] [id number] Jun, [facility] [address] [id number] [address] [place] [id number] Jun, [facility] [place] [address] [id number] [place] [id number] May, [facility] [place] [address] [id number] [place] [id number] May, [facility] [place] [address] [id number] [place] [id number] Apr, [facility] [place] [address] [id number] [place] [id number] Apr, [facility] [place] [address] [id number] [place] [id number] Apr, [facility] [place] [address] [id number] [place] [id number] Mar, [facility] [address] [id number] [address] [place] [address], [place] [id number] Feb, [facility] [place] [address] [id number] [place] [id number] Nov, [facility] [place] [address] [id number] [place] [id number] Nov, [facility] [address] [facility] [id number] [address] [place] [address] Nov, [facility] [address] [facility] [id number] [address] [place] [id number] Nov, [facility] [address] [facility] [id number] [address] [place] [id number] Nov, [facility] [address] [facility] [id number] [place] [id number] Nov, [facility] [address] [facility] [id number] [place] [id number] Sep, [facility] [address] [facility] [id number] [place] [id number] Sep, IMMUNIZATIONS No Known Immunizations SOCIAL HISTORY [...] [id number] 03/06/2016 Surgical History Hemmroidectomy-Dr. YANG in [place] 2013 Surgical History EGD/Colonoscopy 07/27/18 Hospitalization History surgeries Hospitalization History [facility] for abdominal/chest pain 07/2015 Hospitalization History Inpt for lumbar surgery x's 10 days 02/2015 Hospitalization History Pt was in [facility] home for rehab from surgery, Dx with UTI
--- OUTSIDE RECORDS SUMMARY | 2019-09-07 21:25 | XMS REPORT ---
Author Author Paola Lucero [facility] Address [address] [place] [address] Care Team Providers Care Habitat Biologist Name Role Phone YU Lucero Unavailable PROBLEMS Type Condition ICD9-CM Code SSE31-LO Code Onset Dates Condition S tatus SNOMED Code Problem Abnormal MRI, lumbar spine R93.7 Act sung 658122642 Problem Hyperlipemia, mixed E78.2 Active 065561201 Problem Esophageal reflux K21.9 Active 24 4266596 Problem Non-seasonal allergic rhinitis due to pollen J30.1 Active 80560881 Problem COPD (chronic obstructive pulmonary disease) J44.9 Active 33606797 Problem Essential hypertension I10 Active 22699788 Problem Acquired hypothyroidism E03.9 Active 095239510 Problem Neuropathy G62.9 Active 467439308 Problem Chronic fatigue R53.82 Active 5270 2003 ALLERGIES No Information ENCOUNTERS Encounter Location Date Diagnosis [place] [id number] [id number] January, Arthralgia of left temporomandibular shaina nt M26.622 [place] [id number] [place], [place] [address], [place] [id number] January, Essential hypertension I10 ; Neuropathy G62.9 and Edema, unspecified type R60.9 [place] [id number] [id number] Sep, [place] [id number] [place], [place] [address], [employer] [place] [id number] Sep, COPD (chronic obstructive pulmonary dise ase) J44.9 ; Essential hypertension I10 ; Hyperlipemia, mixed E78.2 ; Acquired hypothyroidism E03.9 ; Esophageal reflux K21.9 ; Midline low back pain, unspecified chronicity, with sciatica presence unspecified M54.5 and Michaelle infection B37.[address] [id number] [place] [id number] Sep, Toenail fungus B35.1 [facility] [place] [address] [facility] [id number] [place] [id number] Aug, [facility] [place] [address] [facility] [id number] [place] [id number] Aug, Rhinitis J31.0 [facility] [place] [address] [id number] [id number] Aug, [facility] [place] [address] [facility] [id number] [place] [id number] Aug, [facility] [place] [address] [facility] [id number] [place] [id number] Aug, [facility] [place] [address] [facility] [address] [id number] [id number] Jul, Urinary tract infection, site not specif ied N39.0 and Dysuria R30.0 [facility] [place] [address] [facility] [id number] [place] [id number] Jun, Acquired hypothyroidism E03.9 ; Hyperlip emia, mixed E78.2 ; Essential hypertension I10 ; Esophageal reflux K21.9 ; COPD (chronic obstructive pulmonary disease) J44.9 ; Ingrown toenail L60.0 ; Foot pain, bilateral M79.671 ; Noncompliance by refusing intervention or support Z53.29 ; Colon cancer screening Z12.11 and Rhinitis J31.0 [facility] [address] [facility] [id number] [place] [id number] Jun, Hyperlipemia, mixed E78.2 [facility] [place] [address] [facility] [id number] [place] [id number] Jun, Hypothyroidism, unspecified type E03.9 ; Hyperlipemia, mixed E78.2 ; Essential hypertension I10 and Encounter for immunization Z23 [facility] [place] [address] [facility] [id number] [place] [id number] Jun, [facility] [place] [address] [facility] [id number] [place] [id number] May, Essential hypertension I10 [facility] [place] [address] [id number] [place] [id number] May, Hypothyroidism, unspecified type E03.9 ; Essential hypertension I10 and Hyperlipemia, mixed E78.2 [facility] [place] [address] [id number] [place] [id number] Apr, [facility] [place] [address] [id number] [place] [id number] Apr, Abnormal mammogram of left breast R92.8 [facility] [place] [address] [id number] [place] [id number] Mar, Abnormal mammogram of left breast R92.8 [facility] [place] [address] [id number] [place] [id number] Mar, [facility] [place] [address] [id number] [place] [id number] Mar, [facility] [address] [facility] [id number] [address] [place] [id number] Feb, Sore throat and laryngitis J 06.0 and Strep throat J02.0 [facility] [address] [facility] [id number] [address] [place] [id number] Dec, [facility] [place] [address] [id number] [place] [id number] Dec, [facility] [place] [address] [id number] [place] [id number] Dec, Dilated pore of Mk of back L70.8 ; Se borrheic keratoses L82.1 and Non- seasonal allergic rhinitis due to pollen J30.1 [facility] [place] [address] [id number] [place] [id number] Dec, [facility] [place] [address] [facility] [address] [id number][place] [id number] Oct, [facility] [place] [address] [id number] [place] [id number] Oct, Screening breast examination Z12.31 and History of abnormal mammogram Z87.898 [facility] [place] [address] [place] [id number] [place] [id number] Sep, [facility] [place] [address] [place] [id number] [place] [id number] Sep, [facility] [place] [address] [place] [id number] [place] [id number] Sep, [facility] [place] [address] [place] [id number] [place] [address], [place] [id number] Jun, Obesity (BMI 30.0-34.9) E66.9 ; Chronic fatigue R53.82 ; Neuropathy G62.9 ; Essential hypertension I10 and Encounter for immunization Z23 [facility] [address] [place] [id number] [place] [address], [place] [id number] Jun, Neuropathy G62.9 and Essential hypertens ion I10 [facility] [id number] [place] [id number] Apr, [facility] [place] [address] [place] [id number] [place] [address], [place] [id number] Mar, Neuropathy G62.9 ; Hypothyroidism, unspe cified type E03.9 ; Essential hypertension I10 ; Muscle spasm M62.838 and Hyperlipemia, mixed E78.2 [facility] [id number] [place] [id number] Feb, [facility] [place] [id number] [place] [id number] January, [facility] [place] [id number] [place] [id number] Dec, [facility] [place] [address] [place] [id number] [place] [address], [place] [id number] Dec, Hypothyroidism, unspecified type E03.9 [facility] [place] [address] [place] [id number] [place] [id number] Nov, [facility] [place] [address] [place] [id number] [place] [address], [place] [id number] Nov, Neuropathy G62.9 ; Sinus congestion R09. 81 ; Hyperlipemia, mixed E78.2 and Hypothyroidism, unspecified type E03.9 [facility] [place] [address] [place] [id number] [id number] Nov, Neuropathy G62.9 [facility] [place] [address] [facility] [id number] [place] [id number] Nov, Sinus congestion R09.81 and Acquired hyp othyroidism E03.9 [facility] [place] [address] [facility] [id number] [place] [id number] Nov, Acquired hypothyroidism E03.9 [facility] [place] [address] [id number] [place] [id number] Oct, [facility] [place] [address] [facility] [id number] [place] [id number] Oct, Sinus congestion R09.81 and Neuropathy G 62.9 [place] [id number] [place] [id number] Oct, Fever, unspecified R50.9 ; Sinus congest ion R09.81 and Neuropathy G62.9 [place] [address] [id number] [address] Oct, [facility] [place] [address] [place] [id number] [place] [id number] Oct, Abnormal mammogram of left breast R92.8 [place] [id number] [place] [id number] Sep, Abnormal mammogram R92.8 [place] [address] [facility] [id number] [place] [id number] Sep, Acquired hypothyroidism E03.9 [facility] [place] [address] [facility] [id number] [place] [id number] Sep, Hypothyroidism, unspecified type E03.9 ; Hyperlipemia, mixed E78.2 and Essential hypertension I10 [facility] [id number] [place] [id number] Sep, Hypothyroidism, unspecified type E03.9 a nd Hyperlipemia, mixed E78.2 [facility] [place] [address] [place] [id number] [place] [id number] Aug, Acute maxillary sinusitis, recurrence no t specified J01.00 [facility] [place] [address] [id number] [place] [id number] Jul, Hyperlipemia, mixed E78.2 [facility] [place] [address] [id number] [place] [id number] Jul, Acquired hypothyroidism E03.9 ; Hyperlip emia, mixed E78.2 ; Multiple joint pain M25.50 ; Esophageal reflux K21.9 ; Otitis media with effusion, right H65.91 and Essential hypertension I10 [facility] [place] [address] [id number] [place] [id number] Jul, Gastroesophageal reflux disease, esophag itis presence not specified K21.9 [facility] [place] [address] [id number] [place] [id number] May, [facility] [place] [address] [id number] [place] [id number] Apr, Cystitis N30.90 and Well woman exam Z01. 419 [facility] [place] [address] [id number] [place] [id number] Apr, Hematuria R31.9 and Dysuria R30.0 [facility] [place] [address] [id number] [place] [id number] Apr, [facility] [place] [address] [id number] [place] [id number] Apr, Urinary tract infection, site not specif ied N39.0 and Hematuria, unspecified R31.9 [facility] [place] [address] [id number] [place] [id number] Dec, [facility] [place] [address] [id number] [place] [id number] Nov, [facility] [place] [address] [id number] [place] [id number] Oct, Hyperlipemia, mixed E78.2 [facility] [place] [address] [id number] [place] [id number] Oct, Gastroesophageal reflux disease, esophag itis presence not specified K21.9 ; Acute serous otitis media of left ear, recurrence not specified H65.02 ; Hyperlipemia, mixed E78.2 and Hypothyroidism, unspecified type E03.9 [place] [address] [facility] [id number] [place] S [id number] Sep, [address] [id number] [place] [id number] Sep, Actinic keratoses L57.0 and Stuffy and r unny nose J34.[address], [place] [id number] Aug, [address]65[address], S [id number] Aug, Acute cystitis with hematuria N30.[address] [place] [address], S [id number] Jul, Reflux esophagitis K21.0 ; Acquired defo rmities of toe, 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 ; Multiple joint pain M25.50 and Sinus congestion R09.[address], [place] [id number] Jul, [address], S [id number] Jun, Acute cystitis without hematuria N30.00 ; Dysuria R30.0 ; Flank pain R10.9 and High risk medication use Z79.899 [address], S [id number] Jun, Urinary tract infection N39.0 [facility] [address] [address] [id number] [id number] Jun, [address] [id number] [place] [id number] Jun, Urinary tract infection, site not specif ied 599.0 and Encounter for immunization Z23 [facility] [place] [address] [facility] [id number] [facility] [place] [id number] Jun, [place] [id number], [place] [id number] May, [place] [id number] [place] [id number] Dec, [facility] [address] [facility] [id number] [address] [place] [address], [place] [address] Dec, [facility] [address] [facility] [id number] [address] [place] [address], [place] [address] Dec, [facility] [place] [address] [id number] [place] [id number] Oct, [facility] [address] [id number] [address] [place] [address], [place] [address] Oct, [facility] [place] [address] [id number] [place] [id number] Sep, [facility] [address] [facility] [id number] [address] [place] [address], [place] [address] Sep, [facility] [place] [address] [id number] [place] [id number] Sep, [facility] [address] [facility] [id number] [address] [place] [address], [place] [address] Sep, [facility] [place] [address] [id number] [place] [id number] Aug, [facility] [place] [address] [id number] [place] [id number] Aug, [facility] [address] [facility] [id number] [address] [place] [address], [place] [address] Aug, [facility] [address] [id number] [address] [place] [address], [place] [address] Aug, [facility] [place] [address] [id number] [place] [id number] Aug, [facility] [address] [facility] [id number] [address] [place] [address], [place] [address] Aug, [facility] [place] [address] [id number] [place] [id number] Jul, [facility] [address] [facility] [id number] [address] [place] [address], [place] [address] Jul, [facility] [place] [address] [id number] [place] [id number] Jul, [facility] [address] [id number] [address] [place] [address], [place] [address] Jul, [facility] [place] [address] [id number] [place] [id number] Jul, [facility] [address] [id number] [address] [place] [address], [place] [address] Jul, [facility] [place] [address] [id number] [place] [id number] Jul, [facility] [address] [id number] [address] [place] [address], [place] [address] Jul, [facility] [address] [id number] [address] [place] [address], [place] [address] Jun, [facility] [address] [id number] [address] [place] [address], [place] [address] Jun, [facility] [place] [address] [id number] [place] [id number] Jun, [facility] [address] [id number] [address] [place] [id number] Jun, [facility] [address] [id number] [address] [place] [address], [place] [address] Jun, [facility] [place] [address] [id number] [place] [id number] Jun, [facility] [place] [address] [id number] [place] [id number] Jun, [facility] [address] [id number] [address] [place] [address], [place] [address] Jun, [facility] [place] [address] [id number] [place] [id number] Jun, [facility] [address] [id number] [address] [place] [address], [place] [address] Jun, [facility] [place] [address] [id number] [place] [id number] May, [facility] [address] [id number] [facility] [place] [address] May, [facility] [place] [address] [id number] [place] [id number] May, [facility] [address] [id number] [facility] [place] [address] May, [facility] [address] [id number] [facility] [place] [address] Apr, [facility] [address] [id number] [address] [place] [address], [place] [address] Apr, [facility] [place] [address] [id number] [place] [id number] Apr, [facility] [address] [id number] [address] [place] [address], [place] [address] Apr, [facility] [place] [address] [id number] [place] [id number] Mar, [facility] [address] [id number] [address] [place] [address], [place] [address] Mar, [facility] [place] [address] [id number] [place] [id number] Feb, [facility] [address] [id number] [facility] [place] [address] Feb, [facility] [place] [address] [id number] [place] [id number] January, [facility] [address] [id number] [facility] [place] [address] January, [facility] [place] [address] [id number] [place] [id number] January, [facility] [address] [id number] [facility] [place] [address] January, [facility] [place] [address] [id number] [place] [id number] Dec, [facility] [address] [id number] [address] [place] [address], [place] [address] Dec, [facility] [place] [address] [id number] [place] [id number] Dec, [facility] [address] [id number] [address] [place] [address], [place] [address] Dec, [facility] [place] [address] [id number] [place] [id number] Nov, [facility] [address] [id number] [address] [place] [address], [place] [address] Nov, [facility] [address] [id number] [address] [place] [address], [place] [address] Oct, [facility] [address] [facility] [id number] [address] [place] [address], [place] [address] Oct, [facility] [address] [id number] [address] [place] [address], [place] [address] Sep, [facility] [place] [address] [id number] [place] [id number] Sep, [facility] [place] [address] [id number] [place] [id number] Sep, [facility] [address] [id number] [address] [place] [address], [place] [address] Sep, [facility] [place] [address] [id number] [place] [id number] Aug, [facility] [address] [id number] [address] [place] [address], [place] [address] Aug, [facility] [place] [address] [id number] [place] [id number] Jul, [facility] [address] [id number] [address] [place] [address], [place] [address] Jul, [facility] [place] [address] [id number] [place] [id number] Jul, [facility] [address] [id number] [address] [place] [address], [place] [address] Jul, [facility] [place] [address] [id number] [place] [id number] Jul, [facility] [address] [id number] [address] [place] [address], [place] [address] Jul, [facility] [place] [address] [id number] [place] [id number] Jul, [facility] [address] [id number] [address] [place] [address], [place] [address] Jul, [facility] [address] [id number] [address] [place] [address], [place] [address] Jul, [facility] [place] [address] [id number] [place] [id number] Jun, [facility] [address] [id number] [address] [place] [address], [place] [address] Jun, [facility] [place] [address] [id number] [place] [id number] Jun, [facility] [place] [address] [id number] [place] [id number] Jun, [facility] [address] [id number] [address] [place] [address], [place] [address] Jun, [facility] [address] [id number] [address] [place] [address], [place] [id number] Jun, [facility] [place] [address] [id number] [place] [id number] Jun, [facility] [address] [id number] [address] [place] [address], [place] [id number] Jun, [facility] [address] [id number] [address] [place] [address], [place] [id number] Jun, [facility] [place] [address] [id number] [place] [id number] May, [facility] [place] [address] [id number] [place] [id number] May, [facility] [place] [address] [id number] [place] [id number] May, [facility] [place] [address] [id number] [place] [id number] May, [facility] [place] [address] [id number] [place] [id number] Apr, [facility] [place] [address] [id number] [place] [id number] Feb, [facility] [place] [address] [id number] [place] [id number] Feb, [facility] [address] [id number] [address] [place] [id number] Feb, [facility] [place] [address] [id number] [place] [id number] January, [facility] [address] [facility] [id number] [address] [place] [id number] January, [facility] [place] [address] [id number] [place] [id number] January, [facility] [place] [address] [id number] [place] [id number] January, [facility] [place] [address] [id number] [place] [id number] January, [facility] [address] [facility] [id number] [address] [place] [id number] Nov, [facility] [address] [facility] [id number] [address] [place] [id number] Nov, [facility] [place] [address] [id number] [place] [id number] Oct, [facility] [place] [address] [id number] [place] [id number] Oct, [facility] [place] [address] [id number] [place] [id number] Oct, [facility] [place] [address] [id number] [place] [id number] Oct, [facility] [address] [id number] [address] [place] [id number] Oct, [facility] [address] [facility] [id number] [address] [place] [phone] Oct, [facility] [place] [address] [id number] [place] [id number] Sep, [facility] [place] [address] [facility] [id number] [address] [place] [id number] Sep, [facility] [place] [address] [id number] [place] [id number] Sep, [facility] [place] [address] [id number] [place] [id number] Sep, [facility] [place] [address] [id number] [place] [id number] Jun, [facility] [place] [address] [id number] [address] [place] [id number] Jun, [facility] [place] [address] [id number] [place] [id number] May, [facility] [place] [address] [id number] [place] [id number] May, [facility] [place] [address] [id number] [place] [id number] Apr, [facility] [place] [address] [id number] [place] [id number] Apr, [facility] [place] [address] [id number] [place] [id number] Apr, [facility] [place] [address] [id number] [place] [id number] Mar, [facility] [address] [id number] [address] [place] [address], [place] [id number] Feb, [facility] [place] [address] [id number] [place] [id number] Nov, [facility] [place] [address] [id number] [place] [id number] Nov, [facility] [address] [facility] [id number] [address] [place] [id number] Nov, [facility] [facility] [address] [facility] [id number] [address] [place] [id number] Nov, [facility] [address] [facility] [id number] [address] [place] [phone] Nov, [facility] [address] [facility] [id number] [place] [id number] Nov, [facility] [address] [facility] [id number] [place] [id number] Sep, [facility] [address] [facility] [id number] [place] [id number] Sep, IMMUNIZATIONS No Known Immunizations SOCIAL HISTORY Never Assessed REASON FOR VISIT PLAN OF CARE VITAL SIGNS Height 62 in 2014-05-25 Weight 195 lbs 2014-05-25 Temperature 98 degrees Fahrenheit 2014-05-25 Heart Rate 88 bpm 2014-05-25 Respiratory Rate 18 2014-05-25 Blood pressure systolic 120 mmHg 2014-05-25 Blood pressure diastolic 82 mmHg 2014-05-25 MEDICATIONS No Known Medications RESULTS No Results PROCEDURES Procedure Date Ordered Result Body Site DXA BONE DENSITY, AXIAL May 25, 2014 INSTRUCTIONS MEDICATIONS ADMINISTERED No Known Medications [...] [id number] 03/06/2016 Surgical History Hemmroidectomy-Dr. YANG in [place] 2013 Surgical History EGD/Colonoscopy 07/27/18 Hospitalization History surgeries Hospitalization History [facility] for abdominal/chest pain 07/2015 Hospitalization History Inpt for lumbar surgery x's 10 days 02/2015 Hospitalization History Pt was in [facility] home for rehab from surgery, Dx with UTI -03/2016
--- OUTSIDE RECORDS SUMMARY | 2019-09-07 21:25 | XMS REPORT ---
Author Author Paola Lucero [facility] Address [address] [place] [id number] Care Team Providers Care Flue Cleaner Name Role Phone YU Lucero Unavailable PROBLEMS Type Condition ICD9-CM Code WPH28-US Code Onset Dates Condition S tatus SNOMED Code Problem Abnormal MRI, lumbar spine R93.7 Act sung 998754104 Problem Hyperlipemia, mixed E78.2 Active 281683446 Problem Esophageal reflux K21.9 Active 24 5194326 Problem Non-seasonal allergic rhinitis due to pollen J30.1 Active 19061451 Problem COPD (chronic obstructive pulmonary disease) J44.9 Active 63265798 Problem Essential hypertension I10 Active 29927356 Problem Acquired hypothyroidism E03.9 Active 511836230 Problem Neuropathy G62.9 Active 485166802 Problem Chronic fatigue R53.82 Active 5270 2003 ALLERGIES No Information ENCOUNTERS Encounter Location Date Diagnosis [place] [id number] [id number] January, Arthralgia of left temporomandibular shaina nt M26.622 [place] [id number] [place], [place] [address], [place] [id number] January, Essential hypertension I10 ; Neuropathy G62.9 and Edema, unspecified type R60.9 [place] [id number] [id number] Sep, [place] [id number] [place], [place] [address], [facility] S [id number] Sep, COPD (chronic obstructive pulmonary dise ase) J44.9 ; Essential hypertension I10 ; Hyperlipemia, mixed E78.2 ; Acquired hypothyroidism E03.9 ; Esophageal reflux K21.9 ; Midline low back pain, unspecified chronicity, with sciatica presence unspecified M54.5 and Michaelle infection B37.[address] [id number] [place] [id number] Sep, Toenail fungus B35.1 [facility] [place] [address] [facility] [id number] [place] [id number] Aug, [facility] [place] [address] [facility] [id number] [place] [id number] Aug, Rhinitis J31.0 [facility] [address] [id number] [id number] Aug, [facility] [place] [address] [facility] [id number] [place] [id number] Aug, [facility] [place] [address] [facility] [id number] [place] [id number] Aug, [facility] [place] [address] [facility] [address] [id number] [id number] Jul, Urinary tract infection, site not specif ied N39.0 and Dysuria R30.0 [facility] [place] [address] [facility] [id number] [place] [id number] Jun, Acquired hypothyroidism E03.9 ; Hyperlip emia, mixed E78.2 ; Essential hypertension I10 ; Esophageal reflux K21.9 ; COPD (chronic obstructive pulmonary disease) J44.9 ; Ingrown toenail L60.0 ; Foot pain, bilateral M79.671 ; Noncompliance by refusing intervention or support Z53.29 ; Colon cancer screening Z12.11 and Rhinitis J31.0 [facility] [address] [facility] [id number] [place] [id number] Jun, Hyperlipemia, mixed E78.2 [facility] [place] [address] [facility] [id number] [place] [id number] Jun, Hypothyroidism, unspecified type E03.9 ; Hyperlipemia, mixed E78.2 ; Essential hypertension I10 and Encounter for immunization Z23 [facility] [place] [address] [facility] [id number] [place] [id number] Jun, [facility] [place] [address] [facility] [id number] [place] [id number] May, Essential hypertension I10 [facility] [place] [address] [id number] [place] [id number] May, Hypothyroidism, unspecified type E03.9 ; Essential hypertension I10 and Hyperlipemia, mixed E78.2 [facility] [place] [address] [id number] [place] [id number] Apr, [facility] [place] [address] [id number] [place] [id number] Apr, Abnormal mammogram of left breast R92.8 [facility] [place] [address] [id number] [place] [id number] Mar, Abnormal mammogram of left breast R92.8 [facility] [place] [address] [id number] [place] [id number] Mar, [facility] [place] [address] [id number] [place] [id number] Mar, [facility] [address] [facility] [id number] [address] [place] [address] Feb, Sore throat and laryngitis J 06.0 and Strep throat J02.0 [facility] [address] [facility] [id number] [address] [place] [address] Dec, [facility] [place] [address] [id number] [place] [id number] Dec, [facility] [place] [address] [id number] [place] [id number] Dec, Dilated pore of Mk of back L70.8 ; Se borrheic keratoses L82.1 and Non- seasonal allergic rhinitis due to pollen J30.1 [facility] [place] [address] [id number] [place] [id number] Dec, [facility] [place] [address] [facility] [address] [id number][place] [id number] Oct, [facility] [place] [address] [id number] [place] [id number] Oct, Screening breast examination Z12.31 and History of abnormal mammogram Z87.898 [facility] [place] [address] [place] [id number] [place] [id number] Sep, [facility] [place] [address] [place] [id number] [place] [id number] Sep, [facility] [place] [address] [place] [id number] [place] [id number] Sep, [facility] [place] [address] [place] [id number] [place] [address], [place] [id number] Jun, Obesity (BMI 30.0-34.9) E66.9 ; Chronic fatigue R53.82 ; Neuropathy G62.9 ; Essential hypertension I10 and Encounter for immunization Z23 [facility] [address] [place] [id number] [place] [address], [place] [id number] Jun, Neuropathy G62.9 and Essential hypertens ion I10 [facility] [id number] [place] [id number] Apr, [facility] [place] [address] [place] [id number] [place] [address], [place] [id number] Mar, Neuropathy G62.9 ; Hypothyroidism, unspe cified type E03.9 ; Essential hypertension I10 ; Muscle spasm M62.838 and Hyperlipemia, mixed E78.2 [facility] [id number] [place] [id number] Feb, [facility] [place] [id number] [place] [id number] January, [facility] [place] [id number] [place] [id number] Dec, [facility] [place] [address] [place] [id number] [place] [address], [place] [id number] Dec, Hypothyroidism, unspecified type E03.9 [facility] [place] [address] [place] [id number] [place] [id number] Nov, [facility] [place] [address] [place] [id number] [place] [address], [place] [id number] Nov, Neuropathy G62.9 ; Sinus congestion R09. 81 ; Hyperlipemia, mixed E78.2 and Hypothyroidism, unspecified type E03.9 [facility] [place] [address] [place] [id number] [place] [id number] Nov, Neuropathy G62.9 [facility] [place] [address] [facility] [id number] [place] [id number] Nov, Sinus congestion R09.81 and Acquired hyp othyroidism E03.9 [facility] [place] [address] [facility] [id number] [place] [id number] Nov, Acquired hypothyroidism E03.9 [facility] [place] [address] [id number] [place] [id number] Oct, [facility] [place] [address] [facility] [id number] [place] [id number] Oct, Sinus congestion R09.81 and Neuropathy G 62.9 [place] [id number] [place] [id number] Oct, Fever, unspecified R50.9 ; Sinus congest ion R09.81 and Neuropathy G62.9 [place] [address] [id number] [place] [address] Oct, [facility] [place] [address] [place] [id number] [place] [id number] Oct, Abnormal mammogram of left breast R92.8 [place] [id number] [place] [id number] Sep, Abnormal mammogram R92.8 [place] [address] [facility] [id number] [place] [id number] Sep, Acquired hypothyroidism E03.9 [facility] [place] [address] [facility] [id number] [place] [id number] Sep, Hypothyroidism, unspecified type E03.9 ; Hyperlipemia, mixed E78.2 and Essential hypertension I10 [facility] [id number] [place] [id number] Sep, Hypothyroidism, unspecified type E03.9 a nd Hyperlipemia, mixed E78.2 [facility] [place] [address] [place] [id number] [place] [id number] Aug, Acute maxillary sinusitis, recurrence no t specified J01.00 [facility] [place] [address] [id number] [place] [id number] Jul, Hyperlipemia, mixed E78.2 [facility] [place] [address] [id number] [place] [id number] Jul, Acquired hypothyroidism E03.9 ; Hyperlip emia, mixed E78.2 ; Multiple joint pain M25.50 ; Esophageal reflux K21.9 ; Otitis media with effusion, right H65.91 and Essential hypertension I10 [facility] [place] [address] [id number] [place] [id number] Jul, Gastroesophageal reflux disease, esophag itis presence not specified K21.9 [facility] [place] [address] [id number] [place] [id number] May, [facility] [place] [address] [id number] [place] [id number] Apr, Cystitis N30.90 and Well woman exam Z01. 419 [facility] [place] [address] [id number] [place] [id number] Apr, Hematuria R31.9 and Dysuria R30.0 [facility] [place] [address] [id number] [place] [id number] Apr, [facility] [place] [address] [id number] [place] [id number] Apr, Urinary tract infection, site not specif ied N39.0 and Hematuria, unspecified R31.9 [facility] [place] [address] [id number] [place] [id number] Dec, [facility] [place] [address] [id number] [place] [id number] Nov, [facility] [place] [address] [id number] [place] [id number] Oct, Hyperlipemia, mixed E78.2 [facility] [place] [address] [id number] [place] [id number] Oct, Gastroesophageal reflux disease, esophag itis presence not specified K21.9 ; Acute serous otitis media of left ear, recurrence not specified H65.02 ; Hyperlipemia, mixed E78.2 and Hypothyroidism, unspecified type E03.9 [place] [address] [facility] [id number] [place] [id number] Sep, [address] [id number] [place] [id number] Sep, Actinic keratoses L57.0 and Stuffy and r unny nose J34.89 [address] [id number] Aug, [address] [id number] Aug, Acute cystitis with hematuria N30.[address] [place] [address], S [id number] Jul, Reflux esophagitis K21.0 ; Acquired defo rmities of toe, 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 ; Multiple joint pain M25.50 and Sinus congestion R09.81 [address] [place] [id number] Jul, [address] S [id number] Jun, Acute cystitis without hematuria N30.00 ; Dysuria R30.0 ; Flank pain R10.9 and High risk medication use Z79.899 [address] [place], S [id number] Jun, Urinary tract infection N39.0 [facility] [address] [id number] [id number] Jun, [address] [id number] [place] [id number] Jun, Urinary tract infection, site not specif ied 599.0 and Encounter for immunization Z23 [facility] [place] [address] [facility] [id number] [facility] [place] [id number] Jun, [place] [id number] [place] [id number] May, [place] [id number] [id number] Dec, [facility] [address] [facility] [id number] [address] [place] [address], [place] [address] Dec, [facility] [address] [facility] [id number] [address] [place] [address], [place] [address] Dec, [facility] [place] [address] [id number] [place] [id number] Oct, [facility] [address] [id number] [address] [place] [address], [place] [address] Oct, [facility] [place] [address] [id number] [place] [id number] Sep, [facility] [address] [facility] [id number] [address] [place] [address], [place] [address] Sep, [facility] [place] [address] [id number] [place] [id number] Sep, [facility] [address] [facility] [id number] [address] [place] [address], [place] [address] Sep, [facility] [place] [address] [id number] [place] [id number] Aug, [facility] [place] [address] [id number] [place] [id number] Aug, [facility] [address] [facility] [id number] [address] [place] [address], [place] [address] Aug, [facility] [address] [id number] [address] [place] [address], [place] [address] Aug, [facility] [place] [address] [id number] [place] [id number] Aug, [facility] [address] [facility] [id number] [address] [place] [address], [place] [address] Aug, [facility] [place] [address] [id number] [place] [id number] Jul, [facility] [address] [facility] [id number] [address] [place] [address], [place] [address] Jul, [facility] [place] [address] [id number] [place] [id number] Jul, [facility] [address] [id number] [address] [place] [address], [place] [address] Jul, [facility] [place] [address] [id number] [place] [id number] Jul, [facility] [address] [id number] [address] [place] [address], [place] [address] Jul, [facility] [place] [address] [id number] [place] [id number] Jul, [facility] [address] [id number] [address] [place] [address], [place] [address] Jul, [facility] [address] [id number] [address] [place] [address], [place] [address] Jun, [facility] [address] [id number] [address] [place] [address], [place] [address] Jun, [facility] [place] [address] [id number] [place] [id number] Jun, [facility] [address] [id number] [address] [place] [address] Jun, [facility] [address] [id number] [address] [place] [address], [place] [address] Jun, [facility] [place] [address] [id number] [place] [id number] Jun, [facility] [place] [address] [id number] [place] [id number] Jun, [facility] [address] [id number] [address] [place] [address], [place] [address] Jun, [facility] [place] [address] [id number] [place] [id number] Jun, [facility] [address] [id number] [address] [place] [address], [place] [address] Jun, [facility] [place] [address] [id number] [place] [id number] May, [facility] [address] [id number] [facility] [place] [address] May, [facility] [place] [address] [id number] [place] [id number] May, [facility] [address] [id number] [facility] [place] [address] May, [facility] [address] [id number] [facility] [place] [address] Apr, [facility] [address] [id number] [address] [place] [address], [place] [address] Apr, [facility] [place] [address] [id number] [place] [id number] Apr, [facility] [address] [id number] [address] [place] [address], [place] [address] Apr, [facility] [place] [address] [id number] [place] [id number] Mar, [facility] [address] [id number] [address] [place] [address], [place] [address] Mar, [facility] [place] [address] [id number] [place] [id number] Feb, [facility] [address] [id number] [facility] [place] [address] Feb, [facility] [place] [address] [id number] [place] [id number] January, [facility] [address] [id number] [facility] [place] [address] January, [facility] [place] [address] [id number] [place] [id number] January, [facility] [address] [id number] [facility] [place] [address] January, [facility] [place] [address] [id number] [place] [id number] Dec, [facility] [address] [id number] [address] [place] [address], [place] [address] Dec, [facility] [place] [address] [id number] [place] [id number] Dec, [facility] [address] [id number] [address] [place] [address], [place] [address] Dec, [facility] [place] [address] [id number] [place] [id number] Nov, [facility] [address] [id number] [address] [place] [address], [place] [address] Nov, [facility] [address] [id number] [address] [place] [address], [place] [address] Oct, [facility] [address] [facility] [id number] [address] [place] [address], [place] [address] Oct, [facility] [address] [id number] [address] [place] [address], [place] [address] Sep, [facility] [place] [address] [id number] [place] [id number] Sep, [facility] [place] [address] [id number] [place] [id number] Sep, [facility] [address] [id number] [address] [place] [address], [place] [address] Sep, [facility] [place] [address] [id number] [place] [id number] Aug, [facility] [address] [id number] [address] [place] [address], [place] [address] Aug, [facility] [place] [address] [id number] [place] [id number] Jul, [facility] [address] [id number] [address] [place] [address], [place] [address] Jul, [facility] [place] [address] [id number] [place] [id number] Jul, [facility] [address] [id number] [address] [place] [address], [place] [address] Jul, [facility] [place] [address] [id number] [place] [id number] Jul, [facility] [address] [id number] [address] [place] [address], [place] [address] Jul, [facility] [place] [address] [id number] [place] [id number] Jul, [facility] [address] [id number] [address] [place] [address], [place] [address] Jul, [facility] [address] [id number] [address] [place] [address], [place] [address] Jul, [facility] [place] [address] [id number] [place] [id number] Jun, [facility] [address] [id number] [address] [place] [address], [place] [address] Jun, [facility] [place] [address] [id number] [place] [id number] Jun, [facility] [place] [address] [id number] [place] [id number] Jun, [facility] [address] [id number] [address] [place] [address], [place] [address] Jun, [facility] [address] [id number] [address] [place] [address], [place] [address] Jun, [facility] [place] [address] [id number] [place] [id number] Jun, [facility] [address] [id number] [address] [place] [address], [place] [address] Jun, [facility] [address] [id number] [address] [place] [address], [place] [address] Jun, [facility] [place] [address] [id number] [place] [id number] May, [facility] [place] [address] [id number] [place] [id number] May, [facility] [place] [address] [id number] [place] [id number] May, [facility] [place] [address] [id number] [place] [id number] May, [facility] [place] [address] [id number] [place] [id number] Apr, [facility] [place] [address] [id number] [place] [id number] Feb, [facility] [place] [address] [id number] [place] [id number] Feb, [facility] [address] [id number] [address] [place] [id number] Feb, [facility] [place] [address] [id number] [place] [id number] January, [facility] [address] [facility] [id number] [address] [place] [address] January, [facility] [place] [address] [id number] [place] [id number] January, [facility] [place] [address] [id number] [place] [id number] January, [facility] [place] [address] [id number] [place] [id number] January, [facility] [address] [facility] [id number] [address] [place] [phone] Nov, [facility] [address] [facility] [id number] [address] [place] [address] Nov, [facility] [place] [address] [id number] [place] [id number] Oct, [facility] [place] [address] [id number] [place] [id number] Oct, [facility] [place] [address] [id number] [place] [id number] Oct, [facility] [place] [address] [id number] [place] [id number] Oct, [facility] [address] [id number] [address] [place] [phone] Oct, [facility] [address] [facility] [id number] [address] [place] [phone] Oct, [facility] [place] [address] [id number] [place] [id number] Sep, [facility] [address] [facility] [id number] [address] [place] [id number] Sep, [facility] [place] [address] [id number] [place] [id number] Sep, [facility] [place] [address] [id number] [place] [id number] Sep, [facility] [place] [address] [id number] [place] [id number] Jun, [facility] [address] [id number] [address] [place] [id number] Jun, [facility] [place] [address] [id number] [place] [id number] May, [facility] [place] [address] [id number] [place] [id number] May, [facility] [place] [address] [id number] [place] [id number] Apr, [facility] [place] [address] [id number] [place] [id number] Apr, [facility] [place] [address] [id number] [place] [id number] Apr, [facility] [place] [address] [id number] [place] [id number] Mar, [facility] [address] [id number] [address] [place] [address], [place] [address] Feb, [facility] [place] [address] [id number] [place] [id number] Nov, [facility] [place] [address] [id number] [place] [id number] Nov, [facility] [address] [facility] [id number] [address] [place] [id number] Nov, [facility] [address] [facility] [id number] [address] [place] [id number] Nov, [facility] [address] [facility] [id number] [address] [place] [id number] Nov, [facility] [address] [facility] [id number] [place] [id number] Nov, [facility] [facility] [address] [facility] [id number] [place] [id number] Sep, [facility] [address] [facility] [id number] [place] [id number] Sep, IMMUNIZATIONS No Known Immunizations SOCIAL HISTORY [...] [id number] 03/06/2016 Surgical History Hemmroidectomy-Dr. YANG in [place] 2013 Surgical History EGD/Colonoscopy 07/27/18 Hospitalization History surgeries Hospitalization History [facility] for abdominal/chest pain 07/2015 Hospitalization History Inpt for lumbar surgery x's 10 days 02/2015 Hospitalization History Pt was in [facility] home for rehab from surgery, Dx with UTI
--- OUTSIDE RECORDS SUMMARY | 2019-09-07 21:25 | XMS REPORT ---
Author Author Paola White Doctor Organization [facility] Address Unknown Phone Unavailable Care Team Providers Care Php Magento Developer Name Role Phone Migration, Doctor Unavailable Unavailable PROBLEMS Type Condition ICD9-CM Code [id number] Code Onset Dates Condition S tatus SNOMED Code Problem Abnormal MRI, lumbar spine R93.7 Act sung 983912865 Problem Hyperlipemia, mixed E78.2 Active 855863761 Problem Esophageal reflux K21.9 Active 24 8284668 Problem Non-seasonal allergic rhinitis due to pollen J30.1 Active 58304864 Problem COPD (chronic obstructive pulmonary disease) J44.9 Active 33915078 Problem Essential hypertension I10 Active 60040051 Problem Acquired hypothyroidism E03.9 Active 084643438 Problem Neuropathy G62.9 Active 494890663 Problem Chronic fatigue R53.82 Active 5270 2003 ALLERGIES No Information ENCOUNTERS Encounter Location Date Diagnosis [place] [id number] [id number] January, Arthralgia of left temporomandibular shaina nt M26.622 [place] [id number] [id number] January, Essential hypertension I10 ; Neuropathy G62.9 and Edema, unspecified type R60.9 [place] [id number] [id number] Sep, [place] [id number] [id number] Sep, COPD (chronic obstructive pulmonary dise ase) J44.9 ; Essential hypertension I10 ; Hyperlipemia, mixed E78.2 ; Acquired hypothyroidism E03.9 ; Esophageal reflux K21.9 ; Midline low back pain, unspecified chronicity, with sciatica presence unspecified M54.5 and Michaelle infection B37.[id number] [place] [id number] Sep, Toenail fungus B35.1 [facility] [place] [address] [facility] [id number] [place] [id number] Aug, [facility] [place] [address] [facility] [id number] [place] [id number] Aug, Rhinitis J31.[address] [facility] [address] [id number] [id number] Aug, [facility] [place] [address] [facility] [id number] [place] [id number] Aug, [facility] [place] [address] [facility] [id number] [place] [id number] Aug, [facility] [address] [id number][place] [id number] Jul, Urinary tract infection, site not specif ied N39.0 and Dysuria R30.0 [facility] [place] [id number] [place] [id number] Jun, Acquired hypothyroidism E03.9 ; Hyperlip emia, mixed E78.2 ; Essential hypertension I10 ; Esophageal reflux K21.9 ; COPD (chronic obstructive pulmonary disease) J44.9 ; Ingrown toenail L60.0 ; Foot pain, bilateral M79.671 ; Noncompliance by refusing intervention or support Z53.29 ; Colon cancer screening Z12.11 and Rhinitis J31.0 [facility] [place] [id number] [place] [id number] Jun, Hyperlipemia, mixed E78.2 [facility] [place] [id number] [place] [id number] Jun, Hypothyroidism, unspecified type E03.9 ; Hyperlipemia, mixed E78.2 ; Essential hypertension I10 and Encounter for immunization Z23 [facility] [place] [address] [facility] [id number] [place] [id number] Jun, [facility] [place] [address] [facility] [id number] [place] [id number] May, Essential hypertension I10 [facility] [place] [place] [id number] [place] [id number] May, Hypothyroidism, unspecified type E03.9 ; Essential hypertension I10 and Hyperlipemia, mixed E78.2 [facility] [place] [address] [id number] [place] [id number] Apr, [facility] [place] [address] [id number] [place] [id number] Apr, Abnormal mammogram of left breast R92.8 [facility] [place] [address] [id number] [place] [id number] Mar, Abnormal mammogram of left breast R92.8 [facility] [place] [place] [address] [id number] [place] [id number] Mar, [facility] [place] [address] [id number] [place] [id number] Mar, [facility] [address] [facility] [id number] [address] [place] [address] Feb, Sore throat and laryngitis J 06.0 and Strep throat J02.0 [facility] [address] [facility] [id number] [address] [place] [address] Dec, [facility] [place] [place] [address] [id number] [place] [id number] Dec, [facility] [place] [place] [address] [id number] [place] [id number] Dec, Dilated pore of Mk of back L70.8 ; Se borrheic keratoses L82.1 and Non- seasonal allergic rhinitis due to pollen J30.1 [facility] [place] [place] [address] [id number] [place] [id number] Dec, [facility] [place] [address] [id number], [place] [id number] Oct, [facility] [place] [address] [id number] [place] [id number] Oct, Screening breast examination Z12.31 and History of abnormal mammogram Z87.898 [facility] [place] [place] [address] [id number] [place] [id number] Sep, [facility] [place] [place] [address] [id number] [place] [id number] Sep, [facility] [place] [address] [id number] [place] [id number] Sep, [facility] [place] [place] [address] [id number] [place] [id number] Jun, Obesity (BMI 30.0-34.9) E66.9 ; Chronic fatigue R53.82 ; Neuropathy G62.9 ; Essential hypertension I10 and Encounter for immunization Z23 [facility] [place] [place] [address] [id number] [place] [id number] Jun, Neuropathy G62.9 and Essential hypertens ion I10 [facility] [place] [place] [address] [id number] [place] [id number] Apr, [facility] [place] [place] [address] [id number] [place] [id number] Mar, Neuropathy G62.9 ; Hypothyroidism, unspe cified type E03.9 ; Essential hypertension I10 ; Muscle spasm M62.838 and Hyperlipemia, mixed E78.2 [facility] [place] [place] [address] [id number] [place] [id number] Feb, [facility] [place] [place] [address] [id number] [place] [id number] January, [facility] [place] [place] [address] [id number] [place] [id number] Dec, [facility] [place] [address] [id number] [place] [id number] Dec, Hypothyroidism, unspecified type E03.9 [facility] [place] [place] [address] [id number] [place] [id number] Nov, [facility] [place] [address] [id number] [place] [id number] Nov, Neuropathy G62.9 ; Sinus congestion R09. 81 ; Hyperlipemia, mixed E78.2 and Hypothyroidism, unspecified type E03.9 [facility] [place] [place] [address] [id number] [place] [id number] Nov, Neuropathy G62.9 [facility] [place] [place] [address] [id number] [place] [id number] Nov, Sinus congestion R09.81 and Acquired hyp othyroidism E03.9 [facility] [place] [place] [address] [place] [id number] [place] [address], [place] [id number] Nov, Acquired hypothyroidism E03.9 [facility] [place] [address] [id number] [place] [id number] Oct, [facility] [place] [address] [id number] [place] [id number] Oct, Sinus congestion R09.81 and Neuropathy G 62.9 [facility] [place] [place] [address] [id number] [place] [id number] Oct, Fever, unspecified R50.9 ; Sinus congest ion R09.81 and Neuropathy G62.9 [facility] [place] [address] [place] [id number] [address] Oct, [facility] [place] [place] [address] [place] [id number] [place] [address], [place] [id number] Oct, Abnormal mammogram of left breast R92.8 [facility] [place] [place] [address] [place] [id number] [place] [address], [place] [id number] Sep, Abnormal mammogram R92.8 [facility] [address] [place] [id number] [place] [address], [place] [id number] Sep, Acquired hypothyroidism E03.9 [facility] [place] [place] [id number] [place] [id number] Sep, Hypothyroidism, unspecified type E03.9 ; Hyperlipemia, mixed E78.2 and Essential hypertension I10 [facility] [place] [place] [address] [id number] [place] [id number] Sep, Hypothyroidism, unspecified type E03.9 a nd Hyperlipemia, mixed E78.2 [facility] [place] [place] [address] [id number] [place] [id number] Aug, Acute maxillary sinusitis, recurrence no t specified J01.00 [facility] [place] [place] [address] [id number] [place] [id number] Jul, Hyperlipemia, mixed E78.2 [facility] [place] [address] [id number] [place] [id number] Jul, Acquired hypothyroidism E03.9 ; Hyperlip emia, mixed E78.2 ; Multiple joint pain M25.50 ; Esophageal reflux K21.9 ; Otitis media with effusion, right H65.91 and Essential hypertension I10 [facility] [place] [address] [id number] [place] [id number] Jul, Gastroesophageal reflux disease, esophag itis presence not specified K21.9 [facility] [place] [address] [id number] [place] [id number] May, [facility] [place] [address] [id number] [place] [id number] Apr, Cystitis N30.90 and Well woman exam Z01. 419 [facility] [place] [place] [address] [id number] [place] [id number] Apr, Hematuria R31.9 and Dysuria R30.0 [facility] [place] [address] [id number] [place] [id number] Apr, [facility] [place] [address] [id number] [place] [id number] Apr, Urinary tract infection, site not specif ied N39.0 and Hematuria, unspecified R31.9 [facility] [place] [place] [address] [id number] [place] [id number] Dec, [facility] [place] [address] [id number] [place] [id number] Nov, [facility] [place] [address] [id number] [place] [id number] Oct, Hyperlipemia, mixed E78.2 [facility] [place] [address] [id number] [place] [id number] Oct, Gastroesophageal reflux disease, esophag itis presence not specified K21.9 ; Acute serous otitis media of left ear, recurrence not specified H65.02 ; Hyperlipemia, mixed E78.2 and Hypothyroidism, unspecified type E03.9 [facility] [place] [address] [id number] [place] [id number] Sep, [facility] [address] [place] [id number] [place] [id number] Sep, Actinic keratoses L57.0 and Stuffy and r unny nose J34.89 [facility] [address] [place] [id number] [place] [id number] Aug, [place] [id number] [place] [address], [place] [id number] Aug, Acute cystitis with hematuria N30.01 [facility] [id number] [place] [id number] Jul, Reflux esophagitis K21.0 ; Acquired defo rmities of toe, 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 ; Multiple joint pain M25.50 and Sinus congestion R09.[address] [id number] Jul, [place] [id number] [place] [id number] Jun, Acute cystitis without hematuria N30.00 ; Dysuria R30.0 ; Flank pain R10.9 and High risk medication use Z79.899 [place] [id number] [place] [id number] Jun, Urinary tract infection N39.0 [place] [address] [facility] [address] [id number][place] [id number] Jun, [place] [id number] [place] [id number] Jun, Urinary tract infection, site not specif ied 599.0 and Encounter for immunization [facility]23 [facility] [id number] [place] [id number] Jun, [facility] [address] [place] [id number] [place] [id number] May, [place] [id number], [place] [id number] Dec, [facility] [address] [place] [id number] [address] [place] [address], [place] [address] Dec, [facility] [address] [id number] [address] [place] [address], [place] [address] Dec, [facility] [place] [address] [id number] [place] [id number] Oct, [facility] [address] [id number] [address] [place] [address], [place] [address] Oct, [facility] [place] [address] [id number] [place] [id number] Sep, [facility] [address] [id number] [address] [place] [address], [place] [address] Sep, [facility] [place] [address] [id number] [place] [id number] Sep, [facility] [address] [id number] [address] [place] [address], [place] [address] Sep, [facility] [place] [address] [id number] [place] [id number] Aug, [facility] [place] [address] [id number] [place] [id number] Aug, [facility] [address] [facility] [id number] [address] [place] [address], [place] [address] Aug, [facility] [address] [id number] [address] [place] [address], [place] [address] Aug, [facility] [place] [address] [id number] [place] [id number] Aug, [facility] [address] [id number] [address] [place] [address], [place] [address] Aug, [facility] [place] [address] [id number] [place] [id number] Jul, [facility] [address] [id number] [address] [place] [address], [place] [address] Jul, [facility] [place] [address] [id number] [place] [id number] Jul, [facility] [address] [id number] [address] [place] [address], [place] [address] Jul, [facility] [place] [address] [id number] [place] [id number] Jul, [facility] [address] [id number] [address] [place] [address], [place] [address] Jul, [facility] [place] [address] [id number] [place] [id number] Jul, [facility] [address] [id number] [address] [place] [address], [place] [address] Jul, [facility] [address] [id number] [address] [place] [address], [place] [address] Jun, [facility] [address] [id number] [address] [place] [address], [place] [address] Jun, [facility] [place] [address] [id number] [place] [id number] Jun, [facility] [address] [id number] [address] [place] [address], [place] [address] Jun, [facility] [address] [id number] [address] [place] [address], [place] [address] Jun, [facility] [place] [address] [id number] [place] [id number] Jun, [facility] [place] [address] [id number] [place] [id number] Jun, [facility] [address] [id number] [address] [place] [address], [place] [address] Jun, [facility] [place] [address] [id number] [place] [id number] Jun, [facility] [address] [id number] [address] [place] [address], [place] [address] Jun, [facility] [place] [address] [id number] [place] [id number] May, [facility] [address] [id number] [address] [place] [address], [place] [address] May, [facility] [place] [address] [id number] [place] [id number] May, [facility] [address] [id number] [facility] [address] May, [facility] [address] [id number] [address] [place] [address], [place] [address] Apr, [facility] [address] [id number] [address] [place] [address], [place] [address] Apr, [facility] [place] [address] [id number] [place] [id number] Apr, [facility] [address] [id number] [address] [place] [address], [place] [address] Apr, [facility] [place] [address] [id number] [place] [id number] Mar, [facility] [address] [id number] [address] [place] [address], [place] [address] Mar, [facility] [place] [address] [id number] [place] [id number] Feb, [facility] [address] [id number] [address] [place] [address], [place] [address] Feb, [facility] [place] [address] [id number] [place] [id number] January, [facility] [address] [id number] [address] [place] [address], [place] [address] January, [facility] [place] [address] [id number] [place] [id number] January, [facility] [address] [id number] [address] [place] [address], [place] [address] January, [facility] [place] [address] [id number] [place] [id number] Dec, [facility] [address] [id number] [address] [place] [address], [place] [address] Dec, [facility] [place] [address] [id number] [place] [id number] Dec, [facility] [address] [id number] [address] [place] [address], [place] [address] Dec, [facility] [place] [address] [id number] [place] [id number] Nov, [facility] [address] [id number] [address] [place] [address], [place] [address] Nov, [facility] [address] [id number] [address] [place] [address], [place] [address] Oct, [facility] [address] [id number] [address] [place] [address], [place] [address] Oct, [facility] [address] [id number] [address] [place] [address], [place] [address] Sep, [facility] [place] [address] [id number] [place] [id number] Sep, [facility] [place] [address] [id number] [place] [id number] Sep, [facility] [address] [id number] [address] [place] [address], [place] [address] Sep, [facility] [place] [address] [id number] [place] [id number] Aug, [facility] [address] [id number] [address] [place] [address], [place] [address] Aug, [facility] [place] [address] [id number] [place] [id number] Jul, [facility] [address] [id number] [address] [place] [address], [place] [address] Jul, [facility] [place] [address] [id number] [place] [id number] Jul, [facility] [address] [id number] [address] [place] [address], [place] [address] Jul, [facility] [place] [address] [id number] [place] [id number] Jul, [facility] [address] [id number] [address] [place] [address], [place] [address] Jul, [facility] [place] [address] [id number] [place] [id number] Jul, [facility] [address] [facility] [id number] [address] [place] [address], [place] [address] Jul, [facility] [address] [id number] [address] [place] [address], [place] [address] Jul, [facility] [place] [address] [id number] [place] [id number] Jun, [facility] [address] [facility] [id number] [address] [place] [address] Jun, [facility] [place] [address] [id number] [place] [id number] Jun, [facility] [place] [address] [id number] [place] [id number] Jun, [facility] [address] [facility] [id number] [address] [place] [address] Jun, [facility] [address] [facility] [id number] [address] [place] [id number] Jun, [facility] [place] [address] [id number] [place] [id number] Jun, [facility] [address] [facility] [id number] [address] [place] [id number] Jun, [facility] [address] [facility] [id number] [address] [place] [phone] Jun, [facility] [place] [address] [id number] [place] [id number] May, [facility] [place] [address] [id number] [place] [id number] May, [facility] [place] [address] [id number] [place] [id number] May, [facility] [place] [address] [id number] [place] [id number] May, [facility] [place] [address] [id number] [place] [id number] Apr, [facility] [place] [address] [id number] [place] [id number] Feb, [facility] [place] [address] [id number] [place] [id number] Feb, [facility] [address] [id number] [address] [place] [id number] Feb, [facility] [place] [address] [id number] [place] [id number] January, [facility] [address] [facility] [id number] [address] [place] [id number] January, [facility] [place] [address] [id number] [place] [id number] January, [facility] [place] [address] [id number] [place] [id number] January, [facility] [place] [address] [id number] [place] [id number] January, [facility] [address] [facility] [id number] [address] [place] [id number] Nov, [facility] [address] [facility] [id number] [address] [place] [id number] Nov, [facility] [place] [address] [id number] [place] [id number] Oct, [facility] [place] [address] [id number] [place] [id number] Oct, [facility] [place] [address] [id number] [place] [id number] Oct, [facility] [place] [address] [id number] [place] [id number] Oct, [facility] [address] [facility] [id number] [address] [place] [id number] Oct, [facility] [address] [id number] [address] [place] [id number] Oct, [facility] [place] [address] [id number] [place] [id number] Sep, [facility] [address] [id number] [address] [place] [id number] Sep, [facility] [place] [address] [id number] [place] [id number] Sep, [facility] [place] [address] [id number] [place] [id number] Sep, [facility] [place] [address] [id number] [place] [id number] Jun, [facility] [address] [id number] [address] [place] [address], [place] [address] Jun, [facility] [place] [address] [id number] [place] [id number] May, [facility] [place] [address] [id number] [place] [id number] May, [facility] [place] [address] [id number] [place] [id number] Apr, [facility] [place] [address] [id number] [place] [id number] Apr, [facility] [place] [address] [id number] [place] [id number] Apr, [facility] [place] [address] [id number] [place] [id number] Mar, [facility] [address] [id number] [address] [place] [address], [place] [address] Feb, [facility] [place] [address] [id number] [place] [id number] Nov, [facility] [place] [address] [id number] [place] [id number] Nov, [facility] [address] [facility] [id number] [address] [place] [id number] Nov, [facility] [address] [facility] [id number] [address] [address] Nov, [facility] [address] [facility] [id number] [address] [address] 10 Nov, 2011 [facility] [address] [facility] [id number] [place], S [id number] Nov, [facility] [address] [facility] [id number] [place], [place] [id number] Sep, [facility] [address] [facility] [id number] [place], S [id number] Sep, IMMUNIZATIONS No Known Immunizations SOCIAL HISTORY [...] [id number] 03/06/2016 Surgical History Hemmroidectomy-Dr. Y[place] in [place] 2013 Surgical History EGD/Colonoscopy 07/27/18 Hospitalization History surgeries Hospitalization History [facility] for abdominal/chest pain 07/2015 Hospitalization History Inpt for lumbar surgery x's 10 days 02/2015 Hospitalization History Pt was in [facility] home for rehab from surgery, Dx with UTI
--- OUTSIDE RECORDS SUMMARY | 2019-09-07 21:25 | XMS REPORT ---
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 Name Role Phone YU Lucero Unavailable PROBLEMS Type Condition ICD9-CM Code MJR93-NR Code Onset Dates Condition S tatus SNOMED Code Problem Abnormal MRI, lumbar spine R93.7 Act sung 630100518 Problem Hyperlipemia, mixed E78.2 Active 937338224 Problem Esophageal reflux K21.9 Active 24 7125137 Problem Non-seasonal allergic rhinitis due to pollen J30.1 Active 19436203 Problem COPD (chronic obstructive pulmonary disease) J44.9 Active 29697649 Problem Essential hypertension I10 Active 72673088 Problem Acquired hypothyroidism E03.9 Active 959337444 Problem Neuropathy G62.9 Active 186472502 Problem Chronic fatigue R53.82 Active 5270 2003 ALLERGIES No Information ENCOUNTERS Encounter Location Date Diagnosis [place] [id number] [id number] January, Arthralgia of left temporomandibular shaina nt M26.622 [place] [id number] [place], [place] [address], [place] [id number] January, Essential hypertension I10 ; Neuropathy G62.9 and Edema, unspecified type R60.9 [place] [id number] [employer] [id number] Sep, [place] [id number] [place], [place] [address] [employer] [place] [id number] Sep, COPD (chronic obstructive pulmonary dise ase) J44.9 ; Essential hypertension I10 ; Hyperlipemia, mixed E78.2 ; Acquired hypothyroidism E03.9 ; Esophageal reflux K21.9 ; Midline low back pain, unspecified chronicity, with sciatica presence unspecified M54.5 and Michaelle infection B37.[address] [id number] [place] [id number] Sep, Toenail fungus B35.1 [facility] [place] [address] [facility] [id number] [place] [id number] Aug, [facility] [place] [address] [facility] [id number] [place] [id number] Aug, Rhinitis J31.0 [facility] [address] [id number] [id number] Aug, [facility] [place] [address] [facility] [id number] [place] [id number] Aug, [facility] [place] [address] [facility] [id number] [place] [id number] Aug, [facility] [place] [address] [facility] [address] [id number][place] [id number] Jul, Urinary tract infection, site not specif ied N39.0 and Dysuria R30.0 [facility] [place] [address] [facility] [id number] [place] [id number] Jun, Acquired hypothyroidism E03.9 ; Hyperlip emia, mixed E78.2 ; Essential hypertension I10 ; Esophageal reflux K21.9 ; COPD (chronic obstructive pulmonary disease) J44.9 ; Ingrown toenail L60.0 ; Foot pain, bilateral M79.671 ; Noncompliance by refusing intervention or support Z53.29 ; Colon cancer screening Z12.11 and Rhinitis J31.0 [facility] [address] [facility] [id number] [place] [id number] Jun, Hyperlipemia, mixed E78.2 [facility] [place] [address] [facility] [id number] [place] [id number] Jun, Hypothyroidism, unspecified type E03.9 ; Hyperlipemia, mixed E78.2 ; Essential hypertension I10 and Encounter for immunization Z23 [facility] [place] [address] [facility] [id number] [place] [id number] Jun, [facility] [place] [address] [facility] [id number] [place] [id number] May, Essential hypertension I10 [facility] [place] [address] [id number] [place] [id number] May, Hypothyroidism, unspecified type E03.9 ; Essential hypertension I10 and Hyperlipemia, mixed E78.2 [facility] [place] [address] [id number] [place] [id number] Apr, [facility] [place] [address] [id number] [place] [id number] Apr, Abnormal mammogram of left breast R92.8 [facility] [place] [address] [id number] [place] [id number] Mar, Abnormal mammogram of left breast R92.8 [facility] [place] [address] [id number] [place] [id number] Mar, [facility] [place] [address] [id number] [place] [id number] Mar, [facility] [address] [facility] [id number] [address] [place] [address] Feb, Sore throat and laryngitis J 06.0 and Strep throat J02.0 [facility] [address] [facility] [id number] [address] [place] [address] Dec, [facility] [place] [address] [id number] [place] [id number] Dec, [facility] [place] [address] [id number] [place] [id number] Dec, Dilated pore of Mk of back L70.8 ; Se borrheic keratoses L82.1 and Non- seasonal allergic rhinitis due to pollen J30.1 [facility] [place] [address] [id number] [place] [id number] Dec, [facility] [address] [facility] [address] [id number] [id number] Oct, [facility] [place] [address] [id number] [place] [id number] Oct, Screening breast examination Z12.31 and History of abnormal mammogram Z87.898 [facility] [place] [address] [place] [address] [id number] [place] [id number] Sep, [facility] [place] [address] [id number] [place] [id number] Sep, [facility] [place] [address] [id number] [place] [id number] Sep, [facility] [place] [id number] [place] [address], [place] [id number] Jun, Obesity (BMI 30.0-34.9) E66.9 ; Chronic fatigue R53.82 ; Neuropathy G62.9 ; Essential hypertension I10 and Encounter for immunization Z23 [facility] [id number] [place] [address], [place] [id number] Jun, Neuropathy G62.9 and Essential hypertens ion I10 [facility] [id number] [place] [id number] Apr, [facility] [place] [id number] [place] [address], [place] [id number] Mar, Neuropathy G62.9 ; Hypothyroidism, unspe cified type E03.9 ; Essential hypertension I10 ; Muscle spasm M62.838 and Hyperlipemia, mixed E78.2 [facility] [id number] [place] [id number] Feb, [facility] [place] [id number] [place] [id number] January, [facility] [place] [id number] [place] [id number] Dec, [facility] [place] [id number] [place] [address], [place] [id number] Dec, Hypothyroidism, unspecified type E03.9 [facility] [place] [address] [place] [address] [id number] [place] [id number] Nov, [facility] [place] [id number] [place] [address], [place] [id number] Nov, Neuropathy G62.9 ; Sinus congestion R09. 81 ; Hyperlipemia, mixed E78.2 and Hypothyroidism, unspecified type E03.9 [facility] [place] [address] [place] [address] [id number] [id number] Nov, Neuropathy G62.9 [facility] [place] [address] [facility] [id number] [place] [id number] Nov, Sinus congestion R09.81 and Acquired hyp othyroidism E03.9 [facility] [place] [address] [facility] [id number] [place] [id number] Nov, Acquired hypothyroidism E03.9 [facility] [place] [address] [id number] [place] [id number] Oct, [facility] [place] [address] [facility] [id number] [place] [id number] Oct, Sinus congestion R09.81 and Neuropathy G 62.9 [place] [id number] [place] [id number] Oct, Fever, unspecified R50.9 ; Sinus congest ion R09.81 and Neuropathy G62.9 [place] [address] [id number] [place] [address] Oct, [facility] [place] [address] [place] [id number] [place] [id number] Oct, Abnormal mammogram of left breast R92.8 [place] [id number] [place] [id number] Sep, Abnormal mammogram R92.8 [place] [address] [facility] [id number] [place] [id number] Sep, Acquired hypothyroidism E03.9 [facility] [place] [address] [facility] [id number] [place] [id number] Sep, Hypothyroidism, unspecified type E03.9 ; Hyperlipemia, mixed E78.2 and Essential hypertension I10 [facility] [id number] [place] [id number] Sep, Hypothyroidism, unspecified type E03.9 a nd Hyperlipemia, mixed E78.2 [facility] [place] [address] [place] [id number] [place] [id number] Aug, Acute maxillary sinusitis, recurrence no t specified J01.00 [facility] [place] [address] [id number] [place] [id number] Jul, Hyperlipemia, mixed E78.2 [facility] [place] [address] [id number] [place] [id number] Jul, Acquired hypothyroidism E03.9 ; Hyperlip emia, mixed E78.2 ; Multiple joint pain M25.50 ; Esophageal reflux K21.9 ; Otitis media with effusion, right H65.91 and Essential hypertension I10 [facility] [place] [address] [id number] [place] [id number] Jul, Gastroesophageal reflux disease, esophag itis presence not specified K21.9 [facility] [place] [address] [id number] [place] [id number] May, [facility] [place] [address] [id number] [place] [id number] Apr, Cystitis N30.90 and Well woman exam Z01. 419 [facility] [place] [address] [id number] [place] [id number] Apr, Hematuria R31.9 and Dysuria R30.0 [facility] [place] [address] [id number] [place] [id number] Apr, [facility] [place] [address] [id number] [place] [id number] Apr, Urinary tract infection, site not specif ied N39.0 and Hematuria, unspecified R31.9 [facility] [place] [address] [id number] [place] [id number] Dec, [facility] [place] [address] [id number] [place] [id number] Nov, [facility] [place] [address] [id number] [place] [id number] Oct, Hyperlipemia, mixed E78.2 [facility] [place] [address] [id number] [place] [id number] Oct, Gastroesophageal reflux disease, esophag itis presence not specified K21.9 ; Acute serous otitis media of left ear, recurrence not specified H65.02 ; Hyperlipemia, mixed E78.2 and Hypothyroidism, unspecified type E03.9 [place] [address] [facility] [id number] [place] [id number] Sep, [address] [id number] [place] [id number] Sep, Actinic keratoses L57.0 and Stuffy and r unny nose J34.[id number], [place] [id number] Aug, [address]100[facility], [place] [id number] Aug, Acute cystitis with hematuria N30.[address] [place] [address], S [id number] Jul, Reflux esophagitis K21.0 ; Acquired defo rmities of toe, 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 ; Multiple joint pain M25.50 and Sinus congestion R09.81 [address], [place] [id number] Jul, [address], S [id number] Jun, Acute cystitis without hematuria N30.00 ; Dysuria R30.0 ; Flank pain R10.9 and High risk medication use Z79.899 [address]100[facility], [place] [id number] Jun, Urinary tract infection N39.0 [facility] [address] [id number] [id number] Jun, [address] [id number] [place] [id number] Jun, Urinary tract infection, site not specif ied 599.0 and Encounter for immunization Z23 [facility] [place] [address] [facility] [id number] [facility] [place] [id number] Jun, [place] [id number] [id number] May, [place] [id number] [id number] Dec, [facility] [address] [facility] [id number] [address] [place] [address], [place] [address] Dec, [facility] [address] [facility] [id number] [address] [place] [address], [place] [address] Dec, [facility] [place] [address] [id number] [place] [id number] Oct, [facility] [address] [id number] [address] [place] [address], [place] [address] Oct, [facility] [place] [address] [id number] [place] [id number] Sep, [facility] [address] [facility] [id number] [address] [place] [address], [place] [address] Sep, [facility] [place] [address] [id number] [place] [id number] Sep, [facility] [address] [facility] [id number] [address] [place] [address], [place] [address] Sep, [facility] [place] [address] [id number] [place] [id number] Aug, [facility] [place] [address] [id number] [place] [id number] Aug, [facility] [address] [facility] [id number] [address] [place] [address], [place] [address] Aug, [facility] [address] [id number] [address] [place] [address], [place] [address] Aug, [facility] [place] [address] [id number] [place] [id number] Aug, [facility] [address] [facility] [id number] [address] [place] [address], [place] [address] Aug, [facility] [place] [address] [id number] [place] [id number] Jul, [facility] [address] [facility] [id number] [address] [place] [address], [place] [address] Jul, [facility] [place] [address] [id number] [place] [id number] Jul, [facility] [address] [id number] [address] [place] [address], [place] [address] Jul, [facility] [place] [address] [id number] [place] [id number] Jul, [facility] [address] [id number] [address] [place] [address], [place] [address] Jul, [facility] [place] [address] [id number] [place] [id number] Jul, [facility] [address] [id number] [address] [place] [address], [place] [address] Jul, [facility] [address] [id number] [address] [place] [address], [place] [address] Jun, [facility] [address] [id number] [address] [place] [address], [place] [address] Jun, [facility] [place] [address] [id number] [place] [id number] Jun, [facility] [address] [id number] [address] [place] [address] Jun, [facility] [address] [id number] [address] [place] [address], [place] [address] Jun, [facility] [place] [address] [id number] [place] [id number] Jun, [facility] [place] [address] [id number] [place] [id number] Jun, [facility] [address] [id number] [address] [place] [address], [place] [address] Jun, [facility] [place] [address] [id number] [place] [id number] Jun, [facility] [address] [id number] [address] [place] [address], [place] [address] Jun, [facility] [place] [address] [id number] [place] [id number] May, [facility] [address] [id number] [facility] [place] [address] May, [facility] [place] [address] [id number] [place] [id number] May, [facility] [address] [id number] [facility] [place] [address] May, [facility] [address] [id number] [facility] [place] [address] Apr, [facility] [address] [id number] [address] [place] [address], [place] [address] Apr, [facility] [place] [address] [id number] [place] [id number] Apr, [facility] [address] [id number] [address] [place] [address], [place] [address] Apr, [facility] [place] [address] [id number] [place] [id number] Mar, [facility] [address] [id number] [address] [place] [address], [place] [address] Mar, [facility] [place] [address] [id number] [place] [id number] Feb, [facility] [address] [id number] [facility] [place] [address] Feb, [facility] [place] [address] [id number] [place] [id number] January, [facility] [address] [id number] [facility] [place] [address] January, [facility] [place] [address] [id number] [place] [id number] January, [facility] [address] [id number] [facility] [place] [address] January, [facility] [place] [address] [id number] [place] [id number] Dec, [facility] [address] [id number] [address] [place] [address], [place] [address] Dec, [facility] [place] [address] [id number] [place] [id number] Dec, [facility] [address] [id number] [address] [place] [address], [place] [address] Dec, [facility] [place] [address] [id number] [place] [id number] Nov, [facility] [address] [id number] [address] [place] [address], [place] [address] Nov, [facility] [address] [id number] [address] [place] [address], [place] [address] Oct, [facility] [address] [facility] [id number] [address] [place] [address], [place] [address] Oct, [facility] [address] [id number] [address] [place] [address], [place] [address] Sep, [facility] [place] [address] [id number] [place] [id number] Sep, [facility] [place] [address] [id number] [place] [id number] Sep, [facility] [address] [id number] [address] [place] [address], [place] [address] Sep, [facility] [place] [address] [id number] [place] [id number] Aug, [facility] [address] [id number] [address] [place] [address], [place] [address] Aug, [facility] [place] [address] [id number] [place] [id number] Jul, [facility] [address] [id number] [address] [place] [address], [place] [address] Jul, [facility] [place] [address] [id number] [place] [id number] Jul, [facility] [address] [id number] [address] [place] [address], [place] [address] Jul, [facility] [place] [address] [id number] [place] [id number] Jul, [facility] [address] [id number] [address] [place] [address], [place] [address] Jul, [facility] [place] [address] [id number] [place] [id number] Jul, [facility] [address] [id number] [address] [place] [address], [place] [address] Jul, [facility] [address] [id number] [address] [place] [address], [place] [address] Jul, [facility] [place] [address] [id number] [place] [id number] Jun, [facility] [address] [id number] [address] [place] [address], [place] [address] Jun, [facility] [place] [address] [id number] [place] [id number] Jun, [facility] [place] [address] [id number] [place] [id number] Jun, [facility] [address] [id number] [address] [place] [address], [place] [address] Jun, [facility] [address] [id number] [address] [place] [address], [place] [address] Jun, [facility] [place] [address] [id number] [place] [id number] Jun, [facility] [address] [id number] [address] [place] [address], [place] [address] Jun, [facility] [address] [id number] [address] [place] [address], [place] [address] Jun, [facility] [place] [address] [id number] [place] [id number] May, [facility] [place] [address] [id number] [place] [id number] May, [facility] [place] [address] [id number] [place] [id number] May, [facility] [place] [address] [id number] [place] [id number] May, [facility] [place] [address] [id number] [place] [id number] Apr, [facility] [place] [address] [id number] [place] [id number] Feb, [facility] [place] [address] [id number] [place] [id number] Feb, [facility] [address] [id number] [address] [place] [id number] Feb, [facility] [place] [address] [id number] [place] [id number] January, [facility] [address] [facility] [id number] [address] [place] [id number] January, [facility] [place] [address] [id number] [place] [id number] January, [facility] [place] [address] [id number] [place] [id number] January, [facility] [place] [address] [id number] [place] [id number] January, [facility] [address] [facility] [id number] [address] [place] [id number] Nov, [facility] [address] [facility] [id number] [address] [place] [id number] Nov, [facility] [place] [address] [id number] [place] [id number] Oct, [facility] [place] [address] [id number] [place] [id number] Oct, [facility] [place] [address] [id number] [place] [id number] Oct, [facility] [place] [address] [id number] [place] [id number] Oct, [facility] [address] [id number] [address] [place] [id number] Oct, [facility] [address] [facility] [id number] [address] [place] [id number] Oct, [facility] [place] [address] [id number] [place] [id number] Sep, [facility] [address] [facility] [id number] [address] [place] [id number] Sep, [facility] [place] [address] [id number] [place] [id number] Sep, [facility] [place] [address] [id number] [place] [id number] Sep, [facility] [place] [address] [id number] [place] [id number] Jun, [facility] [address] [id number] [address] [place] [id number] Jun, [facility] [place] [address] [id number] [place] [id number] May, [facility] [place] [address] [id number] [place] [id number] May, [facility] [place] [address] [id number] [place] [id number] Apr, [facility] [place] [address] [id number] [place] [id number] Apr, [facility] [place] [address] [id number] [place] [id number] Apr, [facility] [place] [address] [id number] [place] [id number] Mar, [facility] [address] [id number] [address] [place] [address], [place] [address] Feb, [facility] [place] [address] [id number] [place] [id number] Nov, [facility] [place] [address] [id number] [place] [id number] Nov, [facility] [address] [facility] [id number] [address] [place] [phone] Nov, [facility] [address] [facility] [id number] [address] [place] [phone] Nov, [facility] [address] [facility] [id number] [address] [place] [phone] Nov, [facility] [address] [facility] [id number] [place] [id number] Nov, [facility] [address] [facility] [id number] [place], [place] [id number] Sep, [facility] [address] [facility] [id number] [place], [place] [id number] Sep, IMMUNIZATIONS No Known Immunizations SOCIAL HISTORY [...] [id number] 03/06/2016 Surgical History Hemmroidectomy-Dr. Y[place] in [place] 2013 Surgical History EGD/Colonoscopy 07/27/18 Hospitalization History surgeries Hospitalization History [facility] for abdominal/chest pain 07/2015 Hospitalization History Inpt for lumbar surgery x's 10 days 02/2015 Hospitalization History Pt was in [facility] home for rehab from surgery, Dx with UTI
--- OUTSIDE RECORDS SUMMARY | 2019-09-07 21:25 | XMS REPORT ---
Author Author Paola Lucero [facility] Address [address] [place] [address] Care Team Providers Care Base Remover Name Role Phone YU Lucero Unavailable PROBLEMS Type Condition ICD9-CM Code MGD51-JP Code Onset Dates Condition S tatus SNOMED Code Problem Abnormal MRI, lumbar spine R93.7 Act sung 517619726 Problem Hyperlipemia, mixed E78.2 Active 153722077 Problem Esophageal reflux K21.9 Active 24 1215345 Problem Non-seasonal allergic rhinitis due to pollen J30.1 Active 45490780 Problem COPD (chronic obstructive pulmonary disease) J44.9 Active 22595831 Problem Essential hypertension I10 Active 54632876 Problem Acquired hypothyroidism E03.9 Active 922487008 Problem Neuropathy G62.9 Active 435167039 Problem Chronic fatigue R53.82 Active 5270 2003 ALLERGIES No Information ENCOUNTERS Encounter Location Date Diagnosis [place] [id number] [id number] January, Arthralgia of left temporomandibular shaina nt M26.622 [id number] [place], [place] [address], [place] [id number] January, Essential hypertension I10 ; Neuropathy G62.9 and Edema, unspecified type R60.9 [place] [id number] [employer] [place] [id number] Sep, [place] [id number] [place] [address], [employer] S [id number] Sep, COPD (chronic obstructive pulmonary dise ase) J44.9 ; Essential hypertension I10 ; Hyperlipemia, mixed E78.2 ; Acquired hypothyroidism E03.9 ; Esophageal reflux K21.9 ; Midline low back pain, unspecified chronicity, with sciatica presence unspecified M54.5 and Michaelle infection B37.[address] [id number] [place] [id number] Sep, Toenail fungus B35.1 [facility] [place] [address] [facility] [id number] [place] [id number] Aug, [facility] [place] [address] [facility] [id number] [place] [id number] Aug, Rhinitis J31.0 [facility] [address] [id number] [id number] Aug, [facility] [place] [address] [facility] [id number] [place] [id number] Aug, [facility] [place] [address] [facility] [id number] [place] [id number] Aug, [facility] [place] [address] [facility] [address] [id number][place] [id number] Jul, Urinary tract infection, site not specif ied N39.0 and Dysuria R30.0 [facility] [place] [address] [facility] [id number] [place] [id number] Jun, Acquired hypothyroidism E03.9 ; Hyperlip emia, mixed E78.2 ; Essential hypertension I10 ; Esophageal reflux K21.9 ; COPD (chronic obstructive pulmonary disease) J44.9 ; Ingrown toenail L60.0 ; Foot pain, bilateral M79.671 ; Noncompliance by refusing intervention or support Z53.29 ; Colon cancer screening Z12.11 and Rhinitis J31.0 [facility] [address] [facility] [id number] [place] [id number] Jun, Hyperlipemia, mixed E78.2 [facility] [place] [address] [facility] [id number] [place] [id number] Jun, Hypothyroidism, unspecified type E03.9 ; Hyperlipemia, mixed E78.2 ; Essential hypertension I10 and Encounter for immunization Z23 [facility] [place] [address] [facility] [id number] [place] [id number] Jun, [facility] [place] [address] [facility] [id number] [place] [id number] May, Essential hypertension I10 [facility] [place] [address] [id number] [place] [id number] May, Hypothyroidism, unspecified type E03.9 ; Essential hypertension I10 and Hyperlipemia, mixed E78.2 [facility] [place] [address] [id number] [place] [id number] Apr, [facility] [place] [address] [id number] [place] [id number] Apr, Abnormal mammogram of left breast R92.8 [facility] [place] [address] [id number] [place] [id number] Mar, Abnormal mammogram of left breast R92.8 [facility] [place] [address] [id number] [place] [id number] Mar, [facility] [place] [address] [id number] [place] [id number] Mar, [facility] [address] [facility] [id number] [address] [place] [address] Feb, Sore throat and laryngitis J 06.0 and Strep throat J02.0 [facility] [address] [facility] [id number] [address] [place] [address] Dec, [facility] [place] [address] [id number] [place] [id number] Dec, [facility] [place] [address] [id number] [place] [id number] Dec, Dilated pore of Mk of back L70.8 ; Se borrheic keratoses L82.1 and Non- seasonal allergic rhinitis due to pollen J30.1 [facility] [place] [address] [id number] [place] [id number] Dec, [facility] [address] [facility] [id number][place] [id number] Oct, [facility] [place] [address] [id number] [place] [id number] Oct, Screening breast examination Z12.31 and History of abnormal mammogram Z87.898 [facility] [place] [address] [id number] [place] [id number] Sep, [facility] [place] [address] [id number] [place] [id number] Sep, [facility] [place] [address] [id number] [place] [id number] Sep, [facility] [place] [address] [place] [id number] [place] [address], [place] [id number] Jun, Obesity (BMI 30.0-34.9) E66.9 ; Chronic fatigue R53.82 ; Neuropathy G62.9 ; Essential hypertension I10 and Encounter for immunization Z23 [facility] [address] [id number] [place] [address], [place] [id number] Jun, Neuropathy G62.9 and Essential hypertens ion I10 [facility] [id number] [place] [id number] Apr, [facility] [place] [address] [id number] [place] [address], [place] [id number] Mar, Neuropathy G62.9 ; Hypothyroidism, unspe cified type E03.9 ; Essential hypertension I10 ; Muscle spasm M62.838 and Hyperlipemia, mixed E78.2 [facility] [id number] [place] [id number] Feb, [facility] [place] [id number] [place] [id number] January, [facility] [place] [id number] [place] [id number] Dec, [facility] [place] [address] [id number] [place] [address], [place] [id number] Dec, Hypothyroidism, unspecified type E03.9 [facility] [place] [address] [id number] [place] [id number] Nov, [facility] [place] [address] [id number] [place] [address], [place] [id number] Nov, Neuropathy G62.9 ; Sinus congestion R09. 81 ; Hyperlipemia, mixed E78.2 and Hypothyroidism, unspecified type E03.9 [facility] [place] [address] [place] [address] [id number] [id number] Nov, Neuropathy G62.9 [facility] [place] [address] [facility] [id number] [place] [id number] Nov, Sinus congestion R09.81 and Acquired hyp othyroidism E03.9 [facility] [place] [address] [facility] [id number] [place] [id number] Nov, Acquired hypothyroidism E03.9 [facility] [place] [address] [id number] [place] [id number] Oct, [facility] [place] [address] [facility] [id number] [place] [id number] Oct, Sinus congestion R09.81 and Neuropathy G 62.9 [place] [id number] [place] [id number] Oct, Fever, unspecified R50.9 ; Sinus congest ion R09.81 and Neuropathy G62.9 [place] [address] [id number] [place] [address] Oct, [facility] [place] [address] [place] [place] [id number] [place] [id number] Oct, Abnormal mammogram of left breast R92.8 [place] [id number] [place] [id number] Sep, Abnormal mammogram R92.8 [place] [address] [facility] [id number] [place] [id number] Sep, Acquired hypothyroidism E03.9 [facility] [place] [address] [facility] [id number] [place] [id number] Sep, Hypothyroidism, unspecified type E03.9 ; Hyperlipemia, mixed E78.2 and Essential hypertension I10 [facility] [id number] [place] [id number] Sep, Hypothyroidism, unspecified type E03.9 a nd Hyperlipemia, mixed E78.2 [facility] [place] [address] [place] [id number] [place] [id number] Aug, Acute maxillary sinusitis, recurrence no t specified J01.00 [facility] [place] [address] [id number] [place] [id number] Jul, Hyperlipemia, mixed E78.2 [facility] [place] [address] [id number] [place] [id number] Jul, Acquired hypothyroidism E03.9 ; Hyperlip emia, mixed E78.2 ; Multiple joint pain M25.50 ; Esophageal reflux K21.9 ; Otitis media with effusion, right H65.91 and Essential hypertension I10 [facility] [place] [address] [id number] [place] [id number] Jul, Gastroesophageal reflux disease, esophag itis presence not specified K21.9 [facility] [place] [address] [id number] [place] [id number] May, [facility] [place] [address] [id number] [place] [id number] Apr, Cystitis N30.90 and Well woman exam Z01. 419 [facility] [place] [address] [id number] [place] [id number] Apr, Hematuria R31.9 and Dysuria R30.0 [facility] [place] [address] [id number] [place] [id number] Apr, [facility] [place] [address] [id number] [place] [id number] Apr, Urinary tract infection, site not specif ied N39.0 and Hematuria, unspecified R31.9 [facility] [place] [address] [id number] [place] [id number] Dec, [facility] [place] [address] [id number] [place] [id number] Nov, [facility] [place] [address] [id number] [place] [id number] Oct, Hyperlipemia, mixed E78.2 [facility] [place] [address] [id number] [place] [id number] Oct, Gastroesophageal reflux disease, esophag itis presence not specified K21.9 ; Acute serous otitis media of left ear, recurrence not specified H65.02 ; Hyperlipemia, mixed E78.2 and Hypothyroidism, unspecified type E03.9 [place] [address] [facility] [id number] [place] [id number] Sep, [address] [id number] [place] [id number] Sep, Actinic keratoses L57.0 and Stuffy and r unny nose J34.89 [address], [place] [id number] Aug, [address] [address]65[address], S [id number] Aug, Acute cystitis with hematuria N30.[address] [place] [address], S [id number] Jul, Reflux esophagitis K21.0 ; Acquired defo rmities of toe, 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 ; Multiple joint pain M25.50 and Sinus congestion R09.81 [address] [id number] Jul, [address], S [id number] Jun, Acute cystitis without hematuria N30.00 ; Dysuria R30.0 ; Flank pain R10.9 and High risk medication use Z79.899 [address], [place] [id number] Jun, Urinary tract infection N39.0 [facility] [address] [id number] [id number] Jun, [address] [id number] [place] [id number] Jun, Urinary tract infection, site not specif ied 599.0 and Encounter for immunization Z23 [facility] [place] [address] [facility] [id number] [facility] [place] [id number] Jun, [place] [id number] [id number] May, [place] [id number] [id number] Dec, [facility] [address] [facility] [id number] [address] [place] [address], [place] [address] Dec, [facility] [address] [facility] [id number] [address] [place] [address], [place] [address] Dec, [facility] [place] [address] [id number] [place] [id number] Oct, [facility] [address] [id number] [address] [place] [address], [place] [address] Oct, [facility] [place] [address] [id number] [place] [id number] Sep, [facility] [address] [facility] [id number] [address] [place] [address], [place] [address] Sep, [facility] [place] [address] [id number] [place] [id number] Sep, [facility] [address] [facility] [id number] [address] [place] [address], [place] [address] Sep, [facility] [place] [address] [id number] [place] [id number] Aug, [facility] [place] [address] [id number] [place] [id number] Aug, [facility] [address] [facility] [id number] [address] [place] [address], [place] [address] Aug, [facility] [address] [id number] [address] [place] [address], [place] [address] Aug, [facility] [place] [address] [id number] [place] [id number] Aug, [facility] [address] [facility] [id number] [address] [place] [address], [place] [address] Aug, [facility] [place] [address] [id number] [place] [id number] Jul, [facility] [address] [facility] [id number] [address] [place] [address], [place] [address] Jul, [facility] [place] [address] [id number] [place] [id number] Jul, [facility] [address] [id number] [address] [place] [address], [place] [address] Jul, [facility] [place] [address] [id number] [place] [id number] Jul, [facility] [address] [id number] [address] [place] [address], [place] [address] Jul, [facility] [place] [address] [id number] [place] [id number] Jul, [facility] [address] [id number] [address] [place] [address], [place] [address] Jul, [facility] [address] [id number] [address] [place] [address], [place] [address] Jun, [facility] [address] [id number] [address] [place] [address], [place] [address] Jun, [facility] [place] [address] [id number] [place] [id number] Jun, [facility] [address] [id number] [address] [place] [address] Jun, [facility] [address] [id number] [address] [place] [address], [place] [address] Jun, [facility] [place] [address] [id number] [place] [id number] Jun, [facility] [place] [address] [id number] [place] [id number] Jun, [facility] [address] [id number] [address] [place] [address], [place] [address] Jun, [facility] [place] [address] [id number] [place] [id number] Jun, [facility] [address] [id number] [address] [place] [address], [place] [address] Jun, [facility] [place] [address] [id number] [place] [id number] May, [facility] [address] [id number] [facility] [address] May, [facility] [place] [address] [id number] [place] [id number] May, [facility] [address] [id number] [facility] [address] May, [facility] [address] [id number] [facility] [address] Apr, [facility] [address] [id number] [address] [place] [address], [place] [address] Apr, [facility] [place] [address] [id number] [place] [id number] Apr, [facility] [address] [id number] [address] [place] [address], [place] [address] Apr, [facility] [place] [address] [id number] [place] [id number] Mar, [facility] [address] [id number] [address] [place] [address], [place] [address] Mar, [facility] [place] [address] [id number] [place] [id number] Feb, [facility] [address] [id number] [facility] [address] Feb, [facility] [place] [address] [id number] [place] [id number] January, [facility] [address] [id number] [facility] [address] January, [facility] [place] [address] [id number] [place] [id number] January, [facility] [address] [id number] [facility] [address] January, [facility] [place] [address] [id number] [place] [id number] Dec, [facility] [address] [id number] [address] [place] [address], [place] [address] Dec, [facility] [place] [address] [id number] [place] [id number] Dec, [facility] [address] [id number] [address] [place] [address], [place] [address] Dec, [facility] [place] [address] [id number] [place] [id number] Nov, [facility] [address] [id number] [address] [place] [address], [place] [address] Nov, [facility] [address] [id number] [address] [place] [address], [place] [address] Oct, [facility] [address] [facility] [id number] [address] [place] [address], [place] [address] Oct, [facility] [address] [id number] [address] [place] [address], [place] [address] Sep, [facility] [place] [address] [id number] [place] [id number] Sep, [facility] [place] [address] [id number] [place] [id number] Sep, [facility] [address] [id number] [address] [place] [address], [place] [address] Sep, [facility] [place] [address] [id number] [place] [id number] Aug, [facility] [address] [id number] [address] [place] [address], [place] [address] Aug, [facility] [place] [address] [id number] [place] [id number] Jul, [facility] [address] [id number] [address] [place] [address], [place] [address] Jul, [facility] [place] [address] [id number] [place] [id number] Jul, [facility] [address] [id number] [address] [place] [address], [place] [address] Jul, [facility] [place] [address] [id number] [place] [id number] Jul, [facility] [address] [id number] [address] [place] [address], [place] [address] Jul, [facility] [place] [address] [id number] [place] [id number] Jul, [facility] [address] [id number] [address] [place] [address], [place] [address] Jul, [facility] [address] [id number] [address] [place] [address], [place] [address] Jul, [facility] [place] [address] [id number] [place] [id number] Jun, [facility] [address] [id number] [address] [place] [address], [place] [address] Jun, [facility] [place] [address] [id number] [place] [id number] Jun, [facility] [place] [address] [id number] [place] [id number] Jun, [facility] [address] [id number] [address] [place] [address], [place] [address] Jun, [facility] [address] [id number] [address] [place] [address], [place] [address] Jun, [facility] [place] [address] [id number] [place] [id number] Jun, [facility] [address] [id number] [address] [place] [address], [place] [address] Jun, [facility] [address] [id number] [address] [place] [address], [place] [address] Jun, [facility] [place] [address] [id number] [place] [id number] May, [facility] [place] [address] [id number] [place] [id number] May, [facility] [place] [address] [id number] [place] [id number] May, [facility] [place] [address] [id number] [place] [id number] May, [facility] [place] [address] [id number] [place] [id number] Apr, [facility] [place] [address] [id number] [place] [id number] Feb, [facility] [place] [address] [id number] [place] [id number] Feb, [facility] [address] [id number] [address] [place] [id number] Feb, [facility] [place] [address] [id number] [place] [id number] January, [facility] [address] [facility] [id number] [address] [place] [id number] January, [facility] [place] [address] [id number] [place] [id number] January, [facility] [place] [address] [id number] [place] [id number] January, [facility] [place] [address] [id number] [place] [id number] January, [facility] [address] [facility] [id number] [address] [place] [id number] Nov, [facility] [address] [facility] [id number] [address] [place] [id number] Nov, [facility] [place] [address] [id number] [place] [id number] Oct, [facility] [place] [address] [id number] [place] [id number] Oct, [facility] [place] [address] [id number] [place] [id number] Oct, [facility] [place] [address] [id number] [place] [id number] Oct, [facility] [address] [id number] [address] [place] [id number] Oct, [facility] [address] [facility] [id number] [address] [place] [id number] Oct, [facility] [place] [address] [id number] [place] [id number] Sep, [facility] [address] [facility] [id number] [address] [place] [id number] Sep, [facility] [place] [address] [id number] [place] [id number] Sep, [facility] [place] [address] [id number] [place] [id number] Sep, [facility] [place] [address] [id number] [place] [id number] Jun, [facility] [address] [id number] [address] [place] [id number] Jun, [facility] [place] [address] [id number] [place] [id number] May, [facility] [place] [address] [id number] [place] [id number] May, [facility] [place] [address] [id number] [place] [id number] Apr, [facility] [place] [address] [id number] [place] [id number] Apr, [facility] [place] [address] [id number] [place] [id number] Apr, [facility] [place] [address] [id number] [place] [id number] Mar, [facility] [address] [id number] [address] [place] [address], [place] [address] Feb, [facility] [place] [address] [id number] [place] [id number] Nov, [facility] [place] [address] [id number] [place] [id number] Nov, [facility] [address] [facility] [id number] [address] [place] [id number] Nov, [facility] [address] [facility] [id number] [address] [place] [phone] Nov, [facility] [address] [facility] [id number] [address] [place] [phone] Nov, [facility] [address] [facility] [id number] [place] [id number] Nov, [facility] [address] [facility] [id number] [place] [id number] Sep, [facility] [address] [facility] [id number] [place] [id number] Sep, IMMUNIZATIONS No Known Immunizations SOCIAL HISTORY [...] [id number] 03/06/2016 Surgical History Hemmroidectomy-Dr. YANG in [place] 2013 Surgical History EGD/Colonoscopy 07/27/18 Hospitalization History surgeries Hospitalization History [facility] for abdominal/chest pain 07/2015 Hospitalization History Inpt for lumbar surgery x's 10 days 02/2015 Hospitalization History Pt was in [facility] home for rehab from surgery, Dx with UTI
--- OUTSIDE RECORDS SUMMARY | 2019-09-07 21:26 | XMS REPORT ---
Author Author Paola Lucero [facility] Address [address] [place] [address] Care Team Providers Care Pest Locator Name Role Phone YU Lucero Unavailable PROBLEMS Type Condition ICD9-CM Code XAY56-HY Code Onset Dates Condition S tatus SNOMED Code Problem Abnormal MRI, lumbar spine R93.7 Act sung 368497186 Problem Hyperlipemia, mixed E78.2 Active 967155570 Problem Esophageal reflux K21.9 Active 24 4393996 Problem Non-seasonal allergic rhinitis due to pollen J30.1 Active 57653576 Problem COPD (chronic obstructive pulmonary disease) J44.9 Active 79606653 Problem Essential hypertension I10 Active 68534339 Problem Acquired hypothyroidism E03.9 Active 108637802 Problem Neuropathy G62.9 Active 155029942 Problem Chronic fatigue R53.82 Active 5270 2003 ALLERGIES No Information ENCOUNTERS Encounter Location Date Diagnosis [place] [id number] [place] [id number] January, Arthralgia of left temporomandibular shaina nt M26.622 [address] [id number] [place], [place] [address], [place] [id number] January, Essential hypertension I10 ; Neuropathy G62.9 and Edema, unspecified type R60.9 [place] [id number] [id number] Sep, [place] [id number] [place], [place] [address], Targeted Growth S [id number] Sep, COPD (chronic obstructive pulmonary dise ase) J44.9 ; Essential hypertension I10 ; Hyperlipemia, mixed E78.2 ; Acquired hypothyroidism E03.9 ; Esophageal reflux K21.9 ; Midline low back pain, unspecified chronicity, with sciatica presence unspecified M54.5 and Michaelle infection B37.[address] [id number] [place] [id number] Sep, Toenail fungus B35.1 [facility] [place] [address] [facility] [id number] [place] [id number] Aug, [facility] [place] [address] [facility] [id number] [place] [id number] Aug, Rhinitis J31.0 [facility] [address] [id number] [id number] Aug, [facility] [place] [address] [facility] [id number] [place] [id number] Aug, [facility] [place] [address] [facility] [id number] [place] [id number] Aug, [facility] [place] [address] [facility] [facility] [address] [id number][place] [id number] Jul, Urinary tract infection, site not specif ied N39.0 and Dysuria R30.0 [facility] [place] [address] [facility] [id number] [place] [id number] Jun, Acquired hypothyroidism E03.9 ; Hyperlip emia, mixed E78.2 ; Essential hypertension I10 ; Esophageal reflux K21.9 ; COPD (chronic obstructive pulmonary disease) J44.9 ; Ingrown toenail L60.0 ; Foot pain, bilateral M79.671 ; Noncompliance by refusing intervention or support Z53.29 ; Colon cancer screening Z12.11 and Rhinitis J31.0 [facility] [address] [facility] [id number] [place] [id number] Jun, Hyperlipemia, mixed E78.2 [facility] [place] [address] [facility] [id number] [place] [id number] Jun, Hypothyroidism, unspecified type E03.9 ; Hyperlipemia, mixed E78.2 ; Essential hypertension I10 and Encounter for immunization Z23 [facility] [place] [address] [facility] [id number] [place] [id number] Jun, [facility] [place] [address] [facility] [id number] [place] [id number] May, Essential hypertension I10 [facility] [place] [address] [id number] [place] [id number] May, Hypothyroidism, unspecified type E03.9 ; Essential hypertension I10 and Hyperlipemia, mixed E78.2 [facility] [place] [address] [id number] [place] [id number] Apr, [facility] [place] [address] [id number] [place] [id number] Apr, Abnormal mammogram of left breast R92.8 [facility] [place] [address] [id number] [place] [id number] Mar, Abnormal mammogram of left breast R92.8 [facility] [place] [address] [id number] [place] [id number] Mar, [facility] [place] [address] [id number] [place] [id number] Mar, [facility] [address] [facility] [id number] [address] [place] [address] Feb, Sore throat and laryngitis J 06.0 and Strep throat J02.0 [facility] [address] [facility] [id number] [address] [place] [address] Dec, [facility] [place] [address] [id number] [place] [id number] Dec, [facility] [place] [address] [id number] [place] [id number] Dec, Dilated pore of Mk of back L70.8 ; Se borrheic keratoses L82.1 and Non- seasonal allergic rhinitis due to pollen J30.1 [facility] [place] [address] [id number] [place] [id number] Dec, [facility] [place] [address] [facility] [address] [id number][place] [id number] Oct, [facility] [place] [address] [id number] [place] [id number] Oct, Screening breast examination Z12.31 and History of abnormal mammogram Z87.898 [facility] [place] [address] [place] [id number] [place] [id number] Sep, [facility] [place] [address] [place] [id number] [place] [id number] Sep, [facility] [place] [address] [place] [address] [id number] [place] [id number] Sep, [facility] [place] [address] [id number] [place] [address], [place] [id number] Jun, Obesity (BMI 30.0-34.9) E66.9 ; Chronic fatigue R53.82 ; Neuropathy G62.9 ; Essential hypertension I10 and Encounter for immunization Z23 [facility] [address] [id number] [place] [address], [place] [id number] Jun, Neuropathy G62.9 and Essential hypertens ion I10 [facility] [id number] [place] [id number] Apr, [facility] [place] [address] [place] [id number] [place] [address], [place] [id number] Mar, Neuropathy G62.9 ; Hypothyroidism, unspe cified type E03.9 ; Essential hypertension I10 ; Muscle spasm M62.838 and Hyperlipemia, mixed E78.2 [facility] [id number] [place] [id number] Feb, [facility] [place] [id number] [place] [id number] January, [facility] [place] [id number] [place] [id number] Dec, [facility] [place] [address] [place] [id number] [place] [address], [place] [id number] Dec, Hypothyroidism, unspecified type E03.9 [facility] [place] [address] [place] [address] [id number] [place] [id number] Nov, [facility] [place] [address] [place] [id number] [place] [address], [place] [id number] Nov, Neuropathy G62.9 ; Sinus congestion R09. 81 ; Hyperlipemia, mixed E78.2 and Hypothyroidism, unspecified type E03.9 [facility] [place] [address] [place] [id number] [id number] Nov, Neuropathy G62.9 [facility] [place] [address] [facility] [id number] [place] [id number] Nov, Sinus congestion R09.81 and Acquired hyp othyroidism E03.9 [facility] [place] [address] [facility] [id number] [place] [id number] Nov, Acquired hypothyroidism E03.9 [facility] [place] [address] [id number] [place] [id number] Oct, [facility] [place] [address] [facility] [id number] [place] [id number] Oct, Sinus congestion R09.81 and Neuropathy G 62.9 [place] [id number] [place] [id number] Oct, Fever, unspecified R50.9 ; Sinus congest ion R09.81 and Neuropathy G62.9 [place] [address] [id number] [place] [address] Oct, [facility] [place] [address] [place] [id number] [place] [id number] Oct, Abnormal mammogram of left breast R92.8 [place] [id number] [place] [id number] Sep, Abnormal mammogram R92.8 [place] [address] [facility] [id number] [place] [id number] Sep, Acquired hypothyroidism E03.9 [facility] [place] [address] [facility] [id number] [place] [id number] Sep, Hypothyroidism, unspecified type E03.9 ; Hyperlipemia, mixed E78.2 and Essential hypertension I10 [facility] [id number] [place] [id number] Sep, Hypothyroidism, unspecified type E03.9 a nd Hyperlipemia, mixed E78.2 [facility] [place] [address] [place] [address] [id number] [place] [id number] Aug, Acute maxillary sinusitis, recurrence no t specified J01.00 [facility] [place] [address] [id number] [place] [id number] Jul, Hyperlipemia, mixed E78.2 [facility] [place] [address] [id number] [place] [id number] Jul, Acquired hypothyroidism E03.9 ; Hyperlip emia, mixed E78.2 ; Multiple joint pain M25.50 ; Esophageal reflux K21.9 ; Otitis media with effusion, right H65.91 and Essential hypertension I10 [facility] [place] [address] [id number] [place] [id number] Jul, Gastroesophageal reflux disease, esophag itis presence not specified K21.9 [facility] [place] [address] [id number] [place] [id number] May, [facility] [place] [address] [id number] [place] [id number] Apr, Cystitis N30.90 and Well woman exam Z01. 419 [facility] [place] [address] [id number] [place] [id number] Apr, Hematuria R31.9 and Dysuria R30.0 [facility] [place] [address] [id number] [place] [id number] Apr, [facility] [place] [address] [id number] [place] [id number] Apr, Urinary tract infection, site not specif ied N39.0 and Hematuria, unspecified R31.9 [facility] [place] [address] [id number] [place] [id number] Dec, [facility] [place] [address] [id number] [place] [id number] Nov, [facility] [place] [address] [id number] [place] [id number] Oct, Hyperlipemia, mixed E78.2 [facility] [place] [address] [id number] [place] [id number] Oct, Gastroesophageal reflux disease, esophag itis presence not specified K21.9 ; Acute serous otitis media of left ear, recurrence not specified H65.02 ; Hyperlipemia, mixed E78.2 and Hypothyroidism, unspecified type E03.9 [place] [address] [facility] [id number] [place] [id number] Sep, [address] [id number] [place] [id number] Sep, Actinic keratoses L57.0 and Stuffy and r unny nose J34.89 [address]65[address], [place] [id number] Aug, [address]65100[facility], [place] [id number] Aug, Acute cystitis with hematuria N30.01 [address] [place] [address], [place] [id number] Jul, Reflux esophagitis K21.0 ; Acquired defo rmities of toe, 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 ; Multiple joint pain M25.50 and Sinus congestion R09.81 [address], [place] [id number] Jul, [address], S [id number] Jun, Acute cystitis without hematuria N30.00 ; Dysuria R30.0 ; Flank pain R10.9 and High risk medication use Z79.899 [address]65[address], S [id number] Jun, Urinary tract infection N39.0 [facility] [address] [id number] [id number] Jun, [address] [id number] [place] [id number] Jun, Urinary tract infection, site not specif ied 599.0 and Encounter for immunization Z23 [facility] [place] [address] [facility] [id number] [facility] [place] [id number] Jun, [place] [id number] [id number] May, [place] [id number] [place] [id number] Dec, [facility] [address] [facility] [id number] [address] [place] [address], [place] [address] Dec, [facility] [address] [facility] [id number] [address] [place] [address], [place] [address] Dec, [facility] [place] [address] [id number] [place] [id number] Oct, [facility] [address] [id number] [address] [place] [address], [place] [address] Oct, [facility] [place] [address] [id number] [place] [id number] Sep, [facility] [address] [facility] [id number] [address] [place] [address], [place] [address] Sep, [facility] [place] [address] [id number] [place] [id number] Sep, [facility] [address] [facility] [id number] [address] [place] [address], [place] [address] Sep, [facility] [place] [address] [id number] [place] [id number] Aug, [facility] [place] [address] [id number] [place] [id number] Aug, [facility] [address] [facility] [id number] [address] [place] [address], [place] [address] Aug, [facility] [address] [id number] [address] [place] [address], [place] [address] Aug, [facility] [place] [address] [id number] [place] [id number] Aug, [facility] [address] [facility] [id number] [address] [place] [address], [place] [address] Aug, [facility] [place] [address] [id number] [place] [id number] Jul, [facility] [address] [facility] [id number] [address] [place] [address], [place] [address] Jul, [facility] [place] [address] [id number] [place] [id number] Jul, [facility] [address] [id number] [address] [place] [address], [place] [address] Jul, [facility] [place] [address] [id number] [place] [id number] Jul, [facility] [address] [id number] [address] [place] [address], [place] [address] Jul, [facility] [place] [address] [id number] [place] [id number] Jul, [facility] [address] [id number] [address] [place] [address], [place] [address] Jul, [facility] [address] [id number] [address] [place] [address], [place] [address] Jun, [facility] [address] [id number] [address] [place] [address], [place] [address] Jun, [facility] [place] [address] [id number] [place] [id number] Jun, [facility] [address] [id number] [address] [place] [address] Jun, [facility] [address] [id number] [address] [place] [address], [place] [address] Jun, [facility] [place] [address] [id number] [place] [id number] Jun, [facility] [place] [address] [id number] [place] [id number] Jun, [facility] [address] [id number] [address] [place] [address], [place] [address] Jun, [facility] [place] [address] [id number] [place] [id number] Jun, [facility] [address] [id number] [address] [place] [address], [place] [address] Jun, [facility] [place] [address] [id number] [place] [id number] May, [facility] [address] [id number] [facility] [place] [address] May, [facility] [place] [address] [id number] [place] [id number] May, [facility] [address] [id number] [facility] [place] [address] May, [facility] [address] [id number] [facility] [place] [address] Apr, [facility] [address] [id number] [address] [place] [address], [place] [address] Apr, [facility] [place] [address] [id number] [place] [id number] Apr, [facility] [address] [id number] [address] [place] [address], [place] [address] Apr, [facility] [place] [address] [id number] [place] [id number] Mar, [facility] [address] [id number] [address] [place] [address], [place] [address] Mar, [facility] [place] [address] [id number] [place] [id number] Feb, [facility] [address] [id number] [facility] [place] [address] Feb, [facility] [place] [address] [id number] [place] [id number] January, [facility] [address] [id number] [facility] [place] [address] January, [facility] [place] [address] [id number] [place] [id number] January, [facility] [address] [id number] [facility] [place] [address] January, [facility] [place] [address] [id number] [place] [id number] Dec, [facility] [address] [id number] [address] [place] [address], [place] [address] Dec, [facility] [place] [address] [id number] [place] [id number] Dec, [facility] [address] [id number] [address] [place] [address], [place] [address] Dec, [facility] [place] [address] [id number] [place] [id number] Nov, [facility] [address] [id number] [address] [place] [address], [place] [address] Nov, [facility] [address] [id number] [address] [place] [address], [place] [address] Oct, [facility] [address] [facility] [id number] [address] [place] [address], [place] [address] Oct, [facility] [address] [id number] [address] [place] [address], [place] [address] Sep, [facility] [place] [address] [id number] [place] [id number] Sep, [facility] [place] [address] [id number] [place] [id number] Sep, [facility] [address] [id number] [address] [place] [address], [place] [address] Sep, [facility] [place] [address] [id number] [place] [id number] Aug, [facility] [address] [id number] [address] [place] [address], [place] [address] Aug, [facility] [place] [address] [id number] [place] [id number] Jul, [facility] [address] [id number] [address] [place] [address], [place] [address] Jul, [facility] [place] [address] [id number] [place] [id number] Jul, [facility] [address] [id number] [address] [place] [address], [place] [address] Jul, [facility] [place] [address] [id number] [place] [id number] Jul, [facility] [address] [id number] [address] [place] [address], [place] [address] Jul, [facility] [place] [address] [id number] [place] [id number] Jul, [facility] [address] [id number] [address] [place] [address], [place] [address] Jul, [facility] [address] [id number] [address] [place] [address], [place] [address] Jul, [facility] [place] [address] [id number] [place] [id number] Jun, [facility] [address] [id number] [address] [place] [address], [place] [address] Jun, [facility] [place] [address] [id number] [place] [id number] Jun, [facility] [place] [address] [id number] [place] [id number] Jun, [facility] [address] [id number] [address] [place] [address], [place] [address] Jun, [facility] [address] [id number] [address] [place] [address], [place] [address] Jun, [facility] [place] [address] [id number] [place] [id number] Jun, [facility] [address] [id number] [address] [place] [address], [place] [address] Jun, [facility] [address] [id number] [address] [place] [address], [place] [address] Jun, [facility] [place] [address] [id number] [place] [id number] May, [facility] [place] [address] [id number] [place] [id number] May, [facility] [place] [address] [id number] [place] [id number] May, [facility] [place] [address] [id number] [place] [id number] May, [facility] [place] [address] [id number] [place] [id number] Apr, [facility] [place] [address] [id number] [place] [id number] Feb, [facility] [place] [address] [id number] [place] [id number] Feb, [facility] [address] [id number] [address] [place] [id number] Feb, [facility] [place] [address] [id number] [place] [id number] January, [facility] [address] [facility] [id number] [address] [place] [id number] January, [facility] [place] [address] [id number] [place] [id number] January, [facility] [place] [address] [id number] [place] [id number] January, [facility] [place] [address] [id number] [place] [id number] January, [facility] [address] [facility] [id number] [address] [place] [phone] Nov, [facility] [address] [facility] [id number] [address] [place] [id number] Nov, [facility] [place] [address] [id number] [place] [id number] Oct, [facility] [place] [address] [id number] [place] [id number] Oct, [facility] [place] [address] [id number] [place] [id number] Oct, [facility] [place] [address] [id number] [place] [id number] Oct, [facility] [address] [id number] [address] [place] [id number] Oct, [facility] [address] [facility] [id number] [address] [place] [phone] Oct, [facility] [place] [address] [id number] [place] [id number] Sep, [facility] [address] [facility] [id number] [address] [place] [id number] Sep, [facility] [place] [address] [id number] [place] [id number] Sep, [facility] [place] [address] [id number] [place] [id number] Sep, [facility] [place] [address] [id number] [place] [id number] Jun, [facility] [address] [id number] [address] [place] [id number] Jun, [facility] [place] [address] [id number] [place] [id number] May, [facility] [place] [address] [id number] [place] [id number] May, [facility] [place] [address] [id number] [place] [id number] Apr, [facility] [place] [address] [id number] [place] [id number] Apr, [facility] [place] [address] [id number] [place] [id number] Apr, [facility] [place] [address] [id number] [place] [id number] Mar, [facility] [address] [id number] [address] [place] [address], [place] [address] Feb, [facility] [place] [address] [id number] [place] [id number] Nov, [facility] [place] [address] [id number] [place] [id number] Nov, [facility] [address] [facility] [id number] [address] [place] [phone] Nov, [facility] [address] [facility] [id number] [address] [place] [phone] Nov, [facility] [address] [facility] [id number] [address] [place] [id number] Nov, [facility] [address] [facility] [id number] [place] [id number] Nov, [facility] [address] [facility] [id number] [place], S [id number] Sep, [facility] [address] [facility] [id number] [place], S [id number] Sep, IMMUNIZATIONS No Known Immunizations SOCIAL HISTORY [...] [id number] 03/06/2016 Surgical History Hemmroidectomy-Dr. [place] in [place] 2013 Surgical History EGD/Colonoscopy 07/27/18 Hospitalization History surgeries Hospitalization History [facility] for abdominal/chest pain 07/2015 Hospitalization History Inpt for lumbar surgery x's 10 days 02/2015 Hospitalization History Pt was in [facility] home for rehab from surgery, Dx with UTI
--- OUTSIDE RECORDS SUMMARY | 2019-09-07 21:26 | XMS REPORT ---
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 Name Role Phone YU Lucero Unavailable PROBLEMS Type Condition ICD9-CM Code FON39-SQ Code Onset Dates Condition S tatus SNOMED Code Problem Abnormal MRI, lumbar spine R93.7 Act sung 941361214 Problem Hyperlipemia, mixed E78.2 Active 567668784 Problem Esophageal reflux K21.9 Active 24 6174533 Problem Non-seasonal allergic rhinitis due to pollen J30.1 Active 71321881 Problem COPD (chronic obstructive pulmonary disease) J44.9 Active 30979023 Problem Essential hypertension I10 Active 84241647 Problem Acquired hypothyroidism E03.9 Active 815778269 Problem Neuropathy G62.9 Active 500517910 Problem Chronic fatigue R53.82 Active 5270 2003 ALLERGIES No Information ENCOUNTERS Encounter Location Date Diagnosis [place] [id number] [place] [id number] January, Arthralgia of left temporomandibular shaina nt M26.622 [place] [id number] [place], [place] [address], [place] [id number] January, Essential hypertension I10 ; Neuropathy G62.9 and Edema, unspecified type R60.9 [place] [id number] [employer] [id number] Sep, [place] [id number] [place], [place] [address], [place] [id number] Sep, COPD (chronic obstructive pulmonary dise ase) J44.9 ; Essential hypertension I10 ; Hyperlipemia, mixed E78.2 ; Acquired hypothyroidism E03.9 ; Esophageal reflux K21.9 ; Midline low back pain, unspecified chronicity, with sciatica presence unspecified M54.5 and Michaelle infection B37.[address] [id number] [place] [id number] Sep, Toenail fungus B35.1 [facility] [place] [address] [facility] [id number] [place] [id number] Aug, [facility] [place] [address] [facility] [id number] [place] [id number] Aug, Rhinitis J31.0 [facility] [place] [address] [id number] [id number] Aug, [facility] [place] [address] [facility] [id number] [place] [id number] Aug, [facility] [place] [address] [facility] [id number] [place] [id number] Aug, [facility] [place] [address] [facility] [address] [id number] [id number] Jul, Urinary tract infection, site not specif ied N39.0 and Dysuria R30.0 [facility] [place] [address] [facility] [id number] [place] [id number] Jun, Acquired hypothyroidism E03.9 ; Hyperlip emia, mixed E78.2 ; Essential hypertension I10 ; Esophageal reflux K21.9 ; COPD (chronic obstructive pulmonary disease) J44.9 ; Ingrown toenail L60.0 ; Foot pain, bilateral M79.671 ; Noncompliance by refusing intervention or support Z53.29 ; Colon cancer screening Z12.11 and Rhinitis J31.0 [facility] [address] [facility] [id number] [place] [id number] Jun, Hyperlipemia, mixed E78.2 [facility] [place] [address] [facility] [id number] [place] [id number] Jun, Hypothyroidism, unspecified type E03.9 ; Hyperlipemia, mixed E78.2 ; Essential hypertension I10 and Encounter for immunization Z23 [facility] [place] [address] [facility] [id number] [place] [id number] Jun, [facility] [place] [address] [facility] [id number] [place] [id number] May, Essential hypertension I10 [facility] [place] [address] [id number] [place] [id number] May, Hypothyroidism, unspecified type E03.9 ; Essential hypertension I10 and Hyperlipemia, mixed E78.2 [facility] [place] [address] [id number] [place] [id number] Apr, [facility] [place] [address] [id number] [place] [id number] Apr, Abnormal mammogram of left breast R92.8 [facility] [place] [address] [id number] [place] [id number] Mar, Abnormal mammogram of left breast R92.8 [facility] [place] [address] [id number] [place] [id number] Mar, [facility] [place] [address] [id number] [place] [id number] Mar, [facility] [address] [facility] [id number] [address] [place] [id number] Feb, Sore throat and laryngitis J 06.0 and Strep throat J02.0 [facility] [address] [facility] [id number] [address] [place] [phone] Dec, [facility] [place] [address] [id number] [place] [id number] Dec, [facility] [place] [address] [id number] [place] [id number] Dec, Dilated pore of Mk of back L70.8 ; Se borrheic keratoses L82.1 and Non- seasonal allergic rhinitis due to pollen J30.1 [facility] [place] [address] [id number] [place] [id number] Dec, [facility] [place] [address] [facility] [address] [id number] [id number] Oct, [facility] [place] [address] [id number] [place] [id number] Oct, Screening breast examination Z12.31 and History of abnormal mammogram Z87.898 [facility] [place] [address] [place] [address] [id number] [place] [id number] Sep, [facility] [place] [address] [id number] [place] [id number] Sep, [facility] [place] [address] [address] [id number] [place] [id number] Sep, [facility] [place] [address] [id number] [place] [address], [place] [id number] Jun, Obesity (BMI 30.0-34.9) E66.9 ; Chronic fatigue R53.82 ; Neuropathy G62.9 ; Essential hypertension I10 and Encounter for immunization Z23 [facility] [address] [place] [address] [id number] [place] [address], [place] [id number] Jun, Neuropathy G62.9 and Essential hypertens ion I10 [facility] [id number] [place] [id number] Apr, [facility] [place] [address] [place] [address] [id number] [place] [address], [place] [id number] Mar, Neuropathy G62.9 ; Hypothyroidism, unspe cified type E03.9 ; Essential hypertension I10 ; Muscle spasm M62.838 and Hyperlipemia, mixed E78.2 [facility] [id number] [place] [id number] Feb, [facility] [place] [id number] [place] [id number] January, [facility] [place] [id number] [place] [id number] Dec, [facility] [place] [address] [place] [id number] [place] [address], [place] [id number] Dec, Hypothyroidism, unspecified type E03.9 [facility] [place] [address] [place] [id number] [place] [id number] Nov, [facility] [place] [address] [place] [id number] [place] [address], [place] [id number] Nov, Neuropathy G62.9 ; Sinus congestion R09. 81 ; Hyperlipemia, mixed E78.2 and Hypothyroidism, unspecified type E03.9 [facility] [place] [address] [place] [id number] [id number] Nov, Neuropathy G62.9 [facility] [place] [address] [facility] [id number] [place] [id number] Nov, Sinus congestion R09.81 and Acquired hyp othyroidism E03.9 [facility] [place] [address] [facility] [id number] [place] [id number] Nov, Acquired hypothyroidism E03.9 [facility] [place] [address] [id number] [place] [id number] Oct, [facility] [place] [address] [facility] [id number] [place] [id number] Oct, Sinus congestion R09.81 and Neuropathy G 62.9 [place] [id number] [place] [id number] Oct, Fever, unspecified R50.9 ; Sinus congest ion R09.81 and Neuropathy G62.9 [place] [address] [id number] [place] [address] Oct, [facility] [place] [address] [place] [id number] [place] [id number] Oct, Abnormal mammogram of left breast R92.8 [place] [id number] [place] [id number] Sep, Abnormal mammogram R92.8 [place] [address] [facility] [id number] [place] [id number] Sep, Acquired hypothyroidism E03.9 [facility] [place] [address] [facility] [id number] [place] [id number] Sep, Hypothyroidism, unspecified type E03.9 ; Hyperlipemia, mixed E78.2 and Essential hypertension I10 [facility] [id number] [place] [id number] Sep, Hypothyroidism, unspecified type E03.9 a nd Hyperlipemia, mixed E78.2 [facility] [place] [address] [place] [address] [id number] [place] [id number] Aug, Acute maxillary sinusitis, recurrence no t specified J01.00 [facility] [place] [address] [id number] [place] [id number] Jul, Hyperlipemia, mixed E78.2 [facility] [place] [address] [id number] [place] [id number] Jul, Acquired hypothyroidism E03.9 ; Hyperlip emia, mixed E78.2 ; Multiple joint pain M25.50 ; Esophageal reflux K21.9 ; Otitis media with effusion, right H65.91 and Essential hypertension I10 [facility] [place] [address] [id number] [place] [id number] Jul, Gastroesophageal reflux disease, esophag itis presence not specified K21.9 [facility] [place] [address] [id number] [place] [id number] May, [facility] [place] [address] [id number] [place] [id number] Apr, Cystitis N30.90 and Well woman exam Z01. 419 [facility] [place] [address] [id number] [place] [id number] Apr, Hematuria R31.9 and Dysuria R30.0 [facility] [place] [address] [id number] [place] [id number] Apr, [facility] [place] [address] [id number] [place] [id number] Apr, Urinary tract infection, site not specif ied N39.0 and Hematuria, unspecified R31.9 [facility] [place] [address] [id number] [place] [id number] Dec, [facility] [place] [address] [id number] [place] [id number] Nov, [facility] [place] [address] [id number] [place] [id number] Oct, Hyperlipemia, mixed E78.2 [facility] [place] [address] [id number] [place] [id number] Oct, Gastroesophageal reflux disease, esophag itis presence not specified K21.9 ; Acute serous otitis media of left ear, recurrence not specified H65.02 ; Hyperlipemia, mixed E78.2 and Hypothyroidism, unspecified type E03.9 [place] [address] [facility] [id number] [place] [id number] Sep, [address] [id number] [place] [id number] Sep, Actinic keratoses L57.0 and Stuffy and r unny nose J34.89 [address]65100[facility], [place] [id number] Aug, [address]65100[facility], [place] [id number] Aug, Acute cystitis with hematuria N30.[address] [place] [address], S [id number] Jul, Reflux esophagitis K21.0 ; Acquired defo rmities of toe, 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 ; Multiple joint pain M25.50 and Sinus congestion R09.81 [address]65100[facility], S [id number] Jul, [address]100[facility], [place] [id number] Jun, Acute cystitis without hematuria N30.00 ; Dysuria R30.0 ; Flank pain R10.9 and High risk medication use Z79.899 [address]65100[facility], S [id number] Jun, Urinary tract infection N39.0 [facility] [address] [id number] [id number] Jun, [address] [id number] [place] [id number] Jun, Urinary tract infection, site not specif ied 599.0 and Encounter for immunization Z23 [facility] [place] [address] [facility] [id number] [facility] [place] [id number] Jun, [place] [id number] [id number] May, [place] [id number] [id number] Dec, [facility] [address] [facility] [id number] [address] [place] [address], [place] [address] Dec, [facility] [address] [facility] [id number] [address] [place] [address], [place] [address] Dec, [facility] [place] [address] [id number] [place] [id number] Oct, [facility] [address] [id number] [address] [place] [address], [place] [address] Oct, [facility] [place] [address] [id number] [place] [id number] Sep, [facility] [address] [facility] [id number] [address] [place] [address], [place] [address] Sep, [facility] [place] [address] [id number] [place] [id number] Sep, [facility] [address] [facility] [id number] [address] [place] [address], [place] [address] Sep, [facility] [place] [address] [id number] [place] [id number] Aug, [facility] [place] [address] [id number] [place] [id number] Aug, [facility] [address] [facility] [id number] [address] [place] [address], [place] [address] Aug, [facility] [address] [id number] [address] [place] [address], [place] [address] Aug, [facility] [place] [address] [id number] [place] [id number] Aug, [facility] [address] [facility] [id number] [address] [place] [address], [place] [address] Aug, [facility] [place] [address] [id number] [place] [id number] Jul, [facility] [address] [facility] [id number] [address] [place] [address], [place] [address] Jul, [facility] [place] [address] [id number] [place] [id number] Jul, [facility] [address] [id number] [address] [place] [address], [place] [address] Jul, [facility] [place] [address] [id number] [place] [id number] Jul, [facility] [address] [id number] [address] [place] [address], [place] [address] Jul, [facility] [place] [address] [id number] [place] [id number] Jul, [facility] [address] [id number] [address] [place] [address], [place] [address] Jul, [facility] [address] [id number] [address] [place] [address], [place] [address] Jun, [facility] [address] [id number] [address] [place] [address], [place] [address] Jun, [facility] [place] [address] [id number] [place] [id number] Jun, [facility] [address] [id number] [address] [place] [address] Jun, [facility] [address] [id number] [address] [place] [address], [place] [address] Jun, [facility] [place] [address] [id number] [place] [id number] Jun, [facility] [place] [address] [id number] [place] [id number] Jun, [facility] [address] [id number] [address] [place] [address], [place] [address] Jun, [facility] [place] [address] [id number] [place] [id number] Jun, [facility] [address] [id number] [address] [place] [address], [place] [address] Jun, [facility] [place] [address] [id number] [place] [id number] May, [facility] [address] [id number] [facility] [place] [address] May, [facility] [place] [address] [id number] [place] [id number] May, [facility] [address] [id number] [facility] [place] [address] May, [facility] [address] [id number] [facility] [place] [address] Apr, [facility] [address] [id number] [address] [place] [address], [place] [address] Apr, [facility] [place] [address] [id number] [place] [id number] Apr, [facility] [address] [id number] [address] [place] [address], [place] [address] Apr, [facility] [place] [address] [id number] [place] [id number] Mar, [facility] [address] [id number] [address] [place] [address], [place] [address] Mar, [facility] [place] [address] [id number] [place] [id number] Feb, [facility] [address] [id number] [facility] [place] [address] Feb, [facility] [place] [address] [id number] [place] [id number] January, [facility] [address] [id number] [facility] [place] [address] January, [facility] [place] [address] [id number] [place] [id number] January, [facility] [address] [id number] [facility] [place] [address] January, [facility] [place] [address] [id number] [place] [id number] Dec, [facility] [address] [id number] [address] [place] [address], [place] [address] Dec, [facility] [place] [address] [id number] [place] [id number] Dec, [facility] [address] [id number] [address] [place] [address], [place] [address] Dec, [facility] [place] [address] [id number] [place] [id number] Nov, [facility] [address] [id number] [address] [place] [address], [place] [address] Nov, [facility] [address] [id number] [address] [place] [address], [place] [address] Oct, [facility] [address] [facility] [id number] [address] [place] [address], [place] [address] Oct, [facility] [address] [id number] [address] [place] [address], [place] [address] Sep, [facility] [place] [address] [id number] [place] [id number] Sep, [facility] [place] [address] [id number] [place] [id number] Sep, [facility] [address] [id number] [address] [place] [address], [place] [address] Sep, [facility] [place] [address] [id number] [place] [id number] Aug, [facility] [address] [id number] [address] [place] [address], [place] [address] Aug, [facility] [place] [address] [id number] [place] [id number] Jul, [facility] [address] [id number] [address] [place] [address], [place] [address] Jul, [facility] [place] [address] [id number] [place] [id number] Jul, [facility] [address] [id number] [address] [place] [address], [place] [address] Jul, [facility] [place] [address] [id number] [place] [id number] Jul, [facility] [address] [id number] [address] [place] [address], [place] [address] Jul, [facility] [place] [address] [id number] [place] [id number] Jul, [facility] [address] [id number] [address] [place] [address], [place] [address] Jul, [facility] [address] [id number] [address] [place] [address], [place] [address] Jul, [facility] [place] [address] [id number] [place] [id number] Jun, [facility] [address] [id number] [address] [place] [address], [place] [address] Jun, [facility] [place] [address] [id number] [place] [id number] Jun, [facility] [place] [address] [id number] [place] [id number] Jun, [facility] [address] [id number] [address] [place] [address], [place] [address] Jun, [facility] [address] [id number] [address] [place] [address], [place] [id number] Jun, [facility] [place] [address] [id number] [place] [id number] Jun, [facility] [address] [id number] [address] [place] [address], [place] [id number] Jun, [facility] [address] [id number] [address] [place] [address], [place] [id number] Jun, [facility] [place] [address] [id number] [place] [id number] May, [facility] [place] [address] [id number] [place] [id number] May, [facility] [place] [address] [id number] [place] [id number] May, [facility] [place] [address] [id number] [place] [id number] May, [facility] [place] [address] [id number] [place] [id number] Apr, [facility] [place] [address] [id number] [place] [id number] Feb, [facility] [place] [address] [id number] [place] [id number] Feb, [facility] [address] [id number] [address] [place] [id number] Feb, [facility] [place] [address] [id number] [place] [id number] January, [facility] [address] [facility] [id number] [address] [place] [phone] January, [facility] [place] [address] [id number] [place] [id number] January, [facility] [place] [address] [id number] [place] [id number] January, [facility] [place] [address] [id number] [place] [id number] January, [facility] [address] [facility] [id number] [address] [place] [id number] Nov, [facility] [address] [facility] [id number] [address] [place] [id number] Nov, [facility] [place] [address] [id number] [place] [id number] Oct, [facility] [place] [address] [id number] [place] [id number] Oct, [facility] [place] [address] [id number] [place] [id number] Oct, [facility] [place] [address] [id number] [place] [id number] Oct, [facility] [address] [id number] [address] [place] [phone] Oct, [facility] [address] [facility] [id number] [address] [place] [phone] Oct, [facility] [place] [address] [id number] [place] [id number] Sep, [facility] [address] [facility] [id number] [address] [place] [phone] Sep, [facility] [place] [address] [id number] [place] [id number] Sep, [facility] [place] [address] [id number] [place] [id number] Sep, [facility] [place] [address] [id number] [place] [id number] Jun, [facility] [address] [id number] [address] [place] [phone] Jun, [facility] [place] [address] [id number] [place] [id number] May, [facility] [place] [address] [id number] [place] [id number] May, [facility] [place] [address] [id number] [place] [id number] Apr, [facility] [place] [address] [id number] [place] [id number] Apr, [facility] [place] [address] [id number] [place] [id number] Apr, [facility] [place] [address] [id number] [place] [id number] Mar, [facility] [address] [id number] [address] [place] [address], [place] [id number] Feb, [facility] [place] [address] [id number] [place] [id number] Nov, [facility] [place] [address] [id number] [place] [id number] Nov, [facility] [address] [facility] [id number] [address] [place] [phone] Nov, [facility] [address] [facility] [id number] [address] [place] [phone] Nov, [facility] [address] [facility] [id number] [address] [place] [phone] Nov, [facility] [address] [facility] [id number] [place] [id number] Nov, [facility] [address] [facility] [id number] [place], S [id number] Sep, [facility] [address] [facility] [id number] [place], [place] [id number] Sep, IMMUNIZATIONS No Known Immunizations SOCIAL HISTORY [...] [id number] 03/06/2016 Surgical History Hemmroidectomy-Dr. YANG in [place] 2013 Surgical History EGD/Colonoscopy 07/27/18 Hospitalization History surgeries Hospitalization History [facility] for abdominal/chest pain 07/2015 Hospitalization History Inpt for lumbar surgery x's 10 days 02/2015 Hospitalization History Pt was in [facility] home for rehab from surgery, Dx with UTI
--- OUTSIDE RECORDS SUMMARY | 2019-09-07 21:26 | XMS REPORT ---
Author Author Paola CARDENAS [facility] Address [address] [place] [address] Care Team Providers Care Drilling Manager Name Role Phone JULIANO CARDENAS Unavailable PROBLEMS Type Condition ICD9-CM Code UNB15-JZ Code Onset Dates Condition S tatus SNOMED Code Problem Abnormal MRI, lumbar spine R93.7 Act sung 400726695 Problem Hyperlipemia, mixed E78.2 Active 774694643 Problem Esophageal reflux K21.9 Active 24 0092231 Problem Non-seasonal allergic rhinitis due to pollen J30.1 Active 21115998 Problem COPD (chronic obstructive pulmonary disease) J44.9 Active 59315223 Problem Essential hypertension I10 Active 05232222 Problem Acquired hypothyroidism E03.9 Active 995892016 Problem Neuropathy G62.9 Active 130232908 Problem Chronic fatigue R53.82 Active 5270 2003 ALLERGIES No Information ENCOUNTERS Encounter Location Date Diagnosis [place] [id number] [place] [id number] January, Arthralgia of left temporomandibular shaina nt M26.622 [address] [id number] [place] [address] [id number] January, Essential hypertension I10 ; Neuropathy G62.9 and Edema, unspecified type R60.9 [place] [id number] [place] [id number] Sep, [place] [id number] [place] [address] [id number] Sep, COPD (chronic obstructive pulmonary dise ase) J44.9 ; Essential hypertension I10 ; Hyperlipemia, mixed E78.2 ; Acquired hypothyroidism E03.9 ; Esophageal reflux K21.9 ; Midline low back pain, unspecified chronicity, with sciatica presence unspecified M54.5 and Michaelle infection B37.9 [place] [id number], [place] [id number] Sep, Toenail fungus B35.1 [facility] [place] [address] [facility] [id number] [place] [id number] Aug, [facility] [place] [address] [facility] [id number] [place] [id number] Aug, Rhinitis J31.0 [facility] [place] [address] [id number] [id number] Aug, [facility] [place] [address] [facility] [id number] [place] [id number] Aug, [facility] [place] [address] [facility] [id number] [place] [id number] Aug, [facility] [place] [address] [facility] [address] [id number] [id number] Jul, Urinary tract infection, site not specif ied N39.0 and Dysuria R30.[address] [facility] [place] [id number] [place] [address], [place] [id number] Jun, Acquired hypothyroidism E03.9 ; Hyperlip emia, mixed E78.2 ; Essential hypertension I10 ; Esophageal reflux K21.9 ; COPD (chronic obstructive pulmonary disease) J44.9 ; Ingrown toenail L60.0 ; Foot pain, bilateral M79.671 ; Noncompliance by refusing intervention or support Z53.29 ; Colon cancer screening Z12.11 and Rhinitis J31.[address] [facility] [address] [place] [id number] [place] [id number] Jun, Hyperlipemia, mixed E78.2 [facility] [place] [address] [facility] [id number] [place] [id number] Jun, Hypothyroidism, unspecified type E03.9 ; Hyperlipemia, mixed E78.2 ; Essential hypertension I10 and Encounter for immunization Z23 [facility] [place] [address] [facility] [id number] [place] [id number] Jun, [facility] [place] [address] [facility] [id number] [place] [id number] May, Essential hypertension I10 [facility] [place] [address] [id number] [place] [id number] May, Hypothyroidism, unspecified type E03.9 ; Essential hypertension I10 and Hyperlipemia, mixed E78.2 [facility] [place] [address] [id number] [place] [id number] Apr, [facility] [place] [address] [id number] [place] [id number] Apr, Abnormal mammogram of left breast R92.8 [facility] [place] [address] [id number] [place] [id number] Mar, Abnormal mammogram of left breast R92.8 [facility] [place] [address] [id number] [place] [id number] Mar, [facility] [place] [address] [id number] [place] [id number] Mar, [facility] [address] [facility] [id number] [address] [place] [address] Feb, Sore throat and laryngitis J 06.0 and Strep throat J02.[address] [address] [address] [place] [address] [facility] [id number] [address] [place] [address] Dec, [facility] [place] [address] [id number] [place] [id number] Dec, [facility] [place] [address] [id number] [place] [id number] Dec, Dilated pore of Mk of back L70.8 ; Se borrheic keratoses L82.1 and Non- seasonal allergic rhinitis due to pollen J30.[address] [facility] [place] [address] [id number] [place] [id number] Dec, [facility] [place] [address] [facility] [id number] [id number] Oct, [facility] [place] [address] [id number] [place] [id number] Oct, Screening breast examination Z12.31 and History of abnormal mammogram Z87.898 [facility] [place] [address] [id number] [place] [id number] Sep, [facility] [place] [address] [id number] [place] [id number] Sep, [facility] [place] [address] [id number] [place] [id number] Sep, [facility] [place] [address] [id number] [place] [id number] Jun, Obesity (BMI 30.0-34.9) E66.9 ; Chronic fatigue R53.82 ; Neuropathy G62.9 ; Essential hypertension I10 and Encounter for immunization Z23 [facility] [place] [id number] [place] [address], [place] [id number] Jun, Neuropathy G62.9 and Essential hypertens ion I10 [facility] [place] [address] [place] [address] [id number] [place] [id number] Apr, [facility] [place] [id number] [place] [address], [place] [id number] Mar, Neuropathy G62.9 ; Hypothyroidism, unspe cified type E03.9 ; Essential hypertension I10 ; Muscle spasm M62.838 and Hyperlipemia, mixed E78.[address] [address] [place] [id number] [place] [address], [place] [id number] Feb, [facility] [place] [address] [id number] [place] [id number] January, [facility] [place] [id number] [place] [id number] Dec, [facility] [place] [address] [id number] [place] [id number] Dec, Hypothyroidism, unspecified type E03.[address] [address] [place] [address] [id number] [place] [id number] Nov, [facility] [place] [address] [id number] [place] [id number] Nov, Neuropathy G62.9 ; Sinus congestion R09. 81 ; Hyperlipemia, mixed E78.2 and Hypothyroidism, unspecified type E03.9 [facility] [place] [address] [id number] [place] [id number] Nov, Neuropathy G62.[address] [facility] [place] [address] [id number] [place] [id number] Nov, Sinus congestion R09.81 and Acquired hyp othyroidism E03.[address] [place] [address] [id number] [place] [id number] Nov, Acquired hypothyroidism E03.[address] [address] [place] [address] [id number] [place] [id number] Oct, [facility] [place] [address] [id number] [place] [id number] Oct, Sinus congestion R09.81 and Neuropathy G 62.[address] [facility] [place] [address] [id number] [place] [id number] Oct, Fever, unspecified R50.9 ; Sinus congest ion R09.81 and Neuropathy G62.9 [place] [id number] [place] [address] Oct, [facility] [place] [address] [facility] [id number] [place] [id number] Oct, Abnormal mammogram of left breast R92.[address] [facility] [place] [address] [place] [address] [id number] [place] [id number] Sep, Abnormal mammogram R92.[address] [facility] [place] [address] [id number] [place] [id number] Sep, Acquired hypothyroidism E03.[address] [facility] [place] [address] [id number] [place] [id number] Sep, Hypothyroidism, unspecified type E03.9 ; Hyperlipemia, mixed E78.2 and Essential hypertension I[address] [facility] [place] [address] [id number] [place] [id number] Sep, Hypothyroidism, unspecified type E03.9 a nd Hyperlipemia, mixed E78.[address] [facility] [place] [address] [id number] [place] [id number] Aug, Acute maxillary sinusitis, recurrence no t specified J01.00 [facility] [address] [facility] [id number] [place] [id number] Jul, Hyperlipemia, mixed E78.2 [facility] [id number] [place] [address], [place] [id number] Jul, Acquired hypothyroidism E03.9 ; Hyperlip emia, mixed E78.2 ; Multiple joint pain M25.50 ; Esophageal reflux K21.9 ; Otitis media with effusion, right H65.91 and Essential hypertension I10 [facility] [address] [id number] [place] [id number] Jul, Gastroesophageal reflux disease, esophag itis presence not specified K21.9 [facility] [id number] [place] [address], [place] [id number] May, [facility] [address], [place] [id number] Apr, Cystitis N30.90 and Well woman exam Z01. 419 [facility] [id number] [place] [address], [place] [id number] Apr, Hematuria R31.9 and Dysuria R30.0 [facility] [address] [id number] [place] [id number] Apr, [facility] [address] [facility] [id number] [place] [id number] Apr, Urinary tract infection, site not specif ied N39.0 and Hematuria, unspecified R31.9 [facility] [id number] [place] [address], [place] [id number] Dec, [facility] [address] [facility] [id number] [place] [id number] Nov, [facility] [address] [id number] [place] [id number] Oct, Hyperlipemia, mixed E78.2 [facility] [address] [facility] [id number] [place] [id number] Oct, Gastroesophageal reflux disease, esophag itis presence not specified K21.9 ; Acute serous otitis media of left ear, recurrence not specified H65.02 ; Hyperlipemia, mixed E78.2 and Hypothyroidism, unspecified type E03.9 [facility] [address] [facility] [id number] [place], S [id number] Sep, [address] [id number] [place], S [id number] Sep, Actinic keratoses L57.0 and Stuffy and r unny nose J34.[address] [id number] [place], S [id number] Aug, [id number] [place] [address], S [id number] Aug, Acute cystitis with hematuria N30.[address] [place] [address], S [id number] Jul, Reflux esophagitis K21.0 ; Acquired defo rmities of toe, 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 ; Multiple joint pain M25.50 and Sinus congestion R09.81 [address], S [id number] Jul, [address], S [id number] Jun, Acute cystitis without hematuria N30.00 ; Dysuria R30.0 ; Flank pain R10.9 and High risk medication use Z79.899 [place] [id number], S [id number] Jun, Urinary tract infection N39.0 [place] [address] [facility] [address] [id number] [place] [id number] Jun, [address] [id number] [place] [id number] Jun, Urinary tract infection, site not specif ied 599.0 and Encounter for immunization Z23 [facility] [place] [address] [facility] [id number][place] [id number] Jun, [address] [id number] [place] S [id number] May, [address], [place] [id number] Dec, [facility] [address] [id number] [address] [place] [address], [place] [address] Dec, [facility] [address] [facility] [id number] [address] [place] [address] Dec, [facility] [place] [address] [facility] [id number] [place] [id number] Oct, [facility] [address] [id number] [address] [place] [address] Oct, [facility] [place] [address] [id number] [place] [id number] Sep, [facility] [address] [facility] [id number] [address] [place] [address] Sep, [facility] [place] [address] [id number] [place] [id number] Sep, [facility] [address] [facility] [id number] [address] [place] [address], [place] [address] Sep, [facility] [place] [address] [id number] [place] [id number] Aug, [facility] [place] [address] [id number] [place] [id number] Aug, [facility] [address] [facility] [id number] [address] [place] [address], [place] [address] Aug, [facility] [address] [id number] [address] [place] [address], [place] [address] Aug, [facility] [place] [address] [id number] [place] [id number] Aug, [facility] [address] [facility] [id number] [address] [place] [address], [place] [address] Aug, [facility] [place] [address] [id number] [place] [id number] Jul, [facility] [address] [facility] [id number] [address] [place] [address] Jul, [facility] [place] [address] [id number] [place] [id number] Jul, [facility] [address] [id number] [address] [place] [address], [place] [address] Jul, [facility] [place] [address] [id number] [place] [id number] Jul, [facility] [address] [id number] [address] [place] [address], [place] [address] Jul, [facility] [place] [address] [id number] [place] [id number] Jul, [facility] [address] [id number] [address] [place] [address], [place] [address] Jul, [facility] [address] [id number] [address] [place] [address], [place] [address] Jun, [facility] [address] [id number] [address] [place] [address], [place] [address] Jun, [facility] [place] [address] [id number] [place] [id number] Jun, [facility] [address] [id number] [address] [place] [address], [place] [address] Jun, [facility] [address] [id number] [address] [place] [address], [place] [address] Jun, [facility] [place] [address] [id number] [place] [id number] Jun, [facility] [place] [address] [id number] [place] [id number] Jun, [facility] [address] [id number] [address] [place] [address], [place] [address] Jun, [facility] [place] [address] [id number] [place] [id number] Jun, [facility] [address] [id number] [address] [place] [address], [place] [address] Jun, [facility] [place] [address] [id number] [place] [id number] May, [facility] [address] [id number] [facility] [address] May, [facility] [place] [address] [id number] [place] [id number] May, [facility] [address] [id number] [facility] [address] May, [facility] [address] [id number] [address] [place] [address], [place] [address] Apr, [facility] [address] [id number] [address] [place] [address], [place] [address] Apr, [facility] [place] [address] [id number] [place] [id number] Apr, [facility] [address] [id number] [address] [place] [address], [place] [address] Apr, [facility] [place] [address] [id number] [place] [id number] Mar, [facility] [address] [id number] [address] [place] [address], [place] [address] Mar, [facility] [place] [address] [id number] [place] [id number] Feb, [facility] [address] [id number] [address] [place] [address], [place] [address] Feb, [facility] [place] [address] [id number] [place] [id number] January, [facility] [address] [id number] [facility] [address] January, [facility] [place] [address] [id number] [place] [id number] January, [facility] [address] [id number] [facility] [address] January, [facility] [place] [address] [id number] [place] [id number] Dec, [facility] [address] [id number] [address] [place] [address], [place] [address] Dec, [facility] [place] [address] [id number] [place] [id number] Dec, [facility] [address] [id number] [address] [place] [address], [place] [address] Dec, [facility] [place] [address] [id number] [place] [id number] Nov, [facility] [address] [id number] [address] [place] [address], [place] [address] Nov, [facility] [address] [id number] [address] [place] [address], [place] [address] Oct, [facility] [address] [facility] [id number] [address] [place] [address], [place] [address] Oct, [facility] [address] [facility] [id number] [address] [place] [address], [place] [address] Sep, [facility] [place] [address] [id number] [place] [id number] Sep, [facility] [place] [address] [id number] [place] [id number] Sep, [facility] [address] [facility] [id number] [address] [place] [address], [place] [address] Sep, [facility] [place] [address] [id number] [place] [id number] Aug, [facility] [address] [id number] [address] [place] [address], [place] [address] Aug, [facility] [place] [address] [id number] [place] [id number] Jul, [facility] [address] [id number] [address] [place] [address], [place] [address] Jul, [facility] [place] [address] [id number] [place] [id number] Jul, [facility] [address] [id number] [address] [place] [address] Jul, [facility] [place] [address] [id number] [place] [id number] Jul, [facility] [address] [id number] [address] [place] [address], [place] [address] Jul, [facility] [place] [address] [id number] [place] [id number] Jul, [facility] [address] [id number] [address] [place] [address], [place] [address] Jul, [facility] [address] [id number] [address] [place] [address], [place] [address] Jul, [facility] [place] [address] [id number] [place] [id number] Jun, [facility] [address] [id number] [address] [place] [address], [place] [address] Jun, [facility] [place] [address] [id number] [place] [id number] Jun, [facility] [place] [address] [id number] [place] [id number] Jun, [facility] [address] [id number] [address] [place] [address], [place] [address] Jun, [facility] [address] [id number] [address] [place] [address] Jun, [facility] [place] [address] [id number] [place] [id number] Jun, [facility] [address] [id number] [address] [place] [address] Jun, [facility] [address] [id number] [address] [place] [address], [place] [address] Jun, [facility] [place] [address] [id number] [place] [id number] May, [facility] [place] [address] [id number] [place] [id number] May, [facility] [place] [address] [id number] [place] [id number] May, [facility] [place] [address] [id number] [place] [id number] May, [facility] [place] [address] [id number] [place] [id number] Apr, [facility] [place] [address] [id number] [place] [id number] Feb, [facility] [place] [address] [id number] [place] [id number] Feb, [facility] [address] [facility] [id number] [address] [place] [id number] Feb, [facility] [place] [address] [id number] [place] [id number] January, [facility] [address] [place] [id number] [address] [place] [phone] January, [facility] [place] [address] [id number] [place] [id number] January, [facility] [place] [address] [id number] [place] [id number] January, [facility] [place] [address] [id number] [place] [id number] January, [facility] [address] [id number] [address] [place] [id number] Nov, [facility] [address] [facility] [id number] [address] [place] [id number] Nov, [facility] [place] [address] [id number] [place] [id number] Oct, [facility] [place] [address] [id number] [place] [id number] Oct, [facility] [place] [address] [id number] [place] [id number] Oct, [facility] [place] [address] [id number] [place] [id number] Oct, [facility] [address] [place] [id number] [address] [place] [id number] Oct, [facility] [address] [facility] [id number] [address] [place] [phone] Oct, [facility] [place] [address] [id number] [place] [id number] Sep, [facility] [address] [facility] [id number] [address] [place] [id number] Sep, [facility] [place] [address] [id number] [place] [id number] Sep, [facility] [place] [address] [id number] [place] [id number] Sep, [facility] [place] [address] [id number] [place] [id number] Jun, [facility] [address] [facility] [id number] [address] [place] [id number] Jun, [facility] [place] [address] [id number] [place] [id number] May, [facility] [place] [address] [id number] [place] [id number] May, [facility] [place] [address] [id number] [place] [id number] Apr, [facility] [place] [address] [id number] [place] [id number] Apr, [facility] [place] [address] [id number] [place] [id number] Apr, [facility] [place] [address] [id number] [place] [id number] Mar, [facility] [address] [id number] [address] [place] [phone] Feb, [facility] [place] [address] [id number] [place] [id number] Nov, [facility] [place] [address] [id number] [place] [id number] Nov, [facility] [address] [id number] [address] [place] [id number] 12 Nov, 2011 [facility] [address] [facility] [id number] [address] [place] [id number] 10 Nov, 2011 [facility] [address] [facility] [id number] [address] [place] [phone] 10 Nov, 2011 [facility] [address] [facility] [id number] [place] [id number] Nov, [facility] [address] [facility] [id number] [place] [id number] Sep, [facility] [address] [facility] [id number] [place] [id number] Sep, IMMUNIZATIONS No Known Immunizations SOCIAL HISTORY Never Assessed REASON FOR VISIT PLAN OF CARE VITAL SIGNS Height 62 in 2011-12-04 Weight 206 lbs 2011-12-04 Temperature 97.9 degrees Fahrenheit 2011-12-04 Heart Rate 84 bpm 2011-12-04 Respiratory Rate 16 2011-12-04 Blood pressure systolic 122 mmHg 2011-12-04 Blood pressure diastolic 60 mmHg 2011-12-04 MEDICATIONS No Known Medications RESULTS No Results [...] [facility] History [facility] Surgical History EGD/Colonoscopy 07/27/18 Hospitalization History surgeries Hospitalization History [facility] for abdominal/chest pain 07/2015 Hospitalization History Inpt for lumbar surgery x's 10 days 02/2015 Hospitalization History Pt was in [facility] home for rehab from surgery, Dx with UTI
--- OUTSIDE RECORDS SUMMARY | 2019-09-07 21:26 | XMS REPORT ---
Author Author Paola Lucero [facility] Address [address] [place] [address] Care Team Providers Care Funeral Home Assistant Name Role Phone YU Lucero Unavailable PROBLEMS ALLERGIES No Information ENCOUNTERS IMMUNIZATIONS No Known Immunizations SOCIAL HISTORY No smoking Hx information available REASON FOR VISIT PLAN OF CARE VITAL SIGNS MEDICATIONS No Known Medications RESULTS No Results PROCEDURES No Known procedures INSTRUCTIONS MEDICATIONS ADMINISTERED No Known Medications MEDICAL (GENERAL) HISTORY
--- OUTSIDE RECORDS SUMMARY | 2019-09-07 21:26 | XMS REPORT ---
Author Author Paola White Doctor Organization [facility] Address Unknown Phone Unavailable Care Team Providers Care Service Station Manager Name Role Phone Migration, Doctor Unavailable Unavailable PROBLEMS Type Condition ICD9-CM Code NEZ77-CI Code Onset Dates Condition S tatus SNOMED Code Problem Abnormal MRI, lumbar spine R93.7 Act sung 946174953 Problem Hyperlipemia, mixed E78.2 Active 739588697 Problem Esophageal reflux K21.9 Active 24 8627061 Problem Non-seasonal allergic rhinitis due to pollen J30.1 Active 74361322 Problem COPD (chronic obstructive pulmonary disease) J44.9 Active 47998058 Problem Essential hypertension I10 Active 14086207 Problem Acquired hypothyroidism E03.9 Active 694012588 Problem Neuropathy G62.9 Active 054349245 Problem Chronic fatigue R53.82 Active 5270 2003 ALLERGIES No Information ENCOUNTERS Encounter Location Date Diagnosis [id number] [place] [id number] January, Arthralgia of left temporomandibular shaina nt M26.622 [id number] [place] [id number] January, Essential hypertension I10 ; Neuropathy G62.9 and Edema, unspecified type R60.9 [id number] [place] [id number] Sep, [id number] [place] [id number] Sep, COPD (chronic obstructive pulmonary dise ase) J44.9 ; Essential hypertension I10 ; Hyperlipemia, mixed E78.2 ; Acquired hypothyroidism E03.9 ; Esophageal reflux K21.9 ; Midline low back pain, unspecified chronicity, with sciatica presence unspecified M54.5 and Michaelle infection B37.[id number] [place] [id number] Sep, Toenail fungus B35.1 [facility] [place] [address] [facility] [id number] [place] [id number] Aug, [facility] [place] [address] [facility] [id number] [place] [id number] Aug, Rhinitis J31.[address] [facility] [place] [id number] [id number] Aug, [facility] [place] [address] [facility] [id number] [place] [id number] Aug, [facility] [place] [address] [facility] [id number] [place] [id number] Aug, [facility] [address] [address] [id number] [id number] Jul, Urinary tract infection, site not specif ied N39.0 and Dysuria R30.0 [facility] [place] [id number] [place] [id number] Jun, Acquired hypothyroidism E03.9 ; Hyperlip emia, mixed E78.2 ; Essential hypertension I10 ; Esophageal reflux K21.9 ; COPD (chronic obstructive pulmonary disease) J44.9 ; Ingrown toenail L60.0 ; Foot pain, bilateral M79.671 ; Noncompliance by refusing intervention or support Z53.29 ; Colon cancer screening Z12.11 and Rhinitis J31.0 [facility] [place] [id number] [place] [id number] Jun, Hyperlipemia, mixed E78.2 [facility] [place] [id number] [place] [id number] Jun, Hypothyroidism, unspecified type E03.9 ; Hyperlipemia, mixed E78.2 ; Essential hypertension I10 and Encounter for immunization Z23 [facility] [place] [address] [facility] [id number] [place] [id number] Jun, [facility] [place] [address] [facility] [id number] [place] [id number] May, Essential hypertension I10 [facility] [place] [id number] [place] [id number] May, Hypothyroidism, unspecified type E03.9 ; Essential hypertension I10 and Hyperlipemia, mixed E78.2 [facility] [place] [address] [id number] [place] [id number] Apr, [facility] [place] [address] [id number] [place] [id number] Apr, Abnormal mammogram of left breast R92.8 [facility] [place] [address] [id number] [place] [id number] Mar, Abnormal mammogram of left breast R92.8 [facility] [place] [address] [id number] [place] [id number] Mar, [facility] [place] [address] [id number] [place] [id number] Mar, [facility] [address] [facility] [id number] [address] [place] [address] Feb, Sore throat and laryngitis J 06.0 and Strep throat J02.0 [facility] [address] [facility] [id number] [address] [place] [address] Dec, [facility] [place] [address] [id number] [place] [id number] Dec, [facility] [place] [address] [id number] [place] [id number] Dec, Dilated pore of Mk of back L70.8 ; Se borrheic keratoses L82.1 and Non- seasonal allergic rhinitis due to pollen J30.1 [facility] [place] [address] [id number] [place] [id number] Dec, [facility] [place] [address] [id number][place] [id number] Oct, [facility] [place] [address] [id number] [place] [id number] Oct, Screening breast examination Z12.31 and History of abnormal mammogram Z87.898 [facility] [place] [address] [id number] [place] [id number] Sep, [facility] [place] [address] [id number] [place] [id number] Sep, [facility] [place] [address] [id number] [place] [id number] Sep, [facility] [place] [address] [id number] [place] [id number] Jun, Obesity (BMI 30.0-34.9) E66.9 ; Chronic fatigue R53.82 ; Neuropathy G62.9 ; Essential hypertension I10 and Encounter for immunization Z23 [facility] [place] [address] [id number] [place] [id number] Jun, Neuropathy G62.9 and Essential hypertens ion I10 [facility] [place] [address] [id number] [place] [id number] Apr, [facility] [place] [address] [id number] [place] [id number] Mar, Neuropathy G62.9 ; Hypothyroidism, unspe cified type E03.9 ; Essential hypertension I10 ; Muscle spasm M62.838 and Hyperlipemia, mixed E78.2 [facility] [place] [address] [id number] [place] [id number] Feb, [facility] [place] [address] [id number] [place] [id number] January, [facility] [place] [address] [id number] [place] [id number] Dec, [facility] [place] [address] [id number] [place] [id number] Dec, Hypothyroidism, unspecified type E03.9 [facility] [place] [address] [id number] [place] [id number] Nov, [facility] [place] [address] [id number] [place] [id number] Nov, Neuropathy G62.9 ; Sinus congestion R09. 81 ; Hyperlipemia, mixed E78.2 and Hypothyroidism, unspecified type E03.9 [facility] [place] [address] [id number] [place] [id number] Nov, Neuropathy G62.9 [facility] [place] [address] [id number] [place] [id number] Nov, Sinus congestion R09.81 and Acquired hyp othyroidism E03.9 [facility] [place] [id number] [place] [address], [place] [id number] Nov, Acquired hypothyroidism E03.9 [facility] [place] [address] [id number] [place] [id number] Oct, [facility] [place] [address] [id number] [place] [id number] Oct, Sinus congestion R09.81 and Neuropathy G 62.9 [facility] [place] [address] [id number] [place] [id number] Oct, Fever, unspecified R50.9 ; Sinus congest ion R09.81 and Neuropathy G62.9 [facility] [place] [address] [id number] [place] [address] Oct, [facility] [place] [id number] [place] [address], [place] [id number] Oct, Abnormal mammogram of left breast R92.8 [facility] [place] [id number] [place] [address], [place] [id number] Sep, Abnormal mammogram R92.8 [facility] [id number] [place] [address], [place] [id number] Sep, Acquired hypothyroidism E03.9 [facility] [place] [id number] [place] [id number] Sep, Hypothyroidism, unspecified type E03.9 ; Hyperlipemia, mixed E78.2 and Essential hypertension I10 [facility] [place] [address] [id number] [place] [id number] Sep, Hypothyroidism, unspecified type E03.9 a nd Hyperlipemia, mixed E78.2 [facility] [place] [address] [id number] [place] [id number] Aug, Acute maxillary sinusitis, recurrence no t specified J01.00 [facility] [place] [address] [id number] [place] [id number] Jul, Hyperlipemia, mixed E78.2 [facility] [place] [address] [id number] [place] [id number] Jul, Acquired hypothyroidism E03.9 ; Hyperlip emia, mixed E78.2 ; Multiple joint pain M25.50 ; Esophageal reflux K21.9 ; Otitis media with effusion, right H65.91 and Essential hypertension I10 [facility] [place] [address] [id number] [place] [id number] Jul, Gastroesophageal reflux disease, esophag itis presence not specified K21.9 [facility] [place] [address] [id number] [place] [id number] May, [facility] [place] [address] [id number] [place] [id number] Apr, Cystitis N30.90 and Well woman exam Z01. 419 [facility] [place] [address] [id number] [place] [id number] Apr, Hematuria R31.9 and Dysuria R30.0 [facility] [place] [address] [id number] [place] [id number] Apr, [facility] [place] [address] [id number] [place] [id number] Apr, Urinary tract infection, site not specif ied N39.0 and Hematuria, unspecified R31.9 [facility] [place] [address] [id number] [place] [id number] Dec, [facility] [place] [address] [id number] [place] [id number] Nov, [facility] [place] [address] [id number] [place] [id number] Oct, Hyperlipemia, mixed E78.2 [facility] [place] [address] [id number] [place] [id number] Oct, Gastroesophageal reflux disease, esophag itis presence not specified K21.9 ; Acute serous otitis media of left ear, recurrence not specified H65.02 ; Hyperlipemia, mixed E78.2 and Hypothyroidism, unspecified type E03.9 [facility] [place] [address] [id number] [place] [id number] Sep, [facility] [address] [id number] [place] [id number] Sep, Actinic keratoses L57.0 and Stuffy and r unny nose J34.89 [facility] [address] [id number] [place] [id number] Aug, [address] [id number] [place] [address], [place] [id number] Aug, Acute cystitis with hematuria N30.01 [facility] [id number] [place] [id number] Jul, Reflux esophagitis K21.0 ; Acquired defo rmities of toe, 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 ; Multiple joint pain M25.50 and Sinus congestion R09.[address] [id number] Jul, [place] [id number] [place] [id number] Jun, Acute cystitis without hematuria N30.00 ; Dysuria R30.0 ; Flank pain R10.9 and High risk medication use Z79.899 [place] [id number] [place] [id number] Jun, Urinary tract infection N39.0 [place] [address] [facility] [address] [id number] [id number] Jun, [place] [id number] [place] [id number] Jun, Urinary tract infection, site not specif ied 599.0 and Encounter for immunization [facility]23 [facility] [id number] [place] [id number] Jun, [facility] [address] [id number] [place] [id number] May, [place] [id number] [id number] Dec, [facility] [address] [id number] [address] [place] [address], [place] [address] Dec, [facility] [address] [id number] [address] [place] [address], [place] [address] Dec, [facility] [place] [address] [id number] [place] [id number] Oct, [facility] [address] [id number] [address] [place] [address], [place] [address] Oct, [facility] [place] [address] [id number] [place] [id number] Sep, [facility] [address] [id number] [address] [place] [address], [place] [address] Sep, [facility] [place] [address] [id number] [place] [id number] Sep, [facility] [address] [id number] [address] [place] [address], [place] [address] Sep, [facility] [place] [address] [id number] [place] [id number] Aug, [facility] [place] [address] [id number] [place] [id number] Aug, [facility] [address] [facility] [id number] [address] [place] [address], [place] [address] Aug, [facility] [address] [id number] [address] [place] [address], [place] [address] Aug, [facility] [place] [address] [id number] [place] [id number] Aug, [facility] [address] [id number] [address] [place] [address], [place] [address] Aug, [facility] [place] [address] [id number] [place] [id number] Jul, [facility] [address] [id number] [address] [place] [address], [place] [address] Jul, [facility] [place] [address] [id number] [place] [id number] Jul, [facility] [address] [id number] [address] [place] [address], [place] [address] Jul, [facility] [place] [address] [id number] [place] [id number] Jul, [facility] [address] [id number] [address] [place] [address], [place] [address] Jul, [facility] [place] [address] [id number] [place] [id number] Jul, [facility] [address] [id number] [address] [place] [address], [place] [address] Jul, [facility] [address] [id number] [address] [place] [address], [place] [address] Jun, [facility] [address] [id number] [address] [place] [address], [place] [address] Jun, [facility] [place] [address] [id number] [place] [id number] Jun, [facility] [address] [id number] [address] [place] [address], [place] [address] Jun, [facility] [address] [id number] [address] [place] [address], [place] [address] Jun, [facility] [place] [address] [id number] [place] [id number] Jun, [facility] [place] [address] [id number] [place] [id number] Jun, [facility] [address] [id number] [address] [place] [address], [place] [address] Jun, [facility] [place] [address] [id number] [place] [id number] Jun, [facility] [address] [id number] [address] [place] [address], [place] [address] Jun, [facility] [place] [address] [id number] [place] [id number] May, [facility] [address] [id number] [address] [place] [address], [place] [address] May, [facility] [place] [address] [id number] [place] [id number] May, [facility] [address] [id number] 100[facility] [place] [address] May, [facility] [address] [id number] [address] [place] [address], [place] [address] Apr, [facility] [address] [id number] [address] [place] [address], [place] [address] Apr, [facility] [place] [address] [id number] [place] [id number] Apr, [facility] [address] [id number] [address] [place] [address], [place] [address] Apr, [facility] [place] [address] [id number] [place] [id number] Mar, [facility] [address] [id number] [address] [place] [address], [place] [address] Mar, [facility] [place] [address] [id number] [place] [id number] Feb, [facility] [address] [id number] [address] [place] [address], [place] [address] Feb, [facility] [place] [address] [id number] [place] [id number] January, [facility] [address] [id number] [address] [place] [address], [place] [address] January, [facility] [place] [address] [id number] [place] [id number] January, [facility] [address] [id number] [address] [place] [address], [place] [address] January, [facility] [place] [address] [id number] [place] [id number] Dec, [facility] [address] [id number] [address] [place] [address], [place] [address] Dec, [facility] [place] [address] [id number] [place] [id number] Dec, [facility] [address] [id number] [address] [place] [address], [place] [address] Dec, [facility] [place] [address] [id number] [place] [id number] Nov, [facility] [address] [id number] [address] [place] [address], [place] [address] Nov, [facility] [address] [id number] [address] [place] [address], [place] [address] Oct, [facility] [address] [id number] [address] [place] [address], [place] [address] Oct, [facility] [address] [id number] [address] [place] [address], [place] [address] Sep, [facility] [place] [address] [id number] [place] [id number] Sep, [facility] [place] [address] [id number] [place] [id number] Sep, [facility] [address] [id number] [address] [place] [address], [place] [address] Sep, [facility] [place] [address] [id number] [place] [id number] Aug, [facility] [address] [id number] [address] [place] [address], [place] [address] Aug, [facility] [place] [address] [id number] [place] [id number] Jul, [facility] [address] [id number] [address] [place] [address], [place] [address] Jul, [facility] [place] [address] [id number] [place] [id number] Jul, [facility] [address] [id number] [address] [place] [address], [place] [address] Jul, [facility] [place] [address] [id number] [place] [id number] Jul, [facility] [address] [id number] [address] [place] [address], [place] [address] Jul, [facility] [place] [address] [id number] [place] [id number] Jul, [facility] [address] [facility] [id number] [address] [place] [address], [place] [address] Jul, [facility] [address] [id number] [address] [place] [address], [place] [address] Jul, [facility] [place] [address] [id number] [place] [id number] Jun, [facility] [address] [facility] [id number] [address] [place] [address] Jun, [facility] [place] [address] [id number] [place] [id number] Jun, [facility] [place] [address] [id number] [place] [id number] Jun, [facility] [address] [facility] [id number] [address] [place] [address] Jun, [facility] [address] [facility] [id number] [address] [place] [address] Jun, [facility] [place] [address] [id number] [place] [id number] Jun, [facility] [address] [facility] [id number] [address] [place] [address] Jun, [facility] [address] [facility] [id number] [address] [place] [address] Jun, [facility] [place] [address] [id number] [place] [id number] May, [facility] [place] [address] [id number] [place] [id number] May, [facility] [place] [address] [id number] [place] [id number] May, [facility] [place] [address] [id number] [place] [id number] May, [facility] [place] [address] [id number] [place] [id number] Apr, [facility] [place] [address] [id number] [place] [id number] Feb, [facility] [place] [address] [id number] [place] [id number] Feb, [facility] [address] [id number] [address] [place] [id number] Feb, [facility] [place] [address] [id number] [place] [id number] January, [facility] [address] [facility] [id number] [address] [place] [id number] January, [facility] [place] [address] [id number] [place] [id number] January, [facility] [place] [address] [id number] [place] [id number] January, [facility] [place] [address] [id number] [place] [id number] January, [facility] [address] [facility] [id number] [address] [place] [id number] Nov, [facility] [address] [facility] [id number] [address] [place] [id number] Nov, [facility] [place] [address] [id number] [place] [id number] Oct, [facility] [place] [address] [id number] [place] [id number] Oct, [facility] [place] [address] [id number] [place] [id number] Oct, [facility] [place] [address] [id number] [place] [id number] Oct, [facility] [address] [facility] [id number] [address] [place] [id number] Oct, [facility] [address] [id number] [address] [place] [id number] Oct, [facility] [place] [address] [id number] [place] [id number] Sep, [facility] [address] [id number] [address] [place] [id number] Sep, [facility] [place] [address] [id number] [place] [id number] Sep, [facility] [place] [address] [id number] [place] [id number] Sep, [facility] [place] [address] [id number] [place] [id number] Jun, [facility] [address] [id number] [address] [place] [address], [place] [id number] Jun, [facility] [place] [address] [id number] [place] [id number] May, [facility] [place] [address] [id number] [place] [id number] May, [facility] [place] [address] [id number] [place] [id number] Apr, [facility] [place] [address] [id number] [place] [id number] Apr, [facility] [place] [address] [id number] [place] [id number] Apr, [facility] [place] [address] [id number] [place] [id number] Mar, [facility] [address] [id number] [address] [place] [address], [place] [address] Feb, [facility] [place] [address] [id number] [place] [id number] Nov, [facility] [place] [address] [id number] [place] [id number] Nov, [facility] [address] [facility] [id number] [address] [place] [id number] Nov, [facility] [address] [facility] [id number] [address] [address] Nov, [facility] [address] [facility] [id number] [address] [place] [address] 10 Nov, 2011 [facility] [address] [facility] [id number] [place] [id number] Nov, [facility] [address] [facility] [id number] [place] [id number] Sep, [facility] [address] [facility] [id number] [place] [id number] Sep, IMMUNIZATIONS No Known Immunizations SOCIAL HISTORY [...] L4-S1 03/06/2016 Surgical History Hemmroidectomy-Dr. YANG in [place] 2013 Surgical History EGD/Colonoscopy 07/27/18 Hospitalization History surgeries Hospitalization History [facility] for abdominal/chest pain 07/2015 Hospitalization History Inpt for lumbar surgery x's 10 days 02/2015 Hospitalization History Pt was in [facility] home for rehab from surgery, Dx with UTI
--- OUTSIDE RECORDS SUMMARY | 2019-09-07 21:26 | XMS REPORT ---
Author Author Paola CARDENAS [facility] Address [address] [place] [address] Care Team Providers Care Corrugator Supervisor Name Role Phone JULIANO CARDENAS Unavailable PROBLEMS Type Condition ICD9-CM Code BHS80-CY Code Onset Dates Condition S tatus SNOMED Code Problem Abnormal MRI, lumbar spine R93.7 Act sung 122938139 Problem Hyperlipemia, mixed E78.2 Active 494487023 Problem Esophageal reflux K21.9 Active 24 8348427 Problem Non-seasonal allergic rhinitis due to pollen J30.1 Active 70622465 Problem COPD (chronic obstructive pulmonary disease) J44.9 Active 18087936 Problem Essential hypertension I10 Active 05078533 Problem Acquired hypothyroidism E03.9 Active 093448079 Problem Neuropathy G62.9 Active 268840083 Problem Chronic fatigue R53.82 Active 5270 2003 ALLERGIES No Information ENCOUNTERS Encounter Location Date Diagnosis [place] [id number] [id number] January, Arthralgia of left temporomandibular shaina nt M26.622 [place] [id number] [place], [place] [address] [id number] January, Essential hypertension I10 ; Neuropathy G62.9 and Edema, unspecified type R60.9 [place] [id number] [id number] Sep, [place] [id number] [place], [place] [address] [id number] Sep, COPD (chronic obstructive pulmonary dise ase) J44.9 ; Essential hypertension I10 ; Hyperlipemia, mixed E78.2 ; Acquired hypothyroidism E03.9 ; Esophageal reflux K21.9 ; Midline low back pain, unspecified chronicity, with sciatica presence unspecified M54.5 and Michaelle infection B37.9 [place] [id number] [id number] Sep, Toenail fungus B35.1 [facility] [place] [address] [facility] [id number] [place] [id number] Aug, [facility] [place] [address] [facility] [id number] [place] [id number] Aug, Rhinitis J31.0 [facility] [place] [address] [id number] [id number] Aug, [facility] [place] [address] [facility] [id number] [place] [id number] Aug, [facility] [place] [address] [facility] [id number] [place] [id number] Aug, [facility] [place] [address] [facility] [address] [id number] [id number] Jul, Urinary tract infection, site not specif ied N39.0 and Dysuria R30.0 [facility] [place] [id number] [place] [address], [place] [id number] Jun, Acquired hypothyroidism E03.9 ; Hyperlip emia, mixed E78.2 ; Essential hypertension I10 ; Esophageal reflux K21.9 ; COPD (chronic obstructive pulmonary disease) J44.9 ; Ingrown toenail L60.0 ; Foot pain, bilateral M79.671 ; Noncompliance by refusing intervention or support Z53.29 ; Colon cancer screening Z12.11 and Rhinitis J31.0 [facility] [place] [id number] [place] [id number] Jun, Hyperlipemia, mixed E78.2 [facility] [place] [address] [facility] [id number] [place] [id number] Jun, Hypothyroidism, unspecified type E03.9 ; Hyperlipemia, mixed E78.2 ; Essential hypertension I10 and Encounter for immunization Z23 [facility] [place] [address] [facility] [id number] [place] [id number] Jun, [facility] [place] [address] [facility] [id number] [place] [id number] May, Essential hypertension I10 [facility] [place] [address] [id number] [place] [id number] May, Hypothyroidism, unspecified type E03.9 ; Essential hypertension I10 and Hyperlipemia, mixed E78.2 [facility] [place] [address] [id number] [place] [id number] Apr, [facility] [place] [address] [id number] [place] [id number] Apr, Abnormal mammogram of left breast R92.8 [facility] [place] [address] [id number] [place] [id number] Mar, Abnormal mammogram of left breast R92.8 [facility] [place] [address] [id number] [place] [id number] Mar, [facility] [place] [address] [id number] [place] [id number] Mar, [facility] [address] [facility] [id number] [address] [place] [address] Feb, Sore throat and laryngitis J 06.0 and Strep throat J02.0 [facility] [address] [facility] [id number] [address] [place] [address] Dec, [facility] [place] [address] [id number] [place] [id number] Dec, [facility] [place] [address] [id number] [place] [id number] Dec, Dilated pore of Mk of back L70.8 ; Se borrheic keratoses L82.1 and Non- seasonal allergic rhinitis due to pollen J30.1 [facility] [place] [address] [id number] [place] [id number] Dec, [facility] [place] [address] [facility] [id number] [id number] Oct, [facility] [place] [address] [id number] [place] [id number] Oct, Screening breast examination Z12.31 and History of abnormal mammogram Z87.898 [facility] [place] [address] [id number] [place] [id number] Sep, [facility] [place] [address] [id number] [place] [id number] Sep, [facility] [address] [id number] [place] [id number] Sep, [facility] [address] [id number] [place] [id number] Jun, Obesity (BMI 30.0-34.9) E66.9 ; Chronic fatigue R53.82 ; Neuropathy G62.9 ; Essential hypertension I10 and Encounter for immunization Z23 [facility] [id number] [place] [address], [place] [id number] Jun, Neuropathy G62.9 and Essential hypertens ion I10 [facility] [address] [place] [address] [id number] [place] [id number] Apr, [facility] [id number] [place] [address], [place] [id number] Mar, Neuropathy G62.9 ; Hypothyroidism, unspe cified type E03.9 ; Essential hypertension I10 ; Muscle spasm M62.838 and Hyperlipemia, mixed E78.2 [facility] [id number] [place] [address], [place] [id number] Feb, [facility] [place] [address] [id number] [place] [id number] January, [facility] [place] [id number] [place] [id number] Dec, [facility] [address] [id number] [place] [id number] Dec, Hypothyroidism, unspecified type E03.9 [facility] [address] [id number] [place] [id number] Nov, [facility] [address] [id number] [place] [id number] Nov, Neuropathy G62.9 ; Sinus congestion R09. 81 ; Hyperlipemia, mixed E78.2 and Hypothyroidism, unspecified type E03.9 [facility] [address] [place] [address] [id number] [place] [id number] Nov, Neuropathy G62.9 [facility] [address] [id number] [place] [id number] Nov, Sinus congestion R09.81 and Acquired hyp othyroidism E03.9 [facility] [address] [id number] [place] [id number] Nov, Acquired hypothyroidism E03.9 [facility] [address] [id number] [place] [id number] Oct, [facility] [place] [address] [id number] [place] [id number] Oct, Sinus congestion R09.81 and Neuropathy G 62.9 [facility] [address] [place] [address] [id number] [place] [id number] Oct, Fever, unspecified R50.9 ; Sinus congest ion R09.81 and Neuropathy G62.9 [place] [address] [id number] [place] [address] Oct, [facility] [address] [facility] [id number] [place] [id number] Oct, Abnormal mammogram of left breast R92.8 [facility] [address] [place] [id number] [place] [id number] Sep, Abnormal mammogram R92.8 [facility] [address] [place] [address] [id number] [place] [id number] Sep, Acquired hypothyroidism E03.9 [facility] [address] [id number] [place] [id number] Sep, Hypothyroidism, unspecified type E03.9 ; Hyperlipemia, mixed E78.2 and Essential hypertension I10 [facility] [place] [address] [place] [address] [id number] [place] [id number] Sep, Hypothyroidism, unspecified type E03.9 a nd Hyperlipemia, mixed E78.2 [facility] [place] [address] [id number] [place] [id number] Aug, Acute maxillary sinusitis, recurrence no t specified J01.00 [facility] [address] [facility] [id number] [place] [id number] Jul, Hyperlipemia, mixed E78.2 [facility] [id number] [place] [address], [place] [id number] Jul, Acquired hypothyroidism E03.9 ; Hyperlip emia, mixed E78.2 ; Multiple joint pain M25.50 ; Esophageal reflux K21.9 ; Otitis media with effusion, right H65.91 and Essential hypertension I10 [facility] [address] [id number] [place] [id number] Jul, Gastroesophageal reflux disease, esophag itis presence not specified K21.9 [facility] [id number] [place] [address], [place] [id number] May, [facility] [address], [place] [id number] Apr, Cystitis N30.90 and Well woman exam Z01. 419 [facility] [id number] [place] [address], [place] [id number] Apr, Hematuria R31.9 and Dysuria R30.0 [facility] [address] [id number] [place] [id number] Apr, [facility] [address] [facility] [id number] [place] [id number] Apr, Urinary tract infection, site not specif ied N39.0 and Hematuria, unspecified R31.9 [facility] [id number] [place] [address], [place] [id number] Dec, [facility] [address] [facility] [id number] [place] [id number] Nov, [facility] [address] [id number] [place], [place] [id number] Oct, Hyperlipemia, mixed E78.2 [facility] [address] [facility] [id number] [place] [id number] Oct, Gastroesophageal reflux disease, esophag itis presence not specified K21.9 ; Acute serous otitis media of left ear, recurrence not specified H65.02 ; Hyperlipemia, mixed E78.2 and Hypothyroidism, unspecified type E03.9 [facility] [address] [facility] [id number] [place], S [id number] Sep, [address] [id number] [place], S [id number] Sep, Actinic keratoses L57.0 and Stuffy and r unny nose J34.[address] [id number] [place], S [id number] Aug, [address] [place] [address], S [id number] Aug, Acute cystitis with hematuria N30.[address] [place] [address], S [id number] Jul, Reflux esophagitis K21.0 ; Acquired defo rmities of toe, 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 ; Multiple joint pain M25.50 and Sinus congestion R09.[address], S [id number] Jul, [address], S [id number] Jun, Acute cystitis without hematuria N30.00 ; Dysuria R30.0 ; Flank pain R10.9 and High risk medication use Z79.899 [place] [id number], S [id number] Jun, Urinary tract infection N39.0 [place] [address] [facility] [address] [id number] [id number] Jun, [address] [id number] [place] [id number] Jun, Urinary tract infection, site not specif ied 599.0 and Encounter for immunization Z23 [facility] [address] [facility] [id number] [id number] Jun, [address] [id number] [place], [place] [id number] May, [address] [id number] Dec, [facility] [address] [id number] [address] [place] [address], [place] [address] Dec, [facility] [address] [facility] [id number] [address] [place] [address] Dec, [facility] [place] [address] [facility] [id number] [place] [id number] Oct, [facility] [address] [id number] [address] [place] [address] Oct, [facility] [place] [address] [id number] [place] [id number] Sep, [facility] [address] [facility] [id number] [address] [place] [address] Sep, [facility] [place] [address] [id number] [place] [id number] Sep, [facility] [address] [facility] [id number] [address] [place] [address], [place] [address] Sep, [facility] [place] [address] [id number] [place] [id number] Aug, [facility] [place] [address] [id number] [place] [id number] Aug, [facility] [address] [facility] [id number] [address] [place] [address], [place] [address] Aug, [facility] [address] [id number] [address] [place] [address], [place] [address] Aug, [facility] [place] [address] [id number] [place] [id number] Aug, [facility] [address] [facility] [id number] [address] [place] [address], [place] [address] Aug, [facility] [place] [address] [id number] [place] [id number] Jul, [facility] [address] [facility] [id number] [address] [place] [address] Jul, [facility] [place] [address] [id number] [place] [id number] Jul, [facility] [address] [id number] [address] [place] [address], [place] [address] Jul, [facility] [place] [address] [id number] [place] [id number] Jul, [facility] [address] [id number] [address] [place] [address], [place] [address] Jul, [facility] [place] [address] [id number] [place] [id number] Jul, [facility] [address] [id number] [address] [place] [address], [place] [address] Jul, [facility] [address] [id number] [address] [place] [address], [place] [address] Jun, [facility] [address] [id number] [address] [place] [address], [place] [address] Jun, [facility] [place] [address] [id number] [place] [id number] Jun, [facility] [address] [id number] [address] [place] [address], [place] [address] Jun, [facility] [address] [id number] [address] [place] [address], [place] [address] Jun, [facility] [place] [address] [id number] [place] [id number] Jun, [facility] [place] [address] [id number] [place] [id number] Jun, [facility] [address] [id number] [address] [place] [address], [place] [address] Jun, [facility] [place] [address] [id number] [place] [id number] Jun, [facility] [address] [id number] [address] [place] [address], [place] [address] Jun, [facility] [place] [address] [id number] [place] [id number] May, [facility] [address] [id number] [facility] [place] [address] May, [facility] [place] [address] [id number] [place] [id number] May, [facility] [address] [id number] [facility] [place] [address] May, [facility] [address] [id number] [address] [place] [address], [place] [address] Apr, [facility] [address] [id number] [address] [place] [address], [place] [address] Apr, [facility] [place] [address] [id number] [place] [id number] Apr, [facility] [address] [id number] [address] [place] [address], [place] [address] Apr, [facility] [place] [address] [id number] [place] [id number] Mar, [facility] [address] [id number] [address] [place] [address], [place] [address] Mar, [facility] [place] [address] [id number] [place] [id number] Feb, [facility] [address] [id number] [address] [place] [address], [place] [address] Feb, [facility] [place] [address] [id number] [place] [id number] January, [facility] [address] [id number] [facility] [place] [address] January, [facility] [place] [address] [id number] [place] [id number] January, [facility] [address] [id number] [facility] [place] [address] January, [facility] [place] [address] [id number] [place] [id number] Dec, [facility] [address] [id number] [address] [place] [address], [place] [address] Dec, [facility] [place] [address] [id number] [place] [id number] Dec, [facility] [address] [id number] [address] [place] [address], [place] [address] Dec, [facility] [place] [address] [id number] [place] [id number] Nov, [facility] [address] [id number] [address] [place] [address], [place] [address] Nov, [facility] [address] [id number] [address] [place] [address], [place] [address] Oct, [facility] [address] [facility] [id number] [address] [place] [address], [place] [address] Oct, [facility] [address] [facility] [id number] [address] [place] [address], [place] [address] Sep, [facility] [place] [address] [id number] [place] [id number] Sep, [facility] [place] [address] [id number] [place] [id number] Sep, [facility] [address] [facility] [id number] [address] [place] [address], [place] [address] Sep, [facility] [place] [address] [id number] [place] [id number] Aug, [facility] [address] [id number] [address] [place] [address], [place] [address] Aug, [facility] [place] [address] [id number] [place] [id number] Jul, [facility] [address] [id number] [address] [place] [address], [place] [address] Jul, [facility] [place] [address] [id number] [place] [id number] Jul, [facility] [address] [id number] [address] [place] [address] Jul, [facility] [place] [address] [id number] [place] [id number] Jul, [facility] [address] [id number] [address] [place] [address], [place] [address] Jul, [facility] [place] [address] [id number] [place] [id number] Jul, [facility] [address] [id number] [address] [place] [address], [place] [address] Jul, [facility] [address] [id number] [address] [place] [address], [place] [address] Jul, [facility] [place] [address] [id number] [place] [id number] Jun, [facility] [address] [id number] [address] [place] [address], [place] [address] Jun, [facility] [place] [address] [id number] [place] [id number] Jun, [facility] [place] [address] [id number] [place] [id number] Jun, [facility] [address] [id number] [address] [place] [address], [place] [address] Jun, [facility] [address] [id number] [address] [place] [address] Jun, [facility] [place] [address] [id number] [place] [id number] Jun, [facility] [address] [id number] [address] [place] [address] Jun, [facility] [address] [id number] [address] [place] [address], [place] [address] Jun, [facility] [place] [address] [id number] [place] [id number] May, [facility] [place] [address] [id number] [place] [id number] May, [facility] [place] [address] [id number] [place] [id number] May, [facility] [place] [address] [id number] [place] [id number] May, [facility] [place] [address] [id number] [place] [id number] Apr, [facility] [place] [address] [id number] [place] [id number] Feb, [facility] [place] [address] [id number] [place] [id number] Feb, [facility] [address] [facility] [id number] [address] [place] [phone] Feb, [facility] [place] [address] [id number] [place] [id number] January, [facility] [address] [id number] [address] [place] [id number] January, [facility] [place] [address] [id number] [place] [id number] January, [facility] [place] [address] [id number] [place] [id number] January, [facility] [place] [address] [id number] [place] [id number] January, [facility] [address] [id number] [address] [place] [phone] Nov, [facility] [address] [facility] [id number] [address] [place] [phone] Nov, [facility] [place] [address] [id number] [place] [id number] Oct, [facility] [place] [address] [id number] [place] [id number] Oct, [facility] [place] [address] [id number] [place] [id number] Oct, [facility] [place] [address] [id number] [place] [id number] Oct, [facility] [address] [id number] [address] [place] [phone] Oct, [facility] [address] [facility] [id number] [address] [place] [phone] Oct, [facility] [place] [address] [id number] [place] [id number] Sep, [facility] [address] [facility] [id number] [address] [place] [phone] Sep, [facility] [place] [address] [id number] [place] [id number] Sep, [facility] [place] [address] [id number] [place] [id number] Sep, [facility] [place] [address] [id number] [place] [id number] Jun, [facility] [address] [facility] [id number] [address] [place] [phone] Jun, [facility] [place] [address] [id number] [place] [id number] May, [facility] [place] [address] [id number] [place] [id number] May, [facility] [place] [address] [id number] [place] [id number] Apr, [facility] [place] [address] [id number] [place] [id number] Apr, [facility] [place] [address] [id number] [place] [id number] Apr, [facility] [place] [address] [id number] [place] [id number] Mar, [facility] [address] [id number] [address] [place] [phone] Feb, [facility] [place] [address] [id number] [place] [id number] Nov, [facility] [place] [address] [id number] [place] [id number] Nov, [facility] [address] [id number] [address] [place] [id number] 12 Nov, 2011 [facility] [address] [facility] [id number] [address] [place] [id number] 10 Nov, 2011 [facility] [address] [facility] [id number] [address] [place] [id number] 10 Nov, 2011 [facility] [address] [facility] [id number] [place] [id number] Nov, [facility] [address] [facility] [id number] [place] [id number] Sep, [facility] [address] [facility] [id number] [place] [id number] Sep, IMMUNIZATIONS No Known Immunizations SOCIAL HISTORY [...] [id number] 03/06/2016 [facility] Surgical History EGD/Colonoscopy 07/27/18 Hospitalization History surgeries Hospitalization History [facility] for abdominal/chest pain 07/2015 Hospitalization History Inpt for lumbar surgery x's 10 days 02/2015 Hospitalization History Pt was in [facility] home for rehab from surgery, Dx with UTI
--- OUTSIDE RECORDS SUMMARY | 2019-09-07 21:27 | XMS REPORT ---
Author Author Paola CARDENAS [facility] Address [address] [place] [address] Care Team Providers Care Compensator Name Role Phone JULIANO CARDENAS Unavailable PROBLEMS Type Condition ICD9-CM Code WXW10-ZE Code Onset Dates Condition S tatus SNOMED Code Problem Abnormal MRI, lumbar spine R93.7 Act sung 835350660 Problem Hyperlipemia, mixed E78.2 Active 110978497 Problem Esophageal reflux K21.9 Active 24 2905322 Problem Non-seasonal allergic rhinitis due to pollen J30.1 Active 16006577 Problem COPD (chronic obstructive pulmonary disease) J44.9 Active 10407846 Problem Essential hypertension I10 Active 31418925 Problem Acquired hypothyroidism E03.9 Active 060458551 Problem Neuropathy G62.9 Active 216327621 Problem Chronic fatigue R53.82 Active 5270 2003 ALLERGIES No Information ENCOUNTERS Encounter Location Date Diagnosis [place] [id number] [place] [id number] January, Arthralgia of left temporomandibular shaina nt M26.622 [place] [id number] [place], [place] [address], [place] [id number] January, Essential hypertension I10 ; Neuropathy G62.9 and Edema, unspecified type R60.9 [place] [id number] [employer] [id number] Sep, [place] [id number] [place], [place] [address] [id number] Sep, COPD (chronic obstructive pulmonary dise ase) J44.9 ; Essential hypertension I10 ; Hyperlipemia, mixed E78.2 ; Acquired hypothyroidism E03.9 ; Esophageal reflux K21.9 ; Midline low back pain, unspecified chronicity, with sciatica presence unspecified M54.5 and Michaelle infection B37.9 [place] [id number], [place] [id number] Sep, Toenail fungus B35.1 [facility] [place] [address] [facility] [id number] [place] [id number] Aug, [facility] [place] [address] [facility] [id number] [place] [id number] Aug, Rhinitis J31.0 [facility] [place] [address] [id number] [id number] Aug, [facility] [place] [address] [facility] [id number] [place] [id number] Aug, [facility] [place] [address] [facility] [id number] [place] [id number] Aug, [facility] [place] [address] [facility] [address] [id number] [id number] Jul, Urinary tract infection, site not specif ied N39.0 and Dysuria R30.0 [facility] [place] [id number] [place] [address], [place] [id number] Jun, Acquired hypothyroidism E03.9 ; Hyperlip emia, mixed E78.2 ; Essential hypertension I10 ; Esophageal reflux K21.9 ; COPD (chronic obstructive pulmonary disease) J44.9 ; Ingrown toenail L60.0 ; Foot pain, bilateral M79.671 ; Noncompliance by refusing intervention or support Z53.29 ; Colon cancer screening Z12.11 and Rhinitis J31.0 [facility] [place] [id number] [place] [id number] Jun, Hyperlipemia, mixed E78.2 [facility] [place] [address] [facility] [id number] [place] [id number] Jun, Hypothyroidism, unspecified type E03.9 ; Hyperlipemia, mixed E78.2 ; Essential hypertension I10 and Encounter for immunization Z23 [facility] [place] [address] [facility] [id number] [place] [id number] Jun, [facility] [place] [address] [facility] [id number] [place] [id number] May, Essential hypertension I10 [facility] [place] [address] [id number] [place] [id number] May, Hypothyroidism, unspecified type E03.9 ; Essential hypertension I10 and Hyperlipemia, mixed E78.2 [facility] [place] [address] [id number] [place] [id number] Apr, [facility] [place] [address] [id number] [place] [id number] Apr, Abnormal mammogram of left breast R92.8 [facility] [place] [address] [id number] [place] [id number] Mar, Abnormal mammogram of left breast R92.8 [facility] [place] [address] [id number] [place] [id number] Mar, [facility] [place] [address] [id number] [place] [id number] Mar, [facility] [address] [facility] [id number] [address] [place] [address] Feb, Sore throat and laryngitis J 06.0 and Strep throat J02.0 [facility] [address] [facility] [id number] [address] [place] [address] Dec, [facility] [place] [address] [id number] [place] [id number] Dec, [facility] [place] [address] [id number] [place] [id number] Dec, Dilated pore of Mk of back L70.8 ; Se borrheic keratoses L82.1 and Non- seasonal allergic rhinitis due to pollen J30.1 [facility] [place] [address] [id number] [place] [id number] Dec, [facility] [place] [address] [id number] [id number] Oct, [facility] [place] [address] [id number] [place] [id number] Oct, Screening breast examination Z12.31 and History of abnormal mammogram Z87.898 [facility] [place] [address] [id number] [place] [id number] Sep, [facility] [place] [address] [id number] [place] [id number] Sep, [facility] [place] [address] [id number] [place] [id number] Sep, [facility] [place] [address] [id number] [place] [id number] Jun, Obesity (BMI 30.0-34.9) E66.9 ; Chronic fatigue R53.82 ; Neuropathy G62.9 ; Essential hypertension I10 and Encounter for immunization Z23 [facility] [place] [id number] [place] [address], [place] [id number] Jun, Neuropathy G62.9 and Essential hypertens ion I10 [facility] [place] [address] [place] [address] [id number] [place] [id number] Apr, [facility] [place] [id number] [place] [address], [place] [id number] Mar, Neuropathy G62.9 ; Hypothyroidism, unspe cified type E03.9 ; Essential hypertension I10 ; Muscle spasm M62.838 and Hyperlipemia, mixed E78.2 [facility] [place] [id number] [place] [address], [place] [id number] Feb, [facility] [place] [address] [id number] [place] [id number] January, [facility] [place] [id number] [place] [id number] Dec, [facility] [place] [address] [id number] [place] [id number] Dec, Hypothyroidism, unspecified type E03.9 [facility] [place] [address] [id number] [place] [id number] Nov, [facility] [place] [address] [id number] [place] [id number] Nov, Neuropathy G62.9 ; Sinus congestion R09. 81 ; Hyperlipemia, mixed E78.2 and Hypothyroidism, unspecified type E03.9 [facility] [place] [address] [place] [address] [id number] [place] [id number] Nov, Neuropathy G62.9 [facility] [place] [address] [id number] [place] [id number] Nov, Sinus congestion R09.81 and Acquired hyp othyroidism E03.9 [facility] [place] [address] [id number] [place] [id number] Nov, Acquired hypothyroidism E03.9 [facility] [place] [address] [id number] [place] [id number] Oct, [facility] [place] [address] [id number] [place] [id number] Oct, Sinus congestion R09.81 and Neuropathy G 62.9 [facility] [place] [address] [place] [address] [id number] [place] [id number] Oct, Fever, unspecified R50.9 ; Sinus congest ion R09.81 and Neuropathy G62.9 [place] [id number] [place] [address] Oct, [facility] [place] [address] [facility] [id number] [place] [id number] Oct, Abnormal mammogram of left breast R92.8 [facility] [place] [address] [place] [address] [id number] [place] [id number] Sep, Abnormal mammogram R92.8 [facility] [place] [address] [place] [address] [id number] [place] [id number] Sep, Acquired hypothyroidism E03.9 [facility] [place] [address] [id number] [place] [id number] Sep, Hypothyroidism, unspecified type E03.9 ; Hyperlipemia, mixed E78.2 and Essential hypertension I10 [facility] [place] [address] [address] [id number] [place] [id number] Sep, Hypothyroidism, unspecified type E03.9 a nd Hyperlipemia, mixed E78.2 [facility] [place] [address] [id number] [place] [id number] Aug, Acute maxillary sinusitis, recurrence no t specified J01.00 [facility] [address] [facility] [id number] [place] [id number] Jul, Hyperlipemia, mixed E78.2 [facility] [id number] [place] [address], [place] [id number] Jul, Acquired hypothyroidism E03.9 ; Hyperlip emia, mixed E78.2 ; Multiple joint pain M25.50 ; Esophageal reflux K21.9 ; Otitis media with effusion, right H65.91 and Essential hypertension I10 [facility] [address] [id number] [place] [id number] Jul, Gastroesophageal reflux disease, esophag itis presence not specified K21.9 [facility] [id number] [place] [address], [place] [id number] May, [facility] [address], [place] [id number] Apr, Cystitis N30.90 and Well woman exam Z01. 419 [facility] [id number] [place] [address], [place] [id number] Apr, Hematuria R31.9 and Dysuria R30.0 [facility] [address] [id number] [place] [id number] Apr, [facility] [address] [facility] [id number] [place] [id number] Apr, Urinary tract infection, site not specif ied N39.0 and Hematuria, unspecified R31.9 [facility] [id number] [place] [address], [place] [id number] Dec, [facility] [address] [facility] [id number] [place] [id number] Nov, [facility] [address] [id number] [place], [place] [id number] Oct, Hyperlipemia, mixed E78.2 [facility] [address] [facility] [id number] [place] [id number] Oct, Gastroesophageal reflux disease, esophag itis presence not specified K21.9 ; Acute serous otitis media of left ear, recurrence not specified H65.02 ; Hyperlipemia, mixed E78.2 and Hypothyroidism, unspecified type E03.9 [facility] [address] [facility] [id number] [place], S [id number] Sep, [address] [id number] [place], S [id number] Sep, Actinic keratoses L57.0 and Stuffy and r unny nose J34.[address] [id number] [place], S [id number] Aug, [address] [place] [address], S [id number] Aug, Acute cystitis with hematuria N30.[address] [place] [address], S [id number] Jul, Reflux esophagitis K21.0 ; Acquired defo rmities of toe, 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 ; Multiple joint pain M25.50 and Sinus congestion R09.81 [address], S [id number] Jul, [address], S [id number] Jun, Acute cystitis without hematuria N30.00 ; Dysuria R30.0 ; Flank pain R10.9 and High risk medication use Z79.899 [place] [id number], S [id number] Jun, Urinary tract infection N39.0 [place] [address] [facility] [address] [id number] [id number] Jun, [address] [id number] [place] S [id number] Jun, Urinary tract infection, site not specif ied 599.0 and Encounter for immunization Z23 [facility] [place] [address] [facility] [id number] [id number] Jun, [address] [id number] [place], S [id number] May, [address], [place] [id number] Dec, [facility] [address] [id number] [address] [place] [address], [place] [address] Dec, [facility] [address] [facility] [id number] [address] [place] [address] Dec, [facility] [place] [address] [facility] [id number] [place] [id number] Oct, [facility] [address] [id number] [address] [place] [address] Oct, [facility] [place] [address] [id number] [place] [id number] Sep, [facility] [address] [facility] [id number] [address] [place] [address] Sep, [facility] [place] [address] [id number] [place] [id number] Sep, [facility] [address] [facility] [id number] [address] [place] [address], [place] [address] Sep, [facility] [place] [address] [id number] [place] [id number] Aug, [facility] [place] [address] [id number] [place] [id number] Aug, [facility] [address] [facility] [id number] [address] [place] [address], [place] [address] Aug, [facility] [address] [id number] [address] [place] [address], [place] [address] Aug, [facility] [place] [address] [id number] [place] [id number] Aug, [facility] [address] [facility] [id number] [address] [place] [address], [place] [address] Aug, [facility] [place] [address] [id number] [place] [id number] Jul, [facility] [address] [facility] [id number] [address] [place] [address] Jul, [facility] [place] [address] [id number] [place] [id number] Jul, [facility] [address] [id number] [address] [place] [address], [place] [address] Jul, [facility] [place] [address] [id number] [place] [id number] Jul, [facility] [address] [id number] [address] [place] [address], [place] [address] Jul, [facility] [place] [address] [id number] [place] [id number] Jul, [facility] [address] [id number] [address] [place] [address], [place] [address] Jul, [facility] [address] [id number] [address] [place] [address], [place] [address] Jun, [facility] [address] [id number] [address] [place] [address], [place] [address] Jun, [facility] [place] [address] [id number] [place] [id number] Jun, [facility] [address] [id number] [address] [place] [address], [place] [address] Jun, [facility] [address] [id number] [address] [place] [address], [place] [address] Jun, [facility] [place] [address] [id number] [place] [id number] Jun, [facility] [place] [address] [id number] [place] [id number] Jun, [facility] [address] [id number] [address] [place] [address], [place] [address] Jun, [facility] [place] [address] [id number] [place] [id number] Jun, [facility] [address] [id number] [address] [place] [address], [place] [address] Jun, [facility] [place] [address] [id number] [place] [id number] May, [facility] [address] [id number] [facility] [place] [address] May, [facility] [place] [address] [id number] [place] [id number] May, [facility] [address] [id number] [facility] [place] [address] May, [facility] [address] [id number] [address] [place] [address], [place] [address] Apr, [facility] [address] [id number] [address] [place] [address], [place] [address] Apr, [facility] [place] [address] [id number] [place] [id number] Apr, [facility] [address] [id number] [address] [place] [address], [place] [address] Apr, [facility] [place] [address] [id number] [place] [id number] Mar, [facility] [address] [id number] [address] [place] [address], [place] [address] Mar, [facility] [place] [address] [id number] [place] [id number] Feb, [facility] [address] [id number] [address] [place] [address], [place] [address] Feb, [facility] [place] [address] [id number] [place] [id number] January, [facility] [address] [id number] [facility] [place] [address] January, [facility] [place] [address] [id number] [place] [id number] January, [facility] [address] [id number] [facility] [place] [address] January, [facility] [place] [address] [id number] [place] S [id number] Dec, [facility] [address] [id number] [address] [place] [address], [place] [address] Dec, [facility] [place] [address] [id number] [place] [id number] Dec, [facility] [address] [id number] [address] [place] [address], [place] [address] Dec, [facility] [place] [address] [id number] [place] [id number] Nov, [facility] [address] [id number] [address] [place] [address], [place] [address] Nov, [facility] [address] [id number] [address] [place] [address], [place] [address] Oct, [facility] [address] [facility] [id number] [address] [place] [address], [place] [address] Oct, [facility] [address] [facility] [id number] [address] [place] [address], [place] [address] Sep, [facility] [place] [address] [id number] [place] [id number] Sep, [facility] [place] [address] [id number] [place] [id number] Sep, [facility] [address] [facility] [id number] [address] [place] [address], [place] [address] Sep, [facility] [place] [address] [id number] [place] [id number] Aug, [facility] [address] [id number] [address] [place] [address], [place] [address] Aug, [facility] [place] [address] [id number] [place] [id number] Jul, [facility] [address] [id number] [address] [place] [address], [place] [address] Jul, [facility] [place] [address] [id number] [place] [id number] Jul, [facility] [address] [id number] [address] [place] [address] Jul, [facility] [place] [address] [id number] [place] [id number] Jul, [facility] [address] [id number] [address] [place] [address], [place] [address] Jul, [facility] [place] [address] [id number] [place] [id number] Jul, [facility] [address] [id number] [address] [place] [address], [place] [address] Jul, [facility] [address] [id number] [address] [place] [address], [place] [address] Jul, [facility] [place] [address] [id number] [place] [id number] Jun, [facility] [address] [id number] [address] [place] [address], [place] [address] Jun, [facility] [place] [address] [id number] [place] [id number] Jun, [facility] [place] [address] [id number] [place] [id number] Jun, [facility] [address] [id number] [address] [place] [address], [place] [address] Jun, [facility] [address] [id number] [address] [place] [id number] Jun, [facility] [place] [address] [id number] [place] [id number] Jun, [facility] [address] [id number] [address] [place] [id number] Jun, [facility] [address] [id number] [address] [place] [address], [place] [address] Jun, [facility] [place] [address] [id number] [place] [id number] May, [facility] [place] [address] [id number] [place] [id number] May, [facility] [place] [address] [id number] [place] [id number] May, [facility] [place] [address] [id number] [place] [id number] May, [facility] [place] [address] [id number] [place] [id number] Apr, [facility] [place] [address] [id number] [place] [id number] Feb, [facility] [place] [address] [id number] [place] [id number] Feb, [facility] [address] [facility] [id number] [address] [place] [id number] Feb, [facility] [place] [address] [id number] [place] [id number] January, [facility] [address] [id number] [address] [place] [phone] January, [facility] [place] [address] [id number] [place] [id number] January, [facility] [place] [address] [id number] [place] [id number] January, [facility] [place] [address] [id number] [place] [id number] January, [facility] [address] [id number] [address] [place] [id number] Nov, [facility] [address] [facility] [id number] [address] [place] [phone] Nov, [facility] [place] [address] [id number] [place] [id number] Oct, [facility] [place] [address] [id number] [place] [id number] Oct, [facility] [place] [address] [id number] [place] [id number] Oct, [facility] [place] [address] [id number] [place] [id number] Oct, [facility] [address] [id number] [address] [place] [id number] Oct, [facility] [address] [facility] [id number] [address] [place] [id number] Oct, [facility] [place] [address] [id number] [place] [id number] Sep, [facility] [address] [facility] [id number] [address] [place] [id number] Sep, [facility] [place] [address] [id number] [place] [id number] Sep, [facility] [place] [address] [id number] [place] [id number] Sep, [facility] [place] [address] [id number] [place] [id number] Jun, [facility] [address] [facility] [id number] [address] [place] [id number] Jun, [facility] [place] [address] [id number] [place] [id number] May, [facility] [place] [address] [id number] [place] [id number] May, [facility] [place] [address] [id number] [place] [id number] Apr, [facility] [place] [address] [id number] [place] [id number] Apr, [facility] [place] [address] [id number] [place] [id number] Apr, [facility] [place] [address] [id number] [place] [id number] Mar, [facility] [address] [id number] [address] [place] [id number] Feb, [facility] [place] [address] [id number] [place] [id number] Nov, [facility] [place] [address] [id number] [place] [id number] Nov, [facility] [address] [id number] [address] [place] [id number] 12 Nov, 2011 [facility] [address] [facility] [id number] [address] [place] [id number] 10 Nov, 2011 [facility] [address] [facility] [id number] [address] [place] [id number] 10 Nov, 2011 [facility] [address] [facility] [id number] [place] [id number] Nov, [facility] [facility] [address] [facility] [id number] [place], [place] [id number] Sep, [facility] [address] [facility] [id number] [place], S [id number] Sep, IMMUNIZATIONS No Known Immunizations SOCIAL HISTORY [...] [id number] 03/06/2016 [facility] History [facility] Surgical History EGD/Colonoscopy 07/27/18 Hospitalization History surgeries Hospitalization History [facility] for abdominal/chest pain 07/2015 Hospitalization History Inpt for lumbar surgery x's 10 days 02/2015 Hospitalization History Pt was in [facility] home for rehab from surgery, Dx with UTI
--- OUTSIDE RECORDS SUMMARY | 2019-09-07 21:27 | XMS REPORT ---
Author Author Paola Lucero [facility] Address [address] [place] [address] Care Team Providers Care Affiliate Marketing Manager Name Role Phone YU Lucero Unavailable PROBLEMS Type Condition ICD9-CM Code [id number] Code Onset Dates Condition S tatus SNOMED Code Problem Abnormal MRI, lumbar spine R93.7 Act sung 575183394 Problem Hyperlipemia, mixed E78.2 Active 228275796 Problem Esophageal reflux K21.9 Active 24 6098286 Problem Non-seasonal allergic rhinitis due to pollen J30.1 Active 53553123 Problem COPD (chronic obstructive pulmonary disease) J44.9 Active 83274725 Problem Essential hypertension I10 Active 31336428 Problem Acquired hypothyroidism E03.9 Active 267306345 Problem Neuropathy G62.9 Active 330734098 Problem Chronic fatigue R53.82 Active 5270 2003 ALLERGIES No Information ENCOUNTERS Encounter Location Date Diagnosis [place] [id number] [place] [id number] January, Arthralgia of left temporomandibular shaina nt M26.622 [address] [place] [id number] [place], [place] [address], [place] [id number] January, Essential hypertension I10 ; Neuropathy G62.9 and Edema, unspecified type R60.9 [place] [id number] [place] [id number] Sep, [address] [place] [id number] [place], [place] [address], [place] [id number] Sep, COPD (chronic obstructive pulmonary dise ase) J44.9 ; Essential hypertension I10 ; Hyperlipemia, mixed E78.2 ; Acquired hypothyroidism E03.9 ; Esophageal reflux K21.9 ; Midline low back pain, unspecified chronicity, with sciatica presence unspecified M54.5 and Michaelle infection B37.[address] [id number] [place] [id number] Sep, Toenail fungus B35.1 [facility] [place] [address] [facility] [id number] [place] [id number] Aug, [facility] [place] [address] [facility] [id number] [place] [id number] Aug, Rhinitis J31.0 [facility] [place] [id number] [id number] Aug, [facility] [place] [address] [facility] [id number] [place] [id number] Aug, [facility] [place] [address] [facility] [id number] [place] [id number] Aug, [facility] [place] [address] [facility] [address] [id number] [id number] Jul, Urinary tract infection, site not specif ied N39.0 and Dysuria R30.0 [facility] [place] [address] [facility] [id number] [place] [id number] Jun, Acquired hypothyroidism E03.9 ; Hyperlip emia, mixed E78.2 ; Essential hypertension I10 ; Esophageal reflux K21.9 ; COPD (chronic obstructive pulmonary disease) J44.9 ; Ingrown toenail L60.0 ; Foot pain, bilateral M79.671 ; Noncompliance by refusing intervention or support Z53.29 ; Colon cancer screening Z12.[address] [facility] [address] [facility] [id number] [place] [id number] Jun, Hyperlipemia, mixed E78.2 [facility] [place] [address] [facility] [id number] [place] [id number] Jun, Hypothyroidism, unspecified type E03.9 ; Hyperlipemia, mixed E78.2 ; Essential hypertension I10 and Encounter for immunization Z23 [facility] [place] [address] [facility] [id number] [place] [id number] Jun, [facility] [place] [address] [facility] [id number] [place] [id number] May, Essential hypertension I10 [facility] [place] [address] [id number] [place] [id number] May, Hypothyroidism, unspecified type E03.9 ; Essential hypertension I10 and Hyperlipemia, mixed E78.2 [facility] [place] [address] [id number] [place] [id number] Apr, [facility] [place] [address] [id number] [place] [id number] Apr, Abnormal mammogram of left breast R92.8 [facility] [place] [address] [id number] [place] [id number] Mar, Abnormal mammogram of left breast R92.8 [facility] [place] [address] [id number] [place] [id number] Mar, [facility] [place] [address] [id number] [place] [id number] Mar, [facility] [address] [facility] [id number] [address] [place] [address] Feb, Sore throat and laryngitis J 06.0 and Strep throat J02.0 [facility] [address] [facility] [id number] [address] [place] [address] Dec, [facility] [place] [address] [id number] [place] [id number] Dec, [facility] [place] [address] [id number] [place] [id number] Dec, Dilated pore of Mk of back L70.8 ; Se borrheic keratoses L82.1 and Non- seasonal allergic rhinitis due to pollen J30.1 [facility] [place] [address] [id number] [place] [id number] Dec, [facility] [place] [address] [facility] [address] [id number][place] [id number] Oct, [facility] [place] [address] [id number] [place] [id number] Oct, Screening breast examination Z12.31 and History of abnormal mammogram Z87.898 [facility] [place] [address] [address] [id number] [place] [id number] Sep, [facility] [place] [address] [address] [id number] [place] [id number] Sep, [facility] [place] [address] [id number] [place] [id number] Sep, [facility] [place] [id number] [place] [address], [place] [id number] Jun, Obesity (BMI 30.0-34.9) E66.9 ; Chronic fatigue R53.82 ; Neuropathy G62.9 ; Essential hypertension I10 and Encounter for immunization Z23 [facility] [id number] [place] [address], [place] [id number] Jun, Neuropathy G62.9 and Essential hypertens ion I10 [facility] [id number] [place] [id number] Apr, [facility] [place] [id number] [place] [address], [place] [id number] Mar, Neuropathy G62.9 ; Hypothyroidism, unspe cified type E03.9 ; Essential hypertension I10 ; Muscle spasm M62.838 and Hyperlipemia, mixed E78.2 [facility] [id number] [place] [id number] Feb, [facility] [place] [id number] [place] [id number] January, [facility] [place] [id number] [place] [id number] Dec, [facility] [place] [id number] [place] [address], [place] [id number] Dec, Hypothyroidism, unspecified type E03.9 [facility] [place] [address] [address] [id number] [place] [id number] Nov, [facility] [place] [id number] [place] [address], [place] [id number] Nov, Neuropathy G62.9 ; Sinus congestion R09. 81 ; Hyperlipemia, mixed E78.2 and Hypothyroidism, unspecified type E03.9 [facility] [place] [address] [place] [address] [id number] [id number] Nov, Neuropathy G62.9 [facility] [place] [address] [facility] [id number] [place] [id number] Nov, Sinus congestion R09.81 and Acquired hyp othyroidism E03.9 [facility] [place] [address] [facility] [id number] [place] [id number] Nov, Acquired hypothyroidism E03.9 [facility] [place] [address] [id number] [place] [id number] Oct, [facility] [place] [address] [facility] [id number] [place] [id number] Oct, Sinus congestion R09.81 and Neuropathy G 62.9 [place] [id number] [place] [id number] Oct, Fever, unspecified R50.9 ; Sinus congest ion R09.81 and Neuropathy G62.9 [place] [address] [id number] [place] [address] Oct, [facility] [place] [address] [place] [id number] [place] [id number] Oct, Abnormal mammogram of left breast R92.8 [place] [id number] [place] [id number] Sep, Abnormal mammogram R92.8 [place] [address] [facility] [id number] [place] [id number] Sep, Acquired hypothyroidism E03.9 [facility] [place] [address] [facility] [id number] [place] [id number] Sep, Hypothyroidism, unspecified type E03.9 ; Hyperlipemia, mixed E78.2 and Essential hypertension I10 [facility] [id number] [place] [id number] Sep, Hypothyroidism, unspecified type E03.9 a nd Hyperlipemia, mixed E78.2 [facility] [place] [address] [place] [id number] [place] [id number] Aug, Acute maxillary sinusitis, recurrence no t specified J01.00 [facility] [place] [address] [id number] [place] [id number] Jul, Hyperlipemia, mixed E78.2 [facility] [place] [address] [id number] [place] [id number] Jul, Acquired hypothyroidism E03.9 ; Hyperlip emia, mixed E78.2 ; Multiple joint pain M25.50 ; Esophageal reflux K21.9 ; Otitis media with effusion, right H65.91 and Essential hypertension I10 [facility] [place] [address] [id number] [place] [id number] Jul, Gastroesophageal reflux disease, esophag itis presence not specified K21.9 [facility] [place] [address] [id number] [place] [id number] May, [facility] [place] [address] [id number] [place] [id number] Apr, Cystitis N30.90 and Well woman exam Z01. 419 [facility] [place] [address] [id number] [place] [id number] Apr, Hematuria R31.9 and Dysuria R30.0 [facility] [place] [address] [id number] [place] [id number] Apr, [facility] [place] [address] [id number] [place] [id number] Apr, Urinary tract infection, site not specif ied N39.0 and Hematuria, unspecified R31.9 [facility] [place] [address] [id number] [place] [id number] Dec, [facility] [place] [address] [id number] [place] [id number] Nov, [facility] [place] [address] [id number] [place] [id number] Oct, Hyperlipemia, mixed E78.2 [facility] [place] [address] [id number] [place] [id number] Oct, Gastroesophageal reflux disease, esophag itis presence not specified K21.9 ; Acute serous otitis media of left ear, recurrence not specified H65.02 ; Hyperlipemia, mixed E78.2 and Hypothyroidism, unspecified type E03.9 [place] [address] [facility] [id number] [place] [id number] Sep, [address] [id number] [place], S [id number] Sep, Actinic keratoses L57.0 and Stuffy and r unny nose J34.89 [address], [place] [id number] Aug, [address], S [id number] Aug, Acute cystitis with hematuria N30.[address] [place] [address], S [id number] Jul, Reflux esophagitis K21.0 ; Acquired defo rmities of toe, 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 ; Multiple joint pain M25.50 and Sinus congestion R09.81 [address], [place] [id number] Jul, [address], S [id number] Jun, Acute cystitis without hematuria N30.00 ; Dysuria R30.0 ; Flank pain R10.9 and High risk medication use Z79.899 [address], S [id number] Jun, Urinary tract infection N39.0 [facility] [address] [id number], [place] [id number] Jun, [address] [id number] [place] [id number] Jun, Urinary tract infection, site not specif ied 599.0 and Encounter for immunization [facility]23 [facility] [address] [facility] [id number] [facility] [place] [id number] Jun, [place] [id number] [id number] May, [place] [id number] [id number] Dec, [facility] [address] [facility] [id number] [address] [place] [address], [place] [address] Dec, [facility] [address] [facility] [id number] [address] [place] [address], [place] [address] Dec, [facility] [place] [address] [id number] [place] [id number] Oct, [facility] [address] [id number] [address] [place] [address], [place] [address] Oct, [facility] [place] [address] [id number] [place] [id number] Sep, [facility] [address] [facility] [id number] [address] [place] [address], [place] [address] Sep, [facility] [place] [address] [id number] [place] [id number] Sep, [facility] [address] [facility] [id number] [address] [place] [address], [place] [address] Sep, [facility] [place] [address] [id number] [place] [id number] Aug, [facility] [place] [address] [id number] [place] [id number] Aug, [facility] [address] [facility] [id number] [address] [place] [address], [place] [address] Aug, [facility] [address] [id number] [address] [place] [address], [place] [address] Aug, [facility] [place] [address] [id number] [place] [id number] Aug, [facility] [address] [facility] [id number] [address] [place] [address], [place] [address] Aug, [facility] [place] [address] [id number] [place] [id number] Jul, [facility] [address] [facility] [id number] [address] [place] [address], [place] [address] Jul, [facility] [place] [address] [id number] [place] [id number] Jul, [facility] [address] [id number] [address] [place] [address], [place] [address] Jul, [facility] [place] [address] [id number] [place] [id number] Jul, [facility] [address] [id number] [address] [place] [address], [place] [address] Jul, [facility] [place] [address] [id number] [place] [id number] Jul, [facility] [address] [id number] [address] [place] [address], [place] [address] Jul, [facility] [address] [id number] [address] [place] [address], [place] [address] Jun, [facility] [address] [id number] [address] [place] [address], [place] [address] Jun, [facility] [place] [address] [id number] [place] [id number] Jun, [facility] [address] [id number] [address] [place] [address] Jun, [facility] [address] [id number] [address] [place] [address], [place] [address] Jun, [facility] [place] [address] [id number] [place] [id number] Jun, [facility] [place] [address] [id number] [place] [id number] Jun, [facility] [address] [id number] [address] [place] [address], [place] [address] Jun, [facility] [place] [address] [id number] [place] [id number] Jun, [facility] [address] [id number] [address] [place] [address], [place] [address] Jun, [facility] [place] [address] [id number] [place] [id number] May, [facility] [address] [id number] [facility] [place] [address] May, [facility] [place] [address] [id number] [place] [id number] May, [facility] [address] [id number] [facility] [place] [address] May, [facility] [address] [id number] [facility] [place] [address] Apr, [facility] [address] [id number] [address] [place] [address], [place] [address] Apr, [facility] [place] [address] [id number] [place] [id number] Apr, [facility] [address] [id number] [address] [place] [address], [place] [address] Apr, [facility] [place] [address] [id number] [place] [id number] Mar, [facility] [address] [id number] [address] [place] [address], [place] [address] Mar, [facility] [place] [address] [id number] [place] [id number] Feb, [facility] [address] [id number] [facility] [place] [address] Feb, [facility] [place] [address] [id number] [place] [id number] January, [facility] [address] [id number] [facility] [place] [address] January, [facility] [place] [address] [id number] [place] [id number] January, [facility] [address] [id number] [facility] [place] [address] January, [facility] [place] [address] [id number] [place] [id number] Dec, [facility] [address] [id number] [address] [place] [address], [place] [address] Dec, [facility] [place] [address] [id number] [place] [id number] Dec, [facility] [address] [id number] [address] [place] [address], [place] [address] Dec, [facility] [place] [address] [id number] [place] [id number] Nov, [facility] [address] [id number] [address] [place] [address], [place] [address] Nov, [facility] [address] [id number] [address] [place] [address], [place] [address] Oct, [facility] [address] [facility] [id number] [address] [place] [address], [place] [address] Oct, [facility] [address] [id number] [address] [place] [address], [place] [address] Sep, [facility] [place] [address] [id number] [place] [id number] Sep, [facility] [place] [address] [id number] [place] [id number] Sep, [facility] [address] [id number] [address] [place] [address], [place] [address] Sep, [facility] [place] [address] [id number] [place] [id number] Aug, [facility] [address] [id number] [address] [place] [address], [place] [address] Aug, [facility] [place] [address] [id number] [place] [id number] Jul, [facility] [address] [id number] [address] [place] [address], [place] [address] Jul, [facility] [place] [address] [id number] [place] [id number] Jul, [facility] [address] [id number] [address] [place] [address], [place] [address] Jul, [facility] [place] [address] [id number] [place] [id number] Jul, [facility] [address] [id number] [address] [place] [address], [place] [address] Jul, [facility] [place] [address] [id number] [place] [id number] Jul, [facility] [address] [id number] [address] [place] [address], [place] [address] Jul, [facility] [address] [id number] [address] [place] [address], [place] [address] Jul, [facility] [place] [address] [id number] [place] [id number] Jun, [facility] [address] [id number] [address] [place] [address], [place] [address] Jun, [facility] [place] [address] [id number] [place] [id number] Jun, [facility] [place] [address] [id number] [place] K S [id number] Jun, [facility] [address] [id number] [address] [place] [address], [place] [address] Jun, [facility] [address] [id number] [address] [place] [address], [place] [address] Jun, [facility] [place] [address] [id number] [place] [id number] Jun, [facility] [address] [id number] [address] [place] [address], [place] [address] Jun, [facility] [address] [id number] [address] [place] [address], [place] [address] Jun, [facility] [place] [address] [id number] [place] [id number] May, [facility] [place] [address] [id number] [place] [id number] May, [facility] [place] [address] [id number] [place] [id number] May, [facility] [place] [address] [id number] [place] [id number] May, [facility] [place] [address] [id number] [place] [id number] Apr, [facility] [place] [address] [id number] [place] [id number] Feb, [facility] [place] [address] [id number] [place] [id number] Feb, [facility] [address] [id number] [address] [place] [phone] Feb, [facility] [place] [address] [id number] [place] [id number] January, [facility] [address] [facility] [id number] [address] [place] [id number] January, [facility] [place] [address] [id number] [place] [id number] January, [facility] [place] [address] [id number] [place] [id number] January, [facility] [place] [address] [id number] [place] [id number] January, [facility] [address] [facility] [id number] [address] [place] [phone] Nov, [facility] [address] [facility] [id number] [address] [place] [phone] Nov, [facility] [place] [address] [id number] [place] [id number] Oct, [facility] [place] [address] [id number] [place] [id number] Oct, [facility] [place] [address] [id number] [place] [id number] Oct, [facility] [place] [address] [id number] [place] [id number] Oct, [facility] [address] [id number] [address] [place] [phone] Oct, [facility] [address] [facility] [id number] [address] [place] [phone] Oct, [facility] [place] [address] [id number] [place] [id number] Sep, [facility] [address] [facility] [id number] [address] [place] [phone] Sep, [facility] [place] [address] [id number] [place] [id number] Sep, [facility] [place] [address] [id number] [place] [id number] Sep, [facility] [place] [address] [id number] [place] [id number] Jun, [facility] [address] [id number] [address] [place] [phone] Jun, [facility] [place] [address] [id number] [place] [id number] May, [facility] [place] [address] [id number] [place] [id number] May, [facility] [place] [address] [id number] [place] [id number] Apr, [facility] [place] [address] [id number] [place] [id number] Apr, [facility] [place] [address] [id number] [place] [id number] Apr, [facility] [place] [address] [id number] [place] [id number] Mar, [facility] [address] [id number] [place] [address], [place] [phone] Feb, [facility] [place] [address] [id number] [place] [id number] Nov, [facility] [place] [address] [id number] [place] [id number] Nov, [facility] [address] [facility] [id number] [address] [place] [phone] Nov, [facility] [address] [facility] [id number] [address] [place] [phone] Nov, [facility] [address] [facility] [id number] [address] [place] [phone] Nov, [facility] [address] [facility] [id number] [place] [id number] Nov, [facility] [address] [facility] [id number] [place] [id number] Sep, [facility] [address] [facility] [id number] [place] [id number] Sep, IMMUNIZATIONS No Known Immunizations SOCIAL HISTORY Never Assessed REASON FOR VISIT PLAN OF CARE VITAL SIGNS Height 62 in 2014-10-10 Weight 184.01 lbs 2014-10-10 Temperature 98.6 degrees Fahrenheit 2014-10-10 Heart Rate 84 bpm 2014-10-10 Respiratory Rate 18 2014-10-10 Blood pressure systolic 134 mmHg 2014-10-10 Blood pressure diastolic 64 mmHg 2014-10-10 MEDICATIONS No Known Medications RESULTS No Results PROCEDURES Procedure Date Ordered Result Body Site DESTRUCT LESION, -Oct 10, 2014 INSTRUCTIONS MEDICATIONS ADMINISTERED No Known Medications [...] fus ion [id number] 03/06/2016 Surgical History Hemmroidectomy-Dr. YNAG in [place] 2013 Surgical History EGD/Colonoscopy 07/27/18 Hospitalization History surgeries Hospitalization History [facility] for abdominal/chest pain 07/2015 Hospitalization History Inpt for lumbar surgery x's 10 days 02/2015 Hospitalization History Pt was in [facility] home for rehab from surgery, Dx with UTI -03/2016
--- OUTSIDE RECORDS SUMMARY | 2019-09-07 21:27 | XMS REPORT ---
Author Author Paola White Doctor Organization [facility] Address Unknown Phone Unavailable Care Team Providers Care Foil Wrapper Name Role Phone Migration, Doctor Unavailable Unavailable PROBLEMS Type Condition ICD9-CM Code NDR55-FQ Code Onset Dates Condition S tatus SNOMED Code Problem Abnormal MRI, lumbar spine R93.7 Act sung 625587210 Problem Hyperlipemia, mixed E78.2 Active 067768026 Problem Esophageal reflux K21.9 Active 24 5906449 Problem Non-seasonal allergic rhinitis due to pollen J30.1 Active 90621723 Problem COPD (chronic obstructive pulmonary disease) J44.9 Active 95992588 Problem Essential hypertension I10 Active 74332888 Problem Acquired hypothyroidism E03.9 Active 391862227 Problem Neuropathy G62.9 Active 125075915 Problem Chronic fatigue R53.82 Active 5270 2003 ALLERGIES Substance Reaction Event Type Date Status Penicillins Unknown Non Drug Allergy Dec, Active ENCOUNTERS Encounter Location Date Diagnosis [id number] [id number] January, Arthralgia of left temporomandibular shaina nt M26.622 [facility] [address] [id number] [place] [id number] January, Essential hypertension I10 ; Neuropathy G62.9 and Edema, unspecified type R60.9 [place] [address] [id number] [place] [id number] Sep, [place] [address] [id number] [place] [id number] Sep, COPD (chronic obstructive pulmonary dise ase) J44.9 ; Essential hypertension I10 ; Hyperlipemia, mixed E78.2 ; Acquired hypothyroidism E03.9 ; Esophageal reflux K21.9 ; Midline low back pain, unspecified chronicity, with sciatica presence unspecified M54.5 and Michaelle infection B37.9 [facility] [address] [id number] [place] [id number] Sep, Toenail fungus B35.1 [facility] [place] [address] [facility] [id number] [place] [id number] Aug, [facility] [place] [address] [facility] [id number] [place] [id number] Aug, Rhinitis J31.0 [facility] [place] [address] [id number] [id number] Aug, [facility] [place] [address] [facility] [id number] [place] [id number] Aug, [facility] [place] [address] [facility] [id number] [place] [id number] Aug, [facility] [place] [address] [id number] [id number] Jul, Urinary tract infection, site not specif ied N39.0 and Dysuria R30.0 [facility] [address] [place] [id number] [place] [address], [place] [id number] Jun, Acquired hypothyroidism E03.9 ; Hyperlip emia, mixed E78.2 ; Essential hypertension I10 ; Esophageal reflux K21.9 ; COPD (chronic obstructive pulmonary disease) J44.9 ; Ingrown toenail L60.0 ; Foot pain, bilateral M79.671 ; Noncompliance by refusing intervention or support Z53.29 ; Colon cancer screening Z12.11 and Rhinitis J31.0 [place] [id number] [place] [id number] Jun, Hyperlipemia, mixed E78.2 [facility] [place] [address] [facility] [id number] [place] [id number] Jun, Hypothyroidism, unspecified type E03.9 ; Hyperlipemia, mixed E78.2 ; Essential hypertension I10 and Encounter for immunization Z23 [facility] [place] [address] [facility] [id number] [place] [id number] Jun, [facility] [place] [address] [place] [address] [id number] [place] [id number] May, Essential hypertension I10 [facility] [place] [address] [place] [address] [id number] [place] [id number] May, Hypothyroidism, unspecified type E03.9 ; Essential hypertension I10 and Hyperlipemia, mixed E78.2 [facility] [place] [address] [id number] [place] [id number] Apr, [facility] [place] [address] [id number] [place] [id number] Apr, Abnormal mammogram of left breast R92.8 [facility] [place] [address] [id number] [place] [id number] Mar, Abnormal mammogram of left breast R92.8 [facility] [place] [address] [id number] [place] [id number] Mar, [facility] [place] [address] [id number] [place] [id number] Mar, [facility] [address] [facility] [id number] [address] [place] [address] Feb, Sore throat and laryngitis J 06.0 and Strep throat J02.0 [facility] [address] [facility] [id number] [address] [place] [address] Dec, [facility] [place] [address] [id number] [place] [id number] Dec, [facility] [place] [address] [id number] [place] [id number] Dec, Dilated pore of Mk of back L70.8 ; Se borrheic keratoses L82.1 and Non- seasonal allergic rhinitis due to pollen J30.1 [facility] [place] [address] [id number] [place] [id number] Dec, [facility] [place] [address] [id number] [id number] Oct, [facility] [place] [address] [id number] [place] [id number] Oct, Screening breast examination Z12.31 and History of abnormal mammogram Z87.898 [facility] [place] [address] [id number] [place] [id number] Sep, [facility] [place] [address] [id number] [place] [id number] Sep, [facility] [place] [address] [id number] [place] [id number] Sep, [facility] [place] [address] [id number] [place] [id number] Jun, Obesity (BMI 30.0-34.9) E66.9 ; Chronic fatigue R53.82 ; Neuropathy G62.9 ; Essential hypertension I10 and Encounter for immunization Z23 [facility] [place] [address] [id number] [place] [id number] Jun, Neuropathy G62.9 and Essential hypertens ion I10 [facility] [place] [address] [id number] [place] [id number] Apr, [facility] [place] [address] [id number] [place] [id number] Mar, Neuropathy G62.9 ; Hypothyroidism, unspe cified type E03.9 ; Essential hypertension I10 ; Muscle spasm M62.838 and Hyperlipemia, mixed E78.2 [facility] [place] [address] [id number] [place] [id number] Feb, [facility] [place] [address] [id number] [place] [id number] January, [facility] [place] [address] [id number] [place] [id number] Dec, [facility] [place] [address] [id number] [place] [id number] Dec, Hypothyroidism, unspecified type E03.9 [facility] [place] [address] [id number] [place] [id number] Nov, [facility] [place] [address] [id number] [place] [id number] Nov, Neuropathy G62.9 ; Sinus congestion R09. 81 ; Hyperlipemia, mixed E78.2 and Hypothyroidism, unspecified type E03.9 [facility] [place] [address] [id number] [place] [id number] Nov, Neuropathy G62.9 [facility] [place] [address] [id number] [place] [id number] Nov, Sinus congestion R09.81 and Acquired hyp othyroidism E03.9 [facility] [place] [address] [id number] [place] [id number] Nov, Acquired hypothyroidism E03.9 [facility] [place] [address] [id number] [place] [id number] Oct, [facility] [place] [address] [id number] [place] [id number] Oct, Sinus congestion R09.81 and Neuropathy G 62.9 [facility] [place] [address] [place] [id number] [place] [address], [place] [id number] Oct, Fever, unspecified R50.9 ; Sinus congest ion R09.81 and Neuropathy G62.9 [facility] [id number] [place] [address] Oct, [facility] [place] [id number] [place] [id number] Oct, Abnormal mammogram of left breast R92.8 [facility] [place] [address] [place] [id number] [place] [address], [place] [id number] Sep, Abnormal mammogram R92.8 [facility] [place] [id number] [place] [id number] Sep, Acquired hypothyroidism E03.9 [facility] [place] [address] [id number] [place] [id number] Sep, Hypothyroidism, unspecified type E03.9 ; Hyperlipemia, mixed E78.2 and Essential hypertension I10 [facility] [place] [address] [id number] [place] [id number] Sep, Hypothyroidism, unspecified type E03.9 a nd Hyperlipemia, mixed E78.2 [facility] [place] [address] [id number] [place] [id number] Aug, Acute maxillary sinusitis, recurrence no t specified J01.00 [facility] [place] [address] [id number] [place] [id number] Jul, Hyperlipemia, mixed E78.2 [facility] [address] [id number] [place] [id number] Jul, Acquired hypothyroidism E03.9 ; Hyperlip emia, mixed E78.2 ; Multiple joint pain M25.50 ; Esophageal reflux K21.9 ; Otitis media with effusion, right H65.91 and Essential hypertension I10 [facility] [address] [id number] [place] [id number] Jul, Gastroesophageal reflux disease, esophag itis presence not specified K21.9 [facility] [address] [id number] [place] [id number] May, [facility] [address] [id number] Apr, Cystitis N30.90 and Well woman exam Z01. 419 [facility] [address] [place] [id number] [place] [address], [place] [id number] Apr, Hematuria R31.9 and Dysuria R30.0 [facility] [address] [id number] [place] [id number] Apr, [facility] [address], [place] [id number] Apr, Urinary tract infection, site not specif ied N39.0 and Hematuria, unspecified R31.9 [facility] [address] [id number] [place] [id number] Dec, [facility] [place] [address] [id number] [place] [id number] Nov, [facility] [address] [id number] [place] [id number] Oct, Hyperlipemia, mixed E78.2 [facility] [place] [address] [facility] [id number] [place] [id number] Oct, Gastroesophageal reflux disease, esophag itis presence not specified K21.9 ; Acute serous otitis media of left ear, recurrence not specified H65.02 ; Hyperlipemia, mixed E78.2 and Hypothyroidism, unspecified type E03.9 [place] [address] [facility] [id number] [place], S [id number] Sep, [address] [place] [address], S [id number] Sep, Actinic keratoses L57.0 and Stuffy and r unny nose J34.[address] [id number] [place] [id number] Aug, [address] [place] [address], S [id number] Aug, Acute cystitis with hematuria N30.[address] [place] [address], S [id number] Jul, Reflux esophagitis K21.0 ; Acquired defo rmities of toe, 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 ; Multiple joint pain M25.50 and Sinus congestion R09.[address], [place] [id number] Jul, [address], [place] [id number] Jun, Acute cystitis without hematuria N30.00 ; Dysuria R30.0 ; Flank pain R10.9 and High risk medication use Z79.899 [address], [place] [id number] Jun, Urinary tract infection N39.0 [place] [address] [facility] [address] [id number] [id number] Jun, [facility] [address] [facility] [id number] [place] [id number] Jun, Urinary tract infection, site not specif ied 599.0 and Encounter for immunization Z23 [facility] [id number] [place] [id number] Jun, [facility] [address] [facility] [id number] [place] [id number] May, [place] [id number], [place] [id number] Dec, [facility] [address] [id number] [address] [place] [address], [place] [address] Dec, [facility] [address] [id number] [address] [place] [address], [place] [address] Dec, [facility] [place] [address] [id number] [place] [id number] Oct, [facility] [address] [id number] [address] [place] [address], [place] [address] Oct, [facility] [place] [address] [id number] [place] [id number] Sep, [facility] [address] [id number] [address] [place] [address], [place] [address] Sep, [facility] [place] [address] [id number] [place] [id number] Sep, [facility] [address] [id number] [address] [place] [address], [place] [address] Sep, [facility] [place] [address] [id number] [place] [id number] Aug, [facility] [place] [address] [id number] [place] [id number] Aug, [facility] [address] [id number] [address] [place] [address], [place] [address] Aug, [facility] [address] [id number] [address] [place] [address], [place] [address] Aug, [facility] [place] [address] [id number] [place] [id number] Aug, [facility] [address] [id number] [address] [place] [address], [place] [address] Aug, [facility] [place] [address] [id number] [place] [id number] Jul, [facility] [address] [id number] [address] [place] [address], [place] [address] Jul, [facility] [place] [address] [id number] [place] [id number] Jul, [facility] [address] [id number] [facility] [place] [address] Jul, [facility] [place] [address] [id number] [place] [id number] Jul, [facility] [address] [id number] [address] [place] [address], [place] [address] Jul, [facility] [place] [address] [id number] [place] [id number] Jul, [facility] [address] [id number] [address] [place] [address], [place] [address] Jul, [facility] [address] [id number] [address] [place] [address], [place] [address] Jun, [facility] [address] [id number] [address] [place] [address], [place] [address] Jun, [facility] [place] [address] [id number] [place] [id number] Jun, [facility] [address] [id number] [address] [place] [address], [place] [address] Jun, [facility] [address] [id number] [address] [place] [address], [place] [address] Jun, [facility] [place] [address] [id number] [place] [id number] Jun, [facility] [place] [address] [id number] [place] [id number] Jun, [facility] [address] [id number] [address] [place] [address], [place] [address] Jun, [facility] [place] [address] [id number] [place] [id number] Jun, [facility] [address] [id number] [facility] [place] [address] Jun, [facility] [place] [address] [id number] [place] [id number] May, [facility] [address] [id number] [facility] [place] [address] May, [facility] [place] [address] [id number] [place] [id number] May, [facility] [address] [id number] [facility] [place] [address] May, [facility] [address] [id number] [address] [place] [address], [place] [address] Apr, [facility] [address] [id number] [address] [place] [address], [place] [address] Apr, [facility] [place] [address] [id number] [place] [id number] Apr, [facility] [address] [id number] [address] [place] [address], [place] [address] Apr, [facility] [place] [address] [id number] [place] [id number] Mar, [facility] [address] [id number] [address] [place] [address], [place] [address] Mar, [facility] [place] [address] [id number] [place] [id number] Feb, [facility] [address] [id number] [address] [place] [address], [place] [address] Feb, [facility] [place] [address] [id number] [place] [id number] January, [facility] [address] [id number] [address] [place] [address], [place] [address] January, [facility] [place] [address] [id number] [place] [id number] January, [facility] [address] [id number] [address] [place] [address], [place] [address] January, [facility] [place] [address] [id number] [place] [id number] Dec, [facility] [address] [id number] [address] [place] [address], [place] [address] Dec, [facility] [place] [address] [id number] [place] [id number] Dec, [facility] [address] [id number] [address] [place] [address] Dec, [facility] [place] [address] [id number] [place] [id number] Nov, [facility] [address] [id number] [address] [place] [address] Nov, [facility] [address] [id number] [address] [place] [address], [place] [address] Oct, [facility] [address] [facility] [id number] [address] [place] [address] Oct, [facility] [address] [id number] [address] [place] [address] Sep, [facility] [place] [address] [id number] [place] [id number] Sep, [facility] [place] [address] [id number] [place] [id number] Sep, [facility] [address] [id number] [address] [place] [address] Sep, [facility] [place] [address] [id number] [place] [id number] Aug, [facility] [address] [id number] [address] [place] [address], [place] [address] Aug, [facility] [place] [address] [id number] [place] [id number] Jul, [facility] [address] [id number] [address] [place] [address], [place] [address] Jul, [facility] [place] [address] [id number] [place] [id number] Jul, [facility] [address] [facility] [id number] [address] [place] [address], [place] [address] Jul, [facility] [place] [address] [id number] [place] [id number] Jul, [facility] [address] [id number] [address] [place] [address], [place] [address] Jul, [facility] [place] [address] [id number] [place] [id number] Jul, [facility] [address] [id number] [address] [place] [address], [place] [address] Jul, [facility] [address] [id number] [address] [place] [address], [place] [address] Jul, [facility] [place] [address] [id number] [place] [id number] Jun, [facility] [address] [id number] [address] [place] [address], [place] [address] Jun, [facility] [place] [address] [id number] [place] [id number] Jun, [facility] [place] [address] [id number] [place] [id number] Jun, [facility] [address] [id number] [address] [place] [address], [place] [address] Jun, [facility] [address] [facility] [id number] [address] [place] [address], [place] [id number] Jun, [facility] [place] [address] [id number] [place] [id number] Jun, [facility] [address] [id number] [address] [place] [address], [place] [address] Jun, [facility] [address] [id number] [address] [place] [id number] Jun, [facility] [place] [address] [id number] [place] [id number] May, [facility] [place] [address] [id number] [place] [id number] May, [facility] [place] [address] [id number] [place] [id number] May, [facility] [place] [address] [id number] [place] [id number] May, [facility] [place] [address] [id number] [place] [id number] Apr, [facility] [place] [address] [id number] [place] [id number] Feb, [facility] [place] [address] [id number] [place] [id number] Feb, [facility] [address] [id number] [address] [place] [id number] Feb, [facility] [place] [address] [id number] [place] [id number] January, [facility] [id number] [place] [id number] January, [facility] [place] [address] [id number] [place] [id number] January, [facility] [place] [address] [id number] [place] [id number] January, [facility] [place] [address] [id number] [place] [id number] January, [facility] [address] [place] [id number] Nov, [facility] [address] [facility] [id number] [address] [place] [id number] Nov, [facility] [place] [address] [id number] [place] [id number] Oct, [facility] [place] [address] [id number] [place] [id number] Oct, [facility] [place] [address] [id number] [place] [id number] Oct, [facility] [place] [address] [id number] [place] [id number] Oct, [facility] [address] [facility] [id number] [address] [place] [id number] Oct, [facility] [address] [facility] [id number] [address] [place] [id number] Oct, [facility] [place] [address] [id number] [place] [id number] Sep, [facility] [address] [facility] [id number] [address] [place] [id number] Sep, [facility] [place] [address] [id number] [place] [id number] Sep, [facility] [place] [address] [id number] [place] [id number] Sep, [facility] [place] [address] [id number] [place] [id number] Jun, [facility] [address] [facility] [id number] [address] [place] [id number] Jun, [facility] [place] [address] [id number] [place] [id number] May, [facility] [place] [address] [id number] [place] [id number] May, [facility] [place] [address] [id number] [place] [id number] Apr, [facility] [place] [address] [id number] [place] [id number] Apr, [facility] [place] [address] [id number] [place] [id number] Apr, [facility] [place] [address] [id number] [place] [id number] Mar, [facility] [address] [id number] [address] [place] [id number] Feb, [facility] [place] [address] [id number] [place] [id number] Nov, [facility] [place] [address] [id number] [place] [id number] Nov, [facility] [address] [facility] [id number] [address] [place] [id number] Nov, [facility] [address] [facility] [id number] [address] [place] [id number] Nov, [facility] [address] [facility] [id number] [address] [place] [id number] Nov, [facility] [address] [id number] [place] [id number] Nov, [facility] [address] [id number] [place] [id number] Sep, [facility] [address] [id number] [place] [phone] Sep, IMMUNIZATIONS No Known Immunizations SOCIAL HISTORY Never Assessed REASON FOR VISIT [facility] PLAN OF CARE VITAL SIGNS MEDICATIONS Medication Instructions Dosage Frequency Start Date End Date Duration S abhijit levothyroxine 50 mcg 1 tablet by Oral route 1 time per day Aug, Active Hydrochlorothiazide 25 mg 1 tablet by Oral route 1 mauricio e per day Nov, Active Bactrim DS 800-160 mg 1 tablet by Oral route 2 times p er day for 10 day(s) Mar, Active Pseudoephedrine HCl 120 mg 1 Tablet by Oral route 1 ti me per day Oct, Active fluticasone 50 mcg/actuation 2 sprays by Nasal route 1 time per day Jul, Active Cipro 250 mg 1 tablet by Oral route 2 times per day fo r 7 day(s) Nov, Active Doxycycline Hyclate 100 mg take 1 tablet (100 mg) by oral route 2 times per day for 7 days May, Active Omeprazole 20 mg take 1 capsule by Oral route be fore a meal 2 times per day Sep, Active Simvastatin 80 mg Take 1 Tablet by Oral route 1 time per day Aug, Active PredniSONE 20 mg 2 tablet by Oral route 1 time per day for 5 day(s) Sep, Active Fosamax 70 mg 1 tablet by Oral route 1 time per week Jun, Active Cipro 500 mg take 1 tablet by Oral route every 12 hour s for 10 day(s) January, Active Ventolin HFA 90 mcg/actuation inhale 1-2 puff by Inhalation route as needed 2 times per day PRN cough or shortness of breath Aug, Active Flagyl 500 mg take 1 tablet by Ora l route 3 times per day for 10 days Take with full glass of water. No alcohol intake advised for 48 hours. January, Active RESULTS No Results PROCEDURES No Known [...] [id number] 03/06/2016 Surgical History Hemmroidectomy-Dr. YANG in [place] 2013 Surgical History EGD/Colonoscopy 07/27/18 Hospitalization History surgeries Hospitalization History [facility] for abdominal/chest pain 07/2015 Hospitalization History Inpt for lumbar surgery x's 10 days 02/2015 Hospitalization History Pt was in [facility] home for rehab from surgery, Dx with UTI
--- OUTSIDE RECORDS SUMMARY | 2019-09-07 21:27 | XMS REPORT ---
Author Author Paola White Doctor Organization [facility] Address Unknown Phone Unavailable Care Team Providers Care Day Haul Youth Supervisor Name Role Phone Migration, Doctor Unavailable Unavailable PROBLEMS Type Condition ICD9-CM Code NYK05-JY Code Onset Dates Condition S tatus SNOMED Code Problem Abnormal MRI, lumbar spine R93.7 Act sung 387378047 Problem Hyperlipemia, mixed E78.2 Active 051171247 Problem Esophageal reflux K21.9 Active 24 7332332 Problem Non-seasonal allergic rhinitis due to pollen J30.1 Active 69203550 Problem COPD (chronic obstructive pulmonary disease) J44.9 Active 64054729 Problem Essential hypertension I10 Active 23487226 Problem Acquired hypothyroidism E03.9 Active 240554431 Problem Neuropathy G62.9 Active 205693510 Problem Chronic fatigue R53.82 Active 5270 2003 ALLERGIES No Information ENCOUNTERS Encounter Location Date Diagnosis [place] [id number] [employer] [id number] January, Arthralgia of left temporomandibular shaina nt M26.622 [place] [id number] [employer] [id number] January, Essential hypertension I10 ; Neuropathy G62.9 and Edema, unspecified type R60.9 [id number] [id number] Sep, [place] [id number] [id number] Sep, COPD (chronic obstructive pulmonary dise ase) J44.9 ; Essential hypertension I10 ; Hyperlipemia, mixed E78.2 ; Acquired hypothyroidism E03.9 ; Esophageal reflux K21.9 ; Midline low back pain, unspecified chronicity, with sciatica presence unspecified M54.5 and Michaelle infection B37.[id number] [place] [id number] Sep, Toenail fungus B35.1 [facility] [place] [address] [facility] [id number] [place] [id number] Aug, [facility] [place] [address] [facility] [id number] [place] [id number] Aug, Rhinitis J31.[address] [facility] [address] [id number] [id number] Aug, [facility] [place] [address] [facility] [id number] [place] [id number] Aug, [facility] [place] [address] [facility] [id number] [place] [id number] Aug, [facility] [address] [address] [id number][place] [id number] Jul, Urinary tract infection, site not specif ied N39.0 and Dysuria R30.0 [facility] [place] [id number] [place] [id number] Jun, Acquired hypothyroidism E03.9 ; Hyperlip emia, mixed E78.2 ; Essential hypertension I10 ; Esophageal reflux K21.9 ; COPD (chronic obstructive pulmonary disease) J44.9 ; Ingrown toenail L60.0 ; Foot pain, bilateral M79.671 ; Noncompliance by refusing intervention or support Z53.29 ; Colon cancer screening Z12.11 and Rhinitis J31.0 [facility] [place] [id number] [place] [id number] Jun, Hyperlipemia, mixed E78.2 [facility] [place] [id number] [place] [id number] Jun, Hypothyroidism, unspecified type E03.9 ; Hyperlipemia, mixed E78.2 ; Essential hypertension I10 and Encounter for immunization Z23 [facility] [place] [address] [facility] [id number] [place] [id number] Jun, [facility] [place] [address] [facility] [id number] [place] [id number] May, Essential hypertension I10 [facility] [place] [id number] [place] [id number] May, Hypothyroidism, unspecified type E03.9 ; Essential hypertension I10 and Hyperlipemia, mixed E78.2 [facility] [place] [address] [id number] [place] [id number] Apr, [facility] [place] [address] [id number] [place] [id number] Apr, Abnormal mammogram of left breast R92.8 [facility] [place] [address] [id number] [place] [id number] Mar, Abnormal mammogram of left breast R92.8 [facility] [place] [address] [id number] [place] [id number] Mar, [facility] [place] [address] [id number] [place] [id number] Mar, [facility] [address] [facility] [id number] [address] [place] [id number] Feb, Sore throat and laryngitis J 06.0 and Strep throat J02.0 [facility] [address] [facility]NOTE 3] [id number] [address] [place] [address] Dec, [facility] [place] [address] [id number] [place] [id number] Dec, [facility] [place] [address] [id number] [place] [id number] Dec, Dilated pore of Mk of back L70.8 ; Se borrheic keratoses L82.1 and Non- seasonal allergic rhinitis due to pollen J30.1 [facility] [place] [address] [id number] [place] [id number] Dec, [facility] [place] [address] [id number][place] [id number] Oct, [facility] [place] [address] [id number] [place] [id number] Oct, Screening breast examination Z12.31 and History of abnormal mammogram Z87.898 [facility] [place] [address] [id number] [place] [id number] Sep, [facility] [place] [address] [id number] [place] [id number] Sep, [facility] [place] [address] [id number] [place] [id number] Sep, [facility] [place] [address] [id number] [place] [id number] Jun, Obesity (BMI 30.0-34.9) E66.9 ; Chronic fatigue R53.82 ; Neuropathy G62.9 ; Essential hypertension I10 and Encounter for immunization Z23 [facility] [place] [address] [id number] [place] [id number] Jun, Neuropathy G62.9 and Essential hypertens ion I10 [facility] [place] [address] [id number] [place] [id number] Apr, [facility] [place] [address] [id number] [place] [id number] Mar, Neuropathy G62.9 ; Hypothyroidism, unspe cified type E03.9 ; Essential hypertension I10 ; Muscle spasm M62.838 and Hyperlipemia, mixed E78.2 [facility] [place] [address] [id number] [place] [id number] Feb, [facility] [place] [address] [id number] [place] [id number] January, [facility] [place] [address] [id number] [place] [id number] Dec, [facility] [place] [address] [id number] [place] [id number] Dec, Hypothyroidism, unspecified type E03.9 [facility] [place] [address] [id number] [place] [id number] Nov, [facility] [place] [address] [id number] [place] [id number] Nov, Neuropathy G62.9 ; Sinus congestion R09. 81 ; Hyperlipemia, mixed E78.2 and Hypothyroidism, unspecified type E03.9 [facility] [place] [address] [id number] [place] [id number] Nov, Neuropathy G62.9 [facility] [place] [address] [id number] [place] [id number] Nov, Sinus congestion R09.81 and Acquired hyp othyroidism E03.9 [facility] [place] [address] [place] [id number] [place] [address], [place] [id number] Nov, Acquired hypothyroidism E03.9 [facility] [place] [address] [id number] [place] [id number] Oct, [facility] [place] [address] [id number] [place] [id number] Oct, Sinus congestion R09.81 and Neuropathy G 62.9 [facility] [place] [address] [id number] [place] [id number] Oct, Fever, unspecified R50.9 ; Sinus congest ion R09.81 and Neuropathy G62.9 [facility] [place] [address] [facility] [place] [id number] [place] [address] Oct, [facility] [place] [address] [place] [id number] [place] [address], [place] [id number] Oct, Abnormal mammogram of left breast R92.8 [facility] [place] [address] [place] [id number] [place] [address], [place] [id number] Sep, Abnormal mammogram R92.8 [facility] [address] [place] [id number] [place] [address], [place] [id number] Sep, Acquired hypothyroidism E03.9 [facility] [place] [id number] [place] [id number] Sep, Hypothyroidism, unspecified type E03.9 ; Hyperlipemia, mixed E78.2 and Essential hypertension I10 [facility] [place] [address] [id number] [place] [id number] Sep, Hypothyroidism, unspecified type E03.9 a nd Hyperlipemia, mixed E78.2 [facility] [place] [address] [id number] [place] [id number] Aug, Acute maxillary sinusitis, recurrence no t specified J01.00 [facility] [place] [address] [id number] [place] [id number] Jul, Hyperlipemia, mixed E78.2 [facility] [place] [address] [id number] [place] [id number] Jul, Acquired hypothyroidism E03.9 ; Hyperlip emia, mixed E78.2 ; Multiple joint pain M25.50 ; Esophageal reflux K21.9 ; Otitis media with effusion, right H65.91 and Essential hypertension I10 [facility] [place] [address] [id number] [place] [id number] Jul, Gastroesophageal reflux disease, esophag itis presence not specified K21.9 [facility] [place] [address] [id number] [place] [id number] May, [facility] [place] [address] [id number] [place] [id number] Apr, Cystitis N30.90 and Well woman exam Z01. 419 [facility] [place] [address] [id number] [place] [id number] Apr, Hematuria R31.9 and Dysuria R30.0 [facility] [place] [address] [id number] [place] [id number] Apr, [facility] [place] [address] [id number] [place] [id number] Apr, Urinary tract infection, site not specif ied N39.0 and Hematuria, unspecified R31.9 [facility] [place] [address] [id number] [place] [id number] Dec, [facility] [place] [address] [id number] [place] [id number] Nov, [facility] [place] [address] [id number] [place] [id number] Oct, Hyperlipemia, mixed E78.2 [facility] [place] [address] [id number] [place] [id number] Oct, Gastroesophageal reflux disease, esophag itis presence not specified K21.9 ; Acute serous otitis media of left ear, recurrence not specified H65.02 ; Hyperlipemia, mixed E78.2 and Hypothyroidism, unspecified type E03.9 [facility] [place] [address] [id number] [place] [id number] Sep, [facility] [address] [place] [id number] [place] [id number] Sep, Actinic keratoses L57.0 and Stuffy and r unny nose J34.89 [facility] [address] [place] [id number] [place] [id number] Aug, [place] [id number] [place] [address], [place] [id number] Aug, Acute cystitis with hematuria N30.01 [facility] [id number] [place] [id number] Jul, Reflux esophagitis K21.0 ; Acquired defo rmities of toe, 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 ; Multiple joint pain M25.50 and Sinus congestion R09.[id number] [id number] Jul, [place] [id number] [place] [id number] Jun, Acute cystitis without hematuria N30.00 ; Dysuria R30.0 ; Flank pain R10.9 and High risk medication use Z79.899 [place] [id number] [place] [id number] Jun, Urinary tract infection N39.0 [place] [address] [facility] [address] [id number], [place] [id number] Jun, [place] [id number] [place] [id number] Jun, Urinary tract infection, site not specif ied 599.0 and Encounter for immunization [facility]23 [facility] [place] [id number] [place] [id number] Jun, [facility] [address] [place] [id number] [place] [id number] May, [place] [id number] [id number] Dec, [facility] [address] [place] [id number] [address] [place] [address], [place] [address] Dec, [facility] [address] [id number] [address] [place] [address], [place] [address] Dec, [facility] [place] [address] [id number] [place] [id number] Oct, [facility] [address] [id number] [address] [place] [address], [place] [address] Oct, [facility] [place] [address] [id number] [place] [id number] Sep, [facility] [address] [id number] [address] [place] [address], [place] [address] Sep, [facility] [place] [address] [id number] [place] [id number] Sep, [facility] [address] [id number] [address] [place] [address], [place] [address] Sep, [facility] [place] [address] [id number] [place] [id number] Aug, [facility] [place] [address] [id number] [place] [id number] Aug, [facility] [address] [facility]NOTE 3] [id number] [address] [place] [address], [place] [address] Aug, [facility] [address] [id number] [address] [place] [address], [place] [address] Aug, [facility] [place] [address] [id number] [place] [id number] Aug, [facility] [address] [id number] [address] [place] [address], [place] [address] Aug, [facility] [place] [address] [id number] [place] [id number] Jul, [facility] [address] [id number] [address] [place] [address], [place] [address] Jul, [facility] [place] [address] [id number] [place] [id number] Jul, [facility] [address] [id number] [address] [place] [address], [place] [address] Jul, [facility] [place] [address] [id number] [place] [id number] Jul, [facility] [address] [id number] [address] [place] [address], [place] [address] Jul, [facility] [place] [address] [id number] [place] [id number] Jul, [facility] [address] [id number] [address] [place] [address], [place] [address] Jul, [facility] [address] [id number] [address] [place] [address], [place] [address] Jun, [facility] [address] [id number] [address] [place] [address], [place] [address] Jun, [facility] [place] [address] [id number] [place] [id number] Jun, [facility] [address] [id number] [address] [place] [address], [place] [address] Jun, [facility] [address] [id number] [address] [place] [address], [place] [address] Jun, [facility] [place] [address] [id number] [place] [id number] Jun, [facility] [place] [address] [id number] [place] [id number] Jun, [facility] [address] [id number] [address] [place] [address], [place] [address] Jun, [facility] [place] [address] [id number] [place] [id number] Jun, [facility] [address] [id number] [address] [place] [address], [place] [address] Jun, [facility] [place] [address] [id number] [place] [id number] May, [facility] [address] [id number] [address] [place] [address], [place] [address] May, [facility] [place] [address] [id number] [place] [id number] May, [facility] [address] [id number] [facility] [place] [address] May, [facility] [address] [id number] [address] [place] [address], [place] [address] Apr, [facility] [address] [id number] [address] [place] [address], [place] [address] Apr, [facility] [place] [address] [id number] [place] [id number] Apr, [facility] [address] [id number] [address] [place] [address], [place] [address] Apr, [facility] [place] [address] [id number] [place] [id number] Mar, [facility] [address] [id number] [address] [place] [address], [place] [address] Mar, [facility] [place] [address] [id number] [place] [id number] Feb, [facility] [address] [id number] [address] [place] [address], [place] [address] Feb, [facility] [place] [address] [id number] [place] [id number] January, [facility] [address] [id number] [address] [place] [address], [place] [address] January, [facility] [place] [address] [id number] [place] [id number] January, [facility] [address] [id number] [address] [place] [address], [place] [address] January, [facility] [place] [address] [id number] [place] [id number] Dec, [facility] [address] [id number] [address] [place] [address], [place] [address] Dec, [facility] [place] [address] [id number] [place] [id number] Dec, [facility] [address] [id number] [address] [place] [address], [place] [address] Dec, [facility] [place] [address] [id number] [place] [id number] Nov, [facility] [address] [id number] [address] [place] [address], [place] [address] Nov, [facility] [address] [id number] [address] [place] [address], [place] [address] Oct, [facility] [address] [id number] [address] [place] [address], [place] [address] Oct, [facility] [address] [id number] [address] [place] [address], [place] [address] Sep, [facility] [place] [address] [id number] [place] [id number] Sep, [facility] [place] [address] [id number] [place] [id number] Sep, [facility] [address] [id number] [address] [place] [address], [place] [address] Sep, [facility] [place] [address] [id number] [place] [id number] Aug, [facility] [address] [id number] [address] [place] [address], [place] [address] Aug, [facility] [place] [address] [id number] [place] [id number] Jul, [facility] [address] [id number] [address] [place] [address], [place] [address] Jul, [facility] [place] [address] [id number] [place] [id number] Jul, [facility] [address] [id number] [address] [place] [address], [place] [address] Jul, [facility] [place] [address] [id number] [place] [id number] Jul, [facility] [address] [id number] [address] [place] [address], [place] [address] Jul, [facility] [place] [address] [id number] [place] [id number] Jul, [facility] [address] [facility] 3] [id number] [address] [place] [address], [place] [address] Jul, [facility] [address] [id number] [address] [place] [address], [place] [address] Jul, [facility] [place] [address] [id number] [place] [id number] Jun, [facility] [address] [facility] 3] [id number] [address] [place] [address] Jun, [facility] [place] [address] [id number] [place] [id number] Jun, [facility] [place] [address] [id number] [place] [id number] Jun, [facility] [address] [facility]] [id number] [address] [place] [address] Jun, [facility] [address] [facility] 3] [id number] [address] [place] [address] Jun, [facility] [place] [address] [id number] [place] [id number] Jun, [facility] [address] [facility] 3] [id number] [address] [place] [address] Jun, [facility] [address] [facility] 3] [id number] [address] [place] [address] Jun, [facility] [place] [address] [id number] [place] [id number] May, [facility] [place] [address] [id number] [place] [id number] May, [facility] [place] [address] [id number] [place] [id number] May, [facility] [place] [address] [id number] [place] [id number] May, [facility] [place] [address] [id number] [place] [id number] Apr, [facility] [place] [address] [id number] [place] [id number] Feb, [facility] [place] [address] [id number] [place] [id number] Feb, [facility] [address] [id number] [address] [place] [id number] Feb, [facility] [place] [address] [id number] [place] [id number] January, [facility] [address] [facility]NOTE 3] [id number] [address] [place] [address] January, [facility] [place] [address] [id number] [place] [id number] January, [facility] [place] [address] [id number] [place] [id number] January, [facility] [place] [address] [id number] [place] [id number] January, [facility] [address] [facility][NOTE 3] [id number] [address] [place] [phone] Nov, [facility] [address] [facility][NOTE 3] [id number] [address] [place] [phone] Nov, [facility] [place] [address] [id number] [place] [id number] Oct, [facility] [place] [address] [id number] [place] [id number] Oct, [facility] [place] [address] [id number] [place] [id number] Oct, [facility] [place] [address] [id number] [place] [id number] Oct, [facility] [address] [facility]NOTE 3] [id number] [address] [place] [address] Oct, [facility] [address] [id number] [address] [place] [phone] Oct, [facility] [place] [address] [id number] [place] [id number] Sep, [facility] [address] [id number] [address] [place] [phone] Sep, [facility] [place] [address] [id number] [place] [id number] Sep, [facility] [place] [address] [id number] [place] [id number] Sep, [facility] [place] [address] [id number] [place] [id number] Jun, [facility] [address] [id number] [address] [place] [address], [place] [phone] Jun, [facility] [place] [address] [id number] [place] [id number] May, [facility] [place] [address] [id number] [place] [id number] May, [facility] [place] [address] [id number] [place] [id number] Apr, [facility] [place] [address] [id number] [place] [id number] Apr, [facility] [place] [address] [id number] [place] [id number] Apr, [facility] [place] [address] [id number] [place] [id number] Mar, [facility] [address] [id number] [address] [place] [address], [place] [phone] Feb, [facility] [place] [address] [id number] [place] [id number] Nov, [facility] [place] [address] [id number] [place] [id number] Nov, [facility] [address] [facility]NOTE 3] [id number] [address] [place] [phone] Nov, [facility] [address] [facility][NOTE 3] [id number] [address] [place] [address] 10 Nov, 2011 [facility] [address] [facility][NOTE 3] [id number] [address] [place] [address] 10 Nov, 2011 [facility] [address] [facility] [id number] [place] [id number] Nov, [facility] [address] [facility] [id number] [place] [id number] Sep, [facility] [address] [facility] [id number] [place] [id number] Sep, IMMUNIZATIONS No Known Immunizations SOCIAL HISTORY Never Assessed REASON FOR VISIT EMR-[facility] [place] PLAN OF CARE VITAL SIGNS MEDICATIONS No [...] [id number] 03/06/2016 Surgical History Hemmroidectomy-Dr. YANG in [place] 2013 Surgical History EGD/Colonoscopy 07/27/18 Hospitalization History surgeries Hospitalization History [facility] for abdominal/chest pain 07/2015 Hospitalization History Inpt for lumbar surgery x's 10 days 02/2015 Hospitalization History Pt was in [facility] home for rehab from surgery, Dx with UTI
--- OUTSIDE RECORDS SUMMARY | 2019-09-07 21:27 | XMS REPORT ---
Author Author Paola White Doctor Organization [facility] Address Unknown Phone Unavailable Care Team Providers Care Fancy Packer Name Role Phone Migration, Doctor Unavailable Unavailable PROBLEMS Type Condition ICD9-CM Code [id number] Code Onset Dates Condition S tatus SNOMED Code Problem Abnormal MRI, lumbar spine R93.7 Act sung 166945715 Problem Hyperlipemia, mixed E78.2 Active 564012152 Problem Esophageal reflux K21.9 Active 24 2297564 Problem Non-seasonal allergic rhinitis due to pollen J30.1 Active 02133185 Problem COPD (chronic obstructive pulmonary disease) J44.9 Active 95167803 Problem Essential hypertension I10 Active 63782996 Problem Acquired hypothyroidism E03.9 Active 266667476 Problem Neuropathy G62.9 Active 435642425 Problem Chronic fatigue R53.82 Active 5270 [id number] ALLERGIES No Information ENCOUNTERS Encounter Location Date Diagnosis [facility] [address] [id number] [place] [id number] Sep, [facility] [address] [id number] [place] [id number] Sep, COPD (chronic obstructive pulmonary dise ase) J44.9 ; Essential hypertension I10 ; Hyperlipemia, mixed E78.2 ; Acquired hypothyroidism E03.9 ; Esophageal reflux K21.9 ; Midline low back pain, unspecified chronicity, with sciatica presence unspecified M54.5 and Michaelle infection B37.9 [facility] [address] [id number] [place] [id number] Sep, Toenail fungus B35.1 [facility] [address] [id number] [place] [id number] Aug, [facility] [address] [id number] [place] [id number] Aug, Rhinitis J31.0 [facility] [address] [id number] [id number] Aug, [place] [address] [address] [facility] [id number] [place] [id number] Aug, [facility] [address] [facility] [id number] [place] [id number] Aug, [facility] [id number] [place] [id number] Jul, Urinary tract infection, site not specif ied N39.0 and Dysuria R30.0 [facility] [address] [facility] [id number] [place] [id number] Jun, Acquired hypothyroidism E03.9 ; Hyperlip emia, mixed E78.2 ; Essential hypertension I10 ; Esophageal reflux K21.9 ; COPD (chronic obstructive pulmonary disease) J44.9 ; Ingrown toenail L60.0 ; Foot pain, bilateral M79.671 ; Noncompliance by refusing intervention or support Z53.29 ; Colon cancer screening Z12.11 and Rhinitis J31.0 [facility] [address] [facility] [id number] [place] [id number] Jun, Hyperlipemia, mixed E78.2 [facility] [address] [place] [id number] [place] [id number] Jun, Hypothyroidism, unspecified type E03.9 ; Hyperlipemia, mixed E78.2 ; Essential hypertension I10 and Encounter for immunization Z23 [facility] [id number] [place] [id number] Jun, [facility] [address] [facility] [id number] [place] [id number] May, Essential hypertension I10 [facility] [address] [facility] [id number] [place] [id number] May, Hypothyroidism, unspecified type E03.9 ; Essential hypertension I10 and Hyperlipemia, mixed E78.2 [facility] [address] [place] [address] [id number] [place] [id number] Apr, [facility] [address] [facility] [id number] [place] [id number] Apr, Abnormal mammogram of left breast R92.8 [facility] [address] [id number] [place] [id number] Mar, Abnormal mammogram of left breast R92.8 [facility] [place] [address] [id number] [place] [id number] Mar, [facility] [place] [address] [id number] [place] [id number] Mar, [facility] [address] [facility] [id number] [place], [place] [address] Feb, Sore throat and laryngitis J 06.0 and Strep throat J02.0 [facility] [address] [facility] [id number] 100[place] [address] Dec, [facility] [place] [address] [id number] [place] [id number] Dec, [facility] [place] [address] [id number] [place] [id number] Dec, Dilated pore of Mk of back L70.8 ; Se borrheic keratoses L82.1 and Non- seasonal allergic rhinitis due to pollen J30.1 [facility] [place] [address] [id number] [place] [id number] Dec, [facility] [address] [id number] [id number] Oct, [facility] [place] [address] [id number] [place] [id number] Oct, Screening breast examination Z12.31 and History of abnormal mammogram Z87.898 [facility] [place] [address] [id number] [place] [id number] Sep, [facility] [place] [address] [id number] [place] [id number] Sep, [facility] [place] [address] [id number] [place] [id number] Sep, [facility] [place] [address] [id number] [place] [id number] Jun, Obesity (BMI 30.0-34.9) E66.9 ; Chronic fatigue R53.82 ; Neuropathy G62.9 ; Essential hypertension I10 and Encounter for immunization Z23 [facility] [place] [address] [id number] [place] [id number] Jun, Neuropathy G62.9 and Essential hypertens ion I10 [facility] [place] [address] [id number] [place] [id number] Apr, [facility] [place] [id number] [place] [address], [place] [id number] Mar, Neuropathy G62.9 ; Hypothyroidism, unspe cified type E03.9 ; Essential hypertension I10 ; Muscle spasm M62.838 and Hyperlipemia, mixed E78.2 [facility] [place] [id number] [place] [address], [place] [id number] Feb, [facility] [place] [address] [id number] [place] [id number] January, [facility] [place] [address] [place] [address], [place] [id number] Dec, [facility] [place] [address] [id number] [place] [id number] Dec, Hypothyroidism, unspecified type E03.9 [facility] [place] [address] [id number] [place] [id number] Nov, [facility] [place] [address] [id number] [place] [id number] Nov, Neuropathy G62.9 ; Sinus congestion R09. 81 ; Hyperlipemia, mixed E78.2 and Hypothyroidism, unspecified type E03.9 [facility] [place] [address] [id number] [place] [id number] Nov, Neuropathy G62.9 [facility] [place] [address] [id number] [place] [id number] Nov, Sinus congestion R09.81 and Acquired hyp othyroidism E03.9 [facility] [place] [address] [id number] [place] [id number] Nov, Acquired hypothyroidism E03.9 [facility] [place] [address] [id number] [place] [id number] Oct, [facility] [place] [address] [facility] [id number] [place] [id number] Oct, Sinus congestion R09.81 and Neuropathy G 62.9 [place] [address] [id number] [place] [id number] Oct, 2016 Fever, unspecified R50.9 ; Sinus congest ion R09.81 and Neuropathy G62.9 [place] [address] [id number] [place] [address] Oct, [facility] [place] [address] [facility] [id number] [place] [id number] Oct, Abnormal mammogram of left breast R92.8 [address] [id number] Sep, Abnormal mammogram R92.8 [address] [place] [address], [place] [id number] Sep, Acquired hypothyroidism E03.9 [address] [id number] Sep, Hypothyroidism, unspecified type E03.9 ; Hyperlipemia, mixed E78.2 and Essential hypertension I10 [address] [id number] Sep, Hypothyroidism, unspecified type E03.9 a nd Hyperlipemia, mixed E78.2 [address] [place] [address], [place] [id number] Aug, Acute maxillary sinusitis, recurrence no t specified J01.00 [place] [id number] [id number] Jul, Hyperlipemia, mixed E78.2 [facility] [address]65100[facility] [id number] Jul, Acquired hypothyroidism E03.9 ; Hyperlip emia, mixed E78.2 ; Multiple joint pain M25.50 ; Esophageal reflux K21.9 ; Otitis media with effusion, right H65.91 and Essential hypertension I10 [address] [place] [address], [place] [id number] Jul, Gastroesophageal reflux disease, esophag itis presence not specified K21.9 [facility] [place] [address] [id number] [place] [id number] May, [facility] [place] [address] [id number] [place] [id number] Apr, Cystitis N30.90 and Well woman exam Z01. 419 [facility] [address] [id number] [place] [id number] Apr, Hematuria R31.9 and Dysuria R30.0 [facility] [address] [id number] [place] [id number] Apr, [facility] [address] [id number] [place] [id number] Apr, Urinary tract infection, site not specif ied N39.0 and Hematuria, unspecified R31.9 [facility] [address] [id number] [place] [id number] Dec, [facility] [place] [address] [id number] [place] [id number] Nov, [facility] [address] [id number] [place] [id number] Oct, Hyperlipemia, mixed E78.2 [facility] [address] [id number] [place] [id number] Oct, Gastroesophageal reflux disease, esophag itis presence not specified K21.9 ; Acute serous otitis media of left ear, recurrence not specified H65.02 ; Hyperlipemia, mixed E78.2 and Hypothyroidism, unspecified type E03.9 [facility] [address] [id number] [place] [id number] Sep, [facility] [address] [id number] [place] [id number] Sep, Actinic keratoses L57.0 and Stuffy and r unny nose J34.89 [facility] [address] [id number] [place] [id number] Aug, [facility] [address] [facility] [id number] [place] [id number] Aug, Acute cystitis with hematuria N30.01 [facility] [address] [facility] [id number] [place] [id number] Jul, Reflux esophagitis K21.0 ; Acquired defo rmities of toe, 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 ; Multiple joint pain M25.50 and Sinus congestion R09.81 [facility] 120 [facility] [id number] [place] [id number] Jul, [facility] 120 [facility] [id number] [place] [id number] Jun, Acute cystitis without hematuria N30.00 ; Dysuria R30.0 ; Flank pain R10.9 and High risk medication use Z79.899 [facility] 120 [facility] [id number] [place] [id number] Jun, Urinary tract infection N39.0 [facility] [address] [address] [id number] [id number] Jun, [facility] 120 [facility] [id number] [place] [id number] Jun, Urinary tract infection, site not specif ied 599.0 and Encounter for immunization [facility]23 [facility] [address] [facility] [id number] [place] [id number] Jun, [facility] 120 [facility] [id number] [place] [id number] May, [address] [id number] [place] [id number] Dec, [facility] [address] [facility] [id number] [address] [place] [address] Dec, [facility] [address] [place] [id number] [address] [place] [address] Dec, [address] [id number] [place] [id number] Oct, [facility] [address] [place] [address], [place] [address] Oct, [facility] [place] [address] [id number] [place] [id number] Sep, [facility] [address] [id number] [address] [place] [address], [place] [address] Sep, [facility] [place] [address] [id number] [place] [id number] Sep, [facility] [address] [id number] [address] [place] [address], [place] [address] Sep, [facility] [place] [address] [id number] [place] [id number] Aug, [facility] [place] [address] [id number] [place] [id number] Aug, [facility] [address] [facility] [id number] [address] [place] [address], [place] [address] Aug, [facility] [address] [id number] [address] [place] [address], [place] [address] Aug, [facility] [place] [address] [id number] [place] [id number] Aug, [facility] [address] [id number] [address] [place] [address] Aug, [facility] [place] [address] [id number] [place] [id number] Jul, [facility] [address] [id number] [address] [place] [address], [place] [address] Jul, [facility] [place] [address] [id number] [place] [id number] Jul, [facility] [address] [id number] [address] [place] [address], [place] [address] Jul, [facility] [place] [address] [id number] [place] [id number] Jul, [facility] [address] [facility] [id number] [address] [place] [address], [place] [address] Jul, [facility] [place] [address] [id number] [place] [id number] Jul, [facility] [address] [id number] [address] [place] [address], [place] [address] Jul, [facility] [address] [id number] [address] [place] [address], [place] [address] Jun, [facility] [address] [id number] [address] [place] [address], [place] [address] Jun, [facility] [place] [address] [id number] [place] [id number] Jun, [facility] [address] [id number] [address] [place] [address], [place] [address] Jun, [facility] [address] [id number] [address] [place] [address], [place] [address] Jun, [facility] [place] [address] [id number] [place] [id number] Jun, [facility] [place] [address] [id number] [place] [id number] Jun, [facility] [address] [id number] [address] [place] [address], [place] [address] Jun, [facility] [place] [address] [id number] [place] [id number] Jun, [facility] [address] [id number] [address] [place] [address], [place] [address] Jun, [facility] [place] [address] [id number] [place] [id number] May, [facility] [address] [id number] [address] [place] [address], [place] [address] May, [facility] [place] [address] [id number] [place] [id number] May, [facility] [address] [id number] [address] [place] [address], [place] [address] May, [facility] [address] [id number] [facility] [place] [address] Apr, [facility] [address] [id number] [facility] [place] [address] Apr, [facility] [place] [address] [id number] [place] [id number] Apr, [facility] [address] [id number] [facility] [place] [address] Apr, [facility] [place] [address] [id number] [place] [id number] Mar, [facility] [address] [id number] [facility] [place] [address] Mar, [facility] [place] [address] [id number] [place] [id number] Feb, [facility] [address] [id number] [facility] [place] [address] Feb, [facility] [place] [address] [id number] [place] [id number] January, [facility] [address] [id number] [address] [place] [address], [place] [address] January, [facility] [place] [address] [id number] [place] [id number] January, [facility] [address] [id number] [facility] [place] [address] January, [facility] [place] [address] [id number] [place] [id number] Dec, [facility] [address] [id number] [facility] [place] [address] Dec, [facility] [place] [address] [id number] [place] [id number] Dec, [facility] [address] [id number] [facility] [place] [address] Dec, [facility] [place] [address] [id number] [place] [id number] Nov, [facility] [address] [id number] [address] [place] [address], [place] [address] Nov, [facility] [address] [id number] [address] [place] [address], [place] [address] Oct, [facility] [address] [id number] [address] [place] [address], [place] [address] Oct, [facility] [address] [id number] [address] [place] [address], [place] [address] Sep, [facility] [place] [address] [id number] [place] [id number] Sep, [facility] [place] [address] [id number] [place] [id number] Sep, [facility] [address] [id number] [address] [place] [address], [place] [address] Sep, [facility] [place] [address] [id number] [place] [id number] Aug, [facility] [address] [id number] [address] [place] [address], [place] [address] Aug, [facility] [place] [address] [id number] [place] [id number] Jul, [facility] [address] [id number] [address] [place] [address], [place] [address] Jul, [facility] [place] [address] [id number] [place] [id number] Jul, [facility] [address] [id number] [address] [place] [address], [place] [address] Jul, [facility] [place] [address] [id number] [place] [id number] Jul, [facility] [address] [id number] [address] [place] [address], [place] [address] Jul, [facility] [place] [address] [id number] [place] [id number] Jul, [facility] [address] [id number] [address] [place] [address] Jul, [facility] [address] [facility] [id number] [address] [place] [address] Jul, [facility] [place] [address] [id number] [place] [id number] Jun, [facility] [address] [facility] [id number] [address] [place] [address] Jun, [facility] [place] [address] [id number] [place] [id number] Jun, [facility] [place] [address] [id number] [place] [id number] Jun, [facility] [address] [facility] [id number] [address] [place] [address] Jun, [facility] [address] [facility] [id number] [address] [place] [address] Jun, [facility] [place] [address] [id number] [place] [id number] Jun, [facility] [address] [facility] [id number] [address] [place] [address] Jun, [facility] [address] [facility] [id number] [address] [place] [address] Jun, [facility] [place] [address] [id number] [place] [id number] May, [facility] [place] [address] [id number] [place] [id number] May, [facility] [place] [address] [id number] [place] [id number] May, [facility] [place] [address] [id number] [place] [id number] May, [facility] [place] [address] [id number] [place] [id number] Apr, [facility] [place] [address] [id number] [place] [id number] Feb, [facility] [place] [address] [id number] [place] [id number] Feb, [facility] [address] [id number] [address] [place] [address], [place] [address] Feb, [facility] [place] [address] [id number] [place] [id number] January, [facility] [address] [facility] [id number] [address] [place] [address], [place] [address] January, [facility] [place] [address] [id number] [place] [id number] January, [facility] [place] [address] [id number] [place] [id number] January, [facility] [place] [address] [id number] [place] [id number] January, [facility] [address] [facility] [id number] [address] [place] [address], [place] [address] Nov, [facility] [address] [id number] [address] [place] [address], [place] [address] Nov, [facility] [place] [address] [id number] [place] [id number] Oct, [facility] [place] [address] [id number] [place] [id number] Oct, [facility] [place] [address] [id number] [place] [id number] Oct, [facility] [place] [address] [id number] [place] [id number] Oct, [facility] [address] [facility] [id number] [address] [place] [address], [place] [address] Oct, [facility] [address] [facility] [id number] [address] [place] [id number] Oct, [facility] [place] [address] [id number] [place] [id number] Sep, [facility] [address] [facility] [id number] [address] [place] [address] Sep, [facility] [place] [address] [id number] [place] [id number] Sep, [facility] [place] [address] [id number] [place] [id number] Sep, [facility] [place] [address] [id number] [place] [id number] Jun, [facility] [address] [id number] [address] [place] [address], [place] [address] Jun, [facility] [place] [address] [id number] [place] [id number] May, [facility] [place] [address] [id number] [place] [id number] May, [facility] [place] [address] [id number] [place] [id number] Apr, [facility] [place] [address] [id number] [place] [id number] Apr, [facility] [place] [address] [id number] [place] [id number] Apr, [facility] [place] [address] [id number] [place] [id number] Mar, [facility] [address] [id number] [address] [place] [address], [place] [address] Feb, [facility] [place] [address] [id number] [place] [id number] Nov, [facility] [place] [address] [id number] [place] [id number] Nov, [facility] [address] [facility] [id number] [address] [place] [address] Nov, [facility] [address] [facility] [id number] [address] [place] [address] Nov, [facility] [address] [facility] [id number] [address] [place] [id number] Nov, [facility] [place] [address] [id number] [place], [place] [id number] Nov, [facility] [address] [id number] MYERS [place]AT [facility] [id number] Sep, [facility] [address] [facility] [id number] [place] [facility] [id number] Sep, IMMUNIZATIONS No Known Immunizations SOCIAL HISTORY Never Assessed REASON FOR VISIT EMR[place] [place] OF CARE VITAL SIGNS MEDICATIONS Unknown [...] [id number] 03/06/2016 Surgical History Hemmroidectomy-Dr. YANG in [place] 2013 Surgical History EGD/Colonoscopy 07/27/18 Hospitalization History surgeries Hospitalization History [facility] for abdominal/chest pain 07/2015 Hospitalization History Inpt for lumbar surgery x's 10 days 02/2015 Hospitalization History Pt was in [facility] home for rehab from surgery, Dx with UTI -03/2016
--- OUTSIDE RECORDS SUMMARY | 2019-09-07 21:28 | XMS REPORT ---
Author Author Paola White Doctor Organization [facility] Address Unknown Phone Unavailable Care Team Providers Care [employer]ion[employer] Electronics Technician Name Role Phone Migration, Doctor Unavailable Unavailable PROBLEMS Type Condition ICD9-CM Code YOG96-TR Code Onset Dates Condition S tatus SNOMED Code Problem Abnormal MRI, lumbar spine R93.7 Act sung 081680781 Problem Hyperlipemia, mixed E78.2 Active 123307133 Problem Esophageal reflux K21.9 Active 24 2694640 Problem Non-seasonal allergic rhinitis due to pollen J30.1 Active 97673354 Problem COPD (chronic obstructive pulmonary disease) J44.9 Active 42260221 Problem Essential hypertension I10 Active 39470045 Problem Acquired hypothyroidism E03.9 Active 239385656 Problem Neuropathy G62.9 Active 785200358 Problem Chronic fatigue R53.82 Active 5270 2003 ALLERGIES No Information ENCOUNTERS Encounter Location Date Diagnosis [facility] [address] [id number] [place] [id number] Sep, [facility] [address] [id number] [place] [id number] Sep, COPD (chronic obstructive pulmonary dise ase) J44.9 ; Essential hypertension I10 ; Hyperlipemia, mixed E78.2 ; Acquired hypothyroidism E03.9 ; Esophageal reflux K21.9 ; Midline low back pain, unspecified chronicity, with sciatica presence unspecified M54.5 and Michaelle infection B37.9 [facility] [address] [id number] [place] [id number] Sep, Toenail fungus B35.1 [facility] [address] [id number] [place] [id number] Aug, [facility] [address] [id number] [place] [id number] Aug, Rhinitis J31.[address] [facility] [address] [id number] [id number] Aug, [place] [address] [facility] [id number] [place] [id number] Aug, [facility] [address] [facility] [id number] [place] [id number] Aug, [facility] Levy0 [facility] [id number] [place] [id number] Jul, Urinary tract infection, site not specif ied N39.0 and Dysuria R30.0 [facility] [address] [facility] [id number] [place] [id number] Jun, Acquired hypothyroidism E03.9 ; Hyperlip emia, mixed E78.2 ; Essential hypertension I10 ; Esophageal reflux K21.9 ; COPD (chronic obstructive pulmonary disease) J44.9 ; Ingrown toenail L60.0 ; Foot pain, bilateral M79.671 ; Noncompliance by refusing intervention or support Z53.29 ; Colon cancer screening Z12.11 and Rhinitis J31.0 [facility] [address] [facility] [id number] [place] [id number] Jun, Hyperlipemia, mixed E78.2 [facility] [address] [place] [id number] [place] [id number] Jun, Hypothyroidism, unspecified type E03.9 ; Hyperlipemia, mixed E78.2 ; Essential hypertension I10 and Encounter for immunization Z23 [facility] [id number] [place] [id number] Jun, [facility] [address] [facility] [id number] [place] [id number] May, Essential hypertension I10 [facility] [address] [facility] [id number] [place] [id number] May, Hypothyroidism, unspecified type E03.9 ; Essential hypertension I10 and Hyperlipemia, mixed E78.2 [facility] [address] [id number] [place] [id number] Apr, [facility] [address] [facility] [id number] [place] [id number] Apr, Abnormal mammogram of left breast R92.8 [facility] [address] [id number] [place] [id number] Mar, Abnormal mammogram of left breast R92.8 [facility] [place] [address] [id number] [place] [id number] Mar, [facility] [place] [address] [id number] [place] [id number] Mar, [facility] [address] [facility] [id number] [place] [address] Feb, Sore throat and laryngitis J 06.0 and Strep throat J02.0 [facility] [address] [facility] [id number] [place] [address] Dec, [facility] [place] [address] [id number] [place] [id number] Dec, [facility] [place] [address] [id number] [place] [id number] Dec, Dilated pore of Mk of back L70.8 ; Se borrheic keratoses L82.1 and Non- seasonal allergic rhinitis due to pollen J30.1 [facility] [place] [address] [id number] [place] [id number] Dec, [facility] [address] [id number] [id number] Oct, [facility] [place] [address] [id number] [place] [id number] Oct, Screening breast examination Z12.31 and History of abnormal mammogram Z87.898 [facility] [place] [address] [id number] [place] [id number] Sep, [facility] [place] [address] [id number] [place] [id number] Sep, [facility] [place] [address] [id number] [place] [id number] Sep, [facility] [place] [address] [id number] [place] [id number] Jun, Obesity (BMI 30.0-34.9) E66.9 ; Chronic fatigue R53.82 ; Neuropathy G62.9 ; Essential hypertension I10 and Encounter for immunization Z23 [facility] [place] [address] [id number] [place] [id number] Jun, Neuropathy G62.9 and Essential hypertens ion I10 [facility] [place] [address] [id number] [place] [id number] Apr, [facility] [place] [address] [id number] [place] [address], [place] [id number] Mar, Neuropathy G62.9 ; Hypothyroidism, unspe cified type E03.9 ; Essential hypertension I10 ; Muscle spasm M62.838 and Hyperlipemia, mixed E78.2 [facility] [place] [address] [id number] [place] [address], [place] [id number] Feb, [facility] [place] [address] [id number] [place] [id number] January, [facility] [place] [address] [place] [address], [place] [id number] Dec, [facility] [place] [address] [id number] [place] [id number] Dec, Hypothyroidism, unspecified type E03.9 [facility] [place] [address] [id number] [place] [id number] Nov, [facility] [place] [address] [id number] [place] [id number] Nov, Neuropathy G62.9 ; Sinus congestion R09. 81 ; Hyperlipemia, mixed E78.2 and Hypothyroidism, unspecified type E03.9 [facility] [place] [address] [id number] [place] [id number] Nov, Neuropathy G62.9 [facility] [place] [address] [id number] [place] [id number] Nov, Sinus congestion R09.81 and Acquired hyp othyroidism E03.9 [facility] [place] [address] [id number] [place] [id number] Nov, Acquired hypothyroidism E03.9 [facility] [place] [address] [id number] [place] [id number] Oct, [facility] [place] [address] [facility] [id number] [place] [id number] Oct, Sinus congestion R09.81 and Neuropathy G 62.9 [place] [id number] [place] [id number] 14 Oct, 2016 Fever, unspecified R50.9 ; Sinus congest ion R09.81 and Neuropathy G62.9 [place] [address] [id number] [place] [address] Oct, [facility] [place] [address] [facility] [id number] [place] [id number] Oct, Abnormal mammogram of left breast R92.[address], [place] [id number] Sep, Abnormal mammogram R92.[address] [place] [address], [place] [id number] Sep, Acquired hypothyroidism E03.9 [address], [place] [id number] Sep, Hypothyroidism, unspecified type E03.9 ; Hyperlipemia, mixed E78.2 and Essential hypertension I10 [address], [place] [id number] Sep, Hypothyroidism, unspecified type E03.9 a nd Hyperlipemia, mixed E78.[address] [place] [address], [place] [id number] Aug, Acute maxillary sinusitis, recurrence no t specified J01.00 [place] [id number] [id number] Jul, Hyperlipemia, mixed E78.2 [facility] [address], [place] [id number] Jul, Acquired hypothyroidism E03.9 ; Hyperlip emia, mixed E78.2 ; Multiple joint pain M25.50 ; Esophageal reflux K21.9 ; Otitis media with effusion, right H65.91 and Essential hypertension I10 [address] [place] [address], [place] [id number] Jul, Gastroesophageal reflux disease, esophag itis presence not specified K21.9 [facility] [place] [address] [id number] [place] [id number] May, [facility] [place] [address] [id number] [place] [id number] Apr, Cystitis N30.90 and Well woman exam Z01. 419 [facility] [address] [id number] [place] [id number] Apr, Hematuria R31.9 and Dysuria R30.0 [facility] [address] [id number] [place] [id number] Apr, [facility] [address] [id number] [place] [id number] Apr, Urinary tract infection, site not specif ied N39.0 and Hematuria, unspecified R31.9 [facility] [address] [id number] [place] [id number] Dec, [facility] [place] [address] [id number] [place] [id number] Nov, [facility] [address] [id number] [place] [id number] Oct, Hyperlipemia, mixed E78.2 [facility] [address] [id number] [place] [id number] Oct, Gastroesophageal reflux disease, esophag itis presence not specified K21.9 ; Acute serous otitis media of left ear, recurrence not specified H65.02 ; Hyperlipemia, mixed E78.2 and Hypothyroidism, unspecified type E03.9 [facility] [address] [id number] [place] [id number] Sep, [facility] [address] [id number] [place] [id number] Sep, Actinic keratoses L57.0 and Stuffy and r unny nose J34.89 [facility] [address] [id number] [place] [id number] Aug, [facility] [address] [facility] [id number] [place] [id number] Aug, Acute cystitis with hematuria N30.01 [facility] [address] [facility] [id number] [place] [id number] Jul, Reflux esophagitis K21.0 ; Acquired defo rmities of toe, 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 ; Multiple joint pain M25.50 and Sinus congestion R09.81 [facility] [address] [facility] [id number] [place] [id number] Jul, [facility] [address] [facility] [id number] [place] [id number] Jun, Acute cystitis without hematuria N30.00 ; Dysuria R30.0 ; Flank pain R10.9 and High risk medication use Z79.899 [facility] [address] [facility] [id number] [place] [id number] Jun, Urinary tract infection N39.0 [facility] [address] [id number] [id number] Jun, [facility] [address] [facility] [id number] [place] [id number] Jun, Urinary tract infection, site not specif ied 599.0 and Encounter for immunization Z23 [facility] [address] [facility] [id number] [place] [id number] Jun, [facility] [address] [facility] [id number] [place] [id number] May, [address] [id number] [place] [id number] Dec, [facility] [address] [facility] [id number] [address] [place] [address] Dec, [facility] [address] [place] [id number] [address] [place] [address] Dec, [address] [id number] [place] [id number] Oct, [facility] [address] [place] [address], [place] [address] Oct, [facility] [place] [address] [id number] [place] [id number] Sep, [facility] [address] [id number] [address] [place] [address], [place] [address] Sep, [facility] [place] [address] [id number] [place] [id number] Sep, [facility] [address] [id number] [address] [place] [address], [place] [address] Sep, [facility] [place] [address] [id number] [place] [id number] Aug, [facility] [place] [address] [id number] [place] [id number] Aug, [facility] [address] [facility] [id number] [address] [place] [address], [place] [address] Aug, [facility] [address] [id number] [address] [place] [address], [place] [address] Aug, [facility] [place] [address] [id number] [place] [id number] Aug, [facility] [address] [id number] [address] [place] [address] Aug, [facility] [place] [address] [id number] [place] [id number] Jul, [facility] [address] [id number] [address] [place] [address], [place] [address] Jul, [facility] [place] [address] [id number] [place] [id number] Jul, [facility] [address] [id number] [address] [place] [address], [place] [address] Jul, [facility] [place] [address] [id number] [place] [id number] Jul, [facility] [address] [facility] [id number] [address] [place] [address], [place] [address] Jul, [facility] [place] [address] [id number] [place] [id number] Jul, [facility] [address] [id number] [address] [place] [address], [place] [address] Jul, [facility] [address] [id number] [address] [place] [address], [place] [address] Jun, [facility] [address] [id number] [address] [place] [address], [place] [address] Jun, [facility] [place] [address] [id number] [place] [id number] Jun, [facility] [address] [id number] [address] [place] [address], [place] [address] Jun, [facility] [address] [id number] [address] [place] [address], [place] [address] Jun, [facility] [place] [address] [id number] [place] [id number] Jun, [facility] [place] [address] [id number] [place] [id number] Jun, [facility] [address] [id number] [address] [place] [address], [place] [address] Jun, [facility] [place] [address] [id number] [place] [id number] Jun, [facility] [address] [id number] [address] [place] [address], [place] [address] Jun, [facility] [place] [address] [id number] [place] [id number] May, [facility] [address] [id number] [address] [place] [address], [place] [address] May, [facility] [place] [address] [id number] [place] [id number] May, [facility] [address] [id number] [address] [place] [address], [place] [address] May, [facility] [address] [id number] [facility] [place] [address] Apr, [facility] [address] [id number] [facility] [place] [address] Apr, [facility] [place] [address] [id number] [place] [id number] Apr, [facility] [address] [id number] [facility] [place] [address] Apr, [facility] [place] [address] [id number] [place] [id number] Mar, [facility] [address] [id number] [facility] [place] [address] Mar, [facility] [place] [address] [id number] [place] [id number] Feb, [facility] [address] [id number] [facility] [place] [address] Feb, [facility] [place] [address] [id number] [place] [id number] January, [facility] [address] [id number] [address] [place] [address], [place] [address] January, [facility] [place] [address] [id number] [place] [id number] January, [facility] [address] [id number] [facility] [place] [address] January, [facility] [place] [address] [id number] [place] [id number] Dec, [facility] [address] [id number] [facility] [place] [address] Dec, [facility] [place] [address] [id number] [place] [id number] Dec, [facility] [address] [id number] [facility] [place] [address] Dec, [facility] [place] [address] [id number] [place] [id number] Nov, [facility] [address] [id number] [address] [place] [address], [place] [address] Nov, [facility] [address] [id number] [address] [place] [address], [place] [address] Oct, [facility] [address] [id number] [address] [place] [address], [place] [address] Oct, [facility] [address] [id number] [address] [place] [address], [place] [address] Sep, [facility] [place] [address] [id number] [place] [id number] Sep, [facility] [place] [address] [id number] [place] [id number] Sep, [facility] [address] [id number] [address] [place] [address], [place] [address] Sep, [facility] [place] [address] [id number] [place] [id number] Aug, [facility] [address] [id number] [address] [place] [address], [place] [address] Aug, [facility] [place] [address] [id number] [place] [id number] Jul, [facility] [address] [id number] [address] [place] [address], [place] [address] Jul, [facility] [place] [address] [id number] [place] [id number] Jul, [facility] [address] [id number] [address] [place] [address], [place] [address] Jul, [facility] [place] [address] [id number] [place] [id number] Jul, [facility] [address] [id number] [address] [place] [address], [place] [address] Jul, [facility] [place] [address] [id number] [place] [id number] Jul, [facility] [address] [id number] [address] [place] [address] Jul, [facility] [address] [facility] [id number] [address] [place] [address] Jul, [facility] [place] [address] [id number] [place] [id number] Jun, [facility] [address] [facility] [id number] [address] [place] [address] Jun, [facility] [place] [address] [id number] [place] [id number] Jun, [facility] [place] [address] [id number] [place] [id number] Jun, [facility] [address] [facility] [id number] [address] [place] [address] Jun, [facility] [address] [facility] [id number] [address] [place] [address] Jun, [facility] [place] [address] [id number] [place] [id number] Jun, [facility] [address] [facility] [id number] [address] [place] [id number] Jun, [facility] [address] [facility] [id number] [address] [place] [id number] Jun, [facility] [place] [address] [id number] [place] [id number] May, [facility] [place] [address] [id number] [place] [id number] May, [facility] [place] [address] [id number] [place] [id number] May, [facility] [place] [address] [id number] [place] [id number] May, [facility] [place] [address] [id number] [place] [id number] Apr, [facility] [place] [address] [id number] [place] [id number] Feb, [facility] [place] [address] [id number] [place] [id number] Feb, [facility] [address] [id number] [address] [place] [address], [place] [address] Feb, [facility] [place] [address] [id number] [place] [id number] January, [facility] [address] [facility] [id number] [address] [place] [address], [place] [address] January, [facility] [place] [address] [id number] [place] [id number] January, [facility] [place] [address] [id number] [place] [id number] January, [facility] [place] [address] [id number] [place] [id number] January, [facility] [address] [facility] [id number] [address] [place] [address], [place] [id number] Nov, [facility] [address] [id number] [address] [place] [address], [place] [address] Nov, [facility] [place] [address] [id number] [place] [id number] Oct, [facility] [place] [address] [id number] [place] [id number] Oct, [facility] [place] [address] [id number] [place] [id number] Oct, [facility] [place] [address] [id number] [place] [id number] Oct, [facility] [address] [facility] [id number] [address] [place] [address], [place] [address] Oct, [facility] [address] [facility] [id number] [address] [place] [id number] Oct, [facility] [place] [address] [id number] [place] [id number] Sep, [facility] [address] [facility] [id number] [address] [place] [id number] Sep, [facility] [place] [address] [id number] [place] [id number] Sep, [facility] [place] [address] [id number] [place] [id number] Sep, [facility] [place] [address] [id number] [place] [id number] Jun, [facility] [address] [id number] [address] [place] [address], [place] [address] Jun, [facility] [place] [address] [id number] [place] [id number] May, [facility] [place] [address] [id number] [place] [id number] May, [facility] [place] [address] [id number] [place] [id number] Apr, [facility] [place] [address] [id number] [place] [id number] Apr, [facility] [place] [address] [id number] [place] [id number] Apr, [facility] [place] [address] [id number] [place] [id number] Mar, [facility] [address] [id number] [address] [place] [address], [place] [id number] Feb, [facility] [place] [address] [id number] [place] [id number] Nov, [facility] [place] [address] [id number] [place] [id number] Nov, [facility] [address] [facility] [id number] [address] [place] [id number] Nov, [facility] [address] [facility] [id number] [address] [place] [id number] Nov, [facility] [address] [facility] [id number] [address] [place] [id number] Nov, [facility] [place] [address] [id number] [place] [id number] Nov, [facility] [place] [address] [id number] [place] [facility] [id number] Sep, [facility] [address] [facility] [id number] [place] [facility] [id number] Sep, IMMUNIZATIONS No Known Immunizations SOCIAL HISTORY Never Assessed REASON FOR VISIT EMR-[facility] PLAN OF CARE VITAL SIGNS MEDICATIONS Unknown [...] [id number] 03/06/2016 Surgical History Hemmroidectomy-Dr. YANG in [place] 2013 Surgical History EGD/Colonoscopy 07/27/18 Hospitalization History surgeries Hospitalization History [facility] for abdominal/chest pain 07/2015 Hospitalization History Inpt for lumbar surgery x's 10 days 02/2015 Hospitalization History Pt was in [facility] home for rehab from surgery, Dx with UTI -03/2016
--- OUTSIDE RECORDS SUMMARY | 2019-09-07 21:28 | XMS REPORT ---
Author Author Paola CASTELLANO [facility] Address [address] [place] [address] Care Team Providers Care Armhole Sewer Name Role Phone GRAY ANTHONY Unavailable PROBLEMS Type Condition ICD9-CM Code GPD44-OW Code Onset Dates Condition S tatus SNOMED Code Problem Hyperlipemia, mixed E78.2 Active 637202744 Problem Essential hypertension I10 Active 47662025 Problem Esophageal reflux K21.9 Active 24 7212695 Problem COPD (chronic obstructive pulmonary disease) J44.9 Active 56396951 Problem Rhinitis J31.0 Active 42290839 Problem Neuropathy G62.9 Active 329779407 Problem Acquired hypothyroidism E03.9 Active 530675019 Problem Non-seasonal allergic rhinitis due to pollen J30.1 Active 66538637 Problem Chronic fatigue R53.82 Active 5270 2003 ALLERGIES No Information ENCOUNTERS Encounter Location Date Diagnosis [facility] [address] [facility] [id number] [address] [address] Oct, [facility] [address] [id number] [id number] Aug, [facility] [address] [facility] [id number] [place] [id number] Aug, [address] [id number] [place] [id number] Aug, [place] [address] [facility] [id number] [id number] Jul, Urinary tract infection, site not specif ied N39.0 and Dysuria R30.0 [facility] [address] [facility] [id number] [place] [id number] Jun, Acquired hypothyroidism E03.9 ; Hyperlip emia, mixed E78.2 ; Essential hypertension I10 ; Esophageal reflux K21.9 ; COPD (chronic obstructive pulmonary disease) J44.9 ; Ingrown toenail L60.0 ; Foot pain, bilateral M79.671 ; Noncompliance by refusing intervention or support Z53.29 ; Colon cancer screening Z12.11 and Rhinitis J31.0 [facility] [address] [place] [id number] [place] [address], [place] [id number] Jun, Hyperlipemia, mixed E78.2 [facility] [place] [place] [address], [place] [id number] Jun, Hypothyroidism, unspecified type E03.9 ; Hyperlipemia, mixed E78.2 ; Essential hypertension I10 and Encounter for immunization Z23 [facility] [address], [place] [id number] Jun, [facility] [address], [place] [id number] May, Essential hypertension I10 [facility] [place] [address], [place] [id number] May, Hypothyroidism, unspecified type E03.9 ; Essential hypertension I10 and Hyperlipemia, mixed E78.2 [facility] [address] [place] [address] [id number] [place] [address], [place] [id number] Apr, [facility] [address], [place] [id number] Apr, Abnormal mammogram of left breast R92.8 [facility] [address] [id number] [place] [address], [place] [id number] Mar, Abnormal mammogram of left breast R92.8 [facility] [address], [place] [id number] Mar, [facility] [place] [address] [id number] [place] [address], [place] [id number] Mar, [facility] [address] [place] [address] Feb, Sore throat and laryngitis J 06.0 and Strep throat J02.0 [facility] [address] [facility] [id number] [address] [place] [address] Dec, [place] [address] [id number] [place] [id number] Dec, [facility] [address] [place] [id number] [place] [id number] Dec, Dilated pore of Mk of back L70.8 ; Se borrheic keratoses L82.1 and Non- seasonal allergic rhinitis due to pollen J30.1 [facility] [address] [facility] [id number] [place] [id number] Dec, [place] [address] [facility] [address] [id number] [place] [id number] Oct, [facility] [address] [place] [id number] [place] [id number] Oct, Screening breast examination Z12.31 and History of abnormal mammogram Z87.898 [facility] [id number] [place] [id number] Sep, [facility] [id number] [place] [id number] Sep, [facility] [address] [id number] [place] [id number] Sep, [facility] [address] [place] [id number] [place] [address], [place] [id number] Jun, Obesity (BMI 30.0-34.9) E66.9 ; Chronic fatigue R53.82 ; Neuropathy G62.9 ; Essential hypertension I10 and Encounter for immunization Z23 [facility] [address] [id number] [place] [id number] Jun, Neuropathy G62.9 and Essential hypertens ion I10 [place] [address] [id number] [place] [id number] Apr, [facility] [address] [place] [address] [id number] [place] [address], [place] [id number] Mar, Neuropathy G62.9 ; Hypothyroidism, unspe cified type E03.9 ; Essential hypertension I10 ; Muscle spasm M62.838 and Hyperlipemia, mixed E78.2 [facility] [address] [place] [id number] [place] [address], [place] [id number] Feb, [facility] [place] [address] [id number] [place] [id number] January, [facility] [place] [address] [id number] [place] [id number] Dec, [facility] [place] [address] [id number] [place] [id number] Dec, Hypothyroidism, unspecified type E03.9 [facility] [place] [address] [id number] [place] [id number] Nov, [facility] [place] [address] [id number] [place] [id number] Nov, Neuropathy G62.9 ; Sinus congestion R09. 81 ; Hyperlipemia, mixed E78.2 and Hypothyroidism, unspecified type E03.9 [facility] [place] [address] [id number] [place] [id number] Nov, Neuropathy G62.9 [facility] [place] [address] [id number] [place] [id number] Nov, Sinus congestion R09.81 and Acquired hyp othyroidism E03.9 [facility] [place] [address] [id number] [place] [id number] Nov, Acquired hypothyroidism E03.9 [facility] [place] [address] [id number] [place] [id number] Oct, [facility] [place] [address] [id number] [place] [id number] Oct, Sinus congestion R09.81 and Neuropathy G 62.9 [facility] [place] [address] [id number] [place] [id number] Oct, Fever, unspecified R50.9 ; Sinus congest ion R09.81 and Neuropathy G62.9 [facility] [place] Eric [place]ER[place] [id number] [place] [address] Oct, [facility] [place] [address] [id number] [place] [id number] Oct, Abnormal mammogram of left breast R92.8 [facility] [address] [place] [id number] [place] [address], [place] [id number] Sep, Abnormal mammogram R92.8 [facility] [address], [place] [id number] Sep, Acquired hypothyroidism E03.9 [facility] [address], [place] [id number] Sep, Hypothyroidism, unspecified type E03.9 ; Hyperlipemia, mixed E78.2 and Essential hypertension I10 [facility] [address] [place] [id number] [place] [address], [place] [id number] Sep, Hypothyroidism, unspecified type E03.9 a nd Hyperlipemia, mixed E78.2 [facility] [address], [place] [id number] Aug, Acute maxillary sinusitis, recurrence no t specified J01.00 [facility] [address], [place] [id number] Jul, Hyperlipemia, mixed E78.2 [facility] [address], [place] [id number] Jul, Acquired hypothyroidism E03.9 ; Hyperlip emia, mixed E78.2 ; Multiple joint pain M25.50 ; Esophageal reflux K21.9 ; Otitis media with effusion, right H65.91 and Essential hypertension I10 [facility] [address] [place] [id number] [place] [address], [place] [id number] Jul, Gastroesophageal reflux disease, esophag itis presence not specified K21.9 [facility] [address] [place] [id number] [place] [address], [place] [id number] May, [facility] [address], [place] [id number] Apr, Cystitis N30.90 and Well woman exam Z01. 419 [facility] [address] [place] [id number] [place] [address], [place] [id number] Apr, Hematuria R31.9 and Dysuria R30.0 [place] [address] [place] [id number] [place] [address], [place] [id number] Apr, [facility] [address] [facility] [id number] [place] [id number] Apr, Urinary tract infection, site not specif ied N39.0 and Hematuria, unspecified R31.9 [facility] [id number] [place] [id number] Dec, [facility] [address] [place] [id number] [place] [address], [place] [id number] Nov, [facility] [address] [place] [id number] [place] [address], [place] [id number] Oct, Hyperlipemia, mixed E78.2 [place] [address] [place] [id number] [place] [address], [place] [id number] Oct, Gastroesophageal reflux disease, esophag itis presence not specified K21.9 ; Acute serous otitis media of left ear, recurrence not specified H65.02 ; Hyperlipemia, mixed E78.2 and Hypothyroidism, unspecified type E03.9 [facility] [address] [place] [id number] [place] [address], [place] [id number] Sep, [place] [id number] [place] [address], [place] [id number] Sep, Actinic keratoses L57.0 and Stuffy and r unny nose J34.89 [facility] [address] [place] [id number] [place] [address], [place] [id number] Aug, [place] [address] [place] [id number] [place] [address], [place] [id number] Aug, Acute cystitis with hematuria N30.01 [facility] [address] [place] [id number] [place] [address], [place] [id number] Jul, 2015 Reflux esophagitis K21.0 ; Acquired defo rmities of toe, 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 ; Multiple joint pain M25.50 and Sinus congestion R09.81 [facility] [id number] [place] [id number] Jul, [facility] [address] [place] [id number] [place] [address], [place] [id number] Jun, Acute cystitis without hematuria N30.00 ; Dysuria R30.0 ; Flank pain R10.9 and High risk medication use Z79.899 [facility] [place] [address] [id number] [place] [id number] Jun, Urinary tract infection N39.[address] [facility] [address] [id number] [place] [id number] Jun, [facility] [place] [address] [id number] [place] [id number] Jun, Urinary tract infection, site not specif ied 599.0 and Encounter for immunization Z23 zzCHYOSELINEK [facility] [address] [facility] [id number] [place] [id number] Jun, [facility] [place] [address] [facility] [id number] [place] [id number] May, [facility] [place] [address] [facility] [id number] [place] [id number] Dec, [facility] [address] [facility] [id number] [address] [place] [address] Dec, [facility] [address] [facility] [id number] [address] [place] [address] Dec, [facility] [place] [address] [facility] [id number] [place] [id number] Oct, [facility] [address] [facility] [id number] [address] [place] [address] Oct, [facility] [place] [address] [facility] [id number] [place] [id number] Sep, [facility] [address] [facility] [id number] [address] [place] [address] Sep, [facility] [place] [address] [facility] [id number] [place] [id number] Sep, [facility] [address] [facility] [id number] [address] [place] [address] Sep, [facility] [place] [address] [id number] [place] [id number] Aug, [facility] [place] [address] [id number] [place] [id number] Aug, [facility] [address] [id number] [address] [place] [address], [place] [address] Aug, [facility] [address] [id number] [address] [place] [address] Aug, [facility] [place] [address] [id number] [place] [id number] Aug, [facility] [address] [id number] [address] [place] [address], [place] [address] Aug, [facility] [place] [address] [id number] [place] [id number] Jul, [facility] [address] [id number] [address] [place] [address] Jul, [facility] [place] [address] [id number] [place] [id number] Jul, [facility] [address] [id number] [address] [place] [address] Jul, [facility] [place] [address] [id number] [place] [id number] Jul, [facility] [address] [facility] [id number] [address] [place] [address] Jul, [facility] [place] [address] [id number] [place] [id number] Jul, [facility] [address] [id number] [address] [place] [address] Jul, [facility] [address] [id number] [address] [place] [address] Jun, [facility] [address] [id number] [address] [place] [address] Jun, [facility] [place] [address] [id number] [place] [id number] Jun, [facility] [address] [id number] [address] [place] [address] Jun, [facility] [address] [id number] [address] [place] [address], [place] [address] Jun, [facility] [place] [address] [id number] [place] [id number] Jun, [facility] [place] [address] [id number] [place] [id number] Jun, [facility] [address] [id number] [address] [place] [address], [place] [address] Jun, [facility] [place] [address] [id number] [place] [id number] Jun, [facility] [address] [id number] [address] [place] [address], [place] [address] Jun, [facility] [place] [address] [id number] [place] [id number] May, [facility] [address] [id number] [address] [place] [address] May, [facility] [place] [address] [id number] [place] [id number] May, [facility] [address] [id number] [address] [place] [address] May, [facility] [address] [facility] [id number] [address] [place] [address], [place] [address] Apr, [facility] [address] [id number] [address] [place] [address] Apr, [facility] [place] [address] [id number] [place] [id number] Apr, [facility] [address] [id number] [address] [place] [address], [place] [address] Apr, [facility] [place] [address] [id number] [place] [id number] Mar, [facility] [address] [id number] [address] [place] [address], [place] [address] Mar, [facility] [place] [address] [id number] [place] [id number] Feb, [facility] [address] [id number] [facility] [address] Feb, [facility] [place] [address] [id number] [place] [id number] January, [facility] [address] [id number] [facility] [place] [address] January, [facility] [place] [address] [id number] [place] [id number] January, [facility] [address] [id number] [address] [place] [address], [place] [address] January, [facility] [place] [address] [id number] [place] [id number] Dec, [facility] [address] [id number] [address] [place] [address] Dec, [facility] [place] [address] [id number] [place] [id number] Dec, [facility] [address] [id number] [address] [place] [address] Dec, [facility] [place] [address] [id number] [place] [id number] Nov, [facility] [address] [id number] [address] [place] [address] Nov, [facility] [address] [id number] [address] [place] [address], [place] [address] Oct, [facility] [address] [id number] [address] [place] [address], [place] [address] Oct, [facility] [address] [id number] [address] [place] [address], [place] [address] Sep, [facility] [place] [address] [id number] [place] [id number] Sep, [facility] [place] [address] [id number] [place] [id number] Sep, [facility] [address] [id number] [facility] [place] [address] Sep, [facility] [place] [address] [id number] [place] [id number] Aug, [facility] [address] [id number] [facility] [place] [address] Aug, [facility] [place] [address] [id number] [place] [id number] Jul, [facility] [address] [id number] [address] [place] [address], [place] [address] Jul, [facility] [place] [address] [id number] [place] [id number] Jul, [facility] [address] [facility] [id number] [address] [place] [address], [place] [address] Jul, [facility] [place] [address] [id number] [place] [id number] Jul, [facility] [address] [id number] [address] [place] [address], [place] [address] Jul, [facility] [place] [address] [id number] [place] [id number] Jul, [facility] [address] [facility] [id number] [address] [place] [address], [place] [address] Jul, [facility] [address] [id number] [address] [place] [address], [place] [address] Jul, [facility] [place] [address] [id number] [place] [id number] Jun, [facility] [address] [id number] [address] [place] [address], [place] [address] Jun, [facility] [place] [address] [id number] [place] [id number] Jun, [facility] [place] [address] [id number] [place] [id number] Jun, [facility] [address] [id number] [address] [place] [address] Jun, [facility] [address] [facility] [id number] [address] [place] [address] Jun, [facility] [place] [address] [id number] [place] [id number] Jun, [facility] [address] [facility] [id number] [address] [place] [address] Jun, [facility] [address] [facility] [id number] [address] [place] [address] Jun, [facility] [place] [address] [id number] [place] [id number] May, [facility] [place] [address] [id number] [place] [id number] May, [facility] [place] [address] [id number] [place] [id number] May, [facility] [place] [address] [id number] [place] [id number] May, [facility] [place] [address] [id number] [place] [id number] Apr, [facility] [place] [address] [id number] [place] [id number] Feb, [facility] [place] [address] [id number] [place] [id number] Feb, [facility] [address] [facility] [id number] [address] [place] [address] Feb, [facility] [place] [address] [id number] [place] [id number] January, [facility] [address] [id number] [address] [place] [address] January, [facility] [place] [address] [id number] [place] [id number] January, [facility] [place] [address] [id number] [place] [id number] January, [facility] [place] [address] [id number] [place] [id number] January, [facility] [address] [facility] [id number] [address] [place] [phone] Nov, [facility] [address] [facility] [id number] [address] [place] [phone] Nov, [facility] [place] [address] [id number] [place] [id number] Oct, [facility] [place] [address] [id number] [place] [id number] Oct, [facility] [place] [address] [id number] [place] [id number] Oct, [facility] [place] [address] [id number] [place] [id number] Oct, [facility] [address] [facility] [id number] [address] [place] [phone] Oct, [facility] [address] [facility] [id number] [address] [place] [phone] Oct, [facility] [place] [address] [id number] [place] [id number] Sep, [facility] [address] [facility] [id number] [address] [place] [phone] Sep, [facility] [place] [address] [id number] [place] [id number] Sep, [facility] [place] [address] [id number] [place] [id number] Sep, [facility] [place] [address] [id number] [place] [id number] Jun, [facility] [address] [facility] [id number] [address] [place] [id number] Jun, [facility] [place] [address] [id number] [place] [id number] May, [facility] [place] [address] [id number] [place] [id number] May, [facility] [place] [address] [id number] [place] [id number] Apr, [facility] [place] [address] [id number] [place] [id number] Apr, [facility] [place] [address] [id number] [place] [id number] Apr, [facility] [address] [id number] [place] [id number] Mar, [facility] [address] [facility] [id number] [address] [place] [id number] Feb, [facility] [address] [id number] [place] [id number] Nov, [facility] [address] [id number] [place] [id number] Nov, [facility] [address] [facility] [id number] [address] [place] [phone] Nov, [facility] [address] [facility] [id number] [address] [place] [id number] Nov, [facility] [address] [facility] [id number] [address] [place] [id number] Nov, [facility] [address] [id number] [place] [id number] Nov, [facility] [address] [id number] [place] [id number] Sep, [facility] [address] [id number] [place] [id number] Sep, IMMUNIZATIONS No Known Immunizations SOCIAL HISTORY Never Assessed REASON FOR VISIT Requests return call PLAN OF CARE VITAL SIGNS MEDICATIONS Unknown [...] [id number] 03/06/2016 Surgical History Hemmroidectomy-Dr. YANG in [place] 2013 Surgical History EGD/Colonoscopy 07/27/18 Hospitalization History surgeries Hospitalization History [facility] for abdominal/chest pain 07/2015 Hospitalization History Inpt for lumbar surgery x's 10 days 02/2015 Hospitalization History Pt was in [facility] home for rehab from surgery, Dx with UTI -03/2016
--- OUTSIDE RECORDS SUMMARY | 2019-09-07 21:28 | XMS REPORT ---
Author Author Paola White Doctor Organization [facility] Address Unknown Phone Unavailable Care Team Providers Care Percussion Instrument Tuner Name Role Phone Migration, Doctor Unavailable Unavailable PROBLEMS Type Condition ICD9-CM Code LDR17-ZP Code Onset Dates Condition S tatus SNOMED Code Problem Abnormal MRI, lumbar spine R93.7 Act sung 349589101 Problem Hyperlipemia, mixed E78.2 Active 263144934 Problem Esophageal reflux K21.9 Active 24 1379803 Problem Non-seasonal allergic rhinitis due to pollen J30.1 Active 11813174 Problem COPD (chronic obstructive pulmonary disease) J44.9 Active 57271244 Problem Essential hypertension I10 Active 69113214 Problem Acquired hypothyroidism E03.9 Active 877891134 Problem Neuropathy G62.9 Active 885499443 Problem Chronic fatigue R53.82 Active 5270 2003 ALLERGIES No Information ENCOUNTERS Encounter Location Date Diagnosis [facility] [address] [id number] [place] [id number] Sep, [facility] [address] [id number] [place] [id number] Sep, COPD (chronic obstructive pulmonary dise ase) J44.9 ; Essential hypertension I10 ; Hyperlipemia, mixed E78.2 ; Acquired hypothyroidism E03.9 ; Esophageal reflux K21.9 ; Midline low back pain, unspecified chronicity, with sciatica presence unspecified M54.5 and Michaelle infection B37.9 [facility] [address] [id number] [place] [id number] Sep, Toenail fungus B35.1 [facility] [address] [id number] [place] [id number] Aug, [facility] [address] [id number] [place] [id number] Aug, Rhinitis J31.0 [facility] [address] [id number] [id number] Aug, [place] [address] [facility] [id number] [place] [id number] Aug, [facility] [address] [facility] [id number] [place] [id number] Aug, [facility] Levy0 [facility] [id number] [place] [id number] Jul, Urinary tract infection, site not specif ied N39.0 and Dysuria R30.0 [facility] [address] [facility] [id number] [place] [id number] Jun, Acquired hypothyroidism E03.9 ; Hyperlip emia, mixed E78.2 ; Essential hypertension I10 ; Esophageal reflux K21.9 ; COPD (chronic obstructive pulmonary disease) J44.9 ; Ingrown toenail L60.0 ; Foot pain, bilateral M79.671 ; Noncompliance by refusing intervention or support Z53.29 ; Colon cancer screening Z12.11 and Rhinitis J31.0 [facility] [address] [facility] [id number] [place] [id number] Jun, Hyperlipemia, mixed E78.2 [facility] [address] [place] [id number] [place] [id number] Jun, Hypothyroidism, unspecified type E03.9 ; Hyperlipemia, mixed E78.2 ; Essential hypertension I10 and Encounter for immunization Z23 [facility] [id number] [place] [id number] Jun, [facility] [address] [facility] [id number] [place] [id number] May, Essential hypertension I10 [facility] [address] [facility] [id number] [place] [id number] May, Hypothyroidism, unspecified type E03.9 ; Essential hypertension I10 and Hyperlipemia, mixed E78.2 [facility] [address] [place] [address] [id number] [place] [id number] Apr, [facility] [address] [facility] [id number] [place] [id number] Apr, Abnormal mammogram of left breast R92.8 [facility] [address] [id number] [place] [id number] Mar, Abnormal mammogram of left breast R92.8 [facility] [place] [address] [id number] [place] [id number] Mar, [facility] [place] [address] [id number] [place] [id number] Mar, [facility] [address] [facility] [id number] [place] [address] Feb, Sore throat and laryngitis J 06.0 and Strep throat J02.0 [facility] [address] [facility] [id number] 100[place] [address] Dec, [facility] [place] [address] [id number] [place] [id number] Dec, [facility] [place] [address] [id number] [place] [id number] Dec, Dilated pore of Mk of back L70.8 ; Se borrheic keratoses L82.1 and Non- seasonal allergic rhinitis due to pollen J30.1 [facility] [place] [address] [id number] [place] [id number] Dec, [facility] [address] [id number] [id number] Oct, [facility] [place] [address] [id number] [place] [id number] Oct, Screening breast examination Z12.31 and History of abnormal mammogram Z87.898 [facility] [place] [address] [id number] [place] [id number] Sep, [facility] [place] [address] [id number] [place] [id number] Sep, [facility] [place] [address] [id number] [place] [id number] Sep, [facility] [place] [address] [id number] [place] [id number] Jun, Obesity (BMI 30.0-34.9) E66.9 ; Chronic fatigue R53.82 ; Neuropathy G62.9 ; Essential hypertension I10 and Encounter for immunization Z23 [facility] [place] [address] [id number] [place] [id number] Jun, Neuropathy G62.9 and Essential hypertens ion I10 [facility] [place] [address] [id number] [place] [id number] Apr, [facility] [place] [address] [id number] [place] [address], [place] [id number] Mar, Neuropathy G62.9 ; Hypothyroidism, unspe cified type E03.9 ; Essential hypertension I10 ; Muscle spasm M62.838 and Hyperlipemia, mixed E78.2 [facility] [place] [address] [id number] [place] [address], [place] [id number] Feb, [facility] [place] [address] [id number] [place] [id number] January, [facility] [place] [address] [place] [address], [place] [id number] Dec, [facility] [place] [address] [id number] [place] [id number] Dec, Hypothyroidism, unspecified type E03.9 [facility] [place] [address] [id number] [place] [id number] Nov, [facility] [place] [address] [id number] [place] [id number] Nov, Neuropathy G62.9 ; Sinus congestion R09. 81 ; Hyperlipemia, mixed E78.2 and Hypothyroidism, unspecified type E03.9 [facility] [place] [address] [id number] [place] [id number] Nov, Neuropathy G62.9 [facility] [place] [address] [id number] [place] [id number] Nov, Sinus congestion R09.81 and Acquired hyp othyroidism E03.9 [facility] [place] [address] [id number] [place] [id number] Nov, Acquired hypothyroidism E03.9 [facility] [place] [address] [id number] [place] [id number] Oct, [facility] [place] [address] [facility] [id number] [place] [id number] Oct, Sinus congestion R09.81 and Neuropathy G 62.9 [place] [id number] [place] [id number] 14 Oct, 2016 Fever, unspecified R50.9 ; Sinus congest ion R09.81 and Neuropathy G62.9 [place] [address] [id number] [place] [address] Oct, [facility] [place] [address] [facility] [id number] [place] [id number] Oct, Abnormal mammogram of left breast R92.8 [address] [id number] Sep, Abnormal mammogram R92.[address] [place] [address], [place] [id number] Sep, Acquired hypothyroidism E03.9 [address] [id number] Sep, Hypothyroidism, unspecified type E03.9 ; Hyperlipemia, mixed E78.2 and Essential hypertension I10 [address]65100[facility] [id number] Sep, Hypothyroidism, unspecified type E03.9 a nd Hyperlipemia, mixed E78.[address] [place] [address], [place] [id number] Aug, Acute maxillary sinusitis, recurrence no t specified J01.00 [place] [id number] [place] [id number] Jul, Hyperlipemia, mixed E78.2 [facility] [address]00565100[facility], [place] [id number] Jul, Acquired hypothyroidism E03.9 ; Hyperlip emia, mixed E78.2 ; Multiple joint pain M25.50 ; Esophageal reflux K21.9 ; Otitis media with effusion, right H65.91 and Essential hypertension I10 [address] [place] [address], [place] [id number] Jul, Gastroesophageal reflux disease, esophag itis presence not specified K21.9 [facility] [place] [address] [id number] [place] [id number] May, [facility] [place] [address] [id number] [place] [id number] Apr, Cystitis N30.90 and Well woman exam Z01. 419 [facility] [address] [id number] [place] [id number] Apr, Hematuria R31.9 and Dysuria R30.0 [facility] [address] [id number] [place] [id number] Apr, [facility] [address] [id number] [place] [id number] Apr, Urinary tract infection, site not specif ied N39.0 and Hematuria, unspecified R31.9 [facility] [address] [id number] [place] [id number] Dec, [facility] [place] [address] [id number] [place] [id number] Nov, [facility] [address] [id number] [place] [id number] Oct, Hyperlipemia, mixed E78.2 [facility] [address] [id number] [place] [id number] Oct, Gastroesophageal reflux disease, esophag itis presence not specified K21.9 ; Acute serous otitis media of left ear, recurrence not specified H65.02 ; Hyperlipemia, mixed E78.2 and Hypothyroidism, unspecified type E03.9 [facility] [address] [id number] [place] [id number] Sep, [facility] [address] [id number] [place] [id number] Sep, Actinic keratoses L57.0 and Stuffy and r unny nose J34.89 [facility] [address] [id number] [place] [id number] Aug, [facility] [address] [facility] [id number] [place] [id number] Aug, Acute cystitis with hematuria N30.01 [facility] [address] [facility] [id number] [place] [id number] Jul, Reflux esophagitis K21.0 ; Acquired defo rmities of toe, 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 ; Multiple joint pain M25.50 and Sinus congestion R09.81 [facility] [address] [facility] [id number] [place] [id number] Jul, [facility] [address] [facility] [id number] [place] [id number] Jun, Acute cystitis without hematuria N30.00 ; Dysuria R30.0 ; Flank pain R10.9 and High risk medication use Z79.899 [facility] [address] [facility] [id number] [place] [id number] Jun, Urinary tract infection N39.0 [facility] [address] [id number] [id number] Jun, [facility] [address] [facility] [id number] [place] [id number] Jun, Urinary tract infection, site not specif ied 599.0 and Encounter for immunization Z23 [facility] [place] [address] [facility] [id number] [place] [id number] Jun, [facility] [address] [facility] [id number] [place] [id number] May, [address] [id number] [place] [id number] Dec, [facility] [address] [facility] [id number] [address] [place] [address] Dec, [facility] [address] [place] [id number] [address] [place] [address] Dec, [address] [id number] [place] [id number] Oct, [facility] [address] [place] [address], [place] [address] Oct, [facility] [place] [address] [id number] [place] [id number] Sep, [facility] [address] [id number] [address] [place] [address], [place] [address] Sep, [facility] [place] [address] [id number] [place] [id number] Sep, [facility] [address] [id number] [address] [place] [address], [place] [address] Sep, [facility] [place] [address] [id number] [place] [id number] Aug, [facility] [place] [address] [id number] [place] [id number] Aug, [facility] [address] [facility] [id number] [address] [place] [address], [place] [address] Aug, [facility] [address] [id number] [address] [place] [address], [place] [address] Aug, [facility] [place] [address] [id number] [place] [id number] Aug, [facility] [address] [id number] [address] [place] [address] Aug, [facility] [place] [address] [id number] [place] [id number] Jul, [facility] [address] [id number] [address] [place] [address], [place] [address] Jul, [facility] [place] [address] [id number] [place] [id number] Jul, [facility] [address] [id number] [address] [place] [address], [place] [address] Jul, [facility] [place] [address] [id number] [place] [id number] Jul, [facility] [address] [facility] [id number] [address] [place] [address], [place] [address] Jul, [facility] [place] [address] [id number] [place] [id number] Jul, [facility] [address] [id number] [address] [place] [address], [place] [address] Jul, [facility] [address] [id number] [address] [place] [address], [place] [address] Jun, [facility] [address] [id number] [address] [place] [address], [place] [address] Jun, [facility] [place] [address] [id number] [place] [id number] Jun, [facility] [address] [id number] [address] [place] [address], [place] [address] Jun, [facility] [address] [id number] [address] [place] [address], [place] [address] Jun, [facility] [place] [address] [id number] [place] [id number] Jun, [facility] [place] [address] [id number] [place] [id number] Jun, [facility] [address] [id number] [address] [place] [address], [place] [address] Jun, [facility] [place] [address] [id number] [place] [id number] Jun, [facility] [address] [id number] [address] [place] [address], [place] [address] Jun, [facility] [place] [address] [id number] [place] [id number] May, [facility] [address] [id number] [address] [place] [address], [place] [address] May, [facility] [place] [address] [id number] [place] [id number] May, [facility] [address] [id number] [address] [place] [address], [place] [address] May, [facility] [address] [id number] [facility] [place] [address] Apr, [facility] [address] [id number] [facility] [place] [address] Apr, [facility] [place] [address] [id number] [place] [id number] Apr, [facility] [address] [id number] [facility] [place] [address] Apr, [facility] [place] [address] [id number] [place] [id number] Mar, [facility] [address] [id number] [facility] [place] [address] Mar, [facility] [place] [address] [id number] [place] [id number] Feb, [facility] [address] [id number] [facility] [place] [address] Feb, [facility] [place] [address] [id number] [place] [id number] January, [facility] [address] [id number] [address] [place] [address], [place] [address] January, [facility] [place] [address] [id number] [place] [id number] January, [facility] [address] [id number] [facility] [place] [address] January, [facility] [place] [address] [id number] [place] [id number] Dec, [facility] [address] [id number] [facility] [place] [address] Dec, [facility] [place] [address] [id number] [place] [id number] Dec, [facility] [address] [id number] [facility] [place] [address] Dec, [facility] [place] [address] [id number] [place] [id number] Nov, [facility] [address] [id number] [address] [place] [address], [place] [address] Nov, [facility] [address] [id number] [address] [place] [address], [place] [address] Oct, [facility] [address] [id number] [address] [place] [address], [place] [address] Oct, [facility] [address] [id number] [address] [place] [address], [place] [address] Sep, [facility] [place] [address] [id number] [place] [id number] Sep, [facility] [place] [address] [id number] [place] [id number] Sep, [facility] [address] [id number] [address] [place] [address], [place] [address] Sep, [facility] [place] [address] [id number] [place] [id number] Aug, [facility] [address] [id number] [address] [place] [address], [place] [address] Aug, [facility] [place] [address] [id number] [place] [id number] Jul, [facility] [address] [id number] [address] [place] [address], [place] [address] Jul, [facility] [place] [address] [id number] [place] [id number] Jul, [facility] [address] [id number] [address] [place] [address], [place] [address] Jul, [facility] [place] [address] [id number] [place] [id number] Jul, [facility] [address] [id number] [address] [place] [address], [place] [address] Jul, [facility] [place] [address] [id number] [place] [id number] Jul, [facility] [address] [id number] [address] [place] [address] Jul, [facility] [address] [facility] [id number] [address] [place] [address] Jul, [facility] [place] [address] [id number] [place] [id number] Jun, [facility] [address] [facility] [id number] [address] [place] [address] Jun, [facility] [place] [address] [id number] [place] [id number] Jun, [facility] [place] [address] [id number] [place] [id number] Jun, [facility] [address] [facility] [id number] [address] [place] [address] Jun, [facility] [address] [facility] [id number] [address] [place] [address] Jun, [facility] [place] [address] [id number] [place] [id number] Jun, [facility] [address] [facility] [id number] [address] [place] [address] Jun, [facility] [address] [facility] [id number] [address] [place] [id number] Jun, [facility] [place] [address] [id number] [place] [id number] May, [facility] [place] [address] [id number] [place] [id number] May, [facility] [place] [address] [id number] [place] [id number] May, [facility] [place] [address] [id number] [place] [id number] May, [facility] [place] [address] [id number] [place] [id number] Apr, [facility] [place] [address] [id number] [place] [id number] Feb, [facility] [place] [address] [id number] [place] [id number] Feb, [facility] [address] [id number] [address] [place] [address], [place] [address] Feb, [facility] [place] [address] [id number] [place] [id number] January, [facility] [address] [facility] [id number] [address] [place] [address], [place] [address] January, [facility] [place] [address] [id number] [place] [id number] January, [facility] [place] [address] [id number] [place] [id number] January, [facility] [place] [address] [id number] [place] [id number] January, [facility] [address] [facility] [id number] [address] [place] [address], [place] [address] Nov, [facility] [address] [id number] [address] [place] [address], [place] [address] Nov, [facility] [place] [address] [id number] [place] [id number] Oct, [facility] [place] [address] [id number] [place] [id number] Oct, [facility] [place] [address] [id number] [place] [id number] Oct, [facility] [place] [address] [id number] [place] [id number] Oct, [facility] [address] [facility] [id number] [address] [place] [address], [place] [address] Oct, [facility] [address] [facility] [id number] [address] [place] [id number] Oct, [facility] [place] [address] [id number] [place] [id number] Sep, [facility] [address] [facility] [id number] [address] [place] [id number] Sep, [facility] [place] [address] [id number] [place] [id number] Sep, [facility] [place] [address] [id number] [place] [id number] Sep, [facility] [place] [address] [id number] [place] [id number] Jun, [facility] [address] [id number] [address] [place] [address], [place] [address] Jun, [facility] [place] [address] [id number] [place] [id number] May, [facility] [place] [address] [id number] [place] [id number] May, [facility] [place] [address] [id number] [place] [id number] Apr, [facility] [place] [address] [id number] [place] [id number] Apr, [facility] [place] [address] [id number] [place] [id number] Apr, [facility] [place] [address] [id number] [place] [id number] Mar, [facility] [address] [id number] [address] [place] [address], [place] [address] Feb, [facility] [place] [address] [id number] [place] [id number] Nov, [facility] [place] [address] [id number] [place] [id number] Nov, [facility] [address] [facility] [id number] [address] [place] [id number] Nov, [facility] [address] [facility] [id number] [address] [place] [id number] Nov, [facility] [address] [facility] [id number] [address] [place] [id number] Nov, [facility] [place] [address] [id number] [place] [id number] Nov, [facility] [place] [address] [id number] [place] [facility] [id number] Sep, [facility] [address] [facility] [id number] [place] [facility] [id number] Sep, IMMUNIZATIONS No Known Immunizations SOCIAL HISTORY Never Assessed REASON FOR VISIT [facility] [place]AN OF CARE VITAL SIGNS MEDICATIONS Unknown [...] [id number] 03/06/2016 Surgical History Hemmroidectomy-Dr. YANG in [place] 2013 Surgical History EGD/Colonoscopy 07/27/18 Hospitalization History surgeries Hospitalization History [facility] for abdominal/chest pain 07/2015 Hospitalization History Inpt for lumbar surgery x's 10 days 02/2015 Hospitalization History Pt was in [facility] home for rehab from surgery, Dx with UTI -03/2016
--- OUTSIDE RECORDS SUMMARY | 2019-09-07 21:28 | XMS REPORT ---
Author Author Paola CASTELLANO [facility] Address [address] [place] [address] Care Team Providers Care Software Quality Specialist Name Role Phone ANTHONY CASTELLANO Unavailable PROBLEMS Type Condition ICD9-CM Code APO33-DY Code Onset Dates Condition S tatus SNOMED Code Problem Hyperlipemia, mixed E78.2 Active 268778407 Problem Essential hypertension I10 Active 24650211 Problem Esophageal reflux K21.9 Active 24 0972968 Problem COPD (chronic obstructive pulmonary disease) J44.9 Active 04646310 Problem Rhinitis J31.0 Active 04565743 Problem Neuropathy G62.9 Active 222977214 Problem Acquired hypothyroidism E03.9 Active 070097349 Problem Non-seasonal allergic rhinitis due to pollen J30.1 Active 36622189 Problem Chronic fatigue R53.82 Active 5270 2003 ALLERGIES No Information ENCOUNTERS Encounter Location Date Diagnosis [facility] [address] [facility] [id number] [address] [place] [address] Oct, [address] [id number] [place] [id number] Aug, Rhinitis J31.[address] [facility] [address] [id number] [id number] Aug, [facility] [address] [facility] [id number] [place] [id number] Aug, [facility] [address] [facility] [id number] [place] [id number] Aug, [facility] [id number] [place] [address] [id number] Jul, Urinary tract infection, site not specif ied N39.0 and Dysuria R30.0 [facility] [address] [facility] [id number] [place] [id number] Jun, Acquired hypothyroidism E03.9 ; Hyperlip emia, mixed E78.2 ; Essential hypertension I10 ; Esophageal reflux K21.9 ; COPD (chronic obstructive pulmonary disease) J44.9 ; Ingrown toenail L60.0 ; Foot pain, bilateral M79.671 ; Noncompliance by refusing intervention or support Z53.29 ; Colon cancer screening Z12.11 and Rhinitis J31.0 [facility] [address] [id number] Jun, Hyperlipemia, mixed E78.2 [facility] [address] [id number] Jun, Hypothyroidism, unspecified type E03.9 ; Hyperlipemia, mixed E78.2 ; Essential hypertension I10 and Encounter for immunization Z23 [facility] [id number] [place] [address], [place] [id number] Jun, [facility] [address], [place] [id number] May, Essential hypertension I10 [facility] [id number] [place] [address], [place] [id number] May, Hypothyroidism, unspecified type E03.9 ; Essential hypertension I10 and Hyperlipemia, mixed E78.2 [facility] [id number] [place] [address], [place] [id number] Apr, [facility] [address], [place] [id number] Apr, Abnormal mammogram of left breast R92.8 [facility] [id number] [place] [address], [place] [id number] Mar, Abnormal mammogram of left breast R92.8 [facility] [id number] [place] [address], [place] [id number] Mar, [facility] [id number] [place] [address], [place] [id number] Mar, [facility] [address] [facility] [id number] [address] [place] [address] Feb, Sore throat and laryngitis J 06.0 and Strep throat J02.0 [facility] [address] [facility] [id number] [address] [place] [address] Dec, [facility] [address] [id number] [place] [id number] Dec, [facility] [address] [id number] [place] [id number] Dec, Dilated pore of Mk of back L70.8 ; Se borrheic keratoses L82.1 and Non- seasonal allergic rhinitis due to pollen J30.1 [facility] [address] [id number] [place] [id number] Dec, [address] [id number] [id number] Oct, [facility] [address] [id number] [place] [id number] Oct, Screening breast examination Z12.31 and History of abnormal mammogram Z87.898 [facility] [address] [id number] [place] [id number] Sep, [facility] [address] [id number] [place] [id number] Sep, [facility] [address] [id number] [place] [id number] Sep, [facility] [address] [facility] [id number] [place] [id number] Jun, Obesity (BMI 30.0-34.9) E66.9 ; Chronic fatigue R53.82 ; Neuropathy G62.9 ; Essential hypertension I10 and Encounter for immunization Z23 [facility] [address] [id number] [place] [id number] Jun, Neuropathy G62.9 and Essential hypertens ion I10 [facility] [address] [id number] [place] [id number] Apr, [facility] [address] [id number] [place] [id number] Mar, Neuropathy G62.9 ; Hypothyroidism, unspe cified type E03.9 ; Essential hypertension I10 ; Muscle spasm M62.838 and Hyperlipemia, mixed E78.2 [facility] [place] [address] [facility] [id number] [place] [id number] Feb, [facility] [place] [address] [id number] [place] [id number] January, [facility] [place] [address] [id number] [place] [id number] Dec, [facility] [place] [id number] [place] [address], [place] [id number] Dec, Hypothyroidism, unspecified type E03.9 [facility] [place] [address] [facility] [id number] [place] [id number] Nov, [facility] [place] [id number] [place] [address], [place] [id number] Nov, Neuropathy G62.9 ; Sinus congestion R09. 81 ; Hyperlipemia, mixed E78.2 and Hypothyroidism, unspecified type E03.9 [facility] [place] [id number] [place] [id number] Nov, Neuropathy G62.9 [facility] [place] [address] [id number] [place] [id number] Nov, Sinus congestion R09.81 and Acquired hyp othyroidism E03.9 [facility] [place] [id number] [place] [id number] Nov, Acquired hypothyroidism E03.9 [facility] [place] [address] [id number] [place] [id number] Oct, [facility] [place] [address] [facility] [id number] [place] [id number] Oct, Sinus congestion R09.81 and Neuropathy G 62.9 [facility] [place] [address] [id number] [place] [id number] Oct, Fever, unspecified R50.9 ; Sinus congest ion R09.81 and Neuropathy G62.9 [facility] [place] [address] [id number] [place], [place] [address] Oct, [facility] [place] [id number] [place] [address], [place] [id number] Oct, Abnormal mammogram of left breast R92.8 [facility] [id number] [place] [address], [place] [id number] Sep, Abnormal mammogram R92.8 [facility] [id number] [place] [address], [place] [id number] Sep, Acquired hypothyroidism E03.9 [facility] [address], [place] [id number] Sep, Hypothyroidism, unspecified type E03.9 ; Hyperlipemia, mixed E78.2 and Essential hypertension I10 [place] [address], [place] [id number] Sep, Hypothyroidism, unspecified type E03.9 a nd Hyperlipemia, mixed E78.2 [facility] [address], [place] [id number] Aug, Acute maxillary sinusitis, recurrence no t specified J01.00 [facility] [id number] [place] [address], [place] [id number] Jul, Hyperlipemia, mixed E78.2 [place] [address], [place] [id number] Jul, Acquired hypothyroidism E03.9 ; Hyperlip emia, mixed E78.2 ; Multiple joint pain M25.50 ; Esophageal reflux K21.9 ; Otitis media with effusion, right H65.91 and Essential hypertension I10 [place] [id number] [place] [address], [place] [id number] Jul, Gastroesophageal reflux disease, esophag itis presence not specified K21.9 [facility] [id number] [place] [address], [place] [id number] May, [address], [place] [id number] Apr, Cystitis N30.90 and Well woman exam Z01. 419 [place] [id number] [place] [address], [place] [id number] Apr, Hematuria R31.9 and Dysuria R30.0 [facility] [address] [facility] [id number] [place] [id number] Apr, [facility] [id number] [place] [address], [place] [id number] Apr, Urinary tract infection, site not specif ied N39.0 and Hematuria, unspecified R31.9 [facility] [id number] [place] [address], [place] [id number] Dec, [facility] [id number] [place] [address], [place] [id number] Nov, [facility] [address] [id number] [place] [id number] Oct, Hyperlipemia, mixed E78.2 [facility] [id number] [place] [address], [place] [id number] Oct, Gastroesophageal reflux disease, esophag itis presence not specified K21.9 ; Acute serous otitis media of left ear, recurrence not specified H65.02 ; Hyperlipemia, mixed E78.2 and Hypothyroidism, unspecified type E03.9 [facility] [id number] [place] [id number] Sep, [place] [id number] [place] [address], [place] [id number] Sep, Actinic keratoses L57.0 and Stuffy and r unny nose J34.[id number] [place] [address], [place] [id number] Aug, [facility] [id number] [place] [address], [place] [id number] Aug, Acute cystitis with hematuria N30.01 [facility] [address] [id number] [place] [id number] Jul, Reflux esophagitis K21.0 ; Acquired defo rmities of toe, 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 ; Multiple joint pain M25.50 and Sinus congestion R09.81 [facility] [id number] [place] [address], [place] [id number] Jul, [facility] [address] [facility] [id number] [place] [id number] Jun, Acute cystitis without hematuria N30.00 ; Dysuria R30.0 ; Flank pain R10.9 and High risk medication use Z79.899 [facility] [place] [address] [facility] [id number] [place] [id number] Jun, Urinary tract infection N39.0 [facility] [place] [address] [facility] [address] [id number] [id number] Jun, [facility] [place] [address] [facility] [id number] [place] [id number] Jun, Urinary tract infection, site not specif ied 599.0 and Encounter for immunization Z23 [facility] [place] [id number] [facility] [id number] [id number] Jun, [facility] [place] [address] [facility] [id number] [place] [id number] May, [facility] [place] [id number] [place] [id number] Dec, [facility] [address] [id number] [address] [place] [address] Dec, [facility] [address] [id number] [address] [place] [address] Dec, [facility] [place] [address] [facility] [id number] [place] [id number] Oct, [facility] [address] [id number] [address] [place] [address] Oct, [facility] [place] [address] [facility] [id number] [place] [id number] Sep, [facility] [address] [id number] [address] [place] [address] Sep, [facility] [place] [address] [facility] [id number] [place] [id number] Sep, [facility] [address] [id number] [address] [place] [address] Sep, [facility] [place] [address] [id number] [place] [id number] Aug, [facility] [place] [address] [id number] [place] [id number] Aug, [facility] [address] [id number] [facility] [place] [address] Aug, [facility] [address] [id number] [address] [place] [address], [place] [address] Aug, [facility] [place] [address] [id number] [place] [id number] Aug, [facility] [address] [id number] [address] [place] [address], [place] [address] Aug, [facility] [place] [address] [id number] [place] [id number] Jul, [facility] [address] [id number] [address] [place] [address], [place] [address] Jul, [facility] [place] [address] [id number] [place] [id number] Jul, [facility] [address] [id number] [address] [place] [address], [place] [address] Jul, [facility] [place] [address] [id number] [place] [id number] Jul, [facility] [address] [id number] [address] [place] [address], [place] [address] Jul, [facility] [place] [address] [id number] [place] [id number] Jul, [facility] [address] [id number] [address] [place] [address], [place] [address] Jul, [facility] [address] [id number] [address] [place] [address], [place] [address] Jun, [facility] [address] [id number] [address] [place] [address], [place] [address] Jun, [facility] [place] [address] [id number] [place] [id number] Jun, [facility] [address] [id number] [address] [place] [address], [place] [address] Jun, [facility] [address] [id number] [address] [place] [address], [place] [address] Jun, [facility] [place] [address] [id number] [place] [id number] Jun, [facility] [place] [address] [id number] [place] [id number] Jun, [facility] [address] [id number] [address] [place] [address], [place] [address] Jun, [facility] [place] [address] [id number] [place] [id number] Jun, [facility] [address] [id number] [address] [place] [address], [place] [address] Jun, [facility] [place] [address] [id number] [place] [id number] May, [facility] [address] [id number] [address] [place] [address], [place] [address] May, [facility] [place] [address] [id number] [place] [id number] May, [facility] [address] [id number] [address] [place] [address], [place] [address] May, [facility] [address] [id number] [address] [place] [address], [place] [address] Apr, [facility] [address] [id number] [address] [place] [address], [place] [address] Apr, [facility] [place] [address] [id number] [place] [id number] Apr, [facility] [address] [id number] [address] [place] [address], [place] [address] Apr, [facility] [place] [address] [id number] [place] [id number] Mar, [facility] [address] [id number] [address] [place] [address], [place] [address] Mar, [facility] [place] [address] [id number] [place] [id number] Feb, [facility] [address] [id number] [address] [place] [address], [place] [address] Feb, [facility] [place] [address] [id number] [place] [id number] January, [facility] [address] [id number] [address] [place] [address], [place] [address] January, [facility] [place] [address] [id number] [place] [id number] January, [facility] [address] [id number] [address] [place] [address], [place] [address] January, [facility] [place] [address] [id number] [place] [id number] Dec, [facility] [address] [id number] [address] [place] [address], [place] [address] Dec, [facility] [place] [address] [id number] [place] [id number] Dec, [facility] [address] [id number] [address] [place] [address], [place] [address] Dec, [facility] [place] [address] [id number] [place] [id number] Nov, [facility] [address] [id number] [address] [place] [address], [place] [address] Nov, [facility] [address] [id number] [address] [place] [address], [place] [address] Oct, [facility] [address] [id number] [address] [place] [address], [place] [address] Oct, [facility] [address] [id number] [address] [place] [address], [place] [address] Sep, [facility] [place] [address] [id number] [place] [id number] Sep, [facility] [place] [address] [id number] [place] [id number] Sep, [facility] [address] [id number] [address] [place] [address], [place] [address] Sep, [facility] [place] [address] [id number] [place] [id number] Aug, [facility] [address] [id number] [address] [place] [address], [place] [address] Aug, [facility] [place] [address] [id number] [place] [id number] Jul, [facility] [address] [id number] [address] [place] [address], [place] [address] Jul, [facility] [place] [address] [id number] [place] [id number] Jul, [facility] [address] [id number] [address] [place] [address] Jul, [facility] [place] [address] [id number] [place] [id number] Jul, [facility] [address] [id number] [address] [place] [address], [place] [address] Jul, [facility] [place] [address] [id number] [place] [id number] Jul, [facility] [address] [id number] [address] [place] [address] Jul, [facility] [address] [id number] [address] [place] [address], [place] [address] Jul, [facility] [place] [address] [id number] [place] [id number] Jun, [facility] [address] [id number] [address] [place] [address], [place] [address] Jun, [facility] [place] [address] [id number] [place] [id number] Jun, [facility] [place] [address] [id number] [place] [id number] Jun, [facility] [address] [facility] [id number] [address] [place] [address] Jun, [facility] [address] [facility] [id number] [address] [place] [address] Jun, [facility] [place] [address] [id number] [place] [id number] Jun, [facility] [address] [facility] [id number] [address] [place] [address] Jun, [facility] [address] [facility] [id number] [address] [place] [address] Jun, [facility] [place] [address] [id number] [place] [id number] May, [facility] [place] [address] [id number] [place] [id number] May, [facility] [place] [address] [id number] [place] [id number] May, [facility] [place] [address] [id number] [place] [id number] May, [facility] [place] [address] [id number] [place] [id number] Apr, [facility] [place] [address] [id number] [place] [id number] Feb, [facility] [place] [address] [id number] [place] [id number] Feb, [facility] [address] [id number] [address] [place] [id number] Feb, [facility] [place] [address] [id number] [place] [id number] January, [facility] [address] [facility] [id number] [address] [place] [id number] January, [facility] [place] [address] [id number] [place] [id number] January, [facility] [place] [address] [id number] [place] [id number] January, [facility] [place] [address] [id number] [place] [id number] January, [facility] [address] [id number] [address] [place] [address], [place] [address] Nov, [facility] [address] [id number] [address] [place] [address], [place] [phone] Nov, [facility] [place] [address] [id number] [place] [id number] Oct, [facility] [place] [address] [id number] [place] [id number] Oct, [facility] [place] [address] [id number] [place] [id number] Oct, [facility] [place] [address] [id number] [place] [id number] Oct, [facility] [address] [facility] [id number] [address] [place] [address], [place] [address] Oct, [facility] [address] [facility] [id number] [address] [place] [id number] Oct, [facility] [place] [address] [id number] [place] [id number] Sep, [facility] [address] [facility] [id number] [address] [place] [id number] Sep, [facility] [place] [address] [id number] [place] [id number] Sep, [facility] [place] [address] [id number] [place] [id number] Sep, [facility] [place] [address] [id number] [place] [id number] Jun, [facility] [address] [facility] [id number] [address] [place] [address], [place] [address] Jun, [facility] [place] [address] [id number] [place] [id number] May, [facility] [place] [address] [id number] [place] [id number] May, [facility] [place] [address] [id number] [place] [id number] Apr, [facility] [place] [address] [id number] [place] [id number] Apr, [facility] [place] [address] [id number] [place] [id number] Apr, [facility] [place] [address] [id number] [place] [id number] Mar, [facility] [address] [facility] [id number] [address] [place] [id number] Feb, [facility] [place] [address] [id number] [place] [id number] Nov, [facility] [place] [address] [id number] [place] [id number] Nov, [facility] [address] [facility] [id number] [address] [place] [id number] Nov, [facility] [address] [facility] [id number] [address] [place] [id number] Nov, [facility] [address] [place] [id number] [address] [place] [id number] Nov, [facility] [place] [address] [id number] [place] [id number] Nov, [facility] [place] [address] [facility] [id number] [place] [id number] Sep, [facility] [place] [address] [facility] [id number] [place] [id number] Sep, IMMUNIZATIONS No Known Immunizations SOCIAL HISTORY Never Assessed REASON FOR VISIT med refill PLAN OF CARE VITAL SIGNS MEDICATIONS Medication Instructions Dosage Frequency Start Date End Date Duration S abhijit Fluticasone Propionate 50 mcg/act Nasally Once a day 2 spray in each nostril 24h 30 days Active RESULTS No Results [...] L4-S1 03/06/2016 Surgical History Hemmroidectomy-Dr. YANG in [place] 2013 Surgical History EGD/Colonoscopy 07/27/18 Hospitalization History surgeries Hospitalization History [facility] for abdominal/chest pain 07/2015 Hospitalization History Inpt for lumbar surgery x's 10 days 02/2015 Hospitalization History Pt was in [facility] home for rehab from surgery, Dx with UTI -03/2016
--- OUTSIDE RECORDS SUMMARY | 2019-09-07 21:28 | XMS REPORT ---
Author Author Paola White Doctor Organization [facility] Address Unknown Phone Unavailable Care Team Providers Care Cream Cheese Maker Name Role Phone Migration, Doctor Unavailable Unavailable PROBLEMS Type Condition ICD9-CM Code NHS70-RZ Code Onset Dates Condition S tatus SNOMED Code Problem Abnormal MRI, lumbar spine R93.7 Act sung 229269597 Problem Hyperlipemia, mixed E78.2 Active 591238468 Problem Esophageal reflux K21.9 Active 24 9538598 Problem Non-seasonal allergic rhinitis due to pollen J30.1 Active 54746689 Problem COPD (chronic obstructive pulmonary disease) J44.9 Active 63597538 Problem Essential hypertension I10 Active 71618088 Problem Acquired hypothyroidism E03.9 Active 155804359 Problem Neuropathy G62.9 Active 810731909 Problem Chronic fatigue R53.82 Active 5270 2003 ALLERGIES No Information ENCOUNTERS Encounter Location Date Diagnosis [facility] [address] [id number] [place] [id number] Sep, [facility] [address] [id number] [place] [id number] Sep, COPD (chronic obstructive pulmonary dise ase) J44.9 ; Essential hypertension I10 ; Hyperlipemia, mixed E78.2 ; Acquired hypothyroidism E03.9 ; Esophageal reflux K21.9 ; Midline low back pain, unspecified chronicity, with sciatica presence unspecified M54.5 and Michaelle infection B37.9 [facility] [address] [id number] [place] [id number] Sep, Toenail fungus B35.1 [facility] [address] [id number] [place] [id number] Aug, [facility] [address] [id number] [place] [id number] Aug, Rhinitis J31.0 [facility] [address] [id number] [id number] Aug, [facility] [address] [facility] [id number] [place] [id number] Aug, [facility] [address] [facility] [id number] [place] [id number] Aug, [facility] Levy0 [facility] [id number] [place] [id number] Jul, Urinary tract infection, site not specif ied N39.0 and Dysuria R30.0 [facility] [address] [facility] [id number] [place] [id number] Jun, Acquired hypothyroidism E03.9 ; Hyperlip emia, mixed E78.2 ; Essential hypertension I10 ; Esophageal reflux K21.9 ; COPD (chronic obstructive pulmonary disease) J44.9 ; Ingrown toenail L60.0 ; Foot pain, bilateral M79.671 ; Noncompliance by refusing intervention or support Z53.29 ; Colon cancer screening Z12.11 and Rhinitis J31.0 [facility] [address] [facility] [id number] [place] [id number] Jun, Hyperlipemia, mixed E78.2 [facility] [address] [id number] [place] [id number] Jun, Hypothyroidism, unspecified type E03.9 ; Hyperlipemia, mixed E78.2 ; Essential hypertension I10 and Encounter for immunization Z23 [facility] [id number] [place] [id number] Jun, [facility] [address] [facility] [id number] [place] [id number] May, Essential hypertension I10 [facility] [address] [facility] [id number] [place] [id number] May, Hypothyroidism, unspecified type E03.9 ; Essential hypertension I10 and Hyperlipemia, mixed E78.2 [facility] [address] [id number] [place] [id number] Apr, [facility] [address] [facility] [id number] [place] [id number] Apr, Abnormal mammogram of left breast R92.8 [facility] [address] [id number] [place] [id number] Mar, Abnormal mammogram of left breast R92.8 [facility] [place] [address] [id number] [place] [id number] Mar, [facility] [address] [id number] [place] [id number] Mar, [facility] [address] [facility] [id number] [place] [address] Feb, Sore throat and laryngitis J 06.0 and Strep throat J02.0 [facility] [place] [address] [facility] [id number] [place] [address] Dec, [facility] [place] [address] [id number] [place] [id number] Dec, [facility] [place] [address] [id number] [place] [id number] Dec, Dilated pore of Mk of back L70.8 ; Se borrheic keratoses L82.1 and Non- seasonal allergic rhinitis due to pollen J30.1 [facility] [place] [address] [id number] [place] [id number] Dec, [facility] [address] [id number][place] [phone] Oct, [facility] [place] [address] [id number] [place] [id number] Oct, Screening breast examination Z12.31 and History of abnormal mammogram Z87.898 [facility] [place] [address] [id number] [place] [id number] Sep, [facility] [place] [address] [id number] [place] [id number] Sep, [facility] [place] [address] [id number] [place] [id number] Sep, [facility] [place] [address] [id number] [place] [id number] Jun, Obesity (BMI 30.0-34.9) E66.9 ; Chronic fatigue R53.82 ; Neuropathy G62.9 ; Essential hypertension I10 and Encounter for immunization Z23 [facility] [place] [address] [id number] [place] [id number] Jun, Neuropathy G62.9 and Essential hypertens ion I10 [facility] [place] [address] [id number] [place] [id number] Apr, [facility] [place] [address] [id number] [place] [address], [place] [id number] Mar, Neuropathy G62.9 ; Hypothyroidism, unspe cified type E03.9 ; Essential hypertension I10 ; Muscle spasm M62.838 and Hyperlipemia, mixed E78.2 [facility] [place] [address] [id number] [place] [address], [place] [id number] Feb, [facility] [place] [address] [id number] [place] [id number] January, [facility] [place] [address] [place] [address], [place] [id number] Dec, [facility] [place] [address] [id number] [place] [id number] Dec, Hypothyroidism, unspecified type E03.9 [facility] [place] [address] [id number] [place] [id number] Nov, [facility] [place] [address] [id number] [place] [id number] Nov, Neuropathy G62.9 ; Sinus congestion R09. 81 ; Hyperlipemia, mixed E78.2 and Hypothyroidism, unspecified type E03.9 [facility] [place] [address] [id number] [place] [id number] Nov, Neuropathy G62.9 [facility] [place] [address] [id number] [place] [id number] Nov, Sinus congestion R09.81 and Acquired hyp othyroidism E03.9 [facility] [place] [address] [id number] [place] [id number] Nov, Acquired hypothyroidism E03.9 [facility] [place] [address] [id number] [place] [id number] Oct, [facility] [place] [address] [facility] [id number] [place] [id number] Oct, Sinus congestion R09.81 and Neuropathy G 62.9 [place] [id number] [place] [id number] 14 Oct, 2016 Fever, unspecified R50.9 ; Sinus congest ion R09.81 and Neuropathy G62.9 [place] [address] [id number] [place] [address] Oct, [facility] [place] [address] [facility] [id number] [place] [id number] Oct, Abnormal mammogram of left breast R92.8 [address] [id number] Sep, Abnormal mammogram R92.[address] [place] [address], [place] [id number] Sep, Acquired hypothyroidism E03.9 [address], [place] [id number] Sep, Hypothyroidism, unspecified type E03.9 ; Hyperlipemia, mixed E78.2 and Essential hypertension I10 [address], [place] [id number] Sep, Hypothyroidism, unspecified type E03.9 a nd Hyperlipemia, mixed E78.[address] [place] [address], [place] [id number] Aug, Acute maxillary sinusitis, recurrence no t specified J01.00 [place] [id number] [id number] Jul, Hyperlipemia, mixed E78.2 [facility] [address] [id number] Jul, Acquired hypothyroidism E03.9 ; Hyperlip emia, mixed E78.2 ; Multiple joint pain M25.50 ; Esophageal reflux K21.9 ; Otitis media with effusion, right H65.91 and Essential hypertension I10 [address] [place] [address], [place] [id number] Jul, Gastroesophageal reflux disease, esophag itis presence not specified K21.9 [facility] [place] [address] [id number] [place] [id number] May, [facility] [place] [address] [id number] [place] [id number] Apr, Cystitis N30.90 and Well woman exam Z01. 419 [facility] [address] [id number] [place] [id number] Apr, Hematuria R31.9 and Dysuria R30.0 [facility] [address] [id number] [place] [id number] Apr, [facility] [address] [id number] [place] [id number] Apr, Urinary tract infection, site not specif ied N39.0 and Hematuria, unspecified R31.9 [facility] [address] [id number] [place] [id number] Dec, [facility] [place] [address] [id number] [place] [id number] Nov, [facility] [address] [id number] [place] [id number] Oct, Hyperlipemia, mixed E78.2 [facility] [address] [id number] [place] [id number] Oct, Gastroesophageal reflux disease, esophag itis presence not specified K21.9 ; Acute serous otitis media of left ear, recurrence not specified H65.02 ; Hyperlipemia, mixed E78.2 and Hypothyroidism, unspecified type E03.9 [facility] [address] [id number] [place] [id number] Sep, [facility] [address] [id number] [place] [id number] Sep, Actinic keratoses L57.0 and Stuffy and r unny nose J34.89 [facility] [address] [id number] [place] [id number] Aug, [facility] [address] [facility] [id number] [place] [id number] Aug, Acute cystitis with hematuria N30.01 [facility] [address] [facility] [id number] [place] [id number] Jul, Reflux esophagitis K21.0 ; Acquired defo rmities of toe, 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 ; Multiple joint pain M25.50 and Sinus congestion R09.81 [facility] [address] [facility] [id number] [place] [id number] Jul, [facility] [address] [facility] [id number] [place] [id number] Jun, Acute cystitis without hematuria N30.00 ; Dysuria R30.0 ; Flank pain R10.9 and High risk medication use Z79.899 [facility] [address] [facility] [id number] [place] [id number] Jun, Urinary tract infection N39.0 [facility] [address] [id number] [id number] Jun, [facility] [address] [facility] [id number] [place] [id number] Jun, Urinary tract infection, site not specif ied 599.0 and Encounter for immunization Z23 [facility] [place] [address] [facility] [id number] [place] [id number] Jun, [facility] [address] [facility] [id number] [place] [id number] May, [address] [id number] [place] [id number] Dec, [facility] [place] [address] [facility] [id number] [address] [place] [address] Dec, [facility] [place] [address] [id number] [address] [place] [address] Dec, [address] [id number] [place] [id number] Oct, [facility] [place] [address] [place] [address], [place] [address] Oct, [facility] [place] [address] [id number] [place] [id number] Sep, [facility] [address] [id number] [address] [place] [address], [place] [address] Sep, [facility] [place] [address] [id number] [place] [id number] Sep, [facility] [address] [id number] [address] [place] [address], [place] [address] Sep, [facility] [place] [address] [id number] [place] [id number] Aug, [facility] [place] [address] [id number] [place] [id number] Aug, [facility] [address] [facility] [id number] [address] [place] [address], [place] [address] Aug, [facility] [address] [id number] [address] [place] [address], [place] [address] Aug, [facility] [place] [address] [id number] [place] [id number] Aug, [facility] [address] [id number] [address] [place] [address] Aug, [facility] [place] [address] [id number] [place] [id number] Jul, [facility] [address] [id number] [address] [place] [address], [place] [address] Jul, [facility] [place] [address] [id number] [place] [id number] Jul, [facility] [address] [id number] [address] [place] [address], [place] [address] Jul, [facility] [place] [address] [id number] [place] [id number] Jul, [facility] [address] [facility] [id number] [address] [place] [address], [place] [address] Jul, [facility] [place] [address] [id number] [place] [id number] Jul, [facility] [address] [id number] [address] [place] [address], [place] [address] Jul, [facility] [address] [id number] [address] [place] [address], [place] [address] Jun, [facility] [address] [id number] [address] [place] [address], [place] [address] Jun, [facility] [place] [address] [id number] [place] [id number] Jun, [facility] [address] [id number] [address] [place] [address], [place] [address] Jun, [facility] [address] [id number] [address] [place] [address], [place] [address] Jun, [facility] [place] [address] [id number] [place] [id number] Jun, [facility] [place] [address] [id number] [place] [id number] Jun, [facility] [address] [id number] [address] [place] [address], [place] [address] Jun, [facility] [place] [address] [id number] [place] [id number] Jun, [facility] [address] [id number] [address] [place] [address], [place] [address] Jun, [facility] [place] [address] [id number] [place] [id number] May, [facility] [address] [id number] [address] [place] [address], [place] [address] May, [facility] [place] [address] [id number] [place] [id number] May, [facility] [address] [id number] [address] [place] [address], [place] [address] May, [facility] [address] [id number] [facility] [place] [address] Apr, [facility] [address] [id number] [facility] [place] [address] Apr, [facility] [place] [address] [id number] [place] [id number] Apr, [facility] [address] [id number] [facility] [place] [address] Apr, [facility] [place] [address] [id number] [place] [id number] Mar, [facility] [address] [id number] [facility] [place] [address] Mar, [facility] [place] [address] [id number] [place] [id number] Feb, [facility] [address] [id number] [facility] [place] [address] Feb, [facility] [place] [address] [id number] [place] [id number] January, [facility] [address] [id number] [address] [place] [address], [place] [address] January, [facility] [place] [address] [id number] [place] [id number] January, [facility] [address] [id number] [facility] [place] [address] January, [facility] [place] [address] [id number] [place] [id number] Dec, [facility] [address] [id number] [facility] [place] [address] Dec, [facility] [place] [address] [id number] [place] [id number] Dec, [facility] [address] [id number] [facility] [place] [address] Dec, [facility] [place] [address] [id number] [place] [id number] Nov, [facility] [address] [id number] [address] [place] [address], [place] [address] Nov, [facility] [address] [id number] [address] [place] [address], [place] [address] Oct, [facility] [address] [id number] [address] [place] [address], [place] [address] Oct, [facility] [address] [id number] [address] [place] [address], [place] [address] Sep, [facility] [place] [address] [id number] [place] [id number] Sep, [facility] [place] [address] [id number] [place] [id number] Sep, [facility] [address] [id number] [address] [place] [address], [place] [address] Sep, [facility] [place] [address] [id number] [place] [id number] Aug, [facility] [address] [id number] [address] [place] [address], [place] [address] Aug, [facility] [place] [address] [id number] [place] [id number] Jul, [facility] [address] [id number] [address] [place] [address], [place] [address] Jul, [facility] [place] [address] [id number] [place] [id number] Jul, [facility] [address] [id number] [address] [place] [address], [place] [address] Jul, [facility] [place] [address] [id number] [place] [id number] Jul, [facility] [address] [id number] [address] [place] [address], [place] [address] Jul, [facility] [place] [address] [id number] [place] [id number] Jul, [facility] [address] [id number] [address] [place] [address] Jul, [facility] [address] [facility] [id number] [address] [place] [address] Jul, [facility] [place] [address] [id number] [place] [id number] Jun, [facility] [address] [facility] [id number] [address] [place] [address] Jun, [facility] [place] [address] [id number] [place] [id number] Jun, [facility] [place] [address] [id number] [place] [id number] Jun, [facility] [address] [facility] [id number] [address] [place] [address] Jun, [facility] [address] [facility] [id number] [address] [place] [address] Jun, [facility] [place] [address] [id number] [place] [id number] Jun, [facility] [address] [facility] [id number] [address] [place] [address] Jun, [facility] [address] [facility] [id number] [address] [place] [address] Jun, [facility] [place] [address] [id number] [place] [id number] May, [facility] [place] [address] [id number] [place] [id number] May, [facility] [place] [address] [id number] [place] [id number] May, [facility] [place] [address] [id number] [place] [id number] May, [facility] [place] [address] [id number] [place] [id number] Apr, [facility] [place] [address] [id number] [place] [id number] Feb, [facility] [place] [address] [id number] [place] [id number] Feb, [facility] [address] [id number] [address] [place] [address], [place] [address] Feb, [facility] [place] [address] [id number] [place] [id number] January, [facility] [address] [facility] [id number] [address] [place] [address], [place] [address] January, [facility] [place] [address] [id number] [place] [id number] January, [facility] [place] [address] [id number] [place] [id number] January, [facility] [place] [address] [id number] [place] [id number] January, [facility] [address] [facility] [id number] [address] [place] [address], [place] [address] Nov, [facility] [address] [id number] [address] [place] [address], [place] [address] Nov, [facility] [place] [address] [id number] [place] [id number] Oct, [facility] [place] [address] [id number] [place] [id number] Oct, [facility] [place] [address] [id number] [place] [id number] Oct, [facility] [place] [address] [id number] [place] [id number] Oct, [facility] [address] [facility] [id number] [address] [place] [address], [place] [address] Oct, [facility] [address] [facility] [id number] [address] [place] [id number] Oct, [facility] [place] [address] [id number] [place] [id number] Sep, [facility] [address] [facility] [id number] [address] [place] [id number] Sep, [facility] [place] [address] [id number] [place] [id number] Sep, [facility] [place] [address] [id number] [place] [id number] Sep, [facility] [place] [address] [id number] [place] [id number] Jun, [facility] [address] [id number] [address] [place] [address], [place] [address] Jun, [facility] [place] [address] [id number] [place] [id number] May, [facility] [place] [address] [id number] [place] [id number] May, [facility] [place] [address] [id number] [place] [id number] Apr, [facility] [place] [address] [id number] [place] [id number] Apr, [facility] [place] [address] [id number] [place] [id number] Apr, [facility] [place] [address] [id number] [place] [id number] Mar, [facility] [address] [id number] [address] [place] [address], [place] [address] Feb, [facility] [place] [address] [id number] [place] [id number] Nov, [facility] [place] [address] [id number] [place] [id number] Nov, [facility] [address] [facility] [id number] [address] [place] [id number] Nov, [facility] [address] [facility] [id number] [address] [place] [id number] Nov, [facility] [address] [facility] [id number] [address] [place] [id number] Nov, [facility] [place] [address] [id number] [place] [id number] Nov, [facility] [place] [address] [id number] [place] [facility] [id number] Sep, [facility] [address] [facility] [id number] [place] [facility] [id number] Sep, IMMUNIZATIONS No Known Immunizations SOCIAL HISTORY Never Assessed REASON FOR VISIT EMR-[facility] OF CARE VITAL SIGNS MEDICATIONS Unknown [...] [id number] 03/06/2016 Surgical History Hemmroidectomy-Dr. YANG in [place] 2013 Surgical History EGD/Colonoscopy 07/27/18 Hospitalization History surgeries Hospitalization History [facility] for abdominal/chest pain 07/2015 Hospitalization History Inpt for lumbar surgery x's 10 days 02/2015 Hospitalization History Pt was in [facility] home for rehab from surgery, Dx with UTI -03/2016
--- OUTSIDE RECORDS SUMMARY | 2019-09-07 21:28 | XMS REPORT ---
Author Author Paola White Doctor Organization [facility] Address Unknown Phone Unavailable Care Team Providers Care Pilling Machine Operator Name Role Phone Migration, Doctor Unavailable Unavailable PROBLEMS Type Condition ICD9-CM Code DEU16-BN Code Onset Dates Condition S tatus SNOMED Code Problem Abnormal MRI, lumbar spine R93.7 Act sung 917444190 Problem Hyperlipemia, mixed E78.2 Active 727927285 Problem Esophageal reflux K21.9 Active 24 6350370 Problem Non-seasonal allergic rhinitis due to pollen J30.1 Active 12261142 Problem COPD (chronic obstructive pulmonary disease) J44.9 Active 13441890 Problem Essential hypertension I10 Active 85177218 Problem Acquired hypothyroidism E03.9 Active 706808415 Problem Neuropathy G62.9 Active 908982635 Problem Chronic fatigue R53.82 Active 5270 2003 ALLERGIES No Information ENCOUNTERS Encounter Location Date Diagnosis [facility] [address] [id number] [place] [id number] Sep, [facility] [address] [id number] [place] [id number] Sep, COPD (chronic obstructive pulmonary dise ase) J44.9 ; Essential hypertension I10 ; Hyperlipemia, mixed E78.2 ; Acquired hypothyroidism E03.9 ; Esophageal reflux K21.9 ; Midline low back pain, unspecified chronicity, with sciatica presence unspecified M54.5 and Michaelle infection B37.9 [facility] [address] [id number] [place] [id number] Sep, Toenail fungus B35.1 [facility] [address] [id number] [place] [id number] Aug, [facility] [address] [id number] [place] [id number] Aug, Rhinitis J31.[address] [facility] [address] [id number] [id number] Aug, [place] [address] [facility] [id number] [place] [id number] Aug, [facility] [address] [facility] [id number] [place] [id number] Aug, [facility] Levy0 [facility] [id number] [place] [id number] Jul, Urinary tract infection, site not specif ied N39.0 and Dysuria R30.0 [facility] [address] [facility] [id number] [place] [id number] Jun, Acquired hypothyroidism E03.9 ; Hyperlip emia, mixed E78.2 ; Essential hypertension I10 ; Esophageal reflux K21.9 ; COPD (chronic obstructive pulmonary disease) J44.9 ; Ingrown toenail L60.0 ; Foot pain, bilateral M79.671 ; Noncompliance by refusing intervention or support Z53.29 ; Colon cancer screening Z12.11 and Rhinitis J31.0 [facility] [address] [facility] [id number] [place] [id number] Jun, Hyperlipemia, mixed E78.2 [facility] [address] [place] [address] [id number] [place] [id number] Jun, Hypothyroidism, unspecified type E03.9 ; Hyperlipemia, mixed E78.2 ; Essential hypertension I10 and Encounter for immunization Z23 [facility] [id number] [place] [id number] Jun, [facility] [address] [facility] [id number] [place] [id number] May, Essential hypertension I10 [facility] [address] [facility] [id number] [place] [id number] May, Hypothyroidism, unspecified type E03.9 ; Essential hypertension I10 and Hyperlipemia, mixed E78.2 [facility] [address] [place] [address] [id number] [place] [id number] Apr, [facility] [address] [facility] [id number] [place] [id number] Apr, Abnormal mammogram of left breast R92.8 [facility] [address] [id number] [place] [id number] Mar, Abnormal mammogram of left breast R92.8 [facility] [place] [address] [id number] [place] [id number] Mar, [facility] [place] [address] [id number] [place] [id number] Mar, [facility] [address] [facility] [id number] [place] [address] Feb, Sore throat and laryngitis J 06.0 and Strep throat J02.0 [facility] [address] [facility] [id number] 100[place] [address] Dec, [facility] [place] [address] [id number] [place] [id number] Dec, [facility] [place] [address] [id number] [place] [id number] Dec, Dilated pore of Mk of back L70.8 ; Se borrheic keratoses L82.1 and Non- seasonal allergic rhinitis due to pollen J30.1 [facility] [place] [address] [id number] [place] [id number] Dec, [facility] [id number] [id number] [id number] Oct, [facility] [place] [address] [id number] [place] [id number] Oct, Screening breast examination Z12.31 and History of abnormal mammogram Z87.898 [facility] [place] [address] [id number] [place] [id number] Sep, [facility] [place] [address] [id number] [place] [id number] Sep, [facility] [place] [address] [id number] [place] [id number] Sep, [facility] [place] [address] [id number] [place] [id number] Jun, Obesity (BMI 30.0-34.9) E66.9 ; Chronic fatigue R53.82 ; Neuropathy G62.9 ; Essential hypertension I10 and Encounter for immunization Z23 [facility] [place] [address] [id number] [place] [id number] Jun, Neuropathy G62.9 and Essential hypertens ion I10 [facility] [place] [address] [id number] [place] [id number] Apr, [facility] [place] [id number] [place] [address], [place] [id number] Mar, Neuropathy G62.9 ; Hypothyroidism, unspe cified type E03.9 ; Essential hypertension I10 ; Muscle spasm M62.838 and Hyperlipemia, mixed E78.2 [facility] [place] [address] [id number] [place] [address], [place] [id number] Feb, [facility] [place] [address] [id number] [place] [id number] January, [facility] [place] [address] [place] [address], [place] [id number] Dec, [facility] [place] [address] [id number] [place] [id number] Dec, Hypothyroidism, unspecified type E03.9 [facility] [place] [address] [id number] [place] [id number] Nov, [facility] [place] [address] [id number] [place] [id number] Nov, Neuropathy G62.9 ; Sinus congestion R09. 81 ; Hyperlipemia, mixed E78.2 and Hypothyroidism, unspecified type E03.9 [facility] [place] [address] [id number] [place] [id number] Nov, Neuropathy G62.9 [facility] [place] [address] [id number] [place] [id number] Nov, Sinus congestion R09.81 and Acquired hyp othyroidism E03.9 [facility] [place] [address] [id number] [place] [id number] Nov, Acquired hypothyroidism E03.9 [facility] [place] [address] [id number] [place] [id number] Oct, [facility] [place] [address] [facility] [id number] [place] [id number] Oct, Sinus congestion R09.81 and Neuropathy G 62.9 [place] [id number] [place] [id number] 14 Oct, 2016 Fever, unspecified R50.9 ; Sinus congest ion R09.81 and Neuropathy G62.9 [place] [address] [id number] [place] [address] Oct, [facility] [place] [address] [facility] [id number] [place] [id number] Oct, Abnormal mammogram of left breast R92.8 [address] [id number] Sep, Abnormal mammogram R92.[address] [place] [address], [place] [id number] Sep, Acquired hypothyroidism E03.9 [address] [id number] Sep, Hypothyroidism, unspecified type E03.9 ; Hyperlipemia, mixed E78.2 and Essential hypertension I10 [address], [place] [id number] Sep, Hypothyroidism, unspecified type E03.9 a nd Hyperlipemia, mixed E78.[address] [place] [address], [place] [id number] Aug, Acute maxillary sinusitis, recurrence no t specified J01.00 [place] [id number] [id number] Jul, Hyperlipemia, mixed E78.2 [facility] [address] [id number] Jul, Acquired hypothyroidism E03.9 ; Hyperlip emia, mixed E78.2 ; Multiple joint pain M25.50 ; Esophageal reflux K21.9 ; Otitis media with effusion, right H65.91 and Essential hypertension I10 [address] [place] [address], [place] [id number] Jul, Gastroesophageal reflux disease, esophag itis presence not specified K21.9 [facility] [place] [address] [id number] [place] [id number] May, [facility] [place] [address] [id number] [place] [id number] Apr, Cystitis N30.90 and Well woman exam Z01. 419 [facility] [address] [id number] [place] [id number] Apr, Hematuria R31.9 and Dysuria R30.0 [facility] [address] [id number] [place] [id number] Apr, [facility] [address] [id number] [place] [id number] Apr, Urinary tract infection, site not specif ied N39.0 and Hematuria, unspecified R31.9 [facility] [address] [id number] [place] [id number] Dec, [facility] [place] [address] [id number] [place] [id number] Nov, [facility] [address] [id number] [place] [id number] Oct, Hyperlipemia, mixed E78.2 [facility] [address] [id number] [place] [id number] Oct, Gastroesophageal reflux disease, esophag itis presence not specified K21.9 ; Acute serous otitis media of left ear, recurrence not specified H65.02 ; Hyperlipemia, mixed E78.2 and Hypothyroidism, unspecified type E03.9 [facility] [address] [id number] [place] [id number] Sep, [facility] [address] [id number] [place] [id number] Sep, Actinic keratoses L57.0 and Stuffy and r unny nose J34.89 [facility] [address] [id number] [place] [id number] Aug, [facility] [address] [facility] [id number] [place] [id number] Aug, Acute cystitis with hematuria N30.01 [facility] [address] [facility] [id number] [place] [id number] Jul, Reflux esophagitis K21.0 ; Acquired defo rmities of toe, 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 ; Multiple joint pain M25.50 and Sinus congestion R09.81 [facility] 120 [facility] [id number] [place] [id number] Jul, [facility] 120 [facility] [id number] [place] [id number] Jun, Acute cystitis without hematuria N30.00 ; Dysuria R30.0 ; Flank pain R10.9 and High risk medication use Z79.899 [facility] 120 [facility] [id number] [place] [id number] Jun, Urinary tract infection N39.[address] [facility] [address] [id number] [id number] Jun, [facility] 120 [facility] [id number] [place] [id number] Jun, Urinary tract infection, site not specif ied 599.0 and Encounter for immunization Z23 [facility] [address] [facility] [id number] [place] [id number] Jun, [facility] 120 [facility] [id number] [place] [id number] May, [address] [id number] [place] [id number] Dec, [facility] [address] [facility] [id number] [address] [place] [address] Dec, [facility] [address] [place] [id number] [address] [place] [address] Dec, [address] [id number] [place] [id number] Oct, [facility] [address] [place] [address], [place] [address] Oct, [facility] [place] [address] [id number] [place] [id number] Sep, [facility] [address] [id number] [address] [place] [address], [place] [address] Sep, [facility] [place] [address] [id number] [place] [id number] Sep, [facility] [address] [id number] [address] [place] [address], [place] [address] Sep, [facility] [place] [address] [id number] [place] [id number] Aug, [facility] [place] [address] [id number] [place] [id number] Aug, [facility] [address] [facility] [id number] [address] [place] [address], [place] [address] Aug, [facility] [address] [id number] [address] [place] [address], [place] [address] Aug, [facility] [place] [address] [id number] [place] [id number] Aug, [facility] [address] [id number] [address] [place] [address] Aug, [facility] [place] [address] [id number] [place] [id number] Jul, [facility] [address] [id number] [address] [place] [address], [place] [address] Jul, [facility] [place] [address] [id number] [place] [id number] Jul, [facility] [address] [id number] [address] [place] [address], [place] [address] Jul, [facility] [place] [address] [id number] [place] [id number] Jul, [facility] [address] [facility] [id number] [address] [place] [address], [place] [address] Jul, [facility] [place] [address] [id number] [place] [id number] Jul, [facility] [address] [id number] [address] [place] [address], [place] [address] Jul, [facility] [address] [id number] [address] [place] [address], [place] [address] Jun, [facility] [address] [id number] [address] [place] [address], [place] [address] Jun, [facility] [place] [address] [id number] [place] [id number] Jun, [facility] [address] [id number] [address] [place] [address], [place] [address] Jun, [facility] [address] [id number] [address] [place] [address], [place] [address] Jun, [facility] [place] [address] [id number] [place] [id number] Jun, [facility] [place] [address] [id number] [place] [id number] Jun, [facility] [address] [id number] [address] [place] [address], [place] [address] Jun, [facility] [place] [address] [id number] [place] [id number] Jun, [facility] [address] [id number] [address] [place] [address], [place] [address] Jun, [facility] [place] [address] [id number] [place] [id number] May, [facility] [address] [id number] [address] [place] [address], [place] [address] May, [facility] [place] [address] [id number] [place] [id number] May, [facility] [address] [id number] [address] [place] [address], [place] [address] May, [facility] [address] [id number] [facility] [place] [address] Apr, [facility] [address] [id number] [facility] [place] [address] Apr, [facility] [place] [address] [id number] [place] [id number] Apr, [facility] [address] [id number] [facility] [place] [address] Apr, [facility] [place] [address] [id number] [place] [id number] Mar, [facility] [address] [id number] [facility] [place] [address] Mar, [facility] [place] [address] [id number] [place] [id number] Feb, [facility] [address] [id number] [facility] [place] [address] Feb, [facility] [place] [address] [id number] [place] [id number] January, [facility] [address] [id number] [address] [place] [address], [place] [address] January, [facility] [place] [address] [id number] [place] [id number] January, [facility] [address] [id number] [facility] [place] [address] January, [facility] [place] [address] [id number] [place] [id number] Dec, [facility] [address] [id number] [facility] [place] [address] Dec, [facility] [place] [address] [id number] [place] [id number] Dec, [facility] [address] [id number] [facility] [place] [address] Dec, [facility] [place] [address] [id number] [place] [id number] Nov, [facility] [address] [id number] [address] [place] [address], [place] [address] Nov, [facility] [address] [id number] [address] [place] [address], [place] [address] Oct, [facility] [address] [id number] [address] [place] [address], [place] [address] Oct, [facility] [address] [id number] [address] [place] [address], [place] [address] Sep, [facility] [place] [address] [id number] [place] [id number] Sep, [facility] [place] [address] [id number] [place] [id number] Sep, [facility] [address] [id number] [address] [place] [address], [place] [address] Sep, [facility] [place] [address] [id number] [place] [id number] Aug, [facility] [address] [id number] [address] [place] [address], [place] [address] Aug, [facility] [place] [address] [id number] [place] [id number] Jul, [facility] [address] [id number] [address] [place] [address], [place] [address] Jul, [facility] [place] [address] [id number] [place] [id number] Jul, [facility] [address] [id number] [address] [place] [address], [place] [address] Jul, [facility] [place] [address] [id number] [place] [id number] Jul, [facility] [address] [id number] [address] [place] [address], [place] [address] Jul, [facility] [place] [address] [id number] [place] [id number] Jul, [facility] [address] [id number] [address] [place] [address] Jul, [facility] [address] [facility] [id number] [address] [place] [address] Jul, [facility] [place] [address] [id number] [place] [id number] Jun, [facility] [address] [facility] [id number] [address] [place] [address] Jun, [facility] [place] [address] [id number] [place] [id number] Jun, [facility] [place] [address] [id number] [place] [id number] Jun, [facility] [address] [facility] [id number] [address] [place] [address] Jun, [facility] [address] [facility] [id number] [address] [place] [address] Jun, [facility] [place] [address] [id number] [place] [id number] Jun, [facility] [address] [facility] [id number] [address] [place] [id number] Jun, [facility] [address] [facility] [id number] [address] [place] [id number] Jun, [facility] [place] [address] [id number] [place] [id number] May, [facility] [place] [address] [id number] [place] [id number] May, [facility] [place] [address] [id number] [place] [id number] May, [facility] [place] [address] [id number] [place] [id number] May, [facility] [place] [address] [id number] [place] [id number] Apr, [facility] [place] [address] [id number] [place] [id number] Feb, [facility] [place] [address] [id number] [place] [id number] Feb, [facility] [address] [id number] [address] [place] [address], [place] [address] Feb, [facility] [place] [address] [id number] [place] [id number] January, [facility] [address] [facility] [id number] [address] [place] [address], [place] [address] January, [facility] [place] [address] [id number] [place] [id number] January, [facility] [place] [address] [id number] [place] [id number] January, [facility] [place] [address] [id number] [place] [id number] January, [facility] [address] [facility] [id number] [address] [place] [address], [place] [address] Nov, [facility] [address] [id number] [address] [place] [address], [place] [address] Nov, [facility] [place] [address] [id number] [place] [id number] Oct, [facility] [place] [address] [id number] [place] [id number] Oct, [facility] [place] [address] [id number] [place] [id number] Oct, [facility] [place] [address] [id number] [place] [id number] Oct, [facility] [address] [facility] [id number] [address] [place] [address], [place] [address] Oct, [facility] [address] [facility] [id number] [address] [place] [id number] Oct, [facility] [place] [address] [id number] [place] [id number] Sep, [facility] [address] [facility] [id number] [address] [place] [id number] Sep, [facility] [place] [address] [id number] [place] [id number] Sep, [facility] [place] [address] [id number] [place] [id number] Sep, [facility] [place] [address] [id number] [place] [id number] Jun, [facility] [address] [id number] [address] [place] [address], [place] [address] Jun, [facility] [place] [address] [id number] [place] [id number] May, [facility] [place] [address] [id number] [place] [id number] May, [facility] [place] [address] [id number] [place] [id number] Apr, [facility] [place] [address] [id number] [place] [id number] Apr, [facility] [place] [address] [id number] [place] [id number] Apr, [facility] [place] [address] [id number] [place] [id number] Mar, [facility] [address] [id number] [address] [place] [address], [place] [address] Feb, [facility] [place] [address] [id number] [place] [id number] Nov, [facility] [place] [address] [id number] [place] [id number] Nov, [facility] [address] [facility] [id number] [address] [place] [id number] Nov, [facility] [address] [facility] [id number] [address] [place] [id number] Nov, [facility] [address] [facility] [place] [id number] [address] [place] [id number] Nov, [facility] [address] [id number] [place] [id number] Nov, [facility] [address] [id number] [place] [facility] [id number] Sep, [facility] [address] [facility] [id number] [place] [facility] [id number] Sep, IMMUNIZATIONS No Known Immunizations SOCIAL HISTORY Never Assessed REASON FOR VISIT EMR-[facility] PLAN OF CARE VITAL SIGNS MEDICATIONS Unknown [...] [id number] 03/06/2016 Surgical History Hemmroidectomy-Dr. YANG in [place] 2013 Surgical History EGD/Colonoscopy 07/27/18 Hospitalization History surgeries Hospitalization History [facility] for abdominal/chest pain 07/2015 Hospitalization History Inpt for lumbar surgery x's 10 days 02/2015 Hospitalization History Pt was in [facility] home for rehab from surgery, Dx with UTI -03/2016
--- OUTSIDE RECORDS SUMMARY | 2019-09-07 21:29 | XMS REPORT ---
Author Author Paola CASTELLANO [facility] Address [address] [place] [address] Care Team Providers Care Care Partner Name Role Phone GRAY ANTHONY Unavailable PROBLEMS Type Condition ICD9-CM Code LLR83-ZG Code Onset Dates Condition S tatus SNOMED Code Problem Hyperlipemia, mixed E78.2 Active 580437675 Problem Essential hypertension I10 Active 35945782 Problem Esophageal reflux K21.9 Active 24 9066104 Problem COPD (chronic obstructive pulmonary disease) J44.9 Active 86952515 Problem Rhinitis J31.0 Active 67063791 Problem Neuropathy G62.9 Active 625526060 Problem Acquired hypothyroidism E03.9 Active 805459344 Problem Non-seasonal allergic rhinitis due to pollen J30.1 Active 60680961 Problem Chronic fatigue R53.82 Active 5270 2003 ALLERGIES No Information ENCOUNTERS Encounter Location Date Diagnosis [facility] [address] [facility] [id number] [address] [address] Oct, [facility] [address] [facility] [id number] [place] [id number] Aug, [address] [id number] [place] [id number] Aug, [facility] [address] [id number] [id number] Jul, Urinary tract infection, site not specif ied N39.0 and Dysuria R30.[address] [id number] [place] [id number] Jun, Acquired hypothyroidism E03.9 ; Hyperlip emia, mixed E78.2 ; Essential hypertension I10 ; Esophageal reflux K21.9 ; COPD (chronic obstructive pulmonary disease) J44.9 ; Ingrown toenail L60.0 ; Foot pain, bilateral M79.671 ; Noncompliance by refusing intervention or support Z53.29 ; Colon cancer screening Z12.11 and Rhinitis J31.0 [facility] [address] [facility] [id number] [place] [id number] Jun, Hyperlipemia, mixed E78.2 [facility] [address] [facility] [id number] [place] [id number] Jun, Hypothyroidism, unspecified type E03.9 ; Hyperlipemia, mixed E78.2 ; Essential hypertension I10 and Encounter for immunization Z23 [facility] [address] [facility] [id number] [place] [id number] Jun, [facility] [address] [facility] [id number] [place] [id number] May, Essential hypertension I10 [facility] [address] [id number] [place] [id number] May, Hypothyroidism, unspecified type E03.9 ; Essential hypertension I10 and Hyperlipemia, mixed E78.2 [facility] [id number] [place] [address], [place] [id number] Apr, [facility] [address] [facility] [id number] [place] [id number] Apr, Abnormal mammogram of left breast R92.8 [facility] [address] [id number] [place] [id number] Mar, Abnormal mammogram of left breast R92.8 [facility] [id number] [place] [address], [place] [id number] Mar, [facility] [address] [id number] [place] [id number] Mar, [facility] [address] [facility] [id number] [address] [place] [address] Feb, Sore throat and laryngitis J 06.0 and Strep throat J02.0 [facility] [address] [facility] [id number] [address] [place] [address] Dec, [facility] [address] [id number] [place] [id number] Dec, [facility] [address] [id number] [place] [id number] Dec, Dilated pore of Mk of back L70.8 ; Se borrheic keratoses L82.1 and Non- seasonal allergic rhinitis due to pollen J30.1 [facility] [address] [id number] [place] [id number] Dec, [address] [id number] [id number] Oct, [facility] [address] [id number] [place] [id number] Oct, Screening breast examination Z12.31 and History of abnormal mammogram Z87.898 [facility] [address] [id number] [place] [id number] Sep, [facility] [address] [id number] [place] [id number] Sep, [facility] [address] [id number] [place] [id number] Sep, [facility] [address] [id number] [place] [id number] Jun, Obesity (BMI 30.0-34.9) E66.9 ; Chronic fatigue R53.82 ; Neuropathy G62.9 ; Essential hypertension I10 and Encounter for immunization Z23 [facility] [address] [id number] [place] [id number] Jun, Neuropathy G62.9 and Essential hypertens ion I10 [facility] [address] [id number] [place] [id number] Apr, [facility] [address] [id number] [place] [id number] Mar, Neuropathy G62.9 ; Hypothyroidism, unspe cified type E03.9 ; Essential hypertension I10 ; Muscle spasm M62.838 and Hyperlipemia, mixed E78.2 [facility] [address] [id number] [place] [id number] Feb, [facility] [address] [id number] [place] [id number] January, [facility] [address] [id number] [place] [id number] Dec, [facility] [address] [id number] [place] [id number] Dec, Hypothyroidism, unspecified type E03.9 [facility] [address] [id number] [place] [id number] Nov, [facility] [address] [id number] [place] [id number] Nov, Neuropathy G62.9 ; Sinus congestion R09. 81 ; Hyperlipemia, mixed E78.2 and Hypothyroidism, unspecified type E03.9 [facility] [address] [facility] [id number] [place] [id number] Nov, Neuropathy G62.9 [facility] [address] [id number] [place] [id number] Nov, Sinus congestion R09.81 and Acquired hyp othyroidism E03.9 [facility] [address] [id number] [place] [id number] Nov, Acquired hypothyroidism E03.9 [facility] [address] [id number] [place] [id number] Oct, [facility] [address] [id number] [place] [id number] Oct, Sinus congestion R09.81 and Neuropathy G 62.9 [facility] [address] [facility] [id number] [place] [id number] Oct, Fever, unspecified R50.9 ; Sinus congest ion R09.81 and Neuropathy G62.9 [facility] [place] [address] [id number] [place] [address] Oct, [facility] [address] [facility] [id number] [place] [id number] Oct, Abnormal mammogram of left breast R92.8 [facility] [address] [id number] [place] [id number] Sep, Abnormal mammogram R92.8 [facility] [address] [id number] [place] [id number] Sep, Acquired hypothyroidism E03.9 [facility] [address], [place] [id number] Sep, Hypothyroidism, unspecified type E03.9 ; Hyperlipemia, mixed E78.2 and Essential hypertension I10 [facility] [id number] [place] [address], [place] [id number] Sep, Hypothyroidism, unspecified type E03.9 a nd Hyperlipemia, mixed E78.2 [facility] [id number] [place] [address], [place] [id number] Aug, Acute maxillary sinusitis, recurrence no t specified J01.00 [facility] [id number] [place] [address], [place] [id number] Jul, Hyperlipemia, mixed E78.2 [facility] [id number] [place] [address], [place] [id number] Jul, Acquired hypothyroidism E03.9 ; Hyperlip emia, mixed E78.2 ; Multiple joint pain M25.50 ; Esophageal reflux K21.9 ; Otitis media with effusion, right H65.91 and Essential hypertension I10 [facility] [id number] [place] [address], [place] [id number] Jul, Gastroesophageal reflux disease, esophag itis presence not specified K21.9 [facility] [id number] [place] [address], [place] [id number] May, [facility] [id number] [place] [address], [place] [id number] Apr, Cystitis N30.90 and Well woman exam Z01. 419 [facility] [id number] [place] [address], [place] [id number] Apr, Hematuria R31.9 and Dysuria R30.0 [facility] [id number] [place] [address], [place] [id number] Apr, [facility] [id number] [place] [address], [place] [id number] Apr, Urinary tract infection, site not specif ied N39.0 and Hematuria, unspecified R31.9 [facility] [id number] [place] [id number] Dec, [facility] [id number] [place] [address], [place] [id number] Nov, [facility] [id number] [place] [address], [place] [id number] Oct, Hyperlipemia, mixed E78.2 [facility] [id number] [place] [address], [place] [id number] Oct, Gastroesophageal reflux disease, esophag itis presence not specified K21.9 ; Acute serous otitis media of left ear, recurrence not specified H65.02 ; Hyperlipemia, mixed E78.2 and Hypothyroidism, unspecified type E03.9 [facility] [id number] [place] [address], [place] [id number] Sep, [facility] [address], [place] [id number] Sep, Actinic keratoses L57.0 and Stuffy and r unny nose J34.89 [facility] [id number] [place] [address], [place] [id number] Aug, [place] [address] [address], [place] [id number] Aug, Acute cystitis with hematuria N30.01 [id number] [place] [address], [place] [id number] Jul, Reflux esophagitis K21.0 ; Acquired defo rmities of toe, 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 ; Multiple joint pain M25.50 and Sinus congestion R09.81 [place] [id number] [place] [address], [place] [id number] Jul, [address], [place] [id number] Jun, Acute cystitis without hematuria N30.00 ; Dysuria R30.0 ; Flank pain R10.9 and High risk medication use Z79.899 [facility] [id number] [place] [address], [place] [id number] Jun, Urinary tract infection N39.[address] [facility] [address] [id number] [place] [id number] Jun, [facility] [place] [address] [id number] [place] [id number] Jun, Urinary tract infection, site not specif ied 599.0 and Encounter for immunization [facility]23 [facility] [address] [facility] [id number] [id number] Jun, [facility] [place] [address] [id number] [place] [id number] May, [facility] [place] [address] [id number] [place] [id number] Dec, [facility] [address] [facility] [id number] [address] [place] [address] Dec, [facility] [address] [facility] [id number] [address] [place] [address] Dec, [facility] [place] [address] [facility] [id number] [place] [id number] Oct, [facility] [address] [facility] [id number] [address] [place] [address] Oct, [facility] [place] [address] [facility] [id number] [place] [id number] Sep, [facility] [address] [facility] [id number] [address] [place] [address] Sep, [facility] [place] [address] [id number] [place] [id number] Sep, [facility] [address] [facility] [id number] [address] [place] [address] Sep, [facility] [place] [address] [id number] [place] [id number] Aug, [facility] [place] [address] [id number] [place] [id number] Aug, [facility] [address] [id number] [facility] [address] Aug, [facility] [address] [id number] [facility] [address] Aug, [facility] [place] [address] [id number] [place] [id number] Aug, [facility] [address] [id number] [facility] [address] Aug, [facility] [place] [address] [id number] [place] [id number] Jul, [facility] [address] [id number] [address] [place] [address], [place] [address] Jul, [facility] [place] [address] [id number] [place] [id number] Jul, [facility] [address] [id number] [address] [place] [address], [place] [address] Jul, [facility] [place] [address] [id number] [place] [id number] Jul, [facility] [address] [id number] [address] [place] [address], [place] [address] Jul, [facility] [place] [address] [id number] [place] [id number] Jul, [facility] [address] [id number] [address] [place] [address] Jul, [facility] [address] [id number] [address] [place] [address], [place] [address] Jun, [facility] [address] [id number] [address] [place] [address] Jun, [facility] [place] [address] [id number] [place] [id number] Jun, [facility] [address] [id number] [address] [place] [address] 14 Jun, 2014 [facility] [address] [id number] [address] [place] [address], [place] [address] Jun, [facility] [place] [address] [id number] [place] [id number] Jun, [facility] [place] [address] [id number] [place] [id number] Jun, [facility] [address] [id number] [facility] [address] Jun, [facility] [place] [address] [id number] [place] [id number] Jun, [facility] [address] [id number] [facility] [address] Jun, [facility] [place] [address] [id number] [place] [id number] May, [facility] [address] [facility] [id number] [address] [place] [address], [place] [address] May, [facility] [place] [address] [id number] [place] [id number] May, [facility] [address] [id number] [address] [place] [address], [place] [address] May, [facility] [address] [id number] [address] [place] [address], [place] [address] Apr, [facility] [address] [id number] [address] [place] [address], [place] [address] Apr, [facility] [place] [address] [id number] [place] [id number] Apr, [facility] [address] [id number] [address] [place] [address], [place] [address] Apr, [facility] [place] [address] [id number] [place] [id number] Mar, [facility] [address] [id number] [facility] [address] Mar, [facility] [place] [address] [id number] [place] [id number] Feb, [facility] [address] [id number] [address] [place] [address], [place] [address] Feb, [facility] [place] [address] [id number] [place] [id number] January, [facility] [address] [id number] [address] [place] [address], [place] [address] January, [facility] [place] [address] [id number] [place] [id number] January, [facility] [address] [id number] [address] [place] [address], [place] [address] January, [facility] [place] [address] [id number] [place] [id number] Dec, [facility] [address] [id number] [address] [place] [address], [place] [address] Dec, [facility] [place] [address] [id number] [place] [id number] Dec, [facility] [address] [id number] [address] [place] [address], [place] [address] Dec, [facility] [place] [address] [id number] [place] [id number] Nov, [facility] [address] [facility] [id number] [address] [place] [address] Nov, [facility] [address] [id number] [address] [place] [address] Oct, [facility] [address] [id number] [address] [place] [address], [place] [address] Oct, [facility] [address] [id number] [address] [place] [address], [place] [address] Sep, [facility] [place] [address] [id number] [place] [id number] Sep, [facility] [place] [address] [id number] [place] [id number] Sep, [facility] [address] [id number] [address] [place] [address], [place] [address] Sep, [facility] [place] [address] [id number] [place] [id number] Aug, [facility] [address] [id number] [address] [place] [address], [place] [address] Aug, [facility] [place] [address] [id number] [place] [id number] Jul, [facility] [address] [id number] [address] [place] [address], [place] [address] Jul, [facility] [place] [address] [id number] [place] [id number] Jul, [facility] [address] [id number] [address] [place] [address], [place] [address] Jul, [facility] [place] [address] [id number] [place] [id number] Jul, [facility] [address] [id number] [address] [place] [address], [place] [address] Jul, [facility] [place] [address] [id number] [place] [id number] Jul, [facility] [address] [id number] [address] [place] [address], [place] [address] Jul, [facility] [address] [facility] [id number] [address] [place] [address], [place] [address] Jul, [facility] [place] [address] [id number] [place] [id number] Jun, [facility] [address] [id number] [address] [place] [address], [place] [address] Jun, [facility] [place] [address] [id number] [place] [id number] Jun, [facility] [place] [address] [id number] [place] [id number] Jun, [facility] [address] [id number] [address] [place] [address], [place] [address] Jun, [facility] [address] [id number] [address] [place] [address] Jun, [facility] [place] [address] [id number] [place] [id number] Jun, [facility] [address] [facility] [id number] [address] [place] [address] Jun, [facility] [address] [facility] [id number] [address] [place] [address] Jun, [facility] [place] [address] [id number] [place] [id number] May, [facility] [place] [address] [id number] [place] [id number] May, [facility] [place] [address] [id number] [place] [id number] May, [facility] [place] [address] [id number] [place] [id number] May, [facility] [place] [address] [id number] [place] [id number] Apr, [facility] [place] [address] [id number] [place] [id number] Feb, [facility] [place] [address] [id number] [place] [id number] Feb, [facility] [address] [facility] [id number] [address] [place] [address] Feb, [facility] [place] [address] [id number] [place] [id number] January, [facility] [address] [facility] [id number] [address] [place] [address], [place] [address] January, [facility] [place] [address] [id number] [place] [id number] January, [facility] [place] [address] [id number] [place] [id number] January, [facility] [place] [address] [id number] [place] [id number] January, [facility] [address] [facility] [id number] [address] [place] [id number] Nov, [facility] [address] [facility] [id number] [address] [place] [id number] Nov, [facility] [place] [address] [id number] [place] [id number] Oct, [facility] [place] [address] [id number] [place] [id number] Oct, [facility] [place] [address] [id number] [place] [id number] Oct, [facility] [place] [address] [id number] [place] [id number] Oct, [facility] [address] [facility] [id number] [address] [place] [id number] Oct, [facility] [address] [facility] [id number] [address] [place] [id number] Oct, [facility] [place] [address] [id number] [place] [id number] Sep, [facility] [address] [facility] [id number] [address] [place] [phone] Sep, [facility] [place] [address] [id number] [place] [id number] Sep, [facility] [place] [address] [id number] [place] [id number] Sep, [facility] [place] [address] [id number] [place] [id number] Jun, [facility] [address] [id number] [address] [place] [phone] Jun, [facility] [place] [address] [id number] [place] [id number] May, [facility] [place] [address] [id number] [place] [id number] May, [facility] [place] [address] [id number] [place] [id number] Apr, [facility] [place] [address] [id number] [place] [id number] Apr, [facility] [place] [address] [id number] [place] [id number] Apr, [facility] [place] [address] [id number] [place] [id number] Mar, [facility] [address] [facility] [id number] [address] [place] [phone] Feb, [facility] [address] [facility] [id number] [place] [id number] Nov, [facility] [address] [facility] [id number] [place] [id number] Nov, [facility] [address] [facility] [id number] [address] [place] [phone] Nov, [facility] [address] [place] [id number] [address] [place] [phone] Nov, [facility] [address] [facility] [id number] [address] [place] [phone] Nov, [facility] [address] [facility] [id number] [place] [id number] Nov, [facility] [address] [facility] [id number] [place] [id number] Sep, [facility] [address] [id number] [place] [id number] Sep, IMMUNIZATIONS No Known Immunizations SOCIAL HISTORY Never Assessed REASON FOR VISIT update medical hy PLAN OF CARE VITAL SIGNS MEDICATIONS Unknown [...] [id number] 03/06/2016 Surgical History Hemmroidectomy-Dr. YANG in [place] 2013 Surgical History EGD/Colonoscopy 07/27/18 Hospitalization History surgeries Hospitalization History [facility] for abdominal/chest pain 07/2015 Hospitalization History Inpt for lumbar surgery x's 10 days 02/2015 Hospitalization History Pt was in [facility] home for rehab from surgery, Dx with UTI
--- OUTSIDE RECORDS SUMMARY | 2019-09-07 21:29 | XMS REPORT ---
Author Author Poala CASTELLANO [facility] Address [address] [place] [address] Care Team Providers Care Oxygen Equipment Preparer Name Role Phone GRAY ANTHONY Unavailable PROBLEMS Type Condition ICD9-CM Code VVQ66-JX Code Onset Dates Condition S tatus SNOMED Code Problem Hyperlipemia, mixed E78.2 Active 273282572 Problem Essential hypertension I10 Active 82000506 Problem Esophageal reflux K21.9 Active 24 8816697 Problem COPD (chronic obstructive pulmonary disease) J44.9 Active 42053193 Problem Rhinitis J31.0 Active 43816326 Problem Neuropathy G62.9 Active 172796330 Problem Acquired hypothyroidism E03.9 Active 814974006 Problem Non-seasonal allergic rhinitis due to pollen J30.1 Active 36909666 Problem Chronic fatigue R53.82 Active 5270 2003 ALLERGIES No Information ENCOUNTERS Encounter Location Date Diagnosis [facility] [address] [facility] [id number] 100[address] [place] [address] Oct, [facility] [address] [facility] [id number] [place] [id number] Aug, [place] [address] [facility] [id number] [id number] Jul, Urinary tract infection, site not specif ied N39.0 and Dysuria R30.0 [facility] [address] [facility] [id number] [place] [id number] Jun, Acquired hypothyroidism E03.9 ; Hyperlip emia, mixed E78.2 ; Essential hypertension I10 ; Esophageal reflux K21.9 ; COPD (chronic obstructive pulmonary disease) J44.9 ; Ingrown toenail L60.0 ; Foot pain, bilateral M79.671 ; Noncompliance by refusing intervention or support Z53.29 ; Colon cancer screening Z12.11 and Rhinitis J31.0 [facility] [address] [facility] [id number] [place] [id number] Jun, Hyperlipemia, mixed E78.2 [facility] [place] [address] [id number] [place] [id number] Jun, Hypothyroidism, unspecified type E03.9 ; Hyperlipemia, mixed E78.2 ; Essential hypertension I10 and Encounter for immunization Z23 [facility] [place] [address] [id number] [place] [id number] Jun, [facility] [place] [address] [id number] [place] [id number] May, Essential hypertension I10 [facility] [address] [id number] [place] [id number] May, Hypothyroidism, unspecified type E03.9 ; Essential hypertension I10 and Hyperlipemia, mixed E78.2 [facility] [address] [id number] [place] [id number] Apr, [facility] [address] [id number] [place] [id number] Apr, Abnormal mammogram of left breast R92.8 [facility] [address] [place] [id number] [place] [id number] Mar, Abnormal mammogram of left breast R92.8 [facility] [facility] [address] [id number] [place] [id number] Mar, [facility] [place] [address] [id number] [place] [id number] Mar, [facility] [address] [place] [id number] [address] [place] [address] Feb, Sore throat and laryngitis J 06.0 and Strep throat J02.0 [facility] [address] [facility] [id number] [address] [place] [address] Dec, [facility] [place] [address] [facility] [id number] [place] [id number] Dec, [facility] [place] [address] [facility] [id number] [place] [id number] 13 Apr, 2018 Dilated pore of Mk of back L70.8 ; Se borrheic keratoses L82.1 and Non- seasonal allergic rhinitis due to pollen J30.1 [facility] [address] [id number] [place] [id number] Dec, [facility] [facility] [id number] [id number] Oct, [facility] [address] [id number] [place] [id number] Oct, Screening breast examination Z12.31 and History of abnormal mammogram Z87.898 [facility] [address] [id number] [place] [id number] Sep, [facility] [address] [id number] [place] [id number] Sep, [facility] [address] [id number] [place] [id number] Sep, [facility] [address] [place] [id number] [place] [address], [place] [id number] Jun, Obesity (BMI 30.0-34.9) E66.9 ; Chronic fatigue R53.82 ; Neuropathy G62.9 ; Essential hypertension I10 and Encounter for immunization Z23 [facility] [address] [id number] [place] [id number] Jun, Neuropathy G62.9 and Essential hypertens ion I10 [facility] [address] [id number] [place] [id number] Apr, [facility] [address] [place] [id number] [place] [address], [place] [id number] Mar, Neuropathy G62.9 ; Hypothyroidism, unspe cified type E03.9 ; Essential hypertension I10 ; Muscle spasm M62.838 and Hyperlipemia, mixed E78.2 [facility] [address] [id number] [place] [id number] Feb, [facility] [address] [id number] [place] [id number] January, [facility] [address] [place] [address] [id number] [place] [address], [place] [id number] Dec, [facility] [address] [id number] [place] [id number] Dec, Hypothyroidism, unspecified type E03.9 [facility] [address] [id number] [place] [id number] Nov, [facility] [address] [id number] [place] [id number] Nov, Neuropathy G62.9 ; Sinus congestion R09. 81 ; Hyperlipemia, mixed E78.2 and Hypothyroidism, unspecified type E03.9 [facility] [address] [id number] [place] [id number] Nov, Neuropathy G62.9 [facility] [address] [id number] [place] [id number] Nov, Sinus congestion R09.81 and Acquired hyp othyroidism E03.9 [facility] [address] [id number] [place] [id number] Nov, Acquired hypothyroidism E03.9 [facility] [place] [facility] [place] [address] [id number] [place] [id number] Oct, [facility] [address] [id number] [place] [id number] Oct, Sinus congestion R09.81 and Neuropathy G 62.9 [facility] [address] [id number] [place] [id number] Oct, Fever, unspecified R50.9 ; Sinus congest ion R09.81 and Neuropathy G62.9 [facility] [place] [address] [id number] [place] [address] Oct, [facility] [place] [facility] [place] [address] [id number] [place] [id number] Oct, Abnormal mammogram of left breast R92.8 [facility] [address] [id number] [place] [id number] Sep, Abnormal mammogram R92.8 [facility] [place] [facility] [place] [address] [id number] [place] [id number] Sep, Acquired hypothyroidism E03.9 [facility] [address] [id number] [place] [id number] Sep, Hypothyroidism, unspecified type E03.9 ; Hyperlipemia, mixed E78.2 and Essential hypertension I10 [facility] [address] [id number] [place] [id number] Sep, Hypothyroidism, unspecified type E03.9 a nd Hyperlipemia, mixed E78.2 [facility] [address] [id number] [place] [id number] Aug, Acute maxillary sinusitis, recurrence no t specified J01.00 [facility] [address] [id number] [place] [id number] Jul, Hyperlipemia, mixed E78.2 [facility] [address] [id number] [place] [id number] Jul, Acquired hypothyroidism E03.9 ; Hyperlip emia, mixed E78.2 ; Multiple joint pain M25.50 ; Esophageal reflux K21.9 ; Otitis media with effusion, right H65.91 and Essential hypertension I10 [facility] [address] [id number] [place] [id number] Jul, Gastroesophageal reflux disease, esophag itis presence not specified K21.9 [facility] [address] [id number] [place] [id number] May, [facility] [address] [id number] [place] [id number] Apr, Cystitis N30.90 and Well woman exam Z01. 419 [facility] [address] [id number] [place] [id number] Apr, Hematuria R31.9 and Dysuria R30.0 [facility] [address] [id number] [place] [id number] Apr, [facility] [address] [id number] [place] [id number] Apr, Urinary tract infection, site not specif ied N39.0 and Hematuria, unspecified R31.9 [facility] [address] [facility] [id number] [place] [id number] Dec, [facility] [address] [id number] [place] [id number] Nov, [facility] [address] [id number] [place] [id number] Oct, Hyperlipemia, mixed E78.2 [facility] [address] [id number] [place] [id number] Oct, Gastroesophageal reflux disease, esophag itis presence not specified K21.9 ; Acute serous otitis media of left ear, recurrence not specified H65.02 ; Hyperlipemia, mixed E78.2 and Hypothyroidism, unspecified type E03.9 [facility] [address] [place] [address] [id number] [place] [address], [place] [id number] Sep, [facility] [address] [place] [address] [id number] [place] [id number] Sep, Actinic keratoses L57.0 and Stuffy and r unny nose J34.89 [facility] [address] [address] [id number] [place] [address], [place] [id number] Aug, [facility] [address] [address] [id number] [place] [address], [place] [id number] Aug, Acute cystitis with hematuria N30.01 [facility] [address] [place] [address] [id number] [place] [id number] Jul, Reflux esophagitis K21.0 ; Acquired defo rmities of toe, 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 ; Multiple joint pain M25.50 and Sinus congestion R09.81 [facility] [address] [facility] [id number] [place] [id number] Jul, [facility] [address] [facility] [id number] [place] [id number] Jun, Acute cystitis without hematuria N30.00 ; Dysuria R30.0 ; Flank pain R10.9 and High risk medication use Z79.899 [facility] [address] [facility] [id number] [place] [id number] Jun, Urinary tract infection N39.[address] [facility] [address] [id number] [place] [id number] Jun, [facility] [place] [address] [facility] [id number] [place] [id number] Jun, Urinary tract infection, site not specif ied 599.0 and Encounter for immunization Z23 [facility] [place] [address] [facility] [id number] [place] [id number] Jun, [facility] [place] [address] [id number] [place] [id number] May, [facility] [place] [address] [id number] [place] [id number] Dec, [facility] [address] [facility] [id number] [address] [place] [address] Dec, [facility] [address] [facility] [id number] [address] [place] [address] Dec, [facility] [place] [address] [facility] [id number] [place] [id number] Oct, [facility] [address] [facility] [id number] [address] [place] [address] Oct, [facility] [place] [address] [facility] [id number] [place] [id number] Sep, [facility] [address] [facility] [id number] [address] [place] [address] Sep, [facility] [place] [address] [id number] [place] [id number] Sep, [facility] [address] [facility] [id number] [address] [place] [address] Sep, [facility] [place] [address] [facility] [id number] [place] [id number] Aug, [facility] [place] [address] [facility] [id number] [place] [id number] Aug, [facility] [address] [facility] [id number] [address] [place] [address] Aug, [facility] [address] [id number] [address] [place] [address], [place] [address] Aug, [facility] [place] [address] [id number] [place] [id number] Aug, [facility] [address] [id number] [address] [place] [address], [place] [address] Aug, [facility] [place] [address] [id number] [place] [id number] Jul, [facility] [address] [id number] [address] [place] [address], [place] [address] Jul, [facility] [place] [address] [id number] [place] [id number] Jul, [facility] [address] [id number] [address] [place] [address], [place] [address] Jul, [facility] [place] [address] [id number] [place] [id number] Jul, [facility] [address] [id number] [address] [place] [address], [place] [address] Jul, [facility] [place] [address] [id number] [place] [id number] Jul, [facility] [address] [id number] [address] [place] [address], [place] [address] Jul, [facility] [address] [id number] [address] [place] [address], [place] [address] Jun, [facility] [address] [id number] [address] [place] [address], [place] [address] Jun, [facility] [place] [address] [id number] [place] [id number] Jun, [facility] [address] [id number] [address] [place] [address], [place] [address] Jun, [facility] [address] [id number] [address] [place] [address], [place] [address] Jun, [facility] [place] [address] [id number] [place] [id number] Jun, [facility] [place] [address] [id number] [place] [id number] Jun, [facility] [address] [id number] [facility] [place] [address] Jun, [facility] [place] [address] [id number] [place] [id number] Jun, [facility] [address] [id number] [facility] [place] [address] Jun, [facility] [place] [address] [id number] [place] [id number] May, [facility] [address] [id number] [address] [place] [address], [place] [address] May, [facility] [place] [address] [id number] [place] [id number] May, [facility] [address] [id number] [address] [place] [address], [place] [address] May, [facility] [address] [id number] [address] [place] [address], [place] [address] Apr, [facility] [address] [id number] [address] [place] [address], [place] [address] Apr, [facility] [place] [address] [id number] [place] [id number] Apr, [facility] [address] [id number] [address] [place] [address], [place] [address] Apr, [facility] [place] [address] [id number] [place] [id number] Mar, [facility] [address] [id number] [address] [place] [address], [place] [address] Mar, [facility] [place] [address] [id number] [place] [id number] Feb, [facility] [address] [id number] [address] [place] [address], [place] [address] Feb, [facility] [place] [address] [id number] [place] [id number] January, [facility] [address] [id number] [address] [place] [address], [place] [address] January, [facility] [place] [address] [id number] [place] [id number] January, [facility] [address] [id number] [address] [place] [address], [place] [address] January, [facility] [place] [address] [id number] [place] [id number] Dec, [facility] [address] [id number] [address] [place] [address], [place] [address] Dec, [facility] [place] [address] [id number] [place] [id number] Dec, [facility] [address] [id number] [address] [place] [address] Dec, [facility] [place] [address] [id number] [place] [id number] Nov, [facility] [address] [id number] [address] [place] [address] Nov, [facility] [address] [id number] [address] [place] [address], [place] [address] Oct, [facility] [address] [id number] [address] [place] [address], [place] [address] Oct, [facility] [address] [id number] [address] [place] [address], [place] [address] Sep, [facility] [place] [address] [id number] [place] [id number] Sep, [facility] [place] [address] [id number] [place] [id number] Sep, [facility] [address] [id number] [address] [place] [address], [place] [address] Sep, [facility] [place] [address] [id number] [place] [id number] Aug, [facility] [address] [id number] [facility] [place] [address] Aug, [facility] [place] [address] [id number] [place] [id number] Jul, [facility] [address] [id number] [facility] [place] [address] Jul, [facility] [place] [address] [id number] [place] [id number] Jul, [facility] [address] [id number] [address] [place] [address], [place] [address] Jul, [facility] [place] [address] [id number] [place] [id number] Jul, [facility] [address] [id number] [address] [place] [address], [place] [address] Jul, [facility] [place] [address] [id number] [place] [id number] Jul, [facility] [address] [id number] [address] [place] [address], [place] [address] Jul, [facility] [address] [id number] [address] [place] [address], [place] [address] Jul, [facility] [place] [address] [id number] [place] [id number] Jun, [facility] [address] [id number] [address] [place] [address], [place] [address] Jun, [facility] [place] [address] [id number] [place] [id number] Jun, [facility] [place] [address] [id number] [place] [id number] Jun, [facility] [address] [id number] [address] [place] [address], [place] [address] Jun, [facility] [address] [id number] [address] [place] [address], [place] [address] Jun, [facility] [place] [address] [id number] [place] [id number] Jun, [facility] [address] [facility] [id number] [address] [place] [address] Jun, [facility] [address] [facility] [id number] [address] [place] [address] Jun, [facility] [place] [address] [id number] [place] [id number] May, [facility] [place] [address] [id number] [place] [id number] May, [facility] [place] [address] [id number] [place] [id number] May, [facility] [place] [address] [id number] [place] [id number] May, [facility] [place] [address] [id number] [place] [id number] Apr, [facility] [place] [address] [id number] [place] [id number] Feb, [facility] [place] [address] [id number] [place] [id number] Feb, [facility] [address] [facility] [id number] [address] [place] [address] Feb, [facility] [place] [address] [id number] [place] [id number] January, [facility] [address] [facility] [id number] [address] [place] [id number] January, [facility] [place] [address] [id number] [place] [id number] January, [facility] [place] [address] [id number] [place] [id number] January, [facility] [place] [address] [id number] [place] [id number] January, [facility] [address] [facility] [id number] [address] [place] [id number] Nov, [facility] [address] [facility] [id number] [address] [address] Nov, [facility] [place] [address] [id number] [place] [id number] Oct, [facility] [place] [address] [id number] [place] [id number] Oct, [facility] [place] [address] [id number] [place] [id number] Oct, [facility] [place] [address] [id number] [place] [id number] Oct, [facility] [address] [facility] [id number] [address] [place] [id number] Oct, [facility] [address] [facility] [id number] [address] [place] [id number] Oct, [facility] [place] [address] [id number] [place] [id number] Sep, [facility] [address] [facility] [id number] [address] [place] [phone] Sep, [facility] [place] [address] [id number] [place] [id number] Sep, [facility] [place] [address] [id number] [place] [id number] Sep, [facility] [place] [address] [id number] [place] [id number] Jun, [facility] [address] [facility] [id number] [address] [place] [id number] Jun, [facility] [place] [address] [id number] [place] [id number] May, [facility] [place] [address] [id number] [place] [id number] May, [facility] [place] [address] [id number] [place] [id number] Apr, [facility] [place] [address] [id number] [place] [id number] Apr, [facility] [place] [address] [id number] [place] [id number] Apr, [facility] [place] [address] [facility] [id number] [place] [id number] Mar, [facility] [address] [facility] [id number] [address] [place] [id number] Feb, [facility] [address] [facility] [id number] [place] [id number] Nov, [facility] [address] [facility] [id number] [place] [id number] Nov, [facility] [address] [facility] [id number] [address] [place] [id number] Nov, [facility] [address] [facility] [id number] [address] [place] [id number] Nov, [facility] [address] [facility] [id number] [address] [place] [id number] Nov, [facility] [place] [address] [id number] [place] [id number] Nov, [facility] [place] [address] [facility] [id number] [place] [id number] Sep, [facility] [place] [address] [id number] [place] [id number] Sep, IMMUNIZATIONS No Known Immunizations SOCIAL HISTORY Never Assessed REASON FOR VISIT med refill PLAN OF CARE VITAL SIGNS MEDICATIONS Medication Instructions Dosage Frequency Start Date End Date Duration S tatus Levothyroxine Sodium 75MCG Orally Once a day [...] L4-S1 03/06/2016 Surgical History Hemmroidectomy-Dr. Y[place] in [place] 2013 Hospitalization History surgeries Hospitalization History [facility] for abdominal/chest pain 07/2015 Hospitalization History Inpt for lumbar surgery x's 10 days 02/2015 Hospitalization History Pt was in [facility] home for rehab from surgery, Dx with UTI
--- OUTSIDE RECORDS SUMMARY | 2019-09-07 21:32 | XMS REPORT | Continuity of Care Document ---
Author Organization Unknown Address Unknown Phone Unavailable Allergies Active Description Code Type Severity Reaction Onset Reported/Identified Relationship to Patient Clinical Status Yes Penicillins Drug Allergy 09/30/2011 Yes Penicillins Drug Allergy N/A N/A 09/30/2011 Yes celecoxib [id number] Drug Allergy Unknown N/A 07/22/2015 Yes Sulfa (Sulfonamide Antibiotics) [id number] Drug Allergy Unknown N/A 015 Yes Penicillins [id number] Drug Aller gy Severe N/A 07/20/2018 Yes celecoxib [id number] Drug Allergy Severe FACE SWELLING 08/21/2019 Medications There is no data. Problems Date Dx Coded Attending Type Code Diagnosis Diagnosed By 09/23/2011 SUGAR DEVRIES MD 465. 9 UPPER RESPIRATORY INFECTION 09/23/2011 SUGAR DEVRIES MD 49Jensen COPD 09/23/2011 SUGAR DEVRIES MD 465. 9 UPPER RESPIRATORY INFECTION 09/23/2011 SUGAR DEVRIES MD 49Jensen COPD 09/23/2011 SUGAR DEVRIES MD 465. 9 UPPER RESPIRATORY INFECTION 09/23/2011 SUGAR DEVRIES MD 49Jensen COPD 09/23/2011 465.9 UPPE R RESPIRATORY INFECTION 09/23/2011 496 COPD 09/23/2011 465.9 UPPE R RESPIRATORY INFECTION 09/23/2011 496 COPD 09/23/2011 465.9 UPPE R RESPIRATORY INFECTION 09/23/2011 496 COPD 09/23/2011 465.9 UPPE R RESPIRATORY INFECTION 09/23/2011 496 COPD 09/23/2011 465.9 UPPE R RESPIRATORY INFECTION 09/23/2011 496 COPD 09/23/2011 JACLYN CRUZ DO 465.9 UPPER RESPIRATORY INFECTION 09/23/2011 JACLYN CRUZ DO 496 COPD 09/23/2011 JACLYN CRUZ DO 465.9 UPPER RESPIRATORY INFECTION 09/23/2011 JACLYN CRUZ DO 496 COPD 09/23/2011 JACLYN CRUZ DO 465.9 UPPER RESPIRATORY INFECTION 09/23/2011 JACLYN CRUZ DO 496 COPD 09/23/2011 CRUZ DO, JACLYN K 465.9 UPPER RESPIRATORY INFECTION 09/23/2011 CRUZ DO, JACLYN K 496 COPD 09/23/2011 RCUZ DO, JACLYN K 465.9 UPPER RESPIRATORY INFECTION 09/23/2011 CRUZ DO, JACLYN K 496 COPD 09/23/2011 CRUZ DO, JACLYN K 465.9 UPPER RESPIRATORY INFECTION 09/23/2011 CRUZ DO, JACLYN K 496 COPD 09/23/2011 HELLWIG ONSHORE DIVER, YU E 465.9 UPPER RESPIRATORY INFECTION 09/23/2011 HELLWIG ONSHORE DIVER, YU E 496 COPD 09/23/2011 CRUZ DO, JACLYN K 465.9 UPPER RESPIRATORY INFECTION 09/23/2011 CRUZ DO, JACLYN K 496 COPD 09/23/2011 HELLWIG ONSHORE DIVER, YU E 465.9 UPPER RESPIRATORY INFECTION 09/23/2011 HELLWIG ONSHORE DIVER, YU E 496 COPD 09/23/2011 HELLWIG ONSHORE DIVER, YU E 465.9 UPPER RESPIRATORY INFECTION 09/23/2011 HELLWIG ONSHORE DIVER, YU E 496 COPD 09/23/2011 HELLWIG ONSHORE DIVER, YU E 465.9 UPPER RESPIRATORY INFECTION 09/23/2011 HELLWIG ONSHORE DIVER, YU E 496 COPD 09/23/2011 HELLWIG ONSHORE DIVER, YU E 465.9 UPPER RESPIRATORY INFECTION 09/23/2011 HELLWIG ONSHORE DIVER, YU E 496 COPD 09/23/2011 CRUZ DO, JACLYN K 465.9 UPPER RESPIRATORY INFECTION 09/23/2011 CRUZ DO, JACLYN K 496 COPD 09/23/2011 465.9 UPPE R RESPIRATORY INFECTION 09/23/2011 496 COPD 09/30/2011 SUGAR DEVRIES MD 461. 9 SINUSITIS ACUTE 09/30/2011 SUGAR DEVRIES MD 461. 9 SINUSITIS ACUTE 09/30/2011 SUGAR DEVRIES MD 461. 9 SINUSITIS ACUTE 09/30/2011 461.9 SINU SITIS ACUTE 09/30/2011 461.9 SINU SITIS ACUTE 09/30/2011 461.9 SINU SITIS ACUTE 09/30/2011 461.9 SINU SITIS ACUTE 09/30/2011 461.9 SINU SITIS ACUTE 09/30/2011 CRUZ DO, JACLYN K 461.9 SINUSITIS ACUTE 09/30/2011 CRUZ DO, JACLYN K 461.9 SINUSITIS ACUTE 09/30/2011 CRUZ DO, JACLYN K 461.9 SINUSITIS ACUTE 09/30/2011 CRUZ DO, JACLYN K 461.9 SINUSITIS ACUTE 09/30/2011 CRUZ DO, JACLYN K 461.9 SINUSITIS ACUTE 09/30/2011 CRUZ DO, JACLYN K 461.9 SINUSITIS ACUTE 09/30/2011 HELLWIG ONSHORE DIVER, YU E 461.9 SINUSITIS ACUTE 09/30/2011 CRUZ DO, JACLYN K 461.9 SINUSITIS ACUTE 09/30/2011 HELLWIG ONSHORE DIVER, YU E 461.9 SINUSITIS ACUTE 09/30/2011 HELLWIG ONSHORE DIVER, YU E 461.9 SINUSITIS ACUTE 09/30/2011 HELLWIG ONSHORE DIVER, YU E 461.9 SINUSITIS ACUTE 09/30/2011 HELLWIG ONSHORE DIVER, YU E 461.9 SINUSITIS ACUTE 09/30/2011 CRUZ DO, JACLYN K 461.9 SINUSITIS ACUTE 09/30/2011 461.9 SINU SITIS ACUTE 11/20/2011 SUGAR DEVRIES MD 599. 0 URINARY TRACT INFECTION SITE NOT SPECIFIED 11/20/2011 SUGAR DEVRIES MD 719. 44 PAIN IN JOINT INVOLVING HAND 11/20/2011 SUGAR DEVRIES MD 724. 2 LUMBAGO 11/20/2011 SUGAR DEVRIES MD 599. 0 URINARY TRACT INFECTION SITE NOT SPECIFIED 11/20/2011 SUGAR DEVRIES MD 71Tania. 44 PAIN IN JOINT INVOLVING HAND 11/20/2011 SUGAR DEVRIES MD 724. 2 LUMBAGO 11/20/2011 SUGAR DEVRIES MD 599. 0 URINARY TRACT INFECTION SITE NOT SPECIFIED 11/20/2011 SUGAR DEVRIES MD 719. 44 PAIN IN JOINT INVOLVING HAND 11/20/2011 SUGAR DEVRIES MD 72Matthew. 2 LUMBAGO 11/20/2011 599.0 URIN ALPA TRACT INFECTION SITE NOT SPECIFIED 11/20/2011 719.44 WYATT N IN JOINT INVOLVING HAND 11/20/2011 724.2 LUMBAGO 11/20/2011 599.0 URIN ALPA TRACT INFECTION SITE NOT SPECIFIED 11/20/2011 719.44 WYATT N IN JOINT INVOLVING HAND 11/20/2011 724.2 LUMBAGO 11/20/2011 599.0 URIN ALPA TRACT INFECTION SITE NOT SPECIFIED 11/20/2011 719.44 WYATT N IN JOINT INVOLVING HAND 11/20/2011 724.2 LUMBAGO 11/20/2011 599.0 URIN ALPA TRACT INFECTION SITE NOT SPECIFIED 11/20/2011 719.44 WYATT N IN JOINT INVOLVING HAND 11/20/2011 724.2 LUMBAGO 11/20/2011 599.0 URIN ALPA TRACT INFECTION SITE NOT SPECIFIED 11/20/2011 719.44 WYATT N IN JOINT INVOLVING HAND 11/20/2011 724.2 LUMBAGO 11/20/2011 CRUZ DO, JACLYN K 599.0 URINARY TRACT INFECTION SITE NOT SPECIFIED 11/20/2011 CRUZ DO JACLYN K 719.44 PAIN IN JOINT INVOLVING HAND 11/20/2011 CRUZ DO JACLYN K 724.2 LUMBAGO 11/20/2011 CRUZ DO, JACLYN K 599.0 URINARY TRACT INFECTION SITE NOT SPECIFIED 11/20/2011 CRUZ DO, JACLYN K 719.44 PAIN IN JOINT INVOLVING HAND 11/20/2011 CRUZ DO, JACLYN K 724.2 LUMBAGO 11/20/2011 CRUZ DO, JACLYN K 599.0 URINARY TRACT INFECTION SITE NOT SPECIFIED 11/20/2011 CRUZ DO JACLYN K 719.44 PAIN IN JOINT INVOLVING HAND 11/20/2011 CRUZ DO, JACLYN K 724.2 LUMBAGO 11/20/2011 CRUZ DO JACLYN K 599.0 URINARY TRACT INFECTION SITE NOT SPECIFIED 11/20/2011 CRUZ DO JACLYN K 719.44 PAIN IN JOINT INVOLVING HAND 11/20/2011 CRUZ DO, JACLYN K 724.2 LUMBAGO 11/20/2011 CRUZ DO, JACLYN K 599.0 URINARY TRACT INFECTION SITE NOT SPECIFIED 11/20/2011 CRUZ DO, JACLYN K 719.44 PAIN IN JOINT INVOLVING HAND 11/20/2011 CRUZ DO, JACLYN K 724.2 LUMBAGO 11/20/2011 CRUZ DO, JACLYN K 599.0 URINARY TRACT INFECTION SITE NOT SPECIFIED 11/20/2011 CRUZ DO JACLYN K 719.44 PAIN IN JOINT INVOLVING HAND 11/20/2011 CRUZ DO, JACLYN K 724.2 LUMBAGO 11/20/2011 HELLWIG ONSHORE DIVER, YU E 599.0 URINARY TRACT INFECTION SITE NOT SPECIFIED 11/20/2011 HELLWIG ONSHORE DIVER YU E 719.44 PAIN IN JOINT INVOLVING HAND 11/20/2011 HELLWIG ONSHORE DIVER YU E 724.2 LUMBAGO 11/20/2011 CRUZ DO, JACLYN K 599.0 URINARY TRACT INFECTION SITE NOT SPECIFIED 11/20/2011 ANTHONY DO JACLYN K 719.44 PAIN IN JOINT INVOLVING HAND 11/20/2011 CRUZ DO JACLYN K 724.2 LUMBAGO 11/20/2011 HELLWIG ONSHORE DIVER, YU E 599.0 URINARY TRACT INFECTION SITE NOT SPECIFIED 11/20/2011 HELLWIG ONSHORE DIVER YU E 719.44 PAIN IN JOINT INVOLVING HAND 11/20/2011 HELLWIG ONSHORE DIVER YU E 724.2 LUMBAGO 11/20/2011 HELLWIG ONSHORE DIVER, YU E 599.0 URINARY TRACT INFECTION SITE NOT SPECIFIED 11/20/2011 SATISHLWIG ONSHORE DIVER YU E 719.44 PAIN IN JOINT INVOLVING HAND 11/20/2011 HELLWIG ONSHORE DIVER, YU E 724.2 LUMBAGO 11/20/2011 HELLWIG ONSHORE DIVER YU E 599.0 URINARY TRACT INFECTION SITE NOT SPECIFIED 11/20/2011 HELLWIG ONSHORE DIVER YU E 719.44 PAIN IN JOINT INVOLVING HAND 11/20/2011 HELLWIG ONSHORE DIVER YU E 724.2 LUMBAGO 11/20/2011 HELLWIG ONSHORE DIVER YU E 599.0 URINARY TRACT INFECTION SITE NOT SPECIFIED 11/20/2011 HELLWIG ONSHORE DIVER YU E 719.44 PAIN IN JOINT INVOLVING HAND 11/20/2011 HELLWIG ONSHORE DIVER YU E 724.2 LUMBAGO 11/20/2011 CRUZ DO JACLYN K 599.0 URINARY TRACT INFECTION SITE NOT SPECIFIED 11/20/2011 CRUZ DOROBERTA K 719.44 PAIN IN JOINT INVOLVING HAND 11/20/2011 CRUZ DO JACLYN K 724.2 LUMBAGO 11/20/2011 599.0 URIN ALPA TRACT INFECTION SITE NOT SPECIFIED 11/20/2011 719.44 WYATT N IN JOINT INVOLVING HAND 11/20/2011 724.2 LUMBAGO 12/04/2011 SUGAR DEVRIES MD 715. 14 OSTEOARTHROSIS LOCALIZED PRIMARY INVOLVING HAND 12/04/2011 SUGAR DEVRIES MD 715. 14 OSTEOARTHROSIS LOCALIZED PRIMARY INVOLVING HAND 12/04/2011 SUGAR DEVRIES MD 715. 14 OSTEOARTHROSIS LOCALIZED PRIMARY INVOLVING HAND 12/04/2011 715.14 OST EOARTHROSIS LOCALIZED PRIMARY INVOLVING HAND 12/04/2011 715.14 OST EOARTHROSIS LOCALIZED PRIMARY INVOLVING HAND 12/04/2011 715.14 OST EOARTHROSIS LOCALIZED PRIMARY INVOLVING HAND 12/04/2011 715.14 OST EOARTHROSIS LOCALIZED PRIMARY INVOLVING HAND 12/04/2011 715.14 OST EOARTHROSIS LOCALIZED PRIMARY INVOLVING HAND 12/04/2011 JACLYN CRUZ DO K 715.14 OSTEOARTHROSIS LOCALIZED PRIMARY INVOLVING HAND 12/04/2011 ROBERT CRUZ DOA K 715.14 OSTEOARTHROSIS LOCALIZED PRIMARY INVOLVING HAND 12/04/2011 ROBERT CRUZ DOA K 715.14 OSTEOARTHROSIS LOCALIZED PRIMARY INVOLVING HAND 12/04/2011 ROBERT CRUZ DOA K 715.14 OSTEOARTHROSIS LOCALIZED PRIMARY INVOLVING HAND 12/04/2011 ROBERT CRUZ DOA K 715.14 OSTEOARTHROSIS LOCALIZED PRIMARY INVOLVING HAND 12/04/2011 ROBERT CRUZ DOA K 715.14 OSTEOARTHROSIS LOCALIZED PRIMARY INVOLVING HAND 12/04/2011 MAGALI WEBSTER APRNE E 715.14 OSTEOARTHROSIS LOCALIZED PRIMARY INVOLVING HAND 12/04/2011 ROBERT CRUZ DOA K 715.14 OSTEOARTHROSIS LOCALIZED PRIMARY INVOLVING HAND 12/04/2011 DARIN BLEDSOE YU E 715.14 OSTEOARTHROSIS LOCALIZED PRIMARY INVOLVING HAND 12/04/2011 DARIN BLEDSOE YU E 715.14 OSTEOARTHROSIS LOCALIZED PRIMARY INVOLVING HAND 12/04/2011 DARIN BLEDSOE YU E 715.14 OSTEOARTHROSIS LOCALIZED PRIMARY INVOLVING HAND 12/04/2011 DARIN BLEDSOE YU E 715.14 OSTEOARTHROSIS LOCALIZED PRIMARY INVOLVING HAND 12/04/2011 ROBERT CRUZ DOA K 715.14 OSTEOARTHROSIS LOCALIZED PRIMARY INVOLVING HAND 12/04/2011 715.14 OST EOARTHROSIS LOCALIZED PRIMARY INVOLVING HAND 04/04/2012 SUGAR DEVRIES MD 244. 9 HYPOTHYROIDISM 04/04/2012 SUGAR DEVRIES MD 272. 4 OTHER AND UNSPECIFIED HYPERLIPIDEMIA 04/04/2012 SUGAR DEVRIES MD V76. 10 BREAST CANCER SCREENING 04/04/2012 SUGAR DEVRIES MD 244. 9 HYPOTHYROIDISM 04/04/2012 SUGAR DEVRIES MD 272. 4 OTHER AND UNSPECIFIED HYPERLIPIDEMIA 04/04/2012 SUGAR DEVRIES MD V76. 10 BREAST CANCER SCREENING 04/04/2012 SUGAR DEVRIES MD 244. 9 HYPOTHYROIDISM 04/04/2012 SUGAR DEVRIES MD 272. 4 OTHER AND UNSPECIFIED HYPERLIPIDEMIA 04/04/2012 SUGAR DEVRIES MD V76. 10 BREAST CANCER SCREENING 04/04/2012 244.9 HYPO THYROIDISM 04/04/2012 272.4 OTHE R AND UNSPECIFIED HYPERLIPIDEMIA 04/04/2012 V76.10 ADIN AST CANCER SCREENING 04/04/2012 244.9 HYPO THYROIDISM 04/04/2012 272.4 OTHE R AND UNSPECIFIED HYPERLIPIDEMIA 04/04/2012 V76.10 ADIN AST CANCER SCREENING 04/04/2012 244.9 HYPO THYROIDISM 04/04/2012 272.4 OTHE R AND UNSPECIFIED HYPERLIPIDEMIA 04/04/2012 V76.10 ADIN AST CANCER SCREENING 04/04/2012 244.9 HYPO THYROIDISM 04/04/2012 272.4 OTHE R AND UNSPECIFIED HYPERLIPIDEMIA 04/04/2012 V76.10 ADIN AST CANCER SCREENING 04/04/2012 244.9 HYPO THYROIDISM 04/04/2012 272.4 OTHE R AND UNSPECIFIED HYPERLIPIDEMIA 04/04/2012 V76.10 ADIN AST CANCER SCREENING 04/04/2012 CRUZ DO, JACLYN K [...] JACLYN K V76.10 BREAST CANCER SCREENING 04/04/2012 HELLWIG ONSHORE DIVER, YU E 244.9 HYPOTHYROIDISM 04/04/2012 HELLWIG ONSHORE DIVER, YU E 272.4 OTHER AND UNSPECIFIED HYPERLIPIDEMIA 04/04/2012 HELLWIG ONSHORE DIVER, YU E V76.10 BREAST CANCER SCREENING 04/04/2012 CRUZ DO, JACLYN K 244.9 HYPOTHYROIDISM 04/04/2012 CRUZ DO, JACLYN K 272.4 OTHER AND UNSPECIFIED HYPERLIPIDEMIA 04/04/2012 CRUZ DO, JACLYN K V76.10 BREAST CANCER SCREENING 04/04/2012 HELLWIG ONSHORE DIVER, YU E 244.9 HYPOTHYROIDISM 04/04/2012 HELLWIG ONSHORE DIVER, YU E 272.4 OTHER AND UNSPECIFIED HYPERLIPIDEMIA 04/04/2012 HELLWIG ONSHORE DIVER, YU E V76.10 BREAST CANCER SCREENING 04/04/2012 HELLWIG ONSHORE DIVER, YU E 244.9 HYPOTHYROIDISM 04/04/2012 HELLWIG ONSHORE DIVER, YU E 272.4 OTHER AND UNSPECIFIED HYPERLIPIDEMIA 04/04/2012 HELLWIG ONSHORE DIVER, YU E V76.10 BREAST CANCER SCREENING 04/04/2012 HELLWIG ONSHORE DIVER, YU E 244.9 HYPOTHYROIDISM 04/04/2012 HELLWIG ONSHORE DIVER, YU E 272.4 OTHER AND UNSPECIFIED HYPERLIPIDEMIA 04/04/2012 HELLWIG ONSHORE DIVER, YU E V76.10 BREAST CANCER SCREENING 04/04/2012 HELLWIG ONSHORE DIVER, YU E 244.9 HYPOTHYROIDISM 04/04/2012 HELLWIG ONSHORE DIVER, YU E 272.4 OTHER AND UNSPECIFIED HYPERLIPIDEMIA 04/04/2012 HELLWIG ONSHORE DIVER, YU E V76.10 BREAST CANCER SCREENING 04/04/2012 CRUZ DO, JACLYN K 244.9 HYPOTHYROIDISM 04/04/2012 CRUZ DO, JACLYN K 272.4 OTHER AND UNSPECIFIED HYPERLIPIDEMIA 04/04/2012 CRUZ DO, JACLYN K V76.10 BREAST CANCER SCREENING 04/04/2012 244.9 HYPO THYROIDISM 04/04/2012 272.4 OTHE R AND UNSPECIFIED HYPERLIPIDEMIA 04/04/2012 V76.10 ADIN AST CANCER SCREENING 09/28/2012 JAYCOB BENAVIDEZ, SUGAR 565. 0 ANAL FISSURE 09/28/2012 JAYCOB BENAVIDEZ, SUGAR 565. 0 ANAL FISSURE 09/28/2012 SUGAR DEVRIES MD 565. 0 ANAL FISSURE 09/28/2012 565.0 ANAL FISSURE 09/28/2012 565.0 ANAL FISSURE 09/28/2012 565.0 ANAL FISSURE 09/28/2012 565.0 ANAL FISSURE 09/28/2012 565.0 ANAL FISSURE 09/28/2012 CRUZ DO, JACLYN K 565.0 ANAL FISSURE 09/28/2012 CRUZ DO, JACLYN K 565.0 ANAL FISSURE 09/28/2012 CRUZ DO, JACLYN K 565.0 ANAL FISSURE 09/28/2012 CRUZ DO, JACLYN K 565.0 ANAL FISSURE 09/28/2012 CRUZ DO, JACLYN K 565.0 ANAL FISSURE 09/28/2012 CRUZ DO, JACLYN K 565.0 ANAL FISSURE 09/28/2012 HELLWIG ONSHORE DIVER, YU E 565.0 ANAL FISSURE 09/28/2012 CRUZ DO, JACLYN K 565.0 ANAL FISSURE 09/28/2012 HELLWIG ONSHORE DIVER, YU E 565.0 ANAL FISSURE 09/28/2012 HELLWIG ONSHORE DIVER, YU E 565.0 ANAL FISSURE 09/28/2012 HELLWIG ONSHORE DIVER, YU E 565.0 ANAL FISSURE 09/28/2012 HELLWIG ONSHORE DIVER, YU E 565.0 ANAL FISSURE 09/28/2012 CRUZ DO, JACLYN K 565.0 ANAL FISSURE 10/13/2012 SUGAR DEVRIES MD 704. 1 excessive facial or body hair (hirsutism) 10/13/2012 SUGAR DEVRIES MD 719. 40 ARTHRALGIA 10/13/2012 SUGAR DEVRIES MD 719. 41 joint pain, localized in the left shoulder 10/13/2012 SUGAR DEVRIES MD 704. 1 excessive facial or body hair (hirsutism) 10/13/2012 SUGAR DEVRIES MD 719. 40 ARTHRALGIA 10/13/2012 SUGAR DEVRIES MD 719. 41 joint pain, localized in the left shoulder 10/13/2012 704.1 exce ssive facial or body hair (hirsutism) 10/13/2012 719.40 ART HRALGIA 10/13/2012 719.41 shaina nt pain, localized in the left shoulder 10/13/2012 704.1 exce ssive facial or body hair (hirsutism) 10/13/2012 719.40 ART HRALGIA 10/13/2012 719.41 shaina nt pain, localized in the left shoulder 10/13/2012 704.1 exce ssive facial or body hair (hirsutism) 10/13/2012 719.40 ART HRALGIA 10/13/2012 719.41 shaina nt pain, localized in the left shoulder 10/13/2012 704.1 exce ssive facial or body hair (hirsutism) 10/13/2012 719.40 ART HRALGIA 10/13/2012 719.41 shaina nt pain, localized in the left shoulder 10/13/2012 704.1 exce ssive facial or body hair (hirsutism) 10/13/2012 719.40 ART HRALGIA 10/13/2012 719.41 shaina nt pain, localized in the left shoulder 10/13/2012 JACLYN CRUZ DO 704.1 excessive facial or body hair (hirsutism) 10/13/2012 JACLYN CRUZ DO 719.40 ARTHRALGIA 10/13/2012 JACLYN CRUZ DO 719.41 joint pain, localized in the left shoulder 10/13/2012 JACLYN CRUZ DO 704.1 excessive facial or body hair (hirsutism) [...] localized in the left shoulder 10/13/2012 DARIN ONSHORE DIVER YU E 704.1 excessive facial or body hair (hirsutism) 10/13/2012 SATISHLALEXANDER ONSHORE DIVER YU E 719.40 ARTHRALGIA 10/13/2012 SATISHLWIG ONSHORE DIVER YU E 719.41 joint pain, localized in the left shoulder 10/13/2012 CRUZ DO, JACLYN K 704.1 excessive facial or body hair (hirsutism) 10/13/2012 CRUZ DO, JACLYN K 719.40 ARTHRALGIA 10/13/2012 CRUZ DO, JACLYN K 719.41 joint pain, localized in the left shoulder 10/13/2012 HELLWIG ONSHORE DIVER YU E 704.1 excessive facial or body hair (hirsutism) 10/13/2012 SATISHLWIG ONSHORE DIVER YU E 719.40 ARTHRALGIA 10/13/2012 HELLWIG ONSHORE DIVER, YU E 719.41 joint pain, localized in the left shoulder 10/13/2012 HELLWIG ONSHORE DIVER, YU E 704.1 excessive facial or body hair (hirsutism) 10/13/2012 HELLWIG ONSHORE DIVER, YU E 719.40 ARTHRALGIA 10/13/2012 HELLWIG ONSHORE DIVER, YU E 719.41 joint pain, localized in the left shoulder 10/13/2012 HELLWIG ONSHORE DIVER, YU E 704.1 excessive facial or body hair (hirsutism) 10/13/2012 HELLWIG ONSHORE DIVER, YU E 719.40 ARTHRALGIA 10/13/2012 HELLWIG ONSHORE DIVER, YU E 719.41 joint pain, localized in the left shoulder 10/13/2012 HELLWIG ONSHORE DIVER, YU E 704.1 excessive facial or body hair (hirsutism) 10/13/2012 HELLALEXANDER ONSHORE DIVER, YU E 719.40 ARTHRALGIA 10/13/2012 HELLWIG ONSHORE DIVER, YU E 719.41 joint pain, localized in the left shoulder 10/13/2012 CRUZ DO, JACLYN K 704.1 excessive facial or body hair (hirsutism) 10/13/2012 CRUZ DO JACLYN K 719.40 ARTHRALGIA 10/13/2012 CRUZ DO JACLYN K 719.41 joint pain, localized in the left shoulder 10/27/2012 SUGAR DEVRIES MD 724. 5 back pain 10/27/2012 SUGAR DEVRIES MD 729. 5 pain in the hands 10/27/2012 SUGAR DEVRIES MD 782. 1 skin: a rash [as Sx] 10/27/2012 724.5 back pain 10/27/2012 729.5 pain in the hands 10/27/2012 782.1 skin : a rash [as Sx] 10/27/2012 724.5 back pain 10/27/2012 729.5 pain in the hands 10/27/2012 782.1 skin : a rash [as Sx] 10/27/2012 724.5 back pain 10/27/2012 729.5 pain in the hands 10/27/2012 782.1 skin : a rash [as Sx] 10/27/2012 724.5 back pain 10/27/2012 729.5 pain in the hands 10/27/2012 782.1 skin : a rash [as Sx] 10/27/2012 724.5 back pain 10/27/2012 729.5 pain in the hands 10/27/2012 782.1 skin : a rash [as Sx] 10/27/2012 CRUZ DO, [...] E 729.5 pain in the hands 10/27/2012 DARIN BLEDSOE YU E 782.1 skin: a rash [as Sx] 10/27/2012 CRUZ DO, JACLYN K 724.5 back pain 10/27/2012 CRUZ DO, JACLYN K 729.5 pain in the hands 10/27/2012 CRUZ DO, JACLYN K 782.1 skin: a rash [as Sx] 10/27/2012 DARIN BLEDSOE YU E 724.5 back pain 10/27/2012 HELLALEXANDER BLEDSOE YU E 729.5 pain in the hands 10/27/2012 HELLALEXANDER BLEDSOE, YU E 782.1 skin: a rash [as Sx] 10/27/2012 DARIN BLEDSOE YU E 724.5 back pain 10/27/2012 DARIN BLEDSOE YU E 729.5 pain in the hands 10/27/2012 DARIN BLEDSOE YU E 782.1 skin: a rash [as Sx] 10/27/2012 DARIN BLEDSOE, YU E 724.5 back pain 10/27/2012 HELPURNIMA BLEDSOE, YU E 729.5 pain in the hands 10/27/2012 DARIN BLEDSOE YU E 782.1 skin: a rash [as Sx] 10/27/2012 DARIN BLEDSOE YU E 724.5 back pain 10/27/2012 DARIN BLEDSOE YU E 729.5 pain in the hands 10/27/2012 DARIN BLEDSOE YU E 782.1 skin: a rash [as Sx] 10/27/2012 CRUZ DO, JACLYN K 724.5 back pain 10/27/2012 CRUZ DO, JACLYN K 729.5 pain in the hands 10/27/2012 CRUZ DO, JACLYN K 782.1 skin: a rash [as Sx] 02/02/2013 789.04 abd ominal pain in the left lower belly (LLQ) 02/02/2013 789.04 abd ominal pain in the left lower belly (LLQ) 02/02/2013 789.04 abd ominal pain in the left lower belly (LLQ) 02/02/2013 789.04 abd ominal pain in the left lower belly (LLQ) [...] in the left lower belly (LLQ) 02/02/2013 MAGALI WEBSTER APRNE E 789.04 abdominal pain in the left lower belly (LLQ) 02/02/2013 CRUZ DO, JACLYN K 789.04 abdominal pain in the left lower belly (LLQ) 02/02/2013 ROBERT WEBSTER APRNSIE E 789.04 abdominal pain in the left lower belly (LLQ) 02/02/2013 ROBERT WEBSTER APRNSIE E 789.04 abdominal pain in the left lower belly (LLQ) 02/02/2013 ROBERT WEBSTER APRNSIE E 789.04 abdominal pain in the left lower belly (LLQ) 02/02/2013 ROBERT WEBSTER APRNSIE E 789.04 abdominal pain in the left lower belly (LLQ) 02/02/2013 CRUZ DO, JACLYN K 789.04 abdominal pain in the left lower belly (LLQ) 05/01/2013 696.1 OTHE R PSORIASIS AND SIMILAR DISORDERS 05/01/2013 696.1 OTHE R PSORIASIS AND SIMILAR DISORDERS 05/01/2013 JACLYN CRUZ DO 696.1 OTHER PSORIASIS AND SIMILAR DISORDERS 05/01/2013 ROBERT CRUZ DOA Concepcion 696.1 OTHER PSORIASIS AND SIMILAR DISORDERS 05/01/2013 JACLYN CRUZ DO 696.1 OTHER PSORIASIS AND SIMILAR DISORDERS 05/01/2013 CRUZ DO, JACLYN K 696.1 OTHER PSORIASIS AND SIMILAR DISORDERS 05/01/2013 CRUZ DO, JACLYN K 696.1 OTHER PSORIASIS AND SIMILAR DISORDERS 05/01/2013 CRUZ DO, JACLYN K 696.1 OTHER PSORIASIS AND SIMILAR DISORDERS 05/01/2013 HELLWIG ONSHORE DIVER, YU E 696.1 OTHER PSORIASIS AND SIMILAR DISORDERS 05/01/2013 CRUZ DO, JACLYN K 696.1 OTHER PSORIASIS AND SIMILAR DISORDERS 05/01/2013 HELLWIG ONSHORE DIVER, YU E 696.1 OTHER PSORIASIS AND SIMILAR DISORDERS 05/01/2013 HELLWIG ONSHORE DIVER, YU E 696.1 OTHER PSORIASIS AND SIMILAR DISORDERS 05/01/2013 HELLWIG ONSHORE DIVER, YU E 696.1 OTHER PSORIASIS AND SIMILAR DISORDERS 05/01/2013 HELLWIG ONSHORE DIVER, YU E 696.1 OTHER PSORIASIS AND SIMILAR DISORDERS 05/01/2013 CRUZ DO, JACLYN K 696.1 OTHER PSORIASIS AND SIMILAR DISORDERS 05/17/2013 701.1 KATJA TODERMA ACQUIRED 05/17/2013 757.39 [facility] ER SPECIFIED CONGENITAL ANOMALIES OF SKIN 05/17/2013 CRUZ [...] SPECIFIED CONGENITAL ANOMALIES OF SKIN 05/17/2013 HELLWIG ONSHORE DIVER YU E 701.1 KERATODERMA ACQUIRED 05/17/2013 HELLWIG ONSHORE DIVER, YU E 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 05/17/2013 CRUZ DO, JACLYN K 701.1 KERATODERMA ACQUIRED 05/17/2013 CRUZ DO, JACLYN K 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 05/17/2013 HELLWIG ONSHORE DIVER, YU E 701.1 KERATODERMA ACQUIRED 05/17/2013 HELLWIG ONSHORE DIVER, YU E 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 05/17/2013 HELLWIG ONSHORE DIVER, YU E 701.1 KERATODERMA ACQUIRED 05/17/2013 HELLWIG ONSHORE DIVER, YU E 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 05/17/2013 HELLWIG ONSHORE DIVER, YU E 701.1 KERATODERMA ACQUIRED 05/17/2013 HELLWIG ONSHORE DIVER, YU E 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 05/17/2013 HELLWIG ONSHORE DIVER, YU E 701.1 KERATODERMA ACQUIRED 05/17/2013 HELLWIG ONSHORE DIVER, YU E 757.39 OTHER SPECIFIED CONGENITAL ANOMALIES [...] 477.0 ALLERGIC RHINITIS DUE TO POLLEN 05/23/2013 CURZ DO, JACLYN K V04.81 FLU DX (3 YRS AND ABOVE, IM) 05/23/2013 HELLWIG ONSHORE DIVER, YU E 477.0 ALLERGIC RHINITIS DUE TO POLLEN 05/23/2013 HELLWIG ONSHORE DIVER, YU E V04.81 FLU DX (3 YRS AND ABOVE, IM) 05/23/2013 CRUZ DO, JACLYN K 477.0 ALLERGIC RHINITIS DUE TO POLLEN 05/23/2013 CRUZ DO, JACLYN K V04.81 FLU DX (3 YRS AND ABOVE, IM) 05/23/2013 HELLWIG ONSHORE DIVER, YU E 477.0 ALLERGIC RHINITIS DUE TO POLLEN 05/23/2013 HELLWIG ONSHORE DIVER, YU E V04.81 FLU DX (3 YRS AND ABOVE, IM) 05/23/2013 HELLWIG ONSHORE DIVER, YU E 477.0 ALLERGIC RHINITIS DUE TO POLLEN 05/23/2013 HELLWIG ONSHORE DIVER, YU E V04.81 FLU DX (3 YRS AND ABOVE, IM) 05/23/2013 HELLWIG ONSHORE DIVER, YU E 477.0 ALLERGIC RHINITIS DUE TO POLLEN 05/23/2013 HELLWIG ONSHORE DIVER, YU E V04.81 FLU DX (3 YRS AND ABOVE, IM) 05/23/2013 HELLWIG ONSHORE DIVER, YU E 477.0 ALLERGIC RHINITIS DUE TO POLLEN 05/23/2013 HELLWIG ONSHORE DIVER, YU E V04.81 FLU DX (3 YRS AND ABOVE, IM) 05/23/2013 CRUZ DO, JACLYN K 477.0 ALLERGIC RHINITIS DUE TO POLLEN 05/23/2013 CRZU DO, JACLYN K V04.81 FLU DX (3 YRS AND ABOVE, IM) 06/07/2013 CRUZ DO, JACLYN K 466.0 ACUTE BRONCHITIS 06/07/2013 CRUZ DO, JACLYN K 466.0 ACUTE BRONCHITIS 06/07/2013 CRUZ DO, JACLYN K 466.0 ACUTE BRONCHITIS 06/07/2013 CRUZ DO, JACLYN K 466.0 ACUTE BRONCHITIS 06/07/2013 CRUZ DO, JACLYN K 466.0 ACUTE BRONCHITIS 06/07/2013 HELLWIG ONSHORE DIVER, YU E 466.0 ACUTE BRONCHITIS 06/07/2013 CRUZ DO, JACLYN K 466.0 ACUTE BRONCHITIS 06/07/2013 HELLWIG ONSHORE DIVER, YU E 466.0 ACUTE BRONCHITIS 06/07/2013 HELLWIG ONSHORE DIVER, YU E 466.0 ACUTE BRONCHITIS 06/07/2013 HELLWIG ONSHORE DIVER, YU E 466.0 ACUTE BRONCHITIS 06/07/2013 HELLWIG ONSHORE DIVER, YU E 466.0 ACUTE BRONCHITIS 06/07/2013 CRUZ DO, JACLYN K 466.0 ACUTE BRONCHITIS 07/20/2013 CRUZ DO, JACLYN K 386.11 BENIGN PAROXYSMAL POSITIONAL VERTIGO 07/20/2013 CRUZ DO, JACLYN K 386.11 BENIGN PAROXYSMAL POSITIONAL VERTIGO 07/20/2013 HELLWIG ONSHORE DIVER, YU E 386.11 BENIGN PAROXYSMAL POSITIONAL VERTIGO 07/20/2013 CRUZ DO, JACLYN K 386.11 BENIGN PAROXYSMAL POSITIONAL VERTIGO 07/20/2013 HELLWIG ONSHORE DIVER, YU E 386.11 BENIGN PAROXYSMAL POSITIONAL VERTIGO 07/20/2013 HELLWIG ONSHORE DIVER, YU E 386.11 BENIGN PAROXYSMAL POSITIONAL VERTIGO 07/20/2013 HELLWIG ONSHORE DIVER, YU E 386.11 BENIGN PAROXYSMAL POSITIONAL VERTIGO 07/20/2013 HELLWIG ONSHORE DIVER, YU E 386.11 BENIGN PAROXYSMAL POSITIONAL VERTIGO 07/20/2013 CRUZ DO, JACLYN K 386.11 BENIGN PAROXYSMAL POSITIONAL VERTIGO 08/11/2013 HELLWIG ONSHORE DIVER, YU E 461.0 ACUTE MAXILLARY SINUSITIS 08/11/2013 CRUZ DO, JACLYN K 461.0 ACUTE MAXILLARY SINUSITIS 08/11/2013 HELLWIG ONSHORE DIVER, YU E 461.0 ACUTE MAXILLARY SINUSITIS 08/11/2013 HELLWIG ONSHORE DIVER, YU E 461.0 ACUTE MAXILLARY SINUSITIS 08/11/2013 HELLWIG ONSHORE DIVER, YU E 461.0 ACUTE MAXILLARY SINUSITIS 08/11/2013 HELLWIG ONSHORE DIVER, YU E 461.0 ACUTE MAXILLARY SINUSITIS 08/11/2013 CRUZ DO, JACLYN K 461.0 ACUTE MAXILLARY SINUSITIS 12/06/2013 CRUZ DO, JACLYN K 724.3 SCIATICA 12/06/2013 HELLWIG ONSHORE DIVER, YU E 724.3 SCIATICA 12/06/2013 SATISHWIG ONSHORE DIVER, YU E 724.3 SCIATICA 12/06/2013 SATISHLWIG ONSHORE DIVER, YU E 724.3 SCIATICA 12/06/2013 HELLWIG ONSHORE DIVER, YU E 724.3 SCIATICA 12/06/2013 CRUZ DO, JACLYN K 724.3 SCIATICA 05/25/2014 SATISHWIG LADI YU E 564.00 UNSPECIFIED CONSTIPATION 05/25/2014 SATISHWIG ONSHORE DIVER, YU E 722.6 DEGENERATION OF INTERVERTEBRAL DISC SITE UNSPECIFIED 05/25/2014 SATISHWIG ONSHORE DIVER, YU E 780.93 MEMORY LOSS 05/25/2014 SATISHWIG LADI YU E 787.20 DYSPHAGIA UNSPECIFIED 05/25/2014 SATISHWIG LADI YU E V12.72 PERSONAL HISTORY OF COLONIC POLYPS 05/25/2014 SATISHROBERT MUNOZ APRNSIE E 564.00 UNSPECIFIED CONSTIPATION 05/25/2014 SATISHROBERT MUNOZ APRNSIE E 722.6 DEGENERATION OF INTERVERTEBRAL DISC SITE UNSPECIFIED 05/25/2014 SATISHALEXANDER BLEDSOE YU E 780.93 MEMORY LOSS 05/25/2014 SATISHROBERT MUNOZ APRNSIE E 787.20 DYSPHAGIA UNSPECIFIED 05/25/2014 SATISHALEXANDER BLEDSOE YU E V12.72 PERSONAL HISTORY OF COLONIC POLYPS 05/25/2014 SATISHROBERT MUNOZ APRNSIE E 564.00 UNSPECIFIED CONSTIPATION 05/25/2014 SATISHROBERT MUNOZ APRNSIE E 722.6 DEGENERATION OF INTERVERTEBRAL DISC SITE UNSPECIFIED 05/25/2014 SATISHWIG LADI YU E 780.93 MEMORY LOSS 05/25/2014 [facility] YU E 787.20 DYSPHAGIA UNSPECIFIED 05/25/2014 [facility] YU E V12.72 PERSONAL HISTORY OF COLONIC POLYPS 05/25/2014 CRUZ DO, JACLYN K 564.00 UNSPECIFIED CONSTIPATION 05/25/2014 CRUZ DO, JACLYN K 722.6 DEGENERATION OF INTERVERTEBRAL DISC SITE UNSPECIFIED 05/25/2014 CRUZ DO, JACLYN K 780.93 MEMORY LOSS 05/25/2014 CRUZ DO, JACLYN K 787.20 DYSPHAGIA UNSPECIFIED 05/25/2014 ROBERT CRUZ DOA K V12.72 PERSONAL HISTORY OF COLONIC POLYPS 08/06/2014 DARIN BLEDSOE YU E 455.0 INTERNAL HEMORRHOIDS WITHOUT COMPLICATION 08/06/2014 HELLWIG ONSHORE DIVER, YU E 455.5 EXTERNAL HEMORRHOIDS WITH OTHER COMPLICATION 08/06/2014 HELLALEXANDER ONSHORE DIVER, YU E 562.10 DIVERTICULOSIS OF COLON (WITHOUT HEMORRHAGE) 08/06/2014 HELLWIG ONSHORE DIVER, YU E 455.0 INTERNAL HEMORRHOIDS WITHOUT COMPLICATION 08/06/2014 HELLWIG ONSHORE DIVER, YU E 455.5 EXTERNAL HEMORRHOIDS WITH OTHER COMPLICATION 08/06/2014 HELLWIG ONSHORE DIVER, YU E 562.10 DIVERTICULOSIS OF COLON (WITHOUT HEMORRHAGE) 08/06/2014 ANTHONY DE LA TORRE JACLYN K 455.0 INTERNAL HEMORRHOIDS WITHOUT COMPLICATION 08/06/2014 ANTHONY DE LA TORRE JACLYN K 455.5 EXTERNAL HEMORRHOIDS WITH OTHER COMPLICATION 08/06/2014 ANTHONY DE LA TORRE JACLYN K 562.10 DIVERTICULOSIS OF COLON (WITHOUT HEMORRHAGE) 09/26/2014 JAYCOB BENAVIDEZ, SUGAR Alcocer Ot 729.5 09/26/2014 JAYCOB BENAVIDEZ, SUGAR Alcocer Ot 780.79 09/26/2014 JAYCOB BENAVIDEZ, SUGAR Alcocer Ot 715.94 09/26/2014 JAYCOB BENAVIDEZ, SUGAR Alcocer Ot 722.4 09/26/2014 SUGAR DEVRIES MD Ot 722.51 09/26/2014 SUGAR DEVRIES MD Ot 722.52 09/26/2014 YU WEBSTER APRN Ot V76.12 09/26/2014 YU WEBSTER APRN Ot 722.52 09/28/2014 ALLY ALMEIDA MD Ot 278. 00 OBESITY, NOS 09/28/2014 ALLY ALMEIDA MD Ot 721. 3 LUMBOSACRAL SPONDYLOSIS 09/28/2014 ALLY ALMEDIA MD Ot 722. 52 LUMB/LUMBOSAC DISC DEGEN 09/28/2014 ALLY ALMEIDA MD Ot V58. 69 OT MED,LT,CURRENT USE 09/28/2014 ALLY ALMEIDA MD Ot V85. 35 BODY MASS INDEX 35.0-35.9, ADULT 10/10/2014 YU WEBSTER APRN E 530.81 ESOPHAGEAL REFLUX 10/10/2014 YU WEBSTER APRN 702.0 ACTINIC KERATOSIS 10/10/2014 ANTHONY ROBERT DE LA TORREA K 530.81 ESOPHAGEAL REFLUX 10/10/2014 CRUZ JACLYN K 702.0 ACTINIC KERATOSIS 11/05/2014 Ot 721.3 LUMB OSACRAL SPONDYLOSIS 11/05/2014 Ot 722.52 LUM B/LUMBOSAC DISC DEGEN 11/05/2014 Ot V58.69 OT MED,LT,CURRENT USE 12/28/2014 CRUZ JACLYN K 381.81 DYSFUNCTION OF EUSTACHIAN TUBE 12/28/2014 ROBERT CRUZ DOA K 727.1 BUNION 12/28/2014 JACLYN CRUZ DO V76.19 OTHER SCREENING BREAST EXAMINATION 02/01/2015 YU WEBSTER ONSHORE DIVER Ot V76.12 02/25/2015 YU WEBSTER ONSHORE DIVER Ot V76.12 05/13/2015 JAYCOB BENAVIDEZ, SUGAR Alcocer Ot 729.5 05/13/2015 JAYCOB BENAVIDEZ, SUGAR Alcocer Ot 780.79 05/13/2015 JAYCOB BENAVIDEZ, SUGAR Alcocer Ot 715.94 05/13/2015 JAYCOB BENAVIDEZ, SUGAR Alcocer Ot 722.4 05/13/2015 SUGAR DEVRIES MD Ot 722.51 05/13/2015 SUGAR DEVRIES MD Ot 722.52 05/13/2015 YU WEBSTER ONSHORE DIVER Ot V76.12 05/13/2015 YU WEBSTER ONSHORE DIVER Ot 722.52 05/13/2015 YU WEBSTER ONSHORE DIVER Ot V76.12 06/05/2015 ALLY ALMEIDA MD Ot 722. 52 06/05/2015 ALLY ALMEIAD MD Ot 724. 6 06/27/2015 YU WEBSTER ONSHORE DIVER Ot V76.12 06/27/2015 ALLY ALMEIDA MD Ot 722. 52 06/27/2015 ALLY ALMEIDA MD Ot 724. 6 06/27/2015 ALLY ALMEIDA MD Ot 722. 52 06/27/2015 ALLY ALMEIDA MD Ot 724. 6 07/22/2015 KIM ZAMORANO ONSHORE DIVER Ot F17.211 07/22/2015 IKM ZAMORANO ONSHORE DIVER Ot M41.26 07/22/2015 KIM ZAMORANO ONSHORE DIVER Ot M47.897 07/22/2015 KIM ZAMORANO ONSHORE DIVER Ot M54.16 07/22/2015 KIM ZAMORANO ONSHORE DIVER Ot N39 .0 07/23/2015 JAYCOB BENAVIDEZ, SUGAR Alcocer Ot 729.5 07/23/2015 JAYCOB BENAVIDEZ, SUGAR Alcocer Ot 780.79 07/23/2015 JAYCOB BENAVIDEZ, SUGAR Alcocer Ot 715.94 07/23/2015 JAYCOB BENAVIDEZ, SUGAR Alcocer Ot 722.4 07/23/2015 JAYCOB BENAVIDEZ, SUGAR Alcocer Ot 722.51 07/23/2015 JAYCOB BENAVIDEZ, SUGAR Alcocer Ot 722.52 07/23/2015 YU WEBSTER ONSHORE DIVER Ot V76.12 07/23/2015 HELROBERT FELTONSIE E ONSHORE DIVER Ot 722.52 07/23/2015 YU WEBSTER E ONSHORE DIVER Ot V76.12 07/23/2015 ALLY ALMEIDA MD Ot 722. 52 07/23/2015 ALLY ALMEIDA MD Ot 724. 6 07/24/2015 SUSAN POLLOCK MD Ot E03 .9 HYPOTHYROIDISM, UNSPECIFIED 07/24/2015 SUSAN POLLOCK MD, Ot E66 .9 OBESITY, UNSPECIFIED 07/24/2015 SUSAN POLLOCK MD, Ot E78 .5 HYPERLIPIDEMIA, UNSPECIFIED 07/24/2015 SUSAN POLLOCK MD Ot I10 ESSENTIAL (PRIMARY) HYPERTENSION 07/24/2015 SUSAN POLLOCK MD, Ot I25.10 ATHSCL HEART DISEASE OF [place] CORONARY 07/24/2015 SUSAN POLLOCK MD, Ot K21 .9 GASTRO-ESOPHAGEAL REFLUX DISEASE WITHOUT 07/24/2015 SUSAN POLLOCK MD, Ot K44 .9 DIAPHRAGMATIC HERNIA WITHOUT OBSTRUCTION 07/24/2015 SUSAN POLLOCK MD, Ot N39 .0 URINARY TRACT INFECTION, SITE NOT SPECIF 07/24/2015 SUSAN POLLOCK MD, Ot R07.89 OTHER CHEST PAIN 07/24/2015 SUSAN POLLOCK MD, Ot Z68.35 BODY MASS INDEX (BMI) 35.0-35.9, ADULT 07/24/2015 SUSAN POLLOCK MD, Ot Z79.899 OTHER LONG-TERM (CURRENT) DRUG THERAPY 07/24/2015 SUSAN POLLOCK MD Ot Z87.891 PERSONAL HISTORY OF NICOTINE DEPENDENCE 07/26/2015 ALLY ALMEIDA MD Ot E66. 9 OBESITY, UNSPECIFIED 07/26/2015 ALLY ALMEIDA MD, Ot M47.816 SPONDYLOSIS W/O MYELOPATHY OR RADICULOPA 07/26/2015 ALLY ALMEIDA MD, Ot M51. 16 INTERVERTEBRAL DISC DISORDERS W RADICULO 07/26/2015 ALLY ALMEIDA MD Ot M79. 1 MYALGIA 07/26/2015 ALLY ALMEIDA MD, Ot Z68. 34 BODY MASS INDEX (BMI) 34.0-34.9, ADULT 07/26/2015 ALLY ALMEIDA MD, Ot Z79.899 OTHER FIELD TRAFFIC INVESTIGATOR (CURRENT) DRUG THERAPY 08/07/2015 ALLY ALMEIDA MD Ot 722. 52 08/07/2015 ALLY ALMEIDA MD Ot 724. 6 08/07/2015 YU WEBSTER APRN Ot V76.12 08/07/2015 ALLY ALMEIDA MD Ot 722. 52 08/07/2015 ALLY ALMEIDA MD Ot 724. 6 10/18/2015 YU WEBSTER ONSHORE DIVER Ot V76.12 10/18/2015 ALLY ALMEIDA MD Ot 722. 52 10/18/2015 ALLY ALMEIDA MD Ot 724. 6 10/18/2015 ALLY ALMEIDA MD, Ot M47.816 SPONDYLOSIS W/O MYELOPATHY OR RADICULOPA 10/18/2015 ALLY ALMEIDA MD, Ot M51. 16 INTERVERTEBRAL DISC DISORDERS W RADICULO 10/18/2015 ALLY ALMEIDA MD, Ot M53. 3 SACROCOCCYGEAL DISORDERS, NOT ELSEWHERE 10/18/2015 ALLY ALMEIDA MD, Ot Z79.899 OTHER LONG-TERM (CURRENT) DRUG THERAPY 12/27/2015 ALLY ALMEIDA MD, Ot M47.816 SPONDYLOSIS W/O MYELOPATHY OR RADICULOPA 12/27/2015 ALLY ALMEIDA MD, Ot M51. 16 INTERVERTEBRAL DISC DISORDERS W RADICULO 12/27/2015 ALLY ALMEIDA MD Ot M53. 3 SACROCOCCYGEAL DISORDERS, NOT ELSEWHERE 12/27/2015 ALLY ALMEIDA MD Ot Z79.899 OTHER LONG-TERM (CURRENT) DRUG THERAPY 01/08/2016 ALLY ALMEIDA MD Ot M47.816 SPONDYLOSIS W/O MYELOPATHY OR RADICULOPA 01/08/2016 ALLY ALMEIDA MD, Ot M51. 16 INTERVERTEBRAL DISC DISORDERS W RADICULO 01/08/2016 ALLY ALMEIDA MD Ot M53. 3 SACROCOCCYGEAL DISORDERS, NOT ELSEWHERE 01/08/2016 ALLY ALMEIDA MD Ot Z79.899 OTHER FIELD TRAFFIC INVESTIGATOR (CURRENT) DRUG THERAPY 01/08/2016 ALLY ALMEIDA MD Ot M47.816 SPONDYLOSIS W/O MYELOPATHY OR RADICULOPA 01/08/2016 ALLY ALMEIDA MD, Ot M51. 16 INTERVERTEBRAL DISC DISORDERS W RADICULO 01/08/2016 ALLY ALMEIDA MD, Ot M53. 3 SACROCOCCYGEAL DISORDERS, NOT ELSEWHERE 01/08/2016 ALLY ALMEIDA MD, Ot Z79.899 OTHER LONG-TERM (CURRENT) DRUG THERAPY 02/14/2016 ALLY ALMEIDA MD Ot M47.816 SPONDYLOSIS W/O MYELOPATHY OR RADICULOPA 02/14/2016 ALLY ALMEIDA MD, Ot M51. 16 INTERVERTEBRAL DISC DISORDERS W RADICULO 02/14/2016 ALLY ALMEIDA MD, Ot M53. 3 SACROCOCCYGEAL DISORDERS, NOT ELSEWHERE 02/14/2016 ALLY ALMEIDA MD Ot Z79.899 OTHER FIELD TRAFFIC INVESTIGATOR (CURRENT) DRUG THERAPY 02/18/2016 CE ORELLANA MD Ot M54.16 RADICULOPATHY, LUMBAR REGION 02/19/2016 CE ORELLANA MD Ot M54.16 RADICULOPATHY, LUMBAR REGION 02/20/2016 ALLY ALMEIDA MD Ot M54. 5 LOW BACK PAIN 02/22/2016 DAVE BENAVIDEZ, UMAIR T Ot G89.29 OTHER CHRONIC PAIN 02/22/2016 DAVE BENAVIDEZ, UMAIR T Ot K59.00 CONSTIPATION, UNSPECIFIED 02/22/2016 DAVE BENAVIDEZ, UMAIR Roe Ot M48.06 SPINAL STENOSIS, LUMBAR REGION 02/22/2016 DAVE BENAVIDEZ, UMAIR Roe Ot M54.16 RADICULOPATHY, LUMBAR REGION 02/22/2016 DAVE BENAVIDEZ, UMAIR Roe Ot Z79.891 LONG-TERM (CURRENT) USE OF OPIATE ANALGE 02/24/2016 ALLY ALMEIDA MD Ot M54. 5 LOW BACK PAIN 02/24/2016 DAVE BENAVIDEZ, UMAIR Roe Ot G89.29 OTHER CHRONIC PAIN 02/24/2016 DAVE BENAVIDEZ, UMAIR Roe Ot K59.00 CONSTIPATION, UNSPECIFIED 02/24/2016 UMAIR ACOSTA MD Ot M48.06 SPINAL STENOSIS, LUMBAR REGION 02/24/2016 UMAIR ACOSTA MD Ot M54.16 RADICULOPATHY, LUMBAR REGION 02/24/2016 UMAIR ACOSTA MD Ot Z79.891 FIELD TRAFFIC INVESTIGATOR (CURRENT) USE OF OPIATE ANALGE 02/26/2016 ALLY ALMEIDA MD Ot M54. 5 LOW BACK PAIN 03/18/2016 ALLY ALMEIDA MD Ot M54. 5 LOW BACK PAIN 03/26/2016 ALLY ALMEIDA MD, Ot M54. 5 LOW BACK PAIN 03/26/2016 ALLY ALMEIDA MD Ot M54. 5 LOW BACK PAIN 04/23/2016 CARDENAS, JULIANO R [...] R CFNP Ot R31.9 HEMATURIA, UNSPECIFIED 10/08/2016 ALLY ALMEIDA MD Ot M54. 5 LOW BACK PAIN 10/08/2016 CARDENAS, JULIANO R CFNP Ot R30.0 DYSURIA 10/08/2016 CARDENAS, JULIANO R CFNP Ot R31.9 HEMATURIA, UNSPECIFIED 10/12/2016 ESTHER FAITH FREIGHT BRAKE OPERATOR Ot Z12.31 ENCNTR SCREEN MAMMOGRAM FOR MALIGNANT NE 10/12/2016 ESTHER FAITH FREIGHT BRAKE OPERATOR Ot Z12.31 ENCNTR SCREEN MAMMOGRAM FOR MALIGNANT NE 10/16/2016 ESTHER FAITH FREIGHT BRAKE OPERATOR Ot R92.8 OTH ABN AND INCONCLUSIVE FINDINGS ON DX 10/16/2016 ESTHER FAITH FREIGHT BRAKE OPERATOR Ot R92.8 OTH ABN AND INCONCLUSIVE FINDINGS ON DX 10/19/2016 ESTHER FAITH FREIGHT BRAKE OPERATOR Ot R92.8 OTH ABN AND INCONCLUSIVE FINDINGS ON DX 11/03/2016 ESTHER FAITH FREIGHT BRAKE OPERATOR Ot Z12.31 ENCNTR SCREEN MAMMOGRAM FOR MALIGNANT NE 11/06/2016 ESTHER FAITH FREIGHT BRAKE OPERATOR Ot Z12.31 ENCNTR SCREEN MAMMOGRAM FOR MALIGNANT NE 12/14/2016 ESTHER FAITH Maninder FREIGHT BRAKE OPERATOR Ot R92.8 OTH ABN AND INCONCLUSIVE FINDINGS ON DX 12/18/2016 ESTHER FAITH N FREIGHT BRAKE OPERATOR Ot R92.8 OTH ABN AND INCONCLUSIVE FINDINGS [...] FINDINGS ON DX 03/02/2018 JAYCOB BENAVIDEZ, SUGAR Alcocer Ot 729.5 PAIN IN LIMB 03/02/2018 JAYCOB BENAVIDEZ, SUGAR Alcocer Ot 780.79 OTH MALAISE FATIGUE 03/02/2018 JAYCOB BENAVIDEZ, SUGAR Alcocer Ot 715.94 OSTEOARTHROS NOS-HAND 03/02/2018 JAYCOB BENAVIDEZ, SUGAR Alcocer Ot 722.4 CERVICAL DISC DEGEN 03/02/2018 JAYCOB BENAVIDEZ, SUGAR Alcocer Ot 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 03/02/2018 JAYCOB BENAVIDEZ, SUGAR Alcocer Ot 722.52 LUMB/LUMBOSAC DISC DEGEN 03/02/2018 HELLWIG, YU E ONSHORE DIVER Ot V76.12 OTH SCREEN MAMMO-MALIGN NEOPLASM OF DMITRY 03/02/2018 YU WEBSTER E ONSHORE DIVER Ot 722.52 LUMB/LUMBOSAC DISC DEGEN 03/02/2018 YU WEBSTER E ONSHORE DIVER Ot V76.12 OTH SCREEN MAMMO-MALIGN NEOPLASM OF DMITRY 03/02/2018 DEGRAFFENREID-THORPE, ROOPA L Ot R92.8 OTH ABN AND INCONCLUSIVE FINDINGS ON DX 03/08/2018 DEGRAFFENREID-THORPE, ROOPA L Ot R92.8 OTH ABN AND INCONCLUSIVE FINDINGS ON DX 06/02/2018 Ot R92.1 MAMM OGRAPHIC CALCIFCN FOUND ON DIAGNOSTI 06/10/2018 Ot R92.1 MAMM OGRAPHIC CALCIFCN FOUND ON DIAGNOSTI 07/21/2018 KEISHA SHETH DO Ot Z01.8 18 ENCOUNTER FOR OTHER PREPROCEDURAL EXAMIN 07/27/2018 JUAN PABLO BENAVIDEZ, ALLY Galvez Ot M54. 5 LOW BACK PAIN 07/27/2018 JULIANO CARDENAS CFNP Ot R30.0 DYSURIA 07/27/2018 JULIANO CARDENAS CFNP Ot R31.9 HEMATURIA, UNSPECIFIED 07/27/2018 ESTHER FAITH FREIGHT BRAKE OPERATOR Ot Z12.31 ENCNTR SCREEN MAMMOGRAM FOR MALIGNANT NE 07/27/2018 ESTHER FAITH Ot R92.8 OTH ABN AND INCONCLUSIVE FINDINGS ON DX 07/27/2018 KEISHA SHETH DO Ot D12.0 BENIGN NEOPLASM OF CECUM 07/27/2018 KEISHA SHETH DO Ot G57.9 3 UNSPECIFIED MONONEUROPATHY OF BILATERAL 07/27/2018 KEISHA SHETH DO Ot I10 ESSENTIAL (PRIMARY) HYPERTENSION 07/27/2018 KEISHA SHETH DO Ot J44.9 CHRONIC OBSTRUCTIVE PULMONARY DISEASE, U 07/27/2018 KEISHA SHETH DO Ot K21.9 GASTRO-ESOPHAGEAL REFLUX DISEASE WITHOUT 07/27/2018 KEISHA SHETH DO Ot K29.7 0 GASTRITIS, UNSPECIFIED, WITHOUT BLEEDING 07/27/2018 KEISHA SHETH DO Ot K44.9 DIAPHRAGMATIC HERNIA WITHOUT OBSTRUCTION 07/27/2018 DELMAN DO, KEISHA B Ot K57.3 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 07/27/2018 AUBRIEADRYAN DO, KEISHA B Ot K64.8 OTHER HEMORRHOIDS 07/27/2018 DOMENIC DO, KEISHA B Ot Z12.1 1 ENCOUNTER FOR SCREENING FOR MALIGNANT NE 07/27/2018 DOMENIC DO KEISHA B Ot Z79.8 99 OTHER LONG-TERM (CURRENT) DRUG THERAPY 07/27/2018 DOMENIC DO KEISHA B Ot Z87.8 91 PERSONAL HISTORY OF NICOTINE DEPENDENCE 08/01/2018 AUBRIEADRYAN DO, KEISHA B Ot D12.0 BENIGN NEOPLASM OF CECUM 08/01/2018 DOMENIC DO, KEISHA B Ot G57.9 3 UNSPECIFIED MONONEUROPATHY OF BILATERAL 08/01/2018 DOMENIC DO, KEISHA B Ot I10 ESSENTIAL (PRIMARY) HYPERTENSION 08/01/2018 DOMENIC DO KEISHA B Ot J44.9 CHRONIC OBSTRUCTIVE PULMONARY DISEASE, U 08/01/2018 DOMENIC DE LA TORRE KEISHA B Ot K21.9 GASTRO-ESOPHAGEAL REFLUX DISEASE WITHOUT 08/01/2018 AUBRIEMAN DO, KEISHA B Ot K29.7 0 GASTRITIS, UNSPECIFIED, WITHOUT BLEEDING 08/01/2018 DOMENIC DO, KEISHA B Ot K44.9 DIAPHRAGMATIC HERNIA WITHOUT OBSTRUCTION 08/01/2018 DOMENIC DO, KEISHA B Ot K57.3 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 08/01/2018 DOMENIC DO, KEISHA B Ot K64.8 OTHER HEMORRHOIDS 08/01/2018 ALONDRA SHETH DOIC B Ot Z12.1 1 ENCOUNTER FOR SCREENING FOR MALIGNANT NE 08/01/2018 DOMENIC DO KEISHA B Ot Z79.8 99 OTHER LONG-TERM (CURRENT) DRUG THERAPY 08/01/2018 AUBRIEMAN DO, KEISHA B Ot Z87.8 91 PERSONAL HISTORY OF NICOTINE DEPENDENCE 08/10/2018 DOMENIC DO, KEISHA B Ot D12.0 BENIGN NEOPLASM OF CECUM 08/10/2018 DOMENIC DO, KEISHA B Ot G57.9 3 UNSPECIFIED MONONEUROPATHY OF BILATERAL 08/10/2018 DELADRYAN DO, KEISHA B Ot I10 ESSENTIAL (PRIMARY) HYPERTENSION 08/10/2018 DOMENIC DE LA TORRE KEISHA B Ot J44.9 CHRONIC OBSTRUCTIVE PULMONARY DISEASE, U 08/10/2018 KEISHA SHETH DO B Ot K21.9 GASTRO-ESOPHAGEAL REFLUX DISEASE WITHOUT 08/10/2018 ALONDRA SHETH DOIC B Ot K29.7 0 GASTRITIS, UNSPECIFIED, WITHOUT BLEEDING 08/10/2018 KEISHA SHETH DO B Ot K44.9 DIAPHRAGMATIC HERNIA WITHOUT OBSTRUCTION 08/10/2018 KEISHA SHETH DO B Ot K57.3 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 08/10/2018 ALONDRA SHETH DOARAMIS Benites Ot K64.8 OTHER HEMORRHOIDS 08/10/2018 KEISHA SHETH DO B Ot Z12.1 1 ENCOUNTER FOR SCREENING FOR MALIGNANT NE 08/10/2018 ALONDRA SHETH DOIC B Ot Z79.8 99 OTHER LONG-TERM (CURRENT) DRUG THERAPY 08/10/2018 DOMENIC DE LA TORRE KEISHA B Ot Z87.8 91 PERSONAL HISTORY OF NICOTINE DEPENDENCE 01/25/2019 ANTHONY CASTELLANO ONSHORE DIVER Ot R60 .0 LOCALIZED EDEMA 01/25/2019 ANTHONY CASTELLANO ONSHORE DIVER Ot R60 .0 LOCALIZED EDEMA 02/14/2019 ANTHONY CASTELLANO ONSHORE DIVER Ot R60 .0 LOCALIZED EDEMA 08/14/2019 KEISHA SHETH DO Ot Z01.8 18 ENCOUNTER FOR OTHER PREPROCEDURAL EXAMIN 08/15/2019 DOMENIC DE LA TORRE KEISHA B Ot Z01.8 18 ENCOUNTER FOR OTHER PREPROCEDURAL EXAMIN 08/18/2019 JUAN PABLO BENAVIDEZ, ALLY Galvez Ot M54. 5 LOW BACK PAIN 08/18/2019 JULIANO CARDENAS CFNP Ot R30.0 DYSURIA 08/18/2019 JULIANO CARDENAS CFNP Ot R31.9 HEMATURIA, UNSPECIFIED 08/18/2019 ESTHER FAITH FREIGHT BRAKE OPERATOR Ot Z12.31 ENCNTR SCREEN MAMMOGRAM FOR MALIGNANT NE 08/18/2019 ESTHER FAITH FREIGHT BRAKE OPERATOR Ot R92.8 OTH ABN AND INCONCLUSIVE FINDINGS ON DX 08/18/2019 ANTHONY CASTELLANO ONSHORE DIVER Ot R60 .0 LOCALIZED EDEMA 08/18/2019 ANTHONY CASTELLANO ONSHORE DIVER Ot Z12.31 ENCNTR SCREEN MAMMOGRAM FOR MALIGNANT NE 08/19/2019 ESTEBAN DO, DAVID L Ot E03.9 HYPOTHYROIDISM, UNSPECIFIED 08/19/2019 ESTEBAN DO, DAVID L Ot J44.9 CHRONIC OBSTRUCTIVE PULMONARY DISEASE, U 08/19/2019 ESTEBAN , DAVID L Ot K21.9 GASTRO-ESOPHAGEAL REFLUX DISEASE WITHOUT 08/19/2019 ESTEBAN , DAVID L Ot M25.5 11 PAIN IN RIGHT SHOULDER 08/19/2019 ESTEBAN DO, DAVID L Ot S46.911A STRAIN UNSP MUSC/FASC/TEND AT SHLDR/UP A 08/19/2019 ESTEBAN , DAVID L Ot X50.1XXA OVEREXERTION FROM PROLONGED STATIC OR AW 08/19/2019 ESTEBAN DO, DAVID L Ot Z79.5 1 LONG-TERM (CURRENT) USE OF INHALED STERO 08/19/2019 CARLITO , DAVID L Ot Z80.3 FAMILY HISTORY OF MALIGNANT NEOPLASM OF 08/19/2019 ESTEBAN , DAVID L Ot Z80.7 FAM HX OF MALIG NEOPLM OF LYMPHOID, SHANNA 08/19/2019 CARLITO , DAVID L Ot Z88.0 ALLERGY STATUS TO PENICILLIN 08/19/2019 CARLITO YNESDAVID L Ot Z88.6 ALLERGY STATUS TO ANALGESIC AGENT STATUS 08/19/2019 ESTEBAN , DAVID L Ot Z90.7 10 ACQUIRED ABSENCE OF BOTH CERVIX AND UTER 08/25/2019 KEISHA SHETH DO Ot E66.9 OBESITY, UNSPECIFIED 08/25/2019 KEISHA SHETH DO Ot J44.9 CHRONIC OBSTRUCTIVE PULMONARY DISEASE, U 08/25/2019 KEISHA SHETH DO B Ot K21.0 GASTRO-ESOPHAGEAL REFLUX DISEASE WITH ES 08/25/2019 KEISHA SHETH DO Ot K29.7 0 GASTRITIS, UNSPECIFIED, WITHOUT BLEEDING 08/25/2019 KEISHA SHETH DO B Ot K31.8 9 OTHER DISEASES OF STOMACH AND DUODENUM 08/25/2019 KEISHA SHETH DO B Ot K44.9 DIAPHRAGMATIC HERNIA WITHOUT OBSTRUCTION 08/25/2019 KEISHA SHETH DO Ot K57.3 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 08/25/2019 KEISHA SHETH DO B Ot K64.8 OTHER HEMORRHOIDS 08/25/2019 KEISHA SHETH DO B Ot M19.9 0 UNSPECIFIED OSTEOARTHRITIS, UNSPECIFIED 08/25/2019 KEISHA SHETH DO B Ot M51.0 6 INTERVERTEBRAL DISC DISORDERS WITH MYELO 08/25/2019 KEISHA SHETH DO Ot M51.1 6 INTERVERTEBRAL DISC DISORDERS W RADICULO 08/25/2019 KEISHA SHETH DO Ot M79.1 0 MYALGIA, UNSPECIFIED SITE 08/25/2019 KEISHA SHETH DO Ot R49.0 DYSPHONIA 08/25/2019 KEISHA SHETH DO Ot Z68.3 2 BODY MASS INDEX (BMI) 32.0-32.9, ADULT 08/25/2019 KEISHA SHETH DO Ot Z79.8 99 OTHER LONG-TERM (CURRENT) DRUG THERAPY 08/25/2019 KEISHA SHETH DO Ot Z83.3 FAMILY HISTORY OF DIABETES MELLITUS 08/25/2019 KEISHA SHETH DO Ot Z88.8 ALLERGY STATUS TO OTH DRUG/MEDS/BIOL SUB 08/25/2019 KEISHA SHETH DO Ot Z90.7 10 ACQUIRED ABSENCE OF BOTH CERVIX AND UTER Procedures Code Description [place] [address] ROUT INE VENIPUNCTURE 10/13/2012 43173 TEST [facility] 10/13/2012 54869 CCP ANTIBODY 10/13/2012 ANAANA DEVANTE ANALYZER (SCREEN) 10/13/2012 38314 CBC 10/14/2012 12120 URIC ACID 10/15/2012 70663 CRP 10/15/2012 28792 PROLACTIN 10/15/2012 13485 FSH 10/15/2012 39419 LH 10/15/2012 80741 TSH 10/15/2012 61398 RA FACTOR 10/15/2012 01263 ROUT INE VENIPUNCTURE 02/02/2013 40505 UA L ETTA DIP 02/02/2013 19019 XRAY CERVICAL SPINE, 2 OR 3 VIEWS 02/02/2013 51786 XRAY THORACIC SPINE 3 VIEWS 02/02/2013 23387 XRAY LUMBAR SPINE MIN 4 VIEWS 02/02/2013 41235 XRAY HAND CEE 2 VIEWS 02/02/2013 35151 MRI EXTREMITY JOINT, UPPER LEFT, W/O CONTRAST 02/02/2013 30114 CBC 02/02/2013 94730 CMP 02/02/2013 7059191 GF R CALC (RESULT ONLY) 02/02/2013 31112 CRP 02/02/2013 87663 CULT URE URINE 02/04/2013 37289 SKIN TAG REM 1-15 05/17/2013 07451 LESI ON DESTRUCTION 1-14 (BENIGN) 05/17/2013 77659 MAMM OGRAM, SCREENING 05/26/2013 10566 UA L ETTA DIP 07/10/2013 ORTHOPEDI ANALY RIGGINS 07/10/2013 50899 LIPI D PANEL 08/11/2013 76959 TSH 08/11/2013 97822 MRI SPINE (LUMBAR) W/O CONTRAST 12/06/2013 11387 DEXA BONE DENSITY, AXIAL 05/25/2014 GASTROENT ANÍBAL, GI 05/25/2014 NEUROLOGUMAIR MOREIRA 05/25/2014 NEUROLOGY Aníbal 05/25/2014 NeurologUmair Moreira 06/15/2014 52933 ROUT INE VENIPUNCTURE 08/06/2014 34036 CMP 08/06/2014 30086 LIPI D PANEL 08/06/2014 39271 TSH 08/06/2014 09372 CBC 08/06/2014 GENERAL S JOSSE YANG 08/06/2014 ORTHOPEDI RUPAL BRONSON 08/06/2014 46235 MAMM OGRAM, SCREENING 12/28/2014 PODIATRY B SUSAN CONLEY 12/28/2014 Results Test Result Range INTERPRETATION - 06/28/17 13:13 INTERPRETATION NRG FOLATE (FOLIC ACID) - 06/28/17 13:13 FOLATE, SERUM >24.0 ng/mL NRG CBC - 07/04/18 10:00 WHITE BLOOD CELL COUNT 7.0 Thousand/uL 3 .8-10.8 RED BLOOD CELL COUNT 5.43 Million/uL 3.8 0-5.10 HEMOGLOBIN 15.8 g/dL 11.7-15.5 HEMATOCRIT 46.9 % 35.0-45.0 MCV 86.4 fL 80.0-100.0 MCH 29.1 pg 27.0-33.0 MCHC 33.7 g/dL 32.0-36.0 RDW 13.6 % 11.0-15.0 PLATELET COUNT 269 Thousand/uL 140-400 MPV 9.5 fL 7.5-12.5 ABSOLUTE NEUTROPHILS 4375 cells/uL 1500- 7800 ABSOLUTE LYMPHOCYTES 2093 cells/uL 850-3 900 ABSOLUTE MONOCYTES 378 cells/uL 200-950 ABSOLUTE EOSINOPHILS 91 cells/uL 15-500 ABSOLUTE BASOPHILS 63 cells/uL 0-200 NEUTROPHILS 62.5 % NRG LYMPHOCYTES 29.9 % NRG MONOCYTES 5.4 % NRG EOSINOPHILS 1.3 % NRG BASOPHILS 0.9 % NRG TSH - 07/04/18 10:00 TSH 0.20 mIU/L 0.40-4.50 CULTURE, URINE - 07/21/19 15:50 CULTURE, URINE, ROUTINE SEE NOTE NRG Encounters ACCT No. Visit Date/Time Discharge Status Pt. Type Provider Facility Loc./Unit Complaint [id number] 08/11/2019 10:40:00 08/11/2019 23:59: 59 CLS Outpatient ANTHONY CASTELLANO [facility] [id number] 07/21/2019 14:00:00 Document Registration [id number] 07/04/2018 09:40:00 Document Registration [id number] 06/28/2017 11:20:00 Document Registration [id number] 12/28/2014 09:59:00 12/28/2014 23:59: 59 CLS Outpatient JACLYN CRUZ DO [id number] 10/10/2014 11:03:00 10/10/2014 23:59: 59 [facility] [id number] 08/06/2014 10:50:00 08/06/2014 23:59: 59 CLS Outpatient YU WEBSTER APRN [id number] 05/25/2014 10:07:00 05/25/2014 23:59: 59 CLS Outpatient YU WEBSTER APRN [id number] 12/20/2013 13:50:00 12/20/2013 23:59: 59 [id number] 12/06/2013 10:56:00 12/06/2013 23:59: 59 CLS Outpatient JACLYN CRUZ DO [id number] 08/11/2013 10:39:00 08/11/2013 23:59: 59 CLS Outpatient YU WEBSTER APRN [id number] 07/20/2013 09:28:00 07/20/2013 23:59: 59 CLS Outpatient JACLYN CRUZ DO [id number] 07/10/2013 13:44:00 07/10/2013 23:59: 59 CLS Outpatient JACLYN CRUZ DO [id number] 07/10/2013 13:44:00 07/10/2013 23:59: 59 CLS Outpatient JACLYN CRUZ DO [id number] 06/07/2013 11:00:00 06/07/2013 23:59: 59 CLS Outpatient JACLYN CRUZ DO [id number] 05/23/2013 09:26:00 05/23/2013 23:59: 59 CLS Outpatient JACLYN CRUZ DO [id number] 05/23/2013 09:26:00 05/23/2013 23:59: 59 CLS Outpatient CRUZ JACLYN DE LA TORRE [id number] 10/27/2012 14:01:00 10/27/2012 23:59: 59 CLS Outpatient SUGAR DEVRIES MD [id number] 10/13/2012 15:17:00 10/13/2012 23:59: 59 CLS Outpatient SUGAR DEVRIES MD [id number] 09/28/2012 09:32:00 09/28/2012 23:59: 59 [place] [id number] 2012 14:17:00 2012 23:59:5 9 CLS Outpatient [id number] 05/17/2013 09:49:00 Document Registration [id number] 05/01/2013 10:28:00 Document Registration [id number] 03/07/2013 09:48:00 Document Registration [id number] 02/02/2013 10:50:00 Document Registration [id number] 12/02/2012 00:00:00 Document Registration [id number] 08/21/2019 09:17:00 13:15:00 DIS Outpatient KEISHA SHETH DO [facility] ENDO HX POLYPS/DYSPHASIA/JIMBO RSENESS [id number] 08/18/2019 08:11:00 23:59:59 CLS Outpatient ANTHONY CASTELLANO APRN [facility] RAD SCREENING [id number] 08/14/2019 05:37:00 13:58:00 DIS Outpatient KEISHA SHETH DO [facility] PREOP COLONOSCOPY/EGD [id number] 08/14/2019 09:01:00 11:13:00 DIS Outpatient DAVID ESTEBAN DO [facility] ER R SHOULDER PAIN [id number] 01/25/2019 14:15:00 23:59:59 CLS Outpatient ANTHONY CASTELLANO ONSHORE DIVER [facility] RAD EDEMA [id number] 09/19/2018 16:26:00 019 23:59:59 CLS Preadmit GRAY ANTHONY Baeza ONSHORE DIVER [facility] RAD MIDLINE LOW BACK PAIN [id number] 07/27/2018 07:30:00 018 11:05:00 DIS Outpatient KEISHA SHETH DO [facility] ENDO SCREENING/DYSPAGIA [id number] 07/20/2018 05:40:00 018 16:00:00 DIS Outpatient KEISHA SHETH DO [facility] PREOP COLONOSCOPY/EGD [id number] 11/10/2017 13:51:00 018 23:59:59 CLS Outpatient ROOPA RAMOS [facility] RAD [id number] HX OF A BN MAMMO [id number] 10/16/2016 07:44:00 017 23:59:59 CLS Outpatient ESTHER FAITH FUNCTIONAL SUPPORT ANALYST [facility] RAD ABNORMAL MAMMO [id number] 10/08/2016 12:49:00 017 23:59:59 CLS Outpatient ESTHER FAITH FUNCTIONAL SUPPORT ANALYST [facility] RAD SCREENING [id number] 04/22/2016 08:41:00 016 23:59:59 CLS Outpatient JULIANO CARDENAS CFNP [facility] RAD HEMATURIA,DYSUR IA [id number] 02/22/2016 09:11:00 016 11:25:00 DIS Emergency UMAIR ACOSTA MD [facility] ER BACK PAIN [id number] 02/20/2016 17:45:00 016 23:59:59 CLS Outpatient ALLY ALMEIDA MD [facility] RAD LOW BACK PAIN [id number] 02/18/2016 09:38:00 016 14:05:00 DIS Emergency CE ORELLANA MD [facility] ER BACK/LEFT HIP PAIN [id number] 02/14/2016 10:24:00 016 11:10:00 DIS Outpatient ALLY ALMEIDA MD [facility] CARD DISC DISORDER, SACROCCO CGEAL DISORDER [id number] 12/27/2015 09:00:00 016 09:51:00 DIS Outpatient ALLY ALMEIDA MD [facility] CARD DISC DISORDER W/RADICULOPATHY,SACROCOCCYGEAL DISOR [id number] 10/18/2015 10:04:00 016 11:06:00 DIS Outpatient ALLY ALMEIDA MD [facility] 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 [id number] 07/26/2015 11:08:00 12:32:00 DIS Outpatient ALLY ALMEIDA MD [facility] CARD [id number] 07/23/2015 04:31:00 11:58:00 DIS Outpatient SUSAN POLLOCK MD [facility] CATH CHEST PAIN [id number] 07/22/2015 15:34:00 015 19:46:00 DIS Emergency KIM ZAMORANO ONSHORE DIVER [facility] ER [id number] 05/13/2015 11:43:00 015 23:59:59 CLS Outpatient ALLY ALMEIDA MD [facility] CARD [id number] 01/01/2015 10:07:00 015 23:59:59 CLS Outpatient YU WEBSTER ONSHORE DIVER [facility] RAD SCREENING [id number] 09/28/2014 08:15:00 015 09:25:00 DIS Outpatient ALLY ALMEIDA MD [facility] CARD DDD [id number] 12/14/2013 13:05:00 014 23:59:59 CLS Outpatient YU WEBSTER ONSHORE DIVER [facility] RAD INCREASED LUMBA GO [id number] 06/27/2013 10:29:00 23:59:59 CLS Outpatient YU WEBSTER APRN [facility] RAD ROUTINE [id number] 03/07/2013 12:43:00 23:59:59 CLS Outpatient SUGAR DEVRIES MD [facility] RAD PAIN AND WEAKNESS, HX O F ROTATOR CUFF REPAIR [id number] 02/13/2013 12:28:00 23:59:59 CLS Outpatient SUGAR DEVRIES MD [facility] RAD NECK STIFFNESS AND PAIN ,BACK PAIN,HAND PAIN [id number] 04/22/2018 12:55:00 Document Registration [id number] 07/23/2015 04:34:00 Document Registration [id number] 11/05/2014 12:41:00 Document Registration
== END 2019-08-14 11:13 | disposition home or self-care (01) ==
LOC: EDUNIT# 09:01 → ER 09:01
DX: S46.911A Strain of unspecified muscle, fascia and tendon at shoulder and upper arm level, right arm, initial encounter (principal); J44.9 Chronic obstructive pulmonary disease, unspecified; K21.9 Gastro-esophageal reflux disease without esophagitis; E03.9 Hypothyroidism, unspecified; Z80.3 Family history of malignant neoplasm of breast; Z80.7 Family history of other malignant neoplasms of lymphoid, hematopoietic and related tissues; Z88.0 Allergy status to penicillin; Z88.6 Allergy status to analgesic agent; Z79.51 Long term (current) use of inhaled steroids; Z90.710 Acquired absence of both cervix and uterus; X50.1XXA Overexertion from prolonged static or awkward postures, initial encounter
CPT/HCPCS: 73030

== ENCOUNTER → 2019-08-18 | Outpatient (CLI) | payer MEDICARE, OTHER ==
[~2019-08-18] MED LIST changes: +CETI10TA17 PO; +FESO8TAB PO; +MELO7.5T46 PO; +OMEP-280 PO; -OMEP20CA13 PO; +TRIM100T PO
--- NOTE | 2019-08-21 08:58 | Diagnostic Imaging Report ---
INDICATION: Screening The current study was also evaluated with a Computer Aided Detection (CAD) system. 3-D Tomographic imaging was also performed. Comparison made with prior examination of 04/22/2018, 11/10/2017, 10/08/2016 and 01/01/2015. FINDINGS: There are scattered fibroglandular densities bilaterally. There are a few benign type calcifications. There is no dominant mass, spiculated lesion or suspicious calcification identified. The skin and nipples and axilla are unremarkable. IMPRESSION: Category 2 benign. ACR BI-RADS Category 2: Benign findings. Result letter will be mailed to the patient. Note: At least 10% of breast cancer is not imaged by mammography. Dictated by: Dictated on workstation # [id number]
== END ==
LOC: RAD 08:11
PROVIDERS: ATTEND Registered Nurse
DX: Z12.31 Encounter for screening mammogram for malignant neoplasm of breast (principal)
CPT/HCPCS: 77067

== ENCOUNTER 2019-08-21 09:17 | Day surgery (SDC) | payer MEDICARE, OTHER ==
[~2019-08-21] VITALS: Ht 154.9 cm; Wt 77.7 kg
[2019-08-21] VITALS (9 sets, daily range): BP systolic 113–148; BP diastolic 63–77
[2019-08-21] MEDS ORDERED: LACTATED RINGERS 1,000 ML IV STA (09:24)
[2019-08-21] MEDS ORDERED: HURRICAINE EXT TUBE (BENZOCAINE) XX PRN (09:30)
[2019-08-21] MEDS ORDERED: LACTATED RINGERS 1,000 ML IV ONE (09:36)
--- NOTE | 2019-08-21 10:15 | Progress Note-Pre Operative ---
Pre-Operative Progress Note H&P Reviewed The H&P was reviewed, patient examined and no changes noted. Time Seen by Provider: 10:09 Date H&P Reviewed: Aug 21, 2019 Time H&P Reviewed: 10:06 Pre-Operative Diagnosis: Dysphagia, Dysphonia, Gastritis, Hx of polyps KEISHA SHETH DO Aug 21, 2019 10:15 POS
[2019-08-21] MEDS ORDERED: FAMOTIDINE 20MG/2ML IV (PEPCID) ONE (10:29)
[2019-08-21] MEDS ORDERED: FAMOTIDINE 20MG/2ML IV (PEPCID) IVP ONE (10:45)
[2019-08-21] MEDS ORDERED: PROPOFOL INJECTION 50 ML IV ONE ×2 (11:15→11:49)
[2019-08-21] MEDS ORDERED: MIDAZOLAM 2 MG/2 ML (VERSED) VIAL ONE (11:15)
--- NOTE | 2019-08-21 12:42 | Progress Note-Post Operative ---
Post-Operative Progess Note Surgeon (s)/Interventional Radiology Tech (s) Surgeon KEISHA SHETH DO Interventional Radiology Tech: Booker Horton MSIII Pre-Operative Diagnosis Dysphagia, Dysphonia, Gastritis, Hx of polyps Post-Operative Diagnosis Gastritis Hiatal Hernia Diverticula Int hemorrhoids Procedure & Operative Findings Date of Procedure 08/21/19 Procedure Performed/Findings EGD with bx Colon Anesthesia Type IV sedation by CLINICAL INSTRUCTOR Estimated Blood Loss Estimated blood loss (mL): scant Specimens/Packing Specimens Removed antral bx body of stomach GE jxn bx KEISHA SHETH DO Aug 21, 2019 12:42 POS
--- NOTE | 2019-08-21 13:02 | Endoscopy Discharge Instruct ---
Endo Procedure/Findings Findings 1.: Hiatal Hernia, Gastritis 2.: Diverticulosis 3.: Internal Hemorrhoids Discharge Instructions - Activity: You might feel a little sleepy until tomorrow. This is due to the medicine you received to relax you. Until tomorrow, you should: NOT drive a car, operate machinery or power tools. NOT drink any alcoholic beverages. NOT make any important decisions or sign importortant papers. Do not return to work until tomorrow, unless otherwise instructed. Resume previous activities tomorrow. Diet: Start by taking liquids. If you tolerate liquids, advance to solid food. make an appt for 2 weeks 1.: Colonscopy in 5 years, EGD in 3 years Notify Physician - If you experience excessive bleeding, unusual abdominal pain, fever, or chest pain, contact your doctor immediately. KEISHA SHETH DO Aug 21, 2019 13:02 POS
--- NOTE | 2019-08-21 14:13 | Anesthesia-General Post-Op ---
MAC Patient Condition Mental Status/LOC: Same as Preop Cardiovascular: Satisfactory Nausea/Vomiting: Absent Respiratory: Satisfactory Pain: Controlled Complications: Absent Post Op Complications Complications None Follow Up Care/Instructions Patient Instructions None needed. Anesthesiology Discharge Order Discharge Order Patient is doing well, no complaints, stable vital signs, no apparent adverse anesthesia problems. No complications reported per nursing. MIRIAM ALANIS CRNA Aug 21, 2019 14:13 POS
--- NOTE | 2019-08-22 04:04 | OPERATIVE REPORT ---
DATE OF SERVICE: 08/21/2019 PREOPERATIVE DIAGNOSES: Dysphagia, dysphonia, gastritis and history of polyps. POSTOPERATIVE DIAGNOSES: Gastritis, hiatal hernia, diverticula, and internal hemorrhoids. PROCEDURES: 1. EGD with biopsy. 2. Colonoscopy. SURGEON: Jorge Cruz DO. ANESTHESIA: IV sedation by REVENUE FIELD AUDITOR. SPECIMEN: Biopsy from the antrum, biopsy of body of stomach, and biopsy from GE junction. BLOOD LOSS: Scant. FLUIDS: Per anesthesia. POSTOPERATIVE CONDITION: Stable. INDICATION FOR PROCEDURE: The patient is a 69-year-old female who has been complaining of some dysphagia as well as dysphonia. She has a history of gastritis. She also has history of polyps, needed EGD and colonoscopy. FINDINGS: The patient had some gastritis and a hiatal hernia, looked at the cords, they looked normal. She did have some creeping up of the GE junction. She also had a very large diverticula and some internal hemorrhoids. PROCEDURE NOTE: After informed consent was obtained, the patient was brought to the endoscopy suite, placed in the bed in the left lateral decubitus position. She was administered IV sedation by the REVENUE FIELD AUDITOR who then monitored her vitals the entire time, heart rate, blood pressure and pulse ox. Started with the EGD, placed the scope down the mouth through the esophagus into the stomach. Upon entry, noted the antrum looked a little bit inflamed, took a picture; then pushed into the duodenum. Duodenum looked okay, took a picture. Pulled back, retroflexed the scope, saw a small hiatal hernia and the rest of the body of stomach also looked a little bit inflamed, elected to do a biopsy in the antrum and then pulled back and did a biopsy of body of stomach and then into the GE junction, did a biopsy of the GE junction. Suctioned the air out of the stomach and pulled the scope up the esophagus and out of the mouth and on the way out, took a picture of the vocal cords, they looked good. I then switched gloves, switched cameras, went down below and started the colonoscopy. Started pushing in, the patient had a very large diverticula, able to push in to about 150 cm got to the cecum and then slowly withdrew the scope insufflating to look circumferentially at the gallagher looking the cecum, up the ascending colon to the hepatic flexure, then down the transverse colon, the splenic flexure, into the descending colon down into the sigmoid and finally into the rectum, retroflexed in rectal vault, saw some minimal internal hemorrhoids, took a picture of this and then removed the scope. The patient was recovered in endoscopy suite, tolerated the procedure well. Job ID: [id number] DocumentID: [id number] Dictated Date: 08/21/2019 18:41:55 Refrigerating Oiler Date: 08/22/2019 04:03:13 Dictated By: DO MARISA PAUL
== END 2019-08-21 13:15 | disposition home or self-care (01) ==
LOC: ENDO 09:17
PROVIDERS: ATTEND Surgery
DX: K29.70 Gastritis, unspecified, without bleeding (principal); K21.0 Gastro-esophageal reflux disease with esophagitis; K31.89 Other diseases of stomach and duodenum; K44.9 Diaphragmatic hernia without obstruction or gangrene; K57.30 Diverticulosis of large intestine without perforation or abscess without bleeding; K64.8 Other hemorrhoids; J44.9 Chronic obstructive pulmonary disease, unspecified; E66.9 Obesity, unspecified; M19.90 Unspecified osteoarthritis, unspecified site; M51.06 Intervertebral disc disorders with myelopathy, lumbar region; M51.16 Intervertebral disc disorders with radiculopathy, lumbar region; M79.10 Myalgia, unspecified site; R49.0 Dysphonia; Z68.32 Body mass index [BMI] 32.0-32.9, adult; Z90.710 Acquired absence of both cervix and uterus; Z79.899 Other long term (current) drug therapy; Z88.8 Allergy status to other drugs, medicaments and biological substances; Z83.3 Family history of diabetes mellitus
CPT/HCPCS: 88305

== ENCOUNTER → 2019-09-18 | Outpatient (CLI) | payer MEDICARE, OTHER ==
[~2019-09-18] MED LIST changes: -OMEP-280 PO; +OMEP20CA13 PO
--- NOTE | 2019-09-18 10:04 | Diagnostic Imaging Report ---
INDICATION: Dysphagia. Study was performed in conjunction with speech pathology. Video fluoroscopy was performed during swallowing of barium in multiple consistencies. Patient ingested thin barium as well as puree and mechanical soft consistency. Patient also ingested ground meat and cracker consistency. A total of 1 minute 10 seconds of fluoroscopic time was utilized. Oral phase unremarkable. There is normal epiglottic tilt and laryngeal elevation. No penetration or aspiration was observed. No significant vallecular or piriform sinus residue is noted. IMPRESSION: Unremarkable modified barium swallow. Dictated by: Dictated on workstation # [id number]
== END ==
LOC: RAD 09:22
PROVIDERS: ATTEND Surgery
DX: R13.10 Dysphagia, unspecified (principal)
CPT/HCPCS: 74230

== ENCOUNTER → 2020-05-09 | Outpatient (CLI) | payer MEDICARE, OTHER ==
[~2020-05-09] MED LIST changes: -OMEP20CA13 PO; +OMEP20CA18 PO
== END ==
LOC: CARD 14:30
PROVIDERS: ATTEND Internal Medicine Cardiovascular Disease
DX: I10 Essential (primary) hypertension (principal); E78.2 Mixed hyperlipidemia; R07.89 Other chest pain; R13.10 Dysphagia, unspecified
CPT/HCPCS: 93306

== ENCOUNTER → 2020-05-22 | Outpatient (CLI) | payer MEDICARE, OTHER ==
[~2020-05-22] VITALS: Ht 154 cm; Wt 73.0 kg
[~2020-05-22] MED LIST changes: +CATHETER FLUSH 10 ML SYR IV PRN; +REGADENOSON 0.4 MG/5 ML SYR (LEXISCAN) IV ONE
[2020-05-22 09:23] VITALS: BP 129/76
--- NOTE | 2020-05-22 14:16 | Cardiology Stress Test Report ---
Stress Test Report Date of Procedure/Referring: Date of Procedure: May 22, 2020 PCP Thao Hatch MD Admitting Physician Kaila Ahmadi DO Indications: Chest pain Baseline Heart Rate: 77 Baseline Blood Pressure: Blood Pressure Systolic: 129 Blood Pressure Diastolic: 76 Baseline Vitals Vital Signs Date Time Temp Pulse Resp B/P (MAP) Pulse Ox O2 Delivery O2 Flow Rate FiO2 05/22/20 09:23 77 129/76 (93) 98 Baseline EKG: Baseline EKG: normal sinus rhythm Summary After explaining the procedure to the patient, she signed a consent and then brought to the stress nuclear laboratory. Patient received 0.4 mg Lexiscan for stress test, ECG, heart rate and blood pressure were monitored continuously. Resting and stress dose of radio tracer were injected, imaging was acquired and reviewed in short axis, horizontal long axis and vertical long axis views. TID: 1.07 SSS: 8 SDS: 0 EF: 64 1. Patient tolerated Lexiscan well 2. Breast attenuation with no significant ischemia or infarction on SPECT images 3. Normal left ventricular size, EF 60 percent THAO HATHC MD May 22, 2020 14:16
== END ==
LOC: CARD 08:03
PROVIDERS: ATTEND Internal Medicine Cardiovascular Disease
DX: I10 Essential (primary) hypertension (principal); E78.2 Mixed hyperlipidemia; N64.89 Other specified disorders of breast; R13.10 Dysphagia, unspecified
CPT/HCPCS: 78452; 93017; A9502

== ENCOUNTER → 2020-06-19 | Outpatient (CLI) | payer MEDICARE, OTHER ==
[~2020-06-19] MED LIST changes: +HOLD METFORMIN - RECEIVED CONTRAST 20 ML VIAL IV SCH; +IOHEXOL 350 MG/ML 100 ML (OMNIPAQUE 350) VIAL IV ONE; +NS 100 ML (IVPB) BAG IV ONE; -REGADENOSON 0.4 MG/5 ML SYR (LEXISCAN) IV ONE
[2020-06-19 10:40] LABS: CREATININE SERUM 0.75 MG/DL (0.60-1.30); GFR ESTIMATED > 60
[2020-06-19 10:41] LABS: BUN/CREATININE RATIO 23
--- NOTE | 2020-06-19 12:34 | Diagnostic Imaging Report ---
INDICATION: Left sided neck pain, chest pain, cough, shortness of air, left vocal cord paralysis. COMPARISON: No relevant comparisons. TECHNIQUE: Intravenous contrast was administered and a CT neck and chest was performed with multiplanar reconstructions. FINDINGS: NECK: There is some medialization of the left true vocal cord. Given the provided history, this is presumed to reflect changes of known vocal cord paralysis. No identifiable soft tissue mass. The epiglottis and aryepiglottic folds appear unremarkable. The prevertebral and retropharyngeal spaces are normal. No cervical lymphadenopathy. There is some mild cervical spondylosis without resultant canal stenosis. No fracture or bony destructive process. The cervical lymph node chains appear normal. No lymphadenopathy. The partially visualized mastoid air cells and paranasal sinuses appear nonacute. There is carotid atherosclerotic vascular disease. No fluid collection. CHEST: There is no mediastinal mass or lymphadenopathy. The aorta shows mild scattered calcified plaque without aneurysm or stenosis. There are more substantial three-vessel coronary arterial atherosclerotic calcifications. No effusion or pneumothorax. No lymphadenopathy. The lungs are clear. No mass or suspicious nodule. No chest effusion. The upper abdomen is nonacute. IMPRESSION: NECK: Some medialization of the left vocal cord may reflect asymmetric phonation or manifestation of the reported vocal cord paralysis. No mass or lymphadenopathy and no fluid collection. CHEST: There are coronary and aortic atherosclerotic vascular calcifications with no mass or acute appearing abnormality. Dictated by: Dictated on workstation # [id number]
== END ==
LOC: RAD 11:15
PROVIDERS: ATTEND Otolaryngology Otolaryngology/Facial Plastic Surgery
DX: J38.01 Paralysis of vocal cords and larynx, unilateral (principal); I25.10 Atherosclerotic heart disease of native coronary artery without angina pectoris; I70.0 Atherosclerosis of aorta
CPT/HCPCS: 36415; 70491; 71260; 82565; 84520

== ENCOUNTER 2020-08-15 06:44 | Outpatient (RCR) | payer MEDICARE, OTHER ==
[~2020-08-15] VITALS: Ht 152.4 cm; Wt 71.8 kg
[~2020-08-15 06:44] MED LIST changes: -ALEN70TA5 PO; +ALEN70TA69 PO; -CATHETER FLUSH 10 ML SYR IV PRN; -HOLD METFORMIN - RECEIVED CONTRAST 20 ML VIAL IV SCH; -IOHEXOL 350 MG/ML 100 ML (OMNIPAQUE 350) VIAL IV ONE; -NS 100 ML (IVPB) BAG IV ONE; +[UNRECOGNIZED DRUG - OTHER] PO
== END 2020-08-15 09:45 | disposition home or self-care (01) ==
LOC: PREOP 06:44
PROVIDERS: ATTEND Surgery
DX: Z01.812 Encounter for preprocedural laboratory examination (principal); K29.70 Gastritis, unspecified, without bleeding; Z20.828 Contact with and (suspected) exposure to other viral communicable diseases
CPT/HCPCS: 87635

== ENCOUNTER 2020-08-19 07:17 | Day surgery (SDC) | payer MEDICARE, OTHER ==
[~2020-08-19] VITALS: Ht 152.4 cm; Wt 72.0 kg
[2020-08-19] VITALS (9 sets, daily range): BP systolic 102–147; BP diastolic 55–71
[2020-08-19] MEDS ORDERED: LACTATED RINGERS 1,000 ML IV ONE (07:23)
[2020-08-19] MEDS ORDERED: LACTATED RINGERS 1,000 ML IV STA (07:30)
[2020-08-19] MEDS ORDERED: HURRICAINE EXT TUBE (BENZOCAINE) XX PRN (07:30)
[2020-08-19] MEDS ORDERED: PROPOFOL INJECTION 50 ML IV ONE (07:31)
[2020-08-19] MEDS ORDERED: MIDAZOLAM 2 MG/2 ML (VERSED) VIAL ONE (07:31)
--- NOTE | 2020-08-19 08:11 | Progress Note-Pre Operative ---
Pre-Operative Progress Note H&P Reviewed The H&P was reviewed, patient examined and no changes noted. Time Seen by Provider: 08:04 Date H&P Reviewed: Aug 19, 2020 Time H&P Reviewed: 08:02 Pre-Operative Diagnosis: Dsyphonia, Gastritis KEISHA SHETH DO Aug 19, 2020 08:11
[2020-08-19] MEDS ORDERED: HURRICAINE EXT TUBE (BENZOCAINE) ONE (08:28)
--- NOTE | 2020-08-19 08:56 | Progress Note-Post Operative ---
Post-Operative Progess Note Surgeon (s)/Blending Line Attendant (s) Surgeon KEISHA SHETH DO Blending Line Attendant: none Pre-Operative Diagnosis Dsyphonia, Gastritis Post-Operative Diagnosis same plus Hiatal Hernia Procedure & Operative Findings Date of Procedure 08/19/20 Procedure Performed/Findings EGD with bx Anesthesia Type IV sedation by WORM SORTER Estimated Blood Loss Estimated blood loss (mL): scant Specimens/Packing Specimens Removed antral bx body of stomach bx GE jxn bx KEISHA SHETH DO Aug 19, 2020 08:56
--- NOTE | 2020-08-19 08:57 | Endoscopy Discharge Instruct ---
Endo Procedure/Findings Findings 1.: Gastritis 2.: Hiatal Hernia Discharge Instructions - Activity: You might feel a little sleepy until tomorrow. This is due to the medicine you received to relax you. Until tomorrow, you should: NOT drive a car, operate machinery or power tools. NOT drink any alcoholic beverages. NOT make any important decisions or sign importortant papers. Do not return to work until tomorrow, unless otherwise instructed. Resume previous activities tomorrow. Diet: Start by taking liquids. If you tolerate liquids, advance to solid food. 1.: EGD in 1 year Notify Physician - If you experience excessive bleeding, unusual abdominal pain, fever, or chest pain, contact your doctor immediately. KEISHA SHETH DO Aug 19, 2020 08:57
--- NOTE | 2020-08-19 10:16 | Anesthesia-General Post-Op ---
MAC Patient Condition Mental Status/LOC: Same as Preop Cardiovascular: Satisfactory Nausea/Vomiting: Absent Respiratory: Satisfactory Pain: Controlled Complications: Absent Post Op Complications Complications None Follow Up Care/Instructions Patient Instructions None needed. Anesthesiology Discharge Order Discharge Order Patient is doing well, no complaints, stable vital signs, no apparent adverse anesthesia problems. No complications reported per nursing. ANALY MASON CRNA Aug 19, 2020 10:16
--- NOTE | 2020-08-20 14:20 | OPERATIVE REPORT ---
DATE OF SERVICE: 08/19/2020 PREOPERATIVE DIAGNOSES: Dysphonia and gastritis. POSTOPERATIVE DIAGNOSES: Dysphonia, gastritis, small hiatal hernia and questionable some gastroparesis. PROCEDURE: EGD with biopsy. SURGEON: Jorge Cruz DO OFFICE EQUIPMENT TECHNICIAN: None. ANESTHESIA: IV sedation by the DAIRY LAB TECHNICIAN. SPECIMEN: Biopsy from the antrum, biopsy of body of stomach, biopsy from the GE junction. BLOOD LOSS: Scant. FLUIDS: Per anesthesia. POSTOPERATIVE CONDITION: Stable. INDICATION FOR PROCEDURE: The patient is a 70-year-old female, who is having increasing dysphonia, worked up by ENT, nothing was found. She wanted to have a repeat EGD. FINDINGS: The patient had normal-appearing cords, had some retained food in the stomach, which may indicate with some gastroparesis, had some mild gastritis and a small hiatal hernia. PROCEDURE NOTE: After informed consent was obtained, the patient was brought to the endoscopy suite, placed in bed in left lateral decubitus position. She was administered IV sedation by the DAIRY LAB TECHNICIAN, who then monitored her vitals the entire time, heart rate, blood pressure and pulse ox and the scope was inserted down the mouth all the way down towards the esophagus, took pictures of the vocal cords, they looked fine. There is no irritation or nodules on them then pushed pass this down the esophagus into the stomach, noted some fluid in the stomach, took a picture of this. There are no real problems in the esophagus. Had taken pictures on the way down as well, went towards the pylorus and then into the duodenum. Duodenum looked fine, took a picture and then backed up into the antrum and did a biopsy of the antrum. Retroflexed the scope, saw some more what looked like gastritis, did another biopsy of the antrum, also saw small hiatal hernia, took a picture of this and then pulled the scope up into the GE junction, did a biopsy of the GE junction, then suctioned all the air out of the stomach and then pulled the scope up the esophagus, took another picture of the vocal cords, they looked fine and then pulled the scope out. The patient tolerated the procedure. She was recovered in endoscopy suite. Job ID: [id number] DocumentID: [id number] Dictated Date: 08/20/2020 10:00:48 Still Operator Whiskey Date: 08/20/2020 14:20:12 Dictated By: JORGE CRUZ DO
== END 2020-08-19 09:30 | disposition home or self-care (01) ==
LOC: ENDO 07:17
PROVIDERS: ATTEND Surgery
DX: K29.50 Unspecified chronic gastritis without bleeding (principal); Z88.5 Allergy status to narcotic agent; K44.9 Diaphragmatic hernia without obstruction or gangrene; I10 Essential (primary) hypertension; J44.9 Chronic obstructive pulmonary disease, unspecified; E03.9 Hypothyroidism, unspecified; M19.90 Unspecified osteoarthritis, unspecified site; G89.29 Other chronic pain; M54.5 Low back pain; C18.9 Malignant neoplasm of colon, unspecified; K64.8 Other hemorrhoids; M51.36 Other intervertebral disc degeneration, lumbar region; M47.817 Spondylosis without myelopathy or radiculopathy, lumbosacral region; K21.00 Gastro-esophageal reflux disease with esophagitis, without bleeding; E66.9 Obesity, unspecified; Z68.31 Body mass index [BMI] 31.0-31.9, adult; Z79.51 Long term (current) use of inhaled steroids; Z79.899 Other long term (current) drug therapy; Z80.9 Family history of malignant neoplasm, unspecified; Z83.3 Family history of diabetes mellitus
CPT/HCPCS: 88305; 88342

== ENCOUNTER → 2021-03-11 | Outpatient (CLI) | payer MEDICARE, OTHER ==
[~2021-03-11] MED LIST changes: -ALEN70TA69 PO; +ALEN70TA80 PO; -OXYC-471 PO; +OXYC1TAB11 PO
--- NOTE | 2021-03-11 13:52 | Diagnostic Imaging Report ---
INDICATION: Routine screening. Comparison is made with prior mammogram 08/18/2019 and 11/10/2017. 2-D and 3-D bilateral screening mammography was performed with CAD. Scattered fibroglandular densities are identified bilaterally. Calcifications in the lower slightly inner left breast appear to be stable. No new mass or malignant appearing microcalcifications are seen. Axillae are unremarkable. IMPRESSION: BI-RADS Category 2 No mammographic features suspicious for malignancy are identified. ACR BI-RADS Category 2: Benign findings. Result letter will be mailed to the patient. Note: At least 10% of breast cancer is not imaged by mammography. Dictated by: Dictated on workstation # [id number]
--- NOTE | 2021-03-11 16:22 | Diagnostic Imaging Report ---
INDICATION: 70-year-old asymptomatic postmenopausal female. COMPARISON: None available. FINDINGS: AP Spine L1-L4: [BMD (g/cm2): NA] [T-Score: NA] [Z-Score: NA] [BMD Previous: NA] [BMD % Change: NA] LT Hip Neck: [BMD (g/cm2): 0.673] [T-Score: -2.6] [Z-Score: -0.8] LT Hip Total: [BMD (g/cm2):0.789] [T-Score:-1.7] [Z-Score: -0.2] [BMD Previous: NA] [BMD % Change: NA] RT Hip Neck: [BMD (g/cm2):0.726] [T-Score:-2.2] [Z-Score:-0.5] RT Hip Total: [BMD (g/cm2):0.774] [T-score:-1.9] [Z-Score:-0.3] [BMD Previous:NA] [BMD % Change:NA] *Indicates significant change from prior examination based on 95% confidence level. World Health Organization criteria for BMD interpretation classify patients as Normal (T-score at or above -1.0), Osteopenic (T-score between -1.0 and -2.5) or Osteoporotic (T-score at or below -2.5). LIMITATIONS AND MODIFICATION: Lumbar spinal fusion with instrumentation precluding the use of the lumbar spine. FRACTURE RISK (FRAX SCORE): Not applicable as patient meets criteria for osteoporosis. IMPRESSION: 1. Osteoporosis. 2. Baseline examination. 3. See below National Osteoporosis Foundation guidelines on when to potentially initiate pharmacologic therapy. Based on the National Osteoporosis Foundation Guidelines, pharmacologic treatment should be initiated in any of the following, unless clinical conditions suggest otherwise: * Any patient with prior fragility fracture of the hip or vertebrae. A spine fracture indicates 5X risk for subsequent spine fracture and 2X risk for subsequent hip fracture. * Osteoporosis (T-score <-2.5). * Postmenopausal women and men age 50 and older with low bone mass/osteopenia (T-score between -1.0 and -2.5) by DXA and 10-year major osteoporotic fracture greater than 20% or a 10-year probability of hip fracture greater than 3%. These fracture risks are supplied above in the FRAX score, if applicable. * Clinician judgement and/or patient preferences may indicate treatment for people with 10-year fracture probabilities above or below these levels. Dictated by: Dictated on workstation # [id number]
== END ==
LOC: RAD 11:30
PROVIDERS: ATTEND Nurse Practitioner Family
DX: Z12.31 Encounter for screening mammogram for malignant neoplasm of breast (principal); M81.0 Age-related osteoporosis without current pathological fracture; Z78.0 Asymptomatic menopausal state
CPT/HCPCS: 77063; 77067; 77080

== ENCOUNTER 2022-06-24 06:31 | Outpatient (CLI) | payer MEDICARE, OTHER ==
[~2022-06-24] VITALS: Ht 154.9 cm; Wt 64.1 kg
[~2022-06-24 06:31] MED LIST changes: -ALEN70TA2 PO; +ALEN70TA85 PO; +NF-CRES10T PO; -ROSU10TA22 PO
[2022-06-24] MEDS ORDERED: TIZA-169 PO (09:32)
[2022-06-24] MEDS ORDERED: SUCR1TAB PO (09:32)
[2022-06-24] MEDS ORDERED: ROSU40TA23 PO (09:32)
== END 2022-06-24 09:36 | disposition home or self-care (01) ==
LOC: PREOP 06:31
PROVIDERS: ATTEND Surgery
DX: Z01.818 Encounter for other preprocedural examination (principal)

== ENCOUNTER 2022-07-06 07:23 | Day surgery (SDC) | payer MEDICARE, OTHER ==
[~2022-07-06] VITALS: Ht 154.9 cm; Wt 64.1 kg
[~2022-07-06 07:23] MED LIST changes: +ROSU40TA23 PO; +SUCR1TAB PO; +TIZA-169 PO
[2022-07-06] MEDS ORDERED: LACTATED RINGERS 1,000 ML IV STA (07:28)
[2022-07-06] MEDS ORDERED: HURRICAINE EXT TUBE (BENZOCAINE) XX PRN (07:30)
[2022-07-06 07:40] VITALS: BP 120/63
--- NOTE | 2022-07-06 08:28 | Progress Note-Pre Operative ---
Pre-Operative Progress Note Date of Available H&P: Jun 18, 2022 Date H&P Reviewed: Jul 06, 2022 Time H&P Reviewed: 08:23 History & Physical: H&P Reviewed, Patient Examed, No changes noted Pre-Operative Diagnosis: Chronic Gastritis KEISHA SHETH DO Jul 06, 2022 08:27
[2022-07-06] MEDS ORDERED: proPOfol 200 MG/20 ML (DIPRIVAN) VIAL IV ONE (09:12)
[2022-07-06 09:30] VITALS: BP 109/57
[2022-07-06 09:35] VITALS: BP 118/61
--- NOTE | 2022-07-06 10:26 | Progress Note-Post Operative ---
Post-Operative Progess Note Surgeon (s)/Cash Office Worker (s) Surgeon KEISHA SHETH DO Cash Office Worker: none Pre-Operative Diagnosis Chronic Gastritis Post-Operative Diagnosis Gastritis Hiatal Hernia Procedure & Operative Findings Date of Procedure 07/06/22 Procedure Performed/Findings EGD with biopsy PROCEDURE NOTE: After informed consent was obtained, the patient was brought to the endoscopy suite, placed in bed in left lateral decubitus position. She was administered IV sedation by the MANAGER PE who then monitored vitals the entire time, heart rate, blood pressure and pulse ox and the scope was inserted down the mouth through the esophagus into the stomach. Pushed into the stomach, pushed past the antrum into the duodenum. Duodenum looked good. Pulled back and noted some mild gastritis; did a biopsy of the antrum and the body of the stomach. Then retroflexed the scope, saw a moderate hiatal hernia, took a picture of this and then pulled the scope into the GE junction, took another picture of the hiatal hernia and then did a biopsy of the GE junction. Pushed the scope back into the stomach, suctioned all the air out of the stomach. At this point pulled the scope up the esophagus and out the mouth. The patient tolerated the procedure, and she recovered in endoscopy suite. Anesthesia Type IV sedation by MANAGER PE Estimated Blood Loss Estimated blood loss (mL): scant Specimens/Packing Specimens Removed antral bx body of stomach bx GE jxn bx KEISHA SHETH DO Jul 06, 2022 10:26
--- NOTE | 2022-07-06 10:27 | Endoscopy Discharge Instruct ---
Endo Procedure/Findings Findings 1.: Gastritis 2.: Hiatal Hernia Discharge Instructions - Activity: You might feel a little sleepy until tomorrow. This is due to the medicine you received to relax you. Until tomorrow, you should: NOT drive a car, operate machinery or power tools. NOT drink any alcoholic beverages. NOT make any important decisions or sign importortant papers. Do not return to work until tomorrow, unless otherwise instructed. Resume previous activities tomorrow. Diet: Start by taking liquids. If you tolerate liquids, advance to solid food. 1.: EGD in 3 years Notify Physician - If you experience excessive bleeding, unusual abdominal pain, fever, or chest pain, contact your doctor immediately. KEISHA SHETH DO Jul 06, 2022 10:27
[2022-07-06 10:44] VITALS: BP 124/68
--- NOTE | 2022-07-06 12:45 | Anesthesia-General Post-Op ---
MAC Patient Condition Mental Status/LOC: Same as Preop Cardiovascular: Satisfactory Nausea/Vomiting: Absent Respiratory: Satisfactory Pain: Controlled Complications: Absent Post Op Complications Complications None Follow Up Care/Instructions Patient Instructions None needed. Anesthesiology Discharge Order Discharge Order Patient is doing well, no complaints, stable vital signs, no apparent adverse anesthesia problems. No complications reported per nursing. GANESH HAYES CRNA Jul 06, 2022 12:45
== END 2022-07-06 10:45 | disposition home or self-care (01) ==
LOC: ENDO 07:23
PROVIDERS: ATTEND Surgery
DX: K29.50 Unspecified chronic gastritis without bleeding (principal); K44.9 Diaphragmatic hernia without obstruction or gangrene; K21.00 Gastro-esophageal reflux disease with esophagitis, without bleeding; K31.9 Disease of stomach and duodenum, unspecified; Z85.038 Personal history of other malignant neoplasm of large intestine; E66.9 Obesity, unspecified; Z68.26 Body mass index [BMI] 26.0-26.9, adult; Z87.891 Personal history of nicotine dependence; Z79.899 Other long term (current) drug therapy; Z28.310 Unvaccinated for COVID-19
CPT/HCPCS: 88305

== ENCOUNTER → 2022-07-15 | Outpatient (CLI) | payer MEDICARE, OTHER | LOC: CARD 09:15 | PROVIDERS: ATTEND Physician Assistant | DX: I34.0 Nonrheumatic mitral (valve) insufficiency (principal); I25.10 Atherosclerotic heart disease of native coronary artery without angina pectoris; I11.9 Hypertensive heart disease without heart failure | CPT/HCPCS: 93306 ==

== ENCOUNTER → 2022-07-27 | Outpatient (CLI) | payer MEDICARE, OTHER ==
[~2022-07-27] VITALS: Ht 154 cm; Wt 63.0 kg
[~2022-07-27] MED LIST changes: +CATHETER FLUSH 10 ML SYR IVP PRN; +REGADENOSON 0.4 MG/5 ML SYR (LEXISCAN) IV ONE
[2022-07-27 12:04] VITALS: BP 131/71
--- NOTE | 2022-07-28 08:03 | Cardiology Stress Test Report ---
Stress Test Report Date of Procedure/Referring: Date of Procedure: Jul 27, 2022 PCP Kaila Ahmadi DO Admitting Physician Admitting Physician: Attending Physician: Noemí Cassidy Baseline Heart Rate: 54 Baseline Blood Pressure: Blood Pressure Systolic: 131 Blood Pressure Diastolic: 71 Baseline Vitals Vital Signs Date Time Temp Pulse Resp B/P (MAP) Pulse Ox O2 Delivery O2 Flow Rate FiO2 07/27/22 12:04 54 131/71 (91) Baseline EKG: Baseline EKG: NSR Summary After explaining the procedure to the patient, she signed a consent and then brought to the stress nuclear laboratory. Patient received 0.4 mg Lexiscan for stress test, ECG, heart rate and blood pressure were monitored continuously. Resting and stress dose of radio tracer were injected, imaging was acquired and reviewed in short axis, horizontal long axis and vertical long axis views. TID: 0.9 SSS: 7 SDS: 4 EF: 72 1. Patient tolerated Lexiscan well 2. Reversible ischemia involving the mid to apical inferior wall and inferoseptum 3. Normal left ventricular size, ejection fraction 72% Copy Copies To 1: [facility]/THAO MACK MD Jul 28, 2022 08:03
== END ==
LOC: CARD 11:00
PROVIDERS: ATTEND Physician Assistant
DX: I65.23 Occlusion and stenosis of bilateral carotid arteries (principal)
CPT/HCPCS: 78452; 93017; A9502

== ENCOUNTER 2022-07-31 06:49 | Day surgery (SDC) | payer MEDICARE, OTHER ==
[2022-07-31] VITALS (8 sets, daily range): BP systolic 98–130; BP diastolic 52–79
[~2022-07-31] VITALS: Ht 154.9 cm; Wt 68.2 kg
[~2022-07-31 06:49] MED LIST changes: -CATHETER FLUSH 10 ML SYR IVP PRN; -REGADENOSON 0.4 MG/5 ML SYR (LEXISCAN) IV ONE
[2022-07-31] MEDS ORDERED: LIDOCAINE 1% INJ 30 ML (XYLOCAINE) VIAL ONE ×2 (06:58→11:48)
[2022-07-31] MEDS ORDERED: HEParin (CATH LAB) 2,000 ML IV ONE ×2 (06:58→11:48)
[2022-07-31] MEDS ORDERED: NS IV 1000 ML 1,000 ML ONE ×2 (06:58→10:50)
[2022-07-31] MEDS ORDERED: NS IV 1000 ML 1,000 ML IV SCH ×3 (07:00→09:30)
--- NOTE | 2022-07-31 07:20 | Diagnostic Imaging Report ---
INDICATION: Preoperative catheterization. Abnormal stress test. Chest pain and hypertension EXAMINATION: Chest 07/31/2022 COMPARISON: 07/23/2015 FINDINGS: Lungs hyperinflated but clear with no infiltrates or effusions. No pneumothorax. Heart and pulmonary vasculature normal. IMPRESSION: 1. Chronic findings with no acute cardiopulmonary process. Dictated by: Dictated on workstation # [id number]
[2022-07-31 07:23] LABS: HEMATOCRIT 44 % (35-52); HEMOGLOBIN 14.9 g/dL (11.5-16.0); MEAN CORPUSCULAR HEMOGLOBIN 29 pg (25-34); MEAN CORPUSCULAR HGB CONC 34 g/dL (32-36); MEAN CORPUSCULAR VOLUME 86 fL (80-99); MEAN PLATELET VOLUME 9.4 fL (9.0-12.2); PLATELET COUNT 200 10^3/uL (130-400); WHITE BLOOD COUNT 6.2 10^3/uL (4.3-11.0)
[2022-07-31] MEDS ORDERED: NITR100C PO (07:26)
[2022-07-31] MEDS ORDERED: OXYB15TA19 PO (07:26)
[2022-07-31 07:31] LABS: BILIRUBIN,URINE NEGATIVE (NEGATIVE); CLARITY,URINE CLEAR; COLOR,URINE YELLOW; GLUCOSE, URINE (UA) NEGATIVE (NEGATIVE); KETONES,URINE NEGATIVE (NEGATIVE); LEUKOCYTE ESTERASE ,URINE NEGATIVE (NEGATIVE); NITRITE,URINE NEGATIVE (NEGATIVE); PROTEIN,URINE NEGATIVE (NEGATIVE)
[2022-07-31 07:35] LABS: INR 0.9 (0.8-1.4); PROTHROMBIN TIME PATIENT 12.9 SEC (12.2-14.7)
[2022-07-31 07:45] LABS: ALBUMIN 3.5 GM/DL (3.2-4.5); BILIRUBIN,TOTAL 0.4 MG/DL (0.1-1.0); CALCIUM 9.6 MG/DL (8.5-10.1); CREATININE SERUM 0.69 MG/DL (0.60-1.30); POTASSIUM 3.6 MMOL/L (3.6-5.0)
[2022-07-31] MEDS ORDERED: MIDAZOLAM 5 MG/5 ML (VERSED) VIAL ONE ×2 (07:53→10:47)
[2022-07-31] MEDS ORDERED: NITRO DRIP 25000 MCG/D5W 0 ML IV ONE ×2 (07:53→10:47)
[2022-07-31] MEDS ORDERED: VERAPAMIL 5 MG/2 ML (CALAN) VIAL IV ONE (07:53)
[2022-07-31] MEDS ORDERED: fentaNYL INJ 100 MCG/2 ML AMP ONE ×2 (07:53→10:47)
[2022-07-31] MEDS ORDERED: HEParin 1000 UNIT/ML (10ML VIAL) FOR BOLUS ONE ×2 (07:53→10:47)
[2022-07-31 08:19] LABS: BACTERIA,URINE NEGATIVE /HPF; SQUAMOUS EPITHELIAL CELL,UR 0-2 /HPF
[2022-07-31] MEDS ORDERED: ASPIRIN 325 MG (5 GR) TABLET ONE (09:10)
[2022-07-31] MEDS ORDERED: CLOPIDOGREL 300 MG (PLAVIX) TABLET PO ONE (09:11)
--- NOTE | 2022-07-31 09:13 | Cardiac Procedure Note-CS/ASA ---
Pre-Procedure Note Pre-Op Procedure Note Date of Available H&P: Jul 28, 2022 Date H&P Reviewed: Jul 31, 2022 Time H&P Reviewed: 08:00 History & Physical: H&P Reviewed, Patient Examed, No changes noted Pre-Operative Diagnosis: CAD Conscious Sedation Pre-Proced Time 08:00 ASA Score 3 For ASA 3 and 4: Consider anesthesia and medical clearance. Also, for patients with a history of failed moderate sedation consider anesthesia. Airway Lungs Heart ASA score ASA 1: a normal healthy patient ASA 2: a patient with a mild systemic disease (mid diabetes, controlled hypertension, obesity ASA 3: a patient with a severe systemic disease that limits activity (angina, COPD, prior Myocardial infarction) ASA 4: a patient with an incapacitating disease that is a constant threat to life (CHF, renal failure) ASA 5: a moribund patient not expected to survive 24 hrs. (ruptured aneurysm) ASA 6: a declared brain- patient whose organs are being harvested. For emergent operations, add the letter E after the classification Mallampati Classification Grade 3 Sedation Plan Analgesia, Amnesia, Plan communicated to team members, Discussed options with patient/fam, Discussed risks with patient/fam The patient is an appropriate candidate to undergo the planned procedure, sedation, and anesthesia. The patient immediately re-assessed prior to indication. THAO BARRIENTOS MD Jul 31, 2022 09:13
--- NOTE | 2022-07-31 09:18 | Cardiac Cath Report ---
Cardiac Cath Report Physician (s)/Gun Synchronizer (s) Physician THAO BARRIENTOS MD Pre-Procedure Diagnosis Pre-Procedure Diagnosis: CAD Post-Procedure Note Procedure Start Date: Jul 31, 2022 Name of Procedure: Left heart catheterization Stenting to the circumflex artery Findings/Procedure Note PROCEDURE NOTE: 72-year-old lady with a history of hypertension, hyperlipidemia, had an abnormal stress test with ischemia, recommended cardiac catheterization possible PTCA. After explaining the procedure to the patient, all pros and cons were explained, all questions were answered. The patient signed the consent and then she was placed on the cardiac catheterization laboratory. Groin was prepped SL fashion local anesthesia was used. Sheath placed in the right femoral artery. Dejan right and left catheter were used to access the coronary system. Dejan right was prolapsed to the left ventricular cavity, pressure was measured, pullback LV to aorta was done. Patient has severe stenosis in the mid circumflex artery 95% stenosis. EBU guide was used, BMW wire was advanced to the distal circumflex artery, predilatation with 3.5 balloon then I proceeded with deployment of 3.5 x 15 mm clarisa point stent deployed under its nominal size 12 julio. Post intervention there was no residual stenosis. At the end of the procedure the sheath was removed. Closure device was deployed After returning to the floor I was called with the patient having active chest pain, given multiple sublingual nitroglycerin without relief. EKG did not show any acute changes. Patient became hypotensive with a blood pressure in the 80s. I decided to take her for urgent cardiac catheterization. Patient was placed again on the cardiac catheterization table. Left groin was prepped in a sterile fashion. Dejan left was advanced to the left coronary system, multiple views were obtained. Patient was noted to have significantly slow flow in all her coronary system. She started with a slow flow in the left system but at this point it appears to be diffusely. I evaluated urgently 2D echo and normal LV function was noted, no pericardial effusion was noted, no perforation was noted. I reintroduced the catheter and gave her adenosine in her left coronary system, after multiple injection there is significant improvement in the flow in her coronary system but continued to have slower flow. Blood pressure is more stable. I will start her on Integrilin bolus and a drip I will add nitroglycerin patch Given additional heparin bolus. We will monitor her overnight. FINDINGS: Hemodynamics LV 105/10, end-diastolic pressure of 10 Aorta 114/57 mean of 71 ANATOMY: Left Main is free of obstructive disease Left Anterior Descending has mild ectasia proximally with no obstructive disease distally Left Circumflex has 95% stenosis at the midportion successful balloon angioplasty and stenting using clarisa point Deirdre stent 3.5 x 12 mm with no residual stenosis. Right Coronary Artery is moderate in size with 20% stenosis in the midportion LV Gram was not done, pressure was measured CONCLUSION: 1. 95% stenosis in the mid circumflex artery with successful stenting using clarisa point Deirdre 3.5 x 12 mm with excellent results 2. Mild ectasia in the proximal LAD and mild disease in the mid right coronary artery. 3. Normal left ventricular end-diastolic pressure 4. Patient had episode of chest pain did not relieved by nitroglycerin, taken back to the Plant Accountant, coronary angiogram showed coronary spasm with diffuse ectasia and slow flow in all her coronary system. Responded to intracoronary adenosine. She will be monitored overnight DISCUSSION AND RECOMMENDATION: Patient was loaded with aspirin and Plavix. Will arrange for follow-up as an outpatient Anesthesia Type: Conscious Sedation Estimated blood loss (mL): 20 ml Contrast Amount: 50 ml Total Radiation Dose: 299 mGy Post-Procedure Diagnosis Post-operative diagnosis: Coronary artery disease Hypertension Hyperlipidemia Chest pain THAO BARRIENTOS MD Jul 31, 2022 09:18
[2022-07-31] MEDS ORDERED: ASPI-1238 PO (09:19)
[2022-07-31] MEDS ORDERED: CLOP75TA28 PO (09:19)
--- NOTE | 2022-07-31 09:19 | Discharge Inst-Post CATH ---
Discharge Inst-CATH/EP Problems Reviewed?: Yes Post Cardiac Cath/EP D/C Inst Follow Up/Plan Appointment with Dr. Hatch's office in 2 to 4 weeks <b>CARDIAC CATH/EP PROCEDURE DISCHARGE INSTRUCTIONS</b> ACTIVITY * Go Home directly and rest. * Limit activity of the leg (or wrist if it was used) for 7 days including aer obics, swimming, jogging, bicycling, etc. * Restrict stair-climbing for 7 days if possible, if not, climb up with your non-cath leg, then bring together on the same step. * Avoid lifting, pushing, pulling or excessive movement of the affected extremi ty for 7 days. * Customary sexual activity may be resumed after 2 days-use caution not to use a position that strains or causes pain to the affected extremity. * No driving for 24 hours. * NO SMOKING. * Avoid straining for bowel movements for 7 days. * Gentle walking on level ground is allowed. * Returning to work will depend on the type of procedure and the results. Your doctor will discuss this with you. CALL YOUR DOCTOR FOR ANY OF THE FOLLOWING: *If bleeding from the puncture site occurs- Apply gentle pressure to site with clean cloth and call your doctor or EMS. * If a knot or lump forms under the skin, increases in size, or causes pain. * If bruising appears to be worsening or moving further down your leg instead of disappearing. * Temperature above 101 F. CARE OF YOUR GROIN INCISION; * Bruising or purple discoloration of the skin near the puncture site is common. * You may shower only, no bathtub bathing for 5 days. Be careful to avoid slipping as your leg may feel stiff. * If a closure device was used on your femoral artery, please see the attached guide regarding care of the device and your leg. * Leave dressing on FOR 24 hours. CARE OF YOUR WRIST INCISION; * Bruising or purple discoloration of the skin near the puncture site is common. * You may shower. * DO NOT submerge wrist. * Leave dressing on FOR 24 hours. THAO HATCH MD Jul 31, 2022 09:19
[2022-07-31] MEDS ORDERED: PATIENT MAY USE OWN MEDS, ALL PO SCH ×2 (09:30→11:30)
[2022-07-31] MEDS ORDERED: NITROGLYCERIN 0.4 MG SL TABS BTL 25'S SL PRN ×2 (10:30)
[2022-07-31] MEDS ORDERED: DOBUTAMINE IV ONE (11:00)
[2022-07-31] MEDS ORDERED: HEParin (CATH LAB) 1,000 ML IV ONE (11:04)
[2022-07-31] MEDS ORDERED: ADENOSINE 6 MG/2 ML (ADENOCARD) VIAL IV ONE (11:05)
[2022-07-31] MEDS ORDERED: NS (IVPB) 250 ML ONE (11:05)
[2022-07-31] MEDS ORDERED: morphine INJ 4 MG/ML 1 ML (VIAL/SYRINGE) ONE (11:13)
[2022-07-31] MEDS ORDERED: EPTIFIBATIDE DRIP 100 ML IV ONE (11:20)
[2022-07-31] MEDS ORDERED: EPTIFIBATIDE BOLUS 20 ML IV ONE (11:20)
[2022-07-31] MEDS ORDERED: FLUTICASONE NASAL SPRAY (FLONASE) 16 GM BTL NS PRN (11:30)
[2022-07-31] MEDS ORDERED: RT-ALBUTEROL SULF 2.5 MG/3 ML PRE-MIX VIAL IH PRN (11:30)
[2022-07-31] MEDS ORDERED: NITROGLYCERIN 0.4 MG/PATCH (NITRO-DUR) TD ONE (11:30)
[2022-07-31] MEDS ORDERED: morphine INJ 10 MG/ML 1ML (SYR OR VIAL) IVP PRN (11:30)
[2022-07-31] MEDS: morphine INJ 4 MG/ML 1 ML (VIAL/SYRINGE) IV PRN ×3 (12:26→21:54)
[2022-07-31] MEDS ORDERED: NITROFURANTOIN 100 MG (MACROBID) CAPSULE PO PRN (17:30)
[2022-07-31] MEDS ORDERED: RT-ALBUTEROL HFA 8.5 GM INHALER IH PRN (17:30)
[2022-07-31] MEDS ORDERED: NITROGLYCERIN PATCH REMOVAL TP ONE (21:00)
[2022-07-31] MEDS: NS IV 1000 ML 1,000 ML IV SCH (21:30)
[2022-08-01 05:40] LABS: HEMATOCRIT 36 % (35-52); HEMOGLOBIN 12.1 g/dL (11.5-16.0); MEAN CORPUSCULAR HEMOGLOBIN 30 pg (25-34); MEAN CORPUSCULAR HGB CONC 34 g/dL (32-36); MEAN CORPUSCULAR VOLUME 87 fL (80-99); MEAN PLATELET VOLUME 9.6 fL (9.0-12.2); PLATELET COUNT 164 10^3/uL (130-400)
[2022-08-01 05:47] LABS: POTASSIUM 3.8 MMOL/L (3.6-5.0)
[2022-08-01 05:48] LABS: CALCIUM 8.9 MG/DL (8.5-10.1)
[2022-08-01 05:52] LABS: CREATININE SERUM 0.64 MG/DL (0.60-1.30)
[2022-08-01] MEDS ORDERED: LEVOTHYROXINE 50 MCG (LEVOTHROID) TAB PO SCH (06:30)
[2022-08-01] MEDS: NS IV 1000 ML 1,000 ML IV SCH (08:32)
[2022-08-01] MEDS ORDERED: ISOS30TA82 PO (08:39)
--- NOTE | 2022-08-01 08:39 | Cardiology Progress Note ---
Subjective Date Seen by Provider: Aug 01, 2022 Time Seen by Provider: 08:38 Subjective/Events-last exam Patient was seen at bedside, laying down comfortably, feeling well. No chest pain was noted Review of Systems General: No Chills, No Night Sweats, No Fatigue, No Malaise, No Appetite, No Other HEENT: No Head Aches, No Visual Changes, No Eye Pain, No Ear Pain, No Dysphasia, No Sinus Congestion, No Post Nasal Drip, No Sore Throat, No Other Pulmonary: No Dyspnea, No Cough, No Pleuritic Chest Pain, No Other Cardiovascular: No: Chest Pain, Palpitations, Orthopnea, Paroxysmal Noc. Dyspnea, Edema, Lt Headedness, Other Objective-Cardiology Exam Last Set of Vital Signs Vital Signs 08/01/22 08/01/22 08:00 08:10 Temp 36.8 Pulse 90 Resp 24 Pulse Ox 96 O2 Delivery Room Air I&O Intake and Output 08/01/22 00:00 Intake Total 2150 ml Output Total 850 ml Balance 1300 ml Intake Oral 1150 ml IV Total 1000 ml Output Urine Total 850 ml # Voids 2 Daily Weight Change No General: Alert, Oriented X3, Cooperative HEENT: Atraumatic, PERRLA Neck: Supple, No JVD, No Thyromegaly Lungs: Clear to Auscultation, Normal Air Movement Heart: Regular Rate, Normal S1, Normal S2, No Murmurs Abdomen: Normal Bowel Sounds, Soft, No Tenderness, No Hepatosplenomegaly, No Masses Extremities: No Clubbing, No Cyanosis, No Edema, Normal Pulses, No Tenderness/Swelling Skin: No Rashes, No Breakdown, No Significant Lesion Neuro: Normal Gait, Normal Speech, Strength at 5/5 X4 Ext, Normal Tone, Sensation Intact Psych/Mental Status: Mental Status NL, Mood NL Results Lab Laboratory Tests 08/01/22 05:19 A/P-Cardiology Admission Diagnosis Chest pain Non-ST elevation myocardial infarction Coronary artery disease Hypertension Assessment/Plan Chest pain nonspecific etiology, non-ST elevation myocardial infarction Cardiac catheterization was done showing severe stenosis in the mid circumflex artery with successful stenting Patient continues to have recurrent chest pain, taken back to the Veterinary Microbiologist showing slow flow due to small vessel disease. Given adenosine intracoronary with significant improvement Started on nitroglycerin patch and feeling significantly better Hypertension, continue on current medication monitor blood pressure Hyperlipidemia, maintained on Crestor 40 mg daily. Monitor lipids Carotid stenosis, nonobstructive disease, continue to monitor Hiatal hernia, gastroesophageal reflux disease BMI 35. Planning for discharge today THAO BARRIENTOS MD Aug 01, 2022 08:38
[2022-08-01] MEDS ORDERED: ASPIRIN E.C. 81 MG (ECOTRIN) TAB PO SCH ×2 (09:00)
[2022-08-01] MEDS ORDERED: OXYBUTYNIN 15 MG PO SCH (09:00)
[2022-08-01] MEDS ORDERED: CLOPIDOGREL 75 MG (PLAVIX) TABLET PO SCH ×2 (09:00)
[2022-08-01] MEDS ORDERED: NON-FORMULARY MEDICATION 1 EA EA (Rosuvastatin Calcium 40 MG) PO SCH (09:00)
[2022-08-01] MEDS ORDERED: NON-FORMULARY MEDICATION 1 EA EA (Tizanidine HCl 2 MG) PO SCH (09:00)
[2022-08-01] MEDS ORDERED: ROSUVASTATIN 40 MG TAB PO SCH (09:00)
[2022-08-01 10:21] VITALS: BP 98/57
== END 2022-08-01 09:47 | disposition home or self-care (01) ==
LOC: CATH 06:49 → CSD 09:29 → ICU 11:58 → CATH 08-01 09:47
PROVIDERS: ATTEND Internal Medicine Cardiovascular Disease
DX: I25.10 Atherosclerotic heart disease of native coronary artery without angina pectoris (principal); I10 Essential (primary) hypertension; I65.23 Occlusion and stenosis of bilateral carotid arteries; I21.4 Non-ST elevation (NSTEMI) myocardial infarction; E78.5 Hyperlipidemia, unspecified; K44.9 Diaphragmatic hernia without obstruction or gangrene; K21.9 Gastro-esophageal reflux disease without esophagitis; Z87.891 Personal history of nicotine dependence
CPT/HCPCS: 71045; 80048; 80053; 80061; 81000; 84484; 85027 ×2; 85347; 85610; 85730; 87081; 93005 ×2; 93308; 93458; 94760; C1725; C1760; C1769; C1874; C1887; C1894; C9600; 36415

== ENCOUNTER → 2022-11-11 | Outpatient (CLI) | payer MEDICARE, OTHER ==
[~2022-11-11] MED LIST changes: +ASPI-1238 PO; +CATHETER FLUSH 10 ML SYR IVP PRN; +CLOP75TA28 PO; +ISOS30TA82 PO; +NITR100C PO; +OXYB15TA19 PO; +REGADENOSON 0.4 MG/5 ML SYR (LEXISCAN) IV ONE
[2022-11-11 12:55] VITALS: BP 121/80
--- NOTE | 2022-11-11 18:31 | Cardiology Stress Test Report ---
Stress Test Report Date of Procedure/Referring: Date of Procedure: Nov 11, 2022 PCP Kaila Ahmadi DO Admitting Physician Admitting Physician: Attending Physician: Noemí Cassidy Indications: CP Baseline Heart Rate: 76 Baseline Blood Pressure: Blood Pressure Systolic: 121 Blood Pressure Diastolic: 80 Baseline Vitals Vital Signs Date Time Temp Pulse Resp B/P (MAP) Pulse Ox O2 Delivery O2 Flow Rate FiO2 11/11/22 12:55 76 121/80 (94) 98 Baseline EKG: Baseline EKG: NSR Summary After explaining the procedure to the patient, she signed a consent and then brought to the stress nuclear laboratory. Patient received 0.4 mg Lexiscan for stress test, ECG, heart rate and blood pressure were monitored continuously. Resting and stress dose of radio tracer were injected, imaging was acquired and reviewed in short axis, horizontal long axis and vertical long axis views. TID: 0.87 SSS: 10 SDS: 6 EF: 90 Patient tolerated Lexiscan well Extracardiac attenuation with increased gastric uptake affecting the quality of the images, there is a decrease uptake involving the mid to apical inferior wall and inferoseptum with reversible ischemia Small left ventricle with hyperactive ventricle, calculated ejection fraction 90%, I believe it is an overestimation Copy Copies To 1: [facility]/THAO MACK MD Nov 11, 2022 18:31
== END ==
LOC: CARD 10:45
PROVIDERS: ATTEND Physician Assistant
DX: R07.9 Chest pain, unspecified (principal)
CPT/HCPCS: 78452; 93017; A9502

== ENCOUNTER 2022-12-02 06:33 | Day surgery (SDC) | payer MEDICARE, OTHER ==
[~2022-12-02] VITALS: Ht 154.9 cm; Wt 63.9 kg
[2022-12-02] VITALS (9 sets, daily range): BP systolic 97–138; BP diastolic 48–68
[~2022-12-02 06:33] MED LIST changes: -CATHETER FLUSH 10 ML SYR IVP PRN; -REGADENOSON 0.4 MG/5 ML SYR (LEXISCAN) IV ONE
[2022-12-02] MEDS ORDERED: LIDOCAINE 1% INJ 20 ML VIAL ONE (06:58)
[2022-12-02] MEDS ORDERED: HEParin (CATH LAB) 2,000 ML IV ONE (06:58)
[2022-12-02] MEDS ORDERED: NS IV 1000 ML 1,000 ML ONE (06:58)
[2022-12-02] MEDS ORDERED: NS IV 1000 ML 1,000 ML IV SCH ×2 (07:00→09:15)
[2022-12-02 07:24] LABS: HEMATOCRIT 46 % (35-52); HEMOGLOBIN 15.4 g/dL (11.5-16.0); MEAN CORPUSCULAR HEMOGLOBIN 30 pg (25-34); MEAN CORPUSCULAR HGB CONC 34 g/dL (32-36); MEAN CORPUSCULAR VOLUME 89 fL (80-99); MEAN PLATELET VOLUME 8.9 fL (9.0-12.2); PLATELET COUNT 225 10^3/uL (130-400); WHITE BLOOD COUNT 6.6 10^3/uL (4.3-11.0)
[2022-12-02 07:25] LABS: BILIRUBIN,URINE NEGATIVE (NEGATIVE); CLARITY,URINE CLEAR; COLOR,URINE YELLOW; GLUCOSE, URINE (UA) NEGATIVE (NEGATIVE); KETONES,URINE NEGATIVE (NEGATIVE); LEUKOCYTE ESTERASE ,URINE NEGATIVE (NEGATIVE); NITRITE,URINE NEGATIVE (NEGATIVE); PROTEIN,URINE NEGATIVE (NEGATIVE)
[2022-12-02] MEDS ORDERED: CLOP-31 PO (07:30)
[2022-12-02] MEDS ORDERED: RANO500T6 PO (07:30)
[2022-12-02] MEDS ORDERED: HYDR25TA4 PO (07:30)
[2022-12-02] MEDS ORDERED: OMEP20CA18 PO (07:30)
[2022-12-02] MEDS ORDERED: FESO4TAB PO (07:30)
[2022-12-02] MEDS ORDERED: fentaNYL INJ 100 MCG/2 ML AMP ONE (07:35)
[2022-12-02] MEDS ORDERED: MIDAZOLAM 5 MG/5 ML (VERSED) VIAL ONE (07:35)
--- NOTE | 2022-12-02 07:47 | Diagnostic Imaging Report ---
INDICATION: Abnormal stress test, pre-catheterization evaluation. TECHNIQUE: Single view chest 7:24 AM. CORRELATION STUDY: 07/31/2022 FINDINGS: The heart size, mediastinal configuration and pulmonary vascularity are within normal limits. Lung saavedra hyperinflated but overall clear. IMPRESSION: 1. Stable chest. No acute abnormality. Dictated by: Dictated on workstation # [id number]
[2022-12-02 07:54] LABS: ALBUMIN 3.6 GM/DL (3.2-4.5); BILIRUBIN,TOTAL 0.6 MG/DL (0.1-1.0); CALCIUM 9.2 MG/DL (8.5-10.1); CREATININE SERUM 0.73 MG/DL (0.60-1.30); POTASSIUM 3.5 MMOL/L (3.6-5.0); TOTAL PROTEIN 6.2 GM/DL (6.4-8.2)
[2022-12-02 07:58] LABS: BACTERIA,URINE TRACE /HPF; RBC,URINE RARE /HPF
[2022-12-02 08:07] LABS: PROTHROMBIN TIME PATIENT 13.3 SEC (12.2-14.7)
--- NOTE | 2022-12-02 08:31 | Cardiac Procedure Note-CS/ASA ---
Pre-Procedure Note Pre-Op Procedure Note Date of Available H&P: Nov 26, 2022 Date H&P Reviewed: Dec 02, 2022 Time H&P Reviewed: 08:31 History & Physical: H&P Reviewed, Patient Examed, No changes noted Pre-Operative Diagnosis: CAD Moderate Sedation PreProcedure Time 08:31 ASA Score 3 Airway Lungs Heart ASA score ASA 1: a normal healthy patient ASA 2: a patient with a mild systemic disease (mid diabetes, controlled hypertension, obesity ASA 3: a patient with a severe systemic disease that limits activity (angina, COPD, prior Myocardial infarction) ASA 4: a patient with an incapacitating disease that is a constant threat to life (CHF, renal failure) ASA 5: a moribund patient not expected to survive 24 hrs. (ruptured aneurysm) ASA 6: a declared brain- patient whose organs are being harvested. For emergent operations, add the letter E after the classification Mallampati Classification Grade 3 Sedation Plan Analgesia, Amnesia, Plan communicated to team members, Discussed options with patient/fam, Discussed risks with patient/fam The patient is an appropriate candidate to undergo the planned procedure, sedation, and anesthesia. The patient immediately re-assessed prior to indication. THAO BARRIENTOS MD Dec 02, 2022 08:31
--- NOTE | 2022-12-02 09:05 | Discharge Inst-Post CATH ---
Discharge Inst-CATH/EP Problems Reviewed?: Yes Post Cardiac Cath/EP D/C Inst Follow Up/Plan Appointment with Dr Hatch in 2-4 weeks <b>CARDIAC CATH/EP PROCEDURE DISCHARGE INSTRUCTIONS</b> ACTIVITY * Go Home directly and rest. * Limit activity of the leg (or wrist if it was used) for 7 days including aerobics, swimming, jogging, bicycling, etc. * Restrict stair-climbing for 7 days if possible, if not, climb up with your non-cath leg, then bring together on the same step. * Avoid lifting, pushing, pulling or excessive movement of the affected extremity for 7 days. * Customary sexual activity may be resumed after 2 days-use caution not to use a position that strains or causes pain to the affected extremity. * No driving for 24 hours. * NO SMOKING. * Avoid straining for bowel movements for 7 days. * Gentle walking on level ground is allowed. * Returning to work will depend on the type of procedure and the results. Your doctor will discuss this with you. CALL YOUR DOCTOR FOR ANY OF THE FOLLOWING: *If bleeding from the puncture site occurs- Apply gentle pressure to site with clean cloth and call your doctor or EMS. * If a knot or lump forms under the skin, increases in size, or causes pain. * If bruising appears to be worsening or moving further down your leg instead of disappearing. * Temperature above 101 F. CARE OF YOUR GROIN INCISION; * Bruising or purple discoloration of the skin near the puncture site is common. * You may shower only, no bathtub bathing for 5 days. Be careful to avoid slipping as your leg may feel stiff. * If a closure device was used on your femoral artery, please see the attached guide regarding care of the device and your leg. * Leave dressing on FOR 24 hours. CARE OF YOUR WRIST INCISION; * Bruising or purple discoloration of the skin near the puncture site is common. * You may shower. * DO NOT submerge wrist. * Leave dressing on FOR 24 hours. THAO HATCH MD Dec 02, 2022 09:05
[2022-12-02] MEDS ORDERED: PATIENT MAY USE OWN MEDS, ALL PO SCH (09:15)
--- NOTE | 2022-12-02 09:16 | Cardiac Cath Report ---
Cardiac Cath Report Physician (s)/Industrial Cook (s) Physician THAO BARRIENTOS MD Pre-Procedure Diagnosis Pre-Procedure Diagnosis: CAD Post-Procedure Note Procedure Start Date: Dec 02, 2022 Name of Procedure: Left heart catheterization [id number] Findings/Procedure Note PROCEDURE NOTE: After explaining the procedure to the patient, all pros and cons were explained, all questions were answered. The patient signed the consent and then she was placed in the cardiac catheterization laboratory. Groin was prepped in SL fashion local anesthesia was used. Sheath placed in the right femoral artery. Dejan' right and left catheter were used to access the coronary system. Pigtail was used to access the left ventricular cavity. Left ventriculogram was not done At the end of the procedure the sheath was removed. Manual pressure applied FINDINGS: Hemodynamics LV 126/12 end diastolic pressure 12 Aorta 114/55 Mean of 76 ANATOMY: Left Main is free of obstructive disease Left Anterior Descending has mild ectasia proximally with slow flow distally due to small vessel disease Left Circumflex is known to have a stent in the mid circumflex artery, patent stent with 20% stenosis proximal to the stent otherwise no obstructive disease Right Coronary Artery is dominant artery with no obstructive disease LV Gram was not done, pressure was measured CONCLUSION: Patent stent in the circumflex artery with 20% stenosis proximal to the stent otherwise no obstructive disease Mild ectasia in the proximal LAD with slow flow distally due to small vessel disease nonobstructive disease Normal left ventricular end-diastolic pressure DISCUSSION AND RECOMMENDATION: Abnormal stress test is due to small vessel disease, medical therapy is recommended no intervention is warranted Anesthesia Type: Conscious Sedation Estimated blood loss (mL): 15 ml Contrast Amount: 25 ml Total Radiation Dose: 165 mGy Post-Procedure Diagnosis Post-operative diagnosis: Chest pain Coronary artery disease Hypertension Hyperlipidemia THAO BARRIENTOS MD Dec 02, 2022 09:16
== END 2022-12-02 13:35 | disposition home or self-care (01) ==
LOC: CATH 06:33 → SDC 09:49 → CATH 13:35
PROVIDERS: ATTEND Internal Medicine Cardiovascular Disease
DX: I25.10 Atherosclerotic heart disease of native coronary artery without angina pectoris (principal); I10 Essential (primary) hypertension; I65.23 Occlusion and stenosis of bilateral carotid arteries; K21.9 Gastro-esophageal reflux disease without esophagitis; E78.5 Hyperlipidemia, unspecified; K44.9 Diaphragmatic hernia without obstruction or gangrene; R73.03 Prediabetes; E66.9 Obesity, unspecified; Z87.891 Personal history of nicotine dependence; Z79.899 Other long term (current) drug therapy; Z79.82 Long term (current) use of aspirin; Z79.01 Long term (current) use of anticoagulants; Z68.35 Body mass index [BMI] 35.0-35.9, adult
CPT/HCPCS: 71045; 80053; 80061; 81000; 85027; 85610; 85730; 87081; 93005; 93458; C1894; 36415